=== PATIENT | male | born 1980 | race Caucasian/White ===

== ENCOUNTER 2022-11-27 16:45 | Emergency (ER) | payer MEDICAID, SELFPAY ==
[2022-11-27 16:46] VITALS: BP 140/89; PULSE 89; RESP 18; TEMP 36; O2SAT 97; BMI 36.9
--- NOTE | 2022-11-27 17:08 | CT_ITS ---
STUDY: CT Abdomen And Pelvis W/O Contrast Injection 11/27/2022 6:02 PM REASON FOR EXAM: Male, 42 years old. ABDOMINAL PAIN flank pain TECHNIQUE: Transaxial images were obtained without oral contrast, and without intravenous contrast. Individualized dose optimization techniques were used for this CT. COMPARISON: None. FINDINGS: The visualized lung bases are unremarkable. The visualized portions of the heart are within normal limits. Unremarkable liver. Unremarkable gallbladder and extrahepatic biliary system. Unremarkable spleen. Unremarkable pancreas. Unremarkable bilateral adrenal glands. No acute findings of the right kidney. No acute findings of the left kidney. Unremarkable visualized stomach. Unremarkable small intestine. Unremarkable colon. The appendix is visualized and appears unremarkable. There are no acute findings of the abdominal aorta. Unremarkable inferior vena cava. Subcentimeter mesenteric lymph nodes. Unremarkable urinary bladder. Unremarkable abdominal wall. Large posterior disc bulge osteophyte complex at L4-5 causing [address] spinal stenosis. CT/Abdomen/Pelvis without Cont IMPRESSION: (NOT LISTED IN ORDER OF SIGNIFICANCE) There are no renal stones. There is no hydronephrosis. Large posterior disc bulge osteophyte complex at L4-5 causing severe spinal stenosis. Other findings as above. Electronically Signed: Ivan Escobedo MD at 18:05 EDT ,
--- NOTE | 2022-11-27 17:09 | EDS_ITS ---
HPI History of Present Illness Chief Complaint: Flank Pain Informant: patient Onset/Context/Timing Onset: Days Context: Gradual Onset Timing: Waxes and wanes Current Severity: Mild Maximum Severity: Moderate Narrative Narrative: Patient presents with bilateral flank pain. He reports pain across his back on the lower ribs that will occasionally wrap around his abdomen. It is left and right equally. He denies hematuria or dysuria. No history of kidney stones. He states that the pain and cramping will get better after he drinks Gatorade but then will return. [facility] Medical History Depression GERD (gastroesophageal reflux disease) Seasonal allergies Home Medications prednisone 20 mg tablet 40 mg (2 x 20 mg) PO DAILY #8 tabs 11/27/22 [Rx Last Taken Unknown] Allergy/AdvReac Type Severity Reaction Status Date / Time codeine Allergy Intermediate Rash Verified 11/27/22 17:24 Social History Smoking Status: Never smoker ROS ROS ED Constitutional Constitutional ED: Denies chills or fever(s) Eyes Eyes: Denies change in vision or discharge from eye(s) ENT ENT ED: Denies discharge from eye(s), rhinorrhea or sore throat Cardiovascular Cardiovascular: Denies chest pain Respiratory/Chest Respiratory/Chest: Denies cough or dyspnea Gastrointestinal Gastrointestinal: Reports abdominal pain; Denies diarrhea, nausea or vomiting Genitourinary Genitourinary ED: Denies difficulty urinating, dysuria or hematuria Musculoskeletal Musculoskeletal: Reports back pain; Denies extremity pain Integumentary Denies Abrasions or rash Neurologic Neurologic: Reports headache(s); Denies weakness Psychiatric Psychiatric: Denies anxiety or depression Allergic/Immunologic Allergic/Immunologic ED: Denies lip swelling or urticaria EXAM Physical Exam Const Vital Signs: 11/27/22 16:46 Temperature 96.8 F L Temperature Source Temporal Pulse Rate 89 Respiratory Rate 18 Blood Pressure 140/89 H Blood Pressure Mean 106 Pulse Ox 97 Oxygen Delivery Method Room Air Positive well nourished and well developed General Appearance ED: well developed HEENT Reports normocephalic and head/scalp atraumatic Eyes PERRL and EOMs intact bilaterally Neck supple Chest Wall inspection of chest normal and palpation of chest normal Resp normal respiratory effort and clear to auscultation bilaterally Cardio regular rate and regular rhythm GI non-tender Palpation: soft Back/Spine no CVA tenderness Extremity normal to inspection Neuro oriented x3 and no sensory deficits noted Sensorium / Orientation: alert Motor Exam: strength 5/5 throughout Psych mental status grossly normal Skin no rashes or lesions noted MDM MDM MDM Narrative Medical decision making narrative: Labwork obtained to evaluate for leukocytosis, anemia, and electrolyte derangement. Urinalysis obtained to evaluate for infection/hematuria. CT flank obtained to evaluate for renal stone or hydronephrosis. 1 L of IV fluids ordered. Lab Data Attestation: I reviewed the patient's lab results. Labs: Laboratory Results - last 24 hr 11/27/22 11/27/22 16:55 17:23 WBC 9.3 RBC 5.11 Hgb 15.2 Hct 45.4 MCV 88.8 MCH 29.7 MCHC 33.5 RDW Std Deviation 43.0 RDW Coeff of Mela 13.2 Plt Count 263 MPV 11.4 Immature Gran % (Auto) 0.300 Neut % (Auto) 59.9 Lymph % (Auto) 29.6 [place] % (Auto) 7.8 Eos % (Auto) 1.9 Baso % (Auto) 0.5 Absolute Neuts (auto) 5.6 Absolute Lymphs (auto) 2.75 Nucleated RBC % 0 Sodium 140 Potassium 3.9 Chloride 108 H Carbon Dioxide 25.0 Anion Gap 7 BUN 15 Creatinine 1.17 Estim Creat Clear Calc 82.25 Est GFR (MDRD) Af Amer 88 Est GFR (MDRD) Non-Af 73 BUN/Creatinine Ratio 12.8 Glucose 104 Calcium 9.1 Urine Color Yellow Urine Clarity Clear Urine pH 5.0 Ur Specific [place] 1.025 Urine Protein 15 H Urine Glucose (UA) Normal Urine Ketones Negative Urine Occult Blood Negative Urine Nitrite Negative Urine Bilirubin Negative Urine Urobilinogen Normal Ur Leukocyte Esterase Negative Urine RBC 0 SEEN Urine WBC 0 SEEN Ur Squamous Epith Cells 0-5 SEEN Urine Bacteria 0 SEEN Urine Mucus 0 SEEN Radiography Diagnostic Testing: Clinical Impression(s) from Imaging Studies Abdomen/Pelvis CT 11/27/22 17:08 IMPRESSION: (NOT LISTED IN ORDER OF SIGNIFICANCE) There are no renal stones. There is no hydronephrosis. Large posterior disc bulge osteophyte complex at L4-5 causing severe spinal stenosis. Other findings as above. Electronically Signed: Ivan Escobedo MD at 18:05 EDT , Treatment and Re-Evaluation :: CBC was normal white count 9.3. Hemoglobin is normal at 15.2. Chemistry studies reveal normal renal function with a BUN of 15 and a creatinine 1.17. His chloride is 108. Urinalysis reveals 15 protein but no other acute abnormalities noted. On repeat evaluation patient states he does feel about 95% better after getting IV fluids. CT scan of the flank is reviewed with him. There is no evidence of renal or ureteral stone. A disc bulge at L4-5 is noted with severe spinal stenosis. Patient does report has been having intermittent sciatic symptoms on the right side. He is scheduled to see his doctor on Wednesday about this. We will treat him with a 5-day burst of steroids to help with nerve inflammation. He will follow-up with his doctor as scheduled. Return instructions given. Discharge Plan Triage Chief Complaint: Flank Pain ED Provider: Jackelin Amaya Dx/Rx/DC Orders Clinical Impression: Sciatica, Flank pain Instructions: ED Flank Pain, Uncertain Cause, ED Sciatica Prescriptions: New prednisone 20 mg tablet 40 mg PO DAILY Qty: 8 0RF Primary Care Provider: Conor Seaman Referrals: Conor Seaman MD [Primary Care Provider] - Keep Ingris appointment Care Physician,No Primary [Non-Staff] - Disposition Disposition: Home, Self Care
[2022-11-27 17:17] LABS: Bacteria 0 SEEN /hpf (None Seen); Mucous, Urine 0 SEEN /hpf (<or=2+); Red Blood Cells-Urine 0 SEEN /hpf (0-5); White Blood Cells 0 SEEN /hpf (0-5)
[2022-11-27] MEDS: 0.9% Normal Saline 1,000 ML 1000 ML IV (17:22)
[2022-11-27 17:28] LABS: Color, Urine Yellow (Yellow); Glucose, Dipstick Normal (Normal); Ketone-Dipstick Negative (Negative); Leukocyte Esterase-Dipstick Negative /ul (Negative); Nitrite-Dipstick Negative (Negative); Occult Blood-Urine Negative /ul (Negative); Protein-Dipstick 15 mg/dl (Negative); Specific Gravity, Urine 1.025 (1.002-1.030); Urine Bilirubin Dipstick Negative (Negative); Urine Clarity Clear (Clear); Urine Urobilinogen Normal (Normal)
[2022-11-27 17:32] LABS: Absolute Lymphocyte Count 2.75 X10^3/uL (0.83-4.51); Absolute Neutrophil Count 5.6 X10^3/uL (2.0-7.7); Basophil# 0.05 X10^3/uL; Basophil% 0.5 % (0-1); Eosinophil# 0.18 X10^3/uL; Eosinophils% 1.9 % (0-5); Hematocrit 45.4 % (40-54); Hemoglobin 15.2 g/dL (13.0-16.5); Lymphocyte # 2.75 X10^3/ul (0.83-4.51); Lymphocyte % 29.6 % (19-41); Mean Corp Hgb Conc 33.5 g/dL (32-36); Mean Corpuscular Hgb 29.7 pg (27.0-32.0); Mean Corpuscular Volume 88.8 fL (80-94); Mean Platelet Vol. 11.4 fl (6.2-12.0); Monocyte# 0.72 X10^3/uL; Monocyte% 7.8 % (0-10); NRBC Flagged by Analyzer 0 % (0-5); Neutrophil # 5.55 X10^3/uL (2.7-7.7); Neutrophil % 59.9 % (47-70); Platelet Count 263 K/mm3 (150-450); RBC Distribution Width CV 13.2 % (11.6-14.6); Red Blood Count 5.11 M/mm3 (4.6-6.2); White Blood Count 9.3 K/mm3 (4.4-11.0)
[2022-11-27 17:48] LABS: Anion Gap 7 (5-15); BUN 15 mg/dL (7-18); BUN/Creat Ratio 12.8 RATIO (10-20); Calcium,Total 9.1 mg/dL (8.5-10.1); Chloride 108 mmol/L (98-107); Creatinine, Serum 1.17 mg/dL (0.70-1.30); EST Glomerular Filtration Rate 73 mL/min (>60); Est Glom Filt Rate - Afr Amer 88 mL/min (>60); Estimated Creatinine Clearance 82.25 ml/min; Glucose 104 mg/dL (74-106); Potassium 3.9 mmol/L (3.5-5.1); Sodium Level 140 mmol/L (136-145)
[2022-11-27 18:02] LABS: Squamous Epithelial Cells - UA 0-5 SEEN /hpf (0-5)
[2022-11-27] MEDS: predniSONE 20 MG Tablet 40 MG PO (18:33)
== END 2022-11-27 18:37 | disposition home or self-care (01) ==
PROVIDERS: Emergency Provider Emergency Medicine; PCP Family Medicine; Visit Provider Emergency Medicine
DX: R10.9 Unspecified abdominal pain (principal); M54.30 Sciatica, unspecified side
CPT/HCPCS: 74176; 80048; 81001; 85025; 99283; J7030; A4216

== ENCOUNTER 2025-05-19 15:05 | Emergency (ER) | payer MEDICAID, SELFPAY ==
[2025-05-19 15:06] VITALS: BP 158/112; PULSE 69; RESP 18; TEMP 36.8; O2SAT 100
--- NOTE | 2025-05-19 15:09 | ED.VIS.CHEST ---
HPI History of Present Illness Chief Complaint: Chest Pain [facility] Medical History (Updated 05/19/25 @ 15:24 by Nicole Coleman) Cardiomegaly Asthma Depression Seasonal allergies GERD (gastroesophageal reflux disease) Home Medications ?Medication ?Instructions ?Recorded ?Last Taken ?Type prednisone 20 mg tablet 40 mg (2 x 20 mg) PO DAILY #8 tabs 11/27/22 Unknown Rx ondansetron 4 mg disintegrating 4 mg PO Q8H PRN PRN Nausea #10 tabs 05/19/25 Unknown Rx tablet prednisone 50 mg tablet 50 mg PO DAILY 5 days #5 tabs 05/19/25 Unknown Rx Allergy/AdvReac Type Severity Reaction Status Date / Time codeine Allergy Intermediate Rash Verified 05/19/25 15:07 Social History Smoking Status: Never smoker EXAM Physical Exam Const Vital Signs: 05/19/25 15:06 05/19/25 16:06 05/19/25 17:54 Temperature 98.2 F Temperature Source Oral Pulse Rate 69 82 55 L Respiratory Rate 18 18 18 Blood Pressure 158/112 H 158/94 H 139/110 H Blood Pressure Mean 127 115 119 Pulse Ox 100 99 Oxygen Delivery Method Room Air Room Air 05/19/25 18:00 05/19/25 18:48 Temperature 97.9 F Temperature Source Pulse Rate 69 74 Respiratory Rate 18 16 Blood Pressure 140/84 H 119/95 H Blood Pressure Mean 102 103 Pulse Ox 99 99 Oxygen Delivery Method Heart Score History: Slightly/Non-Suspicious ECG: Normal Age: </= 45 years Risk Factors: 1 or 2 Risk Factors Troponin: </= Normal Limit Score: 1 MDM MDM MDM Narrative Medical decision making narrative: HISTORY OF PRESENT ILLNESS: Chief complaint: Chest pain, shortness of breath 44-year-old male history of depression, asthma GERD and seasonal allergies. Patient states has had 1/2 weeks of squeezing chest pains located left side of his chest. Does not radiate. Is not exertional. Is not associated with food. He does note occasional shortness of breath that he attributes to his asthma. He denies bleeding diathesis. Denies recent illnesses. Denies sick contacts. Denies vomiting or diarrhea. The patient denies recent surgery in the last 4 weeks or immobilization in the last 3 days, denies previous diagnosis of DVT or PE, hemoptysis, unilateral leg swelling or malignancy with treatment the last 6 months or palliative. No estrogen use noted. Patient denies sudden onset of pain, no tearing sensation, no migratory symptoms, no new numbness, weakness or loss of sensation. Patient denies family history or personal history of Connective tissue disorders (Marfan's Syndrome, Jc Danlos etc) REVIEW OF SYSTEMS: Pertinent positives: Chest pain, shortness of breath, cough Pertinent negatives: Fevers, leg swelling, focal weakness, syncope PHYSICAL EXAM: Nursing triage notes reviewed, Vital signs reviewed Constitutional: please see [facility] HENT: MMM Eyes: Pupils equal round and reactive to light, Extraocular muscles intact Neck: No stridor, no JVD, full neck ROM Lungs: Clear to auscultation, No wheezing or rales. No increased work of breathing, no conversational dyspnea, no accessory muscle use, no nasal flaring. No respiratory distress noted Heart: Regular rate and rhythm, No murmurs, No rubs and No gallops, 2+ distal pulses (radial, femoral, posterior tibial) in all extremities Abdomen: Soft, there is no tenderness, rigidity, rebound or guarding, no obvious peritoneal signs, no palpable pulsatile abdominal masses, no auscultated abdominal bruit : No CVAT Extremities: No edema Neuro: No new focal neurological deficits, cranial nerves II through XII intact, 5/5 strength in all present extremities. Intact sensation to light touch in all present extremities, 2+ reflexes bilateral patella tendons. Skin: No rash or lesions noted MEDICAL DECISION MAKING: Chief Complaint: please see HPI External records reviewed: Reviewed prior cardiovascular testing: No recent cardiovascular testing noted in [facility]. Reviewed [facility] which reported history of COVID induced cardiomyopathy, hyperlipidemia, hypertension, KAI, obesity Factors affecting care: As per HPI Social determinants of health: Denies illicit drug use, cocaine, methamphetamine History obtained from others: Significant other Consults: none [facility] Narrative: The patient was initially hypertensive with a blood pressure 158/112 otherwise afebrile saturating 100% room air. Exam without focal cardiopulmonary abnormalities. No stigmata of VTE, CHF or aortic dissection on initial exam I considered the following differential diagnosis: ACS, arrhythmia, anemia, electrolyte disturbance, pneumonia, aortic dissection, PE I obtained a broad lab and imaging work to further determine if the patient was suffering from a life-threatening etiology. While I considered pulmonary embolism as a potential etiology the patient low risk Wells score and was not tachycardic or hypoxic his EKG had no signs of heart strain. I have a low suspicion for PE at this time. No indication for additional testing such as D-dimer or CT at this time While I considered aortic dissection as a potential etiology the patient had no pulse deficits, had no history personal or family or otherwise of connective tissue disorders, I have a low suspicion for aortic dissection. ALL IMAGES (IF OBTAINED) HAVE BEEN PERSONALLY REVIEWED AND INTERPRETED BY MYSELF. EKG with normal sinus rhythm rate of 60, left ax deviation, normal intervals, no STEMI, no sign of right heart strain. No specific changes associated with pericarditis High-sensitivity troponin is negative, no evidence of myocardial ischemia CBC without leukocytosis, severe anemia, no thrombocytopenia. BMP without evidence of significant electrolyte abnormalities, no anion gap, no acute kidney injury. I have personally reviewed the patient's chest x-ray. Chest x-ray is unremarkable for pulmonary edema, pneumothorax, pneumonia or focal cardiopulmonary abnormality. COVID/RSV/flu negative Delta troponin also negative essentially ruling out ACS based on [facility]'s high-sensitivity troponin protocol Low risk heart score. The synthesis of the patient's history, physical exam, labs images suggest no acute life-limiting etiology to explain the patient's symptoms. It could be GI in origin. Recommend him follow-up with the GI doctor locally as well as final inspector and tester. Strict return precaution were discussed. The patient and/or family, caregivers express understanding. The patient and/or family, caregivers agrees with the plan. Shared decision making: I will have a discussion with the patient and or visitors regarding risk/benefits of further testing or admission. They will be made aware of of the risk/benefits inherent in this decision they will be given the opportunity to voice understanding. Total critical care time today provided was at least 0 minutes. This excludes separately billable procedures. Critical care time (if documented) is secondary to the patient having high probability of clinically significant/life threatening deterioration in the patient's condition which required my urgent intervention. Impression: 1. Chest Pain 2. History of Cardiomyopathy Dispo: Discharge home This note was generated with [employer] dictation software. It may contain incorrect words, spelling, and punctuation that were not noted in review of the chart prior to signing. Lab Data Labs: Laboratory Results - last 24 hr 05/19/25 05/19/25 15:30 17:40 WBC 10.9 RBC 5.15 Hgb 15.6 Hct 44.3 MCV 86.0 MCH 30.3 MCHC 35.2 RDW Std Deviation 41.4 RDW Coeff of Mela 13.2 Plt Count 281 MPV 11.0 Immature Gran % (Auto) 0.500 Neut % (Auto) 63.8 Lymph % (Auto) 25.7 [place] % (Auto) 7.8 Eos % (Auto) 1.7 Baso % (Auto) 0.5 Absolute Neuts (auto) 7.0 Absolute Lymphs (auto) 2.80 Nucleated RBC % 0 Sodium 141 Potassium 4.3 Chloride 106 Carbon Dioxide 23.1 Anion Gap 12 BUN 20 H Creatinine 1.20 Est GFR (MDRD) Non-Af 76 BUN/Creatinine Ratio 16.8 Glucose 92 Calcium 9.7 Troponin T High Sens 10 Troponin T Hi Sens 2 Hr 8 Radiography Diagnostic Testing: Clinical Impression(s) from Imaging Studies Chest X-Ray 05/19/25 15:40 IMPRESSION: No acute cardiopulmonary process. Reading Location: [facility] Discharge Plan Triage Chief Complaint: Chest Pain ED Provider: Celestino Ortiz Dx/Rx/DC Orders Instructions: ED Chest Pain, Uncertain Cause Prescriptions: New ondansetron 4 mg tablet,disintegrating 4 mg PO Q8H PRN PRN (Reason: Nausea) Qty: 10 0RF prednisone 50 mg tablet 50 mg PO DAILY 5 Days Qty: 5 0RF No Action prednisone 20 mg tablet 40 mg PO DAILY Qty: 8 0RF Primary Care Provider: Conor Seaman Referrals: Your Trumpet Player [Other] Friend,DO Claude [Med Staff - Active Staff, Gastroenterology] Conor Seaman MD [Primary Care Provider, Medical] Activity Restrictions/Additional Instructions: Thank you for trusting us with your care today! Your labs images are reassuring. Specifically they do not show signs of heart attack, pneumonia, significant blood count or electrolyte abnormalities. Please take Tylenol (2 pills, 650 mg), ibuprofen (2 pills, 400 mg) every 6 hours as needed for pain and fever control. Please take Zofran as needed for nausea vomiting control. Please begin taking a proton pump inhibitor (i.e. Nexium). This can be obtained [id number]. Please return to the emergency department if your symptoms change or worsen. Please follow with Gastroenterology (Dr. Rodriguez) and your cardiology for further outpatient evaluation and management. Print Language: Slovenian Disposition Disposition: Home, Self Care Discharge Date/Time: 05/19/25 18:58
--- NOTE | 2025-05-19 15:13 | EKG12_ITS ---
Test Reason : CP Blood Pressure : */* mmHG Vent. Rate : 60 BPM Atrial Rate : 60 BPM P-R Int : 156 ms QRS Dur : 94 ms QT Int : 380 ms P-R-T Axes : -22 -8 -1 degrees QTcB Int : 380 ms Normal sinus rhythm Minimal voltage criteria for LVH, may be normal variant ( R in aVL ) Borderline ECG Confirmed by Judah Rahman ([id number]), writer editor JOLYNN ROMAN ([id number]) on 05/25/2025 7:28:40 AM Referred By: Confirmed By: Judah Rahman
--- OUTSIDE RECORDS SUMMARY | 2025-05-19 15:32 | XMS RPT_ITS | CCD ---
Author Organization [facility] Care Team Providers Care Pr Manager Name Role Phone PATRICIALAWRENCEKYLIE MURRAY A Unavailable Unavailable PATRICIASHARONA KYLIE A Unavailable Unavailable Conor Pantoja MD Primary Care Provider Conor Pantoja MD Primary Care Provider Conor Pantoja MD Primary Care Provider Conor Pantoja MD Primary Care Provider Conor Pantoja Care Unavailable Jackelin Amaya Attending Unavailable DENG WOLF Attending Unavailable DENG WOLF Admitting Unavailable CONOR PANTOJA Primary Care Unavailable CONOR PANTOJA Primary Care Unavailable DENG WOLF Attending Unavailable DENG WOLF Admitting Unavailable Conor Pantoja MD Primary Care Provider Haagen OIL PIPE INSPECTOR HELPER.Asha ALLEN Unavailable Suppan OIL PIPE INSPECTOR HELPER.TIFFANY, Denice A Unavailable SILAS BROWN Admitting Unavailable SILAS BROWN Attending Unavailable CONOR PANTOJA Primary Care Unavailable Suppan OIL PIPE INSPECTOR HELPER.TIFFANY, Denice A Unavailable Suppan OIL PIPE INSPECTOR HELPER.TIFFANY, Denice A Unavailable SILAS BROWN Attending Unavailable CONOR PANTOJA Primary Care Unavailable MEGHAN QUEZADA Attending Unavailable CONOR PANTOJA Primary Care Unavailable SILAS BROWN Attending Unavailable RISA STEINER Referring Unavailable CONOR PANTOJA Primary Care Unavailable SILAS BROWN Attending Unavailable CONOR PANTOJA Primary Care Unavailable CONOR PANTOJA Primary Care Unavailable IGOR QUIJANO Referring Unavailable CONOR PANTOJA Primary Care Unavailable DEBORA BALDWIN Referring Unavailable CONOR PANTOJA Attending Unavailable CONOR PANTOJA Primary Care Unavailable CONOR PANTOJA Referring Unavailable CONOR PANTOJA Primary Care Unavailable CONOR PANTOJA Primary Care Unavailable CONOR PANTOJA Referring Unavailable KIT, CONOR Ramos Primary Care Unavailable KIT, CONOR Ramos Referring Unavailable MAK MORALES Attending Unavailable MEGHAN NAIK Referring Unavailable KIT, CONOR Ramos Primary Care Unavailable MEGHAN NAIK Referring Unavailable CONOR PANTOJA Primary Care Unavailable KIT, CONOR Ramos Primary Care Unavailable ALYSE MAGANA Attending Unavailable KIT, CONOR Ramos Referring Unavailable KIT, CONOR Ramos Primary Care Unavailable KIT, CONOR Ramos Referring Unavailable SILAS BROWN Referring Unavailable KIT, CONOR Ramos Primary Care Unavailable KIT, CONOR Ramos Primary Care Unavailable RISA CAMPA Attending Unavailable KIT, CONOR Ramos Primary Care Unavailable RISA CAMPA Referring Unavailable KIT, CONOR Ramos Attending Unavailable KITCONOR Primary Care Unavailable KIT, CONOR Ramos Referring Unavailable KIT, CONOR Ramos Primary Care Unavailable DEBORA BALDWIN Referring Unavailable KIT, CONOR Ramos Primary Care Unavailable Allergies Allergy Classification Reported Allergen(s) Allergy Type Date of Onset Reaction(s) Facility (20 sources) Acetaminophen / Codeine; Translations: [ACETAMINOPHEN-CO DEINE] Drug Allergy 6 Rash [facility] Repository (20 sources) Seasonal allergy; Translations: [SEASONAL ALLERGIES] Propensity to adverse reactions (disorder) 7 [facility] Repository (20 sources) montelukast; Translations: [MONTELUKAST SODIUM] Drug Allergy 9 Other: See Comments [facility] Work Phone: (1 source) Codeine Drug Allergy 3 [facility] (1 source) Codeine Drug Allergy 3 [facility] Repository Medications Current Medications Medication Drug Class(es) Dates Sig (Normalized) Sig (Original) acetaminophen 325 mg / HYDROcodone bitartrate 5 mg oral tablet (1 source) Opioid Agonist Start: 06-06-2024 End: 06-20-2024 take 1 tablet by mouth every eight hours as needed for pain HYDROcodone-aceta minophen (NORCO) 5-325 mg per tablet Indications: Radiculopathy, lumbar region Take 1 tablet by mouth every 8 hours as needed for pain for up to 14 days. 24 tablet 06/06/2024 06/20/2024 Active albuterol 0.83 mg/ml inhalation solution (20 sources) beta2-Adrenergic Agonist Start: 06-13-2021 take 2.5 mg by inhalation every four hours as needed albuterol (PROVENTIL) 2.5 mg /3 mL (0.083 %) nebulizer solution Use 3 mL via nebulizer every 4 hours as needed for wheezing/shortnes s of breath. Use over 5-15minutes. 30 Vial 1 06/13/2021 Active Start: 05-29-2020 End: 03-06-2021 take 2 puff(s) by mouth every four hours as needed for wheezing albuterol HFA (VENTOLIN HFA) 90 mcg/actuation inhaler INHALE 2 PUFFS BY MOUTH DIRECTED EVERY 4 HOURS NEEDED FOR WHEEZING OR SHORTNESS OF BREATH 18 g 3 03/07/2021 Active Comment on above: INHALE 2 PUFFS BY MO UTH DIRECTED EVERY 4 HOURS NEEDED FOR WHEEZING OR SHORTNESS OF BREATH Use 3 mL via nebuliz er every 4 hours as needed for wheezing/shortness of breath. Use over 5-15minutes. albuterol 0.833 mg/ml / ipratropium bromide 0.167 mg/ml inhalation solution (20 sources) Anticholinergic, beta2-Adrenergic Agonist Start: End: take 3 mL by inhalation every six hours as needed for wheezing ipratropium-albuter ol (DUONEB) 0.5 mg-3 mg(2.5 mg base)/3 mL nebu Indications: Mild persistent asthma without complication (HCC) Inhale 3 mL as instructed every 6 hours as needed (wheezing). 30 mL 11 03/07/2021 Active Comment on above: Inhale 3 mL as instr ucted every 6 hours as needed (wheezing). amLODIPine 5 mg oral tablet (20 sources) Dihydropyridine Calcium Channel Gloria Start: take 1 tablet by mouth once daily amLODIPine (NORVASC) 5 mg tablet Indications: Primary hypertension Take 1 tablet by mouth once daily. 90 tablet 3 10/10/2024 Active Start: 12-06-2023 take 1 tablet by miranda once daily amLODIPine (NORVASC) 5 mg tablet Indications: Primary hypertension Take 1 tablet by mouth once daily. 90 tablet 3 12/06/2023 Active amoxicillin 500 mg oral capsule (4 sources) Penicillin-class Antibacterial Start: 09-17-2023 End: 09-24-2023 take 1 capsule by mouth three times daily amoxicillin (AMOXIL) 500 mg capsule Indications: Other infective acute otitis externa of left ear Take 1 capsule by mouth three times a day for 7 days. 21 capsule 0 09/17/2023 09/24/2023 Active benzonatate 100 mg oral capsule (15 sources) Non-narcotic Antitussive Start: 07-17-2024 take 1 capsule by mouth three times daily as needed benzonatate (TESSALON PERLE) 100 mg capsule Indications: URI, acute Take 1 capsule by mouth three times a day as needed. 20 capsule 07/17/2024 Active betamethasone 0.5 mg/ml / clotrimazole 10 mg/ml topical cream (20 sources) Azole Antifungal, Corticosteroid Start: 12-22-2022 clotrimazole-beta methasone (LOTRISONE) cream Apply to affected area twice daily. APPLY TO AFFECTED AREA 45 g 4 12/22/2022 Active Comment on above: Apply to affected ar ea twice daily. APPLY TO AFFECTED AREA cephalexin 500 mg oral capsule (2 sources) Cephalosporin Antibacterial Start: 12-29-2023 End: 01-03-2024 take 1 capsule by mouth four times daily cephALEXin (KEFLEX) 500 mg capsule Indications: Cellulitis of skin Take 1 capsule by mouth four times daily for 5 days. 20 capsule 0 12/29/2023 01/03/2024 Active Start: 10-17-2020 End: 10-24-2020 take 1 capsule by mouth four times daily cephALEXin (KEFLEX) 500 mg capsule Take 1 capsule by mouth four times daily for 7 days. 28 capsule 10/17/2020 10/24/2020 cetirizine hydrochloride 10 mg oral tablet (20 sources) Histamine-1 Receptor Antagonist Start: 02-07-2019 take 1 tablet by mouth once daily as needed cetirizine (ZYRTEC) 10 mg tablet Indications: Allergic rhinitis, unspecified seasonality, unspecified trigger Take 1 tablet by mouth once daily as needed. 30 tablet 11 02/07/2019 Active Comment on above: Take 1 tablet by [facility] once daily as needed. CPAP (20 sources) Start: 06-12-2020 CPAP Initiate Auto PAP @ 5-20 cm of water with humidification. Mask (per patient preference) optional chin strap (if indicated) , filters, tubing, humidifier and lifetime supplies. 1 Device 06/12/2020 Active Start: 06-12-2020 CPAP Initiate Auto PAP @ 5-20 cm of water with humidification. Mask (per patient preference) optional chin strap (if indicated) , filters, tubing, humidifier and lifetime supplies. 1 Device 0 06/12/2020 Active Comment on above: Initiate Auto PAP @ 5-20 cm of water with humidification. Mask (per patient preference) optional chin strap (if indicated) , filters, tubing, humidifier and lifetime supplies. fluticasone propionate 0.05 mg/actuat metered dose nasal spray (20 sources) Corticosteroid Start: 02-08-20 19 take 2 spray(s) nasal route once daily fluticasone (FLONASE) 50 mcg/actuation nasal spray Use 2 Sprays in each nostril once daily. 1 Bottle 11 02/07/2019 Active Comment on above: Use 2 Sprays in each nostril once daily. 120 actuat fluticasone propionate 0.115 mg/actuat / salmeterol 0.021 mg/actuat metered dose inhaler (20 sources) Corticosteroid, beta2-Adrenergic Agonist Start: 10-25-19 take 2 puff(s) by mouth twice daily fluticasone-salmeter ol HFA (ADVAIR HFA) 115-21 mcg/actuation inhaler Indications: Mild persistent asthma without complication (HCC) Inhale 2 Puffs as instructed twice daily. Rinse mouth after use. 12 g 11 10/24/2021 Active Start: 10-24-2021 End: 10-24-2022 take 2 puff(s) by mouth twice daily fluticasone-salmeterol HFA (ADVAIR HFA) 115-21 mcg/actuation inhaler Indications: Mild persistent asthma without complication Inhale 2 Puffs as instructed twice daily. Rinse mouth after use. 12 g 11 10/24/2021 10/24/2022 Active Start: 09-05-2019 End: 04-30-2022 fluticasone-salmeterol (ADVA IR DISKUS) 250-50 mcg/dose One inhalation twice a day. Rinse mouth out after use. 1 Inhaler 5 09/05/2019 04/30/2022 Discontinued Start: 09-05-2019 fluticasone-sa lmeterol (ADVAIR DISKUS) 250-50 mcg/dose One inhalation twice a day. Rinse mouth out after use. 1 Inhaler 5 09/05/2019 Active Start: 09-05-2019 fluticasone-sa lmeterol (ADVAIR DISKUS) 250-50 mcg/dose One inhalation twice a day. Rinse mouth out after use. 1 Inhaler 5 09/05/2019 Active Comment on above: One inhalation twice a day. Rinse mouth out after use. Inhale 2 Puffs as in structed twice daily. Rinse mouth after use. gabapentin 300 mg oral capsule (20 sources) Anti-epileptic Agent Start: End: take 2 capsules by mouth three times daily gabapentin (NEURONTIN) 300 mg capsule Indications: neuropathic pain Take 2 capsules by mouth three times a day for 90 days. 180 capsule 2 09/15/2023 Active Start: 01-07-2023 End: 04-14-2023 take 1 capsule by mouth three times daily gabapentin (NEURONTIN) 300 mg capsule Indications: neuropathic pain Take 1 capsule by mouth three times daily for 90 days. 90 capsule 2 01/07/2023 04/14/2023 Discontinued Comment on above: Take 1 capsule by mo [facility] three times daily for 90 days. Take 2 capsules by m out three times a day for 90 days. guanFACINE 2 mg oral tablet (20 sources) Central alpha-2 Adrenergic Agonist Start: 04-11-2024 guanFACINE (TENEX) 2 mg tablet 04/11/2024 Active Start: 11-20-2022 End: 05-15-2024 take 2 tablets by mouth once daily at bedtime guanFACINE (TENEX) 1 mg tablet Take 2 mg by mouth daily at bedtime. 11/20/2022 05/15/2024 Discontinued Start: 11-20-2022 [facility] guanFACINE (TENEX) 1 mg tablet Take 1 mg by mouth daily at bedtime. 11/20/2022 Active Comment on above: Take 1 mg by mouth d aily at bedtime. iv contrast (will be provided with radiology test) (1 source) Start: End: inject 1 dose intravenously once iv contrast (will be provided with radiology test) Indications: Headache, unspecified headache type , Mental confusion MRI Brain Inject, intravenously, once for 1 dose.No IV access, insert saline lock prior to beginning of sedation, infusion, injection of imaging exam.Discontinue saline lock post exam. If Pt. has a central line or IVAD, may access for administration according to line specific nursing protocol.Once exam is complete flush line and de-access according to line specific nursing protocol in the MR contrast administration guidelines link 1 Each 0 11/22/2023 11/23/2023 Active melatonin 3 mg oral tablet (20 sources) Start: End: melatonin 3 mg tablet TAKE 1 TABLET APPROXIMATELY 7PM NIGHTLY. 30 tablet 2 07/14/2023 Active Comment on above: Take 1 tablet approx imately 7PM nightly. mometasone furoate 1 mg/ml topical cream (20 sources) Corticosteroid Start: mometasone (ELOCON) 0.1 % cream Indications: Eczema, unspecified type Apply 1 application to affected area once daily. 45 g 12/29/2023 Active mupirocin 0.02 mg/mg topical ointment (20 sources) RNA Synthetase Inhibitor Antibacterial Start: 025 End: mupirocin (BACTROBAN) 2 % ointment Apply 1/2 ointment with a cotton swab in each nostril 2x daily for five days preop Patient should start on June 01, 2024. 22 g 06/01/2024 06/05/2024 Active End: 01-01-2025 mupirocin (BACTROBAN) 2% oin t Use 0.5 g in the nose two times a day. 01/01/2025 Discontinued (Other) mupirocin (BACTR OBAN) 2% oint Use 0.5 g in the nose two times a day. Active omeprazole 40 mg delayed release oral capsule (20 sources) Proton Pump Inhibitor Start: 09-03-2020 End: 08-24-2024 take 1 capsule by mouth once daily omeprazole (PRILOSEC) 40 mg capsule Indications: GERD with esophagitis Take 1 capsule by mouth once daily. 30 capsule 5 08/25/2024 Active Comment on above: Take 1 capsule by mo uth once daily. polyethylene glycol 3350 536878 mg / potassium chloride 2970 mg / sodium bicarbonate 6740 mg / sodium chloride 5860 mg / sodium sulfate 49350 mg powder for oral solution (1 source) Osmotic Laxative Start: 01-19-2024 End: 01-19-2024 peg 3350-Electrolytes (GOLYTELY) 236-22.74-6.74 -5.86 gram suspension Indications: History of colonic polyps , Screen for colon cancer Take 4,000 mL by mouth one time only for 1 dose. Refer to printed prep instructions from your provider. 4000 mL 01/19/2024 01/19/2024 Active QELBREE 100 mg capsule, extended release (20 sources) Start: 09-02-2023 QELBREE 100 mg capsule, extended release Take 200 mg by mouth every morning. Take a total of 500 mg; two 200 mg and one 100 mg 09/02/2023 Active Start: 09-02-2023 take 2 capsules by m outh once daily in the morning QELBREE 100 mg capsule, extended release Take 200 mg by mouth every morning. 09/02/2023 Active Start: 09-02-2023 take 2 capsules by m outh once daily in the morning QELBREE 100 mg capsule, extended release Take 200 mg by mouth every morning. 0 09/02/2023 Active Start: 09-02-2023 QELBREE 100 mg capsule, extended release Take by mouth every morning. 0 09/02/2023 Active Completed/Discontinued Medications Medication Drug Class(es) Dates Sig (Normalized) Sig (Original) acetaminophen 500 mg oral tablet (20 sources) End: 01-01-2025 acetaminophen (TYLENOL) 500 mg tablet Take 1,000 mg by mouth as needed for pain. 01/01/2025 Discontinued atomoxetine 25 mg oral capsule (17 sources) Norepinephrine Reuptake Inhibitor Start: 11-17-2022 End: 06-17-2023 take 1 capsule by mouth every twelve hours atomoxetine (STRATTERA) 25 mg capsule Take 1 capsule by mouth every 12 hours 6am/6pm. 11/17/2022 06/17/2023 Discontinued End: 09-03-2023 take 1 capsule by mouth once daily atomoxetine (STRATTERA) 40 mg capsule Take 40 mg by mouth once daily. 09/03/2023 Discontinued Comment on above: Take 1 capsule by mo [facility] every 12 hours 6am/6pm. Take 40 mg by mouth once daily. 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 30 tablet 5 04/30/2022 06/12/2022 Discontinued (Other) Comment on above: Take 1 tablet by [facility] once daily. ciprofloxacin 3 mg/ml / dexamethasone 1 mg/ml otic suspension (20 sources) Corticosteroid, Quinolone Antimicrobial Start: 09-20-19 End: 01-02-20 ciprofloxacin-dexAME THasone (CIPRODEX) 0.3-0.1 % otic suspension Use 4 Drops in both ears two times a day. 7.5 mL 09/20/2023 01/01/2025 Discontinued citalopram 40 mg oral tablet (20 sources) Serotonin Reuptake Inhibitor Start: 10-25-19 End: 12-03-19 23 take 1 tablet by mouth once daily citalopram (CELEXA) 40 mg tablet Indications: Anxiety and depression Take 1 tablet by mouth once daily. 30 tablet 5 10/24/2021 12/02/2022 Discontinued Start: 04-08-2020 End: 10-24-2021 take 1 tablet by mouth once daily citalopram (CELEXA) 20 mg tablet Indications: Anxiety and depression Take 1 tablet by mouth once daily. 14 tablet 0 09/26/2021 10/24/2021 Discontinued (Adjust Sig - Block E-Cancel) Comment on above: Take 1 tablet by miranda once daily. cloNIDine hydrochloride 0.1 mg oral tablet (20 sources) Central alpha-2 Adrenergic Agonist Start: 2018 End: 2022 take 1 tablet by mouth twice daily cloNIDine HCl (CATAPRES) 0.1 mg tablet Indications: Anxiety and depression Take 1 tablet by mouth twice daily for 14 days. 28 tablet 10/24/2021 04/30/2022 Discontinued Comment on above: Take 1 tablet by miranda twice daily. Take 1 tablet by [facility] twice daily for 14 days. colistin 3 mg/ml / hydrocortisone 10 mg/ml / neomycin 3.3 mg/ml / thonzonium bromide 0.5 mg/ml otic suspension (20 sources) Aminoglycoside Antibacterial, Corticosteroid Start: 2023 End: 2024 [id number] onzonium (CORTISPORIN-TC) otic suspension Indications: Other infective acute otitis externa of left ear Use 3 Drops in the ears four times daily. 10 mL 09/17/2023 01/01/2025 Discontinued cyclobenzaprine hydrochloride 10 mg oral tablet (20 sources) Muscle Relaxant Start: 2021 End: 2022 take 1 tablet by mouth three times daily as needed for muscle spasms cyclobenzaprine (FLEXERIL) 10 mg tablet Indications: Muscle strain Take 1 tablet by mouth three times daily as needed for muscle spasm. 12 tablet 08/13/2021 12/02/2022 Discontinued Comment on above: Take 1 tablet by [facility] three times daily as needed for muscle spasm. dexamethasone 6 mg oral tablet (1 source) Corticosteroid Start: 2020 End: 2020 take 1 tablet by mouth once daily at breakfast dexAMETHasone (DECADRON) 6 mg tablet Take 1 tablet by mouth daily with breakfast. 5 tablet 09/04/2020 11/22/2020 Discontinued (Course of therapy completed) docusate sodium 100 mg oral capsule (14 sources) Start: 2024 End: 2024 take 1 capsule by mouth twice daily docusate sodium (COLACE) 100 mg capsule Take 1 capsule by mouth two times a day. 50 capsule 06/06/2024 12:48 PM EST 06/06/2024 01/01/2025 Discontinued doxycycline monohydrate 100 mg oral tablet (1 source) Tetracycline-class Drug Start: 2020 End: 2020 take 1 tablet by mouth twice daily doxycycline monohydrate 100 mg tablet Indications: Cellulitis of right lower extremity Take 1 tablet by mouth twice daily for 10 days. 20 tablet 11/22/2020 12/02/2020 30 actuat fluticasone furoate 0.2 mg/actuat / vilanterol 0.025 mg/actuat dry powder inhaler (19 sources) Corticosteroid, beta2-Adrenergic Agonist Start: 2019 End: 2021 take 1 dose by mouth once daily BREO ELLIPTA 200-25 mcg/dose inhaler INHALE 1 INHALATION INSTRUCTED ONCE DAILY. RINSE MOUTH OUT AFTER USE. 1 Each 5 06/13/2019 04/30/2022 Discontinued Comment on above: INHALE 1 INHALATION INSTRUCTED ONCE DAILY. RINSE MOUTH OUT AFTER USE. Gatorade Sports Drink (20 sources) Start: 2021 End: 2022 Gatorade Sports Drink Use as directed for Miralax / Gatorade Bowel Prep Kit 08/06/2021 12/22/2022 Discontinued Start: 08-06-2021 End: 12-22-2022 Gatorade Sports Drink Use as directed for Miralax / Gatorade Bowel Prep Kit 0 08/06/2021 12/22/2022 Discontinued Start: 08-06-2021 Gatorade Sport s Drink Use as directed for Miralax / Gatorade Bowel Prep Kit 0 08/06/2021 Active Comment on above: Use as directed for Miralax / Gatorade Bowel Prep Kit ibuprofen 600 mg oral tablet (20 sources) Nonsteroidal Anti-inflammatory Drug End: 01-02-20 take 1 tablet by mouth once daily as needed for pain ibuprofen (MOTRIN) 600 mg tablet Take 600 mg by mouth once daily as needed for pain (pain). Takes 600-800mg dose 01/01/2025 Discontinued meloxicam 15 mg oral tablet (20 sources) Nonsteroidal Anti-inflammatory Drug Start: 01-08-20 End: 01-19-20 24 take 1 tablet by mouth once daily meloxicam (MOBIC) 15 mg tablet Indications: Bulging lumbar disc , Spinal stenosis of lumbar region without neurogenic claudication Take 1 tablet by mouth once daily. Take this directly following a meal 60 tablet 1 01/07/2023 01/19/2024 Discontinued (Discontinued by Patient) Comment on above: Take 1 tablet by miranda th once daily. Take this directly following a meal methocarbamol 750 mg oral tablet (14 sources) Muscle Relaxant Start: 06-06-19 End: 01-02-20 take 1 tablet by mouth every eight hours as needed methocarbamol (ROBAXIN) 750 mg tablet Take 1 tablet by mouth three times a day as needed. 60 tablet 06/06/2024 12:48 PM EST 06/06/2024 01/01/2025 Discontinued nicotine 2 mg chewing gum (10 sources) Cholinergic Nicotinic Agonist Start: 06-12-19 End: 01-08-20 take 2 mg by mouth every two hours as needed nicotine polacrilex (NICORETTE) 2 mg gum Take 1 Each by mouth every 2 hours as needed. 190 Each 0 06/12/2022 06/15/2022 Discontinued Comment on above: Take 1 Each by mouth every 2 hours as needed. olopatadine 1 mg/ml ophthalmic solution (20 sources) Histamine-1 Receptor Inhibitor Start: 09-27-19 End: 01-08-20 take 1 drop(s) into the eye(s) twice daily olopatadine (PATANOL) 0.1 % ophthalmic solution Indications: Chemosis of right conjunctiva Use 1 Drop in the right eye twice daily. 5 mL 09/26/2021 01/07/2023 Discontinued (Course of therapy completed) Start: 09-26-2021 take 1 drop(s) into the eye(s) twice daily olopatadine (PATANOL) 0.1 % ophthalmic solution Indications: Chemosis of right conjunctiva Use 1 Drop in the right eye twice daily. 5 mL 0 09/26/2021 Active Comment on above: Use 1 Drop in the ri ght eye twice daily. perflutren lipid microspheres 1.3 mL in NaCl (PF) 0.9% 10 mL injection (DEFINITY) (20 sources) Start: 2 End: 3 perflutren lipid microspheres 1.3 mL in NaCl (PF) 0.9% 10 mL injection (DEFINITY) polyethylene glycol 3350 86672 mg powder for oral solution (20 sources) Osmotic Laxative Start: 2 End: 3 polyethylene glycol 3350 (MIRALAX, GLYCOLAX) 17 gram/dose powder Use as directed for Miralax / Gatorade Bowel Prep Kit 238 g 09/17/2021 12/22/2022 Discontinued Comment on above: Use as directed for Miralax / Gatorade Bowel Prep Kit predniSONE 10 mg oral tablet (4 sources) Start: 3 End: 3 take 2 tablets by mouth once daily, then take 1 tablet by mouth once daily predniSONE (DELTASONE) 10 mg tablet Indications: Bulging lumbar disc , Spinal stenosis of lumbar region without neurogenic claudication 2 po q day for 5 days, then 10 mg po q day for 5 days. 15 tablet 0 12/02/2022 01/07/2023 Discontinued (Course of therapy completed) Start: 11-27-2022 take 40 mg by mouth once daily Prednisone Active 40 MG PO DAILY November 27, 2022 12:00am Comment on above: 2 po q day for 5 day s, then 10 mg po q day for 5 days. sertraline 50 mg oral tablet (1 source) Serotonin Reuptake Inhibitor Start: 10-24-2021 End: 10-24-2021 take 0.5 tablet by mouth once daily, then take 1 tablet by mouth once daily sertraline (ZOLOFT) 50 mg tablet Indications: Anxiety and depression Take 1/2 tab once a day orally for one week then 1 tab once a day 30 tablet 5 10/24/2021 10/24/2021 Discontinued Comment on above: Take 1/2 tab once a day orally for one week then 1 tab once a day 125 ml sodium chloride 9 mg/ml prefilled syringe (20 sources) Start: 09-01-2021 End: 12-01-2022 sodium chloride 0.9 % (flush) 10 mL (BD POSIFLUSH) Problems Active Problems Problem Classification Problem Date Documented Da te Episodic/Chronic Abdominal pain (20 sources) Flank pain; Translations: [Unspecified abdominal pain] Onset: 08-08-2015 Resolved: 09-21-2018 11-27-2022 Episodic Acquired foot deformities (1 source) Acquired bilateral pes planus; Translations: [Flat foot [pes planus] (acquired), right foot] 12-14-2022 Episodic Allergic reactions (1 source) Eczema; Translations: [Dermatitis, unspecified] 12-29-2023 Episodic Anxiety disorders (20 sources) Mixed anxiety and depressive disorder; Translations: [Anxiety disorder, unspecified] Onset: 08-08-2015 08-08-2015 Chronic Asthma (20 sources) Uncomplicated mild persistent asthma; Translations: [Mild persistent asthma, uncomplicated] Onset: 08-08-2015 08-08-2015 Chronic Conditions associated with dizziness or vertigo (1 source) Lightheadedness; Translations: [Dizziness and giddiness] 01-20-2024 Episodic Disorders of lipid metabolism (20 sources) Mixed hyperlipidemia; Translations: [Mixed hyperlipidemia] Onset: 09-01-2021 Chronic Esophageal disorders (12 sources) Gastro-esophageal reflux disease with esophagitis; Translations: [Gastroesophageal reflux disease with esophagitis without hemorrhage] Onset: 12-18-2024 Chronic Essential hypertension (20 sources) Essential hypertension; Translations: [Essential (primary) hypertension] Onset: 12-06-2023 12-06-2023 Chronic Headache; including migraine (3 sources) Headache; Translations: [Headache, unspecified headache type] 11-22-2023 Episodic Immunizations and screening for infectious disease (1 source) Viral screening status; Translations: [Encounter for screening for other viral diseases] 11-22-2023 Episodic Mood disorders (1 source) Mood disorders; Translations: [Anxiety and depression] Onset: 08-08-2015 Other and unspecified benign neoplasm (5 sources) History of polyp of colon; Translations: [Personal history of colonic polyps] Episodic Other and unspecified benign neoplasm (1 source) Tubular adenoma ; Translations: [Benign neoplasm, unspecified site] Episodic Other circulatory disease (20 sources) Disorder of thoracic aorta; Translations: [Other specified disorders of arteries and arterioles] Onset: 12-29-2023 12-29-2023 Chronic Other circulatory disease (2 sources) Other specified disorders of arteries and arterioles; Translations: [Enlarged thoracic aorta] Onset: 12-29-2023 Chronic Other connective tissue disease (1 source) Pain in left lower limb; Translations: [Pain in left leg] 10-17-2020 Episodic Other ear and sense organ disorders (1 source) Sensorineural hearing loss, bilateral; Translations: [Sensorineural hearing loss, bilateral] Chronic Other ear and sense organ disorders (1 source) Ear pressure sensation; Translations: [Other specified disorders of left ear] Episodic Other ear and sense organ disorders (1 source) Bilateral tinnitus; Translations: [Tinnitus, bilateral] Episodic Other ear and sense organ disorders (1 source) Acute infective otitis externa; Translations: [Other infective otitis externa, left ear] 09-17-2023 Episodic Other gastrointestinal disorders (4 sources) Altered bowel function; Translations: [Other specified symptoms and signs involving the digestive system and abdomen] 12-18-2024 Episodic Other gastrointestinal disorders (1 source) Change in bowel habit; Translations: [Change in bowel habits] Onset: 01-01-2025 Episodic Other gastrointestinal disorders (1 source) Other specified symptoms and signs involving the digestive system and abdomen; Translations: [Change in bowel function] Onset: 12-18-2024 Episodic Other liver diseases (5 sources) Alkaline phosphatase raised; Translations: [Abnormal levels of other serum enzymes] 12-19-2024 Episodic Other liver diseases (1 source) Abnormal levels of other serum enzymes; Translations: [Elevated alkaline phosphatase level] Onset: 12-22-2024 Episodic Other lower respiratory disease (20 sources) Dyspnea; Translations: [Shortness of breath] Onset: 09-01-2021 Resolved: 04-30-2022 Episodic Other nervous system disorders (1 source) Organic sleep-wake cycle disorder; Translations: [Circadian rhythm sleep disorder, unspecified type] Chronic Other non-traumatic joint disorders (2 sources) Pain in left knee; Translations: [Pain in joint, lower leg] Episodic Other nutritional; endocrine; and metabolic disorders (20 sources) Obese class II; Translations: [Obesity, unspecified] Onset: 09-01-2021 Chronic Other screening for suspected conditions (not mental disorders or infectious disease) (7 sources) Patient encounter status; Translations: [Encounter for screening for cardiovascular disorders] Onset: 02-12-2025 Episodic Other skin disorders (1 source) Callosity; Translations: [Corns and callosities] 08-30-2015 Episodic Other skin disorders (3 sources) Mass of neck; Translations: [Localized swelling, mass and lump, neck] 12-18-2024 Episodic Other skin disorders (1 source) Localized swelling, mass and lump, neck; Translations: [Neck mass] Onset: 12-18-2024 Episodic Other upper respiratory disease (20 sources) Allergic rhinitis due to animal hair and dander; Translations: [Allergic rhinitis due to animal (cat) (dog) hair and dander] Onset: 07-22-2017 07-22-2017 Chronic Other upper respiratory disease (20 sources) Allergic rhinitis due to house dust mite; Translations: [Other allergic rhinitis] Onset: 07-22-2017 07-22-2017 Chronic Other upper respiratory disease (20 sources) Allergic rhinitis due to pollen; Translations: [Allergic rhinitis due to pollen] Onset: 07-22-2017 07-22-2017 Chronic Other upper respiratory disease (20 sources) Seasonal allergic rhinitis; Translations: [Other allergic rhinitis] Onset: 07-22-2017 07-22-2017 Chronic Macie-; endo-; and myocarditis; cardiomyopathy (except that caused by tuberculosis or sexually transmitted disease) (1 source) Cardiomyopathy in diseases classified elsewhere; Translations: [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)] Onset: 09-01-2021 Chronic Residual codes; unclassified (20 sources) Obstructive sleep apnea syndrome; Translations: [Obstructive sleep apnea (adult) (pediatric)] Onset: 06-19-2020 06-19-2020 Chronic Residual codes; unclassified (1 source) Obstructive sleep apnea (adult) (pediatric); Translations: [KAI (obstructive sleep apnea)] Onset: 07-24-2022 Chronic Residual codes; unclassified (1 source) Insomnia; Translations: [Insomnia, unspecified] Episodic Residual codes; unclassified (2 sources) Confusional state; Translations: [Disorientation, unspecified] 11-22-2023 Episodic Skin and subcutaneous tissue infections (1 source) Cellulitis of skin; Translations: [Cellulitis, unspecified] 12-29-2023 Episodic Spondylosis; intervertebral disc disorders; other back problems (20 sources) Disorder of lumbar disc; Translations: [Other intervertebral disc degeneration, lumbar region] Onset: 02-08-2023 12-02-2022 Chronic Substance-related disorders (20 sources) Nicotine dependence; Translations: [Nicotine dependence, chewing tobacco, with unspecified nicotine-induced disorders] Onset: 09-01-2021 Chronic Unclassified (1 source) Unknown / UNK(Unknown) Onset: 07-22-2017 Unclassified (1 source) Bulging lumbar disc; Translations: [Bulging lumbar disc] Onset: 02-08-2023 Unclassified (1 source) Obesity, Class II, BMI 35-39.9; Translations: [Obesity, Class II, BMI 35-39.9] Onset: 09-01-2021 Viral infection (20 sources) COVID-19; Translations: [Secondary cardiomyopathy, unspecified] Onset: 09-01-2021 Chronic Viral infection (1 source) COVID-19; Translations: [Pneumonia due to other virus not elsewhere classified] 11-22-2020 Episodic Viral infection (1 source) COVID-19; Translations: [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)] Onset: 09-01-2021 Past or Other Problems Problem Classification Problem Date Documented Da te Episodic/Chronic Nausea and vomiting (20 sources) Nausea; Translations: [Nausea] Onset: 08-08-2015 Resolved: 09-21-2018 09-21-2018 Episodic Other gastrointestinal disorders (20 sources) Abdominal bloating; Translations: [Abdominal distension (gaseous)] Onset: 08-08-2015 Resolved: 09-21-2018 09-21-2018 Episodic Other lower respiratory disease (20 sources) Multiple nodules of lung; Translations: [Other nonspecific abnormal finding of lung field] Onset: 07-05-2018 05-29-2020 Episodic Other lower respiratory disease (20 sources) Dyspnea on exertion; Translations: [Other forms of dyspnea] Onset: 09-01-2021 Episodic Other lower respiratory disease (1 source) Shortness of breath; Translations: [SOB (shortness of breath)] Onset: 07-17-2024 Episodic Other upper respiratory infections (4 sources) Acute upper respiratory infection; Translations: [Acute upper respiratory infection, unspecified] Onset: 07-17-2024 Episodic Residual codes; unclassified (20 sources) Family history of cancer of colon; Translations: [Family history of malignant neoplasm of digestive organs] Onset: 09-21-2018 09-21-2018 Episodic Screening and history of mental health and substance abuse codes (20 sources) Ex-smoker; Translations: [Personal history of nicotine dependence] Onset: 09-01-2021 05-19-2024 Episodic Spondylosis; intervertebral disc disorders; other back problems (20 sources) Chronic low back pain; Translations: [Chronic midline low back pain without sciatica] Onset: 03-14-2019 03-14-2019 Episodic Unclassified (1 source) Finding of sensation of abdomen 01-01-2025 Results Test Name Value Interpretation Reference Range Facility CNOV 02-12-2025 CNOV Office Visit ([facility]ARD[facility] ) -- VEGAHOLLIEN Monie ([id number]) 1980 M Date Time Provider Department 02/12/25 9:20 AM RISA CAMPA During your visit today, we recorded the following information about you: Pulse Blood pressure Weight 68/minute 134/87 109.3 kg Risa Campa MD 02/12/2025 9:42 AM [facility] SECTION OF REGIONAL CARDIOLOGY Cardiology ([facility]) [address] [facility] [id number] OUTPATIENT VISIT DATE 02/12/2025 PRIMARY CARE PHYSICIAN: Conor Pantoja [facility] [place] [address] CHIEF COMPLAINT: HISTORY OF PRESENT ILLNESS: Mr. Vega is a 44 year old gentleman with borderline hypertension, dyslipidemia, and ongoing nicotine use (chewing tobacco) who presents for routine follow-up. The patient reports a recent whole-body scan to rule out bone cancer and an ultrasound of the neck due to persistent pain and tightness. He is scheduled to follow up with his clinician regarding these issues. He mentions a sensation of hearing his heartbeat in his ear during physical activity, which he describes as not happening in a while. 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 He does not regularly monitor his blood pressure at home but believes it is generally within normal limits. He denies any known cardiac issues. He has a family history of hypertension in his father and CHF in his grandfather. He is unaware of any family history on his mother's side due to adoption. He has a history of chewing tobacco but has since quit. PAST MEDICAL HISTORY Diagnosis Date Abdominal pain Anxiety Asthma (HCC) Depression VILLEGAS (dyspnea on exertion) HTN (hypertension) Mixed hyperlipidemia Obesity Primary cardiomyopathy (HCC) Sleep apnea Spinal stenosis PAST SURGICAL HISTORY Procedure Laterality Date COLONOSCOPY 06/15/2022 repeat in 1 year with MAC COLONOSCOPY FLX DX W/COLLJ SPEC WHEN PFRMD 08/21/2015 Colonoscopy with mac ESOPHAGOGASTRODUODENOSCOPY TRANSORAL DIAGNOSTIC 08/21/2015 EGD with mac LAMINECTOMY,LUMBAR 06/06/2024 Lumbar level 1 PAST SURGICAL HISTORY OF fatty cyst removed from stomach PAST SURGICAL HISTORY OF wisdom teeth SOCIAL HISTORY Social History Tobacco Use Smoking status: Never Smokeless tobacco: Former Types: Chew Quit date: 12/15/2023 Vaping Use Vaping status: Never Used Substance Use Topics Alcohol use: No Drug use: No FAMILY HISTORY Problem Relation Age of Onset Heart Father Colon Cancer Father other (colitis) Father other (autism) Son GI issues/ear problems/adhd ALLERGIES: ALLERGIES Allergen Reactions Acetaminophen-Codei* Rash Seasonal Allergies Unknown CATS, DOGS, COCKROACHES, MOLDS, TREES, GRASSES, WEEDS AND RAGWEED VERIFIED BY SKIN TESTING Darren [Remyluk* Other: See Comments irritable MEDICATIONS: amLODIPine (NORVASC) 5 mg tablet Take 1 tablet by mouth once daily. omeprazole (PRILOSEC) 40 mg capsule Take 1 capsule by mouth once daily. benzonatate (TESSALON PERLE) 100 mg capsule Take 1 capsule by mouth three times a day as needed. guanFACINE (TENEX) 2 mg tablet mometasone (ELOCON) 0.1 % cream Apply 1 application to affected area once daily. QELBREE 100 mg capsule, extended release Take 400 mg by mouth every morning. Take a total of 500 mg; two 200 mg and one 100 mg melatonin 3 mg tablet TAKE 1 TABLET APPROXIMATELY 7PM NIGHTLY. clotrimazole-betamethasone (LOTRISONE) cream Apply to affected area twice daily. APPLY TO AFFECTED AREA fluticasone-salmeterol HFA (ADVAIR HFA) 115-21 mcg/actuation inhaler Inhale 2 Puffs as instructed twice daily. Rinse mouth after use. albuterol (PROVENTIL) 2.5 mg /3 mL (0.083 %) nebulizer solution Use 3 mL via nebulizer every 4 hours as needed for wheezing/shortness of breath. Use over 5-15minutes. ipratropium-albuterol (DUONEB) 0.5 mg-3 mg(2.5 mg base)/3 mL nebu Inhale 3 mL as instructed every 6 hours as needed (wheezing). albuterol HFA (VENTOLIN HFA) 90 mcg/actuation inhaler INHALE 2 PUFFS BY MOUTH DIRECTED EVERY 4 HOURS NEEDED FOR WHEEZING OR SHORTNESS OF BREATH CPAP Initiate Auto PAP @ 5-20 cm of water with humidification. Mask (per patient preference) optional chin strap (if indicated) , filters, tubing, humidifier and lifetime supplies. fluticasone (FLONASE) 50 mcg/actuation nasal spray Use 2 Sprays in each nostril once daily. cetirizine (ZYRTEC) 10 mg tablet Take 1 tablet by mouth once daily as needed. REVIEW OF SYSTEMS: Review of Systems Constitutional: Negative for chills, fever, malaise/fatigue and weight loss. HENT: Negative for hearing loss and sore throat. Eyes: Negative for blurred vision and double vision. (more content not included)... Normal [facility] BONE WHOLE BODYon 025 [place] BONE WHOLE BODY * * *Final Report* * * DATE OF EXAM: Jan 05 2025 11:20AM [facility] 0014 - [place] BONE WHOLE BODY / PROCEDURE REASON: Elevated alkaline phosphatase level * * * * Physician Interpretation * * * * EXAM: WHOLE BODY BONE SCAN HISTORY: Elevated alkaline phosphatase level TECHNIQUE: 22.4 millicuries of Tc-99m MDP administered IV. Whole body anterior and posterior planar images obtained 3-4 hours. Regional static planar images also obtained. COMPARISON: No prior bone scan available CORRELATION: MRI lumbar spine 05/15/2024 RESULTS: Bones: * No abnormal foci of tracer uptake. * Joint centered, likely degenerative uptake is noted at the lower lumbar spine. Kidneys/Bladder: Physiologic activity present. Other findings: None. IMPRESSION: No evidence of osteoblastic metastases. Degenerative uptake at the lower lumbar spine. Optical Advisor: CARLOS Transcribe Date/Time: Jan 05 2025 11:29A Dictated by : ANNY RUGGIERO MD This examination was interpreted and the report reviewed and electronically signed by: ANNY RUGGIERO MD on Jan 05 2025 11:35AM EST [id number] Normal [facility] Whole body Bone Viewson 0 01-05-2025 IMPRESSION: No evidence of osteoblastic metastases. Degenerative uptake at the lower lumbar spine. Optical Advisor: [facility] Transcribe Date/Time: Jan 05 2025 11:29A Dictated by : ANNY RUGGIERO MD This examination was interpreted and the report reviewed and electronically signed by: ANNY RUGGIERO MD on Jan 05 2025 11:35AM EST DIVISION OF RADIOLOGY * * *Final Report* * * DATE OF EXAM: Jan 05 2025 11:20AM [facility] 0014 - [place] BONE WHOLE BODY / PROCEDURE REASON: Elevated alkaline phosphatase level * * * * Physician Interpretation * * * * EXAM: WHOLE BODY BONE SCAN HISTORY: Elevated alkaline phosphatase level TECHNIQUE: 22.4 millicuries of Tc-99m MDP administered IV. Whole body anterior and posterior planar images obtained 3-4 hours. Regional static planar images also obtained. COMPARISON: No prior bone scan available CORRELATION: MRI lumbar spine 05/15/2024 RESULTS: Bones: * No abnormal foci of tracer uptake. * Joint centered, likely degenerative uptake is noted at the lower lumbar spine. Kidneys/Bladder: Physiologic activity present. Other findings: None. DIVISION OF RADIOLOGY Provider, [facility] - 01/05/2025 * * *Final Report* * * DATE OF EXAM: Jan 05 2025 11:20AM [facility] 0014 - [place] BONE WHOLE BODY / PROCEDURE REASON: Elevated alkaline phosphatase level * * * * Physician Interpretation * * * * EXAM: WHOLE BODY BONE SCAN HISTORY: Elevated alkaline phosphatase level TECHNIQUE: 22.4 millicuries of Tc-99m MDP administered IV. Whole body anterior and posterior planar images obtained 3-4 hours. Regional static planar images also obtained. COMPARISON: No prior bone scan available CORRELATION: MRI lumbar spine 05/15/2024 RESULTS: Bones: * No abnormal foci of tracer uptake. * Joint centered, likely degenerative uptake is noted at the lower lumbar spine. Kidneys/Bladder: Physiologic activity present. Other findings: None. IMPRESSION IMPRESSION: No evidence of osteoblastic metastases. Degenerative uptake at the lower lumbar spine. Optical Advisor: PSC[facility] Transcribe Date/Time: Jan 05 2025 11:29A Dictated by : ANNY RUGGIERO MD This examination was interpreted and the report reviewed and electronically signed by: ANNY RUGGIERO MD on Jan 05 2025 11:35AM EST [facility] Radiology Study observation (narrative) [facility] Whole body Bone ViewsOrde red By: [facility] Provider on 01-05-2025 [facility] CNOVon 01-01-2025 CNOV Office Visit (GENSWS ) -- JAIME VEGA ([id number]) 1980 Date Time Provider Department 01/01/25 3:00 PM ALYSE MAGANA GENADOLFO During your visit today, we recorded the following information about you: Temperature Pulse Respiration Blood pressure 98.1 degrees 73/minute 18/minute 125/78 Weight 109 kg Alyse Magana APRN.CNP 01/01/2025 3:33 PM Signed HISTORY AND PHYSICAL Jaime Vega : 1980 REFERRING PHYSICIAN: Conor Pantoja [address] [facility] [address] CHIEF COMPLAINT: Patient presents with: New Patient: Referral from Dr. Pantoja: GERD, Abdominal pain, change in bowel function HPI: Jaime is a 44 year old male referred for endoscopy. Jaime notes due for screening colonoscopy- hx of polyps (2022), family hx of colon cancer in father. Jaime notes some abdominal burning -watching diet has helped Jaime denies diarrhea. -but notes occasional stool incontinence -feels like he isn't completely evacuating stool since May Jaime notes recent constipation. Jaime denies melena. Jaime notes bright red blood per rectum. Jaime notes possibly external hemorrhoid Jaime notes heartburn. -Takes omeprazole daily with good symptom management -had stopped for awhile and had burning in his chest Jaime denies dysphagia. Jaime denies a history of ulcers/ peptic ulcer disease. Jaime's follows with [facility] cardiology for HTN, HLD, cardiomyopathy s/p COVID. Next appt 02/12/25. He denies CP, SOB, dizziness, palpitations, syncope, edema, recent hospitalizations Other medical history is significant for asthma, KAI c/w CPAP, obesity and back pain. Jaime has undergone prior endoscopy. Last colonoscopy over [address] Dunn at [facility]. Impression: - Preparation of the colon was poor. - One medium polyp in the descending colon, removed with a hot snare. Resected and retrieved. - The examination was otherwise normal on direct and retroflexion views. Pathology: FINAL DIAGNOSIS A. Colon, descending, polypectomy - Tubular adenoma *Recommendation for MAC and 2-day bowel prep and adult scope Current Outpatient Medications Medication Sig amLODIPine (NORVASC) 5 mg tablet Take 1 tablet by mouth once daily. omeprazole (PRILOSEC) 40 mg capsule Take 1 capsule by mouth once daily. benzonatate (TESSALON PERLE) 100 mg capsule Take 1 capsule by mouth three times a day as needed. guanFACINE (TENEX) 2 mg tablet mometasone (ELOCON) 0.1 % cream Apply 1 application to affected area once daily. QELBREE 100 mg capsule, extended release Take 200 mg by mouth every morning. Take a total of 500 mg; two 200 mg and one 100 mg melatonin 3 mg tablet TAKE 1 TABLET APPROXIMATELY 7PM NIGHTLY. clotrimazole-betamethasone (LOTRISONE) cream Apply to affected area twice daily. APPLY TO AFFECTED AREA fluticasone-salmeterol HFA (ADVAIR HFA) 115-21 mcg/actuation inhaler Inhale 2 Puffs as instructed twice daily. Rinse mouth after use. albuterol (PROVENTIL) 2.5 mg /3 mL (0.083 %) nebulizer solution Use 3 mL via nebulizer every 4 hours as needed for wheezing/shortness of breath. Use over 5-15minutes. ipratropium-albuterol (DUONEB) 0.5 mg-3 mg(2.5 mg base)/3 mL nebu Inhale 3 mL as instructed every 6 hours as needed (wheezing). albuterol HFA (VENTOLIN HFA) 90 mcg/actuation inhaler INHALE 2 PUFFS BY MOUTH DIRECTED EVERY 4 HOURS NEEDED FOR WHEEZING OR SHORTNESS OF BREATH CPAP Initiate Auto PAP @ 5-20 cm of water with humidification. Mask (per patient preference) optional chin strap (if indicated) , filters, tubing, humidifier and lifetime supplies. fluticasone (FLONASE) 50 mcg/actuation nasal spray Use 2 Sprays in each nostril once daily. cetirizine (ZYRTEC) 10 mg tablet Take 1 tablet by mouth once daily as needed. No current facility-administered medications for this visit. ALLERGIES: Acetaminophen-Codeine, Seasonal Allergies, and Singulair [Montelukast Sodium] Past Medical History: No date: Abdominal pain No date: Anxiety No date: Asthma (HCC) No date: Depression No date: VILLEGAS (dyspnea on exertion) No date: HTN (hypertension) No date: Mixed hyperlipidemia No date: Obesity No date: Primary cardiomyopathy (HCC) No date: Sleep apnea No date: Spinal stenosis PAST SURGICAL HISTORY Procedure Laterality Date COLONOSCOPY 06/15/2022 repeat in 1 year with MAC COLONOSCOPY FLX DX W/COLLJ SPEC WHEN PFRMD 08/21/2015 Colonoscopy with mac ESOPHAGOGASTRODUODENOSCOPY TRANSORAL DIAGNOSTIC 08/21/2015 EGD with mac LAMINECTOMY,LUMBAR 06/06/2024 Lumbar level 1 PAST SURGICAL HISTORY OF fatty cyst removed from stomach PAST SURGICAL HISTORY OF wisdom teeth Review of patient's family history indicates: Problem: Heart Relation: Father Age of Onset: (Not Specified) Problem: Colon Cancer Relation: Father Age of Onset: (Not Specified) Problem: other (colitis) Relation: Father Age (more content not included)... Normal [facility] Eduardo 12-27-2024 TIFFANYN Telephone (FAMPWS) -- JAIME VEGA ([id number]) 1980 M Date Time Provider Department 12/27/24 CONOR PANTOJA During your visit today, we recorded the following information about you: Conor Pantoja MD 12/27/2024 10:55 AM Signed Bone alk phos is up. Likely can be ok from things like arthritis etc, however, check bone scan to make sure is ok. Carmen Meraz RN 12/27/2024 1:36 PM Signed Called and left a voicemail for the Patient to call back and ask for a nurse to receive the providers message. GABE Yusuf Amanda, RN 01/01/2025 3:43 PM Signed Patient was in General Surgery appointment today asking about message. Informed patient of message below. Patient verbalized understanding. Scheduled 01/05 for bone scan. Allergies As of Date: 12/27/2024 Noted Allergy Reaction ACETAMINOPHEN-CODEINE 11/26/2015 2 - Rash SEASONAL ALLERGIES 01/05/2017 16 - Unknown Comments: CATS, DOGS, COCKROACHES, MOLDS, TREES, GRASSES, WEEDS AND RAGWEED VERIFIED BY SKIN TESTING SINGULAIR (MONTELUKAST SODIUM) 09/21/2018 14 - Other: See Comments Comments: irritable Date Reviewed: 12/18/2024 Reviewed by: Yoselin Rivas - Fully Assessed Reason for Visit: Results [95] Cmt: Alk phos Primary Visit Diagnosis:Elevated alkaline phosphatase level [R74.8] Order(s):NM BONE WHOLE BODY [[id number]] Order #: [id number] FUTURE Prescriptions as of 01/02/2025 - amLODIPine (NORVASC) 5 mg tablet Take 1 tablet by mouth once daily. - omeprazole (PRILOSEC) 40 mg capsule Take 1 capsule by mouth once daily. - benzonatate (TESSALON PERLE) 100 mg capsule Take 1 capsule by mouth three times a day as needed. - guanFACINE (TENEX) 2 mg tablet - mometasone (ELOCON) 0.1 % cream Apply 1 application to affected area once daily. - QELBREE 100 mg capsule, extended release Take 200 mg by mouth every morning. Take a total of 500 mg; two 200 mg and one 100 mg - melatonin 3 mg tablet TAKE 1 TABLET APPROXIMATELY 7PM NIGHTLY. - clotrimazole-betamethasone (LOTRISONE) cream Apply to affected area twice daily. APPLY TO AFFECTED AREA - fluticasone-salmeterol HFA (ADVAIR HFA) 115-21 mcg/actuation inhaler Inhale 2 Puffs as instructed twice daily. Rinse mouth after use. - albuterol (PROVENTIL) 2.5 mg /3 mL (0.083 %) nebulizer solution Use 3 mL via nebulizer every 4 hours as needed for wheezing/shortness of breath. Use over 5-15minutes. - ipratropium-albuterol (DUONEB) 0.5 mg-3 mg(2.5 mg base)/3 mL nebu Inhale 3 mL as instructed every 6 hours as needed (wheezing). - albuterol HFA (VENTOLIN HFA) 90 mcg/actuation inhaler INHALE 2 PUFFS BY MOUTH DIRECTED EVERY 4 HOURS NEEDED FOR WHEEZING OR SHORTNESS OF BREATH - CPAP Initiate Auto PAP @ 5-20 cm of water with humidification. Mask (per patient preference) optional chin strap (if indicated) , filters, tubing, humidifier and lifetime supplies. - fluticasone (FLONASE) 50 mcg/actuation nasal spray Use 2 Sprays in each nostril once daily. - cetirizine (ZYRTEC) 10 mg tablet Take 1 tablet by mouth once daily as needed. Problem List As Of Date 12/27/2024 Noted Resolved Right upper quadrant abdominal pain [R10.11] 08/08/2015 09/21/2018 Nausea [R11.0] 08/08/2015 09/21/2018 Bloating symptom [R14.0] 08/08/2015 09/21/2018 Mild persistent asthma without complication [J4*08/08/2015 Anxiety and depression [F41.9, F32.A] 08/08/2015 Allergic rhinitis due to animal hair and dander*07/22/2017 Allergic rhinitis due to dust mite [J30.89] 07/22/2017 Seasonal allergic rhinitis due to pollen [J30.1]07/22/2017 Seasonal allergic rhinitis due to fungal spores*07/22/2017 Pulmonary nodules [R91.8] 07/05/2018 Family history of colon cancer [Z80.0] 09/21/2018 Chronic midline low back pain without sciatica *03/14/2019 KAI (obstructive sleep apnea) [G47.33] 06/19/2020 Obesity, Class II, BMI 35-39.9 [E66.812] 09/01/2021 VILLEGAS (dyspnea on exertion) [R06.09] 09/01/2021 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) [U07*09/01/2021 Mixed hyperlipidemia [E78.2] 09/01/2021 Former smoker [Z87.891] 09/01/2021 Bulging lumbar disc [M51.369] 02/08/2023 Spinal stenosis of lumbar region without neurog*02/08/2023 Primary hypertension [I10] 12/06/2023 Enlarged thoracic aorta (HCC) [I77.89] 12/29/2023 Lumbar radiculopathy [M54.16] 06/29/2024 Encounter Status:Closed by CONCHITA PAK on 01/02/25 Normal [facility] ALKALINE PHOSPHATASE ISOENZY MES (P)on 12-22-2024 ALK PHOS BONE % 44.9 % Normal 10.7-68.3 [facility] Comment on above: Order Comment: Speci men Type: BLOOD SPECIMENOrdering Facility: [facility] Address: [address] [place] [address] Performed By: #### A LKISOP ####[facility]IA [id number] [place] [address] [place] ALK PHOS LIVER % 43.5 % Normal 26.0-86.2 [facility] Comment on above: Order Comment: Speci men Type: BLOOD SPECIMENOrdering Facility: [facility] Address: [address] [place] [address] Performed By: #### A LKISOP ####[facility]IA [id number] [place] [address] [place] BONE FRACTION 59.3 U/L High 12.9-52.6 [facility] Comment on above: Order Comment: Speci men Type: BLOOD SPECIMENOrdering Facility: [facility] Address: [address] [place] [address] Performed By: #### A LKISOP ####[facility] LABCLIA [id number] [place] [address] [place] INTESTINE FRACTION 15.2 U/L Normal 0.0-16.3 [facility] Comment on above: Order Comment: Speci men Type: BLOOD SPECIMENOrdering Facility: [facility] Address: [address] [place] [address] Performed By: #### A LKISOP ####[facility] LABCLIA [id number] [address] [place] LIVER FRACTION 57.4 U/L Normal 16.0-69.3 [facility] Comment on above: Order Comment: Speci men Type: BLOOD SPECIMENOrdering Facility: [facility] Address: [address] [place] [address] Performed By: #### A LKISOP ####[facility] [id number] [address] STATES OF [facility] Neutrophils/100 WBC (Bld) 11.5 % Normal 0.0-24.2 [facility] Comment on above: Order Comment: Speci men Type: BLOOD SPECIMENOrdering Facility: [facility] Address: [address] [place] [address] Performed By: #### A LKISOP ####[facility] [id number] [place] [id number] [place] ALP SerPl-cCncon 12-22-2024 ALP [Catalytic activity/Vol] 132 U/L High 38-113 [facility] Comment on above: Order Comment: Speci men Type: BLOOD SPECIMENOrdering Facility: [facility] Address: [address] [place] [address] Performed By: #### 6 768-6 ####[facility] [id number] [address] [facility] HEAD/NECK SOFT TISSUE BENITEZ Stormy 12-22-2024 HEAD/NECK SOFT TISSUE OTHER * * *Final Report* * * DATE OF EXAM: Dec 22 2024 2:35PM [facility] 1052 - US HEAD/NECK SOFT TISSUE OTHER / PROCEDURE REASON: Neck mass * * * * Physician Interpretation * * * * SOFT TISSUE ULTRASOUND CLINICAL HISTORY: Palpable abnormality in the LEFT post auricular region Neck mass . TECHNIQUE: Grayscale and color Doppler images. Images were obtained and stored in a permanent archive. Soft tissue ultrasound of the LEFT post auricular region area of concern COMPARISON: None. RESULT: Ultrasound examination of the LEFT postauricular region at the site of palpable abnormality shows a lymph node measuring 1.8 x 0.6 x 1.1 cm. The lymph node has a fatty hilum visible and has a thin cortex. - IMPRESSION: Borderline prominent, morphologically normal lymph node at the area of clinical concern could be a reactive lymph node. If the palpable abnormality clinically increases in size then repeat ultrasound could be obtained for reassessment. Optical Advisor: CARLOS Transcribe Date/Time: Dec 25 2024 8:27P Dictated by : PATRICIA BEE MD This examination was interpreted and the report reviewed and electronically signed by: PATRICIA BEE MD on Dec 25 2024 8:27PM EST [id number] Normal [facility] CBC W Auto Differential pane l (Bld)on 12-18-2024 Basophils (Bld) [#/Vol] 0.06 10*3/uL [facility] Basophils/100 WBC (Bld) 0.6 % [facility] Differential cell count method Nom (Bld) Auto [facility] Eosinophils (Bld) [#/Vol] 0.2 10*3/uL [facility] Eosinophils/100 WBC (Bld) 2.2 % [facility] Erythrocyte distribution width (RBC) [Ratio] 13.6 % 11.5 - 15.0 % [facility] Hematocrit (Bld) [Volume fraction] 45.5 % 39.0 - 51.0 % [facility] Hemoglobin (Bld) [Mass/Vol] 15.3 g/dL 13.0 - 17.0 g/dL [facility] Immature granulocytes (Bld) [#/Vol] 0.03 10*3/uL [facility] Immature granulocytes/100 WBC (Bld) 0.3 % [facility] Interpretation and review of laboratory results Abnormal [facility] Lymphocytes (Bld) [#/Vol] 3 10*3/uL [facility] Lymphocytes/100 WBC (Bld) 32.3 % [facility] MCH (RBC) [Entitic mass] 30.1 pg 26.0 - 34.0 pg [facility] MCHC (RBC) [Mass/Vol] 33.6 g/dL 30.5 - 36.0 g/dL [facility] MCV (RBC) [Entitic vol] 89.4 fL 80.0 - 100.0 fL [facility] Monocytes (Bld) [#/Vol] 0.89 10*3/uL High [facility] Monocytes/100 WBC (Bld) 9.6 % [facility] Neutrophils (Bld) [#/Vol] 5.11 10*3/uL [facility] Neutrophils/100 WBC (Bld) 55 % [facility] Nucleated RBC (Bld) [#/Vol] [facility] Nucleated RBC/100 WBC (Bld) [Ratio] 0 % /100 WBC [facility] Platelet mean volume (Bld) [Entitic vol] 11.4 fL 9.0 - 12.7 fL [facility] Platelets (Bld) [#/Vol] 289 10*3/uL [facility] RBC (Bld) [#/Vol] 5.09 10*6/uL 4.20 - 6.0 0 m/uL [facility] WBC (Bld) [#/Vol] 9.29 10*3/uL [facility] Basophils (Bld) [#/Vol] 0.06 10*3/uL Normal <0.11 [facility] Comment on above: Order Comment: Speci men Type: BLOOD SPECIMENOrdering Facility: [facility] Address: [address] [place] [address] Performed By: #### 5 7021-8 ####[facility] LABCL[facility] [id number] [address] [place] Basophils/100 WBC (Bld) 0.6 % Normal [facility] Comment on above: Order Comment: Speci men Type: BLOOD SPECIMENOrdering Facility: [facility] Address: [address] [place] [address] Performed By: #### 5 7021-8 ####[facility] LABCLIA [id number] [place] [address] [place] Differential cell count method Nom (Bld) Auto Normal [facility] Comment on above: Order Comment: Speci men Type: BLOOD SPECIMENOrdering Facility: [facility] Address: [address] [place] [address] Performed By: #### 5 7021-8 ####[facility] LABCLIA [id number] [place] [address] [place] Eosinophils (Bld) [#/Vol] 0.20 10*3/uL Normal <0.46 [facility] Comment on above: Order Comment: Speci men Type: BLOOD SPECIMENOrdering Facility: [facility] Address: [address] [place] [address] Performed By: #### 5 7021-8 ####[facility] LABCL[facility] [id number] [place] [address] [place] Eosinophils/100 WBC (Bld) 2.2 % Normal [facility] Comment on above: Order Comment: Speci men Type: BLOOD SPECIMENOrdering Facility: [facility] Address: [address] [place] [address] Performed By: #### 5 7021-8 ####[facility] LABCLIA [id number] [place] [address] [place] Erythrocyte distribution width (RBC) [Ratio] 13.6 % Normal 11.5-15.0 [facility] Comment on above: Order Comment: Speci men Type: BLOOD SPECIMENOrdering Facility: [facility] Address: [address] [place] [address] Performed By: #### 5 7021-8 ####[facility] LABCL[facility] [id number] [place] [address] [place] Hematocrit (Bld) [Volume fraction] 45.5 % Normal 39.0-51.0 [facility] Comment on above: Order Comment: Speci men Type: BLOOD SPECIMENOrdering Facility: [facility] Address: [address] [place] [address] Performed By: #### 5 7021-8 ####[facility] LABCLIA [id number] [place] [address] [place] Hemoglobin (Bld) [Mass/Vol] 15.3 g/dL Normal 13.0-17.0 [facility] Comment on above: Order Comment: Speci men Type: BLOOD SPECIMENOrdering Facility: [facility] Address: [address] [place] [address] Performed By: #### 5 7021-8 ####[facility] [id number] [place] [address] [place] Immature granulocytes (Bld) [#/Vol] 0.03 10*3/uL Normal <0.10 [facility] Comment on above: Order Comment: Speci men Type: BLOOD SPECIMENOrdering Facility: [facility] Address: [address] [place] [address] Performed By: #### 5 7021-8 ####[facility] [id number] [place] [address] [place] Immature granulocytes/100 WBC (Bld) 0.3 % Normal [facility] Comment on above: Order Comment: Speci men Type: BLOOD SPECIMENOrdering Facility: [facility] Address: [address] [place] [address] Performed By: #### 5 7021-8 ####[facility] LABCLIA [id number] [place] [address] [place] Lymphocytes (Bld) [#/Vol] 3.00 10*3/uL Normal 1.00-4.00 [facility] Comment on above: Order Comment: Speci men Type: BLOOD SPECIMENOrdering Facility: [facility] Address: [address] [place] [address] Performed By: #### 5 7021-8 ####[facility] [id number] [place] [address] [place] Lymphocytes/100 WBC (Bld) 32.3 % Normal [facility] Comment on above: Order Comment: Speci men Type: BLOOD SPECIMENOrdering Facility: [facility] Address: [address] [place] [address] Performed By: #### 5 7021-8 ####[facility] [id number] [place] [address] [place] MCH (RBC) [Entitic mass] 30.1 pg Normal 26.0-34.0 [facility] Comment on above: Order Comment: Speci men Type: BLOOD SPECIMENOrdering Facility: [facility] Address: [address] [place] [address] Performed By: #### 5 7021-8 ####[facility] [id number] [place] [address] [place] MCHC (RBC) [Mass/Vol] 33.6 g/dL Normal 30.5-36.0 [facility] Comment on above: Order Comment: Speci men Type: BLOOD SPECIMENOrdering Facility: [facility] Address: [address] [place] [address] Performed By: #### 5 7021-8 ####[facility] [id number] [place] [address] [place] MCV (RBC) [Entitic vol] 89.4 fL Normal 80.0-100.0 [facility] Comment on above: Order Comment: Speci men Type: BLOOD SPECIMENOrdering Facility: [facility] Address: [address] [place] [address] Performed By: #### 5 7021-8 ####[facility] LABCLIA [id number] [facility] [id number] [address] [place] Monocytes (Bld) [#/Vol] 0.89 10*3/uL High <0.87 [facility] Comment on above: Order Comment: Speci men Type: BLOOD SPECIMENOrdering Facility: [facility] Address: [address] [place] [address] Performed By: #### 5 7021-8 ####[facility] LABCLIA [id number] [facility] [address], [place] [address] [place] Monocytes/100 WBC (Bld) 9.6 % Normal [facility] Comment on above: Order Comment: Speci men Type: BLOOD SPECIMENOrdering Facility: [facility] Address: [address] [place] [address] Performed By: #### 5 7021-8 ####[facility] LABCLIA [id number] [facility] [address], [place] [address] [place] Neutrophils (Bld) [#/Vol] 5.11 10*3/uL Normal 1.45-7.50 [facility] Comment on above: Order Comment: Speci men Type: BLOOD SPECIMENOrdering Facility: [facility] Address: [address] [place] [address] Performed By: #### 5 7021-8 ####[facility] LABCLIA [id number] [facility] [address], [place] [address] [place] Neutrophils/100 WBC (Bld) 55.0 % Normal [facility] Comment on above: Order Comment: Speci men Type: BLOOD SPECIMENOrdering Facility: [facility] Address: [address] [place] [address] Performed By: #### 5 7021-8 ####[facility] LABCLIA [id number] [facility] [address], [facility] [place] Nucleated RBC (Bld) [#/Vol] 10*3/uL Normal <0.01 [facility] Comment on above: Order Comment: Speci men Type: BLOOD SPECIMENOrdering Facility: [facility] Address: [address] [place] [address] Performed By: #### 5 7021-8 ####[facility] LABCLIA [id number] [address] [address] [place] Nucleated RBC/100 WBC (Bld) [Ratio] 0.0 /100 WBC Normal [facility] Comment on above: Order Comment: Speci men Type: BLOOD SPECIMENOrdering Facility: [facility] Address: [address] [place] [address] Performed By: #### 5 7021-8 ####[facility]CL[facility] [id number] [address] [address] [place] Platelet mean volume (Bld) [Entitic vol] 11.4 fL Normal 9.0-12.7 [facility] Comment on above: Order Comment: Speci men Type: BLOOD SPECIMENOrdering Facility: [facility] Address: [address] [place] [address] Performed By: #### 5 7021-8 ####[facility] [id number] [place] [address] [place] Platelets (Bld) [#/Vol] 289 10*3/uL Normal 150-400 [facility] Comment on above: Order Comment: Speci men Type: BLOOD SPECIMENOrdering Facility: [facility] Address: [address] [place] [address] Performed By: #### 5 7021-8 ####[facility] LABCLIA [id number] [place] [id number] [place] RBC (Bld) [#/Vol] 5.09 10*6/uL Normal 4.20-6.00 [facility] Comment on above: Order Comment: Speci men Type: BLOOD SPECIMENOrdering Facility: [facility] Address: [address] [place] [address] Performed By: #### 5 7021-8 ####[facility] LABCLIA [id number] [place] [id number] [place] WBC (Bld) [#/Vol] 9.29 10*3/uL Normal 3.70-11.00 [facility] Comment on above: Order Comment: Speci men Type: BLOOD SPECIMENOrdering Facility: [facility] Address: [address] [place] [id number] Performed By: #### 5 7021-8 ####[facility] LABCLIA [id number] [place] [id number] [place] CNOVon 12-18-2024 CNOV Office Visit (FAMPWS ) -- JAIME VEGA ([id number]) 1980 M Date Time Provider Department 12/18/24 3:20 PM [facility] During [facility] today, we recorded the following information about you: Temperature Pulse Blood pressure Weight 97.9 degrees 81/minute 118/80 110.8 kg Conor Pantoja MD 12/18/2024 3:54 PM Signed Jaime Monie Vega is a 44-year-old male presenting for evaluation of abdominal discomfort, bowel irregularities, and a palpable neck mass. HPI Abdominal Discomfort and Bowel Irregularities: - Abdominal discomfort described as inflamed and hot from epigastric to pelvic region. - Bowel irregularities with incomplete evacuation and urgency to defecate shortly after initial bowel movement. - Occasional stool leakage without active defecation effort. - Hematochezia noted; denies melena. - Occasional nausea and sour belching; denies emesis. - Inconsistent use of omeprazole. - Denies fever, chills, or weight loss. - Jaime is overdue for colonoscopy; has not completed recommended blood work. Neck Mass: - Palpable fullness under the left jaw, approximately 2 cm in diameter. - Mass has been present for a few months, with intermittent visibility and sensation. - No associated pain or changes in size or shape. - Denies other lumps or bumps in the axillary region. Post-Operative Status: - Jaime underwent back surgery in May. - Discontinued prescribed medication in mid-June due to improvement in pain. - Has not taken pain medication since surgery. MEDICATIONS: Current Outpatient Medications Medication Sig amLODIPine (NORVASC) 5 mg tablet Take 1 tablet by mouth once daily. omeprazole (PRILOSEC) 40 mg capsule Take 1 capsule by mouth once daily. (Patient taking differently: Take 40 mg by mouth once daily. States needs it but does not take every day) benzonatate (TESSALON PERLE) 100 mg capsule Take 1 capsule by mouth three times a day as needed. mupirocin (BACTROBAN) 2% oint Use 0.5 g in the nose two times a day. guanFACINE (TENEX) 2 mg tablet mometasone (ELOCON) 0.1 % cream Apply 1 application to affected area once daily. QELBREE 100 mg capsule, extended release Take 200 mg by mouth every morning. Take a total of 500 mg; two 200 mg and one 100 mg clotrimazole-betamethasone (LOTRISONE) cream Apply to affected area twice daily. APPLY TO AFFECTED AREA albuterol (PROVENTIL) 2.5 mg /3 mL (0.083 %) nebulizer solution Use 3 mL via nebulizer every 4 hours as needed for wheezing/shortness of breath. Use over 5-15minutes. albuterol HFA (VENTOLIN HFA) 90 mcg/actuation inhaler INHALE 2 PUFFS BY MOUTH DIRECTED EVERY 4 HOURS NEEDED FOR WHEEZING OR SHORTNESS OF BREATH CPAP Initiate Auto PAP @ 5-20 cm of water with humidification. Mask (per patient preference) optional chin strap (if indicated) , filters, tubing, humidifier and lifetime supplies. cetirizine (ZYRTEC) 10 mg tablet Take 1 tablet by mouth once daily as needed. methocarbamol (ROBAXIN) 750 mg tablet Take 1 tablet by mouth three times a day as needed. (Patient not taking: Reported on 12/18/2024) docusate sodium (COLACE) 100 mg capsule Take 1 capsule by mouth two times a day. (Patient not taking: Reported on 12/18/2024) ciprofloxacin-dexAMETHason e (CIPRODEX) 0.3-0.1 % otic suspension Use 4 Drops in both ears two times a day. (Patient not taking: Reported on 12/18/2024) Koacpzao-Ghbtkp-CN-Thonzon ium (CORTISPORIN-TC) otic suspension Use 3 Drops in the ears four times daily. (Patient not taking: Reported on 12/18/2024) ibuprofen (MOTRIN) 600 mg tablet Take 600 mg by mouth once daily as needed for pain (pain). Takes 600-800mg dose (Patient not taking: Reported on 12/18/2024) acetaminophen (TYLENOL) 500 mg tablet Take 1,000 mg by mouth as needed for pain. (Patient not taking: Reported on 12/18/2024) melatonin 3 mg tablet TAKE 1 TABLET APPROXIMATELY 7PM NIGHTLY. fluticasone-salmeterol HFA (ADVAIR HFA) 115-21 mcg/actuation inhaler Inhale 2 Puffs as instructed twice daily. Rinse mouth after use. ipratropium-albuterol (DUONEB) 0.5 mg-3 mg(2.5 mg base)/3 mL nebu Inhale 3 mL as instructed every 6 hours as needed (wheezing). fluticasone (FLONASE) 50 mcg/actuation nasal spray Use 2 Sprays in each nostril once daily. No current facility-administered medications for this visit. ALLERGIES: ALLERGIES Allergen Reactions Acetaminophen-Codei* Rash Seasonal Allergies Unknown CATS, DOGS, COCKROACHES, MOLDS, TREES, GRASSES, WEEDS AND RAGWEED VERIFIED BY SKIN TESTING Singulair [[place]* Other: See Comments irritable PAST MEDICAL HISTORY Diagnosis Date Abdominal pain Anxiety Asthma Depression VILLEGAS (dyspnea on exertion) HTN (hypertension) Mixed hyperlipidemia Obesity Primary cardiomyopathy (HCC) Sleep apnea Spinal stenosis PAST SURGICAL HISTORY Procedure Laterality Date COLONOSCOPY 06/15/2022 repeat in (more content not included)... Normal [facility] Comprehensive metabolic 2000 panelon 12-18-2024 Albumin [Mass/Vol] 4.7 g/dL Normal 3.9-4.9 [facility] Comment on above: Order Comment: Speci men Type: BLOOD SPECIMENOrdering Facility: [facility] Address: [address] [place] [address] Performed By: #### L IPNF, 90793-2, 3039-3 ####[facility] LABCL[facility] [id number] [place] [id number] [place] ALP [Catalytic activity/Vol] 136 U/L High 38-113 [facility] Comment on above: Order Comment: Speci men Type: BLOOD SPECIMENOrdering Facility: [facility] Address: [address] [place] [address] Performed By: #### L IPNF, 35626-6, 0-3 ####[facility]CL[facility] [id number] [place] [address] [place] ALT [Catalytic activity/Vol] 30 U/L Normal 10-54 [facility] Comment on above: Order Comment: Speci men Type: BLOOD SPECIMENOrdering Facility: [facility] Address: [address] [place] [address] Performed By: #### L IPNF, , 3039-3 ####[facility] LABCLIA [id number] [place] [address] [place] Anion gap [Moles/Vol] 14 mmol/L Normal 8-15 [facility] Comment on above: Order Comment: Speci men Type: BLOOD SPECIMENOrdering Facility: [facility] Address: [address] [place] [address] Performed By: #### L IPNF, 39395-6, 0-3 ####[facility]CL[facility] [id number] [place] [id number] [place] AST [Catalytic activity/Vol] 20 U/L Normal 14-40 [facility] Comment on above: Order Comment: Speci men Type: BLOOD SPECIMENOrdering Facility: [facility] Address: [address] [place] [address] Performed By: #### L IPNF, , 3039-3 ####[facility] LABCL[facility] [id number] [place] [address] [place] Bilirubin [Mass/Vol] 0.2 mg/dL Normal 0.2-1.[address] [facility] Comment on above: Order Comment: Speci men Type: BLOOD SPECIMENOrdering Facility: [facility] Address: [address] [place] [address] Performed By: #### L IPNF, , 3039-3 ####[facility]CL[facility] [id number] [place] [address] [place] Calcium [Mass/Vol] 9.9 mg/dL Normal 8.5-10.2 [facility] Comment on above: Order Comment: Speci men Type: BLOOD SPECIMENOrdering Facility: [facility] Address: [address] [place] [address] Performed By: #### L IPNF, , 3039-3 ####[facility] LABCLIA [id number] [place] [address] [place] Chloride [Moles/Vol] 104 mmol/L Normal 98-[address] [facility] Comment on above: Order Comment: Speci men Type: BLOOD SPECIMENOrdering Facility: [facility] Address: [address] [place] [address] Performed By: #### L IPNF, , 3 ####[facility] LABCLIA [id number] [address] [address] [place] CO2 [Moles/Vol] 22 mmol/L Normal 22-30 [facility] Comment on above: Order Comment: Speci men Type: BLOOD SPECIMENOrdering Facility: [facility] Address: [address] [place] [address] Performed By: #### L IPNF, , 3039-3 ####[facility] LABCLIA [id number] [address] [address] [place] Creatinine [Mass/Vol] 1.02 mg/dL Normal 0.73-1.22 [facility] Comment on above: Order Comment: Kaylene katz Type: BLOOD SPECIMENOrdering Facility: [facility] Address: [address] [place] [address] Performed By: #### L IPNF, 39826-4, 0-3 ####[facility] LABIA [id number] [address] [address] [place] eGFRcr SerPlBld CKD-EPI 2020 93 mL/min/1.73m??? Normal >=60 [facility] Comment on above: Order Comment: Kaylene katz Type: BLOOD SPECIMENOrdering Facility: [facility] Address: [address] [place] [address] Result Comment: Silvia mated Glomerular Filtration Rate (eGFR) is calculated using the 2020 CKD-EPI creatinine equation. This equation utilizes serum creatinine, sex, and age as parameters. The creatinine assay has traceable calibration to isotope dilution-mass spectrometry. Refer to KDIGO guidelines for clinical interpretation. In patients with unstable renal function, e.g. those with acute kidney injury, the eGFR may not accurately reflect actual GFR. Performed By: #### L IPMARLENE, 14741-6, 3039-3 ####[facility] LABIA [id number] [address] [address] [place] Glucose [Mass/Vol] 111 mg/dL High 74-99 [facility] Comment on above: Order Comment: Kaylene katz Type: BLOOD SPECIMENOrdering Facility: [facility] Address: [address] [place] [address] Result Comment: The [place] Diabetes Association (ADA) provides guidance for cutoff values for fasting glucose and random glucose. The ADA defines fasting as no caloric intake for at least 8 hours. Fasting plasma glucose results between 100 to 125 mg/dL indicate increased risk for diabetes (prediabetes). Fasting plasma glucose results greater than or equal to 126 mg/dL meet the criteria for diagnosis of diabetes. In the absence of unequivocal hyperglycemia, results should be confirmed by repeat testing. In a patient with classic symptoms of hyperglycemia or hyperglycemic crisis, random plasma glucose results greater than or equal to 200 mg/dL meet the criteria for diagnosis of diabetes. Reference: Standards of Medical Care in Diabetes 2016, [place] [employer]. Diabetes Care. 2016.39(Suppl 1). Performed By: #### L IPNF, 64356-7, 0-3 ####[facility] LABCLIA [id number] [address] [address] [place] Potassium [Moles/Vol] 4.1 mmol/L Normal 3.7-5.1 [facility] Comment on above: Order Comment: Speci men Type: BLOOD SPECIMENOrdering Facility: [facility] Address: [address] [place] [address] Performed By: #### L IPNF, , 3039-3 ####[facility] LABCLIA [id number] [place] [id number] [place] Protein [Mass/Vol] 7.4 g/dL Normal 6.3-8.0 [facility] Comment on above: Order Comment: Speci men Type: BLOOD SPECIMENOrdering Facility: [facility] Address: [address] [place] [address] Performed By: #### L IPNF, , 3039-3 ####[facility] LABCLIA [id number] [place] [id number] [place] Sodium [Moles/Vol] 140 mmol/L Normal 136-144 [facility] Comment on above: Order Comment: Speci men Type: BLOOD SPECIMENOrdering Facility: [facility] Address: [address] [place] [address] Performed By: #### L IPNF, , 0-3 ####[facility] LABCLIA [id number] [address] [address] [place] Urea nitrogen [Mass/Vol] 18 mg/dL Normal 9-24 [facility] Comment on above: Order Comment: Speci men Type: BLOOD SPECIMENOrdering Facility: [facility] Address: [address] [place] [address] Performed By: #### L IPNF, 10975-9, 0-3 ####[facility] LABCLIA [id number] [address] [address] [place] LIPID PANEL, NONFASTINGon Cholesterol [Mass/Vol] 210 mg/dL High <200 [facility] Comment on above: Order Comment: Speci men Type: BLOOD SPECIMENOrdering Facility: [facility] Address: [address] [place] [address] Result Comment: <200 mg/dL, Desirable 200-239 mg/dL, Borderline high >239 mg/dL, High Performed By: #### L IPNF, , 3039-3 ####[facility] LABCLIA [id number] [place] [address] [place] HDL CHOLESTEROL, NF 34 mg/dL Low >39 [facility] Comment on above: Order Comment: Speci men Type: BLOOD SPECIMENOrdering Facility: [facility] Address: [address] [place] [address] Result Comment: 40-5 9 mg/dL, Acceptable >59 mg/dL, High: Negative risk factor for coronary heart disease <40 mg/dL, Low: Positive risk factor for coronary heart disease Performed By: #### L IPNF, 11656-6, 0-3 ####[facility] LABCLIA [id number] [place] [id number] [place] LDL CHOLESTEROL CALCULATED, NF 138 mg/dL High <100 [facility] Comment on above: Order Comment: Speci men Type: BLOOD SPECIMENOrdering Facility: [facility] Address: [address] [place] [address] Result Comment: <100 mg/dL, Optimal 100-129 mg/dL, Near optimal/above optimal 130-159 mg/dL, Borderline high 160-189 mg/dL, High >189 mg/dL, Very high Secondary prevention optimal LDL Cholesterol levels are recommended to be <70 mg/dL LDL cholesterol is calculated using the Thomason-NIH equation. Performed By: #### L JOSE M, 88002-8, 3039-3 ####[facility] LABCLIA [id number] [address] [place] LDL/HDL RATIO, NF 4.06 mg/dL High <2.54 [facility] Comment on above: Order Comment: Speci men Type: BLOOD SPECIMENOrdering Facility: [facility] Address: [address] [place] [address] Result Comment: Yuniel whalen: 1. National Cholesterol Education Program ATP III Guideline At-A-Glance Quick Desk Reference: National Heart, Lung, and Blood Dunbar. National Institutes of Health. 2001: NIH Publication No. 01-3305. 2. An International Atherosclerosis Society position paper: global recommendations for the management of dyslipidemia: executive summary, Atherosclerosis. 2014: 232(2):410-413. Performed By: #### L JOSE M, , 3 ####[facility] LABCLIA [id number] [address] [place] NON HDL CHOL, NF 176 mg/dL High <130 [facility] Comment on above: Order Comment: Kaylene men Type: BLOOD SPECIMENOrdering Facility: [facility] Address: [address] [place] [address] Result Comment: <130 mg/dL, Optimal 130-159 mg/dL, Near optimal/above optimal 160-189 mg/dL, Borderline high 190-219 mg/dL, High >219 mg/dL, Very high Secondary prevention optimal non HDL Cholesterol levels are recommended to be <100 mg/dL Performed By: #### L JOSE M, 40639-5, 3 ####[facility] LABCLIA [id number] [address] [place] T CHOL/HDL RATIO NF 6.18 mg/dL High <5.10 [facility] Comment on above: Order Comment: Speci men Type: BLOOD SPECIMENOrdering Facility: [facility] Address: [address] [place] [address] Performed By: #### L IPNF, 19093-8, 0-3 ####[facility] LABCLIA [id number] [place] [id number] [place] TRIGLYCERIDES, NF 208 mg/dL High <150 [facility] Comment on above: Order Comment: Speci men Type: BLOOD SPECIMENOrdering Facility: [facility] Address: [address] [place] [address] Result Comment: <150 mg/dL, Normal 150-199 mg/dL, Borderline high 200-499 mg/dL, High >499 mg/dL, Very high Performed By: #### L JOSE M, , 3039-3 ####[facility] LABCLIA [id number] [place] [address] [place] VLDL CHOLESTEROL, NF 38 mg/dL High <[address] [facility] Comment on above: Order Comment: Speci men Type: BLOOD SPECIMENOrdering Facility: [facility] Address: [address] [place] [address] Performed By: #### L IPMARLENE, , 3039-3 ####[facility] LABCLIA [id number] [place] [id number] [place] Lipase SerPl-cCncon 12-19-19 25 Lipase [Catalytic activity/Vol] 32 U/L Normal 16-61 [facility] Comment on above: Order Comment: Speci men Type: BLOOD SPECIMENOrdering Facility: [facility] Address: [address] [place] [address] Performed By: #### L IPNF, , 0-3 ####[facility] LABCLIA [id number] [address] [address] [place] CNPTamara 07-18-2024 CNPN Telephone (NSFRVW) -- GARYHOLLIEN Monie ([id number]) 1980 M Date Time Provider Department 07/18/24 [facility] During your visit today, we recorded the following information about you: Allergies As of Date: 07/18/2024 Noted Allergy Reaction ACETAMINOPHEN-CODEINE 11/26/2015 2 - Rash SEASONAL ALLERGIES 01/05/2017 16 - Unknown Comments: CATS, DOGS, COCKROACHES, MOLDS, TREES, GRASSES, WEEDS AND RAGWEED VERIFIED BY SKIN TESTING SINGULAIR (MONTELUKAST SODIUM) 09/21/2018 14 - Other: See Comments Comments: irritable Date Reviewed: 07/17/2024 Reviewed by: Smiley Parks MA - Fully Assessed Prescriptions as of 07/18/2024 - benzonatate (TESSALON PERLE) 100 mg capsule Take 1 capsule by mouth three times a day as needed. - mupirocin (BACTROBAN) 2% oint Use 0.5 g in the nose two times a day. - methocarbamol (ROBAXIN) 750 mg tablet Take 1 tablet by mouth three times a day as needed. - docusate sodium (COLACE) 100 mg capsule Take 1 capsule by mouth two times a day. - guanFACINE (TENEX) 2 mg tablet - omeprazole (PRILOSEC) 40 mg capsule Take 1 capsule by mouth once daily. - mometasone (ELOCON) 0.1 % cream Apply 1 application to affected area once daily. - amLODIPine (NORVASC) 5 mg tablet Take 1 tablet by mouth once daily. - ciprofloxacin-dexAMETHason e (CIPRODEX) 0.3-0.1 % otic suspension Use 4 Drops in both ears two times a day. - Aviaxxvo-Slxotz-CW-Thonzon ium (CORTISPORIN-TC) otic suspension Use 3 Drops in the ears four times daily. - ibuprofen (MOTRIN) 600 mg tablet Take 600 mg by mouth once daily as needed for pain (pain). Takes 600-800mg dose - acetaminophen (TYLENOL) 500 mg tablet Take 1,000 mg by mouth as needed for pain. - QELBREE 100 mg capsule, extended release Take 200 mg by mouth every morning. Take a total of 500 mg; two 200 mg and one 100 mg - melatonin 3 mg tablet TAKE 1 TABLET APPROXIMATELY 7PM NIGHTLY. - clotrimazole-betamethasone (LOTRISONE) cream Apply to affected area twice daily. APPLY TO AFFECTED AREA - fluticasone-salmeterol HFA (ADVAIR HFA) 115-21 mcg/actuation inhaler Inhale 2 Puffs as instructed twice daily. Rinse mouth after use. - albuterol (PROVENTIL) 2.5 mg /3 mL (0.083 %) nebulizer solution Use 3 mL via nebulizer every 4 hours as needed for wheezing/shortness of breath. Use over 5-15minutes. - ipratropium-albuterol (DUONEB) 0.5 mg-3 mg(2.5 mg base)/3 mL nebu Inhale 3 mL as instructed every 6 hours as needed (wheezing). - albuterol HFA (VENTOLIN HFA) 90 mcg/actuation inhaler INHALE 2 PUFFS BY MOUTH DIRECTED EVERY 4 HOURS NEEDED FOR WHEEZING OR SHORTNESS OF BREATH - CPAP Initiate Auto PAP @ 5-20 cm of water with humidification. Mask (per patient preference) optional chin strap (if indicated) , filters, tubing, humidifier and lifetime supplies. - fluticasone (FLONASE) 50 mcg/actuation nasal spray Use 2 Sprays in each nostril once daily. - cetirizine (ZYRTEC) 10 mg tablet Take 1 tablet by mouth once daily as needed. Problem List As Of Date 07/18/2024 Noted Resolved Right upper quadrant abdominal pain [R10.11] 08/08/2015 09/21/2018 Nausea [R11.0] 08/08/2015 09/21/2018 Bloating symptom [R14.0] 08/08/2015 09/21/2018 Mild persistent asthma without complication [J4*08/08/2015 Anxiety and depression [F41.9, F32.A] 08/08/2015 Allergic rhinitis due to animal hair and dander*07/22/2017 Allergic rhinitis due to dust mite [J30.89] 07/22/2017 Seasonal allergic rhinitis due to pollen [J30.1]07/22/2017 Seasonal allergic rhinitis due to fungal spores*07/22/2017 Pulmonary nodules [R91.8] 07/05/2018 Family history of colon cancer [Z80.0] 09/21/2018 Chronic midline low back pain without sciatica *03/14/2019 KAI (obstructive sleep apnea) [G47.33] 06/19/2020 Obesity, Class II, BMI 35-39.9 [E66.812] 09/01/2021 VILLEGAS (dyspnea on exertion) [R06.09] 09/01/2021 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) [U07*09/01/2021 Mixed hyperlipidemia [E78.2] 09/01/2021 Former smoker [Z87.891] 09/01/2021 Bulging lumbar disc [M51.369] 02/08/2023 Spinal stenosis of lumbar region without neurog*02/08/2023 Primary hypertension [I10] 12/06/2023 Enlarged thoracic aorta (HCC) [I77.89] 12/29/2023 Lumbar radiculopathy [M54.16] 06/29/2024 Letter Text Encounter Status:Closed by GENNA JALLOH on 07/18/24 [facility] CNPN Telephone (FAMPWS) -- JAIME VEGA ([id number]) 1980 M Date Time Provider Department [facility] your visit today, we recorded the following information about you: Conor Pantoja MD 07/18/2024 10:52 AM Signed He has covid. He is still in the five day window where we can use an antiviral. He would have to hold his guanfacine however for a week while on med. Let me know if wants to try. Call if worsens at all or becomes more short of breath. Carmen Meraz RN 07/18/2024 10:59 AM Signed Called and left a voicemail for the Patient to call back and ask for a nurse to receive the providers message. Carmen Meraz RN Annetta ClaireHEATHER 07/21/2024 11:53 AM Signed Left additional message for patient advised him to call if he isn't getting better. Allergies As of Date: 07/18/2024 Noted Allergy Reaction ACETAMINOPHEN-CODEINE 11/26/2015 2 - Rash SEASONAL ALLERGIES 01/05/2017 16 - Unknown Comments: CATS, DOGS, COCKROACHES, MOLDS, TREES, GRASSES, WEEDS AND RAGWEED VERIFIED BY SKIN TESTING SINGULAIR (MONTELUKAST SODIUM) 09/21/2018 14 - Other: See Comments Comments: irritable Date Reviewed: 07/17/2024 Reviewed by: Smiley Parks MA - Fully Assessed Reason for Visit: Results [95] Cmt: COVID Prescriptions as of 07/21/2024 - benzonatate (TESSALON PERLE) 100 mg capsule Take 1 capsule by mouth three times a day as needed. - mupirocin (BACTROBAN) 2% oint Use 0.5 g in the nose two times a day. - methocarbamol (ROBAXIN) 750 mg tablet Take 1 tablet by mouth three times a day as needed. - docusate sodium (COLACE) 100 mg capsule Take 1 capsule by mouth two times a day. - guanFACINE (TENEX) 2 mg tablet - omeprazole (PRILOSEC) 40 mg capsule Take 1 capsule by mouth once daily. - mometasone (ELOCON) 0.1 % cream Apply 1 application to affected area once daily. - amLODIPine (NORVASC) 5 mg tablet Take 1 tablet by mouth once daily. - ciprofloxacin-dexAMETHason e (CIPRODEX) 0.3-0.1 % otic suspension Use 4 Drops in both ears two times a day. - Ducmosfv-Uvtvfj-LB-Thonzon ium (CORTISPORIN-TC) otic suspension Use 3 Drops in the ears four times daily. - ibuprofen (MOTRIN) 600 mg tablet Take 600 mg by mouth once daily as needed for pain (pain). Takes 600-800mg dose - acetaminophen (TYLENOL) 500 mg tablet Take 1,000 mg by mouth as needed for pain. - QELBREE 100 mg capsule, extended release Take 200 mg by mouth every morning. Take a total of 500 mg; two 200 mg and one 100 mg - melatonin 3 mg tablet TAKE 1 TABLET APPROXIMATELY 7PM NIGHTLY. - clotrimazole-betamethasone (LOTRISONE) cream Apply to affected area twice daily. APPLY TO AFFECTED AREA - fluticasone-salmeterol HFA (ADVAIR HFA) 115-21 mcg/actuation inhaler Inhale 2 Puffs as instructed twice daily. Rinse mouth after use. - albuterol (PROVENTIL) 2.5 mg /3 mL (0.083 %) nebulizer solution Use 3 mL via nebulizer every 4 hours as needed for wheezing/shortness of breath. Use over 5-15minutes. - ipratropium-albuterol (DUONEB) 0.5 mg-3 mg(2.5 mg base)/3 mL nebu Inhale 3 mL as instructed every 6 hours as needed (wheezing). - albuterol HFA (VENTOLIN HFA) 90 mcg/actuation inhaler INHALE 2 PUFFS BY MOUTH DIRECTED EVERY 4 HOURS NEEDED FOR WHEEZING OR SHORTNESS OF BREATH - CPAP Initiate Auto PAP @ 5-20 cm of water with humidification. Mask (per patient preference) optional chin strap (if indicated) , filters, tubing, humidifier and lifetime supplies. - fluticasone (FLONASE) 50 mcg/actuation nasal spray Use 2 Sprays in each nostril once daily. - cetirizine (ZYRTEC) 10 mg tablet Take 1 tablet by mouth once daily as needed. Problem List As Of Date 07/18/2024 Noted Resolved Right upper quadrant abdominal pain [R10.11] 08/08/2015 09/21/2018 Nausea [R11.0] 08/08/2015 09/21/2018 Bloating symptom [R14.0] 08/08/2015 09/21/2018 Mild persistent asthma without complication [J4*08/08/2015 Anxiety and depression [F41.9, F32.A] 08/08/2015 Allergic rhinitis due to animal hair and dander*07/22/2017 Allergic rhinitis due to dust mite [J30.89] 07/22/2017 Seasonal allergic rhinitis due to pollen [J30.1]07/22/2017 Seasonal allergic rhinitis due to fungal spores*07/22/2017 Pulmonary nodules [R91.8] 07/05/2018 Family history of colon cancer [Z80.0] 09/21/2018 Chronic midline low back pain without sciatica *03/14/2019 KAI (obstructive sleep apnea) [G47.33] 06/19/2020 Obesity, Class II, BMI 35-39.9 [E66.812] 09/01/2021 VILLEGAS (dyspnea on exertion) [R06.09] 09/01/2021 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 Normal [facility] CNOVon 07-17-2024 CNOV Office Visit (FAMPWS ) -- JAIME VEGA ([id number]) 1980 M Date Time Provider Department 07/17/24 3:00 PM CONOR PANTOJA FAMPWS During your visit today, we recorded the following information about you: Temperature Pulse Blood pressure Weight 98 degrees 91/minute 114/62 109.3 kg Height 1.753 m Conor Pantoja MD 07/17/2024 3:28 PM Signed Patient presents with: 6 Month Exam HPI: Patient presents today for office visit for routine follow up. Has been ill since Wednesday evening. Started with the sensation of being very hot. Highest temp was 100.3. Progressed into Wednesday. Complains today of nasal congestion and dry cough. No wheezing. Ears are muffled. Refers to lymph node on left side of neck being enlarged. Causing his left side of his far and ear feeling hot. No nausea or vomiting or diarrhea. Has not tried anything for illness other than tylenol. Had to use his albuterol prn. HTN: Does not monitor BP Denies chest pain Some shortness of breath with exertion Denies headaches and dizziness Denies palpitations and syncope Denies edema GERD: Symptoms controlled No heartburn No GI complaints Denies any bloody or black stool Follows with Cardiology. Had Laminectomy discectomy on 06/06/[address] [facility]. Now doing PT. Nerve pain is gone. Will occasionally get some shooting pains just above and below his right knee. Better than it was pre-operatively. Denies any numbness or tingling. Follow up scheduled for today. Not back to work yet. Had lumbar laminectomy. MEDICATIONS: Current Outpatient Medications Medication Sig mupirocin (BACTROBAN) 2% oint Use 0.5 g in the nose two times a day. methocarbamol (ROBAXIN) 750 mg tablet Take 1 tablet by mouth three times a day as needed. docusate sodium (COLACE) 100 mg capsule Take 1 capsule by mouth two times a day. guanFACINE (TENEX) 2 mg tablet omeprazole (PRILOSEC) 40 mg capsule Take 1 capsule by mouth once daily. mometasone (ELOCON) 0.1 % cream Apply 1 application to affected area once daily. amLODIPine (NORVASC) 5 mg tablet Take 1 tablet by mouth once daily. ciprofloxacin-dexAMETHason e (CIPRODEX) 0.3-0.1 % otic suspension Use 4 Drops in both ears two times a day. Savksuuz-Vidqnz-WL-Thonzon ium (CORTISPORIN-TC) otic suspension Use 3 Drops in the ears four times daily. ibuprofen (MOTRIN) 600 mg tablet Take 600 mg by mouth once daily as needed for pain (pain). Takes 600-800mg dose acetaminophen (TYLENOL) 500 mg tablet Take 1,000 mg by mouth as needed for pain. QELBREE 100 mg capsule, extended release Take 200 mg by mouth every morning. Take a total of 500 mg; two 200 mg and one 100 mg melatonin 3 mg tablet TAKE 1 TABLET APPROXIMATELY 7PM NIGHTLY. clotrimazole-betamethasone (LOTRISONE) cream Apply to affected area twice daily. APPLY TO AFFECTED AREA fluticasone-salmeterol HFA (ADVAIR HFA) 115-21 mcg/actuation inhaler Inhale 2 Puffs as instructed twice daily. Rinse mouth after use. albuterol (PROVENTIL) 2.5 mg /3 mL (0.083 %) nebulizer solution Use 3 mL via nebulizer every 4 hours as needed for wheezing/shortness of breath. Use over 5-15minutes. ipratropium-albuterol (DUONEB) 0.5 mg-3 mg(2.5 mg base)/3 mL nebu Inhale 3 mL as instructed every 6 hours as needed (wheezing). albuterol HFA (VENTOLIN HFA) 90 mcg/actuation inhaler INHALE 2 PUFFS BY MOUTH DIRECTED EVERY 4 HOURS NEEDED FOR WHEEZING OR SHORTNESS OF BREATH CPAP Initiate Auto PAP @ 5-20 cm of water with humidification. Mask (per patient preference) optional chin strap (if indicated) , filters, tubing, humidifier and lifetime supplies. fluticasone (FLONASE) 50 mcg/actuation nasal spray Use 2 Sprays in each nostril once daily. cetirizine (ZYRTEC) 10 mg tablet Take 1 tablet by mouth once daily as needed. No current facility-administered medications for this visit. ALLERGIES: ALLERGIES Allergen Reactions Acetaminophen-Codei* Rash Seasonal Allergies Unknown CATS, DOGS, COCKROACHES, MOLDS, TREES, GRASSES, WEEDS AND RAGWEED VERIFIED BY SKIN TESTING Darren [[place]* Other: See Comments irritable PAST MEDICAL HISTORY Diagnosis Date Abdominal pain Anxiety Asthma Depression VILLEGAS (dyspnea on exertion) HTN (hypertension) Mixed hyperlipidemia Obesity Primary cardiomyopathy (HCC) Sleep apnea Spinal stenosis PAST SURGICAL HISTORY Procedure Laterality Date COLONOSCOPY 06/15/2022 repeat in 1 year with MAC COLONOSCOPY FLX DX W/COLLJ SPEC WHEN PFRMD 08/21/2015 Colonoscopy with mac ESOPHAGOGASTRODUODENOSCOPY TRANSORAL DIAGNOSTIC 08/21/2015 EGD with mac PAST SURGICAL HISTORY OF fatty cyst removed from stomach PAST SURGICAL HISTORY OF wisdom teeth FAMILY HISTORY Problem Relation Age of Onset Heart Father Colon Cancer Father other (colitis) Father other (autism) Son GI issues/ear problems/adhd Social (more content not included)... Normal [facility] CNTHERAPYon 07-17-2024 CNTHERAPY OT/PT/Speech Visit ( PTWS) -- JAIME VEGA ([id number]) 1980 M Date Time Provider Department 07/17/24 4:30 PM MALLORY PARKS PTWS Date Time Provider Department Center 07/17/2024 4:30 PM [id number], MARIAH PTWS Kian Treviño Reason for Visit: Physical Therapy [503] PT Discharge [752] Primary Visit Diagnosis:Lumbar radiculopathy [M54.16] Allergies As of Date: 07/17/2024 Noted Allergy Reaction ACETAMINOPHEN-CODEINE 11/26/2015 2 - Rash SEASONAL ALLERGIES 01/05/2017 16 - Unknown Comments: CATS, DOGS, COCKROACHES, MOLDS, TREES, GRASSES, WEEDS AND RAGWEED VERIFIED BY SKIN TESTING SINGULAIR (MONTELUKAST SODIUM) 09/21/2018 14 - Other: See Comments Comments: irritable Date Reviewed: 07/17/2024 Reviewed by: Smiley Parks MA - Fully Assessed Prescriptions as of 03/01/2025 - amLODIPine (NORVASC) 5 mg tablet Take 1 tablet by mouth once daily. - omeprazole (PRILOSEC) 40 mg capsule Take 1 capsule by mouth once daily. - benzonatate (TESSALON PERLE) 100 mg capsule Take 1 capsule by mouth three times a day as needed. - guanFACINE (TENEX) 2 mg tablet - mometasone (ELOCON) 0.1 % cream Apply 1 application to affected area once daily. - QELBREE 100 mg capsule, extended release Take 400 mg by mouth every morning. Take a total of 500 mg; two 200 mg and one 100 mg - melatonin 3 mg tablet TAKE 1 TABLET APPROXIMATELY 7PM NIGHTLY. - clotrimazole-betamethasone (LOTRISONE) cream Apply to affected area twice daily. APPLY TO AFFECTED AREA - fluticasone-salmeterol HFA (ADVAIR HFA) 115-21 mcg/actuation inhaler Inhale 2 Puffs as instructed twice daily. Rinse mouth after use. - albuterol (PROVENTIL) 2.5 mg /3 mL (0.083 %) nebulizer solution Use 3 mL via nebulizer every 4 hours as needed for wheezing/shortness of breath. Use over 5-15minutes. - ipratropium-albuterol (DUONEB) 0.5 mg-3 mg(2.5 mg base)/3 mL nebu Inhale 3 mL as instructed every 6 hours as needed (wheezing). - albuterol HFA (VENTOLIN HFA) 90 mcg/actuation inhaler INHALE 2 PUFFS BY MOUTH DIRECTED EVERY 4 HOURS NEEDED FOR WHEEZING OR SHORTNESS OF BREATH - CPAP Initiate Auto PAP @ 5-20 cm of water with humidification. Mask (per patient preference) optional chin strap (if indicated) , filters, tubing, humidifier and lifetime supplies. - fluticasone (FLONASE) 50 mcg/actuation nasal spray Use 2 Sprays in each nostril once daily. - cetirizine (ZYRTEC) 10 mg tablet Take 1 tablet by mouth once daily as needed. Program Rep: Addendum Therapy (PT/OT/Speech/Resp) ID: [id number] 07/17/2024 5:01 PM Author: MALLORY PARKS Signed by MALLORY PARKS GENERAL I FARMWORKER on 07/17/2024 at 5:01 PM * * * This document replaces document [id number] * * * Document text: Program_ID:[id number] Access Code: [email or web address] URL: [email or web address] Date: 07-17-2024 Prepared By: Janice Anne Program Notes Exercises - Supine Sciatic Nerve Ros[place] - 1 x daily - 7 x weekly - 4 sets - 10 reps - Supine Transversus Abdominis Bracing - Hands on Stomach - 1 x daily - 7 x weekly - 4 sets - 10 reps - Seated Piriformis Stretch - 1 x daily - 7 x weekly - 1 sets - 3 reps - Seated Sciatic Tensioner - 1 x daily - 7 x weekly - 2 sets - 10 reps - Seated Hamstring Stretch - 1 x daily - 7 x weekly - 1 sets - 3 reps Normal [facility] THERAPY NTon 07-17-2024 THERAPY NT HNO ID: [id number] Author: MALLORY PARKS PTA Service: ? Author Type: Supply Planner Type: Therapy (PT/OT/Speech/Resp) Filed: 07/17/2024 17:01 Note Text: Program_ID:[id number] Access Code: [email or web address] URL: [email or web address] Date: 07-17-2024 Prepared By: Janice Anne Program Notes Exercises - Supine Sciatic Nerve [place] - 1 x daily - 7 x weekly - 4 sets - 10 reps - Supine Transversus Abdominis Bracing - Hands on Stomach - 1 x daily - 7 x weekly - 4 sets - 10 reps - Seated Piriformis Stretch - 1 x daily - 7 x weekly - 1 sets - 3 reps - Seated Sciatic Tensioner - 1 x daily - 7 x weekly - 2 sets - 10 reps - Seated Hamstring Stretch - 1 x daily - 7 x weekly - 1 sets - 3 reps Normal [facility] XR CHEST 2V FRONTAL/LATon XR CHEST 2V FRONTAL/LAT * * *Final Report* * * DATE OF EXAM: Jul 17 2024 3:42PM WOX 5291 - XR CHEST 2V FRONTAL/LAT / PROCEDURE REASON: multiple diagnoses * * * * Physician Interpretation * * * * EXAMINATION: CHEST RADIOGRAPH (2 VIEW FRONTAL and LATERAL) CLINICAL HISTORY: URI, acute SOB (shortness of breath) MQ: XC2_6 EXAM DATE/TIME: 07/17/2024 3:42 PM COMPARISON: Chest x-ray dated 06/13/2021 RESULT: Lines, tubes, and devices: None. Lungs and pleura: No consolidation. No lung mass. No pleural effusion. No pneumothorax. Cardiomediastinal silhouette: Normal cardiomediastinal silhouette. Bones and soft tissues: No acute abnormality. IMPRESSION: No acute radiographic abnormality. Optical Advisor: [facility] Transcribe Date/Time: Jul 17 2024 3:59P Dictated by : GREGORY HEAD MD This examination was interpreted and the report reviewed and electronically signed by: GREGORY HEAD MD on Jul 17 2024 4:00PM EST [id number] Normal [facility] XR Chest PA and Lateralon IMPRESSION: No acute radiographic abnormality. Optical Advisor: [facility] Transcribe Date/Time: Jul 17 2024 3:59P Dictated by : GREGORY HEAD MD This examination was interpreted and the report reviewed and electronically signed by: GREGORY HEAD MD on Jul 17 2024 4:00PM EST DIVISION OF RADIOLOGY * * *Final Report* * * DATE OF EXAM: Jul 17 2024 3:42PM WOX 5291 - XR CHEST 2V FRONTAL/LAT / PROCEDURE REASON: multiple diagnoses * * * * Physician Interpretation * * * * EXAMINATION: CHEST RADIOGRAPH (2 VIEW FRONTAL & LATERAL) CLINICAL HISTORY: URI, acute SOB (shortness of breath) MQ: XC2_6 EXAM DATE/TIME: 07/17/2024 3:42 PM COMPARISON: Chest x-ray dated 06/13/2021 RESULT: Lines, tubes, and devices: None. Lungs and pleura: No consolidation. No lung mass. No pleural effusion. No pneumothorax. Cardiomediastinal silhouette: Normal cardiomediastinal silhouette. Bones and soft tissues: No acute abnormality. DIVISION OF RADIOLOGY Provider, [facility] - 07/17/2024 * * *Final Report* * * DATE OF EXAM: Jul 17 2024 3:42PM WOX 5291 - XR CHEST 2V FRONTAL/LAT / PROCEDURE REASON: multiple diagnoses * * * * Physician Interpretation * * * * EXAMINATION: CHEST RADIOGRAPH (2 VIEW FRONTAL & LATERAL) CLINICAL HISTORY: URI, acute SOB (shortness of breath) MQ: XC2_6 EXAM DATE/TIME: 07/17/2024 3:42 PM COMPARISON: Chest x-ray dated 06/13/2021 RESULT: Lines, tubes, and devices: None. Lungs and pleura: No consolidation. No lung mass. No pleural effusion. No pneumothorax. Cardiomediastinal silhouette: Normal cardiomediastinal silhouette. Bones and soft tissues: No acute abnormality. IMPRESSION IMPRESSION: No acute radiographic abnormality. Optical Advisor: [facility] Transcribe Date/Time: Jul 17 2024 3:59P Dictated by : GREGORY HEAD MD This examination was interpreted and the report reviewed and electronically signed by: GREGORY HEAD MD on Jul 17 2024 4:00PM EST [facility] Radiology Study observation (narrative) [facility] XR Chest PA and LateralOrder ed By: [facility] Provider on 07-17-2024 [facility] [id number] 06-29-2024 [id number] HNO ID: [id number] Author: MAK MORALES PT Service: ? Author Type: Physical Therapist Type: [id number] Filed: 06/29/2024 13:20 Note Text: [facility] Physical Therapy Plan of Care Certification Patient Name: Jaime Vega : 1980 [facility] #: [id number] Date: 06/29/2024 To: Meghan Naik PA-C From Therapist: Mak Morales PT RE: Patient Certification/ Recertification Your review, approval and electronic signature are required in order to comply with Payor: [facility] MEDICAID / Plan: [facility] MEDICAID / Product Type: Medicaid / regulations. The identified Physical Therapy PLAN OF CARE for the patient is as follows: M54.16 Lumbar radiculopathy PLAN OF CARE: Assessment: Jaime Vega presents with diagnosis of S/P microdiscectomy on 06/06/24 that interferes with lifting, bending, twisting, working . The patient presents with impairments in independence in exercise, overall function, range of motion, strength, and tissue tenderness. PROMIS? (Patient-Reported Outcomes Measurement Information System) scores were reviewed and identified as a rehabilitation concern. Prognosis for therapy is Good due to: current objective clinical presentation The patient will benefit from skilled therapy services to meet the goals established for this plan of care as noted below. Classification Pain Mechanism Classification: Neuropathic Low Back Pain Classification: Movement Control Goals for Episode of Care: established 06/29/24 Independent in home exercises. Patient will decrease pain rating by 2 points to meet minimal clinical important difference for numeric pain rating scale. Restore pain-free lumbar ROM to WNL to allow for ease of bending, twisting, and lifting. Pt will be able to get OOB without pain in 8 weeks or less Pt will be able to perform work duties without pain in 10 weeks or less Patient Goals: Return to work Time Frame for Goals and Treatment : 08/24/24 Planned Interventions, Frequency, and Duration: Current Frequency: 1x/week Duration: 8 weeks Total Number of Visits Planned: 8 Planned Treatment Interventions: Therapeutic exercise (80435), Neuromuscular re-education (34623), Manual therapy (68648), Self-chcf management (46879), Therapeutic activities (30083), Patient/Family/Caregiver Education PLAN FOR NEXT VISIT: Very gentle sciatic nerve glides. TA strengthening. Lumbar extensor strengthening. Patient demonstrates good understanding of plan of care and treatment. The above goals and plan of care were discussed and agreed upon by patient/family. For further details regarding this patient refer to the Physical Therapy electronically documented visit dated 06/29/2024. Provider Attestation I have reviewed the treatment plan for Jaime Vega, [facility]# [id number] for the period of 06/29/24 -- 08/10/24, established on 06/29/2024. Signature certifies the need for therapy services. Normal [facility] CNTHERAPYon 06-29-2024 CNTHERAPY OT/PT/Speech Visit ( PTWS) -- JAIME VEGA ([id number]) 1980 M Date Time Provider Department 06/29/24 12:15 PM MAK MORALES PTWS Date Time Provider Department Center 06/29/2024 12:15 PM [id number], COREY PTWS Kian Treviño Reason for Visit: PT Eval [747] Visit Diagnosis:Lumbar radiculopathy [M54.16] Allergies As of Date: 06/29/2024 Noted Allergy Reaction ACETAMINOPHEN-CODEINE 11/26/2015 2 - Rash SEASONAL ALLERGIES 01/05/2017 16 - Unknown Comments: CATS, DOGS, COCKROACHES, MOLDS, TREES, GRASSES, WEEDS AND RAGWEED VERIFIED BY SKIN TESTING SINGULAIR (MONTELUKAST SODIUM) 09/21/2018 14 - Other: See Comments Comments: irritable Date Reviewed: 06/06/2024 Reviewed by: Charissa Kemp RN - Fully Assessed Prescriptions as of 06/29/2024 - mupirocin (BACTROBAN) 2% oint Use 0.5 g in the nose two times a day. - methocarbamol (ROBAXIN) 750 mg tablet Take 1 tablet by mouth three times a day as needed. - docusate sodium (COLACE) 100 mg capsule Take 1 capsule by mouth two times a day. - guanFACINE (TENEX) 2 mg tablet - omeprazole (PRILOSEC) 40 mg capsule Take 1 capsule by mouth once daily. - mometasone (ELOCON) 0.1 % cream Apply 1 application to affected area once daily. - amLODIPine (NORVASC) 5 mg tablet Take 1 tablet by mouth once daily. - ciprofloxacin-dexAMETHason e (CIPRODEX) 0.3-0.1 % otic suspension Use 4 Drops in both ears two times a day. - Jtquarwt-Fsmutu-WQ-Thonzon ium (CORTISPORIN-TC) otic suspension Use 3 Drops in the ears four times daily. - ibuprofen (MOTRIN) 600 mg tablet Take 600 mg by mouth once daily as needed for pain (pain). Takes 600-800mg dose - acetaminophen (TYLENOL) 500 mg tablet Take 1,000 mg by mouth as needed for pain. - QELBREE 100 mg capsule, extended release Take 200 mg by mouth every morning. Take a total of 500 mg; two 200 mg and one 100 mg - melatonin 3 mg tablet TAKE 1 TABLET APPROXIMATELY 7PM NIGHTLY. - clotrimazole-betamethasone (LOTRISONE) cream Apply to affected area twice daily. APPLY TO AFFECTED AREA - fluticasone-salmeterol HFA (ADVAIR HFA) 115-21 mcg/actuation inhaler Inhale 2 Puffs as instructed twice daily. Rinse mouth after use. - albuterol (PROVENTIL) 2.5 mg /3 mL (0.083 %) nebulizer solution Use 3 mL via nebulizer every 4 hours as needed for wheezing/shortness of breath. Use over 5-15minutes. - ipratropium-albuterol (DUONEB) 0.5 mg-3 mg(2.5 mg base)/3 mL nebu Inhale 3 mL as instructed every 6 hours as needed (wheezing). - albuterol HFA (VENTOLIN HFA) 90 mcg/actuation inhaler INHALE 2 PUFFS BY MOUTH DIRECTED EVERY 4 HOURS NEEDED FOR WHEEZING OR SHORTNESS OF BREATH - CPAP Initiate Auto PAP @ 5-20 cm of water with humidification. Mask (per patient preference) optional chin strap (if indicated) , filters, tubing, humidifier and lifetime supplies. - fluticasone (FLONASE) 50 mcg/actuation nasal spray Use 2 Sprays in each nostril once daily. - cetirizine (ZYRTEC) 10 mg tablet Take 1 tablet by mouth once daily as needed. Program Rep: Therapy (PT/OT/Speech/Resp) ID: [id number] 06/29/2024 12:55 PM Author: MAK MORALES Signed by MAK MORALES PT on 06/29/2024 at 12:55 PM Document text: Program_ID:[id number] Access Code: [email or web address] URL: [email or web address] Date: 06-29-2024 Prepared By: Janice Anne Program Notes Exercises - Supine Sciatic Nerve Ros[place] - 1 x daily - 7 x weekly - 4 sets - 10 reps - Supine Lower Trunk Rotation - 1 x daily - 7 x weekly - 4 sets - 10 reps - Supine Lower Trunk Rotation - 1 x daily - 7 x weekly - 4 sets - 10 reps - Supine Transversus Abdominis Bracing - Hands on Stomach - 1 x daily - 7 x weekly - 4 sets - 10 reps Therapy (PT/OT/Speech/Resp) ID: [id number] 06/29/2024 12:55 PM Author: MAK MORALES Signed by MAK MORALES PT on 06/29/2024 at 12:55 PM Document text: Program_ID:[id number] Access Code: [email or web address] URL: [email or web address] Date: 06-29-2024 Prepared By: Janice Anne Program Notes Exercises - Supine Sciatic Nerve Ros[place] - 1 x daily - 7 x weekly - 4 sets - 10 reps - Supine Lower Trunk Rotation - 1 x daily - 7 x weekly - 4 sets - 10 reps - Supine Lower Trunk Rotation - 1 x daily - 7 x weekly - 4 sets - 10 reps - Supine Transversus Abdominis Bracing - Hands on Stomach - 1 x daily - 7 x weekly - 4 sets - 10 reps Normal [facility] THERAPY NTon 06-29-2024 THERAPY NT HNO ID: [id number] Author: MAK MORALES PT Service: ? Author Type: Physical Therapist Type: Therapy (PT/OT/Speech/Resp) Filed: 06/29/2024 12:55 Note Text: Program_ID:[id number] Access Code: [email or web address] URL: [email or web address] Date: 06-29-2024 Prepared By: Janice Anne Program Notes Exercises - Supine Sciatic Nerve Ros[place] - 1 x daily - 7 x weekly - 4 sets - 10 reps - Supine Lower Trunk Rotation - 1 x daily - 7 x weekly - 4 sets - 10 reps - Supine Lower Trunk Rotation - 1 x daily - 7 x weekly - 4 sets - 10 reps - Supine Transversus Abdominis Bracing - Hands on Stomach - 1 x daily - 7 x weekly - 4 sets - 10 reps Normal [facility] THERAPY NT HNO ID: [id number] Author: MAK MORALES PT Service: ? Author Type: Physical Therapist Type: Therapy (PT/OT/Speech/Resp) Filed: 06/29/2024 12:55 Note Text: Program_ID:[id number] Access Code: [email or web address] URL: [email or web address] Date: 06-29-2024 Prepared By: Janice Anne Program Notes Exercises - Supine Sciatic Nerve [place] - 1 x daily - 7 x weekly - 4 sets - 10 reps - Supine Lower Trunk Rotation - 1 x daily - 7 x weekly - 4 sets - 10 reps - Supine Lower Trunk Rotation - 1 x daily - 7 x weekly - 4 sets - 10 reps - Supine Transversus Abdominis Bracing - Hands on Stomach - 1 x daily - 7 x weekly - 4 sets - 10 reps Normal [facility] ANES POSTPROC EVALon 025 ANES POSTPROC EVAL HNO ID: [id number] Author: SIENA SALTER MD Service: Anesthesiology Author Type: Anesthesiologist Type: Anesthesia Postprocedure Evaluation Filed: 06/06/2024 12:48 Note Text: POST ANESTHESIA EVALUATION NOTE : 1980 Procedure Summary Date: 06/06/24 Room / Location: OR / OR Anesthesia Start: 833 Anesthesia Stop: 1015 Procedure: LAMINECTOMY DISCECTOMY LUMBAR LEVEL 1 (Right: Spine Lumbar) Diagnosis: Lumbar radiculopathy Bulging lumbar disc Spinal stenosis of lumbar region without neurogenic claudication (Lumbar radiculopathy [M54.16]) (Bulging lumbar disc [M51.369]) (Spinal stenosis of lumbar region without neurogenic claudication [M48.061]) Surgeons: Silas Brown MD Responsible Provider: Siena Salter MD Anesthesia Type: general ASA Status: 3 Anesthesia Type: general Airway Type: ETT Last Vitals Vitals Value Taken Time BP 117/78 06/06/24 1207 Temp 36.8 ?C (98.2 ?F) 06/06/24 1207 HR SpO2 71 06/06/24 1146 Resp 16 06/06/24 1207 SpO2 94 % 06/06/24 1207 Vitals shown include unfiled device data. Post Anesthesia Patient Status Patient Evaluation: PACU. PACU/ICU Patient Condition: stable. Anticipated Disposition: phase 2 then home. Neurological Status: aware and responsive. Pulmonary Status: breathing comfortably on room air Airway Control: returned to baseline unsupported. Cardiovascular Status: stable. Pain Management: clinically adequate - multimodal analgesia pain management approach Postoperative Hydration: acceptable. Intraoperative Events: no significant anesthesia events Post Operative Nausea/Vomiting Status: no significant post operative nausea or vomiting Recommendation: continue current plan of care and further care per PACU/ICU/floor team. Anesthesia Observations No Documentation SIGNATURE: Siena Salter MD PATIENT NAME: Jaime Vega DATE: June 06, 2024 TIME: 12:48 PM CSN: [id number] [facility] ANES PRE-OPon 06-06-2024 ANES PRE-OP HNO ID: [id number] Author: SIENA SALTER MD Service: Anesthesiology Author Type: Anesthesiologist Type: Anesthesia Preprocedure Evaluation Filed: 06/06/2024 08:19 Note Text: ANESTHESIOLOGY DAY OF SURGERY NOTE : 1980 Procedure Information Date/Time: 06/06/24829 Procedure: LAMINECTOMY DISCECTOMY LUMBAR LEVEL 1 (Right: Spine Lumbar) - Right L4-5 microdiscectomy Location: OR08 / PATI OR Surgeons: Silas Brown MD Estimated body mass index is 36.03 kg/m? as calculated from the following: Height as of 05/15/24: 175.3 cm (5' 9). Weight as of 05/15/24: 110.7 kg (244 lb). Most recent hematocrit and potassium results: Hematocrit 44.8 05/15/2024 Potassium 4.3 05/15/2024 Relevant Problems ANESTHESIA (+) KAI (obstructive sleep apnea) CARDIO (+) VILLEGAS (dyspnea on exertion) (+) Enlarged thoracic aorta (HCC) (+) Primary hypertension PULMONARY (+) VILLEGAS (dyspnea on exertion) (+) Mild persistent asthma without complication (+) KAI (obstructive sleep apnea) The patient is compliant with C-PAP for KAI. ECHO, 12/26/2023: CONCLUSIONS: - Technically difficult exam due to body habitus. - Exam indication: Shortness of Breath - The left ventricle is normal in size. Left ventricular systolic function is normal. EF = 58 ? 5% (2D biplane). Normal left ventricular diastolic function. - The right ventricle is normal in size. Right ventricular systolic function is normal. - There are no significant valvular abnormalities. - The visualized aorta is borderline dilated with a maximal dimension of 3.8 cm. - Exam was compared with the prior echocardiographic exam performed on 09/18/2021, no significant change. I - PHYSICAL EVALUATION AIRWAY Patient intubated: No. Tracheostomy tube not present Mallampati: II. TM distance: >3 FB. Neck ROM: full ROM without neurological symptoms. Mouth opening: adequate. Short neck: no. Thick neck: no Camacho present: yes DENTAL Dental findings: teeth intact. II - ANESTHESIA PLAN ASA Score: 3 Anesthetic Plan: general Airway type: ETT The patient is not a current smoker. NPO Status: adequate Beta Gloria Monitoring Plan Monitoring plan: standard ASA. Post Procedure Analgesic Plan Postoperative analgesic plan: parenteral or oral opioids and multimodal analgesia. Informed Consent Anesthetic risks, benefits, alternatives, personnel and consent discussed: yes. Patient / Responsible Democrat agrees to proceed: yes Patient / Surrogate agrees to blood products: Yes Significant changes in the patient condition since the History and Physical, not otherwise documented in primary service progress note: no. Potential Anesthesia issues that may suggest increased risk of complications or contraindication to planned procedure: none. Vitals Value Taken Time BP 142/92 06/06/24 0748 Pulse 72 06/06/24 0748 Resp 18 06/06/24 0748 Temp 36.8 ?C (98.2 ?F) 06/06/24 0748 SpO2 98 % 06/06/24 0748 Facility-Administered Medications as of 06/06/2024 Medication Dose Route Frequency [COMPLETED] acetaminophen 1,000 mg tab(s) (TYLENOL) 1,000 mg ORAL Pre-Op Once [COMPLETED] promethazine 12.5 mg tab(s) (PHENERGAN) 12.5 mg ORAL Pre-Op Once lactated ringers iv infusion 75 mL/hr INTRAVENOUS CONTINUOUS ceFAZolin iv piggyback 2 g in D5W (iso-osmotic) 100 mL (ANCEF) 2 g INTRAVENOUS ONCE NaCl 0.9% iv flush bag 20 mL INTRAVENOUS PRN Outpatient Medications as of 06/06/2024 Medication Sig guanFACINE (TENEX) 2 mg tablet omeprazole (PRILOSEC) 40 mg capsule Take 1 capsule by mouth once daily. amLODIPine (NORVASC) 5 mg tablet Take 1 tablet by mouth once daily. acetaminophen (TYLENOL) 500 mg tablet Take 1,000 mg by mouth as needed for pain. QELBREE 100 mg capsule, extended release Take 200 mg by mouth every morning. Take a total of 500 mg; two 200 mg and one 100 mg fluticasone-salmeterol HFA (ADVAIR HFA) 115-21 mcg/actuation inhaler Inhale 2 Puffs as instructed twice daily. Rinse mouth after use. albuterol (PROVENTIL) 2.5 mg /3 mL (0.083 %) nebulizer solution Use 3 mL via nebulizer every 4 hours as needed for wheezing/shortness of breath. Use over 5-15minutes. albuterol HFA (VENTOLIN HFA) 90 mcg/actuation inhaler INHALE 2 PUFFS BY MOUTH DIRECTED EVERY 4 HOURS NEEDED FOR WHEEZING OR SHORTNESS OF BREATH CPAP Initiate Auto PAP @ 5-20 cm of water with humidification. Mask (per patient preference) optional chin strap (if indicated) , filters, tubing, humidifier and lifetime supplies. cetirizine (ZYRTEC) 10 mg tablet Take 1 tablet by mouth once daily as needed. mupirocin (BACTROBAN) 2% oint Use 0.5 g in the nose two times a day. mometasone (ELOCON) 0.1 % cream Apply 1 application to affected area once daily. ciprofloxacin-dexAMETHason e (CIPRODEX) 0.3-0.1 % otic suspension Use 4 Drops in both ears two times a day. Eeomrtkh-Jiluzb-KC-Thonzon ium (CORTISPORIN-TC) otic suspension Use 3 Drops in the ears four times daily. ibup (more content not included)... [facility] BRIEF OP NOTon 06-06-2024 BRIEF OP NOT HNO ID: [id number] Author: SILAS BROWN MD Service: Neurosurgery Author Type: Physician Type: Brief Op Note Filed: 06/06/2024 10:02 Note Text: BRIEF OPERATIVE / PROCEDURE NOTE LOG ID: [id number] SURGERY/PROCEDURE DATE: 06/06/2024 INCISION/PROCEDURE START TIME: 9:02 AM INCISION CLOSE/PROCEDURE END TIME: 10:01 AM SURGEON(S)/PROCEDURALIST(S ) AND DIRECTOR OF EPIDEMIOLOGY(S): Surgeons and Role: * Silas Brown MD - Primary Nurse Practitioner: Kilo Tinajero APRN.CNP SURGERY/PROCEDURE(S): Right L4/5 microdiscectomy ANESTHESIA: General FINDINGS: Appropriate decompression ESTIMATED BLOOD LOSS: 10 mls SPECIMENS: None COMPLICATIONS: None CLOSURE TECHNIQUE: Primary PRE-OP/PRE-PROCEDURE DIAGNOSIS: Right L4/5 herniated disc POST-OP/POST-PROCEDURE DIAGNOSIS: Right L4/5 herniated disc Patient was accompanied to the next level of care by a licensed practitioner from the surgical team pending completion of this brief op note (or operative note) SIGNATURE: Silas Brown MD PATIENT NAME: Jaime Vega DATE: June 06, 2024 TIME: 9:44 AM [facility] OPERATIVE NOon 06-06-2024 OPERATIVE NO HNO ID: [id number] Author: SILAS BROWN MD Service: Neurosurgery Author Type: Physician Type: Operative Report Filed: 06/06/2024 10:02 Note Text: OPERATIVE/PROCEDURE REPORT LOG ID: [id number] SURGERY/PROCEDURE DATE: 06/06/2024 INCISION/PROCEDURE START TIME: 9:02 AM INCISION CLOSE/PROCEDURE END TIME: 10:01 AM SURGEON(S)/PROCEDURALIST(S ) AND DIRECTOR OF EPIDEMIOLOGY(S): Surgeons and Role: * Silas Brown MD - Primary Nurse Practitioner: Kilo Tinajero APRN.CNP SURGERY/PROCEDURE(S): Right L4/5 microdiscectomy ANESTHESIA: General INDICATION: 43 yo M who presents to the clinic with symptoms of low back and right leg pain in L5 distribution. MRI lumbar spine showed central and right paracentral disc herniation. Patient failed conservative management. Decision was made for R L4/5 microdiscectomy. SURGERY/PROCEDURE DETAILS: Patient was brought to the operating room. A huddle was performed with anesthesia team and nursing staff and surgical team all agreed to proceed. Patient was positioned prone on the Kumar table. IV antibiotics were given. The area was prepped and draped in usual fashion. A #15 blade scalpel was used to make an incision approximately 3 cm in length in the midline lumbar region. Monopolar cautery and blunt dissection were used to dissect down to the fascial plain and achieved hemostasis. Fascia was cleared and then incised down to the spinous process of L4. Using bony landmarks, the soft tissues and muscles were reflected laterally to the right side. Once adequate visualization of the L4 was achieved, a self-retaining retractor was inserted. An instrument was inserted into the wound to identify the L4 level utilizing cross-table intra-operative x-ray. After verification of the level, the high speed side-cutting air drill was used to perform a hemilaminectomy of L4 on the right side. Once the lamina had been removed, a curette was used to remove the ligamentum flavum and expose the dura. Once the dura was visualized, a Kerrison rongeur was then used to remove the remainder of the ligamentum flavum and soft tissue. Adequate hemostasis was achieved with bipolar cautery. The nerve root was retracted medially with a nerve root retractor. The pituitary grabber was used along with the blunt tip nerve hook to free a disk fragment impinging on the nerve root. The pituitary grabber removed the disk fragment successfully. Additional disk fragments were identified and removed with the pituitary grabber. The nerve was well decompressed. Incision was closed in 3 layers. 1 Vicryl for fascia, 2-0 Vicryl for subcutaneous layer, rd for skin. Dressing was applied. Patient was gently emerged from anesthesia and was transferred to PACU in stable condition. PRE-OP/PRE-PROCEDURE DIAGNOSIS: Right L4/5 herniated disc POST-OP/POST-PROCEDURE DIAGNOSIS: Right L4/5 herniated disc ESTIMATED BLOOD LOSS: 10 mls SPECIMENS: None IMPLANTABLE DEVICES: NONE DRAINS: None COMPLICATIONS: None CLOSURE TECHNIQUE: Primary PARTICIPATION IN SURGERY/PROCEDURE: Silas Brown and Kilo Tinajero performed the opening, decompression and closure together. SIGNATURE: Silas Brown MD PATIENT NAME: Jaime Vega DATE: June 06, 2024 TIME: 9:49 AM [facility] XR LUMBAR SPECIFY 1Von 06-06 XR LUMBAR SPECIFY 1V * * *Final Report* * * DATE OF EXAM: Jun 06 2024 11:44AM MIGUEL [id number] - XR LUMBAR SPECIFY 1V / PROCEDURE REASON: Lumbar radiculopathy * * * * Physician Interpretation * * * * EXAMINATION: XR LUMBAR SPECIFY 1V CLINICAL INFORMATION: 43 years old Male with Lumbar radiculopathy TECHNIQUE: Single lateral intraoperative image of the lumbar spine timed 8:56 AM labeled #1. COMPARISON: MRI lumbar spine 05/15/2024 RESULT: Counting reference: Lumbosacral junction. Transitional L5 vertebral body correlating with MRI 05/15/2024. L3-L4 is considered the level of the iliac crest. A single lateral image is obtained intraoperatively for surgical planning. Through a posterior approach, a localizing surgical instrument tip is in the dorsal soft tissues directed towards the L4 level. IMPRESSION: Intraoperative examination for surgical planning and documentation. Optical Advisor: PSCB Transcribe Date/Time: Jun 06 2024 11:58A Dictated by : IBETH GAMBOA DO This examination was interpreted and the report reviewed and electronically signed by: IBETH GAMBOA DO on Jun 06 2024 11:59AM EST [id number] [facility] XR VERIFY LEVEL [id number] 06-06-2024 XR VERIFY LEVEL L-SPINE-NB * * *Final Report* * * DATE OF EXAM: Jun 06 2024 9:10AM MIGUEL [id number] - XR VERIFY LEVEL L-SPINE-NB / PROCEDURE REASON: Lumbar radiculopathy * * * * Physician Interpretation * * * * TECHNIQUE: Single lateral image of the lumbar spine COUNTING REFERENCE: Lumbosacral junction. RESULT: A single lateral image is obtained intraoperatively for surgical planning. A localizing surgical instrument is noted, L4 pars. Image annotated with vertebral body levels and confirmed with the responsible surgeon at the time of interpretation. IMPRESSION: OPERATIVE ASSESSMENT COMMUNICATION: Localization level(s) confirmed with: Dr. Brown on 06/06/2024 at 0913 hours, via phone and Skype during the surgical procedure. Optical Advisor: CARLOS Transcribe Date/Time: Jun 06 2024 9:11A Dictated by : ERICK LIND MD This examination was interpreted and the report reviewed and electronically signed by: ERICK LIND MD on Jun 06 2024 9:13AM EST [id number] [facility] JAIME VEGA ([id number]) 1980 M Date Time Provider Department 05/26/24 SILAS BROWN During your visit today, we recorded the following information about you: Coby Steiner 05/26/2024 3:44 PM Signed FMLA form scanned to [facility] Genna Jalloh RN 05/26/2024 3:48 PM Signed Printed for review and signature. Genna Jalloh RN 05/30/2024 9:28 AM Signed Completed and addressed in other encounter from patient. Allergies As of Date: 05/26/2024 Noted Allergy Reaction ACETAMINOPHEN-CODEINE 11/26/2015 2 - Rash SEASONAL ALLERGIES 01/05/2017 16 - Unknown Comments: CATS, DOGS, COCKROACHES, MOLDS, TREES, GRASSES, WEEDS AND RAGWEED VERIFIED BY SKIN TESTING SINGULAIR (MONTELUKAST SODIUM) 09/21/2018 14 - Other: See Comments Comments: irritable Date Reviewed: 05/19/2024 Reviewed by: Igor Quijano APRN.[facility] - Fully Assessed Reason for Visit: FMLA form [Other] Prescriptions as of 05/30/2024 - mupirocin (BACTROBAN) 2 % ointment Apply 1/2 ointment with a cotton swab in each nostril 2x daily for five days preop Patient should start on June 01, 2024. - guanFACINE (TENEX) 2 mg tablet - omeprazole (PRILOSEC) 40 mg capsule Take 1 capsule by mouth once daily. - mometasone (ELOCON) 0.1 % cream Apply 1 application to affected area once daily. - amLODIPine (NORVASC) 5 mg tablet Take 1 tablet by mouth once daily. - ciprofloxacin-dexAMETHason e (CIPRODEX) 0.3-0.1 % otic suspension Use 4 Drops in both ears two times a day. - Ggcxvkxj-Bvmgyp-MQ-Thonzon ium (CORTISPORIN-TC) otic suspension Use 3 Drops in the ears four times daily. - ibuprofen (MOTRIN) 600 mg tablet Take 600 mg by mouth once daily as needed for pain (pain). Takes 600-800mg dose - acetaminophen (TYLENOL) 500 mg tablet Take 1,000 mg by mouth as needed for pain. - QELBREE 100 mg capsule, extended release Take 200 mg by mouth every morning. Take a total of 500 mg; two 200 mg and one 100 mg - melatonin 3 mg tablet TAKE 1 TABLET APPROXIMATELY 7PM NIGHTLY. - clotrimazole-betamethasone (LOTRISONE) cream Apply to affected area twice daily. APPLY TO AFFECTED AREA - fluticasone-salmeterol HFA (ADVAIR HFA) 115-21 mcg/actuation inhaler Inhale 2 Puffs as instructed twice daily. Rinse mouth after use. - albuterol (PROVENTIL) 2.5 mg /3 mL (0.083 %) nebulizer solution Use 3 mL via nebulizer every 4 hours as needed for wheezing/shortness of breath. Use over 5-15minutes. - ipratropium-albuterol (DUONEB) 0.5 mg-3 mg(2.5 mg base)/3 mL nebu Inhale 3 mL as instructed every 6 hours as needed (wheezing). - albuterol HFA (VENTOLIN HFA) 90 mcg/actuation inhaler INHALE 2 PUFFS BY MOUTH DIRECTED EVERY 4 HOURS NEEDED FOR WHEEZING OR SHORTNESS OF BREATH - CPAP Initiate Auto PAP @ 5-20 cm of water with humidification. Mask (per patient preference) optional chin strap (if indicated) , filters, tubing, humidifier and lifetime supplies. - fluticasone (FLONASE) 50 mcg/actuation nasal spray Use 2 Sprays in each nostril once daily. - cetirizine (ZYRTEC) 10 mg tablet Take 1 tablet by mouth once daily as needed. Problem List As Of Date 05/26/2024 Noted Resolved Right upper quadrant abdominal pain [R10.11] 08/08/2015 09/21/2018 Nausea [R11.0] 08/08/2015 09/21/2018 Bloating symptom [R14.0] 08/08/2015 09/21/2018 Mild persistent asthma without complication [J4*08/08/2015 Anxiety and depression [F41.9, F32.A] 08/08/2015 Allergic rhinitis due to animal hair and dander*07/22/2017 Allergic rhinitis due to dust mite [J30.89] 07/22/2017 Seasonal allergic rhinitis due to pollen [J30.1]07/22/2017 Seasonal allergic rhinitis due to fungal spores*07/22/2017 Pulmonary nodules [R91.8] 07/05/2018 Family history of colon cancer [Z80.0] 09/21/2018 Chronic midline low back pain without sciatica *03/14/2019 KAI (obstructive sleep apnea) [G47.33] 06/19/2020 Obesity, Class II, BMI 35-39.9 [E66.812] 09/01/2021 VILLEGAS (dyspnea on exertion) [R06.09] 09/01/2021 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 aureus and MRSA panel LOI+probe (Nose) Not detected Normal Not Detected [facility] Comment on above: Order Comment: Speci men Type: SWABOrdering Facility: [facility] Address: [address] [place] [address] Performed By: #### S APCR ####[facility] LABCLIA [id number] [place] [address] [place] CBC W Auto Differential pane l (Bld)on 05-15-2024 Basophils (Bld) [#/Vol] 0.07 10*3/uL [facility] Basophils/100 WBC (Bld) 0.8 % [facility] Differential cell count method Nom (Bld) Auto [facility] Eosinophils (Bld) [#/Vol] 0.12 10*3/uL [facility] Eosinophils/100 WBC (Bld) 1.4 % [facility] Erythrocyte distribution width (RBC) [Ratio] 13.2 % 11.5 - 15.0 % [facility] Hematocrit (Bld) [Volume fraction] 44.8 % 39.0 - 51.0 % [facility] Hemoglobin (Bld) [Mass/Vol] 15.3 g/dL 13.0 - 17.0 g/dL [facility] Immature granulocytes (Bld) [#/Vol] [facility] Immature granulocytes/100 WBC (Bld) 0.2 % [facility] Lymphocytes (Bld) [#/Vol] 3.17 10*3/uL [facility] Lymphocytes/100 WBC (Bld) 36.8 % [facility] MCH (RBC) [Entitic mass] 31.1 pg 26.0 - 34.0 pg [facility] MCHC (RBC) [Mass/Vol] 34.2 g/dL 30.5 - 36.0 g/dL [facility] MCV (RBC) [Entitic vol] 91.1 fL 80.0 - 100.0 fL [facility] Monocytes (Bld) [#/Vol] 0.68 10*3/uL [facility] Monocytes/100 WBC (Bld) 7.9 % [facility] Neutrophils (Bld) [#/Vol] 4.55 10*3/uL [facility] Neutrophils/100 WBC (Bld) 52.9 % [facility] Nucleated RBC (Bld) [#/Vol] [facility] Nucleated RBC/100 WBC (Bld) [Ratio] 0.0 % /100 WBC [facility] Platelet mean volume (Bld) [Entitic vol] 11.1 fL 9.0 - 12.7 fL [facility] Platelets (Bld) [#/Vol] 292 10*3/uL [facility] RBC (Bld) [#/Vol] 4.92 10*6/uL 4.20 - 6.0 0 m/uL [facility] WBC (Bld) [#/Vol] 8.61 10*3/uL [facility] Basophils (Bld) [#/Vol] 0.07 10*3/uL Normal <0.11 [facility] Comment on above: Order Comment: Speci men Type: BLOOD SPECIMENOrdering Facility: [facility] Address: [address] [place] [address] Performed By: #### 5 7021-8 ####[facility] LABCLIA [id number] [place] [address] [place] Basophils/100 WBC (Bld) 0.8 % Normal [facility] Comment on above: Order Comment: Speci men Type: BLOOD SPECIMENOrdering Facility: [facility] Address: [address] [place] [address] Performed By: #### 5 7021-8 ####[facility] LABCLIA [id number] [place] [address] [place] Differential cell count method Nom (Bld) Auto Normal [facility] Comment on above: Order Comment: Speci men Type: BLOOD SPECIMENOrdering Facility: [facility] Address: [address] [place] [address] Performed By: #### 5 7021-8 ####[facility] LABCLIA [id number] [place] [address] [place] Eosinophils (Bld) [#/Vol] 0.12 10*3/uL Normal <0.46 [facility] Comment on above: Order Comment: Speci men Type: BLOOD SPECIMENOrdering Facility: [facility] Address: [address] [place] [address] Performed By: #### 5 7021-8 ####[facility] LABCLIA [id number] [place] [address] [place] Eosinophils/100 WBC (Bld) 1.4 % Normal [facility] Comment on above: Order Comment: Speci men Type: BLOOD SPECIMENOrdering Facility: [facility] Address: [address] [place] [address] Performed By: #### 5 7021-8 ####[facility] LABIA [id number] [place] [address] [place] Erythrocyte distribution width (RBC) [Ratio] 13.2 % Normal 11.5-15.0 [facility] Comment on above: Order Comment: Speci men Type: BLOOD SPECIMENOrdering Facility: [facility] Address: [address] [place] [address] Performed By: #### 5 7021-8 ####[facility] LABIA [id number] [place] [address] [place] Hematocrit (Bld) [Volume fraction] 44.8 % Normal 39.0-51.0 [facility] Comment on above: Order Comment: Speci men Type: BLOOD SPECIMENOrdering Facility: [facility] Address: [address] [place] [address] Performed By: #### 5 7021-8 ####[facility] LABCLIA [id number] [place] [address] [place] Hemoglobin (Bld) [Mass/Vol] 15.3 g/dL Normal 13.0-17.0 [facility] Comment on above: Order Comment: Speci men Type: BLOOD SPECIMENOrdering Facility: [facility] Address: [address] [place] [address] Performed By: #### 5 7021-8 ####[facility] LABIA [id number] [place] [id number] [place] Immature granulocytes (Bld) [#/Vol] 10*3/uL Normal <0.10 [facility] Comment on above: Order Comment: Speci men Type: BLOOD SPECIMENOrdering Facility: [facility] Address: [address] [place] [address] Performed By: #### 5 7021-8 ####[facility] LABCLIA [id number] [place] [address] [place] Immature granulocytes/100 WBC (Bld) 0.2 % Normal [facility] Comment on above: Order Comment: Speci men Type: BLOOD SPECIMENOrdering Facility: [facility] Address: [address] [place] [address] Performed By: #### 5 7021-8 ####[facility] LABCLIA [id number] [place] [address] [place] Lymphocytes (Bld) [#/Vol] 3.17 10*3/uL Normal 1.00-4.00 [facility] Comment on above: Order Comment: Speci men Type: BLOOD SPECIMENOrdering Facility: [facility] Address: [address] [place] [address] Performed By: #### 5 7021-8 ####[facility] LABCLIA [id number] [place] [address] [place] Lymphocytes/100 WBC (Bld) 36.8 % Normal [facility] Comment on above: Order Comment: Speci men Type: BLOOD SPECIMENOrdering Facility: [facility] Address: [address] [place] [address] Performed By: #### 5 7021-8 ####[facility] LABCLIA [id number] [place] [address] [place] MCH (RBC) [Entitic mass] 31.1 pg Normal 26.0-34.0 [facility] Comment on above: Order Comment: Speci men Type: BLOOD SPECIMENOrdering Facility: [facility] Address: [address] [place] [address] Performed By: #### 5 7021-8 ####[facility] LABCLIA [id number] [place] [address] [place] MCHC (RBC) [Mass/Vol] 34.2 g/dL Normal 30.5-36.0 [facility] Comment on above: Order Comment: Speci men Type: BLOOD SPECIMENOrdering Facility: [facility] Address: [address] [place] [address] Performed By: #### 5 7021-8 ####[facility] LABCLIA [id number] [place] [address] [place] MCV (RBC) [Entitic vol] 91.1 fL Normal 80.0-100.0 [facility] Comment on above: Order Comment: Speci men Type: BLOOD SPECIMENOrdering Facility: [facility] Address: [address] [place] [address] Performed By: #### 5 7021-8 ####[facility] LABIA [id number] [place] [address] [place] Monocytes (Bld) [#/Vol] 0.68 10*3/uL Normal <0.87 [facility] Comment on above: Order Comment: Speci men Type: BLOOD SPECIMENOrdering Facility: [facility] Address: [address] [place] [address] Performed By: #### 5 7021-8 ####[facility] LABCLIA [id number] [place] [address] [place] Monocytes/100 WBC (Bld) 7.9 % Normal [facility] Comment on above: Order Comment: Speci men Type: BLOOD SPECIMENOrdering Facility: [facility] Address: [address] [place] [address] Performed By: #### 5 7021-8 ####[facility] LABCLIA [id number] [place] [address] [place] Neutrophils (Bld) [#/Vol] 4.55 10*3/uL Normal 1.45-7.50 [facility] Comment on above: Order Comment: Speci men Type: BLOOD SPECIMENOrdering Facility: [facility] Address: [address] [place] [address] Performed By: #### 5 7021-8 ####[facility] LABCLIA [id number] [place] [address] [place] Neutrophils/100 WBC (Bld) 52.9 % Normal [facility] Comment on above: Order Comment: Speci men Type: BLOOD SPECIMENOrdering Facility: [facility] Address: [address] [place] [address] Performed By: #### 5 7021-8 ####[facility] LABCLIA [id number] [place] [address] [place] Nucleated RBC (Bld) [#/Vol] 10*3/uL Normal <0.01 [facility] Comment on above: Order Comment: Speci men Type: BLOOD SPECIMENOrdering Facility: [facility] Address: [address] [place] [address] Performed By: #### 5 7021-8 ####[facility] LABCLIA [id number] [place] [address] [place] Nucleated RBC/100 WBC (Bld) [Ratio] 0.0 /100 WBC Normal [facility] Comment on above: Order Comment: Speci men Type: BLOOD SPECIMENOrdering Facility: [facility] Address: [address] [place] [address] Performed By: #### 5 7021-8 ####[facility] LABCLIA [id number] [place] [address] [place] Platelet mean volume (Bld) [Entitic vol] 11.1 fL Normal 9.0-12.7 [facility] Comment on above: Order Comment: Speci men Type: BLOOD SPECIMENOrdering Facility: [facility] Address: [address] [place] [address] Performed By: #### 5 7021-8 ####[facility] LABCLIA [id number] [place] [address] [place] Platelets (Bld) [#/Vol] 292 10*3/uL Normal 150-400 [facility] Comment on above: Order Comment: Speci men Type: BLOOD SPECIMENOrdering Facility: [facility] Address: [address] [place] [address] Performed By: #### 5 7021-8 ####[facility] LABIA [id number] [place] [address] [place] RBC (Bld) [#/Vol] 4.92 10*6/uL Normal 4.20-6.00 [facility] Comment on above: Order Comment: Speci men Type: BLOOD SPECIMENOrdering Facility: [facility] Address: [address] [place] [address] Performed By: #### 5 7021-8 ####[facility] LABIA [id number] [place] [address] [place] WBC (Bld) [#/Vol] 8.61 10*3/uL Normal 3.70-11.00 [facility] Comment on above: Order Comment: Speci men Type: BLOOD SPECIMENOrdering Facility: [facility] Address: [address] [place] [address] Performed By: #### 5 7021-8 ####[facility] LABIA [id number] [place] [address] [place] Comprehensive metabolic 2000 panelon 05-15-2024 Albumin [Mass/Vol] 4.7 g/dL 3.9 - 4.9 g/dL [facility] ALP [Catalytic activity/Vol] 131 U/L High 38 - 113 U/L [facility] ALT [Catalytic activity/Vol] 36 U/L 10 - 54 U/L [facility] Anion gap [Moles/Vol] 14 mmol/L 8 - 15 mmol/L [facility] AST [Catalytic activity/Vol] 20 U/L 14 - 40 U/L [facility] Bilirubin [Mass/Vol] 0.3 mg/dL 0.2 - 1 .3 mg/dL [facility] Calcium [Mass/Vol] 9.8 mg/dL 8.5 - 10. 2 mg/dL [facility] Chloride [Moles/Vol] 106 mmol/L 98 - 10 7 mmol/L [facility] CO2 [Moles/Vol] 23 mmol/L 22 - 30 mmol/L [facility] Creatinine [Mass/Vol] 1.19 mg/dL 0.73 - 1.22 mg/dL [facility] GFR/1.73 sq M.predicted among non-blacks MDRD (S/P/Bld) [Vol rate/Area] 78 mL/min/{1.73_m2} - PINF [facility] Comment on above: Estimated Glomerular Filtration Rate (eGFR) is calculated using the 2020 CKD-EPI creatinine equation. This equation utilizes serum creatinine, sex, and age as parameters. The creatinine assay has traceable calibration to isotope dilution-mass spectrometry. Refer to KDIGO guidelines for clinical interpretation. In patients with unstable renal function, e.g. those with acute kidney injury, the eGFR may not accurately reflect actual GFR. Glucose [Mass/Vol] 99 mg/dL 74 - 99 mg/dL [facility] Comment on above: The [place] Di[employer] Association (ADA) provides guidance for cutoff values for fasting glucose and random glucose. The ADA defines fasting as no caloric intake for at least 8 hours. Fasting plasma glucose results between 100 to 125 mg/dL indicate increased risk for diabetes (prediabetes). Fasting plasma glucose results greater than or equal to 126 mg/dL meet the criteria for diagnosis of diabetes. In the absence of unequivocal hyperglycemia, results should be confirmed by repeat testing. In a patient with classic symptoms of hyperglycemia or hyperglycemic crisis, random plasma glucose results greater than or equal to 200 mg/dL meet the criteria for diagnosis of diabetes. Reference: Standards of Medical Care in Diabetes 2016, [place] [employer]. Diabetes Care. 2016.39(Suppl 1). Interpretation and review of laboratory results Abnormal [facility] Potassium [Moles/Vol] 4.3 mmol/L 3.7 - 5.1 mmol/L [facility] Protein [Mass/Vol] 7.6 g/dL 6.3 - 8.0 g/dL [facility] Sodium [Moles/Vol] 143 mmol/L 136 - 144 mmol/L [facility] Urea nitrogen [Mass/Vol] 20 mg/dL 9 - 24 mg/dL [facility] Albumin [Mass/Vol] 4.7 g/dL Normal 3.9-4.9 [facility] Comment on above: Order Comment: Speci men Type: BLOOD SPECIMENOrdering Facility: [facility] Address: [address] [place] [address] Performed By: #### 2 4323-8 ####[facility] LABCLIA [id number] [place] [address] [place] ALP [Catalytic activity/Vol] 131 U/L High 38-113 [facility] Comment on above: Order Comment: Speci men Type: BLOOD SPECIMENOrdering Facility: [facility] Address: [address] [place] [address] Performed By: #### 2 4323-8 ####[facility] LABCLIA [id number] [place] [address] [place] ALT [Catalytic activity/Vol] 36 U/L Normal 10-54 [facility] Comment on above: Order Comment: Speci men Type: BLOOD SPECIMENOrdering Facility: [facility] Address: [address] [place] [address] Performed By: #### 2 4323-8 ####[facility] LABCLIA [id number] [place] [address] [place] Anion gap [Moles/Vol] 14 mmol/L Normal 8-15 [facility] Comment on above: Order Comment: Speci men Type: BLOOD SPECIMENOrdering Facility: [facility] Address: [address] [place] [address] Performed By: #### 2 4323-8 ####[facility] LABCLIA [id number] [place] [address] [place] AST [Catalytic activity/Vol] 20 U/L Normal 14-40 [facility] Comment on above: Order Comment: Speci men Type: BLOOD SPECIMENOrdering Facility: [facility] Address: [address] [place] [address] Performed By: #### 2 4323-8 ####[facility] LABCLIA [id number] [place] [address] [place] Bilirubin [Mass/Vol] 0.3 mg/dL Normal 0.2-1.[address] [facility] Comment on above: Order Comment: Speci men Type: BLOOD SPECIMENOrdering Facility: [facility] Address: [address] [place] [address] Performed By: #### 2 4323-8 ####[facility] LABCLIA [id number] [place] [address] [place] Calcium [Mass/Vol] 9.8 mg/dL Normal 8.5-10.2 [facility] Comment on above: Order Comment: Speci men Type: BLOOD SPECIMENOrdering Facility: [facility] Address: [address] [place] [address] Performed By: #### 2 4323-8 ####[facility] LABCLIA [id number] [place] [address] [place] Chloride [Moles/Vol] 106 mmol/L Normal 98-107 [facility] Comment on above: Order Comment: Speci men Type: BLOOD SPECIMENOrdering Facility: [facility] Address: [address] [place] [address] Performed By: #### 2 4323-8 ####[facility] LABCLIA [id number] [place] [address] [place] CO2 [Moles/Vol] 23 mmol/L Normal 22-30 [facility] Comment on above: Order Comment: Speci men Type: BLOOD SPECIMENOrdering Facility: [facility] Address: [address] [id number] Performed By: #### 2 4323-8 ####[facility] LABIA [id number] [place] [address] [place] Creatinine [Mass/Vol] 1.19 mg/dL Normal 0.73-1.22 [facility] Comment on above: Order Comment: Specsteven men Type: BLOOD SPECIMENOrdering Facility: [facility] Address: [address] [place] [address] Performed By: #### 2 4323-8 ####[facility] LABIA [id number] [place] [address] [place] [facility] Creatinine and Glomerular filtration rate.predicted panel (S/P/Bld) 78 mL/min/1.73m??? Normal >=60 [facility] Comment on above: Order Comment: Kaylene katz Type: BLOOD SPECIMENOrdering Facility: [facility] Address: [address] [place] [address] Result Comment: Silvia mated Glomerular Filtration Rate (eGFR) is calculated using the 2020 CKD-EPI creatinine equation. This equation utilizes serum creatinine, sex, and age as parameters. The creatinine assay has traceable calibration to isotope dilution-mass spectrometry. Refer to KDIGO guidelines for clinical interpretation. In patients with unstable renal function, e.g. those with acute kidney injury, the eGFR may not accurately reflect actual GFR. Performed By: #### 2 4323-8 ####[facility] LABIA [id number] [place] [address] [place] Glucose [Mass/Vol] 99 mg/dL Normal 74-99 [facility] Comment on above: Order Comment: Nikoi men Type: BLOOD SPECIMENOrdering Facility: [facility] Address: [address] [place] [address] Result Comment: The [place] Diabetes Association (ADA) provides guidance for cutoff values for fasting glucose and random glucose. The ADA defines fasting as no caloric intake for at least 8 hours. Fasting plasma glucose results between 100 to 125 mg/dL indicate increased risk for diabetes (prediabetes). Fasting plasma glucose results greater than or equal to 126 mg/dL meet the criteria for diagnosis of diabetes. In the absence of unequivocal hyperglycemia, results should be confirmed by repeat testing. In a patient with classic symptoms of hyperglycemia or hyperglycemic crisis, random plasma glucose results greater than or equal to 200 mg/dL meet the criteria for diagnosis of diabetes. Reference: Standards of Medical Care in Diabetes 2016, [place] [employer]. Diabetes Care. 2016.39(Suppl 1). Performed By: #### 2 4323-8 ####[facility] LABCLIA [id number] [place] [address] [place] Potassium [Moles/Vol] 4.3 mmol/L Normal 3.7-5.1 [facility] Comment on above: Order Comment: Speci men Type: BLOOD SPECIMENOrdering Facility: [facility] Address: [address] [place] [address] Performed By: #### 2 4323-8 ####[facility] LABCLIA [id number] [place] [address] [place] Protein [Mass/Vol] 7.6 g/dL Normal 6.3-8.0 [facility] Comment on above: Order Comment: Speci men Type: BLOOD SPECIMENOrdering Facility: [facility] Address: [address] [place] [address] Performed By: #### 2 4323-8 ####[facility] LABCLIA [id number] [place] [address] [place] Sodium [Moles/Vol] 143 mmol/L Normal 136-144 [facility] Comment on above: Order Comment: Speci men Type: BLOOD SPECIMENOrdering Facility: [facility] Address: [address] [place] [address] Performed By: #### 2 4323-8 ####[facility] LABCLIA [id number] [place] [address] [place] Urea nitrogen [Mass/Vol] 20 mg/dL Normal 9-24 [facility] Comment on above: Order Comment: Speci men Type: BLOOD SPECIMENOrdering Facility: [facility] Address: [address] [place] [address] Performed By: #### 2 4323-8 ####[facility] LABCLIA [id number] [id number] [id number] [place] HISTORY PHYSICALon HISTORY PHYSICAL HNO ID: [id number] Author: IGOR QUIJANO APRN.GRAIN DRIER Service: ? Author Type: Nurse Practitioner Type: H&P Filed: 05/19/2024 12:17 Note Text: [facility] HISTORY AND PHYSICAL EXAMINATION SERVICE DATE: 05/15/2024 SERVICE TIME: 12:16 PM PRIMARY CARE PHYSICIAN: Conor Pantoja MD Assessment Patient has the following medical conditions which may affect macie-operative course: Primary hypertension Assessment: controlled on rx Last 14 BP Last 14 Encounter BP Readings: Date: BP: 05/15/2024 118/80 04/17/2024 147/92 02/17/2024 121/80 01/19/2024 130/80 12/29/2023 132/78 12/06/2023 141/93 11/22/2023 132/90 09/17/2023 113/72 08/20/2023 126/80 07/16/2023 122/77 05/27/2023 141/87 05/26/2023 126/71 04/14/2023 123/85 02/08/2023 [not assessed today[ Mixed hyperlipidemia Assessment: diet controlled Enlarged thoracic aorta (HCC) Assessment: borderline dilated 3.8cm 12/27/2023 echo 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 Shape of flow volume loop shows obstruction. Lung volumes are normal. Electronically Signed On 01-21-2024 15:12:02 EDT by Anny Manuel MD Pulmonary nodules Assessment: under surveillance, unchanged Anxiety and depression Assessment: stable on rx per pt Former smoker Assessment: vague hx given Obesity, Class II, BMI 35-39.9 Assessment: Body mass index is 36.03 kg/m?. Gonzalez Activity Status Index: METS: Climb a flight of stairs or walk up a hill (5.50 METs) DASI Score: 5.5 Patient denies any chest pain or undue shortness of breath with the above physical activity. Clinical Frailty Scale: 3. Well, with treated comorbid disease STOP-Bang Score: Snores loudly Has or is being treated for high blood pressure BMI greater than 35 kg/m2 Has a large neck Male patient Denies feeling tired, fatigued, or sleepy during the daytime Has not been observed to stop breathing or choking/gasping during sleep Patient 50 years old or younger STOP-Bang Score: 5 [id number] Score: Age: <65 Sex: male CHF history: No Hypertension history: Yes Stroke/TIA/thromboembolism history: No Vascular disease history: No Diabetes history: No [id number] Score: 1 ARISCAT Score: Age: <=50 Preoperative SpO2: >=96% Respiratory infection in the last month: No Preoperative anemia: No Surgical incision: peripheral Duration of surgery: 2-3 hrs Emergency procedure: No ARISCAT Score: 16 ANESTHESIA FINDINGS: Intubation History: No history of difficult intubation Significant Anesthesia Considerations: none Airway History: No history of difficult airway I - PHYSICAL EVALUATION AIRWAY Patient intubated: No. Tracheostomy tube not present Mallampati: II. TM distance: >3 FB. Neck ROM: full ROM without neurological symptoms. Mouth opening: adequate. Short neck: no. Thick neck: yes Camacho present: yes Lip Bite Test: I Microretrognathia/Micronag thia/Recessed Chin: No DENTAL Dental findings: teeth intact. II - ANESTHESIA PLAN Anesthetic Plan: other Beta Gloria Monitoring Plan Post Procedure Analgesic Plan Prepared for Surgery: optimally prepared for surgery. Labs-reviewed, okay to proceed-JL CONSULTS: Patient does not require consults for optimization at this time Planned Anesthetic: other anesthesia choice The Following Tests/Procedures Have Been Initiated: Orders Placed This Encounter >CBC + AUTO DIFF Standing Status: Future Number of Occurrences: 1 Standing Expiration Date: 08/14/2024 >CMP Standing Status: Future Number of Occurrences: 1 Standing Expiration Date: 08/14/2024 REASON FOR VISIT: Jaime Vega is a 43 year old male who is scheduled for Procedure(s) with comments: LAMINECTOMY DISCECTOMY LUMBAR LEVEL 1 (Right) - Right L4-5 microdiscectomy at the request of Dr. Debora Baldwin for consultation. My final recommendation will be communicated back to the requesting physician by way of shared medical record or letter. Subjective The patient has the following: COVID-19 Immunization Status Overdue - Covid-19 Vaccine () Never done 11/22/2023 Postponed until 11/21/2024 by Conor Pantoja MD (Declined at this time) CHIEF COMPLAINT: Pre-op exam HPI: Jaime Vega is a 43 year old seen for PAC due to scheduled above surgery because of lumbar spinal stenosis. 04/17/2024, Dr. Mishel Brown HISTORY OF PRESENT ILLNESS: Jaime Vega is a 43 year old male presenting alone. CHIEF COMPLAINT: lower back pain with radiation into right leg into top of foot PRECIPITATING EVENT: Injury at home. DURATION OF SYMPTOMS: Greater Than 1 Year Complaints of lower back pain with (more content not included)... Normal [facility] MR Lumbar spine WO contrasto n 05-15-2024 * * *Final Report* * * DATE OF EXAM: May 15 2024 2:45PM [facility] 0303 - MRI LUMBAR SPINE WO IVCON / PROCEDURE REASON: Spinal stenosis of lumbar region with neurogenic claudication * * * * Physician Interpretation * * * * EXAMINATION: MRI LUMBAR SPINE WO IVCON CLINICAL HISTORY: Spinal stenosis of lumbar region with neurogenic claudication TECHNIQUE: Routine lumbosacral spine MR protocol without gadolinium. MQ: [id number]_3 COMPARISON: MRI lumbar spine 05/20/2023 RESULT: Counting reference: Lumbosacral junction. For the purposes of this report, L4-5 is considered the level of the iliac crest and there are 5 lumbar-type vertebrae. Anatomic variant: Transitional L5 vertebra. Localizer images: No additional findings. Alignment: Alignment is anatomic. Bone marrow signal/fracture: Chronic degenerative marrow signal changes are present within the L4 and L5 vertebral bodies surrounding the L4-L5 disc space. No evidence of prior fracture. Conus: The conus is within normal limits of signal intensity and morphology. Paraspinal soft tissues: Paraspinal soft tissues are within normal limits. Lower thoracic spine: Visualized lower thoracic canal and foramina are patent. L1-L2: Minimal degenerative disc and facet disease without canal or foraminal stenosis. L2-L3: Minimal degenerative disc and facet disease without canal or foraminal stenosis. L3-L4: Mild degenerative disc and facet disease resulting in minimal left foraminal narrowing and no substantial canal stenosis. L4-L5: Moderate degenerative disc disease with posterior broad-based disc bulge and endplate osteophytic ridging as well as superimposed complex multifocal right and left lateral recess disc extrusion as well as mild bilateral degenerative facet hypertrophy and ligamentum flavum thickening resulting in advanced narrowing of the lateral recesses with crowding/compression of the bilateral descending L5 nerve roots, moderate to advanced central stenosis, as well as moderate left and mild right foraminal stenosis. L5-S1: Mild degenerative disc and facet disease without substantial canal or foraminal stenosis. Sacrum and iliac wings: The visualized sacrum and iliac wings are within normal limits. DIVISION OF RADIOLOGY Provider, [facility] - 05/15/2024 * * *Final Report* * * DATE OF EXAM: May 15 2024 2:45PM [facility] 0303 - MRI LUMBAR SPINE WO IVCON / PROCEDURE REASON: Spinal stenosis of lumbar region with neurogenic claudication * * * * Physician Interpretation * * * * EXAMINATION: MRI LUMBAR SPINE WO IVCON CLINICAL HISTORY: Spinal stenosis of lumbar region with neurogenic claudication TECHNIQUE: Routine lumbosacral spine MR protocol without gadolinium. MQ: [id number]_3 COMPARISON: MRI lumbar spine 05/20/2023 RESULT: Counting reference: Lumbosacral junction. For the purposes of this report, L4-5 is considered the level of the iliac crest and there are 5 lumbar-type vertebrae. Anatomic variant: Transitional L5 vertebra. Localizer images: No additional findings. Alignment: Alignment is anatomic. Bone marrow signal/fracture: Chronic degenerative marrow signal changes are present within the L4 and L5 vertebral bodies surrounding the L4-L5 disc space. No evidence of prior fracture. Conus: The conus is within normal limits of signal intensity and morphology. Paraspinal soft tissues: Paraspinal soft tissues are within normal limits. Lower thoracic spine: Visualized lower thoracic canal and foramina are patent. L1-L2: Minimal degenerative disc and facet disease without canal or foraminal stenosis. L2-L3: Minimal degenerative disc and facet disease without canal or foraminal stenosis. L3-L4: Mild degenerative disc and facet disease resulting in minimal left foraminal narrowing and no substantial canal stenosis. L4-L5: Moderate degenerative disc disease with posterior broad-based disc bulge and endplate osteophytic ridging as well as superimposed complex multifocal right and left lateral recess disc extrusion as well as mild bilateral degenerative facet hypertrophy and ligamentum flavum thickening resulting in advanced narrowing of the lateral recesses with crowding/compression of the bilateral descending L5 nerve roots, moderate to advanced central stenosis, as well as moderate left and mild right foraminal stenosis. L5-S1: Mild degenerative disc and facet disease without substantial canal or foraminal stenosis. Sacrum and iliac wings: The visualized sacrum and iliac wings are within normal limits. IMPRESSION IMPRESSION: Progressive degenerative changes most pronounced at L4-L5 with irregular multifocal posterior disc herniation contributing to advanced lateral recess stenosis with crowding/compression of the bilateral descending L5 nerve roots, moderate to advanced central stenosis, as well as moderate left foraminal stenosis at this level. Recommend neurosurgical evaluation. Anatomic Lumbar Variant: Transitional L5 vertebra. L4-5 is considered the level of the iliac crest and there are 5 lumbar-type vertebrae. Optical Advisor: PSCB Transcribe Date/Time: May 15 2024 2:50P Dictated by : MOJGAN MENDOZA MD This examination was interpreted and the report reviewed and electronically signed by: MOJGAN MENDOZA MD on May 15 2024 2:56PM EST [facility] Radiology Study observation (narrative) [facility] MR Lumbar spine WO contrastO rdered By: [facility] Provider on 05-15-2024 [facility] MRI LUMBAR SPINE WO IVCONon 05-15-2024 MRI LUMBAR SPINE WO IVCON * * *Final Report* * * DATE OF EXAM: May 15 2024 2:45PM [facility] 0303 - MRI LUMBAR SPINE WO IVCON / PROCEDURE REASON: Spinal stenosis of lumbar region with neurogenic claudication * * * * Physician Interpretation * * * * EXAMINATION: MRI LUMBAR SPINE WO IVCON CLINICAL HISTORY: Spinal stenosis of lumbar region with neurogenic claudication TECHNIQUE: Routine lumbosacral spine MR protocol without gadolinium. MQ: [id number]_3 COMPARISON: MRI lumbar spine 05/20/2023 RESULT: Counting reference: Lumbosacral junction. For the purposes of this report, L4-5 is considered the level of the iliac crest and there are 5 lumbar-type vertebrae. Anatomic variant: Transitional L5 vertebra. Localizer images: No additional findings. Alignment: Alignment is anatomic. Bone marrow signal/fracture: Chronic degenerative marrow signal changes are present within the L4 and L5 vertebral bodies surrounding the L4-L5 disc space. No evidence of prior fracture. Conus: The conus is within normal limits of signal intensity and morphology. Paraspinal soft tissues: Paraspinal soft tissues are within normal limits. Lower thoracic spine: Visualized lower thoracic canal and foramina are patent. L1-L2: Minimal degenerative disc and facet disease without canal or foraminal stenosis. L2-L3: Minimal degenerative disc and facet disease without canal or foraminal stenosis. L3-L4: Mild degenerative disc and facet disease resulting in minimal left foraminal narrowing and no substantial canal stenosis. L4-L5: Moderate degenerative disc disease with posterior broad-based disc bulge and endplate osteophytic ridging as well as superimposed complex multifocal right and left lateral recess disc extrusion as well as mild bilateral degenerative facet hypertrophy and ligamentum flavum thickening resulting in advanced narrowing of the lateral recesses with crowding/compression of the bilateral descending L5 nerve roots, moderate to advanced central stenosis, as well as moderate left and mild right foraminal stenosis. L5-S1: Mild degenerative disc and facet disease without substantial canal or foraminal stenosis. Sacrum and iliac wings: The visualized sacrum and iliac wings are within normal limits. IMPRESSION: Progressive degenerative changes most pronounced at L4-L5 with irregular multifocal posterior disc herniation contributing to advanced lateral recess stenosis with crowding/compression of the bilateral descending L5 nerve roots, moderate to advanced central stenosis, as well as moderate left foraminal stenosis at this level. Recommend neurosurgical evaluation. Anatomic Lumbar Variant: Transitional L5 vertebra. L4-5 is considered the level of the iliac crest and there are 5 lumbar-type vertebrae. Optical Advisor: PSCB Transcribe Date/Time: May 15 2024 2:50P Dictated by : MOJGAN MENDOZA MD This examination was interpreted and the report reviewed and electronically signed by: MOJGAN MENDOZA MD on May 15 2024 2:56PM EST [id number] Normal [facility] 04-24-2024 [facility] Telephone (NSFRVW) -- JAIME VEGA ([id number]) 1980 M Date Time Provider Department 04/24/24 SILAS BROWN NSFRVMonie During your visit today, we recorded the following information about you: Juana Zelaya 04/24/2024 8:19 AM Signed Received call from [facility] pre-access department that office notes from 04/17/[address] Brown in order to move forward with prior authorization for Lumbar MRI. MRI is scheduled for 05/02/2024. Routing to Provider for review. Juana Zelaya Allergies As of Date: 04/24/2024 Noted Allergy Reaction ACETAMINOPHEN-CODEINE 11/26/2015 2 - Rash SEASONAL ALLERGIES 01/05/2017 16 - Unknown Comments: CATS, DOGS, COCKROACHES, MOLDS, TREES, GRASSES, WEEDS AND RAGWEED VERIFIED BY SKIN TESTING SINGULAIR (MONTELUKAST SODIUM) 09/21/2018 14 - Other: See Comments Comments: irritable Date Reviewed: 04/17/2024 Reviewed by: Dustin Brambila PCNA - Fully Assessed Reason for Visit: Insurance Authorization [[id number]] Cmt: MRI Lumbar Spine WO IVCON Prescriptions as of 06/02/2024 - mupirocin (BACTROBAN) 2 % ointment Apply 1/2 ointment with a cotton swab in each nostril 2x daily for five days preop Patient should start on June 01, 2024. - guanFACINE (TENEX) 2 mg tablet - omeprazole (PRILOSEC) 40 mg capsule Take 1 capsule by mouth once daily. - mometasone (ELOCON) 0.1 % cream Apply 1 application to affected area once daily. - amLODIPine (NORVASC) 5 mg tablet Take 1 tablet by mouth once daily. - ciprofloxacin-dexAMETHason e (CIPRODEX) 0.3-0.1 % otic suspension Use 4 Drops in both ears two times a day. - Xuxpqggs-Oxebtl-GR-Thonzon ium (CORTISPORIN-TC) otic suspension Use 3 Drops in the ears four times daily. - ibuprofen (MOTRIN) 600 mg tablet Take 600 mg by mouth once daily as needed for pain (pain). Takes 600-800mg dose - acetaminophen (TYLENOL) 500 mg tablet Take 1,000 mg by mouth as needed for pain. - QELBREE 100 mg capsule, extended release Take 200 mg by mouth every morning. Take a total of 500 mg; two 200 mg and one 100 mg - melatonin 3 mg tablet TAKE 1 TABLET APPROXIMATELY 7PM NIGHTLY. - clotrimazole-betamethasone (LOTRISONE) cream Apply to affected area twice daily. APPLY TO AFFECTED AREA - fluticasone-salmeterol HFA (ADVAIR HFA) 115-21 mcg/actuation inhaler Inhale 2 Puffs as instructed twice daily. Rinse mouth after use. - albuterol (PROVENTIL) 2.5 mg /3 mL (0.083 %) nebulizer solution Use 3 mL via nebulizer every 4 hours as needed for wheezing/shortness of breath. Use over 5-15minutes. - ipratropium-albuterol (DUONEB) 0.5 mg-3 mg(2.5 mg base)/3 mL nebu Inhale 3 mL as instructed every 6 hours as needed (wheezing). - albuterol HFA (VENTOLIN HFA) 90 mcg/actuation inhaler INHALE 2 PUFFS BY MOUTH DIRECTED EVERY 4 HOURS NEEDED FOR WHEEZING OR SHORTNESS OF BREATH - CPAP Initiate Auto PAP @ 5-20 cm of water with humidification. Mask (per patient preference) optional chin strap (if indicated) , filters, tubing, humidifier and lifetime supplies. - fluticasone (FLONASE) 50 mcg/actuation nasal spray Use 2 Sprays in each nostril once daily. - cetirizine (ZYRTEC) 10 mg tablet Take 1 tablet by mouth once daily as needed. Problem List As Of Date 04/24/2024 Noted Resolved Right upper quadrant abdominal pain [R10.11] 08/08/2015 09/21/2018 Nausea [R11.0] 08/08/2015 09/21/2018 Bloating symptom [R14.0] 08/08/2015 09/21/2018 Mild persistent asthma without complication [J4*08/08/2015 Anxiety and depression [F41.9, F32.A] 08/08/2015 Allergic rhinitis due to animal hair and dander*07/22/2017 Allergic rhinitis due to dust mite [J30.89] 07/22/2017 Seasonal allergic rhinitis due to pollen [J30.1]07/22/2017 Seasonal allergic rhinitis due to fungal spores*07/22/2017 Pulmonary nodules [R91.8] 07/05/2018 Family history of colon cancer [Z80.0] 09/21/2018 Chronic midline low back pain without sciatica *03/14/2019 KAI (obstructive sleep apnea) [G47.33] 06/19/2020 Obesity, Class II, BMI 35-39.9 [E66.812] 09/01/2021 VILLEGAS (dyspnea on exertion) [R06.09] 09/01/2021 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) [U07*09/01/2021 Mixed hyperlipidemia [E78.2] 09/01/2021 Nicotine dependence [F17.200] 09/01/2021 Bulging lumbar disc [M51.369] 02/08/2023 Spinal stenosis of lumbar region without neurog*02/08/2023 Primary hypertension [I10] 12/06/2023 Enlarged thoracic aorta (HCC) [I77.89] 12/29/2023 Encounter Status:Closed by JUANA MCRAE on 06/02/24 [facility] CNOVon 04-17-2024 CNOV Office Visit (NSFRVW ) -- JAIME VEGA ([id number]) 1980 M Date Time Provider Department 04/17/24 9:00 AM SILAS BROWN NSFRVW During your visit today, we recorded the following information about you: Pulse Blood pressure Weight Height 95/minute 147/92 111.1 kg 1.753 m Silas Brown MD 05/09/2024 3:58 PM Signed SPINE SURGERY NEW PATIENT This is an in-person visit. PCP: Conor Pantoja MD REFERRING PROVIDER: Risa Steiner PA-C SUBJECTIVE HISTORY OF PRESENT ILLNESS: Jamie Vega is a 43 year old male presenting alone. CHIEF COMPLAINT: lower back pain with radiation into right leg into top of foot PRECIPITATING EVENT: Injury at home. DURATION OF SYMPTOMS: Greater Than 1 Year Complaints of lower back pain with radiation into right leg into top of foot which started 2 years ago when he fell off a ladder. The pain averages around 8 of 10. It is stabbing quality. Sports activity partially with rest. No left sided symptoms. He has had two Injections in the past which did not provide any relief and only lasted for few hours. Denies tobacco use. PAIN EVALUATION 04/15/2024 1249 04/17/2024 0839 Pain Level: -- 8 Pain Location: Back-Lower Back-Lower Description: Aching;Burning;Cramping;Cu tting;Numbness;Pressure;Pu lsating;Radiating;Sharp; Sore;Spasm;Stabbing;Stiffn ess;Tenderness;Throbbing;T ingling Stabbing;Shooting;Burning Duration Amount of Time: 24 -- Duration Units: Weeks -- Frequency: Continuous Continuous Intervention/Comfort measure: Medication;Pillow support;Positioning -- Pain Radiation: to the right leg into right foot. Aggravating Factors: Standing, Walking Alleviating Factors: None Pain Ratio: Pain in the back is greater than in the leg DERMATOMAL DISTRIBUTION: Right: L5 AMBULATORY STATUS: Independent Community Distances ANTIPLATELET OR ANTICOAGULATION STATUS: No PREVIOUS CONSERVATIVE TREATMENTS: PT- 2022 Tylenol Ibuprofen RIGHT L4-5 TFESI - 09/03/2023- no improvement lasted few hours. 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) Mixed Hyperlipidemia Nicotine Dependence Bulging Lumbar Disc Spinal Stenosis of Lumbar Region Without Neurogenic Claudication Primary Hypertension Enlarged Thoracic Aorta (Hcc) PAST MEDICAL HISTORY Diagnosis Date Abdominal pain Anxiety Asthma Depression VILLEGAS (dyspnea on exertion) HTN (hypertension) Mixed hyperlipidemia Obesity Primary cardiomyopathy (HCC) Sleep apnea Spinal stenosis PAST SURGICAL HISTORY Procedure Laterality Date COLONOSCOPY 06/15/2022 repeat in 1 year with MAC COLONOSCOPY FLX DX W/COLLJ SPEC WHEN PFRMD 08/21/2015 Colonoscopy with mac ESOPHAGOGASTRODUODENOSCOPY TRANSORAL DIAGNOSTIC 08/21/2015 EGD with mac PAST SURGICAL HISTORY OF fatty cyst removed from stomach PAST SURGICAL HISTORY OF wisdom teeth FAMILY HISTORY Problem Relation Age of Onset Heart Father Colon Cancer Father other (colitis) Father other (autism) Son GI issues/ear problems/adhd Social History Tobacco Use Smoking status: Never Smokeless tobacco: Former Types: Chew Quit date: 12/15/2023 Vaping Use Vaping status: Never Used Substance Use Topics Alcohol use: No Drug use: No ALLERGIES Allergen Reactions Acetaminophen-Codei* Rash Seasonal Allergies Unknown CATS, DOGS, COCKROACHES, MOLDS, TREES, GRASSES, WEEDS AND RAGWEED VERIFIED BY SKIN TESTING Darren [[place]* Other: See Comments irritable MEDICATIONS: guanFACINE (TENEX) 2 mg tablet omeprazole (PRILOSEC) 40 mg capsule Take 1 capsule by mouth once daily. mometasone (ELOCON) 0.1 % cream Apply 1 application to affected area once daily. amLODIPine (NORVASC) 5 mg tablet Take 1 tablet by mouth once daily. ciprofloxacin-dexAMETHason e (CIPRODEX) 0.3-0.1 % otic suspension Use 4 Drops in both ears two times a day. Pczrwntv-Phmfre-TY-Thonzon ium (CORTISPORIN-TC) otic suspension Use 3 Drops in the ears four times daily. ibuprofen (MOTRIN) 600 mg tablet Take 600 mg by mouth once daily as needed for pain (pain). Takes 600-800mg dose acetaminophen (TYLENOL) 500 mg tablet Take 1,000 mg by mouth as needed for pain. QELBREE 100 mg capsule, extended release Take 200 mg by mouth every morning. Take a total of 500 mg; two 200 mg and one 100 mg melatonin 3 mg tablet TAKE 1 TABLET APPROXIMATELY 7PM NIGHTLY. (more content not included)... Normal [facility] Eduardo 01-20-2024 TIFFANYN Telephone (AGCARDPOB ) -- GARYJAIME ([id number]) 1980 Date Time Provider Department 01/20/24 MAVERICK PENN AGCARDPOB During your visit today, we recorded the following information about you: Mehul Gonzalez LPN 01/20/2024 3:59 PM Signed ----- Message from Maverick Penn APRN.GRAIN DRIER sent at 01/20/2024 3:53 PM EDT ----- Please call the patient and report carotid ultrasound did not reveal any significant stenosis. Maverick Penn APRN.Mehul Neumann LPN 01/20/2024 4:06 PM Signed Left message for Mr Vega requesting return call to [facility] for test results. [facility] phone number provided on message.HEATHER Harris Tera, LPN 01/26/2024 10:58 AM Signed Left message for Mr Vega requesting return call to [facility] for test results. [facility] phone number provided on message.HEATHER Harris Jennifer, LPN 01/26/2024 11:17 AM Signed Patient returned call to [facility] to review test results. Patient verbalizes understanding. Jackelin Morales LPN Allergies As of Date: 01/20/2024 Noted Allergy Reaction ACETAMINOPHEN-CODEINE 11/26/2015 2 - Rash SEASONAL ALLERGIES 01/05/2017 16 - Unknown Comments: CATS, DOGS, COCKROACHES, MOLDS, TREES, GRASSES, WEEDS AND RAGWEED VERIFIED BY SKIN TESTING SINGULAIR (MONTELUKAST SODIUM) 09/21/2018 14 - Other: See Comments Comments: irritable Date Reviewed: 01/20/2024 Reviewed by: Petush, Elsie, RPFT - Fully Assessed Reason for Visit: Results [95] Prescriptions as of 01/26/2024 - mometasone (ELOCON) 0.1 % cream Apply 1 application to affected area once daily. - amLODIPine (NORVASC) 5 mg tablet Take 1 tablet by mouth once daily. - ciprofloxacin-dexAMETHason e (CIPRODEX) 0.3-0.1 % otic suspension Use 4 Drops in both ears two times a day. - Vodcqwei-Vcwfku-NU-Thonzon ium (CORTISPORIN-TC) otic suspension Use 3 Drops in the ears four times daily. - gabapentin (NEURONTIN) 300 mg capsule Take 2 capsules by mouth three times a day for 90 days. - ibuprofen (MOTRIN) 600 mg tablet Take 600 mg by mouth once daily as needed for pain (pain). Takes 600-800mg dose - acetaminophen (TYLENOL) 500 mg tablet Take 1,000 mg by mouth as needed for pain. - QELBREE 100 mg capsule, extended release Take 200 mg by mouth every morning. - omeprazole (PRILOSEC) 40 mg capsule Take 1 capsule by mouth once daily. - melatonin 3 mg tablet TAKE 1 TABLET APPROXIMATELY 7PM NIGHTLY. - clotrimazole-betamethasone (LOTRISONE) cream Apply to affected area twice daily. APPLY TO AFFECTED AREA - guanFACINE (TENEX) 1 mg tablet Take 1 mg by mouth daily at bedtime. - fluticasone-salmeterol HFA (ADVAIR HFA) 115-21 mcg/actuation inhaler Inhale 2 Puffs as instructed twice daily. Rinse mouth after use. - albuterol (PROVENTIL) 2.5 mg /3 mL (0.083 %) nebulizer solution Use 3 mL via nebulizer every 4 hours as needed for wheezing/shortness of breath. Use over 5-15minutes. - ipratropium-albuterol (DUONEB) 0.5 mg-3 mg(2.5 mg base)/3 mL nebu Inhale 3 mL as instructed every 6 hours as needed (wheezing). - albuterol HFA (VENTOLIN HFA) 90 mcg/actuation inhaler INHALE 2 PUFFS BY MOUTH DIRECTED EVERY 4 HOURS NEEDED FOR WHEEZING OR SHORTNESS OF BREATH - CPAP Initiate Auto PAP @ 5-20 cm of water with humidification. Mask (per patient preference) optional chin strap (if indicated) , filters, tubing, humidifier and lifetime supplies. - fluticasone (FLONASE) 50 mcg/actuation nasal spray Use 2 Sprays in each nostril once daily. - cetirizine (ZYRTEC) 10 mg tablet Take 1 tablet by mouth once daily as needed. Problem List As Of Date 01/20/2024 Noted Resolved Right upper quadrant abdominal pain [R10.11] 08/08/2015 09/21/2018 Nausea [R11.0] 08/08/2015 09/21/2018 Bloating symptom [R14.0] 08/08/2015 09/21/2018 Mild persistent asthma without complication [J4*08/08/2015 Anxiety and depression [F41.9, F32.A] 08/08/2015 Allergic rhinitis due to animal hair and dander*07/22/2017 Allergic rhinitis due to dust mite [J30.89] 07/22/2017 Seasonal allergic rhinitis due to pollen [J30.1]07/22/2017 Seasonal allergic rhinitis due to fungal spores*07/22/2017 Pulmonary nodules [R91.8] 07/05/2018 Family history of colon cancer [Z80.0] 09/21/2018 Chronic midline low back pain without sciatica *03/14/2019 KAI (obstructive sleep apnea) [G47.33] 06/19/2020 Obesity, Class II, BMI 35-39.9 [E66.9] 09/01/2021 VILLEGAS (dyspnea on exertion) [R06.09] 09/01/2021 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) [U07*09/01/2021 Mixed hyperlipidemia [E78.2] 09/01/2021 Nicotine dependence [F17.200] 09/01/2021 Bulging lumbar disc [M51.36] 02/08/2023 Spinal stenosis of lumbar region without neurog*02/08/2023 Primary hypertension [I10] 12/06/2023 Enlarged thoracic aorta (HCC) [I77.89] 12/29/2023 Encounter Status:Closed by JACKELIN MORALES on 01/26/24 [facility] Carotid arteries - yisel alba 01-20-2024 Non-Invasive Vascular Laboratory [facility] Carotid Duplex Bilateral/Complete Date of service/time: 01/20/2024 3:12:37 PM Name: JAIME VEGA Date of : 1980 Age: 43 years Gender: M Clinical Indication Dizziness and headaches. TECHNIQUE -------- A carotid duplex ultrasound examination was performed, including grayscale imaging and color Doppler and spectral Doppler examination of the below mentioned arteries. FINDINGS -------- RIGHT SIDE Common carotid artery: Origin: PSV: 109 cm/s. EDV: 13 cm/s. Proximal: PSV: 93 cm/s. EDV: 20 cm/s. Mid: PSV: 90 cm/s. EDV: 20 cm/s. Distal: PSV: 98 cm/s. EDV: 21 cm/s. Internal carotid artery: Origin: PSV: 71 cm/s. EDV: 17 cm/s. Proximal: PSV: 66 cm/s. EDV: 16 cm/s. Mid: PSV: 68 cm/s. EDV: 26 cm/s. Distal: PSV: 54 cm/s. EDV: 24 cm/s. ICA/CCA Ratio: 0.7 External carotid artery: Origin: PSV: 116 cm/s. EDV: 17 cm/s. Subclavian artery: Origin: PSV: 172 cm/s. EDV: 13 cm/s. Innominate artery: PSV: 190 cm/s. EDV: 16 cm/s. Vertebral artery: PSV: 31 cm/s. EDV: 8 cm/s. LEFT SIDE Common carotid artery: Proximal: PSV: 122 cm/s. EDV: 26 cm/s. Mid: PSV: 102 cm/s. EDV: 30 cm/s. Distal: PSV: 93 cm/s. EDV: 23 cm/s. Internal carotid artery: Origin: PSV: 79 cm/s. EDV: 16 cm/s. Proximal: PSV: 68 cm/s. EDV: 20 cm/s. Mid: PSV: 85 cm/s. EDV: 33 cm/s. Distal: PSV: 58 cm/s. EDV: 26 cm/s. Mild heterogeneous plaque at origin. ICA/CCA Ratio: 0.9 External carotid artery: Origin: PSV: 97 cm/s. EDV: 17 cm/s. Subclavian artery: Proximal: PSV: 122 cm/s. EDV: 13 cm/s. Vertebral artery: PSV: 38 cm/s. EDV: 14 cm/s. IMPRESSION RIGHT SIDE Internal carotid artery: 0-19% stenosis. External carotid artery: Patent. Vertebral artery: Patent and antegrade flow noted. Subclavian artery: Patent. LEFT SIDE Internal carotid artery: 20-39% stenosis. Minimal plaque at origin. External carotid artery: Patent. Vertebral artery: Patent and antegrade flow noted. Subclavian artery: Patent. Technologist: Toyin Chapman RVT, [facility] Ordering physician: JU FRENCH Interpreting physician: ELICIA Cunningham DO Final See Link below for Image [facility] ECHOon 12-27-2023 CONCLUSIONS: - Technically difficult exam due to body habitus. - Exam indication: Shortness of Breath - The left ventricle is normal in size. Left ventricular systolic function is normal. EF = 58 5% (2D biplane). Normal left ventricular diastolic function. - The right ventricle is normal in size. Right ventricular systolic function is normal. - There are no significant valvular abnormalities. - The visualized aorta is borderline dilated with a maximal dimension of 3.8 cm. - Exam was compared with the prior echocardiographic exam performed on 09/18/2021, no significant change. * * * Final * * * [facility] Echocardiography Report: Transthoracic Echo [facility] Date of service: 12/27/2023 3:13:42 PM PINNER Ordering physician: RISA CAMPA Indication: Shortness of Breath Technologist: Antoinette Coker [facility] Interpreting physician: Humberto Cárdenas MD PATIENT: Name: JAIME VEGA : 1980 Age: 43 years Gender: M History of hypertension and dyslipidemia. Primary rhythm: sinus. Height: 175.30 cm BSA: 2.34 m Weight: 112.04 kg BMI: 36.5 kg/m Heart rate 74 bpm Technically difficult exam due to body habitus. Color Doppler was utilized to interrogate the cardiac valves assessed and spectral Doppler was utilized to determine the flow velocities and pressure gradients reported in this exam. MEASUREMENTS: Value Indexed Normal Max aortic dimension 3.8 cm Ao < 3.8 Left atrial volume 43 ml (biplane A-L) 19 ml/m Rafy <= 34 LV ID (diastole) 4.7 cm (2D) 2.02 cm/m LV ID (systole) 3.1 cm (2D) 1.32 cm/m IVS, leaflet tips 1.1 cm (2D) Posterior wall thickness 1.1 cm (2D) Left ventricular mass 189 g (2D) 81 g/m LV stroke volume 75 ml (2D biplane) LV end diastolic volume 131 ml (2D biplane) 56.0 ml/m 34<=EDVi<75 LV end systolic volume 56 ml (2D biplane) 23.8 ml/m Ejection Fraction 58 % (2D biplane) EF > 52 FINDINGS: LEFT VENTRICLE The left ventricle is normal in size. Left ventricular systolic function is normal. Normal left ventricular diastolic function. Mitral annular lateral E/e': 6.8. Mitral annular septal E/e': 10.7. Wall Motion: All scored segments are normal. RIGHT VENTRICLE The right ventricle is normal in size. Right ventricular systolic function is normal. RV systolic tissue Doppler velocity is 12.0 cm/s. Tricuspid annular displacement is 1.8 cm. Estimated right ventricular systolic pressure is 25 mmHg consistent with normal pulmonary artery pressures. Estimated right atrial pressure is 3 mmHg based on IVC assessment. LEFT ATRIUM The left atrial cavity is normal in size. Pulmonary Veins: The pulmonary venous pattern showed blunted systolic flow. RIGHT ATRIUM The right atrial cavity is normal in size. Inferior Vena Cava: The inferior vena cava appears normal measuring 1.4 cm. The vessel decreases greater than 50 percent with inspiration. MITRAL VALVE The mitral valve leaflets are structurally normal. There is no mitral stenosis. There is no mitral valve regurgitation. The pressure half time is 48 msec. The peak mitral E/A ratio is 1.00. The average mitral E/e' ratio is 8.8. The mitral flow deceleration time is 164 msec. TRICUSPID VALVE The tricuspid valve leaflets are structurally normal. There is trace (trace - 1+) tricuspid valve regurgitation. AORTIC VALVE The aortic valve cusps are structurally normal. There is no aortic valve stenosis. There is no aortic valve regurgitation. Tricuspid aortic valve. The peak gradient is 8 mmHg (peak velocity = 143.1 cm/s). PULMONIC VALVE The pulmonic valve cusps are structurally normal. There is trace pulmonic valve regurgitation. AORTA The visualized aorta is borderline dilated. Measurements - Mid ascending aorta 3.8 cm. PERICARDIUM There is no pericardial effusion. There is an epicardial fat pad. [facility] MR Brain WO and W contrast I Von 12-27-2023 IMPRESSION: Normal MRI of the brain. Optical Advisor: CARLOS Transcribe Date/Time: Dec 27 2023 4:02P Dictated by : MOJGAN MENDOZA MD This examination was interpreted and the report reviewed and electronically signed by: MOJGAN MENDOZA MD on Dec 27 2023 4:07PM [facility] DIVISION OF RADIOLOGY * * *Final Report* * * DATE OF EXAM: Dec 27 2023 3:05PM [facility] 0295 - MRI BRAIN WO/W IVCON / PROCEDURE REASON: multiple diagnoses * * * * Physician Interpretation * * * * EXAMINATION: MRI BRAIN WO/W IVCON CLINICAL HISTORY: Headache TECHNIQUE: Routine brain MRI protocol without and with contrast including diffusion images. MQ: [id number] Contrast: 20 mL Dotarem IV COMPARISON: None. RESULT: Acute Change: There is no evidence of restricted diffusion to suggest an acute infarct. Hemorrhage: No evidence of intraparenchymal hemorrhage. Mass Lesion/ Mass Effect: No evidence of an intracranial mass or extra-axial fluid collection. No abnormal parenchymal or leptomeningeal enhancement is noted following contrast administration. No mass effect. Chronic Change: The white matter is within normal limits of signal intensity for age. Parenchyma: No significant volume loss for age. The brain parenchyma is otherwise within normal limits of signal intensity and morphology. Ventricles: Normal caliber and morphology. Skull Base: Hypothalamic and pituitary region are grossly normal. Craniocervical junction is normal. No significant marrow replacement process. Vasculature: The major intracranial arteries and dural venous sinuses are patent. Other: The visualized paranasal sinuses and mastoid air cells are clear. The orbits and extracranial soft tissues are unremarkable. DIVISION OF RADIOLOGY Provider, Ellie Almazan - 12/27/2023 * * *Final Report* * * DATE OF EXAM: Dec 27 2023 3:05PM [facility] 0295 - MRI BRAIN WO/W IVCON / PROCEDURE REASON: multiple diagnoses * * * * Physician Interpretation * * * * EXAMINATION: MRI BRAIN WO/W IVCON CLINICAL HISTORY: Headache TECHNIQUE: Routine brain MRI protocol without and with contrast including diffusion images. MQ: [id number] Contrast: 20 mL Dotarem IV COMPARISON: None. RESULT: Acute Change: There is no evidence of restricted diffusion to suggest an acute infarct. Hemorrhage: No evidence of intraparenchymal hemorrhage. Mass Lesion/ Mass Effect: No evidence of an intracranial mass or extra-axial fluid collection. No abnormal parenchymal or leptomeningeal enhancement is noted following contrast administration. No mass effect. Chronic Change: The white matter is within normal limits of signal intensity for age. Parenchyma: No significant volume loss for age. The brain parenchyma is otherwise within normal limits of signal intensity and morphology. Ventricles: Normal caliber and morphology. Skull Base: Hypothalamic and pituitary region are grossly normal. Craniocervical junction is normal. No significant marrow replacement process. Vasculature: The major intracranial arteries and dural venous sinuses are patent. Other: The visualized paranasal sinuses and mastoid air cells are clear. The orbits and extracranial soft tissues are unremarkable. IMPRESSION IMPRESSION: Normal MRI of the brain. Optical Advisor: PSCB Transcribe Date/Time: Dec 27 2023 4:02P Dictated by : MOJGAN MENDOZA MD This examination was interpreted and the report reviewed and electronically signed by: MOJGAN MENDOZA MD on Dec 27 2023 4:07PM EST [facility] Radiology Study observation (narrative) [facility] MR Brain WO and W contrast I VOrdered By: [facility] Provider on 12-27-2023 [facility] CBC W Auto Differential pane l (Bld)on 11-22-2023 Basophils (Bld) [#/Vol] 0.07 10*3/uL NINF [facility] Basophils/100 WBC (Bld) 0.8 % [facility] Differential cell count method Nom (Bld) Auto [facility] Eosinophils (Bld) [#/Vol] 0.11 10*3/uL [facility] Eosinophils/100 WBC (Bld) 1.3 % [facility] Erythrocyte distribution width (RBC) [Ratio] 13.5 % 11.5 - 15.0 % [facility] Hematocrit (Bld) [Volume fraction] 45.1 % 39.0 - 51.0 % [facility] Hemoglobin (Bld) [Mass/Vol] 15.1 g/dL 13.0 - 17.0 g/dL [facility] Immature granulocytes (Bld) [#/Vol] [facility] Immature granulocytes/100 WBC (Bld) 0.2 % [facility] Lymphocytes (Bld) [#/Vol] 2.60 10*3/uL [facility] Lymphocytes/100 WBC (Bld) 30.7 % [facility] MCH (RBC) [Entitic mass] 30.1 pg 26.0 - 34.0 pg [facility] MCHC (RBC) [Mass/Vol] 33.5 g/dL 30.5 - 36.0 g/dL [facility] MCV (RBC) [Entitic vol] 89.8 fL 80.0 - 100.0 fL [facility] Monocytes (Bld) [#/Vol] 0.61 10*3/uL [facility] Monocytes/100 WBC (Bld) 7.2 % [facility] Neutrophils (Bld) [#/Vol] 5.05 10*3/uL [facility] Neutrophils/100 WBC (Bld) 59.8 % [facility] Nucleated RBC (Bld) [#/Vol] [facility] Nucleated RBC/100 WBC (Bld) [Ratio] 0.0 % /100 WBC [facility] Platelet mean volume (Bld) [Entitic vol] 11.7 fL 9.0 - 12.7 fL [facility] Platelets (Bld) [#/Vol] 268 10*3/uL [facility] RBC (Bld) [#/Vol] 5.02 10*6/uL 4.20 - 6.0 0 m/uL [facility] WBC (Bld) [#/Vol] 8.46 10*3/uL [facility] HISTORY PHYSICALon 4 HISTORY PHYSICAL HNO ID: [id number] Author: DENG WOLF MD Service: Pain Management Author Type: Physician Type: H&P Filed: 09/03/2023 09:27 Note Text: HISTORY AND PHYSICAL EXAMINATION PATIENT NAME: Jaime Vega DATE of SERVICE: 09/03/2023 Jaime Vega is here for the pain mangement procedure. The patients presents with persistent pain complaints. Jaime Vega denies any interval changes or new pain complaints or focal neurologic deficits. PAST MEDICAL HISTORY Diagnosis Date Abdominal pain Anxiety Asthma Depression Sleep apnea PAST SURGICAL HISTORY Procedure Laterality Date COLONOSCOPY 06/15/2022 repeat in 1 year with MAC COLONOSCOPY FLX DX W/COLLJ SPEC WHEN PFRMD 08/21/2015 Colonoscopy with mac ESOPHAGOGASTRODUODENOSCOPY TRANSORAL DIAGNOSTIC 08/21/2015 EGD with mac PAST SURGICAL HISTORY OF fatty cyst removed from stomach PAST SURGICAL HISTORY OF wisdom teeth Social History Tobacco Use Smoking status: Never Smokeless tobacco: Current Types: Chew Vaping Use Vaping Use: Never used Substance Use Topics Alcohol use: No Drug use: No FAMILY HISTORY Problem Relation Age of Onset Heart Father Colon Cancer Father other (colitis) Father other (autism) Son GI issues/ear problems/adhd ALLERGIES Allergen Reactions Acetaminophen-Codei* Rash Seasonal Allergies Unknown CATS, DOGS, COCKROACHES, MOLDS, TREES, GRASSES, WEEDS AND RAGWEED VERIFIED BY SKIN TESTING Darren [[place]* Other: See Comments irritable No current facility-administered medications for this encounter. Physical Exam: Performed in conjunction with observation. The patient is alert and oriented x3. The patient is in no acute distress. Neck: Supple. The range of motion is intact. Lungs: clear CVR: RRR. Extremities: no reported edema or erythema. Examination indicates no changes Impression: Lumbar foraminal stenosis Plan: The informed consent has been obtained. The plan is to proceed with the procedure as planned. SIGNATURE: Deng Wolf MD DATE: September 03, 2023 TIME: 9:27 AM [facility] OPERATIVE NOon 09-03-2023 OPERATIVE NO HNO ID: [id number] Author: DENG WOLF MD Service: Pain Management Author Type: Physician Type: Operative Report Filed: 09/03/2023 10:12 Note Text: PATIENT NAME: Jaime Vega SERVICE DATE: 09/03/2023 PROCEDURE NOTE PREOPERATIVE DIAGNOSIS(ES) Lumbar radiculopathy Lumbar disc displacement Lumbar canal stenosis without neurogenic claudication Lumbar DDD POSTOPERATIVE DIAGNOSIS(ES): Same PROCEDURE: Right L4-5 lumbar transforaminal epidural steroid injection under fluoroscopy. ANESTHESIA: Conscious sedation with Versed 3mg, Fentanyl 50 mcg. IV INDICATIONS: The patient presents for lumbar transforaminal epidural steroid injection. Since the last assessment, the patient denies any new pain complaints and denies any focal neurological deficits. The risks and benefits of the procedure were discussed. Specifically, the risks of bleeding, infection, inadvertent dural puncture, spinal heaches, vasovagal reaction, epidural hematoma, partial or permanent nerve injury were covered. The potential side effects of medications used in procedures including increase in lumbar pain, headaches, facial redness or warmth (flushing), anxiety or mood swings, sleeplessness, fever, high blood sugar, brief reduction in immunity were discussed. The patient expressed understanding of potential risks and wishes to proceed with the procedure. PROCEDURE NOTE: The patient was brought to the operating room. The patient was placed in the prone position with pressure points protected. Continuous hemodynamic monitoring was initiated including blood pressure, EKG, and pulse oximetry. Supplemental oxygen per nasal canula was started. The intravenous medication was administered incrementally to provide conscious sedation and to allow the patient to remain comfortable and conversant throughout the procedure. The lower back was prepped in sterile fashion. Upon AP projection under a fluoroscopy, the lumbar L4-5 level was identified. The fluoroscopy was rotated in oblique projection to identify the neuroforamen. Entry point was marked and anesthetized with 2ml of 0.25% Marcaine. This was followed by insertion of a 5 inch spinal needle, which was inserted and advanced towards the 12 o' clock of the L4-5 neuroforamen. Once the Needle tip contacted the inferior lateral aspect of the pedicle, aspiration was performed which was negative for blood or CSF. This was followed by injection of 0.2 ml of Omnipaque 300, which revealed a spread through the neuroforamen into the anterior epidural space. There was no evidence of intravascular or intrathecal flow. This was then followed by a total injection of 2 mL of 0.25% Marcaine with 40 mg of Depomedrol. The patient tolerated the procedure well. The needle was removed intact. Dry dressing was placed over the injection site. The patient was taken to the recovery room in stable condition. EBL: nil Start time: 10:03 AM End time: 10:11 AM I was present the entire time and personally performed the procedure. SIGNATURE: Deng Wolf MD DATE: September 03, 2023 TIME: 10:[address] [facility] HISTORY PHYSICALon HISTORY PHYSICAL HNO ID: [id number] Author: DENG WOLF MD Service: Pain Management Author Type: Physician Type: H&P Filed: 06/17/2023 10:21 Note Text: HISTORY AND PHYSICAL EXAMINATION PATIENT NAME: Jaime Vega DATE of SERVICE: 06/17/2023 Jaime Vega is here for the pain mangement procedure. The patients presents with persistent pain complaints. Jaime Vega denies any interval changes or new pain complaints or focal neurologic deficits. PAST MEDICAL HISTORY Diagnosis Date Abdominal pain Anxiety Asthma Depression Sleep apnea PAST SURGICAL HISTORY Procedure Laterality Date COLONOSCOPY 06/15/2022 repeat in 1 year with MAC COLONOSCOPY FLX DX W/COLLJ SPEC WHEN PFRMD 08/21/2015 Colonoscopy with mac ESOPHAGOGASTRODUODENOSCOPY TRANSORAL DIAGNOSTIC 08/21/2015 EGD with mac PAST SURGICAL HISTORY OF fatty cyst removed from stomach PAST SURGICAL HISTORY OF wisdom teeth Social History Tobacco Use Smoking status: Never Smokeless tobacco: Current Types: Chew Vaping Use Vaping Use: Never used Substance Use Topics Alcohol use: No Drug use: No FAMILY HISTORY Problem Relation Age of Onset Heart Father Colon Cancer Father other (colitis) Father other (autism) Son GI issues/ear problems/adhd ALLERGIES Allergen Reactions Acetaminophen-Codei* Rash Seasonal Allergies Unknown CATS, DOGS, COCKROACHES, MOLDS, TREES, GRASSES, WEEDS AND RAGWEED VERIFIED BY SKIN TESTING Darren [[place]* Other: See Comments irritable Current Facility-Administered Medications Medication Dose Route Frequency NaCl 0.9% iv infusion 30 mL/hr INTRAVENOUS CONTINUOUS Physical Exam: Performed in conjunction with observation. The patient is alert and oriented x3. The patient is in no acute distress. Neck: Supple. The range of motion is intact. Lungs: clear CVR: RRR. Extremities: no reported edema or erythema. Examination indicates no changes Impression: Lumbar foraminal stenosis Plan: The informed consent has been obtained. The plan is to proceed with the procedure as planned. SIGNATURE: Deng Wolf MD DATE: June 17, 2023 TIME: 10:20 AM [facility] OPERATIVE NOon 06-17-2023 OPERATIVE NO HNO ID: [id number] Author: DENG WOLF MD Service: Pain Management Author Type: Physician Type: Operative Report Filed: 06/17/2023 10:56 Note Text: PATIENT NAME: Jaime Vega SERVICE DATE: 06/17/2023 PROCEDURE NOTE PREOPERATIVE DIAGNOSIS(ES) Lumbar radiculopathy Lumbar disc displacement Lumbar canal stenosis without neurogenic claudication Lumbar DDD POSTOPERATIVE DIAGNOSIS(ES): Same PROCEDURE: Right L4-5 lumbar transforaminal epidural steroid injection under fluoroscopy. ANESTHESIA: Conscious sedation with Versed 3mg, Fentanyl 50 mcg. IV INDICATIONS: The patient presents for lumbar transforaminal epidural steroid injection. Since the last assessment, the patient denies any new pain complaints and denies any focal neurological deficits. The risks and benefits of the procedure were discussed. Specifically, the risks of bleeding, infection, inadvertent dural puncture, spinal heaches, vasovagal reaction, epidural hematoma, partial or permanent nerve injury were covered. The potential side effects of medications used in procedures including increase in lumbar pain, headaches, facial redness or warmth (flushing), anxiety or mood swings, sleeplessness, fever, high blood sugar, brief reduction in immunity were discussed. The patient expressed understanding of potential risks and wishes to proceed with the procedure. PROCEDURE NOTE: The patient was brought to the operating room. The patient was placed in the prone position with pressure points protected. Continuous hemodynamic monitoring was initiated including blood pressure, EKG, and pulse oximetry. Supplemental oxygen per nasal canula was started. The intravenous medication was administered incrementally to provide conscious sedation and to allow the patient to remain comfortable and conversant throughout the procedure. The lower back was prepped in sterile fashion. Upon AP projection under a fluoroscopy, the lumbar L4-5 level was identified. The fluoroscopy was rotated in oblique projection to identify the neuroforamen. Entry point was marked and anesthetized with 2ml of 0.25% Marcaine. This was followed by insertion of a 5 inch spinal needle, which was inserted and advanced towards the 12 o' clock of the L4-5 neuroforamen. Once the Needle tip contacted the inferior lateral aspect of the pedicle, aspiration was performed which was negative for blood or CSF. This was followed by injection of 0.2 ml of Omnipaque 300, which revealed a spread through the neuroforamen into the anterior epidural space. There was no evidence of intravascular or intrathecal flow. This was then followed by a total injection of 2 mL of 0.25% Marcaine with 40 mg of Depomedrol. The patient tolerated the procedure well. The needle was removed intact. Dry dressing was placed over the injection site. The patient was taken to the recovery room in stable condition. EBL: nil Start time: 10:48 AM End time: 10:53 AM I was present the entire time and personally performed the procedure. SIGNATURE: Deng Wolf MD DATE: June 17, 2023 TIME: 10:56 AM [facility] XR Lumbar spine Views W flex ion and W extensionon 04-20-2023 IMPRESSION: L4-5 dis c space narrowing. Optical Advisor: CARLOS Transcribe Date/Time: Apr 20 2023 9:29A Dictated by : KAMI TAMAYO MD This examination was interpreted and the report reviewed and electronically signed by: KAMI TAMAYO MD on Apr 20 2023 9:32AM [facility] DIVISION OF RADIOLOGY * * *Final Report* * * DATE OF EXAM: Apr 19 2023 5:19PM WOX [id number] - XR LUMBAR 4V AP/LAT/ FLEX/EXT / PROCEDURE REASON: multiple diagnoses * * * * Physician Interpretation * * * * EXAM TITLE: XR LUMBAR 4V AP/LAT/ FLEX/EXT EXAM DATE/TIME: 04/19/2023 5:19 PM COMPARISON: None. CLINICAL INDICATION/HISTORY: Spinal stenosis. TECHNIQUE: AP, lateral, lateral extension, lateral flexion and cone down lateral views of the lumbar spine are presented. FINDINGS: There is a questionable transitional vertebra at the lumbosacral junction. No fracture or subluxations are noted. No change in alignment of the lumbar spine with lateral extension and lateral flexion. L4-5 disc space narrowing is demonstrated. There is no significant osteophyte formation. DIVISION OF RADIOLOGY Provider, [facility] Felicity [facility] - 04/20/2023 * * *Final Report* * * DATE OF EXAM: Apr 19 2023 5:19PM WOX [id number] - XR LUMBAR 4V AP/LAT/ FLEX/EXT / PROCEDURE REASON: multiple diagnoses * * * * Physician Interpretation * * * * EXAM TITLE: XR LUMBAR 4V AP/LAT/ FLEX/EXT EXAM DATE/TIME: 04/19/2023 5:19 PM COMPARISON: None. CLINICAL INDICATION/HISTORY: Spinal stenosis. TECHNIQUE: AP, lateral, lateral extension, lateral flexion and cone down lateral views of the lumbar spine are presented. FINDINGS: There is a questionable transitional vertebra at the lumbosacral junction. No fracture or subluxations are noted. No change in alignment of the lumbar spine with lateral extension and lateral flexion. L4-5 disc space narrowing is demonstrated. There is no significant osteophyte formation. IMPRESSION IMPRESSION: L4-5 disc space narrowing. Optical Advisor: PSCB Transcribe Date/Time: Apr 20 2023 9:29A Dictated by : KAMI TAMAYO MD This examination was interpreted and the report reviewed and electronically signed by: KAMI TAMAYO MD on Apr 20 2023 9:32AM EST [facility] XR Lumbar spine Views W flex ion and W extensionOrdered By: [facility] Provider on 04-20-2023 [facility] -- JAIME VEGA ([id number]) 1980 M Date Time Provider Department 04/19/23 [facility] ARTEAG[facility] AGSPINE3 During your visit today, we recorded the following information about you: Anita Gage 04/19/2023 4:20 PM Signed Received a referral from Risa Steiner PA-C for patient to have Transforaminal Lumbar epidural steroid injection: Right; Level: L4-5 CPT 32165 Imaging- NONE Anticoag- NONE Please review and advise Anita Gage [facility] [address] [place] [address] P: [phone] F: [phone] Princess Arteaga MD 04/20/2023 12:00 PM Signed Fast Track Injection Request: Referring Surgeon: Risa Steiner PA-C Injection Requested: Right L4-5 TFESI Imaging reviewed: CT abd/pelvis, MRI L-spine pending Anti-Coagulants: none Pt will need MRI L-spine completed prior to his R L4-5 TFESI (scheduled for end april). Patient appropriate for the requested procedure. Order placed. Staff informed to assist patient with scheduling. MD PhD Too Gomez Stacey 04/22/2023 10:49 AM Signed Please call patient and let him know we are unable to schedule his injection until he has had his MRI, right now that is not scheduled until 05/20.. Patient may want to see if he can get in somewhere else sooner? Anita Gage [facility] [address] [place] [address] P: [phone] F: [phone] Aníbal Yung PSS 04/22/2023 1:09 PM Signed LVM to call back to advise of message below. Aníbal Yung Ben Bolt to Dr. Arteaga, Dr. Carroll, Taylor Sue PA-C, Workers Compensation [facility] P: [phone] / F: [phone] / Aníbal Yung PSS 04/29/2023 8:27 AM Signed LVM to call back to advise of message below. Aníbal Yung Ben Bolt to Dr. Arteaga, Dr. Carroll, Taylor Sue PA-C, Workers Compensation [facility] P: [phone] / F: [phone] / Allergies As of Date: 04/19/2023 Noted Allergy Reaction ACETAMINOPHEN-CODEINE 11/26/2015 2 - Rash SEASONAL ALLERGIES 01/05/2017 16 - Unknown Comments: CATS, DOGS, COCKROACHES, MOLDS, TREES, GRASSES, WEEDS AND RAGWEED VERIFIED BY SKIN TESTING SINGULAIR (MONTELUKAST SODIUM) 09/21/2018 14 - Other: See Comments Comments: irritable Date Reviewed: 04/14/2023 Reviewed by: Radha Hill MA - Fully Assessed Reason for Visit: Fast Track [Other] Primary Visit Diagnosis:Lumbar radiculopathy [M54.16] Other Visit Diagnosis:Spinal stenosis, lumbar region with neurogenic claudication [M48.062] Order(s):PRE-CERT ORDER (AG) [[id number]] Order #: [id number]: 1 Prescriptions as of 04/29/2023 - atomoxetine (STRATTERA) 40 mg capsule Take 40 mg by mouth once daily. - gabapentin (NEURONTIN) 300 mg capsule Take 2 capsules by mouth three times a day for 90 days. - meloxicam (MOBIC) 15 mg tablet Take 1 tablet by mouth once daily. Take this directly following a meal - clotrimazole-betamethasone (LOTRISONE) cream Apply to affected area twice daily. APPLY TO AFFECTED AREA - atomoxetine (STRATTERA) 25 mg capsule Take 1 capsule by mouth every 12 hours 6am/6pm. - guanFACINE (TENEX) 1 mg tablet Take 1 mg by mouth daily at bedtime. - omeprazole (PRILOSEC) 40 mg capsule Take 1 capsule by mouth once daily. - melatonin 3 mg tablet Take 1 tablet approximately 7PM nightly. - fluticasone-salmeterol HFA (ADVAIR HFA) 115-21 mcg/actuation inhaler Inhale 2 Puffs as instructed twice daily. Rinse mouth after use. - albuterol (PROVENTIL) 2.5 mg /3 mL (0.083 %) nebulizer solution Use 3 mL via nebulizer every 4 hours as needed for wheezing/shortness of breath. Use over 5-15minutes. - ipratropium-albuterol (DUONEB) 0.5 mg-3 mg(2.5 mg base)/3 mL nebu Inhale 3 mL as instructed every 6 hours as needed (wheezing). - albuterol HFA (VENTOLIN HFA) 90 mcg/actuation inhaler INHALE 2 PUFFS BY MOUTH DIRECTED EVERY 4 HOURS NEEDED FOR WHEEZING OR SHORTNESS OF BREATH - CPAP Initiate Auto PAP @ 5-20 cm of water with humidification. Mask (per patient preference) optional chin strap (if indicated) , filters, tubing, humidifier and lifetime supplies. - fluticasone (FLONASE) 50 mcg/actuation nasal spray Use 2 Sprays in each nostril once daily. - cetirizine (ZYRTEC) 10 mg tablet Take 1 tablet by mouth once daily as needed. Problem List As Of Date 04/19/2023 Noted Resolved Right upper quadrant abdominal pain [R10.11] 08/08/2015 09/21/2018 Nausea [R11.0] 08/08/2015 09/21/2018 Bloating symptom [R14.0] 08/08/2015 09/21/2018 Mild persistent asthma without complication [J4*08/08/2015 Anxiety and depression [F41.9, F32.A] 08/08/2015 Allergic rhinitis due to (more content not included)... Normal [facility] XR Lumbar spine Views W flex ion and W extensionon 04-19-2023 Radiology Study observation (narrative) [facility] Abdomen/Pelvis without Conto n 11-27-2022 Abdomen/Pelvis without Cont [facility] Imaging Services [address] [place] [address] Abdomen/Pelvis without Cont MR#: [id number] Acct: [id number] Name: VEGAJAIME Rep #: [id number] : 1980 M 42 From: Ivan Davison PCP: Dr. Conor Pantoja MD Status: REG ER Study: Abdomen/Pelvis without Cont Date of Exam: 12/13 Exam# [id number] Ordering Dr: Jackelin Amaya MD STUDY: CT Abdomen And Pelvis W/O Contrast Injection 11/27/2022 6:02 PM REASON FOR EXAM: Male, 42 years old. ABDOMINAL PAIN flank pain TECHNIQUE: Transaxial images were obtained without oral contrast, and without intravenous contrast. Individualized dose optimization techniques were used for this CT. COMPARISON: None. FINDINGS: The visualized lung bases are unremarkable. The visualized portions of the heart are within normal limits. Unremarkable liver. Unremarkable gallbladder and extrahepatic biliary system. Unremarkable spleen. Unremarkable pancreas. Unremarkable bilateral adrenal glands. No acute findings of the right kidney. No acute findings of the left kidney. Unremarkable visualized stomach. Unremarkable small intestine. Unremarkable colon. The appendix is visualized and appears unremarkable. There are no acute findings of the abdominal aorta. Unremarkable inferior vena cava. Subcentimeter mesenteric lymph nodes. Unremarkable urinary bladder. Unremarkable abdominal wall. Large posterior disc bulge osteophyte complex at L4-5 causing [address] stenosis. CT/Abdomen/Pelvis without Cont IMPRESSION: (NOT LISTED IN ORDER OF SIGNIFICANCE) There are no renal stones. There is no hydronephrosis. Large posterior disc bulge osteophyte complex at L4-5 causing severe spinal stenosis. Other findings as above. Electronically Signed: Ivan Escobedo MD at 18:05 EDT , CC: Dr. Jackelin Amaya MD; Dr. Conor Pantoja MD Optical Advisor: Signed Normal [facility] Absolute lymphocyte countOrd ered By: Jackelin Amaya on 11-27-2022 Lymphocytes Auto (Unsp spec) [#/Vol] 2.75 10*3/uL 0.83-4.51 [facility] Basic Metabolic Profile (BMP )on 11-27-2022 BUN/CRE 12.8 RATIO Normal 10-20 [facility] Comment on above: Performed By: #### L 100.0100, L500.2500 #### [facility] Laboratory [address] [place], [address] CA,Total 9.1 mg/dL Normal 8.5-10.1 [facility] Comment on above: Performed By: #### L 100.0100, L500.2500 #### [facility] [address] [place], [address] Chloride [Moles/Vol] 108 mmol/L High 98-107 [facility] Comment on above: Performed By: #### L 100.0100, L500.2500 #### [facility] [address] [place], [address] CO2 [Moles/Vol] 25.0 mmol/L Normal 21.0-32.0 [facility] Comment on above: Performed By: #### L 100.0100, L500.2500 #### [facility] [address] [place], [address] Creatinine [Mass/Vol] 1.17 mg/dL Normal 0.70-1.30 [facility] Comment on above: Result Comment: The validity of the calculated GFR GFRAA in patients over 70 years has not been determined. Clinical correlation is essential. Performed By: #### L 100.0100, L500.2500 #### [facility] [address] [place], [address] ECRCL 82.25 ml/min Normal [facility] Comment on above: Performed By: #### L 100.0100, L500.2500 #### [facility] [address] [place], [address] EST GFR - AA 88 mL/min Normal >60 [facility] Comment on above: Result Comment: Afri can Jamaican GFR Calc Performed By: #### L 100.0100, L500.2500 #### [facility] [address] [place], [address] GAP 7 Normal 5-15 [facility] Comment on above: Performed By: #### L 100.0100, L500.2500 #### [facility] [address] [place], [address] GFR/1.73 sq M.predicted among non-blacks MDRD (S/P/Bld) [Vol rate/Area] 73 mL/min/{1.73_m2} Normal >60 [facility] Comment on above: Result Comment: Non- GFR Calc Performed By: #### L 100.0100, L500.2500 #### [facility] [address] [place], [address] Glucose [Mass/Vol] 104 mg/dL Normal 74-106 [facility] Comment on above: Result Comment: Fast ing Glucose result from 100 to 125 mg/dL suggests IMPAIRED HOMEOSTASIS per A.D.A. criteria. Performed By: #### L 100.0100, L500.2500 #### [facility] [address] [place], [address] Potassium [Moles/Vol] 3.9 mmol/L Normal 3.5-5.1 [facility] Comment on above: Performed By: #### L 100.0100, L500.2500 #### [facility] [address] [place], [address] Sodium [Moles/Vol] 140 mmol/L Normal 136-145 [facility] Comment on above: Performed By: #### L 100.0100, L500.2500 #### [facility] [address] [place], [address] Urea nitrogen [Mass/Vol] 15 mg/dL Normal 7-18 [facility] Comment on above: Performed By: #### L 100.0100, L500.2500 #### [facility] [address] [place], [address] Basophil percentageOrdered B y: Jackelin Amaya on 11-27-2022 Basophils/100 WBC (Bld) 0.5 % 0-1 [facility] Chloride [Moles/Vol] 108 mmol/L 98-107 [facility] Eosinophils/100 WBC (Bld) 1.9 % 0-5 [facility] Glucose [Mass/Vol] 104 mg/dL 74-106 [facility] Comment on above: Fasting Glucose resu lt from 100 to 125 mg/dL suggests IMPAIRED HOMEOSTASIS per A.D.A. criteria. Neutrophils (Bld) [#/Vol] 5.6 10*3/uL 2.0-7.7 [facility] Neutrophils/100 WBC (Bld) 59.9 % 47-70 [facility] Potassium [Moles/Vol] 3.9 mmol/L 3.5-5.1 [facility] Sodium [Moles/Vol] 140 mmol/L 136-145 [facility] WBC (Bld) [#/Vol] 9.3 10*3/uL 4.4-11.0 [facility] Basophil percentage 0 SEEN /hpf 0-5 [facility] Bilirubin Test strip Ql (U)O rdered By: Jackelin Amaya on 11-27-2022 Bilirubin Ql (U) Negative Negative [facility] Blood erythrocytes count (nu mber/volume)Ordered By: Jackelin Amaya on 11-27-2022 RBC (Bld) [#/Vol] 5.11 10*6/uL 4.6-6.2 [facility] Blood hemoglobin measurement (mass/volume)Ordered By: Jackelin Amaya on 11-27-2022 Hemoglobin (Bld) [Mass/Vol] 15.2 g/dL 13.0-16.5 [facility] Blood lymphocytes/100 leukoc ytesOrdered By: Jackelin Amaya on 11-27-2022 Lymphocytes/100 WBC (Bld) 29.6 % 19-41 [facility] Blood monocytes/100 leukocyt esOrdered By: Jackelin Amaya on 11-27-2022 Monocytes/100 WBC (Bld) 7.8 % 0-10 [facility] Blood platelet mean volumeOr dered By: Jackelin Amaya on 11-27-2022 Platelet mean volume (Bld) [Entitic vol] 11.4 fL 6.2-12.0 [facility] CBC W/Diff, Automatedon Absolute Lymph 2.75 X10 3/uL Normal 0.83-4.51 [facility] Comment on above: Performed By: #### L 100.0100, L500.2500 #### [facility] [address] [place], [place], [id number] Absolute Neut 5.6 X10 3/uL Normal 2.0-7.7 [facility] Comment on above: Performed By: #### L 100.0100, L500.2500 #### [facility] [address] [place], [address] Basophils/100 WBC (Bld) 0.5 % Normal 0-1 [facility] Comment on above: Performed By: #### L 100.0100, L500.2500 #### [facility] [address] [place], [address] Eosinophils/100 WBC (Bld) 1.9 % Normal 0-5 [facility] Comment on above: Performed By: #### L 100.0100, L500.2500 #### [facility] [address] [place], [address] Erythrocyte distribution width (RBC) [Ratio] 13.2 % Normal 11.6-14.6 [facility] Comment on above: Performed By: #### L 100.0100, L500.2500 #### [facility] [address] [place], [address] Hematocrit (Bld) [Volume fraction] 45.4 % Normal 40-54 [facility] Comment on above: Performed By: #### L 100.0100, L500.2500 #### [facility] [address] [place], [address] Hemoglobin (Bld) [Mass/Vol] 15.2 g/dL Normal 13.0-16.5 [facility] Comment on above: Performed By: #### L 100.0100, L500.2500 #### [facility] [address] [place], [address] IG% 0.300 Normal 0.0-0.9 [facility] Comment on above: Result Comment: IG% - Immature Granulocytes (promyelocytes, myelocytes and metamyelocytes) > 1% indicates that a LEFT SHIFT is Present. Performed By: #### L 100.0100, L500.2500 #### [facility] [address] [place], [address] Lymphocytes/100 WBC (Bld) 29.6 % Normal 19-41 [facility] Comment on above: Performed By: #### L 100.0100, L500.2500 #### [facility] [address] [place], [address] MCH (RBC) [Entitic mass] 29.7 pg Normal 27.0-32.0 [facility] Comment on above: Performed By: #### L 100.0100, L500.2500 #### [facility] [address] [place], [address] MCHC (RBC) [Mass/Vol] 33.5 g/dL Normal 32-36 [facility] Comment on above: Performed By: #### L 100.0100, L500.2500 #### [facility] [address] [place], [address] MCV (RBC) [Entitic vol] 88.8 fL Normal 80-94 [facility] Comment on above: Performed By: #### L 100.0100, L500.2500 #### [facility] [address] [place], [address] Monocytes/100 WBC (Bld) 7.8 % Normal 0-10 [facility] Comment on above: Performed By: #### L 100.0100, L500.2500 #### [facility] [address] [place], [address] Neutrophils/100 WBC (Bld) 59.9 % Normal 47-70 [facility] Comment on above: Performed By: #### L 100.0100, L500.2500 #### [facility] [address] [place], [address] Nucleated RBC (Bld) [#/Vol] 0 10*3/uL Normal 0-5 [facility] Comment on above: Performed By: #### L 100.0100, L500.2500 #### [facility] [address] [place], [address] Platelet mean volume (Bld) [Entitic vol] 11.4 fL Normal 6.2-12.0 [facility] Comment on above: Performed By: #### L 100.0100, L500.2500 #### [facility] [address] [place], [address] Platelets (Bld) [#/Vol] 263 10*3/uL Normal 150-450 [facility] Comment on above: Performed By: #### L 100.0100, L500.2500 #### [facility] [facility] [address] [place], [address] RBC (Bld) [#/Vol] 5.11 10*6/uL Normal 4.6-6.2 [facility] Comment on above: Performed By: #### L 100.0100, L500.2500 #### [facility] [address] [place], [address] RDW SD 43.0 fl Normal 35.1-43.9 [facility] Comment on above: Performed By: #### L 100.0100, L500.2500 #### [facility] [address] [place], [address] WBC (Bld) [#/Vol] 9.3 10*3/uL Normal 4.4-11.0 [facility] Comment on above: Performed By: #### L 100.0100, L500.2500 #### [facility] [address] [place], [address] Determination of erythrocyte mean corpuscular volume (MCV)Ordered By: Jackelin Amaya on 11-27-2022 MCV (RBC) [Entitic vol] 88.8 fL 80-94 [facility] Emergency Department Summary on 11-27-2022 Emergency Department Summary [facility] Medical Records Department [address] [place] [address] Emergency Department Summary 11/27/22 MR#: [id number] Acct: [id number] Name: JAIME VEGA Rep #: [id number] : 1980 42 From: Jackelin Amaya MD PCP: Dr. Conor Pantoja MD Status:DEP ER Location: ED HPI History of Present Illness Chief Complaint: Flank Pain Informant: patient Onset/Context/Timing Onset: Days Context: Gradual Onset Timing: Waxes and wanes Current Severity: Mild Maximum Severity: Moderate Narrative Narrative: Patient presents with bilateral flank pain. He reports pain across his back on the lower ribs that will occasionally wrap around his abdomen. It is left and right equally. He denies hematuria or dysuria. No history of kidney stones. He states that the pain and cramping will get better after he drinks Gatorade but then will return. [facility] Medical History Depression GERD (gastroesophageal reflux disease) Seasonal allergies Home Medications prednisone 20 mg tablet 40 mg (2 x 20 mg) PO DAILY #8 tabs 11/27/22 [Rx Last Taken Unknown] Allergy/AdvReac Type Severity Reaction Status Date / Time codeine Allergy Intermediate Rash Verified 11/27/22 17:24 Social History Smoking Status: Never smoker ROS ROS ED Constitutional Constitutional ED: Denies chills or fever(s) Eyes Eyes: Denies change in vision or discharge from eye(s) ENT ENT ED: Denies discharge from eye(s), rhinorrhea or sore throat Cardiovascular Cardiovascular: Denies chest pain Respiratory/Chest Respiratory/Chest: Denies cough or dyspnea Gastrointestinal Gastrointestinal: Reports abdominal pain; Denies diarrhea, nausea or vomiting Genitourinary Genitourinary ED: Denies difficulty urinating, dysuria or hematuria Musculoskeletal Musculoskeletal: Reports back pain; Denies extremity pain Integumentary Denies Abrasions or rash Neurologic Neurologic: Reports headache(s); Denies weakness Psychiatric Psychiatric: Denies anxiety or depression Allergic/Immunologic Allergic/Immunologic ED: Denies lip swelling or urticaria EXAM Physical Exam Const Vital Signs: 11/27/22 16:46 Temperature 96.8 F L Temperature Source Temporal Pulse Rate 89 Respiratory Rate 18 Blood Pressure 140/89 H Blood Pressure Mean 106 Pulse Ox 97 Oxygen Delivery Method Room Air Positive well nourished and well developed General Appearance ED: well developed HEENT Reports normocephalic and head/scalp atraumatic Eyes PERRL and EOMs intact bilaterally Neck supple Chest Wall inspection of chest normal and palpation of chest normal Resp normal respiratory effort and clear to auscultation bilaterally Cardio regular rate and regular rhythm GI non-tender Palpation: soft Back/Spine no CVA tenderness Extremity normal to inspection Neuro oriented x3 and no sensory deficits noted Sensorium / Orientation: alert Motor Exam: strength 5/5 throughout Psych mental status grossly normal Skin no rashes or lesions noted MDM MDM MDM Narrative Medical decision making narrative: Labwork obtained to evaluate for leukocytosis, anemia, and electrolyte derangement. Urinalysis obtained to evaluate for infection/hematuria. CT flank obtained to evaluate for renal stone or hydronephrosis. 1 L of IV fluids ordered. Lab Data Attestation: I reviewed the patient's lab results. Labs: Laboratory Results - last 24 hr 11/27/22 11/27/22 16:55 17:23 WBC 9.3 RBC 5.11 Hgb 15.2 Hct 45.4 MCV 88.8 MCH 29.7 MCHC 33.5 RDW Std Deviation 43.0 RDW Coeff of Mela 13.2 Plt Count 263 MPV 11.4 Immature Gran % (Auto) 0.300 Neut % (Auto) 59.9 Lymph % (Auto) 29.6 [place]on % (Auto) 7.8 Eos % (Auto) 1.9 Baso % (Auto) 0.5 Absolute Neuts (auto) 5.6 Absolute Lymphs (auto) 2.75 Nucleated RBC % 0 Sodium 140 Potassium 3.9 Chloride 108 H Carbon Dioxide 25.0 Anion Gap 7 BUN 15 Creatinine 1.17 Estim Creat Clear Calc 82.25 Est GFR (MDRD) Af Amer 88 Est GFR (MDRD) Non-Af 73 BUN/Creatinine Ratio 12.8 Glucose 104 Calcium 9.1 Urine Color Yellow Urine Clarity Clear Urine pH 5.0 Ur Specific Jefferson 1.025 Urine Protein 15 H Urine Glucose (UA) Normal Urine Ketones Negative Urine Occult Blood Negative Urine Nitrite Negative Urine Bilirubin Negative Urine Urobilinogen Normal Ur Leukocyte Esterase Negative Urine RBC 0 SEEN Urine WBC 0 SEEN Ur Squamous Epith Cells 0-5 SEEN Urine Bacteria 0 SEEN Urine Mucus 0 SEEN Radiography Diagnostic Testing: Clinical Impression(s) from Imaging Studies Abdomen/Pelvis CT (more content not included)... Normal [facility] Hematocrit Auto (Bld) [Volum e fraction]Ordered By: Jackelin Amaya on 11-27-2022 Hematocrit (Bld) [Volume fraction] 45.4 % 40-54 [facility] Ketones Test strip Ql (U)Ord ered By: Jackelin Amaya on 11-27-2022 Ketones Ql (U) Negative Negative [facility] - Chemistry and C hemistry - challengeOrdered By: Jackelin Amaya on 11-27-2022 CO2 [Moles/Vol] 25.0 mmol/L 21.0-32.0 [facility] Urea nitrogen/Creatinine [Mass ratio] 12.8 mg/mg 10-20 [facility] - Hematology and Cell countsOrdered By: Jackelin Amaya on 11-27-2022 Erythrocyte distribution width (RBC) [Entitic vol] 43.0 fL 35.1-43.9 [facility] Erythrocyte distribution width (RBC) [Ratio] 13.2 % 11.6-14.6 [facility] Immature granulocytes/100 WBC (Bld) 0.300 % 0.0-0.9 [facility] Comment on above: IG% - Immature Granu locytes (promyelocytes, myelocytes and metamyelocytes) > 1% indicates that a LEFT SHIFT is Present. MCH (RBC) [Entitic mass] 29.7 pg 27.0-32.0 [facility] Nucleated RBC/100 WBC (Bld) [Ratio] 0 % 0-5 [facility] MCHC Auto (RBC) [Mass/Vol]Or dered By: Jackelin Amaya on 11-27-2022 MCHC (RBC) [Mass/Vol] 33.5 g/dL 32-36 [facility] Mucus LM Ql (Urine sed)Order ed By: Jackelin Amaya on 11-27-2022 Mucus Ql (Urine sed) 0 SEEN /hpf [facility] Nitrite Test strip Ql (U)Ord ered By: Jackelin Amaya on 11-27-2022 Nitrite Ql (U) Negative Negative [facility] No Panel InformationOrdered By: Jackelin Amaya on 11-27-2022 Estimated Creatinine Clearance Calc 82.25 ml/min [facility] Estimated GFR (MDRD) Amer 88 mL/min >60 [facility] Comment on above: GFR Calc Estimated GFR (MDRD) Non-Af Amer 73 mL/min >60 [facility] Comment on above: Non- GFR Calc Platelets bldOrdered By: Sarah Amaya on 11-27-2022 Platelets (Bld) [#/Vol] 263 10*3/uL 150-450 [facility] Protein Test strip Ql (U)Ord ered By: Jackelin Amaya on 11-27-2022 Protein Ql (U) 15 mg/dl Negative [facility] Serum or plasma calcium joselin urement (mass/volume)Ordered By: Jackelin Amaya on 11-27-2022 Calcium [Mass/Vol] 9.1 mg/dL 8.5-10.1 [facility] Serum or plasma creatinine m easurement (mass/volume)Ordered By: Jackelin Amaya on 11-27-2022 Creatinine [Mass/Vol] 1.17 mg/dL 0.70-1.30 [facility] Comment on above: The validity of the calculated GFR & GFRAA in patients over 70 years has not been determined. Clinical correlation is essential. Serum or plasma urea nitroge n measurement (mass/volume)Ordered By: Jackelin Amaya on 11-27-2022 Urea nitrogen [Mass/Vol] 15 mg/dL 7-18 [facility] Squamous epithelial cells de tection in urine sediment by light microscopyOrdered By: Jackelin Amaya on 11-27-2022 Epithelial cells.squamous LM Ql (Urine sed) 0-5 SEEN /hpf 0-5 [facility] Thin prep Papanicolaou smear with manual screeningOrdered By: Jackelin Amaya on 11-27-2022 Thin prep Papanicolaou smear with manual screening 7 5-15 [facility] Urinalysis, Completeon 11-27 EPI,SQUAMOUS 0-5 SEEN Normal 0-5 [facility] Comment on above: Order Comment: CLEAN CATCH Performed By: #### L 400.0001 #### [facility] [address] [place], [place], [id number] BACTERIA 0 SEEN Normal None Seen [facility] Comment on above: Order Comment: CLEAN CATCH Performed By: #### L 400.0001 #### [facility] [address] [place], [address] Mucus Ql (Urine sed) 0 SEEN Normal [facility] Comment on above: Order Comment: CLEAN CATCH Performed By: #### L 400.0001 #### [facility] [address] [place], [address] RBC 0 SEEN Normal 0-5 [facility] Comment on above: Order Comment: CLEAN CATCH Performed By: #### L 400.0001 #### [facility] [address] [place], [address] WBC 0 SEEN Normal 0-5 [facility] Comment on above: Order Comment: CLEAN CATCH Performed By: #### L 400.0001 #### [facility] [address] [place], [place], [id number] Urine blood detectionOrdered By: Jackelin Amaya on 11-27-2022 RBC Ql (U) Negative Negative [facility] RBC Ql (U) 0 SEEN /hpf 0-5 [facility] Urine clarityOrdered By: Sarah Amaya on 11-27-2022 Clarity (U) Clear Clear [facility] Urine color determinationOrd ered By: Jackelin Amaya on 11-27-2022 Color (U) Yellow Yellow [facility] Urine glucose detectionOrder ed By: Jackelin Amaya on 11-27-2022 Glucose Ql (U) Normal mg/dl Normal [facility] Urine leukocyte esterase det ection by dipstickOrdered By: Jackelin Amaya on 11-27-2022 Leukocyte esterase Test strip Ql (U) Negative Negative [facility] Urine pHOrdered By: Jackelin Amaya on 11-27-2022 pH (U) 5.0 [pH] 5.0 - 8.0 [facility] Urine sediment bacteria coun t by microscopy (number/high power field)Ordered By: Jackelin Amaya on 11-27-2022 Bacteria LM.HPF (Urine sed) [#/Area] 0 /[HPF] None Seen [facility] Urine specific gravity measu rementOrdered By: Jackelin Amaya on 11-27-2022 Specific gravity (U) [Rel density] 1.025 1.002-1.030 [facility] Urobilinogen Auto test strip Ql (U)Ordered By: Jackelin Amaya on 11-27-2022 Urobilinogen Ql (U) Normal mg/dl Normal [facility] SURGICAL PATHOLOGYon 023 Case Report Surgical Pathology R eport Case: [id number] Authorizing Provider: Sukhjinder Dunn MD Collected: 06/15/2022 09:56 AM Ordering Location: Ambulatory Surgery Received: 06/15/2022 01:22 PM Pathologist: Traci Ling MD Specimen: DESCENDING COLON POLYP [facility] FINAL DIAGNOSIS A. Colon, descending , polypectomy - Tubular adenoma [facility] Gross Description A. DESCENDING COLON POLYP Received in formalin is one molina polypoid segment of tissue measuring 1.0 x 0.6 x 0.4 cm. No stalk is present. The line of resection is noted. The specimen is bisected and totally submitted in one cassette. Gross examination performed at [facility], [address] [place] [address] JT 06/15/2022 11:48 PM [facility] Performing Lab Diagnostic interpret ation performed at [facility], [address] [place] [address] CLIA# [id number] Behavior Support Specialist: Frankie Lindsey M.D. [facility] COLONOSCOPY DIAGNOSTICon [facility] NM CARDIAC PERF STRESS/EXERC ISEon 02-23-2022 [facility] XR KNEE GENERAL 4V AP BOTH/P A BOTH/LAT/MERC LEFTon 10-24-2021 [facility] XR Knee - left 4 Viewson IMPRESSION: Minimal medial compartmental narrowing. Otherwise unremarkable. Optical Advisor: CARLOS Transcribe Date/Time: Oct 24 2021 3:50P Dictated by : AMANDA FINCH MD This examination was interpreted and the report reviewed and electronically signed by: AMANDA FINCH MD on Oct 24 2021 3:52PM EST ZZZ_DO_NOT_ USE_DIVISIO N OF RADIOLOGY * * *Final Report* * * DATE OF EXAM: Oct 24 2021 3:28PM WOX 5202 - XR KNEE 4V AP/PA BOTH+LAT/OSCAR LT / PROCEDURE REASON: multiple diagnoses * * * * Physician Interpretation * * * * EXAMINATION: XR KNEE 4V AP/PA BOTH+LAT/OSCAR LT HISTORY: Chronic diffuse left knee pain that has steadily increased over time. Negative injury. Chronic pain of left knee. TECHNIQUE: XR KNEE 4V AP/PA BOTH+LAT/OSCAR LT Laterality: LEFT Number of different views (projections): 4 M: XB_1 COMPARISON: There are no prior relevant examinations available for comparison within the [facility] Archives. RESULT: Standing frontal radiographs of the bilateral knees with bilateral PA flexion views, sunrise views and bilateral lateral views show no acute osseous or articular process. Minimal narrowing of the medial tibiofemoral joint compartments noted bilaterally. Patellofemoral joint compartments are maintained. No abnormal joint fluid. [facility]_DO_NOT_ USE_DIVISIO N OF RADIOLOGY Provider, [facility] - 10/24/2021 * * *Final Report* * * DATE OF EXAM: Oct 24 2021 3:28PM WOX 5202 - XR KNEE 4V AP/PA BOTH+LAT/OSCAR LT / PROCEDURE REASON: multiple diagnoses * * * * Physician Interpretation * * * * EXAMINATION: XR KNEE 4V AP/PA BOTH+LAT/OSCAR LT HISTORY: Chronic diffuse left knee pain that has steadily increased over time. Negative injury. Chronic pain of left knee. TECHNIQUE: XR KNEE 4V AP/PA BOTH+LAT/OSCAR LT Laterality: LEFT Number of different views (projections): 4 M: XB_1 COMPARISON: There are no prior relevant examinations available for comparison within the [facility] Archives. RESULT: Standing frontal radiographs of the bilateral knees with bilateral PA flexion views, sunrise views and bilateral lateral views show no acute osseous or articular process. Minimal narrowing of the medial tibiofemoral joint compartments noted bilaterally. Patellofemoral joint compartments are maintained. No abnormal joint fluid. IMPRESSION IMPRESSION: Minimal medial compartmental narrowing. Otherwise unremarkable. Optical Advisor: CARLOS Transcribe Date/Time: Oct 24 2021 3:50P Dictated by : AMANDA FINCH MD This examination was interpreted and the report reviewed and electronically signed by: AMANDA FINCH MD on Oct 24 2021 3:52PM EST [facility] Rad[facility] - left 4 ViewsOrdere d By: [facility]cf Provider on 10-24-2021 [facility] XR Chest PA and Lateralon IMPRESSION: No acute radiographic abnormality. Optical Advisor: CARLOS Transcribe Date/Time: Jun 13 2021 9:21A Dictated by : KAMI TAMAYO MD This examination was interpreted and the report reviewed and electronically signed by: KAMI TAMAYO MD on Jun 13 2021 9:21AM [facility] DIVISION OF RADIOLOGY * * *Final Report* * * DATE OF EXAM: Jun 13 2021 9:09AM WOX 5291 - XR CHEST 2V FRONTAL/LAT / PROCEDURE REASON: SOB (shortness of breath) * * * * Physician Interpretation * * * * EXAMINATION: CHEST RADIOGRAPH (2 VIEW FRONTAL & LATERAL) CLINICAL HISTORY: SOB (shortness of breath) MQ: XC2_6 EXAM DATE/TIME: 06/13/2021 9:09 AM COMPARISON: Chest x-ray on 11/22/2020 RESULT: Lines, tubes, and devices: None. Lungs and pleura: No consolidation. No lung mass. No pleural effusion. No pneumothorax. Cardiomediastinal silhouette: Stable cardiomediastinal silhouette. Bones and soft tissues: Unremarkable. DIVISION OF RADIOLOGY Provider, [facility] - 06/13/2021 * * *Final Report* * * DATE OF EXAM: Jun 13 2021 9:09AM WOX 5291 - XR CHEST 2V FRONTAL/LAT / PROCEDURE REASON: SOB (shortness of breath) * * * * Physician Interpretation * * * * EXAMINATION: CHEST RADIOGRAPH (2 VIEW FRONTAL & LATERAL) CLINICAL HISTORY: SOB (shortness of breath) MQ: XC2_6 EXAM DATE/TIME: 06/13/2021 9:09 AM COMPARISON: Chest x-ray on 11/22/2020 RESULT: Lines, tubes, and devices: None. Lungs and pleura: No consolidation. No lung mass. No pleural effusion. No pneumothorax. Cardiomediastinal silhouette: Stable cardiomediastinal silhouette. Bones and soft tissues: Unremarkable. IMPRESSION IMPRESSION: No acute radiographic abnormality. Optical Advisor: CARLOS Transcribe Date/Time: Jun 13 2021 9:21A Dictated by : KAMI TAMAYO MD This examination was interpreted and the report reviewed and electronically signed by: KAMI TAMAYO MD on Jun 13 2021 9:21AM EST [facility] Radiology Study observation (narrative) [facility] XR Chest PA and LateralOrder ed By: Ccf Provider on 06-13-2021 [facility] XR Chest PA and Lateralon IMPRESSION: No acute radiographic abnormality. Optical Advisor: [facility] Transcribe Date/Time: Nov 22 2020 11:13A Dictated by : BANDAR SADLER MD This examination was interpreted and the report reviewed and electronically signed by: BANDAR SADLER MD on Nov 22 2020 11:13AM EST DIVISION OF RADIOLOGY * * *Final Report* * * DATE OF EXAM: Nov 22 2020 10:54AM WOX 5291 - XR CHEST 2V FRONTAL/LAT / PROCEDURE REASON: multiple diagnoses * * * * Physician Interpretation * * * * EXAMINATION: CHEST RADIOGRAPH (2 VIEW FRONTAL & LATERAL) CLINICAL HISTORY: Pneumonia due to COVID-19 virus Pneumonia due to COVID-19 virus MQ: XC2_6 EXAM DATE/TIME: 11/22/2020 10:54 AM COMPARISON: June 17, 2018 RESULT: Lines, tubes, and devices: None. Lungs and pleura: No consolidation. No lung mass. No pleural effusion. No pneumothorax. Cardiomediastinal silhouette: Normal cardiomediastinal silhouette. Bones and soft tissues: Unremarkable. DIVISION OF RADIOLOGY Provider, [facility] Felicity [facility] - 11/22/2020 * * *Final Report* * * DATE OF EXAM: Nov 22 2020 10:54AM WOX 5291 - XR CHEST 2V FRONTAL/LAT / PROCEDURE REASON: multiple diagnoses * * * * Physician Interpretation * * * * EXAMINATION: CHEST RADIOGRAPH (2 VIEW FRONTAL & LATERAL) CLINICAL HISTORY: Pneumonia due to COVID-19 virus Pneumonia due to COVID-19 virus MQ: XC2_6 EXAM DATE/TIME: 11/22/2020 10:54 AM COMPARISON: June 17, 2018 RESULT: Lines, tubes, and devices: None. Lungs and pleura: No consolidation. No lung mass. No pleural effusion. No pneumothorax. Cardiomediastinal silhouette: Normal cardiomediastinal silhouette. Bones and soft tissues: Unremarkable. IMPRESSION IMPRESSION: No acute radiographic abnormality. Optical Advisor: CARLOS Transcribe Date/Time: Nov 22 2020 11:13A Dictated by : BANDAR SADLER MD This examination was interpreted and the report reviewed and electronically signed by: BANDAR SADLER MD on Nov 22 2020 11:13AM EST [facility] Radiology Study observation (narrative) [facility] XR Chest PA and LateralOrder ed By: Ccf Provider on 11-22-2020 [facility] XR Tibia and Fibula - left A P and Lateralon 10-17-2020 IMPRESSION: No acute osseous abnormality in the visualized portions of the left leg. Optical Advisor: [facility] Transcribe Date/Time: Oct 17 2020 7:47P Dictated by : HANNAH DEAL MD This examination was interpreted and the report reviewed and electronically signed by: HANNAH DEAL MD on Oct 17 2020 7:49PM [facility] DIVISION OF RADIOLOGY * * *Final Report* * * DATE OF EXAM: Oct 17 2020 7:46PM WOX 5265 - XR TIBIA FIBULA 2V AP/LAT LT / PROCEDURE REASON: Pain of left lower extremity * * * * Physician Interpretation * * * * LEFT TIBIA/FIBULA RADIOGRAPH: HISTORY: Pain in the anterior lower wolf TECHNIQUE: Left tibia/fibula radiograph; 2 views. COMPARISON: None RESULT: No acute fracture, dislocation or suspicious osseous lesion. The joint spaces and anatomic alignment are maintained. Os trigonum. DIVISION OF RADIOLOGY Provider, Ellie Blevins [facility] - 10/17/2020 * * *Final Report* * * DATE OF EXAM: Oct 17 2020 7:46PM WOX 5265 - XR TIBIA FIBULA 2V AP/LAT LT / PROCEDURE REASON: Pain of left lower extremity * * * * Physician Interpretation * * * * LEFT TIBIA/FIBULA RADIOGRAPH: HISTORY: Pain in the anterior lower wolf TECHNIQUE: Left tibia/fibula radiograph; 2 views. COMPARISON: None RESULT: No acute fracture, dislocation or suspicious osseous lesion. The joint spaces and anatomic alignment are maintained. Os trigonum. IMPRESSION IMPRESSION: No acute osseous abnormality in the visualized portions of the left leg. Optical Advisor: CARLOS Transcribe Date/Time: Oct 17 2020 7:47P Dictated by : HANNAH DEAL MD This examination was interpreted and the report reviewed and electronically signed by: HANNAH DEAL MD on Oct 17 2020 7:49PM EST [facility] Radiology Study observation (narrative) [facility] XR Tibia and Fibula - left A P and LateralOrdered By: Ccf Provider on 10-17-2020 [facility] XR WRIST 4V PA/LAT/OBL/SCAPH LTon 10-10-2019 XR WRIST 4V PA/LAT/OBL/SCAPH LT * * *Final Report* * * DATE OF EXAM: Oct 10 2019 5:46PM LDX 5272 - XR WRIST 4V PA/LAT/OBL/SCAPH LT / PROCEDURE REASON: Fracture, wrist * * * * Physician Interpretation * * * * EXAMINATION: XR WRIST 4V PA/LAT/OBL/SCAPH LT HISTORY: fell from ladder, wrist pain Fracture, wrist. TECHNIQUE: XR WRIST 4V PA/LAT/OBL/SCAPH LT Laterality: LEFT Number of different views (projections): 4 M: XB_1 COMPARISON: None. RESULT: Joint spaces are preserved. No acute fracture. No dislocation. No radiopaque foreign body visualized. IMPRESSION: No acute radiographic findings. Optical Advisor: [facility] Transcribe Date/Time: Oct 10 2019 5:49P Dictated by : JEANA GARIBAY MD This examination was interpreted and the report reviewed and electronically signed by: JEANA GARIBAY MD on Oct 10 2019 5:49PM EST [facility] CNOVon 05-26-2018 CNOV Office Visit ([facility]) JAIME VEGA ([id number]) 1980 MDate Time Provider Department05/26/18 6:30 PM MILDRED DOUGLAS ([place]FFANY) [facility] During your visit today, we recorded the following information about you: Temperature Pulse Respiration Blood pressure 97.1 degrees 66/minute 16/minute 116/72 Weight 105.7 kgMildred Douglas APRN.CNP 05/26/2018 7:22 PM SignedSubjectiveHPI Jaime Vega is a 37 year old male who presents with cough, chest congestionfor the past 2 days. He has a history of asthma. He has been using his inhalersand nebulizer at home without relief. He denies fever. No known sick contacts.Review of SystemsConstitutional: Negative. Negative for fever.HENT: Positive for congestion and hearing loss (ears feel clogged). Negativefor sore throat.Respiratory: Positive for cough, shortness of breath and wheezing. Negative forsputum production.Cardiovascular: Negative.Gastrointestinal: Negative for diarrhea, nausea and vomiting.Musculoskeletal: Negative. Negative for myalgias. BP 116/72 Pulse 66 Temp 36.2 ?C (97.1 ?F) (Left Tympanic) Resp 16 Wt 105.7 kg (233 lb) SpO2 98% BMI 34.41 kg/m?PAST MEDICAL HISTORYDiagnosis Date- Abdominal pain- Anxiety- Asthma- DepressionPAST SURGICAL HISTORYProcedure Laterality Date- COLONOSCOP W/ OR W/O BRSH SPEC 08/21/15 Colonoscopy with mac- EGD W/O OR W/BRUSH/WASH 08/21/15 EGD with mac- PAST SURGICAL HISTORY OF fatty cyst removed from stomach- PAST SURGICAL HISTORY OF wisdom teethALLERGIES Acetaminophen-Codeine; Seasonal AllergiesMEDICATIONSflutic asone-vilanterol (BREO ELLIPTA) 200-25 mcg/dose inhaler Inhale 1Inhalation as instructed once daily. Rinse mouth out after use.Omeprazole 40 mg capsule Take 1 capsule by mouth once daily.fluticasone (FLONASE) 50 mcg/actuation nasal spray Use 2 Sprays in each nostrilonce daily.VENTOLIN HFA 90 mcg/actuation inhaler INHALE 2 PUFFS DIRECTED EVERY 4 HOURSAS NEEDED FOR WHEEZING or SHORTNESS OF BREATHcloNIDine HCl (CATAPRES) 0.1 mg tablet Take 0.1 mg by mouth twice daily.citalopram (CELEXA) 20 mg tablet citalopram 20 mg tabletcetirizine (ZYRTEC) 10 mg tablet Take 1 tablet by mouth once daily as needed.ketotifen fumarate (ZADITOR) 0.025 % (0.035 %) ophthalmic solution One drop toeach eye 2 to 3 times a day as needed.Omeprazole 40 mg capsule Take 1 capsule by mouth once daily.FAMILY HISTORYProblem Relation Age of Onset- Heart Father- other (colitis [Other]) Father- Colon Cancer Father- other (autism [Other]) Son GI issues/ear problems/adhdSocial HistorySubstance Use Topics- Smoking status: Former Smoker- Smokeless tobacco: Current User Types: Chew- Alcohol use NoObjectivePhysical ExamConstitutional: He is well-developed, well-nourished, and in no distress.HENT:Right Ear: Tympanic membrane, external ear and ear canal normal.Nose: Nose normal. No rhinorrhea.Mouth/Throat: Uvula is midline, oropharynx is clear and moist and mucousmembranes are normal. No posterior oropharyngeal edema or posteriororopharyngeal erythema.Left ear: Cerumen impairs exam of clinically significant portions of theexternal auditory canal, tympanic membrane or middle ear condition.Eyes: Conjunctivae are normal.Neck: Neck supple.Cardiovascular: Normal rate and regular rhythm.Pulmonary/Chest: Effort normal. No respiratory distress. He has wheezes (few,scattered). He has no rales.Lymphadenopathy: He has no cervical adenopathy.Neurological: He is alert.Skin: Skin is warm and dry.Nursing note and vitals reviewed. ASSESSMENT/PLAN:1. Impacted cerumen of left ear - ICD9: 380.4, ICD10: H61.22 (primary diagnosis)- PERS HLTH MGMT EAR WAX REMOVALCerumen removed via irrigation, patient tolerated procedure well. Postprocedure ear canal is clear and TM is well visualized with bony landmarksintact and no sign of inflammation/infection.2. Acute asthmatic bronchitis - ICD9: 493.90, ICD10: J45.909Mild intermittent Asthma acute excacerbation without status- Continue current meds- Exacerbation treatment of Prednisone burst with long taper- see orders- Avoidance of triggers recommended- PREDNISONE 10 MG TABLET- tapering dose as directed- BROMPHENIRAMINE-PSEUDOEPHE DRINE-DM 2 MG-30 MG-10 MG/5 ML SYRUP- GUAIFENESIN ER 600 MG TABLET, EXTENDED RELEASE 12 HR- Follow-up with your PCP in 3-5 days if symptoms have not improved or soonerif symptoms worsen- Discussed red flags and need for immediate medical evaluation if any occur.- Discussed supportive care treatment with fluids, rest and analgesia.- Discussed expected course of illnessReggie Foster APRN.CNP 05/26/2018 7:03 PM SignedASSESSMENT/PLAN:1. Impacted cerumen of left ear - ICD9: 380.4, ICD10: H61.22 (primary diagnosis)- PERS HLTH MGMT EAR WAX REMOVALCerumen removed via irrigation, patient tolerated procedure well. Postprocedure ear canal is clear and TM is well visualized with bony landmarksintact and no sign of inflammation/infection.2. Acute asthmatic bronchitis - ICD9: 493.90, ICD10: J45.909Mild intermittent Asthma acute excacerbation without status- Continue current meds- Exacerbation treatment of Prednisone burst with long taper- see orders- Avoidance of triggers recommended- PREDNISONE 10 MG TABLET- tapering dose as directed- BROMPHENIRAMINE-PSEUDOEPHE DRINE-DM 2 MG-30 MG-10 MG/5 ML SYRUP- GUAIFENESIN ER 600 MG TABLET, EXTENDED RELEASE 12 HR- Follow-up with your PCP in 3-5 days if symptoms have not improved or soonerif symptoms worsen- Discussed red flags and need for immediate medical evaluation if any occur.- Discussed supportive care treatment with fluids, rest and analgesia.- Discussed expected course of illnessMildred Douglas APRN.CNPACUTE BRONCHITIS:You have acute bronchitis. This means the airway passages in your lungs areinflamed. Bronchitis may be caused by viruses or bacteria. Inhaling cigarettesmoke will always make it worse. Exposure to irritating chemicals or secondhand smoke as well as allergies can contribute to bronchitis. Repeat episodesof bronchitis may cause lifelong lung problems.Acute bronchitis is usually treated with rest, fluids, cough medicine, andpossibly antibiotics or inhaled medicine to open up the small airways. It isvery important that you avoid smoke and drink increased amounts of fluids. Acool air vaporizer can help thin bronchial secretions. This makes it easier tocough and clear your chest. If you are a cigarette smoker, consider usingnicotine gum or skin patches to help you withdraw.Recovery from bronchitis is often slow, but you should start feeling betterafter 2-3 days of treatment. Please call your doctor or return here if youhave any of the following symptoms: - Increased fever, chills, or chest pain. - Severe shortness of breath or bloody sputum. - Do not improve after 3 days of proper treatment.Referring Provider: SELF [[id number]]Allergies As of Date: 05/26/2018 Noted Allergy ReactionACETAMINOPHEN-CODE INE 11/26/2015 2 - RashSEASONAL ALLERGIES 01/05/2017 16 - Unknown Comments: CATS, DOGS, COCKROACHES, MOLDS, TREES, GRASSES, WEEDS AND RAGWEED VERIFIED BY SKIN TESTINGDate Reviewed: 05/26/2018Reviewed by: Mildred [facility]Cl[facility]) Misael Kendall AssessedReason for Visit: CAIO [115]Primary Visit Diagnosis:Impacted cerumen of left ear [H61.22] Other Visit Diagnosis:Acute asthmatic bronchitis [J45.909]Order(s):predniSO NE (DELTASONE) 10 mg tabletTake 4 tabs daily for 3 days, then 2 tabs daily for 3 days, then 1 tab daily for 3 days with food.Disp: 21 tabletRfl: 0 Brompheniramine-Pseudoeph- DM (BROMFED DM) 2-30-10 mg/5 mL syrupTake 5 mL by mouth four times daily as needed.Disp: 118 mLRfl: 0 guaiFENesin (MUCINEX) 600 mg 12 hr tabletTake 1 tablet by mouth twice daily for 10 days.Disp: 20 tabletRfl: 0 PERS HLTH MGMT EAR WAX REMOVA [[id number]] Order #: [id number] as of 05/26/2018 Sig: FLUTICASONE 200 MCG-VILANTERO* Inhale 1 Inhalation as instru* OMEPRAZOLE 40 MG CAPSULE,BETO* Take 1 capsule by mouth once * FLUTICASONE 50 MCG/ACTUATION * Use 2 Sprays in each nostril * VENTOLIN HFA 90 MCG/ACTUATION* INHALE 2 PUFFS DIRECTED EV* CLONIDINE HCL 0.1 MG TABLET Take 0.1 mg by mouth twice da* CITALOPRAM 20 MG TABLET citalopram 20 mg tablet CETIRIZINE 10 MG TABLET Take 1 tablet by mouth once d* KETOTIFEN 0.025 % (0.035 %) E* One drop to each eye 2 to 3 t* OMEPRAZOLE 40 MG CAPSULE,BETO* Take 1 capsule by mouth once * PREDNISONE 10 MG TABLET Take 4 tabs daily for 3 days,* BROMPHENIRAMINE-PSEUDOEPHE DRI* Take 5 mL by mouth four times* GUAIFENESIN ER 600 MG TABLET,* Take 1 tablet by mouth twice *Problem List As Of Date 05/26/2018 Noted Resolved Right upper quadrant abdominal pain [R10.11] INVALID FOR* Nausea [R11.0] INVALID FOR* Bloating symptom [R14.0] INVALID FOR* Mild persistent asthma without complication [J4*INVALID FOR* Anxiety and depression [F41.9, F32.9] INVALID FOR* Allergic rhinitis due to animal hair and dander*INVALID FOR* Allergic rhinitis due to dust mite [J30.89] INVALID FOR* Seasonal allergic rhinitis due to pollen [J30.1]INVALID FOR* Seasonal allergic rhinitis due to fungal spores*INVALID FOR* Other instructions from your clinician: ASSESSMENT/PLAN: 1. Impacted cerumen of left ear - ICD9: 380.4, ICD10: H61.22 (primary diagnosis) - PERS HLTH MGMT EAR WAX REMOVAL Cerumen removed via irrigation, patient tolerated procedure well. Post procedure ear canal is clear and TM is well visualized with bony landmarks intact and no sign of inflammation/infection. 2. Acute asthmatic bronchitis - ICD9: 493.90, ICD10: J45.909 Mild intermittent Asthma acute excacerbation without status - Continue current meds - Exacerbation treatment of Prednisone burst with long taper- see orders - Avoidance of triggers recommended - PREDNISONE 10 MG TABLET- tapering dose as directed - BROMPHENIRAMINE-PSEUDOEPHE DRINE-DM 2 MG-30 MG-10 MG/5 ML SYRUP - GUAIFENESIN ER 600 MG TABLET, EXTENDED RELEASE 12 HR - Follow-up with your PCP in 3-5 days if symptoms have not improved or sooner if symptoms worsen - Discussed red flags and need for immediate medical evaluation if any occur. - Discussed supportive care treatment with fluids, rest and analgesia. - Discussed expected course of illness Mildred Douglas APRN.TIFFANY ACUTE BRONCHITIS: You have acute bronchitis. This means the airway passages in your lungs are inflamed. Bronchitis may be caused by viruses or bacteria. Inhaling cigarette smoke will always make it worse. Exposure to irritating chemicals or second hand smoke as well as allergies can contribute to bronchitis. Repeat episodes of bronchitis may cause lifelong lung problems. Acute bronchitis is usually treated with rest, fluids, cough medicine, and possibly antibiotics or inhaled medicine to open up the small airways. It is very important that you avoid smoke and drink increased amounts of fluids. A cool air vaporizer can help thin bronchial secretions. This makes it easier to cough and clear your chest. If you are a cigarette smoker, consider using nicotine gum or skin patches to help you withdraw. Recovery from bronchitis is often slow, but you should start feeling better after 2-3 days of treatment. Please call your doctor or return here if you have any of the following symptoms: - Increased fever, chills, or chest pain. - Severe shortness of breath or bloody sputum. - Do not improve after 3 days of proper treatment.Prescriptions ordered this encounter Disp Refills Start End PREDNISONE 10 MG TABLET 21 t* 0 05/26/2018 06/04/2018 Sig: Take 4 tabs daily for 3 days, then 2 tabs daily for 3 days, then 1 tab daily for 3 days with food. BROMPHENIRAMINE-PSEUDOEPHE DRINE-DM 2* 118 * 0 05/26/2018 Route: ORAL Sig: Take 5 mL by mouth four times daily as needed. GUAIFENESIN ER 600 MG TABLET, EXTEND* 20 t* 0 05/26/2018 06/05/2018 Route: ORAL Sig: Take 1 tablet by mouth twice daily for 10 days. Status:Closed by MILDRED DOUGLAS on 05/26/18 Normal [facility] PROGRESSon 05-26-2018 Protein mass conc HNO ID: [id number] thor: Mildred (Ad Clerk) Josephine: (none)Author Type: Nurse PractitionerType: Progress NotesFiled: 05/26/2018 7:22 PMNote Text:SubjectiveHPI Jaime Vega is a 37 year old male who presents with cough, chestcongestion for the past 2 days. He has a history of asthma. He has beenusing his inhalers and nebulizer at home without relief. He denies fever.No known sick contacts.Review of SystemsConstitutional: Negative. Negative for fever.HENT: Positive for congestion and hearing loss (ears feel clogged).Negative for sore throat.Respiratory: Positive for cough, shortness of breath and wheezing.Negative for sputum production.Cardiovascular: Negative.Gastrointestinal: Negative for diarrhea, nausea and vomiting.Musculoskeletal: Negative. Negative for myalgias. BP 116/72 Pulse 66 Temp 36.2 ?C (97.1 ?F) (Left Tympanic) Resp16 Wt 105.7 kg (233 lb) SpO2 98% BMI 34.41 kg/m?PAST MEDICAL HISTORYDiagnosis Date- Abdominal pain- Anxiety- Asthma- DepressionPAST SURGICAL HISTORYProcedure Laterality Date- COLONOSCOP W/ OR W/O BRSH SPEC 08/21/15 Colonoscopy with mac- EGD W/O OR W/BRUSH/WASH 08/21/15 EGD with mac- PAST SURGICAL HISTORY OF fatty cyst removed from stomach- PAST SURGICAL HISTORY OF wisdom teethALLERGIES Acetaminophen-Codeine; Seasonal AllergiesMEDICATIONSflutic asone-vilanterol (BREO ELLIPTA) 200-25 mcg/dose inhaler Inhale 1Inhalation as instructed once daily. Rinse mouth out after use.Omeprazole 40 mg capsule Take 1 capsule by mouth once daily.fluticasone (FLONASE) 50 mcg/actuation nasal spray Use 2 Sprays in eachnostril once daily.VENTOLIN HFA 90 mcg/actuation inhaler INHALE 2 PUFFS DIRECTED EVERY 4HOURS NEEDED FOR WHEEZING or SHORTNESS OF BREATHcloNIDine HCl (CATAPRES) 0.1 mg tablet Take 0.1 mg by mouth twice daily.citalopram (CELEXA) 20 mg tablet citalopram 20 mg tabletcetirizine (ZYRTEC) 10 mg tablet Take 1 tablet by mouth once daily asneeded.ketotifen fumarate (ZADITOR) 0.025 % (0.035 %) ophthalmic solution Onedrop to each eye 2 to 3 times a day as needed.Omeprazole 40 mg capsule Take 1 capsule by mouth once daily.FAMILY HISTORYProblem Relation Age of Onset- Heart Father- other (colitis [Other]) Father- Colon Cancer Father- other (autism [Other]) Son GI issues/ear problems/adhdSocial HistorySubstance Use Topics- Smoking status: Former Smoker- Smokeless tobacco: Current User Types: Chew- Alcohol use NoObjectivePhysical ExamConstitutional: He is well-developed, well-nourished, and in no distress.HENT:Right Ear: Tympanic membrane, external ear and ear canal normal.Nose: Nose normal. No rhinorrhea.Mouth/Throat: Uvula is midline, oropharynx is clear and moist and mucousmembranes are normal. No posterior oropharyngeal edema or posteriororopharyngeal erythema.Left ear: Cerumen impairs exam of clinically significant portions of theexternal auditory canal, tympanic membrane or middle ear condition.Eyes: Conjunctivae are normal.Neck: Neck supple.Cardiovascular: Normal rate and regular rhythm.Pulmonary/Chest: Effort normal. No respiratory distress. He has wheezes(few, scattered). He has no rales.Lymphadenopathy: He has no cervical adenopathy.Neurological: He is alert.Skin: Skin is warm and dry.Nursing note and vitals reviewed. ASSESSMENT/PLAN:1. Impacted cerumen of left ear - ICD9: 380.4, ICD10: H61.22 (primarydiagnosis)- PERS HLTH MGMT EAR WAX REMOVALCerumen removed via irrigation, patient tolerated procedure well. Postprocedure ear canal is clear and TM is well visualized with bony landmarksintact and no sign of inflammation/infection.2. Acute asthmatic bronchitis - ICD9: 493.90, ICD10: J45.909Mild intermittent Asthma acute excacerbation without status- Continue current meds- Exacerbation treatment of Prednisone burst with long taper- see orders- Avoidance of triggers recommended- PREDNISONE 10 MG TABLET- tapering dose as directed- BROMPHENIRAMINE-PSEUDOEPHE DRINE-DM 2 MG-30 MG-10 MG/5 ML SYRUP- GUAIFENESIN ER 600 MG TABLET, EXTENDED RELEASE 12 HR- Follow-up with your PCP in 3-5 days if symptoms have not improved orsooner if symptoms worsen- Discussed red flags and need for immediate medical evaluation if anyoccur.- Discussed supportive care treatment with fluids, rest and analgesia.- Discussed expected course of illnessMildred Douglas APRN.GRAIN DRIER Normal [facility] ED NOTEon 10-24-2017 ED NOTE HNO ID: [id number] Author: Barbara (Rn) Gino RN Service: Emergency Medicine Author Type: Registered Nurse Type: ED Notes Filed: 10/24/2017 1:18 AM Note Text: RT at bedside for treatments. Normal [facility] ED NOTE HNO ID: [id number] thor: Barbara DayRn) CARLO Christianervice: Emergency MedicineAuthor Type: Registered NurseType: ED NotesFiled: 10/24/2017 1:16 AMNote Text: Patient informed: the name of medication, why we are giving it, possibleside effects, what they may expect to feel, and was offered a chance toask questions, prior to the administration of kenalog. Normal [facility] ED PROV NOTEon 10-24-2017 Protein mass conc HNO ID: [id number] thor: ANGELITA Caroervice: Emergency MedicineAuthor Type: PhysicianType: ED Provider NotesFiled: 10/24/2017 1:18 AMNote Text:ED Provider NotePatient Name: Jaime VegaMRN: [id number] DATE: 10/24/17HistoryPatient presents with:CoughShortness of Oxzfgr19 sexual male, history of asthma, anxiety, presents with feeling short ofbreath, coughing, and tightness in his chest over several days despiteusing home asthma medications. Nonproductive cough. No documentedfevers. No chills, nausea, vomiting, diarrhea, constipation. No otherupper respiratory symptoms other than odd fullness sensation in the rightear at times. No sore throat. No sinus congestion or drainage. Sonshave asthma, and have been doing well. No one else around him ill. Nounusual travel. No DVT or PE risk factors. He has had no recentadmissions for asthma, and no prior ICU admissions or intubations for hisasthma. Denies smoking tobacco, but uses chew tobacco.PAST MEDICAL HISTORYDiagnosis Date- Abdominal pain- Anxiety- Asthma- DepressionPAST SURGICAL HISTORYProcedure Laterality Date- COLONOSCOP W/ OR W/O BRSH SPEC 08/21/15 Colonoscopy with mac- EGD W/O OR W/BRUSH/WASH 08/21/15 EGD with mac- PAST SURGICAL HISTORY OF fatty cyst removed from stomach- PAST SURGICAL HISTORY OF wisdom teethFAMILY HISTORYProblem Relation Age of Onset- Heart Father- colitis [Other] [OTHER] Father- Colon Cancer Father- autism [Other] [OTHER] Son GI issues/ear problems/adhdSocial HistorySocial History Main Topics- Smoking status: Former Smoker- Smokeless tobacco: Current User Types: Chew- Alcohol use No- Drug use: No- Sexual activity: Not on fileALLERGIESAllergen Reactions- Acetaminophen-Codei* Rash- Seasonal Allergies Unknown CATS, DOGS, COCKROACHES, MOLDS, TREES, GRASSES, WEEDS AND RAGWEEDVERIFIED BY SKIN TESTINGReview of SystemsConstitutional: Negative. Negative for diaphoresis and fever.HENT: Positive for ear pain. Negative for dental problem, rhinorrhea andsore throat. Full sensation in right ear.Eyes: Negative. Negative for pain and discharge.Respiratory: Positive for cough, chest tightness and shortness of breath.Negative for wheezing.Cardiovascular: Negative. Negative for chest pain, palpitations and legswelling.Gastrointestin al: Negative. Negative for abdominal pain, diarrhea, nauseaand vomiting.Endocrine: Negative for polyphagia and polyuria.Genitourinary: Negative. Negative for difficulty urinating, dysuria,frequency and urgency.Musculoskeletal: Negative. Negative for back pain, gait problem and neckpain.Skin: Negative. Negative for rash and wound.Allergic/Immunologic : Negative for immunocompromised state.Neurological: Negative for dizziness, weakness and headaches.Hematological: Does not bruise/bleed easily.Psychiatric/Behavio ral: Negative. Negative for agitation and confusion.All other systems reviewed and are negative.Physical ExamBP 142/80 Pulse 82 Temp (Src) 97 (Temporal Artery) Resp 20 Ht 5'9 (1.75m) Wt 230 lb (104.3kg) SpO2 99% BMI 33.95 kg/(m2).Physical ExamConstitutional: He is oriented to person, place, and time. He appearswell-developed and well-nourished. No distress.HENT:Head: Normocephalic and atraumatic.Mouth/Throat: No oropharyngeal exudate.Small amount of fluid behind right ear, but no otitis media appreciated oneither side. ENT examination otherwise benign.Eyes: EOM are normal. Pupils are equal, round, and reactive to light.Right eye exhibits no discharge. Left eye exhibits no discharge.Neck: Normal range of motion. Neck supple. No tracheal deviation present.Cardiovascular: Normal rate, regular rhythm, normal heart sounds andintact distal pulses.No murmur heard.Pulmonary/Chest: Effort normal. No stridor. No respiratory distress. Hehas wheezes. He has no rales.Very rare occasional wheeze. Good air movement overall. Noconsolidation. Absolutely no respiratory distress. Speaking fullsentences.Abdominal: Soft. Bowel sounds are normal. He exhibits no distension. Thereis no tenderness.Musculoskeletal : Normal range of motion. He exhibits no edema ordeformity.Neurological: He is alert and oriented to person, place, and time.Coordination normal.CN II-VII intact, swallowing intactSkin: Skin is warm and dry. No rash noted.Psychiatric: He has a normal mood and affect. Judgment normal.Nursing note and vitals reviewed.Diagnostic TestingED Labs Ordered and Reviewed - No data to displayProceduresMedical Decision MakingMDMPatient presents with upper respiratory symptoms, likely mild asthmaexacerbation with tightness in his chest. He states this feels similar toprior asthma exacerbations when he has required steroids. Again, norespiratory distress overall. Does not likely require admission. Will begiven Kenalog IM. Aerosol treatments in the ED. Pen instability, he willbe discharged. Continuation of home therapy including inhaler use as wellas nebulizers as needed. Return for worsening symptoms. Follow-up withphysician for recheck.ED Course / Clinical ImpressionClinical Impressions as of Oct 24 011Mild asthma with exacerbation, unspecified whether persistentPlanThe patient was DISCHARGED: Counseled patient regarding suspecteddiagnosis AND need for follow-up. Discharged home with verbal and writteninstructions. They were instructed to return as needed for persistent orworsening symptoms or any new concerns.Condition at time of disposition: improved and stableSIGNATURE: Aly Garcia MD10/24/17 0117Elia Stevens MD10/24/17 0118 Normal [facility] CNOVon 07-22-2017 CNOV Office Visit (ALL[facility]) JAIME VEGA ([id number]) 1980 MDate Time Provider Department07/22/17 10:00 AM KYLIE TERRY During your visit today, we recorded the following information about you: Pulse Blood pressure Weight 79/minute 115/69 106.1 kgCarinaschuyler Keagan Reyna RN 07/22/2017 10:09 AM SignedPatient states asthma well controlled with Breo inhaler. No complaints. Askingfor refill omeprazole due to trying to find new PCP.Kylie Terry MD 07/22/2017 1:04 PM Cayetano Vega is a 36 year old male with a history of allergic rhinitis (cats,dogs, cockroach, dust mites, molds, trees, grasses, weeds, ragweed), mildpersistent asthma and GERD who presents for a follow-up visit. [facility] Methacholine challenge test completed 01/15/17 showed a 25%drop in FEV1 at a methacholine concentration of 10 mg per mL. Spirometrycompleted on 01/05/17 was normal including a normal appearing flow volume loop.After the methacholine challenge test was completed, Dulera 100 was prescribed. He discontinued use of Dulera due to chest pain. Advair was denied by hisinsurance. In mid February, he started Breo Ellipta 200?25 one inhalation oncedaily. His asthma symptoms have improved significantly with this medication.Denies significant cough, wheezing, chest tightness or shortness of breath.Uses albuterol 1-2 times per week for acute symptoms. Nocturnal awakenings dueto respiratory symptoms 1-2 nights in the past month. Denies treatment withsystemic corticosteroids, ER visits or hospitalizations for asthma since hislast visit. Pneumovax is up-to-date.He complains of continued problems with snoring. Also complains of daytimefatigue. Occasional headaches. Sleep study completed 2 years ago at [facility] [place] was normal per the patient but he remains concerned that hemay have sleep apnea. He denies significant weight gain since having theinitial sleep study completed.He denies significant nasal and ocular symptoms. Symptoms typically worsen inthe spring. Using fluticasone nasal spray as needed only.He takes omeprazole 40 mg approx every other day for GERD. Requests a refillat today's visit so that he may continue this medication until he is able toestablish care with a primary care physician.There is one dog in the home. The dog is allowed in the bedroom. No cats.Dust mite precautions have not been instituted in the home.Patient's son Abe is a patient in this office.(From initial visit January 05, 2017:This is a self-referral for an allergy and immunology evaluation.Jaime Vega is a 36 year old male who presents for further evaluation of asthmaand inhalant allergies. He has a history of asthma since childhood. Symptomsinclude chest tightness shortness of breath, occasional wheezing and occasionalcough. He uses an albuterol HFA inhaler without a spacer or albuterolnebulized 4-6 times per day for acute symptoms. Denies prior use of dailycontroller medications for asthma. Denies treatment with systemic steroids forasthma in the past year. Denies emergency room visits for asthma as an adult.Most recent hospitalization for asthma was in childhood. Denies prior ICU orintubation. Influenza vaccine and Pneumovax are not up-to-date. Asthmatriggers include exercise, upper respiratory infection, strong odors, coldtemperatures and change of seasons.He also has symptoms of itchy eyes, watery eyes, clear rhinorrhea, nasalcongestion, sneezing. Associated symptoms include fatigue. These symptoms areperennial with seasonal exacerbation in the spring. Current triggers includeexposure to cat. The patient has been suffering from these symptoms severalyear(s). The patient has tried Zyrtec +/- relief. Immunotherapy has neverbeen tried.He has a history of GERD for which he takes Prilosec as needed. Symptoms occur2-3 times per week. 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.Patient's son Abe is a patient in this office.)REVIEW OF SYSTEMS:Negative for fevers, chills, night sweats and unintentional weight loss.Negative for skin rash and skin lesionsAll other review of systems negative except for those listed above.PAST MEDICAL HISTORYDiagnosis Date- Abdominal pain- Anxiety- Asthma- DepressionMEDICATIONS:Omep razole 40 mg capsule Take 1 capsule by mouth once daily.fluticasone (FLONASE) 50 mcg/actuation nasal spray Use 2 Sprays in each nostrilonce daily.VENTOLIN HFA 90 mcg/actuation inhaler INHALE 2 PUFFS DIRECTED EVERY 4 HOURSAS NEEDED FOR WHEEZING or SHORTNESS OF BREATHfluticasone-vilanter ol (BREO ELLIPTA) 200-25 mcg/dose inhaler Inhale 1Inhalation as instructed once daily. Rinse mouth out after use.cloNIDine HCl (CATAPRES) 0.1 mg tablet Take 0.1 mg by mouth twice daily.citalopram (CELEXA) 20 mg tablet citalopram 20 mg tabletcetirizine (ZYRTEC) 10 mg tablet Take 1 tablet by mouth once daily as needed.ketotifen fumarate (ZADITOR) 0.025 % (0.035 %) ophthalmic solution One drop toeach eye 2 to 3 times a day as needed.Omeprazole 40 mg capsule Take 1 capsule by mouth once daily.ALLERGIES: Allergies As of Date: 07/22/2017Allergen Noted ReactionSEASONAL ALLERGIES 01/05/2017 UnknownFully Assessed 07/22/2017PAST SURGICAL HISTORYProcedure Laterality Date- COLONOSCOP W/ OR W/O [facility] SPEC 08/21/15 Colonoscopy with mac- EGD W/O OR W/BRUSH/WASH 08/21/15 EGD with mac- PAST SURGICAL HISTORY OF fatty cyst removed from stomach- PAST SURGICAL HISTORY OF wisdom teethFAMILY HISTORY:Allergic rhinitis:yes: P Uncle.Asthma: no.Eczema: no.Cystic fibrosis: no.Immunodeficiency: no.SOCIAL HISTORY:Marital status: MarriedChildren: sons ages 8 yr and 9 yrOccupation: warehouse settingSmoking: Current smoker. Chews dailyENVIRONMENTAL HISTORY: Lives in a houseAge of home: 100 yearsHeating: gas , electricWoodburning fireplace in the home: noAir conditioning: Window air conditioningBasement: Damp basementFlooring: [id number] carpetingDust mite controls: Dust mite controls are not in place.Pets in the home: 1 dogsOutdoor animals: There are no outdoor animalsTobacco smoke: nonePhysical Exam:GENERAL APPEARANCE:Well appearing, alert, in no acute distress, well-hydrated,well nourished.HEENT: NCAT.EYES:Mild conjunctival injection of both eyesEARS: External ears normal. Canals clear. TM's normal.NOSE/SINUS:mild edema of the nasal mucosa with scant clear secretionsbilaterallyTHROA T: no erythemaNECK:neck supple, no adenopathyHEART:RRR with normal S1 and S2 ,no murmurs, no gallops, no rubsLUNGS: clear to auscultation bilaterally, no wheezes, rales or rhonchiABDOMEN:soft, nontender, nondistended, without organomegaly or palpable massesEXTREMITIES:Extremit ies normal, No deformities, No skin discoloration and NoedemaSKIN: Skin color, texture, turgor normal. No rashes or lesions.ALLERGY SKIN TESTS:Positive to cats, dogs, cockroach, dust mites, molds, trees,grasses, weeds, ragweed on prick testing. Spirometry pre-and postbronchodilator on January 05, 2017: Normal. Of note,patient used albuterol shortly prior to the test.Exhaled nitric oxide on January 05, 2017: 19 PPBMethacholine challenge test on January 16, 2017: Positive with a 25% drop inFEV1 at a methacholine concentration of 10 mg per mL.ASSESSMENT/PLAN:1.) Mild persistent asthmaContinue Breo Ellipta 200?25 one inhalation once daily.Continue albuterol hfa inhaler (Proventil, Ventolin, Proair) with spacer 2puffs every four hours as needed for cough, wheezing, chest tightness orshortness of breath. May also use 2 puffs 15-20 minutes pre-exercise.He should receive an annual influenza vaccine.2.) Allergic rhinitisAggressive environmental controls.Exposure to cats and dogs should be minimized. Ideally, the dog should beremoved in the home.Dust mite precautions should be instituted in the home.Environmental controls for the molds and pollens were also discussed.Recommend regular use of fluticasone nasal spray 2 sprays each nostril oncedaily from at least the beginning of July through the first fields in thefall/early winter.Start Zyrtec 10 mg once daily as needed.Start Zaditor one drop to each eye 2-3 times a day as needed.Depending on clinical course, subcutaneous allergy immunotherapy is a treatmentoption that may be strongly considered.3.) GERD:Continue Prilosec 40 mg once daily as needed.Potential side effects of PPI's were discussed with the patient.Patient will discuss further with his PCP when he establishes care and I willthen recommend that he get further refills from his PCP if treatment iscontinued.4.) Snoring, obesity and daytime fatigue:PSG will be obtained to evaluate further for possible obstructive sleep apnea.5.) Discussed medication dosage, usage, side effects, and goals of treatmentin detail.6.) Follow-up in 3-4 months. - patient will return sooner should new symptomsor problems arise. Depending on clinical course, may change to Breo-[id number] at that timeSChloé Hernandez Provider: KYLIE TERRY [[id number]]Allergies As of Date: 07/22/2017 Noted Allergy ReactionSEASONAL ALLERGIES 01/05/2017 16 - Unknown Comments: CATS, DOGS, COCKROACHES, MOLDS, TREES, GRASSES, WEEDS AND RAGWEED VERIFIED BY SKIN TESTINGDate Reviewed: 07/22/2017Reviewed by: Kylie Terry - Fully AssessedReason for Visit: Established Patient [175] Cmt: f/u asthmaPrimary Visit Diagnosis:Allergic rhinitis due to animal hair and dander [J30.81] Other Visit Diagnoses:Allergic rhinitis due to dust mite [J30.89] Seasonal allergic rhinitis due to pollen [J30.1] Seasonal allergic rhinitis due to fungal spores [J30.89] Mild persistent asthma without complication [J45.30] Snoring [R06.83]Order(s):Omeprazol e 40 mg capsuleTake 1 capsule by mouth once daily.Disp: 30 capsuleRfl: 5 fluticasone (FLONASE) 50 mcg/actuation nasal sprayUse 2 Sprays in each nostril once daily.Disp: 1 BottleRfl: 11 POLYSOMNOGRAM (PSG)/HOME SLEEP APNEA TESTING (HSAT) [[id number]] Order #: [id number] FUTUREPrescriptions as of 07/22/2017 Sig: OMEPRAZOLE 40 MG CAPSULE,BETO* Take 1 capsule by mouth once * FLUTICASONE 50 MCG/ACTUATION * Use 2 Sprays in each nostril * VENTOLIN HFA 90 MCG/ACTUATION* INHALE 2 PUFFS DIRECTED EV* FLUTICASONE 200 MCG-VILANTERO* Inhale 1 Inhalation as instru* CLONIDINE HCL 0.1 MG TABLET Take 0.1 mg by mouth twice da* CITALOPRAM 20 MG TABLET citalopram 20 mg tablet CETIRIZINE 10 MG TABLET Take 1 tablet by mouth once d* KETOTIFEN 0.025 % (0.035 %) E* One drop to each eye 2 to 3 t* OMEPRAZOLE 40 MG CAPSULE,BETO* Take 1 capsule by mouth once *Problem List As Of Date 07/22/2017 Noted Resolved Right upper quadrant abdominal pain [R10.11] INVALID FOR* Nausea [R11.0] INVALID FOR* Bloating symptom [R14.0] INVALID FOR* Mild persistent asthma without complication [J4*INVALID FOR* Anxiety and depression [F41.8] INVALID FOR* Allergic rhinitis due to animal hair and dander*INVALID FOR* Allergic rhinitis due to dust mite [J30.89] INVALID FOR* Seasonal allergic rhinitis due to pollen [J30.1]INVALID FOR* Seasonal allergic rhinitis due to fungal spores*INVALID FOR*Visit Notes:>> Alanna Bella RN Yessi Jul 22, 2017 9:48 AM Status: SignedPatient states asthma well controlled with Breo inhaler. No complaints.Asking for refill omeprazole due to trying to find new PCP.Prescriptions ordered this encounter Disp Refills Start End OMEPRAZOLE 40 MG CAPSULE,DELAYED REL* 30 c* 5 07/22/2017 Route: ORAL Sig: Take 1 capsule by mouth once daily. FLUTICASONE 50 MCG/ACTUATION NASAL S* 1 Kodi* 11 07/22/2017 Route: EACH NOSTRIL Sig: Use 2 Sprays in each nostril once daily.Medications Discontinued During This Encounter fluticasone-salmeterol HFA (ADVAIR) * 1 In* 11 03/11/2017 07/22/2017 Route: INHALATION Sig: Inhale 2 Puffs as instructed twice daily. Use with spacer. Rinse mouth out after use. Disc: Changing Therapy/Dosage Form mometasone-formoterol (DULERA) 100-5* 1 In* 11 01/21/2017 07/22/2017 Route: INHALATION Sig: Inhale 2 Puffs as instructed twice daily. Use with spacer. Rinse mouth out after use. Disc: Changing Therapy/Dosage Form ALBUTEROL SULFATE (VENTOLIN INHALATI* 07/22/2017 Class: Historical Med Route: INHALATION Sig: Inhale 1 Puff as instructed as needed. Disc: Duplicate Entry fluticasone (FLONASE) 50 mcg/actuati* 1 Kodi* 11 01/05/2017 07/22/2017 Route: EACH NOSTRIL Sig: Use 2 Sprays in each nostril once daily. Disc: Reason for discontinue is not on file. Cosign accepted by KYLIE TERRY MD[[id number]] on 01/07/2017 8:01 AMDisposition: Return in about 3 months (around 10/22/2017).Follow-up and Disposition History RecordedEncounter Number: [id number] Status:Closed by KYLIE TERRY MD on 07/22/17 Normal [facility] PROGRESSon 07-22-2017 Protein mass conc HNO ID: [id number] thor: Kylie GutierrezidaService: (none)Author Type: PhysicianType: Progress NotesFiled: 07/22/2017 1:04 PMNote Text:Jaime Vega is a 36 year old male with a history of allergic rhinitis (cats,dogs, cockroach, dust mites, molds, trees, grasses, weeds, ragweed), mildpersistent asthma and GERD who presents for a follow-up visit. Last visitwas January 05, 2017. Methacholine challenge test completed 01/15/17 showeda 25% drop in FEV1 at a methacholine concentration of 10 mg per mL.Spirometry completed on 01/05/17 was normal including a normal appearingflow volume loop.After the methacholine challenge test was completed, Dulera 100 wasprescribed. He discontinued use of Dulera due to chest pain. Advair wasdenied by his insurance. In mid February, he started Breo Ellipta 200?25one inhalation once daily. His asthma symptoms have improvedsignificantly with this medication. Denies significant cough, wheezing,chest tightness or shortness of breath. Uses albuterol 1-2 times per weekfor acute symptoms. Nocturnal awakenings due to respiratory symptoms 1-2nights in the past month. Denies treatment with systemic corticosteroids,ER visits or hospitalizations for asthma since his last visit. Pneumovaxis up-to-date.He complains of continued problems with snoring. Also complains ofdaytime fatigue. Occasional headaches. [facility] normal per the patient but he remainsconcerned that he may have sleep apnea. He denies significant weight gainsince having the initial sleep study completed.He denies significant nasal and ocular symptoms. Symptoms typicallyworsen in the spring. Using fluticasone nasal spray as needed only.He takes omeprazole 40 mg approx every other day for GERD. Requests arefill at today's visit so that he may continue this medication until heis able to establish care with a primary care physician.There is one dog in the home. The dog is allowed in the bedroom. Nocats. Dust mite precautions have not been instituted in the home.Patient's son Abe is a patient in this office.(From initial visit January 05, 2017:This is a self-referral for an allergy and immunology evaluation.Jaime Vega is a 36 year old male who presents for further evaluation ofasthma and inhalant allergies. He has a history of asthma sincechildhood. Symptoms include chest tightness shortness of breath,occasional wheezing and occasional cough. He uses an albuterol HFAinhaler without a spacer or albuterol nebulized 4-6 times per day foracute symptoms. Denies prior use of daily controller medications forasthma. Denies treatment with systemic steroids for asthma in the pastyear. Denies emergency room visits for asthma as an adult. Most recenthospitalization for asthma was in childhood. Denies prior ICU orintubation. Influenza vaccine and Pneumovax are not up-to-date. Asthmatriggers include exercise, upper respiratory infection, strong odors, coldtemperatures and change of seasons.He also has symptoms of itchy eyes, watery eyes, clear rhinorrhea, nasalcongestion, sneezing. Associated symptoms include fatigue. These symptomsare perennial with seasonal exacerbation in the spring. Current triggersinclude exposure to cat. The patient has been suffering from thesesymptoms several year(s). The patient has tried Zyrtec +/- relief.Immunotherapy has never been tried.He has a history of GERD for which he takes Prilosec as needed. Symptomsoccur 2-3 times per week. 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.Patient's son Abe is a patient in this office.)REVIEW OF SYSTEMS:Negative for fevers, chills, night sweats and unintentional weight loss.Negative for skin rash and skin lesionsAll other review of systems negative except for those listed above.PAST MEDICAL HISTORYDiagnosis Date- Abdominal pain- Anxiety- Asthma- DepressionMEDICATIONS:Omep razole 40 mg capsule Take 1 capsule by mouth once daily.fluticasone (FLONASE) 50 mcg/actuation nasal spray Use 2 Sprays in eachnostril once daily.VENTOLIN HFA 90 mcg/actuation inhaler INHALE 2 PUFFS DIRECTED EVERY 4HOURS NEEDED FOR WHEEZING or SHORTNESS OF BREATHfluticasone-vilanter ol (BREO ELLIPTA) 200-25 mcg/dose inhaler Inhale 1Inhalation as instructed once daily. Rinse mouth out after use.cloNIDine HCl (CATAPRES) 0.1 mg tablet Take 0.1 mg by mouth twice daily.citalopram (CELEXA) 20 mg tablet citalopram 20 mg tabletcetirizine (ZYRTEC) 10 mg tablet Take 1 tablet by mouth once daily asneeded.ketotifen fumarate (ZADITOR) 0.025 % (0.035 %) ophthalmic solution Onedrop to each eye 2 to 3 times a day as needed.Omeprazole 40 mg capsule Take 1 capsule by mouth once daily.ALLERGIES: Allergies As of Date: 07/22/2017Allergen Noted ReactionSEASONAL ALLERGIES 01/05/2017 UnknownFully Assessed 07/22/2017PAST SURGICAL HISTORYProcedure Laterality Date- COLONOSCOP W/ OR W/O [facility] SPEC 08/21/15 Colonoscopy with mac- EGD W/O OR W/BRUSH/WASH 08/21/15 EGD with mac- PAST SURGICAL HISTORY OF fatty cyst removed from stomach- PAST SURGICAL HISTORY OF wisdom teethFAMILY HISTORY:Allergic rhinitis:yes: P Uncle.Asthma: no.Eczema: no.Cystic fibrosis: no.Immunodeficiency: no.SOCIAL HISTORY:Marital status: MarriedChildren: sons ages 8 yr and 9 yrOccupation: warehouse settingSmoking: Current smoker. Chews dailyENVIRONMENTAL HISTORY: Lives in a houseAge of home: 100 yearsHeating: gas , electricWoodburning fireplace in the home: noAir conditioning: Window air conditioningBasement: Damp basementFlooring: [id number] carpetingDust mite controls: Dust mite controls are not in place.Pets in the home: 1 dogsOutdoor animals: There are no outdoor animalsTobacco smoke: nonePhysical Exam:GENERAL APPEARANCE:Well appearing, alert, in no acute distress,well-hydrated, well nourished.HEENT: NCAT.EYES:Mild conjunctival injection of both eyesEARS: External ears normal. Canals clear. TM's normal.NOSE/SINUS:mild edema of the nasal mucosa with scant clear secretionsbilaterallyTHROA T: no erythemaNECK:neck supple, no adenopathyHEART:RRR with normal S1 and S2 ,no murmurs, no gallops, no rubsLUNGS: clear to auscultation bilaterally, no wheezes, rales or rhonchiABDOMEN:soft, nontender, nondistended, without organomegaly or palpablemassesEXTREMITIES: Extremities normal, No deformities, No skin discoloration andNo edemaSKIN: Skin color, texture, turgor normal. No rashes or lesions.ALLERGY SKIN TESTS:Positive to cats, dogs, cockroach, dust mites, molds,trees, grasses, weeds, ragweed on prick testing. Spirometry pre-and postbronchodilator on January 05, 2017: Normal. Ofnote, patient used albuterol shortly prior to the test.Exhaled nitric oxide on January 05, 2017: 19 PPBMethacholine challenge test on January 16, 2017: Positive with a 25% dropin FEV1 at a methacholine concentration of 10 mg per mL.ASSESSMENT/PLAN:1.) Mild persistent asthmaContinue Breo Ellipta 200?25 one inhalation once daily.Continue albuterol hfa inhaler (Proventil, Ventolin, Proair) with spacer 2puffs every four hours as needed for cough, wheezing, chest tightness orshortness of breath. May also use 2 puffs 15-20 minutes pre-exercise.He should receive an annual influenza vaccine.2.) Allergic rhinitisAggressive environmental controls.Exposure to cats and dogs should be minimized. Ideally, the dog should beremoved in the home.Dust mite precautions should be instituted in the home.Environmental controls for the molds and pollens were also discussed.Recommend regular use of fluticasone nasal spray 2 sprays each nostrilonce daily from at least the beginning of July through the first fields inthe fall/early winter.Start Zyrtec 10 mg once daily as needed.Start Zaditor one drop to each eye 2-3 times a day as needed.Depending on clinical course, subcutaneous allergy immunotherapy is atreatment option that may be strongly considered.3.) GERD:Continue Prilosec 40 mg once daily as needed.Potential side effects of PPI's were discussed with the patient.Patient will discuss further with his PCP when he establishes care and Iwill then recommend that he get further refills from his PCP if treatmentis continued.4.) Snoring, obesity and daytime fatigue:PSG will be obtained to evaluate further for possible obstructive sleepapnea.5.) Discussed medication dosage, usage, side effects, and goals oftreatment in detail.6.) Follow-up in 3-4 months. - patient will return sooner should newsymptoms or problems arise. Depending on clinical course, may change toBreo-Ellipta 100?25 at that timeSmarcelina Terry MD Normal [facility] OBSOLETEon 06-01-2017 OBSOLETE Refill (ALLMED) JAIME VEGA ([id number]) 1980 MDate Time Provider Department06/01/17 KYLIE TERRY During your visit today, we recorded the following information about you:Alanna Bella RN 06/01/2017 3:56 PM SignedPatient has been identified by name and date of : Gus [id number] Prescriptions Disp Refills VENTOLIN HFA 90 MCG/ACTUATION AEROSOL INHALER 1 Inhaler 2 Sig: INHALE 2 PUFFS DIRECTED EVERY 4 HOURS NEEDED FOR WHEEZING orSHORTNESS OF BREATH CLIFTON: YesRX INSTRUCTIONS:Pharmacy initiated this request. No need to notify patient.Alanna Barajas MD 06/01/2017 4:33 PM SignedThe following approved medication requests have been transmitted electronically.Signed Prescriptions Disp Refills VENTOLIN HFA 90 mcg/actuation inhaler 1 Inhaler 2 Sig: INHALE 2 PUFFS DIRECTED EVERY 4 HOURS NEEDED FOR WHEEZING orSHORTNESS OF BREATH CLIFTON: No Authorizing Provider: KYLIE TERRY MDAllergies As of Date: 06/01/2017 Noted Allergy ReactionSEASONAL ALLERGIES 01/05/2017 16 - Unknown Comments: CATS, DOGS, COCKROACHES, MOLDS, TREES, GRASSES, WEEDS AND RAGWEED VERIFIED BY SKIN TESTINGDate Reviewed: 01/05/2017Reviewed by: Ashley Rios RN - Fully AssessedReason for Visit: Refill Request [94]Order(s):VENTOLIN HFA 90 mcg/actuation inhalerINHALE 2 PUFFS DIRECTED EVERY 4 HOURS NEEDED FOR WHEEZING or SHORTNESS OF BREATHDisp: 1 InhalerRfl: 2Prescriptions as of 06/01/2017 Sig: VENTOLIN HFA 90 MCG/ACTUATION* INHALE 2 PUFFS DIRECTED EV* FLUTICASONE 200 MCG-VILANTERO* Inhale 1 Inhalation as instru* FLUTICASONE-SALMETEROL 115 MC* Inhale 2 Puffs as instructed * MOMETASONE-FORMOTEROL HFA 100* Inhale 2 Puffs as instructed * CLONIDINE HCL 0.1 MG TABLET Take 0.1 mg by mouth twice da* CITALOPRAM 20 MG TABLET citalopram 20 mg tablet FLUTICASONE 50 MCG/ACTUATION * Use 2 Sprays in each nostril * CETIRIZINE 10 MG TABLET Take 1 tablet by mouth once d* KETOTIFEN 0.025 % (0.035 %) E* One drop to each eye 2 to 3 t* OMEPRAZOLE 40 MG CAPSULE,BETO* Take 1 capsule by mouth once * VENTOLIN INHALATION Inhale 1 Puff as instructed a*Problem List As Of Date 06/01/2017 Noted Resolved Right upper quadrant abdominal pain [R10.11] INVALID FOR* Nausea [R11.0] INVALID FOR* Bloating symptom [R14.0] INVALID FOR* Mild persistent asthma without complication [J4*INVALID FOR* Anxiety and depression [F41.8] INVALID FOR*Prescriptions ordered this encounter Disp Refills Start End VENTOLIN HFA 90 MCG/ACTUATION AEROSO* 1 In* 2 06/01/2017 Sig: INHALE 2 PUFFS DIRECTED EVERY 4 HOURS NEEDED FOR WHEEZING or SHORTNESS OF BREATHMedications Discontinued During This Encounter albuterol HFA (PROVENTIL HFA, VENTOL* 1 In* 1 01/12/2017 06/01/2017 Route: INHALATION Sig: Inhale 2 Puffs as instructed every 4 hours as needed (for wheezing and shortness of breath). Disc: Reason for discontinue is not on file. Status:Closed by ALANNA BELLA RN on 06/02/17 Normal [facility] Vital Signs Date Time Vital Sign Value Performing Clinician Daisha gomez 01-01-2025 15:11-0400 Body mass index (BMI) [Ratio] 35.5 kg/m2 Alyse Magana APRN.CNP Work Phone: [facility] 01-01-2025 15:11-0400 Body temperature 98.1 [degF] Alyse Magana APRN.TIFFANY Work Phone: [facility] 01-01-2025 15:11-0400 Body weight 109.05 kg Alyse Magana APRN.CNP Work Phone: [facility] 01-01-2025 15:11-0400 Diastolic blood pressure 78 mm[Hg] Alyse Magana APRN.CNP Work Phone: [facility] 01-01-2025 15:11-0400 Heart rate 73 /min Alyse Magana APRN.CNP Work Phone: [facility] 01-01-2025 15:11-0400 Respiratory rate 18 /min Alyse John OIL PIPE INSPECTOR HELPER.GRAIN DRIER Work Phone: [facility] 01-01-2025 15:11-0400 SaO2% (BldA) [Mass fraction] 100 % Alyse John OIL PIPE INSPECTOR HELPER.GRAIN DRIER Work Phone: [facility] 01-01-2025 15:11-0400 Systolic blood pressure 125 mm[Hg] Alyse John OIL PIPE INSPECTOR HELPER.GRAIN DRIER Work Phone: [facility] 12-18-2024 15:32-0400 Body mass index (BMI) [Ratio] 36.06 kg/m2 Conor Pantoja MD Work Phone: [facility] 12-18-2024 15:32-0400 Body temperature 97.9 [degF] Conor Pantoja MD Work Phone: [facility] 12-18-2024 15:32-0400 Body weight 110.77 kg Conor Pantoja MD Work Phone: [facility] 12-18-2024 15:32-0400 Diastolic blood pressure 80 mm[Hg] Conor Pantoja MD Work Phone: [facility] 12-18-2024 15:32-0400 Heart rate 81 /min Conor Pantoja MD Work Phone: [facility] 12-18-2024 15:32-0400 SaO2% (BldA) [Mass fraction] 96 % Conor Pantoja MD Work Phone: [facility] 12-18-2024 15:32-0400 Systolic blood pressure 118 mm[Hg] Conor Pantoja MD Work Phone: [facility] 07-17-2024 15:00-0500 Body height 175.3 cm Conor Pantoja MD Work Phone: [facility] 07-17-2024 15:00-0500 Body mass index (BMI) [Ratio] 35.59 kg/m2 Conor Pantoja MD Work Phone: [facility] 07-17-2024 15:00-0500 Body temperature 98.01 [degF] Conor Pantoja MD Work Phone: [facility] 07-17-2024 15:00-0500 Body weight 109.32 kg Conor Pantoja MD Work Phone: [facility] 07-17-2024 15:00-0500 Diastolic blood pressure 62 mm[Hg] Conor Pantoja MD Work Phone: [facility] 07-17-2024 15:00-0500 Heart rate 91 /min Conor Pantoja MD Work Phone: [facility] 07-17-2024 15:00-0500 SaO2% (BldA) [Mass fraction] 97 % Conor Pantoja MD Work Phone: [facility] 07-17-2024 15:00-0500 Systolic blood pressure 114 mm[Hg] Conor Pantoja MD Work Phone: [facility] 05-15-2024 15:28-0500 Body height 175.3 cm Pacc 1 Work Phone: [facility] 05-15-2024 15:28-0500 Body mass index (BMI) [Ratio] 36.03 kg/m2 Pacc 1 Work Phone: [facility] 05-15-2024 15:28-0500 Body temperature 97.7 [degF] Pacc 1 Work Phone: [facility] 05-15-2024 15:28-0500 Body weight 110.68 kg Pacc 1 Work Phone: [facility] 05-15-2024 15:28-0500 Diastolic blood pressure 80 mm[Hg] Pacc 1 Work Phone: [facility] 05-15-2024 15:28-0500 Heart rate 79 /min Pacc 1 Work Phone: [facility] 05-15-2024 15:28-0500 Respiratory rate 14 /min Pacc 1 Work Phone: [facility] 05-15-2024 15:28-0500 SaO2% (BldA) [Mass fraction] 97 % Pacc 1 Work Phone: [facility] 05-15-2024 15:28-0500 Systolic blood pressure 118 mm[Hg] [facility] 1 Work Phone: [facility] 04-17-2024 08:42-0500 Body height 175.3 cm Silas Brown MD Work Phone: [facility] 04-17-2024 08:42-0500 Body mass index (BMI) [Ratio] 36.17 kg/m2 Silas Brown MD Work Phone: [facility] 04-17-2024 08:42-0500 Body weight 111.1 kg Silas Brown MD Work Phone: [facility] 04-17-2024 08:42-0500 Diastolic blood pressure 92 mm[Hg] Silas Brown MD Work Phone: [facility] 04-17-2024 08:42-0500 Heart rate 95 /min Silas Brown MD Work Phone: [facility] 04-17-2024 08:42-0500 SaO2% (BldA) [Mass fraction] 98 % Silas Brown MD Work Phone: [facility] 04-17-2024 08:42-0500 Systolic blood pressure 147 mm[Hg] Silas Brown MD Work Phone: [facility] 02-17-2024 15:40-0400 Body height 175.3 cm Risa Steiner PA-C Work Phone: [facility] 02-17-2024 15:40-0400 Body mass index (BMI) [Ratio] 35.32 kg/m2 Risa Steiner PA-C Work Phone: [facility] 02-17-2024 15:40-0400 Body weight 108.5 kg Risa Steiner PA-C Work Phone: [facility] 02-17-2024 15:40-0400 Diastolic blood pressure 80 mm[Hg] Risa Steiner PA-C Work Phone: [facility] 02-17-2024 15:40-0400 Heart rate 68 /min Risa Steiner PA-C Work Phone: [facility] 02-17-2024 15:40-0400 SaO2% (BldA) [Mass fraction] 98 % Risa Steiner PA-C Work Phone: [facility] 02-17-2024 15:40-0400 Systolic blood pressure 121 mm[Hg] Risa Steiner PA-C Work Phone: [facility] 01-20-2024 14:30-0400 Body height 174.5 cm Pulm Wstr Work Phone: [facility] 01-20-2024 14:30-0400 Body mass index (BMI) [Ratio] 36.64 kg/m2 Pulm Wstr Work Phone: [facility] 01-20-2024 14:30-0400 Body weight 111.58 kg Pulm Wstr Work Phone: [facility] 01-19-2024 16:04-0400 Body height 175.3 cm Alyse John OIL PIPE INSPECTOR HELPER.GRAIN DRIER Work Phone: [facility] 01-19-2024 16:04-0400 Body mass index (BMI) [Ratio] 36.21 kg/m2 Alyse John OIL PIPE INSPECTOR HELPER.GRAIN DRIER Work Phone: [facility] 01-19-2024 16:04-0400 Body temperature 98.1 [degF] Alyse John OIL PIPE INSPECTOR HELPER.GRAIN DRIER Work Phone: [facility] 01-19-2024 16:04-0400 Body weight 111.22 kg Alyse John OIL PIPE INSPECTOR HELPER.GRAIN DRIER Work Phone: [facility] 01-19-2024 16:04-0400 Diastolic blood pressure 80 mm[Hg] Alyse John OIL PIPE INSPECTOR HELPER.GRAIN DRIER Work Phone: [facility] 01-19-2024 16:04-0400 Heart rate 74 /min Alyse John OIL PIPE INSPECTOR HELPER.GRAIN DRIER Work Phone: [facility] 01-19-2024 16:04-0400 SaO2% (BldA) [Mass fraction] 98 % Alyse Magana OIL PIPE INSPECTOR HELPER.GRAIN DRIER Work Phone: [facility] 01-19-2024 16:04-0400 Systolic blood pressure 130 mm[Hg] Alyse Magana OIL PIPE INSPECTOR HELPER.GRAIN DRIER Work Phone: [facility] 12-29-2023 14:35-0400 Body height 175.3 cm Conor Pantoja MD Work Phone: [facility] 12-29-2023 14:35-0400 Body mass index (BMI) [Ratio] 36.33 kg/m2 Conor Pantoja MD Work Phone: [facility] 12-29-2023 14:35-0400 Body weight 111.58 kg Conor Pantoja MD Work Phone: [facility] 12-29-2023 14:35-0400 Diastolic blood pressure 78 mm[Hg] Conor Pantoja MD Work Phone: [facility] 12-29-2023 14:35-0400 Heart rate 91 /min Conor Pantoja MD Work Phone: [facility] 12-29-2023 14:35-0400 SaO2% (BldA) [Mass fraction] 99 % Conor Pantoja MD Work Phone: [facility] 12-29-2023 14:35-0400 Systolic blood pressure 132 mm[Hg] Conor Pantoja MD Work Phone: [facility] 12-06-2023 14:39-0400 Body mass index (BMI) [Ratio] 36.48 kg/m2 Risa Campa MD Work Phone: [facility] 12-06-2023 14:39-0400 Body weight 112.04 kg Risa Campa MD Work Phone: [facility] 12-06-2023 14:39-0400 Diastolic blood pressure 93 mm[Hg] Risa Campa MD Work Phone: [facility] 12-06-2023 14:39-0400 Heart rate 91 /min Risa Campa MD Work Phone: [facility] 12-06-2023 14:39-0400 SaO2% (BldA) [Mass fraction] 98 % Risa Campa MD Work Phone: [facility] 12-06-2023 14:39-0400 Systolic blood pressure 141 mm[Hg] Risa Campa MD Work Phone: [facility] 11-22-2023 13:10-0400 Body height 175.3 cm Conor Pantoja MD Work Phone: [facility] 11-22-2023 13:10-0400 Body mass index (BMI) [Ratio] 36.03 kg/m2 Conor Pantoja MD Work Phone: [facility] 11-22-2023 13:10-0400 Body weight 110.68 kg Conor Pantoja MD Work Phone: [facility] 11-22-2023 13:10-0400 Diastolic blood pressure 90 mm[Hg] Conor Pantoja MD Work Phone: [facility] 11-22-2023 13:10-0400 Heart rate 71 /min Conor Pantoja MD Work Phone: [facility] 11-22-2023 13:10-0400 SaO2% (BldA) [Mass fraction] 98 % Conor Pantoja MD Work Phone: [facility] 11-22-2023 13:10-0400 Systolic blood pressure 132 mm[Hg] Conor Pantoja MD Work Phone: [facility] 09-17-2023 12:32-0400 Body mass index (BMI) [Ratio] 35.59 kg/m2 Denice Melissa OIL PIPE INSPECTOR HELPER.GUN SYNCHRONIZER Work Phone: [facility] 09-17-2023 12:32-0400 Body weight 109.32 kg Denice Melissa OIL PIPE INSPECTOR HELPER.GUN SYNCHRONIZER Work Phone: [facility] 09-17-2023 12:32-0400 Diastolic blood pressure 72 mm[Hg] Denice Melissa OIL PIPE INSPECTOR HELPER.GUN SYNCHRONIZER Work Phone: [facility] 09-17-2023 12:32-0400 Heart rate 78 /min Denice Suppan OIL PIPE INSPECTOR HELPER.GUN SYNCHRONIZER Work Phone: [facility] 09-17-2023 12:32-0400 SaO2% (BldA) [Mass fraction] 98 % Denice Suppan OIL PIPE INSPECTOR HELPER.GUN SYNCHRONIZER Work Phone: [facility] 09-17-2023 12:32-0400 Systolic blood pressure 113 mm[Hg] Denice Suppan OIL PIPE INSPECTOR HELPER.GUN SYNCHRONIZER Work Phone: [facility] 07-16-2023 13:38-0500 Body height 175.3 cm Risa Steiner PA-C Work Phone: [facility] 07-16-2023 13:38-0500 Body weight 111 kg Risa Steiner PA-C Work Phone: [facility] 07-16-2023 13:38-0500 Diastolic blood pressure 77 mm[Hg] Risa Steiner PA-C Work Phone: [facility] 07-16-2023 13:38-0500 Heart rate 76 /min Risa Steiner PA-C Work Phone: [facility] 07-16-2023 13:38-0500 SaO2% (BldA) [Mass fraction] 99 % Risa Steiner PA-C Work Phone: [facility] 07-16-2023 13:38-0500 Systolic blood pressure 122 mm[Hg] Risa Steiner PA-C Work Phone: [facility] 04-14-2023 15:49-0500 Body height 175.3 cm Risa Steiner PA-C Work Phone: [facility] 04-14-2023 15:49-0500 Body weight 111.58 kg Risa Steiner PA-C Work Phone: [facility] 04-14-2023 15:49-0500 Diastolic blood pressure 85 mm[Hg] Risa Steiner PA-C Work Phone: [facility] 04-14-2023 15:49-0500 Heart rate 81 /min Risa Steiner PA-C Work Phone: [facility] 04-14-2023 15:49-0500 SaO2% (BldA) [Mass fraction] 99 % Risa Steiner PA-C Work Phone: [facility] 04-14-2023 15:49-0500 Systolic blood pressure 123 mm[Hg] Risa Steiner PA-C Work Phone: [facility] 01-07-2023 14:34-0400 Body height 175.3 cm Risa Steiner PA-C Work Phone: [facility] 01-07-2023 14:34-0400 Body weight 111.77 kg Risa Steiner PA-C Work Phone: [facility] 01-07-2023 14:34-0400 Diastolic blood pressure 81 mm[Hg] Risa Steiner PA-C Work Phone: [facility] 01-07-2023 14:34-0400 Heart rate 85 /min Risa Steiner PA-C Work Phone: [facility] 01-07-2023 14:34-0400 SaO2% (BldA) [Mass fraction] 99 % Risa Steiner PA-C Work Phone: [facility] 01-07-2023 14:34-0400 Systolic blood pressure 129 mm[Hg] Risa Steiner PA-C Work Phone: [facility] 12-02-2022 13:25-0400 Body height 174 cm Conor Pantoja MD Work Phone: [facility] 12-02-2022 13:25-0400 Body weight 114.31 kg Conor Pantoja MD Work Phone: [facility] 12-02-2022 13:25-0400 Diastolic blood pressure 82 mm[Hg] Conor Pantoja MD Work Phone: [facility] 12-02-2022 13:25-0400 Heart rate 83 /min Conor Pantoja MD Work Phone: [facility] 12-02-2022 13:25-0400 SaO2% (BldA) [Mass fraction] 98 % Conor Pantoja MD Work Phone: [facility] 12-02-2022 13:25-0400 Systolic blood pressure 120 mm[Hg] Conor Pantoja MD Work Phone: [facility] 11-27-2022 16:46-0400 Body height 175.26 cm [facility] 11-27-2022 16:46-0400 Body mass index (BMI) [Ratio] 36.9 kg/m2 [facility] 11-27-2022 16:46-0400 Body temperature 96.8 [degF] [facility] 11-27-2022 16:46-0400 Body weight 113.44 kg [facility] 11-27-2022 16:46-0400 Diastolic blood pressure 89 mm[Hg] [facility] 11-27-2022 16:46-0400 Heart rate 89 /min [facility] 11-27-2022 16:46-0400 Respiratory rate 18 /min [facility] 11-27-2022 16:46-0400 SaO2% (BldA) [Mass fraction] 97 % [facility] 11-27-2022 16:46-0400 Systolic blood pressure 140 mm[Hg] [facility] 07-27-2022 09:13-0500 Body temperature 97.9 [degF] Conor Eng Jr., MD Work Phone: [facility] 07-27-2022 09:13-0500 Body weight 114.94 kg Conor Eng Jr., MD Work Phone: [facility] 07-27-2022 09:13-0500 Diastolic blood pressure 85 mm[Hg] Conor Eng Jr., MD Work Phone: [facility] 07-27-2022 09:13-0500 Heart rate 81 /min Conor Eng Jr., MD Work Phone: [facility] 07-27-2022 09:13-0500 Respiratory rate 16 /min Conor Eng Jr., MD Work Phone: [facility] 07-27-2022 09:13-0500 SaO2% (BldA) [Mass fraction] 96 % Conor Eng Jr., MD Work Phone: [facility] 07-27-2022 09:13-0500 Systolic blood pressure 136 mm[Hg] Conor Eng Jr., MD Work Phone: [facility] 06-26-2022 12:45-0500 Body temperature 98.01 [degF] Carmen Ducktown PA-C Work Phone: [facility] 06-26-2022 12:45-0500 Diastolic blood pressure 88 mm[Hg] Carmen Ducktown PA-C Work Phone: [facility] 06-26-2022 12:45-0500 Heart rate 87 /min Carmen Ducktown PA-C Work Phone: [facility] 06-26-2022 12:45-0500 SaO2% (BldA) [Mass fraction] 96 % Carmen Mello PA-C Work Phone: [facility] 06-26-2022 12:45-0500 Systolic blood pressure 134 mm[Hg] Carmen Ducktown PA-C Work Phone: [facility] 06-15-2022 10:53-0500 Diastolic blood pressure 74 mm[Hg] Sukhjinder Dunn MD Work Phone: [facility] 06-15-2022 10:53-0500 Heart rate 77 /min Sukhjinder Dunn MD Work Phone: [facility] 06-15-2022 10:53-0500 SaO2% (BldA) [Mass fraction] 94 % Sukhjinder Dunn MD Work Phone: [facility] 06-15-2022 10:53-0500 Systolic blood pressure 122 mm[Hg] Sukhjinder Dunn MD Work Phone: [facility] 06-15-2022 10:03-0500 Respiratory rate 14 /min Sukhjinder Dunn MD Work Phone: [facility] 06-15-2022 09:09-0500 Body weight 117.9 kg Sukhjinder Dunn MD Work Phone: [facility] 06-12-2022 14:30-0500 Diastolic blood pressure 86 mm[Hg] Asha Haagen OIL PIPE INSPECTOR HELPER.GRAIN DRIER Work Phone: [facility] 06-12-2022 14:30-0500 Heart rate 64 /min Asha Haagen OIL PIPE INSPECTOR HELPER.GRAIN DRIER Work Phone: [facility] 06-12-2022 14:30-0500 Respiratory rate 18 /min Asha Haagen OIL PIPE INSPECTOR HELPER.GRAIN DRIER Work Phone: [facility] 06-12-2022 14:30-0500 SaO2% (BldA) [Mass fraction] 97 % Asha Haagen OIL PIPE INSPECTOR HELPER.GRAIN DRIER Work Phone: [facility] 06-12-2022 14:30-0500 Systolic blood pressure 124 mm[Hg] Asha Haagen OIL PIPE INSPECTOR HELPER.GRAIN DRIER Work Phone: [facility] 05-12-2022 19:19-0500 Body temperature 97.3 [degF] Ju Melo OIL PIPE INSPECTOR HELPER.GRAIN DRIER Work Phone: [facility] 05-12-2022 19:19-0500 Body weight 117.94 kg Ju Melo OIL PIPE INSPECTOR HELPER.GRAIN DRIER Work Phone: [facility] 05-12-2022 19:19-0500 Diastolic blood pressure 82 mm[Hg] Ju Melo OIL PIPE INSPECTOR HELPER.GRAIN DRIER Work Phone: [facility] 05-12-2022 19:19-0500 Heart rate 80 /min Ju Melo OIL PIPE INSPECTOR HELPER.GRAIN DRIER Work Phone: [facility] 05-12-2022 19:19-0500 Respiratory rate 16 /min Ju Melo OIL PIPE INSPECTOR HELPER.GRAIN DRIER Work Phone: [facility] 05-12-2022 19:19-0500 SaO2% (BldA) [Mass fraction] 97 % Ju Melo OIL PIPE INSPECTOR HELPER.GRAIN DRIER Work Phone: [facility] 05-12-2022 19:19-0500 Systolic blood pressure 136 mm[Hg] Ju Melo OIL PIPE INSPECTOR HELPER.GRAIN DRIER Work Phone: [facility] 04-30-2022 14:34-0500 Body weight 116.57 kg Conor Pantoja MD Work Phone: [facility] 04-30-2022 14:34-0500 Diastolic blood pressure 80 mm[Hg] Conor Pantoja MD Work Phone: [facility] 04-30-2022 14:34-0500 Heart rate 78 /min Conor Pantoja MD Work Phone: [facility] 04-30-2022 14:34-0500 Respiratory rate 16 /min Conor Pantoja MD Work Phone: [facility] 04-30-2022 14:34-0500 SaO2% (BldA) [Mass fraction] 98 % Conor Pantoja MD Work Phone: [facility] 04-30-2022 14:34-0500 Systolic blood pressure 132 mm[Hg] Conor Pantoja MD Work Phone: [facility] 02-06-2022 08:17-0400 Body height 174 cm Respiratory Wstr Work Phone: [facility] 02-06-2022 08:17-0400 Body weight 112.95 kg Respiratory Wstr Work Phone: [facility] 02-06-2022 08:17-0400 Heart rate 59 /min Respiratory Wstr Work Phone: [facility] 02-06-2022 08:17-0400 Respiratory rate 14 /min Respiratory Wstr Work Phone: [facility] 02-06-2022 08:17-0400 SaO2% (BldA) [Mass fraction] 98 % Respiratory Wstr Work Phone: [facility] 12-15-2021 15:59-0400 Body height 175.3 cm Ju French OIL PIPE INSPECTOR HELPER.GRAIN DRIER Work Phone: [facility] 12-15-2021 15:59-0400 Body weight 113.85 kg Ju French APRN.GRAIN DRIER Work Phone: [facility] 12-15-2021 15:59-0400 Diastolic blood pressure 94 mm[Hg] Ju French OIL PIPE INSPECTOR HELPER.GRAIN DRIER Work Phone: [facility] 12-15-2021 15:59-0400 Heart rate 100 /min Ju French OIL PIPE INSPECTOR HELPER.GRAIN DRIER Work Phone: [facility] 12-15-2021 15:59-0400 Respiratory rate 14 /min Ju French OIL PIPE INSPECTOR HELPER.GRAIN DRIER Work Phone: [facility] 12-15-2021 15:59-0400 SaO2% (BldA) [Mass fraction] 97 % Ju French APRN.GRAIN DRIER Work Phone: [facility] 12-15-2021 15:59-0400 Systolic blood pressure 130 mm[Hg] Ju French APRN.GRAIN DRIER Work Phone: [facility] 10-24-2021 14:08-0400 Body weight 114.31 kg Conor Pantoja MD Work Phone: [facility] 10-24-2021 14:08-0400 Diastolic blood pressure 72 mm[Hg] Conor Pantoja MD Work Phone: [facility] 10-24-2021 14:08-0400 Heart rate 76 /min Conor Pantoja MD Work Phone: [facility] 10-24-2021 14:08-0400 Systolic blood pressure 118 mm[Hg] Conor Pantoja MD Work Phone: [facility] 09-01-2021 14:58-0400 Body height 175.3 cm Risa Campa MD Work Phone: [facility] 09-01-2021 14:58-0400 Body weight 117.48 kg Risa Campa MD Work Phone: [facility] 09-01-2021 14:58-0400 Diastolic blood pressure 80 mm[Hg] Risa Campa MD Work Phone: [facility] 09-01-2021 14:58-0400 Heart rate 73 /min Risa Campa MD Work Phone: [facility] 09-01-2021 14:58-0400 Respiratory rate 20 /min Risa Campa MD Work Phone: [facility] 09-01-2021 14:58-0400 Systolic blood pressure 120 mm[Hg] Risa Campa MD Work Phone: [facility] Encounters Encounter Date Encounter Type Care Provider Facility Start: 02-12-2025 End: 02-12-2025 ambulatory CONOR PANTOJA Facility:[facility] Start: 01-05-2025 ambulatory CONOR PANTOJA Facility :[facility] Start: 01-05-2025 End: 01-05-2025 Subsequent hospital visit by physician [facility] Work Phone: Nuclear Medicine Comment on above: Elevated alkaline ph osphatase level [R74.8] Start: 01-01-2025 End: 01-01-2025 Admission to same day surgery center Silas Brown MD Work Phone: Neurosurgery Comment on above: Lumbar radiculopathy (Primary Dx) Start: 01-01-2025 End: 01-01-2025 Telemedicine consultation with patient Silas Brown MD Work Phone: Neurosurgery Start: 01-01-2025 End: 01-01-2025 Patient encounter procedure Alyse Magana APRN.GRAIN DRIER Work Phone: General Surgery Comment on above: Gastroesophageal ref lux disease, unspecified whether esophagitis present (Primary Dx); Abdominal cramping; Change in bowel habits Start: 01-01-2025 End: 01-01-2025 ambulatory SILAS BROWN Facility:[facility] Start: 12-27-2024 End: 01-02-2025 Telephone encounter Conor Pantoja MD Work Phone: [facility] Comment on above: Results (Alk phos) Start: 12-22-2024 End: 12-22-2024 ambulatory CONOR PANTOJA Facility:[facility] Start: 12-22-2024 End: 12-22-2024 Subsequent hospital visit by physician [facility] 2 Work Phone: Radiology Comment on above: Neck mass [R22.1] Start: 12-19-2024 End: 12-19-2024 Follow-up encounter Conor Pantoja MD Work Phone: [facility] Start: 12-18-2024 End: 12-18-2024 Patient encounter procedure Conor Pantoja MD Work Phone: [facility] Comment on above: Mixed hyperlipidemia (Primary Dx); Primary hypertension; 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); Gastroesophageal reflux disease without esophagitis; Change in bowel function; Neck mass; Abdominal discomfort Start: 12-18-2024 End: 12-18-2024 ambulatory CONOR PANTOJA Facility:[facility] Start: 08-24-2024 End: 08-25-2024 Refill Conor Pantoja MD Work Phone: [facility] Comment on above: Refill Request Start: 07-18-2024 End: 07-21-2024 Telephone encounter Silas Brown MD Work Phone: Neurosurgery Comment on above: Results (COVID) Start: 07-17-2024 End: 07-17-2024 Admission to same day surgery center Silas Brown MD Work Phone: Neurosurgery Comment on above: Lumbar radiculopathy (Primary Dx) Start: 07-17-2024 End: 07-17-2024 Telemedicine consultation with patient Silas Brown MD Work Phone: Neurosurgery Start: 07-17-2024 End: 07-17-2024 ambulatory Mallory Parks GENERAL I FARMWORKER Work Phone: [facility] Physical Therapy Comment on above: Lumbar radiculopathy (Primary Dx) Start: 07-17-2024 End: 07-17-2024 Subsequent hospital visit by physician Luis [facility] Work Phone: Radiology Comment on above: URI, acute [J06.9] Start: 07-17-2024 End: 07-17-2024 Patient encounter procedure Conor Pantoja MD Work Phone: [facility] Comment on above: Primary hypertension (Primary Dx); Mixed hyperlipidemia; Enlarged thoracic aorta (HCC); Anxiety and depression; Obesity, Class II, BMI 35-39.9; KAI (obstructive sleep apnea); URI, acute; SOB (shortness of breath) Start: 07-17-2024 End: 07-17-2024 ambulatory RISA CAMPA Facility:[facility] Start: 06-29-2024 End: 06-29-2024 ambulatory Mak Fermín PT [facility] Comment on above: Lumbar radiculopathy Start: 06-21-2024 End: 06-21-2024 Admission to same day surgery center Meghan Naik PA-C Work Phone: Neurosurgery Comment on above: Lumbar radiculopathy (Primary Dx) Start: 06-21-2024 End: 06-21-2024 Telemedicine consultation with patient Meghan Naik PA-C Work Phone: Neurosurgery Start: 06-21-2024 End: 06-21-2024 ambulatory MEGHAN QUEZADA Facility:[facility] Start: 06-14-2024 End: 06-14-2024 Admission to same day surgery center Silas Brown MD Work Phone: Neurosurgery Comment on above: Post op Start: 06-14-2024 End: 06-14-2024 ambulatory Silas Brown MD Work Phone: Neurosurgery Start: 06-06-2024 End: 06-06-2024 ambulatory SILAS BROWN Facility:[facility] Start: 05-30-2024 End: 05-30-2024 ambulatory CONOR PANTOJA Facility:[facility] Start: 05-26-2024 End: 05-30-2024 Telephone encounter Silas Brown MD Work Phone: Neurology Comment on above: FMLA form Start: 05-25-2024 End: 05-25-2024 ambulatory CONOR PANTOJA Facility:[facility] Start: 05-23-2024 End: 05-25-2024 Admission to same day surgery center Silas Brown MD Work Phone: Neurosurgery Comment on above: Sick time Start: 05-23-2024 End: 05-25-2024 ambulatory Silas Brown MD Work Phone: Neurosurgery Start: 05-15-2024 End: 05-15-2024 ambulatory CONOR PANTOJA Facility:[facility] Start: 05-15-2024 Encounter for other preprocedural examination CONOR PANTOJA [facility] Start: 05-15-2024 End: 05-15-2024 Admission to establishment Pacc [facility] 1 Work Phone: Pre Anesthesia Start: 05-15-2024 End: 05-15-2024 Anesthesia consultation Pac [facility] 1 Work Phone: Pre Anesthesia Comment on above: Pre-op testing (Prim yuniel Dx); Primary hypertension; Mixed hyperlipidemia; Enlarged thoracic aorta (HCC); 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); KAI (obstructive sleep apnea); Mild persistent asthma without complication; Pulmonary nodules; Anxiety and depression; Former smoker; Obesity, Class II, BMI 35-39.9 Start: 05-15-2024 End: 05-15-2024 Patient encounter status Pac [facility] 1 Work Phone: [facility] Work Phone: Start: 05-15-2024 End: 05-15-2024 ambulatory DEBORA BALDWIN Facility:[facility] Start: 05-15-2024 End: 05-15-2024 Subsequent hospital visit by physician Mri [employer] [facility] (I-Stat/1.5t) Work Phone: Radiology Comment on above: Spinal stenosis of l umbar region with neurogenic claudication [M48.062] Start: 04-24-2024 End: 04-24-2024 Admission to same day surgery center Silas Brown MD Work Phone: Neurosurgery Start: 04-24-2024 End: 04-24-2024 ambulatory Silas Brown MD Work Phone: Neurosurgery Start: 04-24-2024 End: 04-24-2024 Patient encounter status Silas Brown MD Work Phone: [facility] Start: 04-24-2024 End: 06-02-2024 Telephone encounter Silas Brown MD Work Phone: Neurosurgery Comment on above: Insurance Authorizat ion (MRI Lumbar Spine WO IVCON) Start: 04-17-2024 End: 04-17-2024 Patient encounter procedure Silas Brown MD Work Phone: Neurosurgery Comment on above: Lumbar radiculopathy ; Spinal stenosis of lumbar region without neurogenic claudication; Spinal stenosis of lumbar region with neurogenic claudication; Bulging lumbar disc Start: 04-17-2024 End: 04-17-2024 ambulatory SILAS BROWN Facility:[facility] Start: 02-27-2024 End: 02-28-2024 ambulatory Risa Steiner PA-C Work Phone: [facility] Comment on above: Sugery Start: 02-17-2024 End: 02-17-2024 Patient encounter procedure Risa Steiner PA-C Work Phone: [facility] Comment on above: Lumbar radiculopathy (Primary Dx); Spinal stenosis of lumbar region without neurogenic claudication; Spinal stenosis of lumbar region with neurogenic claudication; Bulging lumbar disc Start: 02-03-2024 End: 02-16-2024 Refill Risa Steiner PA-C Work Phone: [facility] Comment on above: Refill Request Start: 02-01-2024 End: 02-01-2024 Refill Conor Pantoja MD Work Phone: [facility] Comment on above: Refill Request Start: 01-21-2024 End: 01-21-2024 ambulatory Lyssa (Rn) Medina RN NURSE [employer] Comment on above: Information Start: 01-21-2024 End: 01-26-2024 Telephone encounter Conor Pantoja MD Work Phone: [facility] Comment on above: Results Start: 01-20-2024 End: 01-20-2024 ambulatory Pulm Lab [facility] Work Phone: [facility] Comment on above: Spirometry Start: 01-20-2024 End: 01-20-2024 Patient encounter procedure Pulm Lab [facility] Work Phone: [facility] Comment on above: Lightheadedness Start: 01-20-2024 End: 01-26-2024 Telephone encounter Maverick Penn APRN.GRAIN DRIER Work Phone: [facility] Cardiology [place] Comment on above: Results Start: 01-19-2024 End: 01-19-2024 Patient encounter procedure Alyse Magana OIL PIPE INSPECTOR HELPER.GRAIN DRIER Work Phone: General Surgery Comment on above: Screen for colon can cer (Primary Dx); History of colonic polyps; Family history of colon cancer Start: 12-29-2023 End: 12-29-2023 Patient encounter procedure Conor Pantoja MD Work Phone: [facility] Comment on above: Headache, unspecifie d headache type (Primary Dx); Enlarged thoracic aorta (HCC); History of colonic polyps; 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); Primary hypertension; Mixed hyperlipidemia; Mild persistent asthma without complication; Cellulitis of skin; Eczema, unspecified type Start: 12-28-2023 Telephone encounter Ju French APRN.GRAIN DRIER Work Phone: Cardiology Start: 12-27-2023 End: 12-27-2023 Patient encounter procedure Echocardiogram Wstr Work Phone: Cardiology Comment on above: VILLEGAS (dyspnea on exer tion); Screening for ischemic heart disease Start: 12-27-2023 End: 12-27-2023 Subsequent hospital visit by physician [employer] Radio [facility] (I-Stat/1.5t) Work Phone: Radiology Comment on above: Headache, unspecifie d headache type [R51.9] Start: 12-17-2023 ambulatory Risa forde MD Work Phone: Cardiology Comment on above: Upcoming ultrasound Start: 12-06-2023 End: 12-06-2023 Patient encounter procedure Risa Campa MD Work Phone: Cardiology Comment on above: Primary hypertension (Primary Dx); Mixed hyperlipidemia; VILLEGAS (dyspnea on exertion); Screening for ischemic heart disease; 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 Start: 11-22-2023 End: 11-22-2023 Patient encounter procedure Conor Pantoja MD Work Phone: [facility] [place] Comment on above: Headache, unspecifie d headache type (Primary Dx); Mental confusion; Need for hepatitis C screening test; Screening for HIV (human immunodeficiency virus) Start: 09-20-2023 Telephone encounter Conor Pantoja MD Work Phone: Internal Medicine [place] Comment on above: Medication Problem Start: 09-17-2023 Telephone encounter Denice Melissa OIL PIPE INSPECTOR HELPER.GUN SYNCHRONIZER Work Phone: [facility] [place] Comment on above: Medication Problem Start: 09-17-2023 End: 09-17-2023 Office outpatient visit 15 minutes Denice Melissa OIL PIPE INSPECTOR HELPER.GUN SYNCHRONIZER Work Phone: [facility] [place] Comment on above: Other infective acut e otitis externa of left ear (Primary Dx) Start: 09-14-2023 Refill Risa NAVARROC Work Phone: [facility] Comment on above: Refill Request Start: 09-03-2023 End: 09-03-2023 ambulatory CONOR PANTOJA Facility:[facility] Start: 08-08-2023 ambulatory Risa An ms, PA-C Work Phone: [facility] Comment on above: Diclofenc Start: 07-16-2023 End: 07-16-2023 Patient encounter procedure Risa Steiner PA-C Work Phone: [facility] Comment on above: Lumbar radiculopathy (Primary Dx); Bulging lumbar disc; Spinal stenosis of lumbar region with neurogenic claudication Start: 07-13-2023 Refill Conor Pantoja MD Work Phone: [facility] [place] Comment on above: Refill Request Start: 06-17-2023 End: 06-17-2023 ambulatory DENG Ritu WOLF Facility:[facility] Start: 04-19-2023 End: 04-19-2023 Subsequent hospital visit by physician [facility] [place] Work Phone: Radiology Comment on above: Bulging lumbar disc [M51.36] Start: 04-19-2023 Telephone encounter Princess davison MD Work Phone: [facility] Comment on above: Fast Track Start: 04-14-2023 End: 04-14-2023 Patient encounter procedure Risa Steiner PA-C Work Phone: [facility] Comment on above: Spinal stenosis of l umbar region with neurogenic claudication (Primary Dx); Bulging lumbar disc; Spinal stenosis of lumbar region without neurogenic claudication Start: 03-31-2023 End: 03-31-2023 ambulatory Janice Lemon PT [facility] Comment on above: Bulging lumbar disc (Primary Dx); Spinal stenosis of lumbar region without neurogenic claudication Start: 03-22-2023 End: 03-22-2023 ambulatory Janice Lemon PT [facility] Comment on above: Bulging lumbar disc (Primary Dx); Spinal stenosis of lumbar region without neurogenic claudication Start: 03-10-2023 End: 03-10-2023 ambulatory Mallory Kashuba GENERAL I FARMWORKER Work Phone: [facility] Comment on above: Bulging lumbar disc (Primary Dx); Spinal stenosis of lumbar region without neurogenic claudication Start: 02-16-2023 End: 02-16-2023 ambulatory Mallory Kashuba GENERAL I FARMWORKER Work Phone: [facility] Comment on above: Bulging lumbar disc (Primary Dx); Spinal stenosis of lumbar region without neurogenic claudication Start: 02-08-2023 End: 02-08-2023 ambulatory Janice Lemon PT [facility] Comment on above: Bulging lumbar disc (Primary Dx); Spinal stenosis of lumbar region without neurogenic claudication Start: 01-07-2023 End: 01-07-2023 Patient encounter procedure Risa Steiner PA-C Work Phone: [facility] Comment on above: Bulging lumbar disc; Spinal stenosis of lumbar region without neurogenic claudication Start: 12-14-2022 Orders Only Carrillo ibarra Work Phone: Podiatry Comment on above: Flat feet, bilateral (Primary Dx) Start: 12-02-2022 End: 12-02-2022 Patient encounter procedure Conor Pantoja MD Work Phone: [facility] Comment on above: Bulging lumbar disc (Primary Dx); Spinal stenosis of lumbar region without neurogenic claudication; GERD with esophagitis; Gastroesophageal reflux disease with esophagitis without hemorrhage Start: 11-27-2022 End: 11-27-2022 Emergency department patient visit [facility] Facility:[facility] Start: 11-27-2022 End: 11-27-2022 Emergency department patient visit [facility] Work Phone: Start: 11-06-2022 End: 11-06-2022 [facility] Conor Eng MD Work Phone: Neurology Comment on above: KAI on CPAP (Primary Dx); Circadian rhythm disorder Start: 07-27-2022 End: 07-27-2022 Patient encounter procedure Conor Eng MD Work Phone: Neurology Comment on above: KAI on CPAP (Primary Dx); Insomnia, unspecified type Start: 06-26-2022 End: 06-26-2022 Patient encounter procedure Carmen Sarkar PA-C Work Phone: General Surgery Comment on above: Tubular adenoma (Juliet art Dx); History of colonic polyps Start: 06-15-2022 Refill Asha Rocha APRN.GRAIN DRIER Work Phone: [facility] Comment on above: Med Change Request Start: 06-15-2022 End: 06-15-2022 Subsequent hospital visit by physician Sukhjinder Dunn MD Work Phone: Ambulatory Surgery Comment on above: History of colonic p olyps [Z86.010] Start: 06-12-2022 End: 06-12-2022 Office outpatient visit 15 minutes Asha Rocha APRN.GRAIN DRIER Work Phone: [facility] Comment on above: Anxiety and depressi on (Primary Dx); 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; GERD with esophagitis Start: 05-12-2022 End: 05-12-2022 Patient encounter procedure Ju Melo APRN.GRAIN DRIER Work Phone: [place] [facility] Comment on above: URI, acute (Primary Dx) Start: 04-30-2022 End: 04-30-2022 Patient encounter procedure Conor Pantoja MD Work Phone: [facility] [place] Comment on above: Anxiety and depressi on (Primary Dx); GERD with esophagitis; 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; Mixed hyperlipidemia; Mild persistent asthma without complication; Gastroesophageal reflux disease with esophagitis without hemorrhage Start: 02-24-2022 Telephone encounter Ju French APRN.GRAIN DRIER Work Phone: [facility] Cardiology Comment on above: Results Start: 02-23-2022 End: 02-23-2022 Subsequent hospital visit by physician Injection Nm [facility] Work Phone: Nuclear Medicine Comment on above: VILLEGAS (dyspnea on exer tion) [R06.09] Start: 02-06-2022 End: 02-06-2022 ambulatory Respiratory Therapist [facility] Work Phone: Pulmonary Medicine Comment on above: Spirometry Start: 02-06-2022 End: 02-06-2022 Patient encounter procedure Respiratory Therapist [facility] Work Phone: [place] [facility] Start: 02-04-2022 Telephone encounter Conor Pantoja MD Work Phone: [facility] [place] Comment on above: clarify order Start: 12-15-2021 End: 12-15-2021 Patient encounter procedure Ju French APRN.GRAIN DRIER Work Phone: Cardiology Comment on above: VILLEGAS (dyspnea on exer tion) (Primary Dx); Obesity, Class II, BMI 35-39.9; Mixed hyperlipidemia; 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; KAI (obstructive sleep apnea) Start: 11-13-2021 Telephone encounter Sukhjinder ruiz MD Work Phone: General Surgery Comment on above: Procedure Start: 10-25-2021 Telephone encounter Sukhjinder ruiz MD Work Phone: General Surgery Comment on above: Cardiac Clearance; P rocedure Start: 10-24-2021 End: 10-24-2021 Subsequent hospital visit by physician Xr [facility] [place] Work Phone: Radiology Comment on above: Chronic pain of left knee [M25.562, G89.29] Start: 10-24-2021 End: 10-24-2021 Patient encounter procedure Conor Pantoja MD Work Phone: [facility] Comment on above: Mild persistent asth ma without complication (Primary Dx); Anxiety and depression; SOB (shortness of breath); Abnormal EKG; Chronic pain of left knee Start: 10-24-2021 Telephone encounter Conor Pantoja MD Work Phone: [facility] Comment on above: Patient Update Start: 09-02-2021 End: 09-02-2021 Patient encounter procedure Conchita Francisco RETANA Work Phone: Audiology Comment on above: Sensorineural hearin g loss, bilateral (Primary Dx); Ear pressure, left; Tinnitus, bilateral Start: 09-01-2021 End: 09-01-2021 Patient encounter procedure Risa Campa MD Work Phone: Cardiology Comment on above: Shortness of breath; 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); Obesity, Class II, BMI 35-39.9; Mixed hyperlipidemia; 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 Start: 08-26-2021 Orders Only Risa forde MD Work Phone: Cardiology Comment on above: Screening for ischem ic heart disease (Primary Dx) Start: 08-05-2021 Telephone encounter Sukhjinder ruiz MD Work Phone: General Surgery Comment on above: 09-15-2021 Colon ASC Start: 06-13-2021 End: 06-13-2021 Subsequent hospital visit by physician Xr [facility] [place] Work Phone: Radiology Comment on above: SOB (shortness of br eath) [R06.02] Start: 11-22-2020 End: 11-22-2020 Subsequent hospital visit by physician Xr [facility] [place] Work Phone: Radiology Comment on above: Pneumonia due to COV ID-19 virus [U07.1, J12.82] Start: 10-17-2020 End: 10-17-2020 Subsequent hospital visit by physician Xr [facility] [place] Work Phone: Radiology Comment on above: Pain of left lower e xtremity [M79.605] Start: 05-26-2018 End: 05-27-2018 Patient encounter procedure KYLIE TERRY [facility] Start: 07-22-2017 End: 07-23-2017 Patient encounter procedure KYLIE TERRY [facility] Procedures Date Procedure Procedure Detail Performing Clinician Start: 01-05-2025 Bone &/joint imaging whole body Conor Pantoja MD Work Phone: Start: 12-18-2024 Lipid 1996 panel - S mona or Plasma Conor Pantoja MD Work Phone: Start: 07-17-2024 Radiologic exam ches t 2 views Conor Pantoja MD Work Phone: Start: 05-15-2024 Mri spinal canal lum bar w/o contrast material Silas Brown MD Work Phone: Start: 01-20-2024 Duplex scan extracra nial art compl bi study Ju French APRN.GRAIN DRIER Work Phone: Start: 01-20-2024 Plethysmography lung volumes w/wo airway resist Conor Pantoja MD Work Phone: Start: 12-27-2023 Mri brain brain stem w/o w/contrast material Conor Pantoja MD Work Phone: Start: 12-27-2023 Echo tthrc r-t 2d w/ wom-mode compl spec&colr d Risa Campa MD Work Phone: Start: 12-06-2023 Ecg routine ecg w/le ast 12 lds i&r only [facility] Provider Start: 04-19-2023 Radex spine lumbosac ral minimum 4 views Risa Steiner PA-C Work Phone: Start: 11-27-2022 CT of abdomen and pe lvis without contrast Start: 06-15-2022 Level iv surg pathol ogy gross&microscopic exam Sukhjinder Dunn MD Work Phone: Start: 06-15-2022 Colonoscopy flx dx w /collj spec when pfrmd Sukhjinder Dunn MD Work Phone: Start: 06-15-2022 Colonoscopy Asha todd OIL PIPE INSPECTOR HELPER.GRAIN DRIER Work Phone: Start: 02-23-2022 Myocardial spect mul tiple studies Ju French OIL PIPE INSPECTOR HELPER.GRAIN DRIER Work Phone: Start: 02-06-2022 Brncdilat rspse spmt ry pre&post-brncdilat admn Conor Pantoja MD Work Phone: Start: 02-06-2022 Lipid 1996 panel - S mona or Plasma Janice Lemon PT Start: 10-24-2021 Radiologic exam knee complete 4/more views Conor Pantoja MD Work Phone: Start: 06-13-2021 Radiologic exam ches t 2 views Kitty Trujillo PA-C Work Phone: Start: 11-22-2020 Radiologic exam ches t 2 views Conor Pantoja MD Work Phone: Start: 10-17-2020 Radiologic examinati on tibia & fibula 2 views Chintan Lombardi OIL PIPE INSPECTOR HELPER.GRAIN DRIER Work Phone: Start: 08-21-2015 Colonoscopy Risa espinoza MD Work Phone: Plan of Treatment Date Care Activity Detail Author Start: 10-17-2030 Urine microalbumin profile [facility] Start: 12-18-2029 Lipid panel Lipid Screening [facility] Start: 06-15-2027 Colonoscopy COLONOSCOPY [facility] Start: 06-15-2027 COLORECTAL CANCER SCREENING COLORECTAL CANCER SCREENING [facility] Start: 02-06-2027 Lipid 1996 panel - Serum or Plasma Lipid Screening [facility] Start: 02-06-2027 Lipid panel Lipid Screening [facility] Start: 02-06-2027 LIPID SCREEN LIPID SCREEN [facility] Start: 12-18-2025 Annual PCP Team Chronic Disease Visit Annual PCP Team Chronic Disease Visit [facility] Start: 07-17-2025 Annual PCP Team Chronic Disease Visit Annual PCP Team Chronic Disease Visit [facility] Start: 07-17-2025 BP Controlled (<130/80) BP Controlled (<130/80) [facility] in Start: 02-12-2025 End: 02-12-2025 Patient encounter procedure 02/12/2025 9:20 AM EDT Office Visit Cardiology [address] [place] [address] Risa Campa MD [address] [id number] 6 month f/u BP Cardiology Comment on above: 6 month f/u BP Start: 01-22-2025 Influenza vaccination Influenza Vaccine (#1) [facility] Start: 01-05-2025 End: 01-05-2025 Patient encounter procedure 01/05/2025 10:30 AM EDT Appointment Nuclear Medicine [address] [place] [address] Elevated alkaline phosphatase level [R74.8] Nuclear Medicine Comment on above: Elevated alkaline phosphatase level [R74 .8] Start: 01-05-2025 End: 01-05-2025 Patient encounter procedure 01/05/2025 7:30 AM EDT Appointment Nuclear Medicine [address] [place] [address] Elevated alkaline phosphatase level [R74.8] Nuclear Medicine Comment on above: Elevated alkaline phosphatase level [R74 .8] Start: 01-01-2025 End: 01-01-2025 Admission to same day surgery center 01/01/2025 3:40 PM EDT [facility] Neurosurgery [address] [place] [address] Silas Brown MD [address] [place], [place] [id number] Discuss how my back is doing Neurosurgery Comment on above: Discuss how my back is doing Start: 01-01-2025 End: 01-01-2025 Patient encounter procedure 01/01/2025 3:00 PM EDT Office Visit General Surgery [address] [place] [address] Alyse Magana APRN.GRAIN DRIER [address] [place] [address] Gastroesophageal reflux disease without esophagitis [K21.9]; Change in bowel function [R19.8]; Abdominal discomfort [R10.9] General Surgery Comment on above: Gastroesophageal reflux disease without esophagitis [K21.9]; Change in bowel function [R19.8]; Abdominal discomfort [R10.9] Start: 12-28-2024 Annual PCP Team Chronic Disease Visit Annual PCP Team Chronic Disease Visit [facility] Start: 12-22-2024 End: 12-22-2024 ambulatory 12/22/2024 4:30 PM EDT Results [facility] [place] [facility] [address] [place] [address] [place] [facility] Start: 12-22-2024 End: 12-22-2024 Patient encounter procedure 12/22/2024 2:30 PM EDT Appointment Radiology [address] [place] [address] Neck mass [R22.1] Radiology Comment on above: Neck mass [R22.1] Start: 12-19-2024 End: 03-20-2025 ALK PHOS ISOENZYM BL ALK PHOS ISOENZYM BL Lab Routine Elevated alkaline phosphatase level Expected: 12/19/2024, Expires: 03/20/2025 [facility] Work Phone: Comment on above: Expected: 12/19/2024, Expires: Start: 12-18-2024 End: 03-19-2025 Comprehensive metabolic 2000 panel - Serum or Plasma [facility] Work Phone: Comment on above: Expected: 12/18/2024, Expires: Start: 12-18-2024 End: 03-19-2025 Lipase [Enzymatic activity/volume] in Serum or Plasma [facility] Comment on above: Expected: 12/18/2024, Expires: Start: 12-18-2024 End: 03-19-2025 LIPID PANEL, NONFASTING [facility] Comment on above: Expected: 12/18/2024, Expires: Start: 11-21-2024 Annual PCP Team Chronic Disease Visit Annual PCP Team Chronic Disease Visit [facility] Start: 11-21-2024 Covid-19 Vaccine () Covid-19 Vaccine () [facility] Comment on above: Postponed from 01/22/2023 (Declined at t his time) Start: 11-21-2024 Hepatitis B Vaccine (1 of 3 - 19+ 3-dose series) Hepatitis B Vaccine (1 of 3 - 19+ 3-dose series) [facility] Comment on above: Postponed from 11/25/1999 (Declined at t his time) Start: 08-01-2024 End: 08-01-2024 ambulatory 08/01/2024 5:30 PM EDT OT/PT/Speech Visit [facility] [address] [place] [address] Mak Morales, PT [address] [place] [address] Lumbar radiculopathy [M54.16] [facility] Comment on above: Lumbar radiculopathy [M54.16] Start: 07-24-2024 End: 07-24-2024 ambulatory 07/24/2024 5:15 PM EST OT/PT/Speech Visit [facility] [address] [place] [address] Mallory Parks, GENERAL I FARMWORKER [address] [place] [address] Lumbar radiculopathy [M54.16] [facility] Comment on above: Lumbar radiculopathy [M54.16] Start: 07-17-2024 End: 07-17-2024 ambulatory 07/17/2024 4:30 PM EST OT/PT/Speech Visit [facility] [address] [place] [address] Cindi [place], GENERAL I FARMWORKER [address] [place] [address] Lumbar radiculopathy [M54.16] [facility] Comment on above: Lumbar radiculopathy [M54.16] Start: 07-17-2024 End: 07-17-2024 Admission to same day surgery center 07/17/2024 4:00 PM EST [facility] Neurosurgery [address] [place] [address] Silas Brown MD [address] [place], [place] [id number] 6 week post op surgery 06/06 Procedure: LAMINECTOMY DISCECTOMY LUMBAR LEVEL 1-ok per Neurosurgery Comment on above: 6 week post op surgery 06/06 Procedure: L AMINECTOMY DISCECTOMY LUMBAR LEVEL 1-ok per Start: 07-17-2024 End: 07-17-2024 Patient encounter procedure Cardiology Comment on above: 6 month follow up Start: 07-17-2024 End: 10-16-2024 Lipid 1996 panel - Serum or Plasma LIPID PANEL BASIC Lab Routine Primary hypertension Mixed hyperlipidemia Expected: 07/17/2024, Expires: 10/16/2024 [facility] Work Phone: Comment on above: Expected: 07/17/2024, Expires: Start: 07-05-2024 End: 07-05-2024 ambulatory 07/05/2024 11:45 AM EST OT/PT/Speech Visit [facility] [address] [place] [address] Mak Morales, PT [address] [facility] [place] [id number] Lumbar radiculopathy [M54.16] [facility] Comment on above: Lumbar radiculopathy [M54.16] Start: 06-21-2024 End: 06-21-2024 Admission to same day surgery center 06/21/2024 10:00 AM EST [facility] Neurosurgery [address] [place] [address] Meghan Naik PA-C [address] [place] [address] post op 06/06 Dr. Brown-Procedure: LAMINECTOMY DISCECTOMY LUMBAR LEVEL 1 Neurosurgery Comment on above: post op 06/06 Dr. Brown-Procedure: LAMI NECTOMY DISCECTOMY LUMBAR LEVEL 1 Start: 06-21-2024 End: 06-21-2024 Patient encounter procedure 06/21/2024 10:00 AM EST Office Visit Neurosurgery [address] [place] [address] Meghan Naik PA-C [address] [place] [address] post op 06/06 Dr. Brown-Procedure: LAMINECTOMY DISCECTOMY LUMBAR LEVEL 1 Neurosurgery Comment on above: post op 06/06 Dr. Brown-Procedure: LAMI NECTOMY DISCECTOMY LUMBAR LEVEL 1 Start: 06-06-2024 End: 06-06-2024 Admission to same day surgery center 06/06/2024 8:31 AM EST - 06/06/2024 10:[address] [facility] Operating Room [address] [address] Silas Brown MD [address] [place] [address] LAMINECTOMY DISCECTOMY LUMBAR LEVEL 1 [facility] Operating Room Comment on above: LAMINECTOMY DISCECTOMY LUMBAR LEVEL 1 Start: 06-06-2024 End: 06-06-2024 Lamnotmy incl w/dcmprsn nrv root 1 intrspc lumbr LAMINECTOMY DISCECTOMY LUMBAR LEVEL 1 Lumbar radiculopathy Bulging lumbar disc Spinal stenosis of lumbar region without neurogenic claudication 06/06/2024 8:31 AM EST PATI OR Start: 06-06-2024 Subsequent hospital visit by physician 06/06/2024 8:31 AM EST Hospital Encounter [facility] Operating Room [address] [address] Silas Brown MD [address] [place] [address] Lumbar radiculopathy [M54.16], Bulging lumbar disc [M51.369], Spinal stenosis of lumbar region without neurogenic claudication [M48.061] [facility] Comment on above: Lumbar radiculopathy [M54.16], Bulging l umbar disc [M51.369], Spinal stenosis of lumbar region without neurogenic claudication [M48.061] Start: 06-06-2024 End: 06-06-2024 Admission to same day surgery center [facility] Operating [facility] Comment on above: LAMINECTOMY DISCECTOMY LUMBAR LEVEL 1 Start: 06-06-2024 End: 06-06-2024 Lamnotmy incl w/dcmprsn nrv root 1 intrspc lumbr PATI OR Start: 06-06-2024 Subsequent hospital visit by physician [facility] Operating Room Comment on above: Lumbar radiculopathy [M54.16], Bulging l umbar disc [M51.369], Spinal stenosis of lumbar region without neurogenic claudication [M48.061] Start: 05-30-2024 End: 05-30-2024 Patient encounter procedure 05/30/2024 12:00 PM EST Office [place] [address] SURGICAL REGISTRATION APPT [phone] [facility] Comment on above: SURGICAL REGISTRATION APPT [phone] Start: 05-25-2024 End: 05-25-2024 ambulatory 05/25/2024 4:30 PM EST Results Only [place] [facility] [address] [place] [address] [place] [facility] Start: 05-15-2024 End: 05-15-2024 Admission to same day surgery center 05/15/2024 3:40 PM EST PAT Pre Anesthesia [address] [place] [address] 1, P[facility] [place] [address] [place] [address] PAT Surgery 06/[address] Brown and STAPHYLOCOCCUS AUREUS & MRSA SCREEN, PCR, NASAL Pre Anesthesia Comment on above: PAT Surgery 06/[address] and ST APHYLOCOCCUS AUREUS & MRSA SCREEN, PCR, NASAL Start: 05-15-2024 End: 05-15-2024 Patient encounter procedure 05/15/2024 2:30 PM EST Appointment Radiology [address] [facility] [place] [address] CCN DENIED Radiology Comment on above: CCN DENIED Start: 05-02-2024 End: 05-02-2024 Patient encounter procedure 05/02/2024 4:00 PM EST Appointment Radiology [address] [place] [address] MRI LUMBAR SPINE WO IVCON Radiology Comment on above: MRI LUMBAR SPINE WO IVCON Start: 04-24-2024 End: 10-21-2024 STAPHYLOCOCCUS AUREUS & MRSA SCREEN, PCR, NASAL STAPHYLOCOCCUS AUREUS & MRSA SCREEN, PCR, NASAL Lab Routine Pre-op testing Expected: 04/24/2024, Expires: 10/21/2024 [facility] Work Phone: Comment on above: Expected: 04/24/2024, Expires: Start: 03-31-2024 End: 03-31-2024 Patient encounter procedure 03/31/2024 2:[address] [facility] [address] [place] [address] Monique Stout, [address] [place] [address] PER NOTES PLEASE USE ADULT SCOPE COLON [facility] Comment on above: PER NOTES PLEASE USE ADULT SCOPE COLON Start: 02-17-2024 End: 02-17-2024 Patient encounter procedure 02/17/2024 3:40 PM EDT Office Visit [facility] [address] [address] Risa Steiner PA-C [address] [place] [address] Back pain increasing [facility] Comment on above: Back pain increasing Start: 01-23-2024 Covid-19 Vaccine ( season) Covid-19 Vaccine ( season) [facility] Start: 01-23-2024 Covid-19 Vaccine () Covid-19 Vaccine () [facility] Start: 01-23-2024 Influenza vaccination [facility] Start: 01-20-2024 End: 01-20-2024 Patient encounter procedure 01/20/2024 3:30 PM EDT Office Visit Vasculary Surgery [address] [facility] [place] [address] Lightheadedness [R42] Vasculary Surgery Comment on above: Lightheadedness [R42] Start: 01-20-2024 End: 01-20-2024 ambulatory [facility] Comment on above: Mild persistent asthma without complicat ion [J45.30] Start: 01-19-2024 End: 01-19-2024 Patient encounter procedure 01/19/2024 4:15 PM EDT Office Visit General Surgery [address] [place] [address] Sukhjinder Dunn MD [address] [place], [place] [id number] History of colonic polyps [Z86.010] General Surgery Comment on above: History of colonic polyps [Z86.010] Start: 12-29-2023 End: 12-29-2023 Patient encounter procedure 12/29/2023 2:40 PM EDT Office Visit Family [facility] [address] [place] [address] Conor Pantoja MD [address] [place] [address] 4 week f/u MITCHELL, MRI prior Family [facility] Comment on above: 4 week f/u MITCHELL, MRI prior Start: 12-27-2023 End: 12-27-2023 Patient encounter procedure 12/27/2023 3:30 PM EDT Office Visit Cardiology [address] [place] [address] Echo Cardiology Comment on above: Echo Start: 12-27-2023 End: 12-27-2023 Patient encounter procedure 12/27/2023 2:20 PM EDT Appointment Radiology [address] [place] [address] Headache, unspecified headache type [R51.9]; Mental confusion [R41.0] Radiology Comment on above: Headache, unspecified headache type [R51 .9]; Mental confusion [R41.0] Start: 12-06-2023 End: 12-06-2023 Patient encounter procedure 12/06/2023 2:40 PM EDT Office Visit Cardiology [address] [place] [id number] Risa Campa MD [address] [facility] [address] [place] [address] follow up Cardiology Comment on above: follow up Start: 12-03-2023 ANNUAL PCP TEAM CHRONIC DISEASE VISIT ANNUAL PCP TEAM CHRONIC DISEASE VISIT [facility] Start: 11-22-2023 End: 02-21-2024 Basic metabolic 2000 panel - Serum or Plasma [facility] Work Phone: Comment on above: Expected: 11/22/2023, Expires: Start: 11-22-2023 End: 02-21-2024 Erythrocyte sedimentation rate [facility] Comment on above: Expected: 11/22/2023, Expires: 4 Start: 11-22-2023 End: 02-21-2024 Hepatitis C virus Ab [Presence] in Serum [facility] Comment on above: Expected: 11/22/2023, Expires: Start: 11-22-2023 End: 02-21-2024 HIV 1+2 Ab [Presence] in Serum or Plasma by Immunoassay [facility] Comment on above: Expected: 11/22/2023, Expires: Start: 11-05-2023 End: 11-05-2023 Patient encounter procedure 11/05/2023 4:00 PM EDT Office Visit [facility] [place] [address] [place] [address] Cnoor Pantoja MD [address] [place] [address] 2 month follow up [facility] Comment on above: 2 month follow up Start: 09-17-2023 End: 09-17-2023 ambulatory 09/17/2023 4:45 PM EDT Results Only [facility] [address] [place] [address] [facility] Start: 09-15-2023 End: 12-15-2023 CBC W Auto Differential panel - Blood COMPLETE BLOOD COUNT AND DIFFERENTIAL Lab Routine Bulging lumbar disc Spinal stenosis of lumbar region without neurogenic claudication Expected: 09/15/2023, Expires: 12/15/2023 [facility] Comment on above: Expected: 09/15/2023, Expires: Start: 09-15-2023 End: 12-15-2023 CREATININE BLD CREATININE BLD Lab Routine Bulging lumbar disc Spinal stenosis of lumbar region without neurogenic claudication Expected: 09/15/2023, Expires: 12/15/2023 [facility] Comment on above: Expected: 09/15/2023, Expires: Start: 09-15-2023 End: 12-15-2023 Hepatic function 2000 panel - Serum or Plasma HEPATIC FUNCTION PNL Lab Routine Bulging lumbar disc Spinal stenosis of lumbar region without neurogenic claudication Expected: 09/15/2023, Expires: 12/15/2023 [facility] Work Phone: Comment on above: Expected: 09/15/2023, Expires: Start: 09-15-2023 End: 09-14-2024 Renal function 2000 panel - Serum or Plasma RENAL FUNCTION PANEL Lab Routine Bulging lumbar disc Spinal stenosis of lumbar region without neurogenic claudication Expected: 09/15/2023, Expires: 09/14/2024 [facility] Comment on above: Expected: 09/15/2023, Expires: Start: 06-15-2023 Colonoscopy COLONOSCOPY [facility] Start: 06-15-2023 COLORECTAL CANCER SCREENING COLORECTAL CANCER SCREENING [facility] Start: 06-15-2023 Screening for malignant neoplasm of colon [facility] Start: 06-12-2023 ANNUAL PCP TEAM CHRONIC DISEASE VISIT ANNUAL PCP TEAM CHRONIC DISEASE VISIT [facility] Start: 04-30-2023 ANNUAL PCP TEAM CHRONIC DISEASE VISIT ANNUAL PCP TEAM CHRONIC DISEASE VISIT [facility] Start: 02-03-2023 ANNUAL PCP TEAM CHRONIC DISEASE VISIT ANNUAL PCP TEAM CHRONIC DISEASE VISIT [facility] Start: 01-22-2023 Covid-19 Vaccine () Covid-19 Vaccine () [facility] Start: 01-22-2023 Influenza vaccination [facility] Start: 11-20-2022 Influenza vaccination INFLUENZA (#1) [facility] Comment on above: Postponed from 01/22/2022 (Declined at t his time) Start: 10-24-2022 ANNUAL PCP TEAM CHRONIC DISEASE VISIT ANNUAL PCP TEAM CHRONIC DISEASE VISIT [facility] Start: 07-30-2022 ANNUAL PCP TEAM CHRONIC DISEASE VISIT ANNUAL PCP TEAM CHRONIC DISEASE VISIT [facility] Start: 05-12-2022 End: 05-26-2022 Influenza virus A and B RNA and SARS-CoV-2 (COVID-19) N gene panel - Respiratory specimen by LOI with probe detection COVID WITH FLUA+B, ROUTINE Microbiology Routine URI, acute Expected: 05/12/2022, Expires: 05/26/2022 [facility] Work Phone: Comment on above: Expected: 05/12/2022, Expires: 3 Start: 01-22-2022 Influenza vaccination [facility] Start: 10-24-2021 End: 12-24-2021 C reactive protein [Mass/volume] in Serum or Plasma [facility] Work Phone: Comment on above: Expected: 10/24/2021, Expires: 2 Start: 10-24-2021 End: 12-24-2021 Thyrotropin [Units/volume] in Serum or Plasma [facility] Work Phone: Comment on above: Expected: 10/24/2021, Expires: 2 Start: 09-01-2021 End: 11-01-2021 C reactive protein [Mass/volume] in Serum or Plasma by High sensitivity method C-REACTIVE ULTRA SEN Lab Routine Shortness of breath 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) Expected: 09/01/2021, Expires: 11/01/2021 [facility] Work Phone: Comment on above: Expected: 09/01/2021, Expires: 2 Start: 09-01-2021 End: 11-01-2021 Natriuretic peptide.B prohormone N-Terminal [Mass/volume] in Serum or Plasma NT PRO BNP Lab Routine Shortness of breath 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) Expected: 09/01/2021, Expires: 11/01/2021 [facility] Work Phone: Comment on above: Expected: 09/01/2021, Expires: 2 Start: 08-20-2020 Colonoscopy COLONOSCOPY [facility] Start: 08-20-2020 COLORECTAL CANCER SCREENING COLORECTAL CANCER SCREENING [facility] Start: 04-26-2020 LIPID SCREEN LIPID SCREEN [facility] Start: 01-05-2018 PNEUMOCOCCAL (2 - PCV) PNEUMOCOCCAL (2 - PCV) [facility] Start: 01-05-2018 Pneumococcal vaccination Pneumococcal Vaccine (2 - PCV) [facility] Start: 11-25-2007 HPV Vaccine (1 - 3-dose SCDM series) HPV Vaccine (1 - 3-dose SCDM series) [facility] Start: 11-25-1999 Hepatitis B Vaccine (1 of 3 - 19+ 3-dose series) Hepatitis B Vaccine (1 of 3 - 19+ 3-dose series) [facility] Start: 1998 BP Controlled (<130/80) BP Controlled (<130/80) [facility] Start: 1998 HEPATITIS C SCREENING HEPATITIS C SCREENING [facility] Start: 1998 Hepatitis C screening Hepatitis C Screening [facility] Start: 1998 HIV SCREENING HIV SCREENING [facility] Start: 1998 HIV screening HIV Screening [facility] Start: 1985 COVID-19 VACCINE (#1) COVID-19 VACCINE (#1) [facility] Start: 1985 COVID-19 VACCINE (1) COVID-19 VACCINE (1) [facility] Start: 05-27-1981 COVID-19 VACCINE (#1) COVID-19 VACCINE (#1) [facility] Start: 1980 HEPATITIS B (1 of 3 - 3-dose series) HEPATITIS B (1 of 3 - 3-dose series) [facility] Start: 1980 Hepatitis B Vaccine (1 of 3 - 3-dose series) Hepatitis B Vaccine (1 of 3 - 3-dose series) [facility] End: 10-31-2022 COLONOSCOPY DIAGNOSTIC COLONOSCOPY DIAGNOSTIC Endoscopy Routine Personal history of colonic polyps Family history of colon cancer 1 Occurrences starting 10/31/2021 until 10/31/2022 [facility] Work Phone: Comment on above: 1 Occurrences starting 10/31/2021 until 10/31/2022 COVID & INFLUENZA A/ B & RSV PCR, ROUTINE COVID & INFLUENZA A/B & RSV PCR, ROUTINE Microbiology Routine URI, acute 07/17/2024 3:31 PM EST [facility] End: 08-26-2022 ECG COMPLETE ECG COMPLETE ECG Routine Screening for ischemic heart disease 1 Occurrences starting 08/26/2021 until 08/26/2022 [facility] Work Phone: Comment on above: 1 Occurrences starting 08/26/2021 until 08/26/2022 ECG COMPLETE ECG COMPLETE ECG Routine Mixed hyperlipidemia VILLEGAS (dyspnea on exertion) Screening for ischemic heart disease Ordered: 12/03/2023 [facility] Work Phone: Comment on above: Ordered: 12/03/2023 ECG COMPLETE ECG COMPLETE ECG 12/06/2023 2:42 PM EDT [facility] End: 09-01-2022 Echocardiography ECHO Cardiology Routine Shortness of breath 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) 1 Occurrences starting 09/01/2021 until 09/01/2022 [facility] Work Phone: Comment on above: 1 Occurrences starting 09/01/2021 until 09/01/2022 End: 12-05-2024 Echocardiography ECHO Cardiology Routine VILLEGAS (dyspnea on exertion) Screening for ischemic heart disease 1 Occurrences starting 12/06/2023 until 12/05/2024 [facility] Comment on above: 1 Occurrences starting 12/06/2023 until 12/05/2024 End: 01-01-2026 EGD DIAGNOSTIC EGD DIAGNOSTIC Endoscopy Routine Gastroesophageal reflux disease, unspecified whether esophagitis present 1 Occurrences starting 01/01/2025 until 01/01/2026 [facility] Work Phone: Comment on above: 1 Occurrences starting 01/01/2025 until 01/01/2026 End: 01-01-2026 Flexible sigmoidoscopy study COLONOSCOPY DIAGNOSTIC Endoscopy Routine Abdominal cramping Change in bowel habits 1 Occurrences starting 01/01/2025 until 01/01/2026 [facility] Comment on above: 1 Occurrences starting 01/01/2025 until 01/01/2026 End: 01-27-2025 LUNG VOLUMES LUNG VOLUMES PFT Routine Mild persistent asthma without complication 1 Occurrences starting 12/29/2023 until 01/27/2025 [facility] Comment on above: 1 Occurrences starting 12/29/2023 until 01/27/2025 LUNG VOLUMES LUNG VOLUMES PFT Routine Mild persistent asthma without complication 01/20/2024 2:37 PM EDT [facility] Work Phone: End: 12-21-2024 MR Brain WO and W contrast IV MRI BRAIN WO/W IVCON Radiology Routine Headache, unspecified headache type Mental confusion 1 Occurrences starting 11/22/2023 until 12/21/2024 [facility] Comment on above: 1 Occurrences starting 11/22/2023 until 12/21/2024 End: 05-17-2025 MR Lumbar spine WO contrast MRI LUMBAR SPINE WO IVCON Radiology Routine Spinal stenosis of lumbar region with neurogenic claudication 1 Occurrences starting 04/17/2024 until 05/17/2025 [facility] Work Phone: Comment on above: 1 Occurrences starting 04/17/2024 until 05/17/2025 End: 05-13-2024 Mri spinal canal lumbar w/o contrast material MRI LUMBAR SPINE WO IVCON Radiology Routine Bulging lumbar disc Spinal stenosis of lumbar region without neurogenic claudication Spinal stenosis of lumbar region with neurogenic claudication 1 Occurrences starting 04/14/2023 until 05/13/2024 [facility] Work Phone: Comment on above: 1 Occurrences starting 04/14/2023 until 05/13/2024 End: 01-14-2023 NM CARDIAC PERF STRESS/EXERCISE NM CARDIAC PERF STRESS/EXERCISE Radiology Routine VILLEGAS (dyspnea on exertion) 1 Occurrences starting 12/15/2021 until 01/14/2023 [facility] Work Phone: Comment on above: 1 Occurrences starting 12/15/2021 until 01/14/2023 End: 01-26-2026 NM Whole body Bone Views NM BONE WHOLE BODY Radiology Routine Elevated alkaline phosphatase level 1 Occurrences starting 12/27/2024 until 01/26/2026 [facility] Work Phone: Comment on above: 1 Occurrences starting 12/27/2024 until 01/26/2026 Patient Education ED Flank Pain, Uncertain Cause ED Sciatica [facility] Work Phone: Patient referral [facility] Work Phone: End: 02-06-2024 Radex spine lumbosacral minimum 4 views XR LUMBAR MOTION 4V AP/LAT/ FLEX/EXT Radiology Routine Bulging lumbar disc Spinal stenosis of lumbar region without neurogenic claudication 1 Occurrences starting 01/07/2023 until 02/06/2024 [facility] Work Phone: Comment on above: 1 Occurrences starting 01/07/2023 until 02/06/2024 End: 01-18-2025 Screening colonoscopy COLONOSCOPY SCREENING Endoscopy Routine History of colonic polyps Screen for colon cancer 1 Occurrences starting 01/19/2024 until 01/18/2025 [facility] Work Phone: Comment on above: 1 Occurrences starting 01/19/2024 until 01/18/2025 SPINE INTERVENTION PROCEDURE SPINE INTERVENTION PROCEDURE Procedures Routine Bulging lumbar disc Spinal stenosis of lumbar region without neurogenic claudication Spinal stenosis of lumbar region with neurogenic claudication Ordered: 04/14/2023 [facility] Work Phone: Comment on above: Ordered: 04/14/2023 End: 11-23-2022 SPIROMETRY - BASELINE AND POST DILATOR SPIROMETRY - BASELINE AND POST DILATOR PFT Routine Mild persistent asthma without complication SOB (shortness of breath) 1 Occurrences starting 10/24/2021 until 11/23/2022 [facility] Work Phone: Comment on above: 1 Occurrences starting 10/24/2021 until 11/23/2022 SPIROMETRY - BASELIN E AND POST DILATOR SPIROMETRY - BASELINE AND POST DILATOR PFT Routine Mild persistent asthma without complication SOB (shortness of breath) 02/06/2022 8:19 AM EDT [facility] Work Phone: End: 01-27-2025 SPIROMETRY WITH DILATOR IF OBSTRUCTED SPIROMETRY WITH DILATOR IF OBSTRUCTED PFT Routine Mild persistent asthma without complication 1 Occurrences starting 12/29/2023 until 01/27/2025 [facility] Work Phone: Comment on above: 1 Occurrences starting 12/29/2023 until 01/27/2025 SPIROMETRY WITH DILA TOR IF OBSTRUCTED SPIROMETRY WITH DILATOR IF OBSTRUCTED PFT Routine Mild persistent asthma without complication 01/20/2024 2:37 PM EDT [facility] Work Phone: End: 01-17-2026 US Head and neck soft tissue US HEAD/NECK SOFT TISSUE OTHER Radiology Routine Neck mass 1 Occurrences starting 12/18/2024 until 01/17/2026 [facility] Comment on above: 1 Occurrences starting 12/18/2024 until 01/17/2026 US Head and neck sof t tissue US HEAD/NECK SOFT TISSUE OTHER Radiology Routine Neck mass 12/22/2024 2:35 PM EDT [facility] Work Phone: End: 01-13-2024 XR FOOT GENERAL 3V AP/LAT/OBL BILATERAL XR FOOT GENERAL 3V AP/LAT/OBL BILATERAL Radiology Routine Flat feet, bilateral 1 Occurrences starting 12/14/2022 until 01/13/2024 [facility] Work Phone: Comment on above: 1 Occurrences starting 12/14/2022 until 01/13/[address] [facility] Immunizations Immunization Date Immunization Notes Care Provider Fa cility 10-17-2020 tetanus toxoid, redu fortunato diphtheria toxoid, and acellular pertussis vaccine, adsorbed Risa Campa MD Work Phone: [facility] 05-15-2020 influenza, injectabl e, quadrivalent, contains preservative Risa Campa MD Work Phone: [facility] 05-15-2020 influenza virus vacc ine, unspecified formulation Janice Anne PT [facility] 02-07-2019 influenza, injectabl e, quadrivalent, contains preservative Risa Campa MD Work Phone: [facility] 07-05-2018 influenza, injectabl e, quadrivalent, contains preservative Risa Campa MD Work Phone: [facility] 01-05-2017 pneumococcal polysaccharide vaccine, 23 valent Risa Campa MD Work Phone: [facility] Payers Date Payer Category Payer Self-pay 2022 Unknown [id number] 2012 Medicaid [facility]LY [facility] MEDIC AID [facility] MEDICAID [id number] 2012-Present [phone] [address] [place] [address] Medicaid [id number] 2012 Medicaid [id number] Unknown [id number] Social History Date Type Detail Facility Start: 06-16-2018 End: 02-17-2024 Tobacco smoking status NHIS Never smoked tobacco [facility] Start: 06-16-2018 End: 02-03-2022 Tobacco use and exposure User of smokeless tobacco [facility] End: 12-15-2023 History of tobacco use Chews Tobacco [facility] Start: 08-13-2021 End: 01-01-2025 Alcohol intake Current non-drinker of alcohol (finding) [facility] Start: 05-13-2020 History SDOH Alcohol Frequency 1 [facility] Start: 05-13-2020 History SDOH Alcohol Std Drinks 98 [facility] Start: 05-13-2020 History SDOH Social Connections Phone 3 [facility] Start: 05-13-2020 History SDOH Social Connections Membership 2 [facility] Start: 05-13-2020 History SDOH Social Connections Living 8 [facility] Start: 05-13-2020 History SDOH Physical Activity DPW 7 [facility] Start: 05-13-2020 History SDOH Physical Activity MPS 6 [facility] Start: 05-13-2020 History SDOH Stress 4 [facility] Start: 05-12-2020 Education 12 [facility] Start: 1980 Sex Assigned At Male [facility] Start: 09-17-2020 End: 02-03-2022 Exposure to SARS-CoV-2 (event) Not sure [facility] Start: 11-27-2022 Tobacco smoking status NHIS Unknown if ever smoked [facility] Start: 05-12-2020 End: 11-06-2022 History of Social function [facility] Start: 05-12-2020 End: 11-06-2022 Social connection and isolation panel [facility] Do you belong to any clubs or organizations such as episcopalian groups, unions, fraternal or athletic groups, or school groups? No [facility] Are you now , , , , never or living with a partner? Living with partner [facility] How often to you hav e a drink containing alcohol? Never [facility] Start: 04-24-2012 How many standard drinks containing alcohol do you have on a typical day? Patient refused [facility] How hard is it for y ou to pay for the very basics like food, housing, medical care, and heating Hard [facility] Do you feel stress - tense, restless, nervous, or anxious, or unable to sleep at night because your mind is troubled all the time - these days [OSQ] Rather much [facility] (I/We) worried wheth er (my/our) food would run out before (I/we) got money to buy more. Often true [facility] The food that (I/we) bought just didn't last, and (I/we) didn't have money to get more. Sometimes true [facility] Start: 05-20-2020 Gender identity Identifies as male gender (finding) [facility] Start: 05-20-2020 Sexual orientation Heterosexual (finding) [facility] Start: 02-17-2024 Tobacco use and exposure Former smokeless tobacco user [facility] Clinical Notes 08-08-2015 to 03-01-2025 Yina Oliveira, RT(R) - 01/05/2025 7:30 AM Silas Mcgregor MD - 01/01/2025 3:48 PM EDTTelephone Encounter - Carmen Porter RN - 01/01/2025 3:40 PM EDTPatient InstructionsPatient Instructions Note Date & Type Note Facility 03-01-2025 Note HNO ID: [id number] Author: MAK MORALES PT Service: ? Author Type: Physical Therapist Type: Progress Notes Filed: 03/01/2025 08:58 Note Text: 03/01/2025 [facility] PHYSICAL THERAPY DISCONTINUANCE OF CARE Plan of Care Period: Start of Care Date: 06/29/24 Last Visit Date: 07/17/2024 Therapy Program: The following is a summary of the interventions provided for this episode of care; Therapeutic exercise Assessment: Based on most recent visit, patient was progressing as expected toward functional goals based on pain levels and documented subjective information on progress. Unable to formally assess goal achievement, as patient has not returned to therapy or scheduled additional follow-up appointments. Reason for Discontinuation of Care: Patient has not returned to therapy or scheduled additional follow-up appointments. Mak Morales PT [facility] 02-12-2025 Note HNO ID: [id number] Author: RISA CAMPA MD Service: ? Author Type: Physician Type: Progress Notes Filed: 02/12/2025 09:42 Note Text: [facility] Cardiology ([facility]) [address] [facility] [id number] OUTPATIENT VISIT DATE 02/12/2025 PRIMARY CARE PHYSICIAN: Conor Pantoja [address] [place] [address] CHIEF COMPLAINT: HISTORY OF PRESENT ILLNESS: Mr. Vega is a 44 year old gentleman with borderline hypertension, dyslipidemia, and ongoing nicotine use (chewing tobacco) who presents for routine follow-up. The patient reports a recent whole-body scan to rule out bone cancer and an ultrasound of the neck due to persistent pain and tightness. He is scheduled to follow up with his clinician regarding these issues. He mentions a sensation of hearing his heartbeat in his ear during physical activity, which he describes as not happening in a while. 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 He does not regularly monitor his blood pressure at home but believes it is generally within normal limits. He denies any known cardiac issues. He has a family history of hypertension in his father and CHF in his grandfather. He is unaware of any family history on his mother's side due to adoption. He has a history of chewing tobacco but has since quit. PAST MEDICAL HISTORY Diagnosis Date Abdominal pain Anxiety Asthma (HCC) Depression VILLEGAS (dyspnea on exertion) HTN (hypertension) Mixed hyperlipidemia Obesity Primary cardiomyopathy (HCC) Sleep apnea Spinal stenosis PAST SURGICAL HISTORY Procedure Laterality Date COLONOSCOPY 06/15/2022 repeat in 1 year with MAC COLONOSCOPY FLX DX W/COLLJ SPEC WHEN PFRMD 08/21/2015 Colonoscopy with mac ESOPHAGOGASTRODUODENOSCOPY TRANSORAL DIAGNOSTIC 08/21/2015 EGD with mac LAMINECTOMY,LUMBAR 06/06/2024 Lumbar level 1 PAST SURGICAL HISTORY OF fatty cyst removed from stomach PAST SURGICAL HISTORY OF wisdom teeth SOCIAL HISTORY Social History Tobacco Use Smoking status: Never Smokeless tobacco: Former Types: Chew Quit date: 12/15/2023 Vaping Use Vaping status: Never Used Substance Use Topics Alcohol use: No Drug use: No FAMILY HISTORY Problem Relation Age of Onset Heart Father Colon Cancer Father other (colitis) Father other (autism) Son GI issues/ear problems/adhd ALLERGIES: ALLERGIES Allergen Reactions Acetaminophen-Codei* Rash Seasonal Allergies Unknown CATS, DOGS, COCKROACHES, MOLDS, TREES, GRASSES, WEEDS AND RAGWEED VERIFIED BY SKIN TESTING Darren [Alona* Other: See Comments irritable MEDICATIONS: amLODIPine (NORVASC) 5 mg tablet Take 1 tablet by mouth once daily. omeprazole (PRILOSEC) 40 mg capsule Take 1 capsule by mouth once daily. benzonatate (TESSALON PERLE) 100 mg capsule Take 1 capsule by mouth three times a day as needed. guanFACINE (TENEX) 2 mg tablet mometasone (ELOCON) 0.1 % cream Apply 1 application to affected area once daily. QELBREE 100 mg capsule, extended release Take 400 mg by mouth every morning. Take a total of 500 mg; two 200 mg and one 100 mg melatonin 3 mg tablet TAKE 1 TABLET APPROXIMATELY 7PM NIGHTLY. clotrimazole-betamethasone (LOTRISONE) cream Apply to affected area twice daily. APPLY TO AFFECTED AREA fluticasone-salmeterol HFA (ADVAIR HFA) 115-21 mcg/actuation inhaler Inhale 2 Puffs as instructed twice daily. Rinse mouth after use. albuterol (PROVENTIL) 2.5 mg /3 mL (0.083 %) nebulizer solution Use 3 mL via nebulizer every 4 hours as needed for wheezing/shortness of breath. Use over 5-15minutes. ipratropium-albuterol (DUONEB) 0.5 mg-3 mg(2.5 mg base)/3 mL nebu Inhale 3 mL as instructed every 6 hours as needed (wheezing). albuterol HFA (VENTOLIN HFA) 90 mcg/actuation inhaler INHALE 2 PUFFS BY MOUTH DIRECTED EVERY 4 HOURS NEEDED FOR WHEEZING OR SHORTNESS OF BREATH CPAP Initiate Auto PAP @ 5-20 cm of water with humidification. Mask (per patient preference) optional chin strap (if indicated) , filters, tubing, humidifier and lifetime supplies. fluticasone (FLONASE) 50 mcg/actuation nasal spray Use 2 Sprays in each nostril once daily. cetirizine (ZYRTEC) 10 mg tablet Take 1 tablet by mouth once daily as needed. REVIEW OF SYSTEMS: Review of Systems Constitutional: Negative for chills, fever, malaise/fatigue and weight loss. HENT: Negative for hearing loss and sore throat. Eyes: Negative for blurred vision and double vision. Respiratory: Negative. Cardiovascular: Negative. Gastrointestinal: Negative. Genitourinary: Negative for dysuria, frequency, hematuria and urgency. Musculoskeletal: Negative. Skin: Negative. Neurological: Negative for dizziness, seizures, loss of (more content not included)... [facility] 01-05-2025 History of Present illness Narrative RADIOLOGY SERVICE PROGRESS NOTE SERVICE DATE: 01/05/2025 SERVICE TIME: 07:35 AM PATIENT IDENTITY VERIFICATION COMPLETED USING TWO (2) STANDARD IDENTIFIERS: Name and Date of confirmed by patient verbally FALL SCREENING: Has the patient had 2 falls in the last year or 1 fall with injury or currently using an Ambulatory Assistive Device (Walker, Cane, Wheelchair, Crutches, etc.)? No PATIENT GENDER DATA: .male ALLERGIES: Reviewed and unchanged MEDICATIONS REVIEWED: No PATIENT RELEVANT IMPLANT DATA REVIEWED: Not Applicable PATIENT PRESENTS WITH AN IMPLANTABLE OR ATTACHED REAL TIME ANALYST: n/a CREATININE: Creatinine Date Value Ref Range Status 12/18/2024 1.02 0.73 - 1.22 mg/dL Final 05/15/2024 1.19 0.73 - 1.22 mg/dL Final 11/22/2023 1.20 0.73 - 1.22 mg/dL Final Estimated Glomerular Filtration Rate Date Value Ref Range Status 12/18/2024 93 >=60 mL/min/1.73m Final Comment: Estimated Glomerular Filtration Rate (eGFR) is calculated using the 2020 CKD-EPI creatinine equation. This equation utilizes serum creatinine, sex, and age as parameters. The creatinine assay has traceable calibration to isotope dilution-mass spectrometry. Refer to KDIGO guidelines for clinical interpretation. In patients with unstable renal function, e.g. those with acute kidney injury, the eGFR may not accurately reflect actual GFR. eGFR- Date Value Ref Range Status 09/03/2020 >60 Final P.O.C.T. RESULTS: N/A January 05, [address] PERFORMED: No IV SITE: Ambulatory: A peripheral IV was started in the Right antecubital site with a Angio cath: 24 gauge. POST EXAM PIV STATUS: Discontinued PROCEDURE TYPE: NM INJECT: Whole Body Bone Scan. 22.4 mCi Tc99m MDP. Administered By: . No other medications given.. ADMINISTRATION TIME: 07:45 PATIENT DISCHARGED TO: Ambulatory patient, left [place] department area. Is this a therapy: No A Diagnostic radioactive procedure has taken place, with no further precautions necessary other than routine body substance precautions. More information regarding radiation safety can be found using this link: [email or web address]%20Nuclear%20Medicine% [email or web address] SIGNATURE: ANNA Tariq) PATIENT NAME: Jaime Vega DATE: January 05, 2025 TIME: 11:20 AM PAGER/CONTACT #: documented in this encounter [facility] 01-05-2025 Note HNO ID: [id number] Author: YINA OLIVEIRA RT (R) Service: Nuclear Medicine Author Type: Technologist Type: Progress Notes Filed: 01/05/2025 11:37 Note Text: RADIOLOGY SERVICE PROGRESS NOTE SERVICE DATE: 01/05/2025 SERVICE TIME: 07:35 AM PATIENT IDENTITY VERIFICATION COMPLETED USING TWO (2) STANDARD IDENTIFIERS: Name and Date of confirmed by patient verbally FALL SCREENING: Has the patient had 2 falls in the last year or 1 fall with injury or currently using an Ambulatory Assistive Device (Walker, Cane, Wheelchair, Crutches, etc.)? No PATIENT GENDER DATA: .male ALLERGIES: Reviewed and unchanged MEDICATIONS REVIEWED: No PATIENT RELEVANT IMPLANT DATA REVIEWED: Not Applicable PATIENT PRESENTS WITH AN IMPLANTABLE OR ATTACHED REAL TIME ANALYST: n/a CREATININE: Creatinine Date Value Ref Range Status 12/18/2024 1.02 0.73 - 1.22 mg/dL Final 05/15/2024 1.19 0.73 - 1.22 mg/dL Final 11/22/2023 1.20 0.73 - 1.22 mg/dL Final Estimated Glomerular Filtration Rate Date Value Ref Range Status 12/18/2024 93 >=60 mL/min/1.73m? Final Comment: Estimated Glomerular Filtration Rate (eGFR) is calculated using the 2020 CKD-EPI creatinine equation. This equation utilizes serum creatinine, sex, and age as parameters. The creatinine assay has traceable calibration to isotope dilution-mass spectrometry. Refer to KDIGO guidelines for clinical interpretation. In patients with unstable renal function, e.g. those with acute kidney injury, the eGFR may not accurately reflect actual GFR. eGFR- Date Value Ref Range Status 09/03/2020 >60 Final P.O.C.T. RESULTS: N/A January 05, [address] PERFORMED: No IV SITE: Ambulatory: A peripheral IV was started in the Right antecubital site with a Angio cath: 24 gauge. POST EXAM PIV STATUS: Discontinued PROCEDURE TYPE: NM INJECT: Whole Body Bone Scan. 22.4 mCi Tc99m MDP. Administered By: . No other medications given.. ADMINISTRATION TIME: 07:45 PATIENT DISCHARGED TO: Ambulatory patient, left [place] department area. Is this a therapy: No A Diagnostic radioactive procedure has taken place, with no further precautions necessary other than routine body substance precautions. More information regarding radiation safety can be found using this link: [email or web address] [email or web address] 20Diagnostic%20Nuclear%20Medicine%20Pr [email or web address] SIGNATURE: RT Lauro(R) PATIENT NAME: Jaime Vega DATE: January 05, 2025 TIME: 11:20 AM PAGER/CONTACT #: [facility] 01-01-2025 Note HNO ID: [id number] Author: SILAS BROWN MD Service: ? Author Type: Physician Type: Progress Notes Filed: 01/01/2025 15:50 Note Text: SPINE SURGERY ESTABLISHED PATIENT I have communicated my name and active licensure. The patient's identity and physical location were verified at the time of this visit. Either the patient or their legal senior customer service representative has been informed of the risks and benefits of -- and alternatives to -- treatment through a remote evaluation and consents to proceed with the evaluation remotely. PCP: Conor Pantoja MD REFERRING PROVIDER: No referring provider defined for this encounter. I spent 15 minutes discussing with the patient his/her symptoms and future plans Assessment/Plan (M54.16) Lumbar radiculopathy (primary encounter diagnosis) 1. Lumbar radiculopathy (M54.16) - Symptoms improving overall, with intermittent paresthesia and discomfort when sitting for prolonged periods. - Advised alternating between sitting and standing every couple of hours during work to minimize nerve irritation. - Recommended daily stretching of the back and legs before and after work. - Provided education on the typical recovery timeline, noting that symptoms may continue to improve over 12-18 months. - Encouraged continuation of current weight management efforts and proper lifting techniques. - No routine follow-up scheduled; advised to call if symptoms worsen or if additional concerns arise. Subjective Chief Complaint: History of Present Illness: Jaime Vega is a 44-year-old male presenting for follow-up regarding intermittent numbness and discomfort in the leg when sitting. Jaime reports experiencing intermittent numbness and discomfort in the leg, described as feeling aggravated, which occurs only when sitting in a chair. He notes that this does not happen every time he sits and is currently not experiencing discomfort while seated during the visit. He believes the symptoms may be related to nerve healing and mentions a previous appointment where he was informed that full recovery could take 12 to 18 months. Despite the discomfort, he feels that his condition is so much better than being in pain every single day. 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 He is mindful of his lifting activities, ensuring that he lifts with his legs and avoids heavy lifting, typically under 100 pounds. He uses lifts and jacks for lawnmowers to minimize heavy lifting. He is also actively working on weight reduction to decrease pressure on his back and facilitate healing. Musculoskeletal: (+) leg discomfort when sitting Neurological: (+) intermittent leg numbness when sitting Major Risk Factors Notable surgical risk factors: Smoking status: Never BMI:35.5 kg/m2. Obesity Moderate Risk BMI: 35.5 kg/m2 High: BMI > 40 Moderate: BMI 30-40 Normal: BMI < 30 Diabetes normal High: A1C > 8 Moderate: A1C 7-8 Normal: A1C < 7 Hx of DVT / PE normal High: dx of DVT / PE Normal: no dx of DVT / PE Smoking normal Last Status: Never High: Current smoker Normal: Non smoker Narcotics Use normal High:NarxCare >=300 Moderate: 100-299 Normal: 0-99 Depression Moderate Risk High: PHQ-9 >14 Moderate: PHQ-9 5-14 Normal: PHQ-9 < 5 Data from [facility] Epic on prior therapies: Last PT session: Date - 07/17/2024 Last Epidural Steroid Injection: No epidural injection on file for last 365 days Last Spine Surgery: Date - 06/06/2024 with Silas Brown. Procedure: Right lumbar 4-5 microdiscectomy - LAMNOTMY INCL W/DCMPRSN NRV ROOT 1 INTRSPC LUMBR Objective PHYSICAL EXAM There were no vitals taken for this visit. No physical exam available. Results: [facility] 01-01-2025 History of Present illness Narrative Images from the original note were not included. SPINE SURGERY ESTABLISHED PATIENT I have communicated my name and active licensure. The patient's identity and physical location were verified at the time of this visit. Either the patient or their legal senior customer service representative has been informed of the risks and benefits of -- and alternatives to -- treatment through a remote evaluation and consents to proceed with the evaluation remotely. PCP: Conor Pantoja MD REFERRING PROVIDER: No referring provider defined for this encounter. I spent 15 minutes discussing with the patient his/her symptoms and future plans Assessment/Plan (M54.16) Lumbar radiculopathy (primary encounter diagnosis) 1. Lumbar radiculopathy (M54.16) - Symptoms improving overall, with intermittent paresthesia and discomfort when sitting for prolonged periods. - Advised alternating between sitting and standing every couple of hours during work to minimize nerve irritation. - Recommended daily stretching of the back and legs before and after work. - Provided education on the typical recovery timeline, noting that symptoms may continue to improve over 12-18 months. - Encouraged continuation of current weight management efforts and proper lifting techniques. - No routine follow-up scheduled; advised to call if symptoms worsen or if additional concerns arise. Subjective Chief Complaint: History of Present Illness: Jaime Vega is a 44-year-old male presenting for follow-up regarding intermittent numbness and discomfort in the leg when sitting. Jaime reports experiencing intermittent numbness and discomfort in the leg, described as feeling aggravated, which occurs only when sitting in a chair. He notes that this does not happen every time he sits and is currently not experiencing discomfort while seated during the visit. He believes the symptoms may be related to nerve healing and mentions a previous appointment where he was informed that full recovery could take 12 to 18 months. Despite the discomfort, he feels that his condition is so much better than being in pain every single day. 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 He is mindful of his lifting activities, ensuring that he lifts with his legs and avoids heavy lifting, typically under 100 pounds. He uses lifts and jacks for lawnmowers to minimize heavy lifting. He is also actively working on weight reduction to decrease pressure on his back and facilitate healing. Musculoskeletal: (+) leg discomfort when sitting Neurological: (+) intermittent leg numbness when sitting Major Risk Factors Notable surgical risk factors: Smoking status: Never BMI:35.5 kg/m2. Obesity Moderate Risk BMI: 35.5 kg/m2 High: BMI > 40 Moderate: BMI 30-40 Normal: BMI < 30 Diabetes normal High: A1C > 8 Moderate: A1C 7-8 Normal: A1C < 7 Hx of DVT / PE normal High: dx of DVT / PE Normal: no dx of DVT / PE Smoking normal Last Status: Never High: Current smoker Normal: Non smoker Narcotics Use normal High:NarxCare >=300 Moderate: 100-299 Normal: 0-99 Depression Moderate Risk High: PHQ-9 >14 Moderate: PHQ-9 5-14 Normal: PHQ-9 < 5 Data from [facility] Epic on prior therapies: Last PT session: Date - 07/17/2024 Last Epidural Steroid Injection: No epidural injection on file for last 365 days Last Spine Surgery: Date - 06/06/2024 with Silas Brown. Procedure: Right lumbar 4-5 microdiscectomy - LAMNOTMY INCL W/DCMPRSN NRV ROOT 1 INTRSPC LUMBR Objective PHYSICAL EXAM There were no vitals taken for this visit. No physical exam available. Results: documented in this encounter [facility] 01-01-2025 Telephone encounter Note Patient was in General Surgery appointment today asking about message. Informed patient of message below. Patient verbalized understanding. Scheduled 01/05 for bone scan. [facility] 01-01-2025 Miscellaneous Notes Patient was in General Surgery appointment today asking about message. Informed patient of message below. Patient verbalized understanding. Scheduled 01/05 for bone scan. Called and left a voicemail for the Patient to call back and ask for a nurse to receive the providers message. Carmen Meraz RN Bone alk phos is up. Likely can be ok from things like arthritis etc, however, check bone scan to make sure is ok. documented in this encounter [facility] 01-01-2025 History of Present illness Narrative HISTORY AND PHYSICAL Jaime Lomax Vega : 1980 REFERRING PHYSICIAN: Conor Pantoja [address] [facility] [address] CHIEF COMPLAINT: Patient presents with: New Patient: Referral from Dr. Pantoja: GERD, Abdominal pain, change in bowel function HPI: Jaime is a 44 year old male referred for endoscopy. Jaime notes due for screening colonoscopy- hx of polyps (2022), family hx of colon cancer in father. Jaime notes some abdominal burning -watching diet has helped Jaime denies diarrhea. -but notes occasional stool incontinence -feels like he isn't completely evacuating stool since May Jaime notes recent constipation. Jaime denies melena. Jaime notes bright red blood per rectum. Jaime notes possibly external hemorrhoid Jaime notes heartburn. -Takes omeprazole daily with good symptom management -had stopped for awhile and had burning in his chest Jaime denies dysphagia. Jaime denies a history of ulcers/ peptic ulcer disease. Jaime's follows with [facility] cardiology for HTN, HLD, cardiomyopathy s/p COVID. Next appt 02/12/25. He denies CP, SOB, dizziness, palpitations, syncope, edema, recent hospitalizations Other medical history is significant for asthma, KAI c/w CPAP, obesity and back pain. Jaime has undergone prior endoscopy. Last colonoscopy over [address] Dunn at [facility]. Impression: - Preparation of the colon was poor. - One medium polyp in the descending colon, removed with a hot snare. Resected and retrieved. - The examination was otherwise normal on direct and retroflexion views. Pathology: FINAL DIAGNOSIS A. Colon, descending, polypectomy - Tubular adenoma *Recommendation for MAC and 2-day bowel prep and adult scope Current Outpatient Medications Medication Sig amLODIPine (NORVASC) 5 mg tablet Take 1 tablet by mouth once daily. omeprazole (PRILOSEC) 40 mg capsule Take 1 capsule by mouth once daily. benzonatate (TESSALON PERLE) 100 mg capsule Take 1 capsule by mouth three times a day as needed. guanFACINE (TENEX) 2 mg tablet mometasone (ELOCON) 0.1 % cream Apply 1 application to affected area once daily. QELBREE 100 mg capsule, extended release Take 200 mg by mouth every morning. Take a total of 500 mg; two 200 mg and one 100 mg melatonin 3 mg tablet TAKE 1 TABLET APPROXIMATELY 7PM NIGHTLY. clotrimazole-betamethasone (LOTRISONE) cream Apply to affected area twice daily. APPLY TO AFFECTED AREA fluticasone-salmeterol HFA (ADVAIR HFA) 115-21 mcg/actuation inhaler Inhale 2 Puffs as instructed twice daily. Rinse mouth after use. albuterol (PROVENTIL) 2.5 mg /3 mL (0.083 %) nebulizer solution Use 3 mL via nebulizer every 4 hours as needed for wheezing/shortness of breath. Use over 5-15minutes. ipratropium-albuterol (DUONEB) 0.5 mg-3 mg(2.5 mg base)/3 mL nebu Inhale 3 mL as instructed every 6 hours as needed (wheezing). albuterol HFA (VENTOLIN HFA) 90 mcg/actuation inhaler INHALE 2 PUFFS BY MOUTH DIRECTED EVERY 4 HOURS NEEDED FOR WHEEZING OR SHORTNESS OF BREATH CPAP Initiate Auto PAP @ 5-20 cm of water with humidification. Mask (per patient preference) optional chin strap (if indicated) , filters, tubing, humidifier and lifetime supplies. fluticasone (FLONASE) 50 mcg/actuation nasal spray Use 2 Sprays in each nostril once daily. cetirizine (ZYRTEC) 10 mg tablet Take 1 tablet by mouth once daily as needed. No current facility-administered medications for this visit. ALLERGIES: Acetaminophen-Codeine, Seasonal Allergies, and Singulair [Montelukast Sodium] Past Medical History: No date: Abdominal pain No date: Anxiety No date: Asthma (HCC) No date: Depression No date: VILLEGAS (dyspnea on exertion) No date: HTN (hypertension) No date: Mixed hyperlipidemia No date: Obesity No date: Primary cardiomyopathy (HCC) No date: Sleep apnea No date: Spinal stenosis PAST SURGICAL HISTORY Procedure Laterality Date COLONOSCOPY 06/15/2022 repeat in 1 year with MAC COLONOSCOPY FLX DX W/COLLJ SPEC WHEN PFRMD 08/21/2015 Colonoscopy with mac ESOPHAGOGASTRODUODENOSCOPY TRANSORAL DIAGNOSTIC 08/21/2015 EGD with mac LAMINECTOMY,LUMBAR 06/06/2024 Lumbar level 1 PAST SURGICAL HISTORY OF fatty cyst removed from stomach PAST SURGICAL HISTORY OF wisdom teeth Review of patient's family history indicates: Problem: Heart Relation: Father Age of Onset: (Not Specified) Problem: Colon Cancer Relation: Father Age of Onset: (Not Specified) Problem: other (colitis) Relation: Father Age of Onset: (Not Specified) Problem: other (autism) Relation: Son Age of Onset: (Not Specified) Comment: GI issues/ear problems/adhd Social History Tobacco Use Smoking status: Never Smokeless tobacco: Former Types: Chew Quit date: 12/15/2023 Vaping Use Vaping status: Never Used Substance Use Topics Alcohol use: No Drug use: No PHYSICAL EXAMINATION: General: The patient is 44 year old, male well nourished, well hydrated in no acute distress. The patient is oriented to time, place, and person. VITALS: Blood pressure 125/78, pulse 73, temperature 36.7 C (98.1 F), temperature source Temporal, resp. rate 18, weight 109 kg (240 lb 6.4 oz), SpO2 100%. Body mass index is 35.5 kg/m . HEENT: Normal cephalic, ataumatic, pupils are equally round, sclera are anicteric, mucous membranes are moist, oropharynx is clear. Neck has no masses or asymmetry . Respiratory: Clear to auscultation. Cardiac: Regular rate and rhythm. Abdominal exam: Soft, nontender, with no palpable masses. No hepatosplenomegaly. No palpable hernias. Extremities: no clubbing or cyanosis LABORATORY VALUES: As Noted RADIOLOGIC STUDIES: As Noted Assessment IMPRESSION: abdominal cramping, change in bowel habits, GERD PLAN: I have reviewed my findings with the surgeon. Will plan for upper and lower endoscopy. We discussed the risks and benefits of the planned endoscopy in terms understandable to the patient. I have informed the patient that complications can occur including failure to complete the endoscopy and perforation. Jaime had the opportunity to ask questions concerning the planned endoscopy. Jaime freely consents to surgery. I plan to use miraLAX bowel preparation I have explained to the patient the difference between IV conscious sedation and MAC anesthesia - and I have offered either, according to the patient's wishes. I have explained that with IV conscious sedation there is no anesthesia provider available and therefore there is a limitation of the amount of IV medications that can be given and that the patient may wake up in the middle of the procedure and/or experience pain/discomfort during the procedure. Further discussion was done and the patient was given the opportunity to ask questions and all questions were answered. MAC anesthesia. Jaime was counseled that if there are changes in his/her medical condition, to let the office know if surgery should proceed. If there are changes in patient's medical condition from time of this encounter to the day of the procedure that preclude anesthesia, patient may have procedure cancelled for patient's safety. Diagnoses: (K21.9) Gastroesophageal reflux disease, unspecified whether esophagitis present (primary encounter diagnosis) (R10.9) Abdominal cramping (R19.4) Change in bowel habits Consultation requested by Dr. Pantoja for an opinion regarding GERD, change in bowels, abdominal discomfort. My final recommendations will be communicated back to the requesting physician by way of shared Medical record or letter to requesting physician via US mail. Portions of this documentation were copied and pasted from previous office visit notes in order to provide a cohesive continuity of the history. The note has been reviewed and edited and updated as necessary. Alyse Magana APRN.GRAIN DRIER documented in this encounter [facility] 01-01-2025 Note HNO ID: [id number] Author: ALYSE MAGANA APRN.TIFFANY Service: ? Author Type: Nurse Practitioner Type: Progress Notes Filed: 01/01/2025 15:33 Note Text: HISTORY AND PHYSICAL Jaime Vega : 1980 REFERRING PHYSICIAN: Conor Pantoja [address] [facility] [address] CHIEF COMPLAINT: Patient presents with: New Patient: Referral from Dr. Pantoja: GERD, Abdominal pain, change in bowel function HPI: Jaime is a 44 year old male referred for endoscopy. Jaime notes due for screening colonoscopy- hx of polyps (2022), family hx of colon cancer in father. Jaime notes some abdominal burning -watching diet has helped Jaime denies diarrhea. -but notes occasional stool incontinence -feels like he isn't completely evacuating stool since May Jaime notes recent constipation. Jaime denies melena. Jaime notes bright red blood per rectum. Jaime notes possibly external hemorrhoid Jaime notes heartburn. -Takes omeprazole daily with good symptom management -had stopped for awhile and had burning in his chest Jaime denies dysphagia. Jaime denies a history of ulcers/ peptic ulcer disease. Jaime's follows with [facility] cardiology for HTN, HLD, cardiomyopathy s/p COVID. Next appt 02/12/25. He denies CP, SOB, dizziness, palpitations, syncope, edema, recent hospitalizations Other medical history is significant for asthma, KAI c/w CPAP, obesity and back pain. Jaime has undergone prior endoscopy. Last colonoscopy over [address] Dunn at [facility]. Impression: - Preparation of the colon was poor. - One medium polyp in the descending colon, removed with a hot snare. Resected and retrieved. - The examination was otherwise normal on direct and retroflexion views. Pathology: FINAL DIAGNOSIS A. Colon, descending, polypectomy - Tubular adenoma *Recommendation for MAC and 2-day bowel prep and adult scope Current Outpatient Medications Medication Sig amLODIPine (NORVASC) 5 mg tablet Take 1 tablet by mouth once daily. omeprazole (PRILOSEC) 40 mg capsule Take 1 capsule by mouth once daily. benzonatate (TESSALON PERLE) 100 mg capsule Take 1 capsule by mouth three times a day as needed. guanFACINE (TENEX) 2 mg tablet mometasone (ELOCON) 0.1 % cream Apply 1 application to affected area once daily. QELBREE 100 mg capsule, extended release Take 200 mg by mouth every morning. Take a total of 500 mg; two 200 mg and one 100 mg melatonin 3 mg tablet TAKE 1 TABLET APPROXIMATELY 7PM NIGHTLY. clotrimazole-betamethasone (LOTRISONE) cream Apply to affected area twice daily. APPLY TO AFFECTED AREA fluticasone-salmeterol HFA (ADVAIR HFA) 115-21 mcg/actuation inhaler Inhale 2 Puffs as instructed twice daily. Rinse mouth after use. albuterol (PROVENTIL) 2.5 mg /3 mL (0.083 %) nebulizer solution Use 3 mL via nebulizer every 4 hours as needed for wheezing/shortness of breath. Use over 5-15minutes. ipratropium-albuterol (DUONEB) 0.5 mg-3 mg(2.5 mg base)/3 mL nebu Inhale 3 mL as instructed every 6 hours as needed (wheezing). albuterol HFA (VENTOLIN HFA) 90 mcg/actuation inhaler INHALE 2 PUFFS BY MOUTH DIRECTED EVERY 4 HOURS NEEDED FOR WHEEZING OR SHORTNESS OF BREATH CPAP Initiate Auto PAP @ 5-20 cm of water with humidification. Mask (per patient preference) optional chin strap (if indicated) , filters, tubing, humidifier and lifetime supplies. fluticasone (FLONASE) 50 mcg/actuation nasal spray Use 2 Sprays in each nostril once daily. cetirizine (ZYRTEC) 10 mg tablet Take 1 tablet by mouth once daily as needed. No current facility-administered medications for this visit. ALLERGIES: Acetaminophen-Codeine, Seasonal Allergies, and Singulair [Montelukast Sodium] Past Medical History: No date: Abdominal pain No date: Anxiety No date: Asthma (HCC) No date: Depression No date: VILLEGAS (dyspnea on exertion) No date: HTN (hypertension) No date: Mixed hyperlipidemia No date: Obesity No date: Primary cardiomyopathy (HCC) No date: Sleep apnea No date: Spinal stenosis PAST SURGICAL HISTORY Procedure Laterality Date COLONOSCOPY 06/15/2022 repeat in 1 year with MAC COLONOSCOPY FLX DX W/COLLJ SPEC WHEN PFRMD 08/21/2015 Colonoscopy with mac ESOPHAGOGASTRODUODENOSCOPY TRANSORAL DIAGNOSTIC 08/21/2015 EGD with mac LAMINECTOMY,LUMBAR 06/06/2024 Lumbar level 1 PAST SURGICAL HISTORY OF fatty cyst removed from stomach PAST SURGICAL HISTORY OF wisdom teeth Review of patient's family history indicates: Problem: Heart Relation: Father Age of Onset: (Not Specified) Problem: Colon Cancer Relation: Father Age of Onset: (Not Specified) Problem: other (colitis) Relation: Father Age of Onset: (Not Specified) Problem: other (autism) Relation: Son Age of Onset: (Not Specified) Comment: GI issues/ear problems/adhd Social History Tobacco Use Smoking status: Never Smokeless tobacco: Former Types: Chew Quit date: 12/15/2023 Vaping Use Vaping status: (more content not included)... [facility] 12-27-2024 Telephone encounter Note Called and left a voicemail for the Patient to call back and ask for a nurse to receive the providers message. Carmen Meraz RN [facility] 12-27-2024 Telephone encounter Note Bone alk phos is up. Likely can be ok from things like arthritis etc, however, check bone scan to make sure is ok. [facility] 12-22-2024 History of Present illness Narrative Radiology Service Progress Note PATIENT NAME: Jaime Vega DATE OF SERVICE: December 22, 2024 TIME: 3:03 PM PATIENT IDENTITY VERIFICATION COMPLETED USING TWO (2) IDENTIFIERS: Name and Date of confirmed by patient verbally. FALL SCREENING: Has the patient had 2 falls in the last year or 1 fall with injury or currently using an Ambulatory Assistive Device (Walker, Cane, Wheelchair, Crutches, etc.)? No PATIENT GENDER DATA: Assigned male at PATIENT RELEVANT IMPLANT DATA REVIEWED: Not Applicable PATIENT PRESENTS WITH AN IMPLANTABLE OR ATTACHED REAL TIME ANALYST: No RADIOLOGY DEPARTMENT: Ultrasound PERIPHERAL IV DATA: Not applicable SIGNED BY: Ju Mcdaniels RDMS Co[place] December 22, 2024 3:03 PM documented in this encounter [facility] 12-22-2024 Note HNO ID: [id number] Author: JU MCDANIELS RDMS Service: ? Author Type: Service Center Coordinator Type: Progress Notes Filed: 12/22/2024 15:03 Note Text: Radiology Service Progress Note PATIENT NAME: Jaime Vega DATE OF SERVICE: December 22, 2024 TIME: 3:03 PM PATIENT IDENTITY VERIFICATION COMPLETED USING TWO (2) IDENTIFIERS: Name and Date of confirmed by patient verbally. FALL SCREENING: Has the patient had 2 falls in the last year or 1 fall with injury or currently using an Ambulatory Assistive Device (Walker, Cane, Wheelchair, Crutches, etc.)? No PATIENT GENDER DATA: Assigned male at PATIENT RELEVANT IMPLANT DATA REVIEWED: Not Applicable PATIENT PRESENTS WITH AN IMPLANTABLE OR ATTACHED REAL TIME ANALYST: No RADIOLOGY DEPARTMENT: Ultrasound PERIPHERAL IV DATA: Not applicable SIGNED BY: Ju Mcdaniels RDMS [place] December 22, 2024 3:03 PM [facility] 12-19-2024 Telephone encounter Note Patient calls and results and provider message reviewed. Patient reports he saw the results on and scheduled to have lab completed on Wednesday12/22/2024. Conchita Vanegas RN [facility] 12-19-2024 Miscellaneous Notes Patient calls and results and provider message reviewed. Patient reports he saw the results on [facility] and scheduled to have lab completed on Wednesday12/22/2024. Conchita Vanegas RN Left message to call and speak with nurse. documented in this encounter [facility] 12-19-2024 Telephone encounter Note Left message to call and speak with nurse. [facility] 12-18-2024 Instructions Conor Pantoja MD - 12/18/2024 3:54 PM EDT - Take omeprazole (Prilosec) every day as prescribed to help with heartburn and stomach discomfort. - Get blood tests today, including: Complete blood count (CBC) Comprehensive metabolic panel (CMP) Lipase Non-fasting lipid panel - Have an ultrasound of the soft tissue on the left side of your neck to evaluate the lump you ve been feeling. - Contact the [facility] to schedule a colonoscopy with our GI surgeon (Mona/Mike) for further evaluation of your abdominal symptoms. - Keep your cardiology appointment in January as planned. - Keep your follow-up appointment with this clinic in February. documented in this encounter [facility] 12-18-2024 History of Present illness Narrative Jaime Vega is a 44-year-old male presenting for evaluation of abdominal discomfort, bowel irregularities, and a palpable neck mass. HPI Abdominal Discomfort and Bowel Irregularities: - Abdominal discomfort described as inflamed and hot from epigastric to pelvic region. - Bowel irregularities with incomplete evacuation and urgency to defecate shortly after initial bowel movement. - Occasional stool leakage without active defecation effort. - Hematochezia noted; denies melena. - Occasional nausea and sour belching; denies emesis. - Inconsistent use of omeprazole. - Denies fever, chills, or weight loss. - Jaime is overdue for colonoscopy; has not completed recommended blood work. Neck Mass: - Palpable fullness under the left jaw, approximately 2 cm in diameter. - Mass has been present for a few months, with intermittent visibility and sensation. - No associated pain or changes in size or shape. - Denies other lumps or bumps in the axillary region. Post-Operative Status: - Jaime underwent back surgery in May. - Discontinued prescribed medication in mid-June due to improvement in pain. - Has not taken pain medication since surgery. MEDICATIONS: Current Outpatient Medications Medication Sig amLODIPine (NORVASC) 5 mg tablet Take 1 tablet by mouth once daily. omeprazole (PRILOSEC) 40 mg capsule Take 1 capsule by mouth once daily. (Patient taking differently: Take 40 mg by mouth once daily. States needs it but does not take every day) benzonatate (TESSALON PERLE) 100 mg capsule Take 1 capsule by mouth three times a day as needed. mupirocin (BACTROBAN) 2% oint Use 0.5 g in the nose two times a day. guanFACINE (TENEX) 2 mg tablet mometasone (ELOCON) 0.1 % cream Apply 1 application to affected area once daily. QELBREE 100 mg capsule, extended release Take 200 mg by mouth every morning. Take a total of 500 mg; two 200 mg and one 100 mg clotrimazole-betamethasone (LOTRISONE) cream Apply to affected area twice daily. APPLY TO AFFECTED AREA albuterol (PROVENTIL) 2.5 mg /3 mL (0.083 %) nebulizer solution Use 3 mL via nebulizer every 4 hours as needed for wheezing/shortness of breath. Use over 5-15minutes. albuterol HFA (VENTOLIN HFA) 90 mcg/actuation inhaler INHALE 2 PUFFS BY MOUTH DIRECTED EVERY 4 HOURS NEEDED FOR WHEEZING OR SHORTNESS OF BREATH CPAP Initiate Auto PAP @ 5-20 cm of water with humidification. Mask (per patient preference) optional chin strap (if indicated) , filters, tubing, humidifier and lifetime supplies. cetirizine (ZYRTEC) 10 mg tablet Take 1 tablet by mouth once daily as needed. methocarbamol (ROBAXIN) 750 mg tablet Take 1 tablet by mouth three times a day as needed. (Patient not taking: Reported on 12/18/2024) docusate sodium (COLACE) 100 mg capsule Take 1 capsule by mouth two times a day. (Patient not taking: Reported on 12/18/2024) ciprofloxacin-dexAMETHasone (CIPRODEX) 0.3-0.1 % otic suspension Use 4 Drops in both ears two times a day. (Patient not taking: Reported on 12/18/2024) Pbpvhakx-Iwnbkp-VF-Thonzonium (CORTISPORIN-TC) otic suspension Use 3 Drops in the ears four times daily. (Patient not taking: Reported on 12/18/2024) ibuprofen (MOTRIN) 600 mg tablet Take 600 mg by mouth once daily as needed for pain (pain). Takes 600-800mg dose (Patient not taking: Reported on 12/18/2024) acetaminophen (TYLENOL) 500 mg tablet Take 1,000 mg by mouth as needed for pain. (Patient not taking: Reported on 12/18/2024) melatonin 3 mg tablet TAKE 1 TABLET APPROXIMATELY 7PM NIGHTLY. fluticasone-salmeterol HFA (ADVAIR HFA) 115-21 mcg/actuation inhaler Inhale 2 Puffs as instructed twice daily. Rinse mouth after use. ipratropium-albuterol (DUONEB) 0.5 mg-3 mg(2.5 mg base)/3 mL nebu Inhale 3 mL as instructed every 6 hours as needed (wheezing). fluticasone (FLONASE) 50 mcg/actuation nasal spray Use 2 Sprays in each nostril once daily. No current facility-administered medications for this visit. ALLERGIES: ALLERGIES Allergen Reactions Acetaminophen-Codei* Rash Seasonal Allergies Unknown CATS, DOGS, COCKROACHES, MOLDS, TREES, GRASSES, WEEDS AND RAGWEED VERIFIED BY SKIN TESTING Darren [[place]* Other: See Comments irritable PAST MEDICAL HISTORY Diagnosis Date Abdominal pain Anxiety Asthma Depression VILLEGAS (dyspnea on exertion) HTN (hypertension) Mixed hyperlipidemia Obesity Primary cardiomyopathy (HCC) Sleep apnea Spinal stenosis PAST SURGICAL HISTORY Procedure Laterality Date COLONOSCOPY 06/15/2022 repeat in 1 year with MAC COLONOSCOPY FLX DX W/COLLJ SPEC WHEN PFRMD 08/21/2015 Colonoscopy with mac ESOPHAGOGASTRODUODENOSCOPY TRANSORAL DIAGNOSTIC 08/21/2015 EGD with mac PAST SURGICAL HISTORY OF fatty cyst removed from stomach PAST SURGICAL HISTORY OF wisdom teeth FAMILY HISTORY Problem Relation Age of Onset Heart Father Colon Cancer Father other (colitis) Father other (autism) Son GI issues/ear problems/adhd Social History Tobacco Use Smoking status: Never Smokeless tobacco: Former Types: Chew Quit date: 12/15/2023 Vaping Use Vaping status: Never Used Substance Use Topics Alcohol use: No Drug use: No Reviewed current medications, allergies, past medical history, surgical history, family history and social history today. REVIEW OF SYSTEMS Constitutional: (-) fever, (-) chills, (-) weight loss Ears/Nose/Mouth/Throat: (-) belching, (-) burping Neck: (+) left neck swelling/fullness, (-) neck pain Cardiovascular: (-) chest pain, (-) shortness of breath Respiratory: (-) cough, (-) wheeze Gastrointestinal: (+) abdominal discomfort, (+) heartburn, (+) constipation, (+) fecal leakage, (+) sensation of incomplete evacuation, (+) hematochezia, (-) vomiting, (-) melena, (-) narrow stools Hematologic/Lymphatic: (-) axillary lymphadenopathy HEALTH MAINTENANCE: Reviewed health maintenance issues today and recommended the following in detail. Hepatitis B Vaccine(1 of 3 - 19+ 3-dose series) Never done Colorectal Cancer Screening due on 06/15/2023 LAB REVIEWED: Labs Imaging - Carotid Ultrasound: No abnormalities VITALS: BP 118/80 Pulse 81 Temp 36.6 C (97.9 F) Wt 110.8 kg (244 lb 3.2 oz) SpO2 96% BMI 36.06 kg/m Last 4 Encounter Wt Readings: Date: Wt: 12/18/2024 110.8 kg (244 lb 3.2 oz) 07/17/2024 109.3 kg (241 lb) 05/15/2024 110.7 kg (244 lb) 04/17/2024 111.1 kg (244 lb 14.9 oz) PHYSICAL EXAMINATION: GENERAL: NAD, alert and oriented. SKIN: Unremarkable, no rash or skin lesions. HEAD: Normocephalic. NECK: Supple, no lymphadenopathy, normal thyroid, no carotid bruits. Palpable fullness approximately 2 cm in diameter noted around the angle of the left jaw. LUNGS: Clear to auscultation bilaterally, no wheezes/rhonchi/rales. HEART: Regular rate and rhythm, no murmurs. No ectopy. EXTREMITIES: Normal, no deformities, no skin discoloration, no edema. ABDOMEN: Soft, bowel sounds positive, no masses or organomegaly. ASSESSMENT AND PLAN 1. Mixed hyperlipidemia (E78.2) - Order non-fasting lipid panel. 2. Primary hypertension (I10) - Blood pressure today 118/80 mmHg. 3. 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 4. Gastroesophageal reflux disease without esophagitis (K21.9) 5. Abdominal discomfort (R10.9) - Inconsistent use of omeprazole; instructed patient to resume daily use. - Order CBC, CMP, and lipase to evaluate abdominal symptoms. - Refer to general surgery for endoscopic evaluation. 6. Change in bowel function (R19.8) - Order CBC, CMP, and lipase to evaluate abdominal symptoms. - Refer to general surgery for endoscopic evaluation. 7. Neck mass (R22.1) - Palpable fullness under the angle of the left jaw, approximately 2 cm in diameter. - Order ultrasound of the soft tissue of the neck. (See patient after visit summary for additional instructions to patient) Conor Pantoja MD Recording using Page[employer] software for draft documentation of the visit was discussed with the patient/authorized senior customer service representative; all questions welcomed and answered. Patient/authorized senior customer service representative agreed to proceed documented in this encounter [facility] 12-18-2024 Note HNO ID: [id number] Author: CONOR PANTOJA MD Service: ? Author Type: Physician Type: Progress Notes Filed: 12/18/2024 15:54 Note Text: Jaime Vega is a 44-year-old male presenting for evaluation of abdominal discomfort, bowel irregularities, and a palpable neck mass. HPI Abdominal Discomfort and Bowel Irregularities: - Abdominal discomfort described as inflamed and hot from epigastric to pelvic region. - Bowel irregularities with incomplete evacuation and urgency to defecate shortly after initial bowel movement. - Occasional stool leakage without active defecation effort. - Hematochezia noted; denies melena. - Occasional nausea and sour belching; denies emesis. - Inconsistent use of omeprazole. - Denies fever, chills, or weight loss. - Jaime is overdue for colonoscopy; has not completed recommended blood work. Neck Mass: - Palpable fullness under the left jaw, approximately 2 cm in diameter. - Mass has been present for a few months, with intermittent visibility and sensation. - No associated pain or changes in size or shape. - Denies other lumps or bumps in the axillary region. Post-Operative Status: - Jaime underwent back surgery in May. - Discontinued prescribed medication in mid-June due to improvement in pain. - Has not taken pain medication since surgery. MEDICATIONS: Current Outpatient Medications Medication Sig amLODIPine (NORVASC) 5 mg tablet Take 1 tablet by mouth once daily. omeprazole (PRILOSEC) 40 mg capsule Take 1 capsule by mouth once daily. (Patient taking differently: Take 40 mg by mouth once daily. States needs it but does not take every day) benzonatate (TESSALON PERLE) 100 mg capsule Take 1 capsule by mouth three times a day as needed. mupirocin (BACTROBAN) 2% oint Use 0.5 g in the nose two times a day. guanFACINE (TENEX) 2 mg tablet mometasone (ELOCON) 0.1 % cream Apply 1 application to affected area once daily. QELBREE 100 mg capsule, extended release Take 200 mg by mouth every morning. Take a total of 500 mg; two 200 mg and one 100 mg clotrimazole-betamethasone (LOTRISONE) cream Apply to affected area twice daily. APPLY TO AFFECTED AREA albuterol (PROVENTIL) 2.5 mg /3 mL (0.083 %) nebulizer solution Use 3 mL via nebulizer every 4 hours as needed for wheezing/shortness of breath. Use over 5-15minutes. albuterol HFA (VENTOLIN HFA) 90 mcg/actuation inhaler INHALE 2 PUFFS BY MOUTH DIRECTED EVERY 4 HOURS NEEDED FOR WHEEZING OR SHORTNESS OF BREATH CPAP Initiate Auto PAP @ 5-20 cm of water with humidification. Mask (per patient preference) optional chin strap (if indicated) , filters, tubing, humidifier and lifetime supplies. cetirizine (ZYRTEC) 10 mg tablet Take 1 tablet by mouth once daily as needed. methocarbamol (ROBAXIN) 750 mg tablet Take 1 tablet by mouth three times a day as needed. (Patient not taking: Reported on 12/18/2024) docusate sodium (COLACE) 100 mg capsule Take 1 capsule by mouth two times a day. (Patient not taking: Reported on 12/18/2024) ciprofloxacin-dexAMETHasone (CIPRODEX) 0.3-0.1 % otic suspension Use 4 Drops in both ears two times a day. (Patient not taking: Reported on 12/18/2024) Bxrxxjwq-Wsdcgr-RQ-Thonzonium (CORTISPORIN-TC) otic suspension Use 3 Drops in the ears four times daily. (Patient not taking: Reported on 12/18/2024) ibuprofen (MOTRIN) 600 mg tablet Take 600 mg by mouth once daily as needed for pain (pain). Takes 600-800mg dose (Patient not taking: Reported on 12/18/2024) acetaminophen (TYLENOL) 500 mg tablet Take 1,000 mg by mouth as needed for pain. (Patient not taking: Reported on 12/18/2024) melatonin 3 mg tablet TAKE 1 TABLET APPROXIMATELY 7PM NIGHTLY. fluticasone-salmeterol HFA (ADVAIR HFA) 115-21 mcg/actuation inhaler Inhale 2 Puffs as instructed twice daily. Rinse mouth after use. ipratropium-albuterol (DUONEB) 0.5 mg-3 mg(2.5 mg base)/3 mL nebu Inhale 3 mL as instructed every 6 hours as needed (wheezing). fluticasone (FLONASE) 50 mcg/actuation nasal spray Use 2 Sprays in each nostril once daily. No current facility-administered medications for this visit. ALLERGIES: ALLERGIES Allergen Reactions Acetaminophen-Codei* Rash Seasonal Allergies Unknown CATS, DOGS, COCKROACHES, MOLDS, TREES, GRASSES, WEEDS AND RAGWEED VERIFIED BY SKIN TESTING Singulair [[place]* Other: See Comments irritable PAST MEDICAL HISTORY Diagnosis Date Abdominal pain Anxiety Asthma Depression VILLEGAS (dyspnea on exertion) HTN (hypertension) Mixed hyperlipidemia Obesity Primary cardiomyopathy (HCC) Sleep apnea Spinal stenosis PAST SURGICAL HISTORY Procedure Laterality Date COLONOSCOPY 06/15/2022 repeat in 1 year with MAC COLONOSCOPY FLX DX W/COLLJ SPEC WHEN PFRMD 08/21/2015 Colonoscopy with mac ESOPHAGOGASTRODUODENOSCOPY TRANSORAL DIAGNOSTIC 08/21/2015 EGD with mac PAST SURGICAL HISTORY OF fatty cyst removed from stomach PAST SURGICAL HISTORY OF wisdom teeth (more content not included)... [facility] 08-24-2024 Telephone encounter Note The patient has been identified by name and date of : Yes Caregiver verified no other encounters exist for this prescription request: Yes Caregiver confirmed with patient/requestor that no other refills are due, in the near future, with this provider at this time: Yes The last office visit in the department: 07/17/2024 Does the patient have a future office visit with this provider/department: No Visit date not found Requested Prescriptions Pending Prescriptions Disp Refills omeprazole (PRILOSEC) 40 mg capsule 30 capsule 5 Sig: Take 1 capsule by mouth once daily. Carmen Meraz RN August 24, 2024 6:17 PM [facility] 08-24-2024 Miscellaneous Notes The patient has been identified by name and date of : Yes Caregiver verified no other encounters exist for this prescription request: Yes Caregiver confirmed with patient/requestor that no other refills are due, in the near future, with this provider at this time: Yes The last office visit in the department: 07/17/2024 Does the patient have a future office visit with this provider/department: No Visit date not found Requested Prescriptions Pending Prescriptions Disp Refills omeprazole (PRILOSEC) 40 mg capsule 30 capsule 5 Sig: Take 1 capsule by mouth once daily. Carmen Meraz RN August 24, 2024 6:17 PM documented in this encounter [facility] 07-21-2024 Telephone encounter Note Left additional message for patient advised him to call if he isn't getting better. [facility] 07-21-2024 Miscellaneous Notes Left additional message for patient advised him to call if he isn't getting better. Called and left a voicemail for the Patient to call back and ask for a nurse to receive the providers message. Carmen Meraz RN He has covid. He is still in the five day window where we can use an antiviral. He would have to hold his guanfacine however for a week while on med. Let me know if wants to try. Call if worsens at all or becomes more short of breath. documented in this encounter [facility] 07-18-2024 Telephone encounter Note Called and left a voicemail for the Patient to call back and ask for a nurse to receive the providers message. Carmen Meraz RN [facility] 07-18-2024 Telephone encounter Note He has covid. He is still in the five day window where we can use an antiviral. He would have to hold his guanfacine however for a week while on med. Let me know if wants to try. Call if worsens at all or becomes more short of breath. [facility] 07-17-2024 History of Present illness Narrative Program_ID:[id number] Access Code: [email or web address] URL: [email or web address] Date: 07-17-2024 Prepared By: Janice Anne Program Notes Exercises - Supine Sciatic Nerve [place] - 1 x daily - 7 x weekly - 4 sets - 10 reps - Supine Transversus Abdominis Bracing - Hands on Stomach - 1 x daily - 7 x weekly - 4 sets - 10 reps - Seated Piriformis Stretch - 1 x daily - 7 x weekly - 1 sets - 3 reps - Seated Sciatic Tensioner - 1 x daily - 7 x weekly - 2 sets - 10 reps - Seated Hamstring Stretch - 1 x daily - 7 x weekly - 1 sets - 3 reps Episode Visit Count: 2 Therapist That Will Accept/Oversee The Plan Of Care: Mak Morales PT Start of Care Date: 06/29/24 Onset Date: 06/29/22 Plan of Care Certification Date: 06/29/24 Next Certification Due Date: 08/10/24 Patient Identified by Name and Date of : Yes REHABILITATION AND SPORTS THERAPY PHYSICAL THERAPY TREATMENT NOTE ASSESSMENT: Jaime Vega tolerated the session with fatigue and expected muscle soreness. He demonstrated difficulty with piriformis tightness on R. The patient will continue to benefit from ongoing skilled physical therapy to progress toward set goals. PLAN FOR NEXT VISIT: Asses response to seated exercsies SUBJECTIVE: Pt reports that his back is sore from trying to improve his sitting posture. No pain medicine within the last 4-5 weeks. Pt to RTW tomorrow with restrictions from Dr. Brown. Pain: Pain Pain Location: Low Back/Lumbar Spine - Right Description: Sore Post Treatment Pain Post Treatment Pain Level: No Change Post Treatment Pain Location: Low Back/Lumbar Spine - Right OBJECTIVE MEASURES WITH LEVEL OF FUNCTION: Improved postural awareness TREATMENT: Therapeutic Exercise: 1: *Seated piriformis stretch 3x30 seconds RLE 2: *Seated Sciatic nerve glide 2x10 for functional use at work 3: *Seated HS stretch 3x30 seconds B 4: *Seated TA activation x10 with 2 second holds 5: Education on use of towel roll behind back with sitting. Skilled Intervention: Patient was educated in proper exercise technique and purpose for exercises. Reviewed and educated patient on additions/changes for home exercise program as above (*). Skilled judgment was used in selection of appropriate interventions. Provided written instruction for home exercise program to facilitate proper performance and compliance. Correct performance of therapeutic exercises was facilitated with verbal and visual cuing. Billing Therapeutic Exercise Treatment Minutes: 40 Skilled Treatment Time Minutes (timed and untimed codes): 40 Total Session Time (minutes): 40 Session Start Time : 1630 Session Stop Time : 1710 LIS Bradford PT documented in this encounter [facility] 07-17-2024 Note HNO ID: [id number] Author: MAK MORALES PT Service: ? Author Type: Physical Therapist Type: Progress Notes Filed: 07/18/2024 07:13 Note Text: Episode Visit Count: 2 Therapist That Will Accept/Oversee The Plan Of Care: Mak Morales PT Start of Care Date: 06/29/24 Onset Date: 06/29/22 Plan of Care Certification Date: 06/29/24 Next Certification Due Date: 08/10/24 Patient Identified by Name and Date of : Yes REHABILITATION AND SPORTS THERAPY PHYSICAL THERAPY TREATMENT NOTE ASSESSMENT: Jaime Lomax Gary tolerated the session with fatigue and expected muscle soreness. He demonstrated difficulty with piriformis tightness on R. The patient will continue to benefit from ongoing skilled physical therapy to progress toward set goals. PLAN FOR NEXT VISIT: Asses response to seated exercsies SUBJECTIVE: Pt reports that his back is sore from trying to improve his sitting posture. No pain medicine within the last 4-5 weeks. Pt to RTW tomorrow with restrictions from Dr. Brown. Pain: Pain Pain Location: Low Back/Lumbar Spine - Right Description: Sore Post Treatment Pain Post Treatment Pain Level: No Change Post Treatment Pain Location: Low Back/Lumbar Spine - Right OBJECTIVE MEASURES WITH LEVEL OF FUNCTION: Improved postural awareness TREATMENT: Therapeutic Exercise: 1: *Seated piriformis stretch 3x30 seconds RLE 2: *Seated Sciatic nerve glide 2x10 for functional use at work 3: *Seated HS stretch 3x30 seconds B 4: *Seated TA activation x10 with 2 second holds 5: Education on use of towel roll behind back with sitting. Skilled Intervention: Patient was educated in proper exercise technique and purpose for exercises. Reviewed and educated patient on additions/changes for home exercise program as above (*). Skilled judgment was used in selection of appropriate interventions. Provided written instruction for home exercise program to facilitate proper performance and compliance. Correct performance of therapeutic exercises was facilitated with verbal and visual cuing. Billing Therapeutic Exercise Treatment Minutes: 40 Skilled Treatment Time Minutes (timed and untimed codes): 40 Total Session Time (minutes): 40 Session Start Time : 1630 Session Stop Time : 1710 LIS Bradford, PT [facility] 07-17-2024 History of Present illness Narrative Images from the original note were not included. SPINE SURGERY FOLLOW UP This is a virtual visit using Andela[employer] Video Visit. It required patient-provider interaction for the medical decision making as documented below. I have communicated my name and active licensure. The patient's identity and physical location were verified at the time of this visit. Either the patient or their legal senior customer service representative has been informed of the risks and benefits of -- and alternatives to -- treatment through a remote evaluation and consents to proceed with the evaluation remotely. SERVICE DATE: 07/17/2024 SURGERY DATE: 06/06/2024 Right L4-5 microdiscectomy Jaime Vega is seen for 1 month post operative follow up. Overall the patient is doing very well. He reports improvement compared to preop. Intermittent leg pain but resolved spontaneously. ANTIPLATELET OR ANTICOAGULATION STATUS: No Patient Entered Questionnaires 05/24/2023 04/15/2024 06/29/2024 Spine Questions Pain Location: Leg Lower back Lower back Pain Duration: 6 months - 1 year 1 to 5 years Pain over last 6 months: Every day or nearly every day in the past 6 months Every day or nearly every day in the past 6 months Symptoms from neck/cervical spine: Yes No Employment Status: Working now Working now Involved in law suit/legal claim: No 05/24/2023 Neck Questionnaires Benzel Modified DIANE Score 16 (Mild Myelopathy Symptoms) PROMIS Score Percentiles 05/24/2023 04/15/2024 06/29/2024 Physical Health Physical Function Percentile 12 14 Sleep Percentile 12 12 Fatigue Percentile 8 8 Pain Interference Percentile 5 1 24* 05/24/2023 04/15/2024 PROMIS SOCIAL ROLE SCORE Social Role Satisfaction Percentile 7 7 11/06/2022 02/16/2023 04/15/2024 PROMIS Global Health Scale Physical Health Percentile 10 7 4 Mental Health Percentile 5 5 13 Patient-reported Percentiles provide an indication of how the patient's score ranks in relation to the general population. Higher percentile rankings indicate better function/quality of life. 50th percentile is the average of the general population and indicates half of respondents had a worse score. Depression Screenin05/12/2020 04/15/2024 PHQ-9 Score 10 11 05/12/2020 04/15/2024 PHQ-9 Self-harm Question Question 9 Not at all Not at all PHQ-9 Self-Harm (Item 9) response options: 0 Not at all 1 Several days 2 More than half the days 3 Nearly every day PHQ-9 Levels: 0-4 No to mild depression 5-9 Mild depression 10-14 Moderate depression 15-19 Moderately severe depression 20-27 Severe depression PHYSICAL EXAM: There were no vitals taken for this visit. Limited due to virtual visit DATA REVIEW No additional images reviewed today ASSESSMENT/PLAN (M54.16) Lumbar radiculopathy (primary encounter diagnosis) Patient can go back to work on July 18 with 20 pound weight restriction and no excessive bending. 1. No orders placed today 2. Follow up: 6 weeks Imaging Ordered: None I spent 15 minutes discussing with the patient his/her symptoms and future plans I have communicated my name and active licensure. The patient's identity and physical location were verified at the time of this visit. Either the patient or their legal senior customer service representative has been informed of the risks and benefits of -- and alternatives to -- treatment through a remote evaluation and consents to proceed with the evaluation remotely. The documentation for this note was completed by Alyssa Costello acting as scribe for Silas Brown MD. July 17, 2024 4:00 PM. SIGNATURE: Silas Brown MD PATIENT NAME: Jaime Vega DATE: July 17, 2024 TIME: 4:00 PM PAGER: documented in this encounter [facility] 07-17-2024 Note HNO ID: [id number] Author: SILAS BROWN MD Service: ? Author Type: Physician Type: Progress Notes Filed: 07/17/2024 19:10 Note Text: SPINE SURGERY FOLLOW UP This is a virtual visit using Andelaom Video Visit. It required patient-provider interaction for the medical decision making as documented below. I have communicated my name and active licensure. The patient's identity and physical location were verified at the time of this visit. Either the patient or their legal senior customer service representative has been informed of the risks and benefits of -- and alternatives to -- treatment through a remote evaluation and consents to proceed with the evaluation remotely. SERVICE DATE: 07/17/2024 SURGERY DATE: 06/06/2024 Right L4-5 microdiscectomy Jaime Vega is seen for 1 month post operative follow up. Overall the patient is doing very well. He reports improvement compared to preop. Intermittent leg pain but resolved spontaneously. ANTIPLATELET OR ANTICOAGULATION STATUS: No Patient Entered Questionnaires 05/24/2023 04/15/2024 06/29/2024 Spine Questions Pain Location: Leg Lower back Lower back Pain Duration: 6 months - 1 year 1 to 5 years Pain over last 6 months: Every day or nearly every day in the past 6 months Every day or nearly every day in the past 6 months Symptoms from neck/cervical spine: Yes No Employment Status: Working now Working now Involved in law suit/legal claim: No 05/24/2023 Neck Questionnaires Benzel Modified DIANE Score 16 (Mild Myelopathy Symptoms) PROMIS Score Percentiles 05/24/2023 04/15/2024 06/29/2024 Physical Health Physical Function Percentile 12 14 Sleep Percentile 12 12 Fatigue Percentile 8 8 Pain Interference Percentile 5 1 24* 05/24/2023 04/15/2024 PROMIS SOCIAL ROLE SCORE Social Role Satisfaction Percentile 7 7 11/06/2022 02/16/2023 04/15/2024 PROMIS Global Health Scale Physical Health Percentile 10 7 4 Mental Health Percentile 5 5 13 Patient-reported Percentiles provide an indication of how the patient's score ranks in relation to the general population. Higher percentile rankings indicate better function/quality of life. 50th percentile is the average of the general population and indicates half of respondents had a worse score. Depression Screenin05/12/2020 04/15/2024 PHQ-9 Score 10 11 05/12/2020 04/15/2024 PHQ-9 Self-harm Question Question 9 Not at all Not at all PHQ-9 Self-Harm (Item 9) response options: 0 Not at all 1 Several days 2 More than half the days 3 Nearly every day PHQ-9 Levels: 0-4 No to mild depression 5-9 Mild depression 10-14 Moderate depression 15-19 Moderately severe depression 20-27 Severe depression PHYSICAL EXAM: There were no vitals taken for this visit. Limited due to virtual visit DATA REVIEW No additional images reviewed today ASSESSMENT/PLAN (M54.16) Lumbar radiculopathy (primary encounter diagnosis) Patient can go back to work on July 18 with 20 pound weight restriction and no excessive bending. 1. No orders placed today 2. Follow up: 6 weeks Imaging Ordered: None I spent 15 minutes discussing with the patient his/her symptoms and future plans I have communicated my name and active licensure. The patient's identity and physical location were verified at the time of this visit. Either the patient or their legal senior customer service representative has been informed of the risks and benefits of -- and alternatives to -- treatment through a remote evaluation and consents to proceed with the evaluation remotely. The documentation for this note was completed by Alyssa Costello acting as scribe for Silas Brown MD. July 17, 2024 4:00 PM. SIGNATURE: Silas Brown MD PATIENT NAME: Jaime Vega DATE: July 17, 2024 TIME: 4:00 PM PAGER: [facility] 07-17-2024 History of Present illness Narrative Radiology Service Progress Note PATIENT NAME: Jaime Vega DATE OF SERVICE: July 17, 2024 TIME: 3:34 PM PATIENT IDENTITY VERIFICATION COMPLETED USING TWO (2) IDENTIFIERS: Name and Date of confirmed by patient verbally. FALL SCREENING: Has the patient had 2 falls in the last year or 1 fall with injury or currently using an Ambulatory Assistive Device (Walker, Cane, Wheelchair, Crutches, etc.)? No PATIENT GENDER DATA: Assigned male at PATIENT RELEVANT IMPLANT DATA REVIEWED: Not Applicable PATIENT PRESENTS WITH AN IMPLANTABLE OR ATTACHED REAL TIME ANALYST: No RADIOLOGY DEPARTMENT: General X-ray: Exam(s) Completed: Chest X-Ray PERIPHERAL IV DATA: Not applicable SIGNED BY: RT Kilo(Nahid) July 17, 2024 3:34 PM documented in this encounter [facility] 07-17-2024 Note HNO ID: [id number] Author: MIRANDA METZGER RT(R) Service: Radiology Author Type: Technologist Type: Progress Notes Filed: 07/17/2024 15:41 Note Text: Radiology Service Progress Note PATIENT NAME: Jaime Vega DATE OF SERVICE: July 17, 2024 TIME: 3:34 PM PATIENT IDENTITY VERIFICATION COMPLETED USING TWO (2) IDENTIFIERS: Name and Date of confirmed by patient verbally. FALL SCREENING: Has the patient had 2 falls in the last year or 1 fall with injury or currently using an Ambulatory Assistive Device (Walker, Cane, Wheelchair, Crutches, etc.)? No PATIENT GENDER DATA: Assigned male at PATIENT RELEVANT IMPLANT DATA REVIEWED: Not Applicable PATIENT PRESENTS WITH AN IMPLANTABLE OR ATTACHED REAL TIME ANALYST: No RADIOLOGY DEPARTMENT: General X-ray: Exam(s) Completed: Chest X-Ray PERIPHERAL IV DATA: Not applicable SIGNED BY: RT Kilo(Nahid) July 17, 2024 3:34 PM [facility] 07-17-2024 Note SARS-COV-2 (AGENT OF COVID-19) RNA: Detected INFLUENZA A RNA: Not detected INFLUENZA B RNA: Not detected RESPIRATORY SYNCYTIAL VIRUS (RSV) RNA: Not detected [facility] Comment on above: Performed By: #### [id number] ####[facility] [id number] [address] OF [facility] 07-17-2024 Note HNO ID: [id number] Author: CONOR PANTOJA MD Service: ? Author Type: Physician Type: Progress Notes Filed: 07/17/2024 15:28 Note Text: Patient presents with: 6 Month Exam HPI: Patient presents today for office visit for routine follow up. Has been ill since Wednesday evening. Started with the sensation of being very hot. Highest temp was 100.3. Progressed into Wednesday. Complains today of nasal congestion and dry cough. No wheezing. Ears are muffled. Refers to lymph node on left side of neck being enlarged. Causing his left side of his far and ear feeling hot. No nausea or vomiting or diarrhea. Has not tried anything for illness other than tylenol. Had to use his albuterol prn. HTN: Does not monitor BP Denies chest pain Some shortness of breath with exertion Denies headaches and dizziness Denies palpitations and syncope Denies edema GERD: Symptoms controlled No heartburn No GI complaints Denies any bloody or black stool Follows with Cardiology. Had Laminectomy discectomy on 06/06/[address] [facility]. Now doing PT. Nerve pain is gone. Will occasionally get some shooting pains just above and below his right knee. Better than it was pre-operatively. Denies any numbness or tingling. Follow up scheduled for today. Not back to work yet. Had lumbar laminectomy. MEDICATIONS: Current Outpatient Medications Medication Sig mupirocin (BACTROBAN) 2% oint Use 0.5 g in the nose two times a day. methocarbamol (ROBAXIN) 750 mg tablet Take 1 tablet by mouth three times a day as needed. docusate sodium (COLACE) 100 mg capsule Take 1 capsule by mouth two times a day. guanFACINE (TENEX) 2 mg tablet omeprazole (PRILOSEC) 40 mg capsule Take 1 capsule by mouth once daily. mometasone (ELOCON) 0.1 % cream Apply 1 application to affected area once daily. amLODIPine (NORVASC) 5 mg tablet Take 1 tablet by mouth once daily. ciprofloxacin-dexAMETHasone (CIPRODEX) 0.3-0.1 % otic suspension Use 4 Drops in both ears two times a day. Rkzcevpn-Zmtjlu-JM-Thonzonium (CORTISPORIN-TC) otic suspension Use 3 Drops in the ears four times daily. ibuprofen (MOTRIN) 600 mg tablet Take 600 mg by mouth once daily as needed for pain (pain). Takes 600-800mg dose acetaminophen (TYLENOL) 500 mg tablet Take 1,000 mg by mouth as needed for pain. QELBREE 100 mg capsule, extended release Take 200 mg by mouth every morning. Take a total of 500 mg; two 200 mg and one 100 mg melatonin 3 mg tablet TAKE 1 TABLET APPROXIMATELY 7PM NIGHTLY. clotrimazole-betamethasone (LOTRISONE) cream Apply to affected area twice daily. APPLY TO AFFECTED AREA fluticasone-salmeterol HFA (ADVAIR HFA) 115-21 mcg/actuation inhaler Inhale 2 Puffs as instructed twice daily. Rinse mouth after use. albuterol (PROVENTIL) 2.5 mg /3 mL (0.083 %) nebulizer solution Use 3 mL via nebulizer every 4 hours as needed for wheezing/shortness of breath. Use over 5-15minutes. ipratropium-albuterol (DUONEB) 0.5 mg-3 mg(2.5 mg base)/3 mL nebu Inhale 3 mL as instructed every 6 hours as needed (wheezing). albuterol HFA (VENTOLIN HFA) 90 mcg/actuation inhaler INHALE 2 PUFFS BY MOUTH DIRECTED EVERY 4 HOURS NEEDED FOR WHEEZING OR SHORTNESS OF BREATH CPAP Initiate Auto PAP @ 5-20 cm of water with humidification. Mask (per patient preference) optional chin strap (if indicated) , filters, tubing, humidifier and lifetime supplies. fluticasone (FLONASE) 50 mcg/actuation nasal spray Use 2 Sprays in each nostril once daily. cetirizine (ZYRTEC) 10 mg tablet Take 1 tablet by mouth once daily as needed. No current facility-administered medications for this visit. ALLERGIES: ALLERGIES Allergen Reactions Acetaminophen-Codei* Rash Seasonal Allergies Unknown CATS, DOGS, COCKROACHES, MOLDS, TREES, GRASSES, WEEDS AND RAGWEED VERIFIED BY SKIN TESTING Darren [[place]* Other: See Comments irritable PAST MEDICAL HISTORY Diagnosis Date Abdominal pain Anxiety Asthma Depression VILLEGAS (dyspnea on exertion) HTN (hypertension) Mixed hyperlipidemia Obesity Primary cardiomyopathy (HCC) Sleep apnea Spinal stenosis PAST SURGICAL HISTORY Procedure Laterality Date COLONOSCOPY 06/15/2022 repeat in 1 year with MAC COLONOSCOPY FLX DX W/COLLJ SPEC WHEN PFRMD 08/21/2015 Colonoscopy with mac ESOPHAGOGASTRODUODENOSCOPY TRANSORAL DIAGNOSTIC 08/21/2015 EGD with mac PAST SURGICAL HISTORY OF fatty cyst removed from stomach PAST SURGICAL HISTORY OF wisdom teeth FAMILY HISTORY Problem Relation Age of Onset Heart Father Colon Cancer Father other (colitis) Father other (autism) Son GI issues/ear problems/adhd Social History Tobacco Use Smoking status: Never Smokeless tobacco: Former Types: Chew Quit date: 12/15/2023 Vaping Use Vaping status: Never Used Substance Use Topics Alcohol use: No Drug use: No Reviewed current medications, allergies, past medical history, surgical history, (more content not included)... [facility] 07-17-2024 History of Present illness Narrative Patient presents with: 6 Month Exam HPI: Patient presents today for office visit for routine follow up. Has been ill since Wednesday evening. Started with the sensation of being very hot. Highest temp was 100.3. Progressed into Wednesday. Complains today of nasal congestion and dry cough. No wheezing. Ears are muffled. Refers to lymph node on left side of neck being enlarged. Causing his left side of his far and ear feeling hot. No nausea or vomiting or diarrhea. Has not tried anything for illness other than tylenol. Had to use his albuterol prn. HTN: Does not monitor BP Denies chest pain Some shortness of breath with exertion Denies headaches and dizziness Denies palpitations and syncope Denies edema GERD: Symptoms controlled No heartburn No GI complaints Denies any bloody or black stool Follows with Cardiology. Had Laminectomy discectomy on 06/06/[address] [facility]. Now doing PT. Nerve pain is gone. Will occasionally get some shooting pains just above and below his right knee. Better than it was pre-operatively. Denies any numbness or tingling. Follow up scheduled for today. Not back to work yet. Had lumbar laminectomy. MEDICATIONS: Current Outpatient Medications Medication Sig mupirocin (BACTROBAN) 2% oint Use 0.5 g in the nose two times a day. methocarbamol (ROBAXIN) 750 mg tablet Take 1 tablet by mouth three times a day as needed. docusate sodium (COLACE) 100 mg capsule Take 1 capsule by mouth two times a day. guanFACINE (TENEX) 2 mg tablet omeprazole (PRILOSEC) 40 mg capsule Take 1 capsule by mouth once daily. mometasone (ELOCON) 0.1 % cream Apply 1 application to affected area once daily. amLODIPine (NORVASC) 5 mg tablet Take 1 tablet by mouth once daily. ciprofloxacin-dexAMETHasone (CIPRODEX) 0.3-0.1 % otic suspension Use 4 Drops in both ears two times a day. Ppnvrhay-Lrxfuh-QG-Thonzonium (CORTISPORIN-TC) otic suspension Use 3 Drops in the ears four times daily. ibuprofen (MOTRIN) 600 mg tablet Take 600 mg by mouth once daily as needed for pain (pain). Takes 600-800mg dose acetaminophen (TYLENOL) 500 mg tablet Take 1,000 mg by mouth as needed for pain. QELBREE 100 mg capsule, extended release Take 200 mg by mouth every morning. Take a total of 500 mg; two 200 mg and one 100 mg melatonin 3 mg tablet TAKE 1 TABLET APPROXIMATELY 7PM NIGHTLY. clotrimazole-betamethasone (LOTRISONE) cream Apply to affected area twice daily. APPLY TO AFFECTED AREA fluticasone-salmeterol HFA (ADVAIR HFA) 115-21 mcg/actuation inhaler Inhale 2 Puffs as instructed twice daily. Rinse mouth after use. albuterol (PROVENTIL) 2.5 mg /3 mL (0.083 %) nebulizer solution Use 3 mL via nebulizer every 4 hours as needed for wheezing/shortness of breath. Use over 5-15minutes. ipratropium-albuterol (DUONEB) 0.5 mg-3 mg(2.5 mg base)/3 mL nebu Inhale 3 mL as instructed every 6 hours as needed (wheezing). albuterol HFA (VENTOLIN HFA) 90 mcg/actuation inhaler INHALE 2 PUFFS BY MOUTH DIRECTED EVERY 4 HOURS NEEDED FOR WHEEZING OR SHORTNESS OF BREATH CPAP Initiate Auto PAP @ 5-20 cm of water with humidification. Mask (per patient preference) optional chin strap (if indicated) , filters, tubing, humidifier and lifetime supplies. fluticasone (FLONASE) 50 mcg/actuation nasal spray Use 2 Sprays in each nostril once daily. cetirizine (ZYRTEC) 10 mg tablet Take 1 tablet by mouth once daily as needed. No current facility-administered medications for this visit. ALLERGIES: ALLERGIES Allergen Reactions Acetaminophen-Codei* Rash Seasonal Allergies Unknown CATS, DOGS, COCKROACHES, MOLDS, TREES, GRASSES, WEEDS AND RAGWEED VERIFIED BY SKIN TESTING Darren [[place]* Other: See Comments irritable PAST MEDICAL HISTORY Diagnosis Date Abdominal pain Anxiety Asthma Depression VILLEGAS (dyspnea on exertion) HTN (hypertension) Mixed hyperlipidemia Obesity Primary cardiomyopathy (HCC) Sleep apnea Spinal stenosis PAST SURGICAL HISTORY Procedure Laterality Date COLONOSCOPY 06/15/2022 repeat in 1 year with MAC COLONOSCOPY FLX DX W/COLLJ SPEC WHEN PFRMD 08/21/2015 Colonoscopy with mac ESOPHAGOGASTRODUODENOSCOPY TRANSORAL DIAGNOSTIC 08/21/2015 EGD with mac PAST SURGICAL HISTORY OF fatty cyst removed from stomach PAST SURGICAL HISTORY OF wisdom teeth FAMILY HISTORY Problem Relation Age of Onset Heart Father Colon Cancer Father other (colitis) Father other (autism) Son GI issues/ear problems/adhd Social History Tobacco Use Smoking status: Never Smokeless tobacco: Former Types: Chew Quit date: 12/15/2023 Vaping Use Vaping status: Never Used Substance Use Topics Alcohol use: No Drug use: No Reviewed current medications, allergies, past medical history, surgical history, family history and social history today. REVIEW OF SYSTEMS All other reviewed and negative other than HPI. HEALTH MAINTENANCE: Reviewed health maintenance issues today and recommended the following in detail. BP Controlled (<130/80) Never done Colorectal Cancer Screening -was ordered Has had some constipation post surgery. Has noted when he has to force his bowels, he feels a little tight with his breathing. Red flags for re-assessment reviewed with patient in detail. No chest pain with exertion. VITALS: BP 114/62 Pulse 91 Temp 36.7 C (98 F) Ht 175.3 cm (5' 9) Wt 109.3 kg (241 lb) SpO2 97% BMI 35.59 kg/m Last 4 Encounter Wt Readings: Date: Wt: 07/17/2024 109.3 kg (241 lb) 05/15/2024 110.7 kg (244 lb) 04/17/2024 111.1 kg (244 lb 14.9 oz) 02/17/2024 108.5 kg (239 lb 3.2 oz) PHYSICAL EXAMINATION: General appearance: Well appearing, alert, in no acute distress, well-hydrated, well nourished. Skin: incision is well healing. Head: Normocephalic, no masses, lesions, tenderness or abnormalities Eyes: Anicteric sclera. Pupils are equally round and reactive to light. Extraocular movements are intact. Ears: External ears normal, canals clear Nose/Sinuses: Nares normal, septum midline, mucosa normal, no drainage or sinus tenderness Oropharynx: Lips, mucosa, and tongue normal, teeth and gums normal, oropharynx normal Neck: Supple, ? [place], will follow. Red flags for re-assessment reviewed with patient in detail. Lungs: Lungs clear to auscultation. No wheezing, rhonchi, rales Heart: RRR without murmur, gallop, or rubs. No ectopy Abdomen: Normal abdominal exam, Abdomen soft, non-tender. Bowel sounds normal. No masses, organomegaly Extremities: No deformities, edema, skin discoloration, clubbing or cyanosis. Good capillary refill. ASSESSMENT/PLAN: 1. Primary hypertension - ICD9: 401.9, ICD10: I10 (primary diagnosis) - Controlled - Continue current medications 2. Mixed hyperlipidemia - ICD9: 272.2, ICD10: E78.2 - Controlled - Continue current medications Check lipid 3. Enlarged thoracic aorta (HCC) - ICD9: 447.8, ICD10: I77.89 - per cardiology. 4. VILLEGAS (dyspnea on exertion) - ICD9: 786.09, ICD10: R06.09 - stable. 5. Anxiety and depression - ICD9: 300.00, 311, ICD10: F41.9, F32.A - stable. 6. Obesity, Class II, BMI 35-39.9 - ICD9: 278.00, ICD10: E66.812 Watch diet. 7. Uri Tessalon. Xray of chest Covid, flu, rsv swab. Discussed risks and benefits of new medication with the patient. Advised them to call if any side effects or questions. Red flags for re-assessment reviewed with patient in detail. Call if symptoms worsen at all or if not better in one to two weeks Reviewed diagnosis and treatment options in detail. Questions were answered. Patient expressed understanding of treatment plan. Conor Pantoja MD documented in this encounter [facility] 06-29-2024 History of Present illness Narrative Program_ID:[id number] Access Code: [email or web address] URL: [email or web address] Date: 06-29-2024 Prepared By: Janice Anne Program Notes Exercises - Supine Sciatic Nerve [place] - 1 x daily - 7 x weekly - 4 sets - 10 reps - Supine Lower Trunk Rotation - 1 x daily - 7 x weekly - 4 sets - 10 reps - Supine Lower Trunk Rotation - 1 x daily - 7 x weekly - 4 sets - 10 reps - Supine Transversus Abdominis Bracing - Hands on Stomach - 1 x daily - 7 x weekly - 4 sets - 10 reps Program_ID:[id number] Access Code: [email or web address] URL: [email or web address] Date: 06-29-2024 Prepared By: Janice Anne Program Notes Exercises - Supine Sciatic Nerve [place] - 1 x daily - 7 x weekly - 4 sets - 10 reps - Supine Lower Trunk Rotation - 1 x daily - 7 x weekly - 4 sets - 10 reps - Supine Lower Trunk Rotation - 1 x daily - 7 x weekly - 4 sets - 10 reps - Supine Transversus Abdominis Bracing - Hands on Stomach - 1 x daily - 7 x weekly - 4 sets - 10 reps Images from the original note were not included. Episode Visit Count: 1 Therapist That Will Accept/Oversee The Plan Of Care: Mak Morales PT Start of Care Date: 06/29/24 Onset Date: 06/29/22 Plan of Care Certification Date: 06/29/24 Next Certification Due Date: 08/10/24 Patient Identified by Name and Date of : Yes REHABILITATION AND SPORTS THERAPY PHYSICAL THERAPY EVALUATION PLAN OF CARE: Assessment: Jaime Vega presents with diagnosis of S/P microdiscectomy on 06/06/24 that interferes with lifting, bending, twisting, working . The patient presents with impairments in independence in exercise, overall function, range of motion, strength, and tissue tenderness. PROMIS (Patient-Reported Outcomes Measurement Information System) scores were reviewed and identified as a rehabilitation concern. Prognosis for therapy is Good due to: current objective clinical presentation The patient will benefit from skilled therapy services to meet the goals established for this plan of care as noted below. Classification Pain Mechanism Classification: Neuropathic Low Back Pain Classification: Movement Control Goals for Episode of Care: established 06/29/24 Independent in home exercises. Patient will decrease pain rating by 2 points to meet minimal clinical important difference for numeric pain rating scale. Restore pain-free lumbar ROM to WNL to allow for ease of bending, twisting, and lifting. Pt will be able to get OOB without pain in 8 weeks or less Pt will be able to perform work duties without pain in 10 weeks or less Patient Goals: Return to work Time Frame for Goals and Treatment : 08/24/24 Planned Interventions, Frequency, and Duration: Current Frequency: 1x/week Duration: 8 weeks Total Number of Visits Planned: 8 Planned Treatment Interventions: Therapeutic exercise (45685), Neuromuscular re-education (91512), Manual therapy (08353), Self-chcf management (51853), Therapeutic activities (48362), Patient/Family/Caregiver Education PLAN FOR NEXT VISIT: Very gentle sciatic nerve glides. TA strengthening. Lumbar extensor strengthening. Patient demonstrates good understanding of plan of care and treatment. The above goals and plan of care were discussed and agreed upon by patient/family. SUBJECTIVE: Microdiscectomy on 06/06/2024. Has pain intermittently down the R leg around the side of the leg. Get a pulling sensation in the RLE. Going back to work on the of this month. Has a video chat with the doctor on the . 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 Do not lift above 10 pounds. He was told after he goes to work he can add 5# per week in terms of lifting. Patient Goals: Return to work Functional Limitations: lifting, bending, twisting, working Prior Level of Function: Independent without limitations Intake Information: Prescription present Previous Treatment: Surgery , Physical Therapy Pain: Pain Pain Level: 2 Pain Location: Low Back/Lumbar Spine - Right Description: Sore PROMIS Scales 06/29/2024 04/15/2024 05/24/2023 Higher is Better Phys Func - T Score 39 (moderate dysfunction) 38 (moderate dysfunction) Phys Func - Percentile 14 12 Self-Eff Symptom - T Score 46 (Average) Self-Eff Symptom - Percentile 34 06/29/2024 04/15/2024 05/24/2023 Lower is Better Pain Interference - T Score 57 (mild) 72 (severe) 66 (moderate) Pain Interference - Percentile 24 1 5 T-scores: mean of general population = 50. 5 points is clinically meaningfully difference Percentiles provide an indication of how the patient's score ranks in relation to the general population. Higher percentile rankings indicate better function/quality of life. 50th percentile is the average of the general population and indicates half of respondents had a worse score. OBJECTIVE MEASURES WITH LEVEL OF FUNCTION: Posture / Alignment Posture: Good Lumbar Spine AROM Lumbar Flexion: Moderate limitation, Increased pain Lumbar Extension: Minimal limitation, Increased pain Lumbar R Side-Bend: Normal Lumbar L Side-Bend: Normal Lumbar R Rotation: Normal Lumbar L Rotation: Minimal limitation LE Strength R Hip Flexion (L2): 4+/5 R Knee Extension (L3): 4/5 R Ankle Dorsiflexion (L4): 5/5 Special Tests - Hip and Spine Hip and Spine Special Tests: SLR Test SLR Test: Right Positive (Most likley due to inflammation/scar tissue around the nerve root from surgery) Gait Gait Observation: WNL Education: Education Learning Preferences: Demonstration, Explanation, Performance, Printed Materials Barriers: None Learning/educational needs: Home exercise program, Plan of Care, Changes in Plan of Care Education Provided: Yes, see treatment interventions for education provided Education Provided To: Patient Education Mode/Type: Demonstration, Explanation/Discussion, Literature/Printed Materials, Performance Response to Education/Teach Back: States/Identifies, Return Demonstration TREATMENT: PT Treatment Interventions: Therapeutic Exercise Evaluation Therapeutic Exercise: 1: Discussed exam findings, purpose of the HEP and the HEP handout was provided to the pt. HEP discussed in detail with how to safely and properly perform each therapeutic exercise. 2: Supine TA set x 10 counting to 3 3: Hooklying LTR x 10 R and L 4: Hooklying RLE sciatic nerve glides x 10 Skilled Intervention: Patient was educated in proper exercise technique and purpose for exercises. Skilled judgment was used in selection of appropriate interventions. Provided written instruction for home exercise program to facilitate proper performance and compliance. Correct performance of therapeutic exercises was facilitated with verbal and visual cuing. Billing * Evaluation Low Complexity: 1 Unit Therapeutic Exercise Treatment Minutes: 24 Skilled Treatment Time Minutes (timed and untimed codes): 48 Total Session Time (minutes): 48 Session Start Time : 1213 Session Stop Time : 1301 Mak Morales PT documented in this encounter [facility] 06-29-2024 Note HNO ID: [id number] Author: MAK MORALES PT Service: ? Author Type: Physical Therapist Type: Progress Notes Filed: 06/29/2024 13:20 Note Text: Episode Visit Count: 1 Therapist That Will Accept/Oversee The Plan Of Care: Mak Morales PT Start of Care Date: 06/29/24 Onset Date: 06/29/22 Plan of Care Certification Date: 06/29/24 Next Certification Due Date: 08/10/24 Patient Identified by Name and Date of : Yes REHABILITATION AND SPORTS THERAPY PHYSICAL THERAPY EVALUATION PLAN OF CARE: Assessment: Jaime Vega presents with diagnosis of S/P microdiscectomy on 06/06/24 that interferes with lifting, bending, twisting, working . The patient presents with impairments in independence in exercise, overall function, range of motion, strength, and tissue tenderness. PROMIS? (Patient-Reported Outcomes Measurement Information System) scores were reviewed and identified as a rehabilitation concern. Prognosis for therapy is Good due to: current objective clinical presentation The patient will benefit from skilled therapy services to meet the goals established for this plan of care as noted below. Classification Pain Mechanism Classification: Neuropathic Low Back Pain Classification: Movement Control Goals for Episode of Care: established 06/29/24 Independent in home exercises. Patient will decrease pain rating by 2 points to meet minimal clinical important difference for numeric pain rating scale. Restore pain-free lumbar ROM to WNL to allow for ease of bending, twisting, and lifting. Pt will be able to get OOB without pain in 8 weeks or less Pt will be able to perform work duties without pain in 10 weeks or less Patient Goals: Return to work Time Frame for Goals and Treatment : 08/24/24 Planned Interventions, Frequency, and Duration: Current Frequency: 1x/week Duration: 8 weeks Total Number of Visits Planned: 8 Planned Treatment Interventions: Therapeutic exercise (04896), Neuromuscular re-education (89602), Manual therapy (00351), Self-chcf management (68664), Therapeutic activities (21771), Patient/Family/Caregiver Education PLAN FOR NEXT VISIT: Very gentle sciatic nerve glides. TA strengthening. Lumbar extensor strengthening. Patient demonstrates good understanding of plan of care and treatment. The above goals and plan of care were discussed and agreed upon by patient/family. SUBJECTIVE: Microdiscectomy on 06/06/2024. Has pain intermittently down the R leg around the side of the leg. Get a pulling sensation in the RLE. Going back to work on the of this month. Has a video chat with the doctor on the . 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 Do not lift above 10 pounds. He was told after he goes to work he can add 5# per week in terms of lifting. Patient Goals: Return to work Functional Limitations: lifting, bending, twisting, working Prior Level of Function: Independent without limitations Intake Information: Prescription present Previous Treatment: Surgery , Physical Therapy Pain: Pain Pain Level: 2 Pain Location: Low Back/Lumbar Spine - Right Description: Sore PROMIS Scales 06/29/2024 04/15/2024 05/24/2023 Higher is Better Phys Func - T Score 39 (moderate dysfunction) 38 (moderate dysfunction) Phys Func - Percentile 14 12 Self-Eff Symptom - T Score 46 (Average) Self-Eff Symptom - Percentile 34 06/29/2024 04/15/2024 05/24/2023 Lower is Better Pain Interference - T Score 57 (mild) 72 (severe) 66 (moderate) Pain Interference - Percentile 24 1 5 T-scores: mean of general population = 50. 5 points is clinically meaningfully difference Percentiles provide an indication of how the patient's score ranks in relation to the general population. Higher percentile rankings indicate better function/quality of life. 50th percentile is the average of the general population and indicates half of respondents had a worse score. OBJECTIVE MEASURES WITH LEVEL OF FUNCTION: Posture / Alignment Posture: Good Lumbar Spine AROM Lumbar Flexion: Moderate limitation, Increased pain Lumbar Extension: Minimal limitation, Increased pain Lumbar R Side-Bend: Normal Lumbar L Side-Bend: Normal Lumbar R Rotation: Normal Lumbar L Rotation: Minimal limitation LE Strength R Hip Flexion (L2): 4+/5 R Knee Extension (L3): 4/5 R Ankle Dorsiflexion (L4): 5/5 Special Tests - Hip and Spine Hip and Spine Special Tests: SLR Test SLR Test: Right Positive (Most likley due to inflammation/scar tissue around the nerve root from surgery) Gait Gait Observation: WNL Education: Education Learning Preferences: Demonstration, Explanation, Performance, Printed Materials Barriers: None Learning/educational needs: Home exercise program, Plan of Care, Changes in Plan of Care Education Provided: Yes, see treatment interventions for education provided Education Provided To: Patient Educati (more content not included)... [facility] 06-21-2024 Note HNO ID: [id number] Author: MEGHAN NAIK PA-C Service: ? Author Type: Physician Reclamation Kettle Tender Type: Progress Notes Filed: 06/21/2024 10:12 Note Text: SPINE SURGERY FOLLOW UP This is an in-person visit. I have communicated my name and active licensure. The patient's identity and physical location were verified at the time of this visit. Either the patient or their legal senior customer service representative has been informed of the risks and benefits of -- and alternatives to -- treatment through a remote evaluation and consents to proceed with the evaluation remotely. SERVICE DATE: 06/21/2024 SURGERY DATE: 06/06/2024 Jaime Vega is seen for 2 week post operative follow up. Mr. Vega is s/p right L4-5 microdiscectomy on 06/06/2024. Pre-operatively, he complained of low back pain with right lower extremity pain in an L5 distribution. Today, he reports some soreness in the low back. The pain in the back has improved over the past couple of weeks, though he still gets positional pain. He reports the nerve pain in the right leg is improved. There is a spot by his right knee where he has a stabbing pain which is sporadic and better than it was pre-operatively. He denies any numbness or tingling in the lower extremities. He is not currently taking any pain medication. He was taking Vicodin and and a muscle relaxant but he is doing well without them. He is concerned with return to work as he has a physical job. He states his incision is healing well. He denies any drainage. Return to work 07/18/2024. He would like to come back for his next follow up before he is due to return to work. He would prefer a virtual visit. PAIN EVALUATION No data found in the last 1 encounters. ANTIPLATELET OR ANTICOAGULATION STATUS: No Patient Entered Questionnaires 05/24/2023 04/15/2024 Spine Questions Pain Location: Leg Lower back Pain Duration: 6 months - 1 year 1 to 5 years Pain over last 6 months: Every day or nearly every day in the past 6 months Every day or nearly every day in the past 6 months Symptoms from neck/cervical spine: Yes No Employment Status: Working now Working now Involved in law suit/legal claim: No 05/24/2023 Neck Questionnaires Benzel Modified DIANE Score 16 (Mild Myelopathy Symptoms) PROMIS Score Percentiles 02/16/2023 05/24/2023 04/15/2024 Physical Health Physical Function Percentile 12 12 14 Sleep Percentile 12 12 Fatigue Percentile 8 8 Pain Interference Percentile 5 1 05/24/2023 04/15/2024 PROMIS SOCIAL ROLE SCORE Social Role Satisfaction Percentile 7 7 11/06/2022 02/16/2023 04/15/2024 PROMIS Global Health Scale Physical Health Percentile 10 7 4 Mental Health Percentile 5 5 13 Percentiles provide an indication of how the patient's score ranks in relation to the general population. Higher percentile rankings indicate better function/quality of life. 50th percentile is the average of the general population and indicates half of respondents had a worse score. Depression Screenin05/12/2020 04/15/2024 PHQ-9 Score 10 11 05/12/2020 04/15/2024 PHQ-9 Self-harm Question Question 9 Not at all Not at all PHQ-9 Self-Harm (Item 9) response options: 0 Not at all 1 Several days 2 More than half the days 3 Nearly every day PHQ-9 Levels: 0-4 No to mild depression 5-9 Mild depression 10-14 Moderate depression 15-19 Moderately severe depression 20-27 Severe depression PHYSICAL EXAM: There were no vitals taken for this visit. GENERAL APPEARANCE: Well nourished, well developed, and no apparent distress. NEURO PSYCH: Patient oriented to person, place, and time. Mood pleasant. Benign affect. MUSCULOSKELETAL VISUAL INSPECTION CERVICAL: WNL THORACIC: WNL LUMBAR: WNL Virtual Visit DATA REVIEW [facility] records independently reviewed Imaging and outside records independently reviewed ASSESSMENT/PLAN No diagnosis found. Jaime Vega will continue with medical management of his/her condition. - Discussed bending, lifting, twisting restrictions to persist till six weeks - Order for PT provided - Discussed wound care, including washing daily with soap and water, no creams or ointments over incision until six weeks post-op - Okay to drive if comfortable - Will plan to follow up prior to return to work date 1. Consults: Physical Therapy 2. Follow up: Six weeks post-op Imaging Ordered: None Medical Decision Making: Problems: Minimal: Self-limited or minor problem Risk: Minimal: Minimal risk from testing/treatment Medical Decision Making Level: 2 - Straightforward SIGNATURE: Meghan Naik PA-C PATIENT NAME: Jaime Vega DATE: June 21, 2024 TIME: 9:49 AM PAGER: [facility] 06-21-2024 History of Present illness Narrative Images from the original note were not included. SPINE SURGERY FOLLOW UP This is an in-person visit. I have communicated my name and active licensure. The patient's identity and physical location were verified at the time of this visit. Either the patient or their legal senior customer service representative has been informed of the risks and benefits of -- and alternatives to -- treatment through a remote evaluation and consents to proceed with the evaluation remotely. SERVICE DATE: 06/21/2024 SURGERY DATE: 06/06/2024 Jaime Vega is seen for 2 week post operative follow up. Mr. Vega is s/p right L4-5 microdiscectomy on 06/06/2024. Pre-operatively, he complained of low back pain with right lower extremity pain in an L5 distribution. Today, he reports some soreness in the low back. The pain in the back has improved over the past couple of weeks, though he still gets positional pain. He reports the nerve pain in the right leg is improved. There is a spot by his right knee where he has a stabbing pain which is sporadic and better than it was pre-operatively. He denies any numbness or tingling in the lower extremities. He is not currently taking any pain medication. He was taking Vicodin and and a muscle relaxant but he is doing well without them. He is concerned with return to work as he has a physical job. He states his incision is healing well. He denies any drainage. Return to work 07/18/2024. He would like to come back for his next follow up before he is due to return to work. He would prefer a virtual visit. PAIN EVALUATION No data found in the last 1 encounters. ANTIPLATELET OR ANTICOAGULATION STATUS: No Patient Entered Questionnaires 05/24/2023 04/15/2024 Spine Questions Pain Location: Leg Lower back Pain Duration: 6 months - 1 year 1 to 5 years Pain over last 6 months: Every day or nearly every day in the past 6 months Every day or nearly every day in the past 6 months Symptoms from neck/cervical spine: Yes No Employment Status: Working now Working now Involved in law suit/legal claim: No 05/24/2023 Neck Questionnaires Benzel Modified DIANE Score 16 (Mild Myelopathy Symptoms) PROMIS Score Percentiles 02/16/2023 05/24/2023 04/15/2024 Physical Health Physical Function Percentile 12 12 14 Sleep Percentile 12 12 Fatigue Percentile 8 8 Pain Interference Percentile 5 1 05/24/2023 04/15/2024 PROMIS SOCIAL ROLE SCORE Social Role Satisfaction Percentile 7 7 11/06/2022 02/16/2023 04/15/2024 PROMIS Global Health Scale Physical Health Percentile 10 7 4 Mental Health Percentile 5 5 13 Percentiles provide an indication of how the patient's score ranks in relation to the general population. Higher percentile rankings indicate better function/quality of life. 50th percentile is the average of the general population and indicates half of respondents had a worse score. Depression Screenin05/12/2020 04/15/2024 PHQ-9 Score 10 11 05/12/2020 04/15/2024 PHQ-9 Self-harm Question Question 9 Not at all Not at all PHQ-9 Self-Harm (Item 9) response options: 0 Not at all 1 Several days 2 More than half the days 3 Nearly every day PHQ-9 Levels: 0-4 No to mild depression 5-9 Mild depression 10-14 Moderate depression 15-19 Moderately severe depression 20-27 Severe depression PHYSICAL EXAM: There were no vitals taken for this visit. GENERAL APPEARANCE: Well nourished, well developed, and no apparent distress. NEURO PSYCH: Patient oriented to person, place, and time. Mood pleasant. Benign affect. MUSCULOSKELETAL VISUAL INSPECTION CERVICAL: WNL THORACIC: WNL LUMBAR: WNL Virtual Visit DATA REVIEW [facility] records independently reviewed Imaging and outside records independently reviewed ASSESSMENT/PLAN No diagnosis found. Jaime Vega will continue with medical management of his/her condition. - Discussed bending, lifting, twisting restrictions to persist till six weeks - Order for PT provided - Discussed wound care, including washing daily with soap and water, no creams or ointments over incision until six weeks post-op - Okay to drive if comfortable - Will plan to follow up prior to return to work date 1. Consults: Physical Therapy 2. Follow up: Six weeks post-op Imaging Ordered: None Medical Decision Making: Problems: Minimal: Self-limited or minor problem Risk: Minimal: Minimal risk from testing/treatment Medical Decision Making Level: 2 - Straightforward SIGNATURE: Meghan Naik PA-C PATIENT NAME: Jaime Vega DATE: June 21, 2024 TIME: 9:49 AM PAGER: documented in this encounter [facility] 06-06-2024 Note HNO ID: [id number] Author: SIENA SALTER MD Service: Anesthesiology Author Type: Anesthesiologist Type: Anesthesia Procedure Notes Filed: 06/06/2024 12:48 Note Text: ANESTHESIOLOGY PROCEDURE NOTE Airway General Information Procedure Start Time/Medication Administration: 06/06/2024 8:41 AM Procedure End Time: 06/06/2024 8:43 AM Patient location during procedure: OR Timeout Performed Pre-procedure: timeout performed Consent Obtained: Yes Patient identity confirmed: arm band Staffing Anesthesiologist: Siena Salter MD HEAD LOADER: Abi Oglesby APRN.HEAD LOADER Performed by: LOULOU Indications and Patient Condition Indications for airway management: anesthesia Preoxygenated: yes anesthesia circuit Patient position: sniffing Method: asleep Cricoid Pressure: No Manual In-Line Stabilization: No Difficult Mask: No Final Airway Details Final airway type: endotracheal airway Final Endotracheal Airway: ETT Cuffed: yes Successful intubation technique: video laryngoscopy Devices used: The GunBox Endotracheal tube insertion site: oral Blade: Jade Blade size: #4 ETT size (mm): 7.5 Measured from: lips Measurement (cm): 22 Placement verified by: chest auscultation and capnometry Cormack-Lehane Classification: grade I - full view of glottis Number of attempts at approach: 1 Failed airway: no Unrecognized esophageal intubation: no Airway not difficult SIGNATURE: Abi Oglesby APRN.HEAD LOADER PATIENT NAME: Jaime Vega DATE: June 06, 2024 TIME: 8:59 AM CSN: [id number] [facility] 05-30-2024 Telephone encounter Note Completed and addressed in other encounter from patient. [facility] 05-30-2024 Miscellaneous Notes Completed and addressed in other encounter from patient. Printed for review and signature. FMLA form scanned to [facility] documented in this encounter [facility] 05-26-2024 Telephone encounter Note Printed for review and signature. [facility] 05-26-2024 Telephone encounter Note FMLA form scanned to [facility] 05-15-2024 History and physical note Images from the original note were not included. [facility] HISTORY AND PHYSICAL EXAMINATION SERVICE DATE: 05/15/2024 SERVICE TIME: 12:16 PM PRIMARY CARE PHYSICIAN: Conor Pantoja MD Assessment Patient has the following medical conditions which may affect macie-operative course: Primary hypertension Assessment: controlled on rx Last 14 BP Last 14 Encounter BP Readings: Date: BP: 05/15/2024 118/80 04/17/2024 147/92 02/17/2024 121/80 01/19/2024 130/80 12/29/2023 132/78 12/06/2023 141/93 11/22/2023 132/90 09/17/2023 113/72 08/20/2023 126/80 07/16/2023 122/77 05/27/2023 141/87 05/26/2023 126/71 04/14/2023 123/85 02/08/2023 [not assessed today[ Mixed hyperlipidemia Assessment: diet controlled Enlarged thoracic aorta (HCC) Assessment: borderline dilated 3.8cm 12/27/2023 echo 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 Shape of flow volume loop shows obstruction. Lung volumes are normal. Electronically Signed On 01-21-2024 15:12:02 EDT by Anny Manuel MD Pulmonary nodules Assessment: under surveillance, unchanged Anxiety and depression Assessment: stable on rx per pt Former smoker Assessment: vague hx given Obesity, Class II, BMI 35-39.9 Assessment: Body mass index is 36.03 kg/m . Gonzalez Activity Status Index: METS: Climb a flight of stairs or walk up a hill (5.50 METs) DASI Score: 5.5 Patient denies any chest pain or undue shortness of breath with the above physical activity. Clinical Frailty Scale: 3. Well, with treated comorbid disease STOP-Bang Score: Snores loudly Has or is being treated for high blood pressure BMI greater than 35 kg/m^2 Has a large neck Male patient Denies feeling tired, fatigued, or sleepy during the daytime Has not been observed to stop breathing or choking/gasping during sleep Patient 50 years old or younger STOP-Bang Score: 5 [id number] Score: Age: <65 Sex: male CHF history: No Hypertension history: Yes Stroke/TIA/thromboembolism history: No Vascular disease history: No Diabetes history: No [id number] Score: 1 ARISCAT Score: Age: <=50 Preoperative SpO2: >=96% Respiratory infection in the last month: No Preoperative anemia: No Surgical incision: peripheral Duration of surgery: 2-3 hrs Emergency procedure: No ARISCAT Score: 16 ANESTHESIA FINDINGS: Intubation History: No history of difficult intubation Significant Anesthesia Considerations: none Airway History: No history of difficult airway I - PHYSICAL EVALUATION AIRWAY Patient intubated: No. Tracheostomy tube not present Mallampati: II. TM distance: >3 FB. Neck ROM: full ROM without neurological symptoms. Mouth opening: adequate. Short neck: no. Thick neck: yes Camacho present: yes Lip Bite Test: I Microretrognathia/Micronagthia/Recesse d Chin: No DENTAL Dental findings: teeth intact. II - ANESTHESIA PLAN Anesthetic Plan: other Beta Gloria Monitoring Plan Post Procedure Analgesic Plan Prepared for Surgery: optimally prepared for surgery. Labs-reviewed, okay to proceed-JL CONSULTS: Patient does not require consults for optimization at this time Planned Anesthetic: other anesthesia choice The Following Tests/Procedures Have Been Initiated: Orders Placed This Encounter >CBC + AUTO DIFF Standing Status: Future Number of Occurrences: 1 Standing Expiration Date: 08/14/2024 >CMP Standing Status: Future Number of Occurrences: 1 Standing Expiration Date: 08/14/2024 REASON FOR VISIT: Jaime Vega is a 43 year old male who is scheduled for Procedure(s) with comments: LAMINECTOMY DISCECTOMY LUMBAR LEVEL 1 (Right) - Right L4-5 microdiscectomy at the request of Dr. Debora Baldwin for consultation. My final recommendation will be communicated back to the requesting physician by way of shared medical record or letter. Subjective The patient has the following: COVID-19 Immunization Status Overdue - Covid-19 Vaccine ( season) Never done 11/22/2023 Postponed until 11/21/2024 by Conor Pantoja MD (Declined at this time) CHIEF COMPLAINT: Pre-op exam HPI: Jaime Vega is a 43 year old seen for PAC due to scheduled above surgery because of lumbar spinal stenosis. 04/17/2024, Dr. Mishel Brown HISTORY OF PRESENT ILLNESS: Jaime Vega is a 43 year old male presenting alone. CHIEF COMPLAINT: lower back pain with radiation into right leg into top of foot PRECIPITATING EVENT: Injury at home. DURATION OF SYMPTOMS: Greater Than 1 Year Complaints of lower back pain with radiation into right leg into top of foot which started 2 years ago when he fell off a ladder. The pain averages around 8 of 10. It is stabbing quality. Sports activity partially with rest. No left sided symptoms. He has had two Injections in the past which did not provide any relief and only lasted for few hours. Denies tobacco use. PAIN EVALUATION 04/15/2024 1249 04/17/2024 0839 Pain Level: - 8 Pain Location: Back-Lower Back-Lower Description: Aching;Burning;Cramping;Cutting;Numbne ss;Pressure;Pulsating;Radiating;Sharp; Sore;Spasm;Stabbing;Stiffness;Tenderne ss;Throbbing;Tingling Stabbing;Shooting;Burning Duration Amount of Time: 24 - Duration Units: Weeks - Frequency: Continuous Continuous Intervention/Comfort measure: Medication;Pillow support;Positioning - Pain Radiation: to the right leg into right foot. Aggravating Factors: Standing, Walking Alleviating Factors: None Pain Ratio: Pain in the back is greater than in the leg DERMATOMAL DISTRIBUTION: Right: L5 AMBULATORY STATUS: Independent Community Distances ANTIPLATELET OR ANTICOAGULATION STATUS: No PREVIOUS CONSERVATIVE TREATMENTS: PT- 2022 Tylenol Ibuprofen RIGHT L4-5 TFESI - 09/03/2023- no improvement lasted few hours. RIGHT L4-5 TFESI -06/17/2023- 80% improvement PREVIOUS SPINAL SURGERY: None REVIEW OF SYSTEMS: General: No weight loss, malaise or fevers. Neurological: No history of TIA's, stroke, GUN SYNCHRONIZER tumor, impaired sensorium, hemiplegia, paraplegia or quadraplegia. No neurological symptoms or problems. Respiratory: Positive for: asthma (on rx and as needed), obstructive sleep apnea and CPAP/BiPAP compliant. Negative for: COPD, pneumonia within 6 weeks, tobacco use and URI < 2 weeks. Cardiovascular: +borderline aorta dilation Positive for: hypertension (on rx) Negative for: abdominal aortic aneurysm, AICD/PPM, angina, anticoagulation therapy, arrhythmia, atrial fibrillation, CAD, chest pain, CHF, congenital heart defect, DVT/PE, hyperlipidemia, recent VA, murmur/valvular heart disease, PTCA, PVD, open heart surgery and valve surgery. GI: Positive for: GERD (on rx) Negative for: abdominal pain, dysphagia, hepatitis, irritable bowel syndrome, inflammatory bowel disease, liver disease, nausea, pancreatitis, vomiting and ETOH >2 drinks/day. : No history of dysuria, frequency or incontinence, stones or chronic kidney disease. No difficulty urinating, nocturia > 1 time per night or hematuria. Endocrine: No history of diabetes. Has not taken steroids within the past 30 days. No history of endocrinological symptoms or problems. Hematology: No history of bleeding or clotting disorder. Patient is not taking anti-coagulation or platelet medications. No history of hematological symptoms or problems. Oncology: No history of CA metastasis, chemo within 30 days, or radiotherapy within 90 days. No history of oncological symptoms or problems. Psych: Positive for: anxiety (on rx) and depression (on rx). Negative for: Marijuana Use. Musculoskeletal: Positive for: back pain. Skin: Negative for lesions, rash and itching. Implanted Devices: No implanted devices. PAST MEDICAL HISTORY Diagnosis Date Abdominal pain Anxiety Asthma Depression VILLEGAS (dyspnea on exertion) HTN (hypertension) Mixed hyperlipidemia Obesity Primary cardiomyopathy (HCC) Sleep apnea Spinal stenosis PAST SURGICAL HISTORY Procedure Laterality Date COLONOSCOPY 06/15/2022 repeat in 1 year with MAC COLONOSCOPY FLX DX W/COLLJ SPEC WHEN PFRMD 08/21/2015 Colonoscopy with mac ESOPHAGOGASTRODUODENOSCOPY TRANSORAL DIAGNOSTIC 08/21/2015 EGD with mac PAST SURGICAL HISTORY OF fatty cyst removed from stomach PAST SURGICAL HISTORY OF wisdom teeth FAMILY HISTORY Problem Relation Age of Onset Heart Father Colon Cancer Father other (colitis) Father other (autism) Son GI issues/ear problems/adhd Social History Tobacco Use Smoking status: Never Smokeless tobacco: Former Types: Chew Quit date: 12/15/2023 Vaping Use Vaping status: Never Used Substance Use Topics Alcohol use: No Drug use: No Prior to Admission medications as of 05/19/24 1210 Medication Sig Last Dose Taking mupirocin (BACTROBAN) 2 % ointment Apply 1/2 ointment with a cotton swab in each nostril 2x daily for five days preop Patient should start on June 01, 2024. Taking Yes guanFACINE (TENEX) 2 mg tablet Taking Yes omeprazole (PRILOSEC) 40 mg capsule Take 1 capsule by mouth once daily. Taking Yes mometasone (ELOCON) 0.1 % cream Apply 1 application to affected area once daily. Taking Yes amLODIPine (NORVASC) 5 mg tablet Take 1 tablet by mouth once daily. Taking Yes ciprofloxacin-dexAMETHasone (CIPRODEX) 0.3-0.1 % otic suspension Use 4 Drops in both ears two times a day. Taking Yes Kbkhwrrd-Mbnwix-MM-Thonzonium (CORTISPORIN-TC) otic suspension Use 3 Drops in the ears four times daily. Taking Yes ibuprofen (MOTRIN) 600 mg tablet Take 600 mg by mouth once daily as needed for pain (pain). Takes 600-800mg dose Taking Yes acetaminophen (TYLENOL) 500 mg tablet Take 1,000 mg by mouth as needed for pain. Taking Yes QELBREE 100 mg capsule, extended release Take 200 mg by mouth every morning. Take a total of 500 mg; two 200 mg and one 100 mg Taking Yes melatonin 3 mg tablet TAKE 1 TABLET APPROXIMATELY 7PM NIGHTLY. Taking Yes clotrimazole-betamethasone (LOTRISONE) cream Apply to affected area twice daily. APPLY TO AFFECTED AREA Taking Yes fluticasone-salmeterol HFA (ADVAIR HFA) 115-21 mcg/actuation inhaler Inhale 2 Puffs as instructed twice daily. Rinse mouth after use. Taking Yes albuterol (PROVENTIL) 2.5 mg /3 mL (0.083 %) nebulizer solution Use 3 mL via nebulizer every 4 hours as needed for wheezing/shortness of breath. Use over 5-15minutes. Taking Yes ipratropium-albuterol (DUONEB) 0.5 mg-3 mg(2.5 mg base)/3 mL nebu Inhale 3 mL as instructed every 6 hours as needed (wheezing). Taking Yes albuterol HFA (VENTOLIN HFA) 90 mcg/actuation inhaler INHALE 2 PUFFS BY MOUTH DIRECTED EVERY 4 HOURS NEEDED FOR WHEEZING OR SHORTNESS OF BREATH Taking Yes CPAP Initiate Auto PAP @ 5-20 cm of water with humidification. Mask (per patient preference) optional chin strap (if indicated) , filters, tubing, humidifier and lifetime supplies. Taking Yes fluticasone (FLONASE) 50 mcg/actuation nasal spray Use 2 Sprays in each nostril once daily. Taking Yes cetirizine (ZYRTEC) 10 mg tablet Take 1 tablet by mouth once daily as needed. Taking Yes No medication comments found. ALLERGIES Allergen Reactions Acetaminophen-Codei* Rash Seasonal Allergies Unknown CATS, DOGS, COCKROACHES, MOLDS, TREES, GRASSES, WEEDS AND RAGWEED VERIFIED BY SKIN TESTING [place] [[place]* Other: See Comments irritable Objective PHYSICAL EXAM: General: alert and oriented (x3), healthy appearance and obese. Pertinent negatives noted - not distressed. Skin: normal color, no rash or lesions. HEENT: EOM intact and pupils equal round. Pertinent negatives noted - no carotid bruit. Cardiovascular: regular rate and rhythm, normal S1 and S2, no rub, murmurs, or gallop. Respiratory: normal breath sounds, no wheezes or crackles. No chest wall deformity or tenderness. Abdomen: soft. Pertinent negatives noted - not tender. Extremities: no deformity, no edema or tenderness, no joint swelling or clubbing. Neurological: normal cognition and motor skills. Gait normal. No weakness or sensory deficit. PAIN ASSESSMENT: Pain Pain Level: 10 Pain Location: Back Description: Stabbing, Burning, Numbness, Tingling Duration Amount of Time: 1 Duration Units: Years Frequency: Continuous Intervention/Comfort measure: Medication VITALS: BP 118/80 Pulse 79 Temp (Src) 97.7 (Temporal) Resp 14 Ht 5' 9 (1.75m) Wt 244 lb (110.7kg) SpO2 97% BMI 36.02 kg/(m^2). Diagnostic tests reviewed for today's visit: Lab Value Units Date High Low HB 15.3 g/dL 05/15/2024 17.0 13.0 HCT 44.8 % 05/15/2024 51.0 39.0 WBC 8.61 k/uL 05/15/2024 11.00 3.70 PLT 292 k/uL 05/15/2024 400 150 NA 143 mmol/L 05/15/2024 144 136 K 4.3 mmol/L 05/15/2024 5.1 3.7 GLUC 99 mg/dL 05/15/2024 99 74 BUN 20 mg/dL 05/15/2024 24 9 CREAT 1.19 mg/dL 05/15/2024 1.22 0.73 PTSEC No results within date range. INR No results within date range. APTT No results within date range. ALT 36 U/L 05/15/2024 54 10 AST 20 U/L 05/15/2024 40 14 TBILI 0.3 mg/dL 05/15/2024 1.3 0.2 TSH No results within date range. Lab Value Units Date High Low HCGQT No results within date range. UHCG No results within date range. HCG, BODY* No results within date range. Lab Value Units Date High Low ABORHD No results within date range. ABSCREEN No results within date range. No results found for: HBA1C Recent Results (from the past 8760 hour(s)) ECG COMPLETE Collection Time: 12/06/23 2:42 PM Result Value Ventricular Rate 74 Atrial Rate 74 P-R Interval 158 QRS Duration 90 QT Interval 364 QTC Calculation (Bazett) 404 Calculated P [place] 5 Calculated R [place] -7 Calculated T [place] -1 Impression NORMAL SINUS RHYTHM MINIMAL VOLTAGE CRITERIA FOR LVH, MAY BE NORMAL VARIANT BORDERLINE ECG Recent Results (from the past 66282 hour(s)) ECHO Collection Time: 12/27/23 3:13 PM Impression CONCLUSIONS: - Technically difficult exam due to body habitus. - Exam indication: Shortness of Breath - The left ventricle is normal in size. Left ventricular systolic function is normal. EF = 58 5% (2D biplane). Normal left ventricular diastolic function. - The right ventricle is normal in size. Right ventricular systolic function is normal. - There are no significant valvular abnormalities. - The visualized aorta is borderline dilated with a maximal dimension of 3.8 cm. - Exam was compared with the prior echocardiographic exam performed on 09/18/2021, no significant change. * * * Final * * * Instructions Given to Patient: Instructions located in the after visit summary. Patient given verbal and written preop instructions and voices comprehension and compliance. SIGNATURE: Igor Quijano APRN.CNP PATIENT NAME: Jaime Vega DATE: May 15, 2024 TIME: 3:47 PM PAGER/CONTACT #: [facility] 05-15-2024 History and physical note Images from the original note were not included. [facility] HISTORY AND PHYSICAL EXAMINATION SERVICE DATE: 05/15/2024 SERVICE TIME: 12:16 PM PRIMARY CARE PHYSICIAN: Conor Pantoja MD Assessment Patient has the following medical conditions which may affect macie-operative course: Primary hypertension Assessment: controlled on rx Last 14 BP Last 14 Encounter BP Readings: Date: BP: 05/15/2024 118/80 04/17/2024 147/92 02/17/2024 121/80 01/19/2024 130/80 12/29/2023 132/78 12/06/2023 141/93 11/22/2023 132/90 09/17/2023 113/72 08/20/2023 126/80 07/16/2023 122/77 05/27/2023 141/87 05/26/2023 126/71 04/14/2023 123/85 02/08/2023 [not assessed today[ Mixed hyperlipidemia Assessment: diet controlled Enlarged thoracic aorta (HCC) Assessment: borderline dilated 3.8cm 12/27/2023 echo 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 Shape of flow volume loop shows obstruction. Lung volumes are normal. Electronically Signed On 01-21-2024 15:12:02 EDT by Anny Manuel MD Pulmonary nodules Assessment: under surveillance, unchanged Anxiety and depression Assessment: stable on rx per pt Former smoker Assessment: vague hx given Obesity, Class II, BMI 35-39.9 Assessment: Body mass index is 36.03 kg/m . Gonzalez Activity Status Index: METS: Climb a flight of stairs or walk up a hill (5.50 METs) DASI Score: 5.5 Patient denies any chest pain or undue shortness of breath with the above physical activity. Clinical Frailty Scale: 3. Well, with treated comorbid disease STOP-Bang Score: Snores loudly Has or is being treated for high blood pressure BMI greater than 35 kg/m^2 Has a large neck Male patient Denies feeling tired, fatigued, or sleepy during the daytime Has not been observed to stop breathing or choking/gasping during sleep Patient 50 years old or younger STOP-Bang Score: 5 [id number] Score: Age: <65 Sex: male CHF history: No Hypertension history: Yes Stroke/TIA/thromboembolism history: No Vascular disease history: No Diabetes history: No [id number] Score: 1 ARISCAT Score: Age: <=50 Preoperative SpO2: >=96% Respiratory infection in the last month: No Preoperative anemia: No Surgical incision: peripheral Duration of surgery: 2-3 hrs Emergency procedure: No ARISCAT Score: 16 ANESTHESIA FINDINGS: Intubation History: No history of difficult intubation Significant Anesthesia Considerations: none Airway History: No history of difficult airway I - PHYSICAL EVALUATION AIRWAY Patient intubated: No. Tracheostomy tube not present Mallampati: II. TM distance: >3 FB. Neck ROM: full ROM without neurological symptoms. Mouth opening: adequate. Short neck: no. Thick neck: yes Camacho present: yes Lip Bite Test: I Microretrognathia/Micronagthia/Recesse d Chin: No DENTAL Dental findings: teeth intact. II - ANESTHESIA PLAN Anesthetic Plan: other Beta Gloria Monitoring Plan Post Procedure Analgesic Plan Prepared for Surgery: optimally prepared for surgery. Labs-reviewed, okay to proceed-JL CONSULTS: Patient does not require consults for optimization at this time Planned Anesthetic: other anesthesia choice The Following Tests/Procedures Have Been Initiated: Orders Placed This Encounter >CBC + AUTO DIFF Standing Status: Future Number of Occurrences: 1 Standing Expiration Date: 08/14/2024 >CMP Standing Status: Future Number of Occurrences: 1 Standing Expiration Date: 08/14/2024 REASON FOR VISIT: Jaime Vega is a 43 year old male who is scheduled for Procedure(s) with comments: LAMINECTOMY DISCECTOMY LUMBAR LEVEL 1 (Right) - Right L4-5 microdiscectomy at the request of Dr. Debora Baldwin for consultation. My final recommendation will be communicated back to the requesting physician by way of shared medical record or letter. Subjective The patient has the following: COVID-19 Immunization Status Overdue - Covid-19 Vaccine () Never done 11/22/2023 Postponed until 11/21/2024 by Conor Pantoja MD (Declined at this time) CHIEF COMPLAINT: Pre-op exam HPI: Jaime Vega is a 43 year old seen for PAC due to scheduled above surgery because of lumbar spinal stenosis. 04/17/2024, Dr. Mishel Brown HISTORY OF PRESENT ILLNESS: Jaime Vega is a 43 year old male presenting alone. CHIEF COMPLAINT: lower back pain with radiation into right leg into top of foot PRECIPITATING EVENT: Injury at home. DURATION OF SYMPTOMS: Greater Than 1 Year Complaints of lower back pain with radiation into right leg into top of foot which started 2 years ago when he fell off a ladder. The pain averages around 8 of 10. It is stabbing quality. Sports activity partially with rest. No left sided symptoms. He has had two Injections in the past which did not provide any relief and only lasted for few hours. Denies tobacco use. PAIN EVALUATION 04/15/2024 1249 04/17/2024 0839 Pain Level: - 8 Pain Location: Back-Lower Back-Lower Description: Aching;Burning;Cramping;Cutting;Numbne ss;Pressure;Pulsating;Radiating;Sharp; Sore;Spasm;Stabbing;Stiffness;Tenderne ss;Throbbing;Tingling Stabbing;Shooting;Burning Duration Amount of Time: 24 - Duration Units: Weeks - Frequency: Continuous Continuous Intervention/Comfort measure: Medication;Pillow support;Positioning - Pain Radiation: to the right leg into right foot. Aggravating Factors: Standing, Walking Alleviating Factors: None Pain Ratio: Pain in the back is greater than in the leg DERMATOMAL DISTRIBUTION: Right: L5 AMBULATORY STATUS: Independent Community Distances ANTIPLATELET OR ANTICOAGULATION STATUS: No PREVIOUS CONSERVATIVE TREATMENTS: PT- 2022 Tylenol Ibuprofen RIGHT L4-5 TFESI - 09/03/2023- no improvement lasted few hours. RIGHT L4-5 TFESI -06/17/2023- 80% improvement PREVIOUS SPINAL SURGERY: None REVIEW OF SYSTEMS: General: No weight loss, malaise or fevers. Neurological: No history of TIA's, stroke, GUN SYNCHRONIZER tumor, impaired sensorium, hemiplegia, paraplegia or quadraplegia. No neurological symptoms or problems. Respiratory: Positive for: asthma (on rx and as needed), obstructive sleep apnea and CPAP/BiPAP compliant. Negative for: COPD, pneumonia within 6 weeks, tobacco use and URI < 2 weeks. Cardiovascular: +borderline aorta dilation Positive for: hypertension (on rx) Negative for: abdominal aortic aneurysm, AICD/PPM, angina, anticoagulation therapy, arrhythmia, atrial fibrillation, CAD, chest pain, CHF, congenital heart defect, DVT/PE, hyperlipidemia, recent VA, murmur/valvular heart disease, PTCA, PVD, open heart surgery and valve surgery. GI: Positive for: GERD (on rx) Negative for: abdominal pain, dysphagia, hepatitis, irritable bowel syndrome, inflammatory bowel disease, liver disease, nausea, pancreatitis, vomiting and ETOH >2 drinks/day. : No history of dysuria, frequency or incontinence, stones or chronic kidney disease. No difficulty urinating, nocturia > 1 time per night or hematuria. Endocrine: No history of diabetes. Has not taken steroids within the past 30 days. No history of endocrinological symptoms or problems. Hematology: No history of bleeding or clotting disorder. Patient is not taking anti-coagulation or platelet medications. No history of hematological symptoms or problems. Oncology: No history of CA metastasis, chemo within 30 days, or radiotherapy within 90 days. No history of oncological symptoms or problems. Psych: Positive for: anxiety (on rx) and depression (on rx). Negative for: Marijuana Use. Musculoskeletal: Positive for: back pain. Skin: Negative for lesions, rash and itching. Implanted Devices: No implanted devices. PAST MEDICAL HISTORY Diagnosis Date Abdominal pain Anxiety Asthma Depression VILLEGAS (dyspnea on exertion) HTN (hypertension) Mixed hyperlipidemia Obesity Primary cardiomyopathy (HCC) Sleep apnea Spinal stenosis PAST SURGICAL HISTORY Procedure Laterality Date COLONOSCOPY 06/15/2022 repeat in 1 year with MAC COLONOSCOPY FLX DX W/COLLJ SPEC WHEN PFRMD 08/21/2015 Colonoscopy with mac ESOPHAGOGASTRODUODENOSCOPY TRANSORAL DIAGNOSTIC 08/21/2015 EGD with mac PAST SURGICAL HISTORY OF fatty cyst removed from stomach PAST SURGICAL HISTORY OF wisdom teeth FAMILY HISTORY Problem Relation Age of Onset Heart Father Colon Cancer Father other (colitis) Father other (autism) Son GI issues/ear problems/adhd Social History Tobacco Use Smoking status: Never Smokeless tobacco: Former Types: Chew Quit date: 12/15/2023 Vaping Use Vaping status: Never Used Substance Use Topics Alcohol use: No Drug use: No Prior to Admission medications as of 05/19/24 1210 Medication Sig Last Dose Taking mupirocin (BACTROBAN) 2 % ointment Apply 1/2 ointment with a cotton swab in each nostril 2x daily for five days preop Patient should start on June 01, 2024. Taking Yes guanFACINE (TENEX) 2 mg tablet Taking Yes omeprazole (PRILOSEC) 40 mg capsule Take 1 capsule by mouth once daily. Taking Yes mometasone (ELOCON) 0.1 % cream Apply 1 application to affected area once daily. Taking Yes amLODIPine (NORVASC) 5 mg tablet Take 1 tablet by mouth once daily. Taking Yes ciprofloxacin-dexAMETHasone (CIPRODEX) 0.3-0.1 % otic suspension Use 4 Drops in both ears two times a day. Taking Yes Xjejlxxp-Fkpksk-GW-Thonzonium (CORTISPORIN-TC) otic suspension Use 3 Drops in the ears four times daily. Taking Yes ibuprofen (MOTRIN) 600 mg tablet Take 600 mg by mouth once daily as needed for pain (pain). Takes 600-800mg dose Taking Yes acetaminophen (TYLENOL) 500 mg tablet Take 1,000 mg by mouth as needed for pain. Taking Yes QELBREE 100 mg capsule, extended release Take 200 mg by mouth every morning. Take a total of 500 mg; two 200 mg and one 100 mg Taking Yes melatonin 3 mg tablet TAKE 1 TABLET APPROXIMATELY 7PM NIGHTLY. Taking Yes clotrimazole-betamethasone (LOTRISONE) cream Apply to affected area twice daily. APPLY TO AFFECTED AREA Taking Yes fluticasone-salmeterol HFA (ADVAIR HFA) 115-21 mcg/actuation inhaler Inhale 2 Puffs as instructed twice daily. Rinse mouth after use. Taking Yes albuterol (PROVENTIL) 2.5 mg /3 mL (0.083 %) nebulizer solution Use 3 mL via nebulizer every 4 hours as needed for wheezing/shortness of breath. Use over 5-15minutes. Taking Yes ipratropium-albuterol (DUONEB) 0.5 mg-3 mg(2.5 mg base)/3 mL nebu Inhale 3 mL as instructed every 6 hours as needed (wheezing). Taking Yes albuterol HFA (VENTOLIN HFA) 90 mcg/actuation inhaler INHALE 2 PUFFS BY MOUTH DIRECTED EVERY 4 HOURS NEEDED FOR WHEEZING OR SHORTNESS OF BREATH Taking Yes CPAP Initiate Auto PAP @ 5-20 cm of water with humidification. Mask (per patient preference) optional chin strap (if indicated) , filters, tubing, humidifier and lifetime supplies. Taking Yes fluticasone (FLONASE) 50 mcg/actuation nasal spray Use 2 Sprays in each nostril once daily. Taking Yes cetirizine (ZYRTEC) 10 mg tablet Take 1 tablet by mouth once daily as needed. Taking Yes No medication comments found. ALLERGIES Allergen Reactions Acetaminophen-Codei* Rash Seasonal Allergies Unknown CATS, DOGS, COCKROACHES, MOLDS, TREES, GRASSES, WEEDS AND RAGWEED VERIFIED BY SKIN TESTING Darren [[place]* Other: See Comments irritable Objective PHYSICAL EXAM: General: alert and oriented (x3), healthy appearance and obese. Pertinent negatives noted - not distressed. Skin: normal color, no rash or lesions. HEENT: EOM intact and pupils equal round. Pertinent negatives noted - no carotid bruit. Cardiovascular: regular rate and rhythm, normal S1 and S2, no rub, murmurs, or gallop. Respiratory: normal breath sounds, no wheezes or crackles. No chest wall deformity or tenderness. Abdomen: soft. Pertinent negatives noted - not tender. Extremities: no deformity, no edema or tenderness, no joint swelling or clubbing. Neurological: normal cognition and motor skills. Gait normal. No weakness or sensory deficit. PAIN ASSESSMENT: Pain Pain Level: 10 Pain Location: Back Description: Stabbing, Burning, Numbness, Tingling Duration Amount of Time: 1 Duration Units: Years Frequency: Continuous Intervention/Comfort measure: Medication VITALS: BP 118/80 Pulse 79 Temp (Src) 97.7 (Temporal) Resp 14 Ht 5' 9 (1.75m) Wt 244 lb (110.7kg) SpO2 97% BMI 36.02 kg/(m^2). Diagnostic tests reviewed for today's visit: Lab Value Units Date High Low HB 15.3 g/dL 05/15/2024 17.0 13.0 HCT 44.8 % 05/15/2024 51.0 39.0 WBC 8.61 k/uL 05/15/2024 11.00 3.70 PLT 292 k/uL 05/15/2024 400 150 NA 143 mmol/L 05/15/2024 144 136 K 4.3 mmol/L 05/15/2024 5.1 3.7 GLUC 99 mg/dL 05/15/2024 99 74 BUN 20 mg/dL 05/15/2024 24 9 CREAT 1.19 mg/dL 05/15/2024 1.22 0.73 PTSEC No results within date range. INR No results within date range. APTT No results within date range. ALT 36 U/L 05/15/2024 54 10 AST 20 U/L 05/15/2024 40 14 TBILI 0.3 mg/dL 05/15/2024 1.3 0.2 TSH No results within date range. Lab Value Units Date High Low HCGQT No results within date range. UHCG No results within date range. HCG, BODY* No results within date range. Lab Value Units Date High Low ABORHD No results within date range. ABSCREEN No results within date range. No results found for: HBA1C Recent Results (from the past 8760 hour(s)) ECG COMPLETE Collection Time: 12/06/23 2:42 PM Result Value Ventricular Rate 74 Atrial Rate 74 P-R Interval 158 QRS Duration 90 QT Interval 364 QTC Calculation (Bazett) 404 Calculated P [place] 5 Calculated R [place] -7 Calculated T [place] -1 Impression NORMAL SINUS RHYTHM MINIMAL VOLTAGE CRITERIA FOR LVH, MAY BE NORMAL VARIANT BORDERLINE ECG Recent Results (from the past 70118 hour(s)) ECHO Collection Time: 12/27/23 3:13 PM Impression CONCLUSIONS: - Technically difficult exam due to body habitus. - Exam indication: Shortness of Breath - The left ventricle is normal in size. Left ventricular systolic function is normal. EF = 58 5% (2D biplane). Normal left ventricular diastolic function. - The right ventricle is normal in size. Right ventricular systolic function is normal. - There are no significant valvular abnormalities. - The visualized aorta is borderline dilated with a maximal dimension of 3.8 cm. - Exam was compared with the prior echocardiographic exam performed on 09/18/2021, no significant change. * * * Final * * * Instructions Given to Patient: Instructions located in the after visit summary. Patient given verbal and written preop instructions and voices comprehension and compliance. SIGNATURE: Igor Quijano APRN.CNP PATIENT NAME: Jaime Vega DATE: May 15, 2024 TIME: 3:47 PM PAGER/CONTACT #: documented in this encounter [facility] 05-15-2024 Instructions Igor Quijano APRN.CNP - 05/15/2024 3:45 PM EST Images from the original note were not included. [facility] PATIENT PREOPERATIVE INSTRUCTIONS Debora Baldwin APR* has scheduled you for your procedure at this surgery center: [facility]: [phone] --[address] [place] [address]. On your scheduled day of surgery, please report to Patient Registration, ground floor Please read below carefully for your personalized instructions. Dietary Restrictions: - No solid food after midnight. - You may have 12 ounces of clear liquids (water, clear juices such as apple juice or gatorade, carbonated beverages, clear tea, black coffee, jello) until 2 hours before scheduled arrival at facility. No red/purple coloring and no creamer/sugar Medications: Unless instructed differently below, stay on all of your medications until your surgery. If you start any new medications after today's visit, please contact your surgeon. Pre-Surgery Med Instructions Medication Instructions [START ON 06/01/2024] mupirocin (BACTROBAN) 2 % ointment DIRECTED guanFACINE (TENEX) 2 mg tablet Take the day of surgery with a small sip of water omeprazole (PRILOSEC) 40 mg capsule Take the day of surgery with a small sip of water mometasone (ELOCON) 0.1 % cream Do not take the day of surgery amLODIPine (NORVASC) 5 mg tablet Take the day of surgery with a small sip of water ciprofloxacin-dexAMETHasone (CIPRODEX) 0.3-0.1 % otic suspension DIRECTED Irkczzvg-Mucvcr-KK-Thonzonium (CORTISPORIN-TC) otic suspension DIRECTED ibuprofen (MOTRIN) 600 mg tablet Stop 7 days before surgery acetaminophen (TYLENOL) 500 mg tablet IF needed QELBREE 100 mg capsule, extended release Take the day of surgery with a small sip of water melatonin 3 mg tablet Stop 7 days before surgery clotrimazole-betamethasone (LOTRISONE) cream Do not take the day of surgery fluticasone-salmeterol HFA (ADVAIR HFA) 115-21 mcg/actuation inhaler Take the day of surgery with a small sip of water albuterol (PROVENTIL) 2.5 mg /3 mL (0.083 %) nebulizer solution Take the day of surgery with a small sip of water ipratropium-albuterol (DUONEB) 0.5 mg-3 mg(2.5 mg base)/3 mL nebu Take the day of surgery with a small sip of water albuterol HFA (VENTOLIN HFA) 90 mcg/actuation inhaler Take the day of surgery with a small sip of water CPAP fluticasone (FLONASE) 50 mcg/actuation nasal spray IF needed cetirizine (ZYRTEC) 10 mg tablet IF needed If you take any medications for erectile dysfunction-Cialis (Tadalafil), Levitra, Staxyn (Vardenafil) Viagra (Sildenenafil please do not take these for 48 hours before surgery. If you start any new medications after today's visit, please contact the surgeon's office. If you are currently using a fqzq-guj-hklb injectable or oral medication for diabetes or weight loss such as Dulaglutide (Trulicity), Exenatide (Byetta, Bydureon), Liraglutide (Victoza, Saxenda), Semaglutide (Ozempic, Wegovy, Rybelsus), or Tirzepatide (Mounjaro), the medicine should be stopped at least 7 days before surgery. These medicines can cause food to remain in your stomach for a very long time and increase the risks from surgery and anesthesia. Not stopping the medication for a long enough time may result in your surgery being rescheduled. Blood Thinning Medications: - Stop NSAIDS (Ibuprofen, Advil, Aleve, Motrin, Celebrex, Mobic, etc.) 7 days before surgery, as directed by your surgeon. - Stop Aspirin 7 days before surgery, as directed by your surgeon. - Stop ALL herbal and dietary supplements 7 days before surgery. - You may take Tylenol (Acetaminophen) or any of your pain medications that do not contain aspirin or NSAIDS as needed. Important Reminders: - Candy, mints, and tobacco products are NOT permitted the morning of surgery. - Hearing aids, dentures and glasses may be worn the morning of surgery. - NO jewelry, body piercings, makeup, hairpins or contacts are to be worn the day of surgery. If you develop symptoms such as a fever, cold, or flu, or have other changes to your health within TWO DAYS of scheduled surgery or the morning of surgery, please contact the surgery center above. Personal Belongings: -Please have photo ID and insurance cards. -If you do not have a copy of advance directives on file with us, please bring a copy with you on the day of surgery. - Leave ALL valuables and money at home or with family members. - Please bring high-quality footwear, such as sneakers, to the hospital for ambulating post-surgery. For Outpatient Procedures: - YOU MUST HAVE A RESPONSIBLE BOW STAPLER TAKE YOU HOME. A CALENDERER OR LABORATORY TECHNOLOGY TEACHER CANNOT BE MADE A RESPONSIBLE BOW STAPLER. - We recommend that a responsible person stays with you overnight to take care of you. - You cannot stay in a hotel alone after outpatient surgery. You will not be permitted to have your surgery, if you do not have someone to take care of you. Arrival Time for Surgery: - The Surgery Center or hospital where you are having surgery will call the afternoon before surgery (or Wednesday for Wednesday surgery) with a scheduled arrival time. - If you have not heard by 4 pm, please contact the surgery center above. Please be aware that emergency situations arise, which may delay or change your surgical time. If this happens, we will notify you as soon as possible and regret any inconvenience. If you already have an Advance Directive, please fax a copy to [phone] or email to for it to be added to your chart. If you do not have an Advance Directive, you can find the appropriate form and more information at [email or web address]. We recommend that you complete the Advance Directive form found on the website and bring it with you the day of your surgery. It can be witnessed and scanned into your chart that day. Igor Quijano APRN.GRAIN DRIER documented in this encounter [facility] 05-15-2024 Note IMPRESSION: Progressive degenerative changes most pronounced at L4-L5 with irregular multifocal posterior disc herniation contributing to advanced lateral recess stenosis with crowding/compression of the bilateral descending L5 nerve roots, moderate to advanced central stenosis, as well as moderate left foraminal stenosis at this level. Recommend neurosurgical evaluation. Anatomic Lumbar Variant: Transitional L5 vertebra. L4-5 is considered the level of the iliac crest and there are 5 lumbar-type vertebrae. Optical Advisor: PSCB Transcribe Date/Time: May 15 2024 2:50P Dictated by : MOJGAN MENDOZA MD This examination was interpreted and the report reviewed and electronically signed by: MOJGAN MENDOZA MD on May 15 2024 2:56PM EST DIVISION OF RADIOLOGY 05-15-2024 History of Present illness Narrative Radiology Service Progress Note PATIENT NAME: Jaime Vega DATE OF SERVICE: May 15, 2024 TIME: 2:30 PM PATIENT IDENTITY VERIFICATION COMPLETED USING TWO (2) IDENTIFIERS: Name and Date of confirmed by patient verbally. FALL SCREENING: Has the patient had 2 falls in the last year or 1 fall with injury or currently using an Ambulatory Assistive Device (Walker, Cane, Wheelchair, Crutches, etc.)? No PATIENT GENDER DATA: Female. status: : No status: NO. PATIENT RELEVANT IMPLANT DATA REVIEWED: Yes PATIENT PRESENTS WITH AN IMPLANTABLE OR ATTACHED REAL TIME ANALYST: No RADIOLOGY DEPARTMENT: MR; Exam(s) Completed: Spine: Lumbar spine PERIPHERAL IV DATA: Not applicable SIGNED BY: RT Tariq(R) May 15, 2024 2:30 PM documented in this encounter [facility] 05-15-2024 Note HNO ID: [id number] Author: ART AMBROSE RT(R) Service: ? Author Type: Technologist Type: Progress Notes Filed: 05/15/2024 14:30 Note Text: Radiology Service Progress Note PATIENT NAME: Jaime Vega DATE OF SERVICE: May 15, 2024 TIME: 2:30 PM PATIENT IDENTITY VERIFICATION COMPLETED USING TWO (2) IDENTIFIERS: Name and Date of confirmed by patient verbally. FALL SCREENING: Has the patient had 2 falls in the last year or 1 fall with injury or currently using an Ambulatory Assistive Device (Walker, Cane, Wheelchair, Crutches, etc.)? No PATIENT GENDER DATA: Female. status: : No status: NO. PATIENT RELEVANT IMPLANT DATA REVIEWED: Yes PATIENT PRESENTS WITH AN IMPLANTABLE OR ATTACHED REAL TIME ANALYST: No RADIOLOGY DEPARTMENT: MR; Exam(s) Completed: Spine: Lumbar spine PERIPHERAL IV DATA: Not applicable SIGNED BY: RT Tariq(R) May 15, 2024 2:30 PM [facility] 04-24-2024 Telephone encounter Note Received call from [facility] pre-access department that office notes from 04/17/[address] Brown in order to move forward with prior authorization for Lumbar MRI. MRI is scheduled for 05/02/2024. Routing to Provider for review. Juana Zelaya [facility] 04-24-2024 Miscellaneous Notes Received call from [facility] pre-access department that office notes from 04/17/[address] Brown in order to move forward with prior authorization for Lumbar MRI. MRI is scheduled for 05/02/2024. Routing to Provider for review. Juana Zelaya documented in this encounter [facility] 04-17-2024 Nurse Note Neuro SPINE CARE COORDINATION PRE-OP VISIT Met with patient for pre op education. Given both written and verbal instructions re : Skin prep, wound care, pain management and post op restrictions. Provided to patient: [facility] Surgery Guide, skin prep supplies, Spine Surgery Pre/post op education packet. Yes Reviewed with patient to report to the registration desk for surgery? Yes. Reviewed with the patient that a surgery business process representative will call the working day prior to surgery to confirm surgery time and arrival time? Yes. Patient aware eat nothing after midnight prior to surgery, clear liquids only until 2 hours before report time. Yes. Patient aware surgery will be OUTPATIENT. Discussed care post discharge : Self care. Does patient have transportation to and from surgery ? Yes. Falls Education provided ? Yes Nasal swab obtained ? No. Patient instructed in mupirocin treatment : Prescription will be sent to preferred pharmacy. Questions answered and patient voice(s) understanding via teach back. Additional Comments : Post -op Support. Genna Jalloh RN Neuro SPINE CARE COORDINATION SURGERY SCHEDULING Patient accepts surgery date of 06/06/[address] Brown. Planned procedure is right L4-5 microdiscectomy. PACC will be scheduled by office. Healthquest : N/A Medications reviewed : Yes. Meds to be stopped prior to surgery : NSAIDS. Additional pre op clearances needed : none. Any implanted devices : No. Transplant History No. Patient will get optimization lab work : To be completed at [facility]. Questions answered. Patient verbalizes understanding via teach back. Additional comments : Informed to call with any questions or concerns. Genna Jalloh RN [facility] 04-17-2024 Nurse Note Neuro SPINE CARE COORDINATION PRE-OP VISIT Met with patient for pre op education. Given both written and verbal instructions re : Skin prep, wound care, pain management and post op restrictions. Provided to patient: [facility] Surgery Guide, skin prep supplies, Spine Surgery Pre/post op education packet. Yes Reviewed with patient to report to the registration desk for surgery? Yes. Reviewed with the patient that a surgery business process representative will call the working day prior to surgery to confirm surgery time and arrival time? Yes. Patient aware eat nothing after midnight prior to surgery, clear liquids only until 2 hours before report time. Yes. Patient aware surgery will be OUTPATIENT. Discussed care post discharge : Self care. Does patient have transportation to and from surgery ? Yes. Falls Education provided ? Yes Nasal swab obtained ? No. Patient instructed in mupirocin treatment : Prescription will be sent to preferred pharmacy. Questions answered and patient voice(s) understanding via teach back. Additional Comments : Post -op Support. Genna Jalloh RN Neuro SPINE CARE COORDINATION SURGERY SCHEDULING Patient accepts surgery date of 06/06/[address] Brown. Planned procedure is right L4-5 microdiscectomy. PACC will be scheduled by office. Healthquest : N/A Medications reviewed : Yes. Meds to be stopped prior to surgery : NSAIDS. Additional pre op clearances needed : none. Any implanted devices : No. Transplant History No. Patient will get optimization lab work : To be completed at [facility]. Questions answered. Patient verbalizes understanding via teach back. Additional comments : Informed to call with any questions or concerns. Genna Jalloh RN documented in this encounter [facility] 04-17-2024 History of Present illness Narrative Images from the original note were not included. SPINE SURGERY NEW PATIENT This is an in-person visit. PCP: Conor Pantoja MD REFERRING PROVIDER: Risa Steiner PA-C SUBJECTIVE HISTORY OF PRESENT ILLNESS: Jaime Vega is a 43 year old male presenting alone. CHIEF COMPLAINT: lower back pain with radiation into right leg into top of foot PRECIPITATING EVENT: Injury at home. DURATION OF SYMPTOMS: Greater Than 1 Year Complaints of lower back pain with radiation into right leg into top of foot which started 2 years ago when he fell off a ladder. The pain averages around 8 of 10. It is stabbing quality. Sports activity partially with rest. No left sided symptoms. He has had two Injections in the past which did not provide any relief and only lasted for few hours. Denies tobacco use. PAIN EVALUATION 04/15/2024 1249 04/17/2024 0839 Pain Level: -- 8 Pain Location: Back-Lower Back-Lower Description: Aching;Burning;Cramping;Cutting;Numbne ss;Pressure;Pulsating;Radiating;Sharp; Sore;Spasm;Stabbing;Stiffness;Tenderne ss;Throbbing;Tingling Stabbing;Shooting;Burning Duration Amount of Time: 24 -- Duration Units: Weeks -- Frequency: Continuous Continuous Intervention/Comfort measure: Medication;Pillow support;Positioning -- Pain Radiation: to the right leg into right foot. Aggravating Factors: Standing, Walking Alleviating Factors: None Pain Ratio: Pain in the back is greater than in the leg DERMATOMAL DISTRIBUTION: Right: L5 AMBULATORY STATUS: Independent Community Distances ANTIPLATELET OR ANTICOAGULATION STATUS: No PREVIOUS CONSERVATIVE TREATMENTS: PT- 2022 Tylenol Ibuprofen RIGHT L4-5 TFESI - 09/03/2023- no improvement lasted few hours. 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) Mixed Hyperlipidemia Nicotine Dependence Bulging Lumbar Disc Spinal Stenosis of Lumbar Region Without Neurogenic Claudication Primary Hypertension Enlarged Thoracic Aorta (Hcc) PAST MEDICAL HISTORY Diagnosis Date Abdominal pain Anxiety Asthma Depression VILLEGAS (dyspnea on exertion) HTN (hypertension) Mixed hyperlipidemia Obesity Primary cardiomyopathy (HCC) Sleep apnea Spinal stenosis PAST SURGICAL HISTORY Procedure Laterality Date COLONOSCOPY 06/15/2022 repeat in 1 year with MAC COLONOSCOPY FLX DX W/COLLJ SPEC WHEN PFRMD 08/21/2015 Colonoscopy with mac ESOPHAGOGASTRODUODENOSCOPY TRANSORAL DIAGNOSTIC 08/21/2015 EGD with mac PAST SURGICAL HISTORY OF fatty cyst removed from stomach PAST SURGICAL HISTORY OF wisdom teeth FAMILY HISTORY Problem Relation Age of Onset Heart Father Colon Cancer Father other (colitis) Father other (autism) Son GI issues/ear problems/adhd Social History Tobacco Use Smoking status: Never Smokeless tobacco: Former Types: Chew Quit date: 12/15/2023 Vaping Use Vaping status: Never Used Substance Use Topics Alcohol use: No Drug use: No ALLERGIES Allergen Reactions Acetaminophen-Codei* Rash Seasonal Allergies Unknown CATS, DOGS, COCKROACHES, MOLDS, TREES, GRASSES, WEEDS AND RAGWEED VERIFIED BY SKIN TESTING Darren [[place]* Other: See Comments irritable MEDICATIONS: guanFACINE (TENEX) 2 mg tablet omeprazole (PRILOSEC) 40 mg capsule Take 1 capsule by mouth once daily. mometasone (ELOCON) 0.1 % cream Apply 1 application to affected area once daily. amLODIPine (NORVASC) 5 mg tablet Take 1 tablet by mouth once daily. ciprofloxacin-dexAMETHasone (CIPRODEX) 0.3-0.1 % otic suspension Use 4 Drops in both ears two times a day. Psmjovtq-Afurxz-OU-Thonzonium (CORTISPORIN-TC) otic suspension Use 3 Drops in the ears four times daily. ibuprofen (MOTRIN) 600 mg tablet Take 600 mg by mouth once daily as needed for pain (pain). Takes 600-800mg dose acetaminophen (TYLENOL) 500 mg tablet Take 1,000 mg by mouth as needed for pain. QELBREE 100 mg capsule, extended release Take 200 mg by mouth every morning. Take a total of 500 mg; two 200 mg and one 100 mg melatonin 3 mg tablet TAKE 1 TABLET APPROXIMATELY 7PM NIGHTLY. clotrimazole-betamethasone (LOTRISONE) cream Apply to affected area twice daily. APPLY TO AFFECTED AREA albuterol (PROVENTIL) 2.5 mg /3 mL (0.083 %) nebulizer solution Use 3 mL via nebulizer every 4 hours as needed for wheezing/shortness of breath. Use over 5-15minutes. ipratropium-albuterol (DUONEB) 0.5 mg-3 mg(2.5 mg base)/3 mL nebu Inhale 3 mL as instructed every 6 hours as needed (wheezing). albuterol HFA (VENTOLIN HFA) 90 mcg/actuation inhaler INHALE 2 PUFFS BY MOUTH DIRECTED EVERY 4 HOURS NEEDED FOR WHEEZING OR SHORTNESS OF BREATH CPAP Initiate Auto PAP @ 5-20 cm of water with humidification. Mask (per patient preference) optional chin strap (if indicated) , filters, tubing, humidifier and lifetime supplies. fluticasone (FLONASE) 50 mcg/actuation nasal spray Use 2 Sprays in each nostril once daily. cetirizine (ZYRTEC) 10 mg tablet Take 1 tablet by mouth once daily as needed. guanFACINE (TENEX) 1 mg tablet Take 2 mg by mouth daily at bedtime. (Patient not taking: Reported on 04/17/2024) fluticasone-salmeterol HFA (ADVAIR HFA) 115-21 mcg/actuation inhaler Inhale 2 Puffs as instructed twice daily. Rinse mouth after use. REVIEW OF SYSTEMS: PAIN ASSESSMENT: See HPI. GENERAL: Denies fever, chills malaise and weight loss. HEENT: No recent change in vision or hearing. CARDIOVASCULAR: Denies chest pain, history of A-fib, valvular disease, or pacemaker/ICD. RESPIRATORY: Denies SOB, sputum production, and hemoptysis. GI: Denies GI ulcers, inflammatory disease, or liver disease. : Denies change in frequency or urgency, kidney disease, and burning with urination. MUSCULOSKELETAL: Positive for low back pain with radiation into RLE SKIN: Denies rash or itching. PSYCHOLOGICAL: Denies uncontrolled depression or anxiety. NEURO: Denies CVA, seizures, headaches. ENDOCRINE: Denies diabetes, thyroid disease. HEMATOLOGY/LYMPHOLOGY: Denies cancer, bleeding or clotting disorders, anemia,and DVT's. ALLERGIC/IMMUNOLOGICAL: Denies risks for infection, or recent MRSA infections. Patient Entered Questionnaires 05/24/2023 Spine Questions Pain Location: Leg Pain Duration: 6 months - 1 year Pain over last 6 months: Every day or nearly every day in the past 6 months Symptoms from neck/cervical spine: Yes Employment Status: Working now Involved in law suit/legal claim: No 05/24/2023 Neck Questionnaires Benzel Modified DIANE Score 16 (Mild Myelopathy Symptoms) PROMIS Score Percentiles 02/16/2023 05/24/2023 Physical Health Physical Function Percentile 12 12 Sleep Percentile 12 Fatigue Percentile 8 Pain Interference Percentile 5 05/24/2023 PROMIS SOCIAL ROLE SCORE Social Role Satisfaction Percentile 7 05/12/2020 11/06/2022 02/16/2023 PROMIS Global Health Scale Physical Health Percentile 15 10 7 Mental Health Percentile 13 5 5 Percentiles provide an indication of how the patient's score ranks in relation to the general population. Higher percentile rankings indicate better function/quality of life. 50th percentile is the average of the general population and indicates half of respondents had a worse score. Depression Screenin05/12/2020 PHQ-9 Score 10 05/12/2020 PHQ-9 Self-harm Question Question 9 Not at all PHQ-9 Self-Harm (Item 9) response options: 0 Not at all 1 Several days 2 More than half the days 3 Nearly every day PHQ-9 Levels: 0-4 No to mild depression 5-9 Mild depression 10-14 Moderate depression 15-19 Moderately severe depression 20-27 Severe depression OBJECTIVE: PHYSICAL EXAM BP 147/92 Pulse 95 Ht 175.3 cm (5' 9) Wt 111.1 kg (244 lb 14.9 oz) SpO2 98% BMI 36.17 kg/m Oriented x3 PERRL FS Motor: UE D 5/5, B 5/5, T 5/5, G 5/5, HI 5/5 LE HF 5/5, KE 5/5, DF 5/5, PF 5/5, EHL 5/5 Gait is normal Reflexes 2+ NEURO TESTS: None DATA REVIEW MRI lumbar spine shows predominant L4-5 central paracentral disc herniation with associated moderate severe lateral recess stenosis bilaterally ASSESSMENT/PLAN (M54.16) Lumbar radiculopathy (M48.061) Spinal stenosis of lumbar region without neurogenic claudication (M48.062) Spinal stenosis of lumbar region with neurogenic claudication (M51.369) Bulging lumbar disc Jaime Vega is clinically indicated and wishes to pursue Right L4-5 Lumbar microdiscectomy Patient predominance in terms of his right-sided L5 radiculopathy in setting of L4-5 disc bulge/herniation. Patient failed conservative management. Symptoms been debilitating progressing over time. For the above reason I did recommend patient proceed with L4-5 right-sided microdiscectomy. I did discuss patient risk and benefit would like to proceed The risks, benefits, and anticipated outcomes of the procedure/treatment/test, the alternatives to the procedure/treatment/test and their risks and benefits, and the roles and tasks of the personnel to be involved were discussed with the patient or the patient s personal senior customer service representative. The patient has elected to schedule surgery at this time or intends to call the office with a surgical date. Shared decision making occurred while obtaining informed consent. 1. Imaging: Lumbar MRI Without Contrast Symptoms of neuro deficit or red flag symptoms listed in HPI 2. Follow up: Pre-Op Imaging Ordered: Lumbar MRI Medical Decision Making: Problems: Moderate: 2+ stable chronic illnesses Data: Independent interpretation of test from other physician/QHCP Risk: Moderate: Moderate risk from testing/treatment Medical Decision Making Level: 4 - Moderate The documentation for this note was completed by Alyssa Costello acting as scribe for Silas Brown MD. April 17, 2024 9:27 AM. SIGNATURE: Silas Brown MD PATIENT NAME: Jaime Vega DATE: April 17, 2024 TIME: 9:03 AM PAGER: documented in this encounter [facility] 04-17-2024 Note HNO ID: [id number] Author: SILAS BROWN MD Service: ? Author Type: Physician Type: Progress Notes Filed: 05/09/2024 15:58 Note Text: SPINE SURGERY NEW PATIENT This is an in-person visit. PCP: Conor Pantoja MD REFERRING PROVIDER: Risa Steiner PA-C SUBJECTIVE HISTORY OF PRESENT ILLNESS: Jaime Vega is a 43 year old male presenting alone. CHIEF COMPLAINT: lower back pain with radiation into right leg into top of foot PRECIPITATING EVENT: Injury at home. DURATION OF SYMPTOMS: Greater Than 1 Year Complaints of lower back pain with radiation into right leg into top of foot which started 2 years ago when he fell off a ladder. The pain averages around 8 of 10. It is stabbing quality. Sports activity partially with rest. No left sided symptoms. He has had two Injections in the past which did not provide any relief and only lasted for few hours. Denies tobacco use. PAIN EVALUATION 04/15/2024 1249 04/17/2024 0839 Pain Level: -- 8 Pain Location: Back-Lower Back-Lower Description: Aching;Burning;Cramping;Cutting;Numbne ss;Pressure;Pulsating;Radiating;Sharp; Sore ;Spasm;Stabbing;Stiffness;Tenderness;T hrobbing;Tingling Stabbing;Shooting;Burning Duration Amount of Time: 24 -- Duration Units: Weeks -- Frequency: Continuous Continuous Intervention/Comfort measure: Medication;Pillow support;Positioning -- Pain Radiation: to the right leg into right foot. Aggravating Factors: Standing, Walking Alleviating Factors: None Pain Ratio: Pain in the back is greater than in the leg DERMATOMAL DISTRIBUTION: Right: L5 AMBULATORY STATUS: Independent Community Distances ANTIPLATELET OR ANTICOAGULATION STATUS: No PREVIOUS CONSERVATIVE TREATMENTS: PT- 2022 Tylenol Ibuprofen RIGHT L4-5 TFESI - 09/03/2023- no improvement lasted few hours. 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) Mixed Hyperlipidemia Nicotine Dependence Bulging Lumbar Disc Spinal Stenosis of Lumbar Region Without Neurogenic Claudication Primary Hypertension Enlarged Thoracic Aorta (Hcc) PAST MEDICAL HISTORY Diagnosis Date Abdominal pain Anxiety Asthma Depression VILLEGAS (dyspnea on exertion) HTN (hypertension) Mixed hyperlipidemia Obesity Primary cardiomyopathy (HCC) Sleep apnea Spinal stenosis PAST SURGICAL HISTORY Procedure Laterality Date COLONOSCOPY 06/15/2022 repeat in 1 year with MAC COLONOSCOPY FLX DX W/COLLJ SPEC WHEN PFRMD 08/21/2015 Colonoscopy with mac ESOPHAGOGASTRODUODENOSCOPY TRANSORAL DIAGNOSTIC 08/21/2015 EGD with mac PAST SURGICAL HISTORY OF fatty cyst removed from stomach PAST SURGICAL HISTORY OF wisdom teeth FAMILY HISTORY Problem Relation Age of Onset Heart Father Colon Cancer Father other (colitis) Father other (autism) Son GI issues/ear problems/adhd Social History Tobacco Use Smoking status: Never Smokeless tobacco: Former Types: Chew Quit date: 12/15/2023 Vaping Use Vaping status: Never Used Substance Use Topics Alcohol use: No Drug use: No ALLERGIES Allergen Reactions Acetaminophen-Codei* Rash Seasonal Allergies Unknown CATS, DOGS, COCKROACHES, MOLDS, TREES, GRASSES, WEEDS AND RAGWEED VERIFIED BY SKIN TESTING Darren [[place]* Other: See Comments irritable MEDICATIONS: guanFACINE (TENEX) 2 mg tablet omeprazole (PRILOSEC) 40 mg capsule Take 1 capsule by mouth once daily. mometasone (ELOCON) 0.1 % cream Apply 1 application to affected area once daily. amLODIPine (NORVASC) 5 mg tablet Take 1 tablet by mouth once daily. ciprofloxacin-dexAMETHasone (CIPRODEX) 0.3-0.1 % otic suspension Use 4 Drops in both ears two times a day. Huoougsf-Dtzjvu-SS-Thonzonium (CORTISPORIN-TC) otic suspension Use 3 Drops in the ears four times daily. ibuprofen (MOTRIN) 600 mg tablet Take 600 mg by mouth once daily as needed for pain (pain). Takes 600-800mg dose acetaminophen (TYLENOL) 500 mg tablet Take 1,000 mg by mouth as needed for pain. QELBREE 100 mg capsule, extended release Take 200 mg by mouth every morning. Take a total of 500 mg; two 200 mg and one 100 mg melatonin 3 mg tablet TAKE 1 TABLET APPROXIMATELY 7PM NIGHTLY. clotrimazole-betamethasone (LOTRISONE) cream Apply to affected area twice daily. APPLY TO AFFECTED AREA albuterol (PROVENTIL) 2.5 mg /3 mL (0.083 %) nebulizer solution Use 3 mL via nebulizer every 4 hours as needed for wheezing/shortness of breath. Use ov (more content not included)... [facility] 02-28-2024 Telephone encounter Note I believe that Dr. Miguelito Campos would do a very fine job evaluating and treating Jaime's lumbar issues. Dr. Campos primarily works out of the [place] location. Please encourage him to follow up as previously recommended with a review of the various [facility] physicians who could help him. I gave him the following tool to help: How to review your options for a [facility] physician referral: Go to [email or web address] and look for the Find a Doctor tab right underneath the [facility] logo in the top left corner of the page. Click on that and then enter lumbar spine surgery in the search field. There should be quite a few different physicians in the [facility] area for you to review their credentials, locations of practice, educational background, and specialties (specific problems that they treat). The provider's scheduling phone number will be listed there near their picture and name. Risa Steiner PA-C [facility] Work Phone: 02-28-2024 Miscellaneous Notes I believe that Dr. Miguelito Campos would do a very fine job evaluating and treating Jaime's lumbar issues. Dr. Campos primarily works out of the [place] location. Please encourage him to follow up as previously recommended with a review of the various [facility] physicians who could help him. I gave him the following tool to help: How to review your options for a [facility] physician referral: Go to [email or web address] and look for the Find a Doctor tab right underneath the [facility] logo in the top left corner of the page. Click on that and then enter lumbar spine surgery in the search field. There should be quite a few different physicians in the [facility] area for you to review their credentials, locations of practice, educational background, and specialties (specific problems that they treat). The provider's scheduling phone number will be listed there near their picture and name. Risa Steiner PA-C MARV: 02/17/2024 w/Risa Steiner PA-C PLAN: The patient has undergone a fairly extensive course of supervised PT, medications both OTC and prescribed, and testing as well as spinal injections. He has gotten mild to moderate relief from the injections but is still struggling to complete his activities of daily living and driving and working and activities around his own home. He has a friend [facility] who did amazingly well following a recent lumbar fusion procedure and he wants to check out the physician that did her procedure. He will let me know if he needs further referral in the [facility] system and I gave him a tool to use on his home-going instructions to find a [facility] neurosurgeon as well. Routing to provider for assistance. documented in this encounter [facility] 02-28-2024 Telephone encounter Note MARV: 02/17/2024 w/Risa Steiner PA-C PLAN: The patient has undergone a fairly extensive course of supervised PT, medications both OTC and prescribed, and testing as well as spinal injections. He has gotten mild to moderate relief from the injections but is still struggling to complete his activities of daily living and driving and working and activities around his own home. He has a friend at [facility] who did amazingly well following a recent lumbar fusion procedure and he wants to check out the physician that did her procedure. He will let me know if he needs further referral in the [facility] system and I gave him a tool to use on his home-going instructions to find a [facility] neurosurgeon as well. Routing to provider for assistance. [facility] 02-17-2024 Instructions Risa Steiner PA-C - 02/17/2024 4:09 PM EDT How to review your options for a [facility] physician referral: Go to [email or web address] and look for the Find a Doctor tab right underneath the [facility] logo in the top left corner of the page. Click on that and then enter lumbar spine surgery in the search field. There should be quite a few different physicians in the [facility] area for you to review their credentials, locations of practice, educational background, and specialties (specific problems that they treat). The provider's scheduling phone number will be listed there near their picture and name. documented in this encounter [facility] 02-17-2024 History of Present illness Narrative [facility] Steiner [facility] [address] [address] Dear Conor Pantoja MD, Jaime Lomax Gary is a pleasant 43 year old individual who comes in to the office on 02/17/2024 for follow-up regarding the Lumbar spine. Has lower back pain, right hip, right leg pain - and pain goes down to the toes. Has shooting pain between the big toe and second one. Has cramping and numbness in the right lower leg. Level of the pain is at 7/10. Patient is here alone today. Subjective: Compared to the last visit, symptoms have been worse. Mr. Vega is no better at all. Gabapentin 600mg TID didn't seem to help him much, so he weaned. ROS: Since last visit-patient DENIES fevers, chills, night sweats, unexpected weight loss or gain, abdominal pain, progressive weakness, paralysis, loss of bowel/bladder control, saddle numbness, stumbling gait, loss of coordination. and Since last visit--patient indicates NEW presence of: numbness in the leg and foot. Bladder urgency Current Outpatient Medications Medication Sig Dispense Refill omeprazole (PRILOSEC) 40 mg capsule Take 1 capsule by mouth once daily. 30 capsule 5 mometasone (ELOCON) 0.1 % cream Apply 1 application to affected area once daily. 45 g 0 amLODIPine (NORVASC) 5 mg tablet Take 1 tablet by mouth once daily. 90 tablet 3 ciprofloxacin-dexAMETHasone (CIPRODEX) 0.3-0.1 % otic suspension Use 4 Drops in both ears two times a day. 7.5 mL 0 Rcqxyobz-Sbavoo-UD-Thonzonium (CORTISPORIN-TC) otic suspension Use 3 Drops in the ears four times daily. 10 mL 0 ibuprofen (MOTRIN) 600 mg tablet Take 600 mg by mouth once daily as needed for pain (pain). Takes 600-800mg dose acetaminophen (TYLENOL) 500 mg tablet Take 1,000 mg by mouth as needed for pain. QELBREE 100 mg capsule, extended release Take 200 mg by mouth every morning. melatonin 3 mg tablet TAKE 1 TABLET APPROXIMATELY 7PM NIGHTLY. 30 tablet 2 clotrimazole-betamethasone (LOTRISONE) cream Apply to affected area twice daily. APPLY TO AFFECTED AREA 45 g 4 guanFACINE (TENEX) 1 mg tablet Take 1 mg by mouth daily at bedtime. fluticasone-salmeterol HFA (ADVAIR HFA) 115-21 mcg/actuation inhaler Inhale 2 Puffs as instructed twice daily. Rinse mouth after use. 12 g 11 albuterol (PROVENTIL) 2.5 mg /3 mL (0.083 %) nebulizer solution Use 3 mL via nebulizer every 4 hours as needed for wheezing/shortness of breath. Use over 5-15minutes. 30 Vial 1 ipratropium-albuterol (DUONEB) 0.5 mg-3 mg(2.5 mg base)/3 mL nebu Inhale 3 mL as instructed every 6 hours as needed (wheezing). 30 mL 11 albuterol HFA (VENTOLIN HFA) 90 mcg/actuation inhaler INHALE 2 PUFFS BY MOUTH DIRECTED EVERY 4 HOURS NEEDED FOR WHEEZING OR SHORTNESS OF BREATH 18 g 3 CPAP Initiate Auto PAP @ 5-20 cm of water with humidification. Mask (per patient preference) optional chin strap (if indicated) , filters, tubing, humidifier and lifetime supplies. 1 Device 0 fluticasone (FLONASE) 50 mcg/actuation nasal spray Use 2 Sprays in each nostril once daily. 1 Bottle 11 cetirizine (ZYRTEC) 10 mg tablet Take 1 tablet by mouth once daily as needed. 30 tablet 11 gabapentin (NEURONTIN) 300 mg capsule Take 2 capsules by mouth three times a day for 90 days. (Patient not taking: Reported on 02/17/2024) 180 capsule 2 No current facility-administered medications for this visit. Exam: Blood pressure 121/80, pulse 68, height 175.3 cm (5' 9), weight 108.5 kg (239 lb 3.2 oz), SpO2 98%. Body mass index is 35.32 kg/m . Station and Gait: favoring the right lower extremity Range of Motion: diminished flexion and extension of the spine and increased pain with right sidebending Motor: RIGHT EHL weakness Sensory: N/T in RIGHT L5 dermatome Pain on Palpation: RIGHT PSIS Imaging: The following study/studies were reviewed with the patient during the visit: 05/20/2023 lumbar MRI study and 04/19/2023 lumbar plain radiographs. These studies both reflect L4-5 severe DDD with disc bulge noted on the MRI. There is foraminal narrowing on both sides but strangely, the LEFT side narrowing is a little worse than the symptomatic RIGHT side., No new imaging studies were reviewed during this office visit. Assessment/Plan: Encounter Diagnosis ICD-10-CM 1. Lumbar radiculopathy M54.16 CONSULT TO NEUROSURGERY 2. Spinal stenosis of lumbar region without neurogenic claudication M48.061 CONSULT TO NEUROSURGERY 3. Spinal stenosis of lumbar region with neurogenic claudication M48.062 CONSULT TO NEUROSURGERY 4. Bulging lumbar disc M51.36 CONSULT TO NEUROSURGERY RTC: on an as-needed basis (PRN) Other/Discussion: The patient has undergone a fairly extensive course of supervised PT, medications both OTC and prescribed, and testing as well as spinal injections. He has gotten mild to moderate relief from the injections but is still struggling to complete his activities of daily living and driving and working and activities around his own home. He has a friend at [facility] who did amazingly well following a recent lumbar fusion procedure and he wants to check out the physician that did her procedure. He will let me know if he needs further referral in the [facility] system and I gave him a tool to use on his home-going instructions to find a [facility] neurosurgeon as well. Time spent: 36 minutes today with this patient visit. This includes sxfz-di-[id number] time, review of chart records regarding conservative care history, spine-pertinent imaging, and communication/care coordination with referring provider, problem-specific history-taking and counseling/education regarding treatment options. This document has been created with the use of voice recognition technology. It may contain inaccuracies: (e.g. misspellings, inaccurate syntax or word sense) that have escaped review. Radha Hill MA documented in this encounter [facility] 02-03-2024 Telephone encounter Note Tried calling the patient, no answer. Message was sent to the patient via [employer] Need medication confirmation. Is patient still takes Gabapentin? Is it still helping him ? Waiting for his response Radha Hill MA [facility] 02-03-2024 Miscellaneous Notes Tried calling the patient, no answer. Message was sent to the patient via [employer] Need medication confirmation. Is patient still takes Gabapentin? Is it still helping him ? Waiting for his response Radha Hill MA Patient has been identified by name and date of : Yes RX INSTRUCTIONS: Pharmacy initiated this request. No need to notify patient. Patient phones requesting refills as follows: Requested Prescriptions Pending Prescriptions Disp Refills gabapentin (NEURONTIN) 300 mg capsule [Pharmacy Med Name: GABAPENTIN 300 MG CAPSULE] 180 capsule 2 Sig: Take 2 capsules by mouth three times a day for 90 days. Please review and advise. Radha Hill MA documented in this encounter [facility] 02-03-2024 Telephone encounter Note Patient has been identified by name and date of : Yes RX INSTRUCTIONS: Pharmacy initiated this request. No need to notify patient. Patient phones requesting refills as follows: Requested Prescriptions Pending Prescriptions Disp Refills gabapentin (NEURONTIN) 300 mg capsule [Pharmacy Med Name: GABAPENTIN 300 MG CAPSULE] 180 capsule 2 Sig: Take 2 capsules by mouth three times a day for 90 days. Please review and advise. Radha Hill MA [facility] 02-01-2024 Telephone encounter Note Prescription Refill Information The patient has been identified by name and date of : Yes Caregiver verified no other encounters exist for this prescription request: Yes Caregiver confirmed with patient/requestor that no other refills are due, in the near future, with this provider at this time: Yes The last office visit in the department: 12/29/23 with PCP Does the patient have a future office visit with this provider/department: Yes-07/17/24 6 month F/U with PCP Requested Prescriptions Pending Prescriptions Disp Refills omeprazole (PRILOSEC) 40 mg capsule 30 capsule 5 Sig: Take 1 capsule by mouth once daily. Leanne Finney MA February 01, 2024 8:18 AM [facility] 02-01-2024 Miscellaneous Notes Prescription Refill Information The patient has been identified by name and date of : Yes Caregiver verified no other encounters exist for this prescription request: Yes Caregiver confirmed with patient/requestor that no other refills are due, in the near future, with this provider at this time: Yes The last office visit in the department: 12/29/23 with PCP Does the patient have a future office visit with this provider/department: Yes-07/17/24 6 month F/U with PCP Requested Prescriptions Pending Prescriptions Disp Refills omeprazole (PRILOSEC) 40 mg capsule 30 capsule 5 Sig: Take 1 capsule by mouth once daily. Leanne Finney MA February 01, 2024 8:18 AM documented in this encounter [facility] 01-26-2024 Telephone encounter Note Patient returned call to [facility] to review test results. Patient verbalizes understanding. Jackelin Morales LPN [facility] 01-26-2024 Miscellaneous Notes Patient returned call to [facility] to review test results. Patient verbalizes understanding. Jackelin Morales LPN Left message for Mr Vega requesting return call to [facility] for test results. [facility] phone number provided on message.Mehul Gonzalez LPN Left message for Mr Vega requesting return call to [facility] for test results. [facility] phone number provided on message.Mehul Gonzalez LPN ----- Message from Maverick Penn APRN.GRAIN DRIER sent at 01/20/2024 3:53 PM EDT ----- Please call the patient and report carotid ultrasound did not reveal any significant stenosis. Maverick Penn APRN.GRAIN DRIER documented in this encounter [facility] 01-26-2024 Telephone encounter Note See other TC. Patient had not been using Advair regularly but per Dr. Pantoja's instructions via other TC patient to use daily. He verbalized understanding and states going to use daily. Smiley Parks MA [facility] 01-26-2024 Miscellaneous Notes See other TC. Patient had not been using Advair regularly but per Dr. Pantoja's instructions via other TC patient to use daily. He verbalized understanding and states going to use daily. Smiley Parks MA Left message to speak with nurse. Pfts do shows some asthmatic changes. Is he using his advair regularly? documented in this encounter [facility] 01-26-2024 Telephone encounter Note Left message for Mr Vega requesting return call to [facility] for test results. [facility] phone number provided on message.Mehul Gonzalez LPN [facility] 01-21-2024 Telephone encounter Note Patient calling with return call/Message from office: Patient called back and given message from office note dated 01/21/24. Pt verbalized understanding of message given. Patient denies any new or worsening symptoms of which a provider is not aware:Yes Patient received PCP message and states he uses the Advair 2-3 times per week. Will alert PCP . [facility] 01-21-2024 Miscellaneous Notes Patient calling with return call/Message from office: Patient called back and given message from office note dated 01/21/24. Pt verbalized understanding of message given. Patient denies any new or worsening symptoms of which a provider is not aware:Yes Patient received PCP message and states he uses the Advair 2-3 times per week. Will alert PCP . documented in this encounter [facility] 01-21-2024 Telephone encounter Note Left message to speak with nurse. [facility] 01-21-2024 Telephone encounter Note Pfts do shows some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 detail. BP Controlled (<130/80) Never done Colorectal Cancer Screening due on 06/15/2023-rec VITALS: BP 132/78 Pulse 91 Ht 175.3 cm (5' 9) Wt 111.6 kg (246 lb) SpO2 99% BMI 36.33 kg/m Last 4 Encounter Wt Readings: Date: Wt: 12/29/2023 111.6 kg (246 lb) 12/06/2023 112 kg (247 lb) 11/22/2023 110.7 kg (244 lb) 09/17/2023 109.3 kg (241 lb) PHYSICAL EXAMINATION: General appearance: Well appearing, alert, in no acute distress, well-hydrated, well nourished. Skin: eczema on palm. Quarter sized area of redness an warmth on calf. He describes having had a white head there earlier. No drainage. No palpable fullness. Head: Normocephalic, no masses, lesions, tenderness or abnormalities Lungs: Lungs clear to auscultation. No wheezing, rhonchi, rales Heart: RRR without murmur, gallop, or rubs. No ectopy Abdomen: Normal abdominal exam, Abdomen soft, non-tender. Bowel sounds normal. No masses, organomegaly Extremities: No deformities, edema, skin discoloration, clubbing or cyanosis. Good capillary refill. Musculoskeletal: No joint swelling, deformity, or tenderness ASSESSMENT/PLAN: 1. Headache, unspecified headache type - ICD9: 784.0, ICD10: R51.9 (primary diagnosis) - call if recurs. 2. Enlarged thoracic aorta (HCC) - ICD9: 447.8, ICD10: I77.89 -discussed following and keeping bp tight. 3. History of colonic polyps - ICD9: V12.72, ICD10: Z86.010 - CONSULT TO GENERAL SURGERY 4. 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 Primary hypertension - ICD9: 401.9, ICD10: I10 - Controlled - Improving control - Continue current medications 6. Mixed hyperlipidemia - ICD9: 272.2, ICD10: E78.2 - Controlled - Counseled on healthy diet and regular exercise 7. Mild persistent asthma without complication - ICD9: 493.90, ICD10: J45.30 - check pfts - SPIROMETRY WITH DILATOR IF OBSTRUCTED - LUNG VOLUMES 8. Cellulitis of skin - ICD9: 682.9, ICD10: L03.90 - Discussed risks and benefits of new medication with the patient. Advised them to call if any side effects or questions. Red flags for re-assessment reviewed with patient in detail. Call if symptoms worsen at all or if not better in one to two weeks Reviewed diagnosis and treatment options in detail. Questions were answered. Patient expressed understanding of treatment plan. - CEPHALEXIN 500 MG CAPSULE 9. Eczema, unspecified type - ICD9: 692.9, ICD10: L30.9 - discussed skin care of rash - follow up if symptoms persist or worsen. - MOMETASONE 0.1 % TOPICAL CREAM Conor Pantoja MD documented in this encounter [facility] 12-28-2023 Telephone encounter Note Patient called and given the below results. Lyric Cason RN [facility] 12-28-2023 Miscellaneous Notes Patient called and given the below results. Lyric Cason RN ----- Message from Ju French APRN.CNP sent at 12/28/2023 11:47 AM EDT ----- Please call patient and notify him of results. Echocardiogram has normal structure and function. Thank you documented in this encounter [facility] 12-28-2023 Telephone encounter Note ----- Message from Ju French APRN.CNP sent at 12/28/2023 11:47 AM EDT ----- Please call patient and notify him of results. Echocardiogram has normal structure and function. Thank you [facility] 12-28-2023 Progress note Formatting of t his note might be different from the original. Please call patient and notify him of results. Echocardiogram has normal structure and function. Thank you [facility] Work Phone: 12-28-2023 Miscellaneous Notes Please call patient and notify him of results. Echocardiogram has normal structure and function. Thank you documented in this encounter [facility] 12-27-2023 History of Present illness Narrative Radiology Service Progress Note DATE OF SERVICE: December 27, 2023 TIME: 3:00 PM PATIENT IDENTITY VERIFICATION COMPLETED USING TWO (2) STANDARD IDENTIFIERS: Name and Date of confirmed by patient verbally. FALL SCREENING: Has the patient had 2 falls in the last year or 1 fall with injury or currently using an Ambulatory Assistive Device (Walker, Cane, Wheelchair, Crutches, etc.)? No PATIENT GENDER DATA: Female. status: : No status: NO. PATIENT RELEVANT IMPLANT DATA REVIEWED: Yes PATIENT PRESENTS WITH AN IMPLANTABLE OR ATTACHED REAL TIME ANALYST: No ALLERGIES: Reviewed and unchanged CONTRAST ALLERGY: NO. EXAM: MRI - CONTRAST TYPE: GROUP II PERIPHERAL IV DATA: Ambulatory: A peripheral IV was started in the Left upper extremity with a Angio cath: 22 gauge. RADIOLOGY DEPARTMENT: MR; Exam(s) Completed: Head: Routine Brain SIGNATURE: RT Shoshana(R) PATIENT NAME: Jaime Vega DATE: December 27, 2023 TIME: 3:00 PM documented in this encounter [facility] 12-06-2023 Instructions Risa Campa MD - 12/06/2023 2:59 PM EDT We are starting you on Amlodipine 5 mg once per day Check your blood pressure 2-3 times per week We are going to recheck the echocardiogram documented in this encounter [facility] 12-06-2023 History of Present illness Narrative Images from the original note were not included. [facility] CARDIOLOGY Cardiology ([address]) [address] [address] [id number] OUTPATIENT VISIT DATE 12/05/2023 PRIMARY CARE PHYSICIAN: Conor Pantoja [address] [place] [address] CHIEF COMPLAINT: HISTORY OF PRESENT ILLNESS: Mr. Vega is a 43 year old gentleman with borderline hypertension, dyslipidemia, and ongoing nicotine use (chewing tobacco) who presents for routine follow-up. He was last seen in the office by Ju French CNP in February 2022. He tells me he has been noticing increasing shortness of breath on exertion and occasional episodes where he feels like his heart is pounding in his ears. He has not been checking his blood pressure at home. He denies symptoms of be consistent with CHF including PND, orthopnea, or lower extremity edema. He denies symptoms of palpitations, heart racing, dizziness, syncope, or near syncope. PAST MEDICAL HISTORY Diagnosis Date Abdominal pain Anxiety Asthma Depression Sleep apnea PAST SURGICAL HISTORY Procedure Laterality Date COLONOSCOPY 06/15/2022 repeat in 1 year with MAC COLONOSCOPY FLX DX W/COLLJ SPEC WHEN PFRMD 08/21/2015 Colonoscopy with mac ESOPHAGOGASTRODUODENOSCOPY TRANSORAL DIAGNOSTIC 08/21/2015 EGD with mac PAST SURGICAL HISTORY OF fatty cyst removed from stomach PAST SURGICAL HISTORY OF wisdom teeth SOCIAL HISTORY Social History Tobacco Use Smoking status: Never Smokeless tobacco: Current Types: Chew Vaping Use Vaping Use: Never used Substance Use Topics Alcohol use: No Drug use: No FAMILY HISTORY Problem Relation Age of Onset Heart Father Colon Cancer Father other (colitis) Father other (autism) Son GI issues/ear problems/adhd ALLERGIES: ALLERGIES Allergen Reactions Acetaminophen-Codei* Rash Seasonal Allergies Unknown CATS, DOGS, COCKROACHES, MOLDS, TREES, GRASSES, WEEDS AND RAGWEED VERIFIED BY SKIN TESTING Singulair [[place]* Other: See Comments irritable MEDICATIONS: ciprofloxacin-dexAMETHasone (CIPRODEX) 0.3-0.1 % otic suspension Use 4 Drops in both ears two times a day. Piftrotj-Tdxogm-UG-Thonzonium (CORTISPORIN-TC) otic suspension Use 3 Drops in the ears four times daily. gabapentin (NEURONTIN) 300 mg capsule Take 2 capsules by mouth three times a day for 90 days. ibuprofen (MOTRIN) 600 mg tablet Take 600 mg by mouth once daily as needed for pain (pain). Takes 600-800mg dose acetaminophen (TYLENOL) 500 mg tablet Take 1,000 mg by mouth as needed for pain. QELBREE 100 mg capsule, extended release Take 200 mg by mouth every morning. omeprazole (PRILOSEC) 40 mg capsule Take 1 capsule by mouth once daily. melatonin 3 mg tablet TAKE 1 TABLET APPROXIMATELY 7PM NIGHTLY. clotrimazole-betamethasone (LOTRISONE) cream Apply to affected area twice daily. APPLY TO AFFECTED AREA guanFACINE (TENEX) 1 mg tablet Take 1 mg by mouth daily at bedtime. fluticasone-salmeterol HFA (ADVAIR HFA) 115-21 mcg/actuation inhaler Inhale 2 Puffs as instructed twice daily. Rinse mouth after use. albuterol (PROVENTIL) 2.5 mg /3 mL (0.083 %) nebulizer solution Use 3 mL via nebulizer every 4 hours as needed for wheezing/shortness of breath. Use over 5-15minutes. ipratropium-albuterol (DUONEB) 0.5 mg-3 mg(2.5 mg base)/3 mL nebu Inhale 3 mL as instructed every 6 hours as needed (wheezing). albuterol HFA (VENTOLIN HFA) 90 mcg/actuation inhaler INHALE 2 PUFFS BY MOUTH DIRECTED EVERY 4 HOURS NEEDED FOR WHEEZING OR SHORTNESS OF BREATH CPAP Initiate Auto PAP @ 5-20 cm of water with humidification. Mask (per patient preference) optional chin strap (if indicated) , filters, tubing, humidifier and lifetime supplies. fluticasone (FLONASE) 50 mcg/actuation nasal spray Use 2 Sprays in each nostril once daily. cetirizine (ZYRTEC) 10 mg tablet Take 1 tablet by mouth once daily as needed. meloxicam (MOBIC) 15 mg tablet Take 1 tablet by mouth once daily. Take this directly following a meal (Patient not taking: Reported on 07/16/2023) REVIEW OF SYSTEMS: Review of Systems Constitutional: Negative for chills, fever, malaise/fatigue and weight loss. HENT: Negative for hearing loss and sore throat. Eyes: Negative for blurred vision and double vision. Respiratory: Negative. Cardiovascular: Negative. Gastrointestinal: Negative. Genitourinary: Negative for dysuria, frequency, hematuria and urgency. Musculoskeletal: Negative. Skin: Negative. Neurological: Negative for dizziness, seizures, loss of consciousness, weakness and headaches. Endo/Heme/Allergies: Negative for environmental allergies. Does not bruise/bleed easily. Psychiatric/Behavioral: Negative for depression. PHYSICAL EXAMINATION: BP 141/93 Pulse 91 Wt 247 lb (112.0kg) SpO2 98% General: Pleasant gentleman sitting appears comfortable no apparent distress he is alert and oriented x 3 HEENT: Carotid upstrokes are brisk without bruits no JVD appreciated. Pulmonary: Lungs are clear no rales, wheezes, rhonchi Cardiovascular: Normal S1, S2 with regular rate and rhythm. No murmurs, rubs, or gallops Extremities: Warm, well-perfused, no lower extremity edema. 2+ distal pulses CARDIOVASCULAR MEDICINE TESTING: ECG in the office 12/06/2023: Normal sinus rhythm. Minimal voltage criteria for LVH. No significant ST or T wave changes Treadmill Myoview Stress 02/23/2022 CONCLUSIONS: 1. SPECT Perfusion Study: Normal. 2. There is no scintigraphic evidence for inducible ischemia. 3. No evidence of scarred myocardium. 4. Left ventricle is normal in size. The left ventricle systolic function is normal. 5. Right ventricle is normal in size. The right ventricle systolic function is normal. 6. This is a low risk scan. Gated Stress FBP Gated Rest FBP LVEF % 71 62 Echocardiogram 09/18/2021: CONCLUSIONS: - Technically difficult exam due to body habitus. - Exam indication: Shortness of Breath - The left ventricle is normal in size. Left ventricular systolic function is normal. EF = 65 5% (2D biplane) Normal left ventricular diastolic function. - The right ventricle is normal in size. Right ventricular systolic function is normal. - There are no significant valvular abnormalities. - The patient has not had a prior CC echocardiographic exam for comparison. IMPRESSION: Mr. Vega is a 43 year old gentleman with a history of borderline hypertension, dyslipidemia, ongoing nicotine use who presents the office for evaluation of shortness of breath PLAN AND RECOMMENDATIONS: 1. Primary hypertension - ICD9: 401.9, ICD10: I10 (primary diagnosis) I have started the patient on amlodipine 5 mg daily. Have asked him to start checking his blood pressure at home. He will contact the office in 1 month with update on blood pressure readings. Discussed dietary and lifestyle modification for further improvement in blood pressure management cardiovascular risk reduction - AMLODIPINE 5 MG TABLET 2. Mixed hyperlipidemia - ICD9: 272.2, ICD10: E78.2 Most recent fasting lipid panel was from January 2022. At that time, his total cholesterol is 220 mg/dL with an LDL of 161 mg/dL. Could consider initiation of statin therapy based on his cholesterol profile and his overall cardiovascular lifetime risk - ECG COMPLETE 3. VILLEGAS (dyspnea on exertion) - ICD9: 786.09, ICD10: R06.09 - ECG COMPLETE - ECHO - PERFLUTREN LIPID MICROSPHERES 1.1 MG/ML INJECTION IN NS 10 ML - SODIUM CHLORIDE 0.9 % (FLUSH) INJECTION SYRINGE 4. Screening for ischemic heart disease - ICD9: V81.0, ICD10: Z13.6 - ECG COMPLETE - ECHO - PERFLUTREN LIPID MICROSPHERES 1.1 MG/ML INJECTION IN NS 10 ML - SODIUM CHLORIDE 0.9 % (FLUSH) INJECTION SYRINGE 5. 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 - ICD9: 292.9, ICD10: F17.229 Cessation was encouraged given his history of hypertension and dyslipidemia. Harmful effects of nicotine exposure were discussed in detail with the patient. Risa Campa MD documented in this encounter [facility] 11-22-2023 History of Present illness Narrative Patient presents with: Headache HPI: Patient presents today for office visit for acute issue. States 1-2 weeks ago had an episode where he experienced the worst headache of his life. Woke that morning with headache that progressed throughout the day. Last about 10 hours and then refers to it tapering off. Did not seek emergency evaluation. Red flags for re-assessment reviewed with patient in detail. [place] severe pounding in middle of and behind his eyes. Refers to a nail being pounded in the side of his head. Some dizziness with nausea. The dimmest light caused him to be sick to his stomach. No vomiting. Was trying to speak to his but his couldn't understanding him. He said it made sense in his head but she wasn't understanding him. Some blurred vision. Denies numbness and tingling. Denies any generalized weakness. Was unable to eat and drink. Slept a lot throughout the day. States when he woke up that afternoon between the hours of 1pm and 3pm the headache had lessened but, while standing in his kitchen he had an episode he refers to where he zoned out while he thought he was getting ready to call his boss. States he recalls having his phone in his hand while leaning on the counter but when he came to his phone was actually in his bedroom. Some confusion. No seizure like activity. No syncope. He states his son had this same thing happen to him 7-10 days prior. No neck pain with it. Does not ordinarily get headaches. No fever. Now is feeling better. No chest pain or shortness of breath. No edema. Never had anything like this before. No head trauma. MEDICATIONS: Current Outpatient Medications Medication Sig ciprofloxacin-dexAMETHasone (CIPRODEX) 0.3-0.1 % otic suspension Use 4 Drops in both ears two times a day. Zejxccsz-Ycblrr-BD-Thonzonium (CORTISPORIN-TC) otic suspension Use 3 Drops in the ears four times daily. gabapentin (NEURONTIN) 300 mg capsule Take 2 capsules by mouth three times a day for 90 days. ibuprofen (MOTRIN) 600 mg tablet Take 600 mg by mouth once daily as needed for pain (pain). Takes 600-800mg dose acetaminophen (TYLENOL) 500 mg tablet Take 1,000 mg by mouth as needed for pain. QELBREE 100 mg capsule, extended release Take 200 mg by mouth every morning. omeprazole (PRILOSEC) 40 mg capsule Take 1 capsule by mouth once daily. melatonin 3 mg tablet TAKE 1 TABLET APPROXIMATELY 7PM NIGHTLY. clotrimazole-betamethasone (LOTRISONE) cream Apply to affected area twice daily. APPLY TO AFFECTED AREA guanFACINE (TENEX) 1 mg tablet Take 1 mg by mouth daily at bedtime. fluticasone-salmeterol HFA (ADVAIR HFA) 115-21 mcg/actuation inhaler Inhale 2 Puffs as instructed twice daily. Rinse mouth after use. albuterol (PROVENTIL) 2.5 mg /3 mL (0.083 %) nebulizer solution Use 3 mL via nebulizer every 4 hours as needed for wheezing/shortness of breath. Use over 5-15minutes. ipratropium-albuterol (DUONEB) 0.5 mg-3 mg(2.5 mg base)/3 mL nebu Inhale 3 mL as instructed every 6 hours as needed (wheezing). albuterol HFA (VENTOLIN HFA) 90 mcg/actuation inhaler INHALE 2 PUFFS BY MOUTH DIRECTED EVERY 4 HOURS NEEDED FOR WHEEZING OR SHORTNESS OF BREATH CPAP Initiate Auto PAP @ 5-20 cm of water with humidification. Mask (per patient preference) optional chin strap (if indicated) , filters, tubing, humidifier and lifetime supplies. fluticasone (FLONASE) 50 mcg/actuation nasal spray Use 2 Sprays in each nostril once daily. cetirizine (ZYRTEC) 10 mg tablet Take 1 tablet by mouth once daily as needed. meloxicam (MOBIC) 15 mg tablet Take 1 tablet by mouth once daily. Take this directly following a meal (Patient not taking: Reported on 07/16/2023) No current facility-administered medications for this visit. ALLERGIES: ALLERGIES Allergen Reactions Acetaminophen-Codei* Rash Seasonal Allergies Unknown CATS, DOGS, COCKROACHES, MOLDS, TREES, GRASSES, WEEDS AND RAGWEED VERIFIED BY SKIN TESTING Singesvinir [[place]* Other: See Comments irritable PAST MEDICAL HISTORY Diagnosis Date Abdominal pain Anxiety Asthma Depression Sleep apnea PAST SURGICAL HISTORY Procedure Laterality Date COLONOSCOPY 06/15/2022 repeat in 1 year with MAC COLONOSCOPY FLX DX W/COLLJ SPEC WHEN PFRMD 08/21/2015 Colonoscopy with mac ESOPHAGOGASTRODUODENOSCOPY TRANSORAL DIAGNOSTIC 08/21/2015 EGD with mac PAST SURGICAL HISTORY OF fatty cyst removed from stomach PAST SURGICAL HISTORY OF wisdom teeth FAMILY HISTORY Problem Relation Age of Onset Heart Father Colon Cancer Father other (colitis) Father other (autism) Son GI issues/ear problems/adhd Social History Tobacco Use Smoking status: Never Smokeless tobacco: Current Types: Chew Vaping Use Vaping Use: Never used Substance Use Topics Alcohol use: No Drug use: No Reviewed current medications, allergies, past medical history, surgical history, family history and social history today. REVIEW OF SYSTEMS All other reviewed and negative other than HPI. HEALTH MAINTENANCE: Reviewed health maintenance issues today and recommended the following in detail. Hepatitis C Screening Never done HIV Screening Never done Hepatitis B Vaccine(1 of 3 - 19+ 3-dose series) Never done Covid-19 Vaccine(2022- season) Never done Colorectal Cancer Screening -recommended. VITALS: BP 132/90 Pulse 71 Ht 175.3 cm (5' 9) Wt 110.7 kg (244 lb) SpO2 98% BMI 36.03 kg/m Last 4 Encounter Wt Readings: Date: Wt: 11/22/2023 110.7 kg (244 lb) 09/17/2023 109.3 kg (241 lb) 08/20/2023 110.7 kg (244 lb) 07/16/2023 111 kg (244 lb 11.4 oz) PHYSICAL EXAMINATION: General appearance: Well appearing, alert, in no acute distress, well-hydrated, well nourished. Skin: Skin color, texture, turgor normal, no suspicious rashes or lesions Head: Normocephalic, no masses, lesions, tenderness or abnormalities Eyes: Anicteric sclera. Pupils are equally round and reactive to light. Extraocular movements are intact. Ears: External ears normal, canals clear Nose/Sinuses: Nares normal, septum midline, mucosa normal, no drainage or sinus tenderness Oropharynx: Lips, mucosa, and tongue normal, teeth and gums normal, oropharynx normal Neck: Supple, no adenopathy; thyroid symmetric, normal size, no bruits Back: Normal exam Lungs: Lungs clear to auscultation. No wheezing, rhonchi, rales Heart: RRR without murmur, gallop, or rubs. No ectopy Abdomen: Normal abdominal exam, Abdomen soft, non-tender. Bowel sounds normal. No masses, organomegaly Extremities: No deformities, edema, skin discoloration, clubbing or cyanosis. Good capillary refill. Musculoskeletal: No joint swelling, deformity, or tenderness Peripheral pulses: Normal Neuro: Gait normal. Reflexes normal and symmetric. Sensation grossly intact. ASSESSMENT/PLAN: 1. Headache, unspecified headache type - ICD9: 784.0, ICD10: R51.9 (primary diagnosis) - get mri to rule out mass, etc. Follow bp - COMPLETE BLOOD COUNT AND DIFFERENTIAL - BASIC METABOLIC PANEL - SEDIMENTATION RATE, WESTERGREN - MRI BRAIN WO/W IVCON - IV CONTRAST (RADIOLOGY PROCEDURE) 2. Mental confusion - ICD9: 298.9, ICD10: R41.0 - Red flags for re-assessment reviewed with patient in detail. - COMPLETE BLOOD COUNT AND DIFFERENTIAL - BASIC METABOLIC PANEL - SEDIMENTATION RATE, WESTERGREN - MRI BRAIN WO/W IVCON - IV CONTRAST (RADIOLOGY PROCEDURE) 3. Need for hepatitis C screening test - ICD9: V73.89, ICD10: Z11.59 - check labs. 4. Screening for HIV (human immunodeficiency virus) - ICD9: V73.89, ICD10: Z11.4 - check labs. Conor Pantoja MD documented in this encounter [facility] 09-20-2023 Telephone encounter Note Pharmacist calling stating that ear drops is not in stock. They do have Ciprodex to substitute. Please review and advise. Lula Obrien LPN [facility] Work Phone: 09-20-2023 Miscellaneous Notes Pharmacist calling stating that ear drops is not in stock. They do have Ciprodex to substitute. Please review and advise. Lula Obrien LPN documented in this encounter [facility] 09-17-2023 Telephone encounter Note The suggested interchange is acceptable. Thank you. Pharmacy notified. Transferred RX to [facility] in [place] per pharmacist [facility] 09-17-2023 Miscellaneous Notes The suggested interchange is acceptable. Thank you. Pharmacy notified. Transferred RX to [facility] in [place] per pharmacist [facility] pharmacy calling the ear drops are not in stock. they have Neomycin, Polymixin, Hydrocortisone ear drop in stock. Asking if could change the rx? Please advise documented in this encounter [facility] 09-17-2023 Telephone encounter Note [facility] pharmacy calling the ear drops are not in stock. they have Neomycin, Polymixin, Hydrocortisone ear drop in stock. Asking if could change the rx? Please advise [facility] 09-17-2023 Instructions Denice Melissa APRN.GIN[place] - 09/17/2023 1:01 PM EDT 1) Amoxicillin 500 mg 3 x day for 7 days 2) Cortisporin ear drops 3 drops 4 times a day- for 5 days 3) Take cetrizine 10 mg daily 4) Follow up in 1-2 mo documented in this encounter [facility] 09-17-2023 History of Present illness Narrative This is a 42 year old male who presents today with: Patient presents with: Neck Pain: Left side below ear. Feels tight. Shortness of Breath: Becomes easily winded at times lately. Denies edema. Not all the time. HISTORY OF PRESENT ILLNESS: Jaime Vega is a 42 year old male. Patient presents with: Neck Pain: Left side below ear. Feels tight. Shortness of Breath: Becomes easily winded at times lately. Denies edema. Not all the time. Intermittent swelling in left subauricular area. Some dyspnea. Never at rest. Ears feel full, muffled, pop at times. 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 REVIEW OF SYSTEMS GENERAL: 3-4 lb. weight loss, + malaise, no fevers/chills HEENT: Negative for frequent or significant headaches, No changes in hearing or vision. NECK: Negative for lumps, goiter, pain and significant neck swelling RESPIRATORY: Negative for cough, hemoptysis, no change in occ. wheezing, + dyspnea / shortness of breath CARDIOVASCULAR: Sometimes chest pain not related to extreme activity, leg swelling, or orthopnea, + palpitations GI: No nausea, vomiting, or diarrhea/constipation. No hematochezia/melena. Seldom heartburn or reflux symptoms with medication. SKIN: Negative for lesions, rash, and itching NEURO: No history of headaches, syncope, paralysis, seizures or tremors MOOD: Both depression, anxiety, no suicidal ideation. PAST MEDICAL HISTORY: PAST MEDICAL HISTORY Diagnosis Date Abdominal pain Anxiety Asthma Depression Sleep apnea PAST SURGICAL HISTORY Procedure Laterality Date COLONOSCOPY 06/15/2022 repeat in 1 year with MAC COLONOSCOPY FLX DX W/COLLJ SPEC WHEN PFRMD 08/21/2015 Colonoscopy with mac ESOPHAGOGASTRODUODENOSCOPY TRANSORAL DIAGNOSTIC 08/21/2015 EGD with mac PAST SURGICAL HISTORY OF fatty cyst removed from stomach PAST SURGICAL HISTORY OF wisdom teeth ALLERGIES Acetaminophen-Codeine, Seasonal Allergies, and Singulair [Montelukast Sodium] MEDICATIONS Current Outpatient Medications Medication Sig QELBREE 100 mg capsule, extended release Take by mouth every morning. omeprazole (PRILOSEC) 40 mg capsule Take 1 capsule by mouth once daily. guanFACINE (TENEX) 1 mg tablet Take 1 mg by mouth daily at bedtime. fluticasone-salmeterol HFA (ADVAIR HFA) 115-21 mcg/actuation inhaler Inhale 2 Puffs as instructed twice daily. Rinse mouth after use. albuterol (PROVENTIL) 2.5 mg /3 mL (0.083 %) nebulizer solution Use 3 mL via nebulizer every 4 hours as needed for wheezing/shortness of breath. Use over 5-15minutes. ipratropium-albuterol (DUONEB) 0.5 mg-3 mg(2.5 mg base)/3 mL nebu Inhale 3 mL as instructed every 6 hours as needed (wheezing). albuterol HFA (VENTOLIN HFA) 90 mcg/actuation inhaler INHALE 2 PUFFS BY MOUTH DIRECTED EVERY 4 HOURS NEEDED FOR WHEEZING OR SHORTNESS OF BREATH CPAP Initiate Auto PAP @ 5-20 cm of water with humidification. Mask (per patient preference) optional chin strap (if indicated) , filters, tubing, humidifier and lifetime supplies. fluticasone (FLONASE) 50 mcg/actuation nasal spray Use 2 Sprays in each nostril once daily. cetirizine (ZYRTEC) 10 mg tablet Take 1 tablet by mouth once daily as needed. gabapentin (NEURONTIN) 300 mg capsule Take 2 capsules by mouth three times a day for 90 days. ibuprofen (MOTRIN) 600 mg tablet Take 600 mg by mouth once daily as needed for pain (pain). Takes 600-800mg dose acetaminophen (TYLENOL) 500 mg tablet Take 1,000 mg by mouth as needed for pain. melatonin 3 mg tablet TAKE 1 TABLET APPROXIMATELY 7PM NIGHTLY. meloxicam (MOBIC) 15 mg tablet Take 1 tablet by mouth once daily. Take this directly following a meal (Patient not taking: Reported on 07/16/2023) clotrimazole-betamethasone (LOTRISONE) cream Apply to affected area twice daily. APPLY TO AFFECTED AREA No current facility-administered medications for this visit. FAMILY HISTORY Problem Relation Age of Onset Heart Father Colon Cancer Father other (colitis) Father other (autism) Son GI issues/ear problems/adhd Social History Tobacco Use Smoking status: Never Smokeless tobacco: Current Types: Chew Vaping Use Vaping Use: Never used Substance Use Topics Alcohol use: No Drug use: No EXAM: BP 113/72 Pulse 78 Wt 109.3 kg (241 lb) SpO2 98% BMI 35.59 kg/m PHYSICAL EXAM: General Appearance: Well appearing, alert, in no acute distress, well-hydrated, well nourished.. Head: Normocephalic, no masses, lesions, tenderness or abnormalities. Ears: right ear canal patent with tympanic membrane normal- able to see cone of light, left ear canal red, 50% swollen closed, boggy, and what is seen is inflamed. Neck: Supple, no adenopathy; thyroid symmetric, normal size, no bruits. Lungs: Lungs clear to auscultation. No wheezing, rhonchi, rales.. Heart: RRR without murmur, gallop, or rubs. No ectopy. LABS: ASSESSMENT/PLAN: 1. Other infective acute otitis externa of left ear - ICD9: 380.10, ICD10: H60.392 Acute on chronic. - CORTISPORIN-TC 3.3 MG-3 MG-10 MG-0.5 MG/ML EAR DROPS,SUSPENSION 4 x day for 5 days - AMOXICILLIN 500 MG CAPSULE 3 x day for 5 days - Start Cetrizine 10 mg daily that he has at home for prn use- use for 2-3 weeks consistently Follow up in 1-2 months for routine care Discussed treatment plan and patient voices understanding. Patient's questions answered appropriately. Medications and potential side effects were discussed and patient voices understanding. Return to the office as scheduled or as needed for worsening/no improvement. Denice Melissa APRN.CNS The patient indicates understanding of these issues and agrees with the plan. documented in this encounter [facility] 09-15-2023 Telephone encounter Note Patient has been identified by name and date of : Yes RX INSTRUCTIONS: Pharmacy initiated this request. No need to notify patient. Patient phones requesting refills as follows: Requested Prescriptions Pending Prescriptions Disp Refills gabapentin (NEURONTIN) 300 mg capsule [Pharmacy Med Name: GABAPENTIN 300 MG CAPSULE] 180 capsule 2 Sig: Take 2 capsules by mouth three times a day for 90 days. Please review and advise. Radha Hill MA [facility] 09-15-2023 Miscellaneous Notes Patient has been identified by name and date of : Yes RX INSTRUCTIONS: Pharmacy initiated this request. No need to notify patient. Patient phones requesting refills as follows: Requested Prescriptions Pending Prescriptions Disp Refills gabapentin (NEURONTIN) 300 mg capsule [Pharmacy Med Name: GABAPENTIN 300 MG CAPSULE] 180 capsule 2 Sig: Take 2 capsules by mouth three times a day for 90 days. Please review and advise. Radha Hill MA documented in this encounter [facility] 08-09-2023 Miscellaneous Notes MARV: 07/16/2023 w/ Risa Steiner PA-C Assessment/Plan: Encounter Diagnosis ICD-10-CM 1. Lumbar radiculopathy M54.16 2. Bulging lumbar disc M51.36 3. Spinal stenosis of lumbar region with neurogenic claudication M48.062 RTC: on an as-needed basis (PRN) Other/Discussion: He will return once his symptoms worsen or change. We can repeat the same RIGHT L4-5 TFESI at that point if needed. Routing patient's request for medication to provider for review and recommendations. documented in this encounter [facility] 07-16-2023 History of Present illness Narrative [facility] Steiner [facility] [address] [place] [address] Dear Conor Pantoja MD, Jaime Lomax Gary is a pleasant 42 year old individual who comes in to the office on 07/16/2023 for follow-up regarding the Lumbar spine. Has lower back pain, and right leg- pain stops above the ankle. Level of the pain is at 7/10. Injection helped with shooting pain. Has some tingling in the leg. Still cannot cross his leg, or put the socks on. Patient is here alone today. Subjective: Compared to the last visit, symptoms have been improved. Mr. Vega is here after injection on 06/17/23, injection helped 80%. ROS: Since last visit-patient DENIES fevers, chills, night sweats, unexpected weight loss or gain, abdominal pain, progressive weakness, paralysis, loss of bowel/bladder control, saddle numbness, stumbling gait, loss of coordination. and Since last visit--patient indicates NEW presence of: numbness or tingling in the right leg - more constant now. Current Outpatient Medications Medication Sig Dispense Refill omeprazole (PRILOSEC) 40 mg capsule Take 1 capsule by mouth once daily. 30 capsule 5 melatonin 3 mg tablet TAKE 1 TABLET APPROXIMATELY 7PM NIGHTLY. 30 tablet 2 atomoxetine (STRATTERA) 40 mg capsule Take 40 mg by mouth once daily. clotrimazole-betamethasone (LOTRISONE) cream Apply to affected area twice daily. APPLY TO AFFECTED AREA 45 g 4 guanFACINE (TENEX) 1 mg tablet Take 1 mg by mouth daily at bedtime. fluticasone-salmeterol HFA (ADVAIR HFA) 115-21 mcg/actuation inhaler Inhale 2 Puffs as instructed twice daily. Rinse mouth after use. 12 g 11 albuterol (PROVENTIL) 2.5 mg /3 mL (0.083 %) nebulizer solution Use 3 mL via nebulizer every 4 hours as needed for wheezing/shortness of breath. Use over 5-15minutes. 30 Vial 1 ipratropium-albuterol (DUONEB) 0.5 mg-3 mg(2.5 mg base)/3 mL nebu Inhale 3 mL as instructed every 6 hours as needed (wheezing). 30 mL 11 albuterol HFA (VENTOLIN HFA) 90 mcg/actuation inhaler INHALE 2 PUFFS BY MOUTH DIRECTED EVERY 4 HOURS NEEDED FOR WHEEZING OR SHORTNESS OF BREATH 18 g 3 CPAP Initiate Auto PAP @ 5-20 cm of water with humidification. Mask (per patient preference) optional chin strap (if indicated) , filters, tubing, humidifier and lifetime supplies. 1 Device 0 fluticasone (FLONASE) 50 mcg/actuation nasal spray Use 2 Sprays in each nostril once daily. 1 Bottle 11 cetirizine (ZYRTEC) 10 mg tablet Take 1 tablet by mouth once daily as needed. 30 tablet 11 gabapentin (NEURONTIN) 300 mg capsule Take 2 capsules by mouth three times a day for 90 days. 180 capsule 2 meloxicam (MOBIC) 15 mg tablet Take 1 tablet by mouth once daily. Take this directly following a meal (Patient not taking: Reported on 07/16/2023) 60 tablet 1 No current facility-administered medications for this visit. Exam: Blood pressure 122/77, pulse 76, height 175.3 cm (5' 9), weight 111 kg (244 lb 11.4 oz), SpO2 99%. Body mass index is 36.14 kg/m . Station and Gait: Normal stance, normal gait. Sensory: RIGHT ?L5 N/T Pain on Palpation: RIGHT lumbosacral junction near the PSIS Seated SLR is positive on the right Imaging: The following study/studies were reviewed with the patient during the visit: We reviewed his most recent lumbar MRI scan and plain radiographs. He does have a significant disc bulge at L4-5 and there is desiccation as well as fairly large disc bulge but the bulge appears to be bilateral. Symptoms are primarily right-sided. Assessment/Plan: Encounter Diagnosis ICD-10-CM 1. Lumbar radiculopathy M54.16 2. Bulging lumbar disc M51.36 3. Spinal stenosis of lumbar region with neurogenic claudication M48.062 RTC: on an as-needed basis (PRN) Other/Discussion: He will return once his symptoms worsen or change. We can repeat the same RIGHT L4-5 TFESI at that point if needed. Time spent: 25 minutes today with this patient visit. This includes [id number] time, review of chart records regarding conservative care history, spine-pertinent imaging, and communication/care coordination with referring provider, problem-specific history-taking and counseling/education regarding treatment options. This document has been created with the use of voice recognition technology. It may contain inaccuracies: (e.g. misspellings, inaccurate syntax or word sense) that have escaped review. Radha Hill MA documented in this encounter [facility] 07-14-2023 Miscellaneous Notes Patient has been identified by name and date of : Yes Requested Prescriptions Pending Prescriptions Disp Refills omeprazole (PRILOSEC) 40 mg capsule 30 capsule 5 Sig: Take 1 capsule by mouth once daily. RX INSTRUCTIONS: Patient aware RX will be sent to pharmacy. No need to notify patient. [facility] 12/02/22 No visit scheduled. Annetta Claire LPN documented in this encounter [facility] 04-20-2023 Miscellaneous Notes Fast Track Injection Request: Referring Surgeon: Risa Steiner PA-C Injection Requested: Right L4-5 TFESI Imaging reviewed: CT abd/pelvis, MRI L-spine pending Anti-Coagulants: none Pt will need MRI L-spine completed prior to his R L4-5 TFESI (scheduled for end of April). Patient appropriate for the requested procedure. Order placed. Staff informed to assist patient with scheduling. Princess Arteaga MD PhD Received a referral from Risa Steiner PA-C for patient to have Transforaminal Lumbar epidural steroid injection: Right; Level: L4-5 CPT 98045 Imaging- NONE Anticoag- NONE Please review and advise [facility] [address] [place] [address] P: [phone] F: [phone] documented in this encounter [facility] 04-19-2023 History of Present illness Narrative Radiology Service Progress Note PATIENT NAME: Jaime Vega DATE OF SERVICE: April 19, 2023 TIME: 5:11 PM PATIENT IDENTITY VERIFICATION COMPLETED USING TWO (2) IDENTIFIERS: Name and Date of confirmed by patient verbally. FALL SCREENING: Has the patient had 2 falls in the last year or 1 fall with injury or currently using an Ambulatory Assistive Device (Walker, Cane, Wheelchair, Crutches, etc.)? No PATIENT GENDER DATA: Male PATIENT RELEVANT IMPLANT DATA REVIEWED: Not Applicable RADIOLOGY DEPARTMENT: General X-ray: Exam(s) Completed: Spine X-Ray(s): Lumbar AP / LAT / L5-S1 / FLEX-EXT PERIPHERAL IV DATA: Not applicable SIGNED BY: RT Kilo(R) April 19, 2023 5:11 PM documented in this encounter [facility] 04-14-2023 Instructions Risa Steiner PA-C - 04/14/2023 4:22 PM EST For spinal epidural injection, Contact - [place] - Dr. Deng Wolf: Have patient call [phone] to schedule - [place] - Drs. Nba Carroll, Megan Guzmán, Flash Arteaga: have patient call Ext. [phone] - [facility] [place] - Dr. Joseph Thibodeaux: have patient call - [facility] [place] - first available: have patient call [phone] Injection Type - Transforaminal Lumbar epidural steroid injection: Right; Level: L4-5 CPT 99578 documented in this encounter [facility] 04-14-2023 History of Present illness Narrative [facility] [address] [address] Dear Conor Pantoja MD, Jaime Lomax Gary is a pleasant 42 year old individual who comes in to the office on 04/14/2023 for follow-up regarding the Lumbar spine. Has pain in the lower back, right hip, and right leg- pain goes down tot he toes. Level of the pain is at 10/10. Has this pain for year, but in the last few months pain started to get worse. Patient is here alone today. Subjective: Compared to the last visit, symptoms have been worse. Mr. Vega is here after PT was done, made pain worse. ROS: Since last visit-patient DENIES fevers, chills, night sweats, unexpected weight loss or gain, abdominal pain, progressive weakness, paralysis, loss of bowel/bladder control, saddle numbness, stumbling gait, loss of coordination. and Since last visit--patient indicates NEW presence of: numbness or tingling in right leg, weakness in the lower back and right leg, and bladder urgency. Current Outpatient Medications Medication Sig Dispense Refill atomoxetine (STRATTERA) 40 mg capsule Take 40 mg by mouth once daily. meloxicam (MOBIC) 15 mg tablet Take 1 tablet by mouth once daily. Take this directly following a meal 60 tablet 1 gabapentin (NEURONTIN) 300 mg capsule Take 1 capsule by mouth three times daily for 90 days. 90 capsule 2 clotrimazole-betamethasone (LOTRISONE) cream Apply to affected area twice daily. APPLY TO AFFECTED AREA 45 g 4 guanFACINE (TENEX) 1 mg tablet Take 1 mg by mouth daily at bedtime. omeprazole (PRILOSEC) 40 mg capsule Take 1 capsule by mouth once daily. 30 capsule 5 melatonin 3 mg tablet Take 1 tablet approximately 7PM nightly. 30 tablet 5 fluticasone-salmeterol HFA (ADVAIR HFA) 115-21 mcg/actuation inhaler Inhale 2 Puffs as instructed twice daily. Rinse mouth after use. 12 g 11 albuterol (PROVENTIL) 2.5 mg /3 mL (0.083 %) nebulizer solution Use 3 mL via nebulizer every 4 hours as needed for wheezing/shortness of breath. Use over 5-15minutes. 30 Vial 1 ipratropium-albuterol (DUONEB) 0.5 mg-3 mg(2.5 mg base)/3 mL nebu Inhale 3 mL as instructed every 6 hours as needed (wheezing). 30 mL 11 albuterol HFA (VENTOLIN HFA) 90 mcg/actuation inhaler INHALE 2 PUFFS BY MOUTH DIRECTED EVERY 4 HOURS NEEDED FOR WHEEZING OR SHORTNESS OF BREATH 18 g 3 CPAP Initiate Auto PAP @ 5-20 cm of water with humidification. Mask (per patient preference) optional chin strap (if indicated) , filters, tubing, humidifier and lifetime supplies. 1 Device 0 fluticasone (FLONASE) 50 mcg/actuation nasal spray Use 2 Sprays in each nostril once daily. 1 Bottle 11 cetirizine (ZYRTEC) 10 mg tablet Take 1 tablet by mouth once daily as needed. 30 tablet 11 atomoxetine (STRATTERA) 25 mg capsule Take 1 capsule by mouth every 12 hours 6am/6pm. (Patient not taking: Reported on 04/14/2023) No current facility-administered medications for this visit. Exam: Blood pressure 123/85, pulse 81, height 175.3 cm (5' 9), weight 111.6 kg (246 lb), SpO2 99 %. Body mass index is 36.33 kg/m . Station and Gait: favoring the right lower extremity Range of Motion: Diminished low back motion especially toward the right side. This causes pain in the right groin Motor: He has diminished right dorsiflexor and EHL at -4/5 Sensory: Diminished right L5 sensory Reflexes: Normoreflexic Pain on Palpation: Pain on right sciatic notch and PSIS Seated SLR is positive on the right Imaging: The following study/studies were reviewed with the patient during the visit: We reviewed his lumbar plain radiographs in detail during today's visit. These are older films from 2019 and I had recently recommended that he update these films but he had forgotten to do this since his visit with me in December. He will update these next. He had an interim CT scan of the abdomen and pelvis that incidentally showed severe stenosis at L4-5 Assessment/Plan: Encounter Diagnosis ICD-10-CM 1. Spinal stenosis of lumbar region with neurogenic claudication M48.062 MRI LUMBAR SPINE WO IVCON SPINE INTERVENTION PROCEDURE 2. Bulging lumbar disc M51.36 MRI LUMBAR SPINE WO IVCON gabapentin (NEURONTIN) 300 mg capsule SPINE INTERVENTION PROCEDURE 3. Spinal stenosis of lumbar region without neurogenic claudication M48.061 MRI LUMBAR SPINE WO IVCON gabapentin (NEURONTIN) 300 mg capsule SPINE INTERVENTION PROCEDURE RTC: for test results (see ordered test(s) above) Other/Discussion: He seems to have fairly significant back and right leg radiating symptoms roughly an L5 distribution. He had a CT abdomen and pelvis that is noted above showing L4-5 stenosis His gabapentin seems to be helping a little bit but I will have him increase this to 600 mg 3 times a day and we talked about a gradual ramping protocol and weaning protocol needed for this. He will also try to finish out supervised PT if he is able and work harder at home traction because it seems to help quite a bit. I would also recommend right L4-[address] results and clinical presentation. We had a lengthy discussion about KAREN and he understands signs and symptoms to watch for. At this point, it looks like lumbar radiculopathy Time spent: 35 minutes today with this patient visit. This includes [id number] time, review of chart records regarding conservative care history, spine-pertinent imaging, and communication/care coordination with referring provider, problem-specific history-taking and counseling/education regarding treatment options. This document has been created with the use of voice recognition technology. It may contain inaccuracies: (e.g. misspellings, inaccurate syntax or word sense) that have escaped review. Radha Hill MA documented in this encounter [facility] 03-31-2023 History of Present illness Narrative Episode Visit Count: 6 Therapist That Will Accept/Oversee The Plan Of Care: Chinyere Anneissa Start of Care Date: 02/08/23 Onset Date: 11/21/22 (years ago, worsening past couple of months) Plan of Care Certification Date: 03/22/23 Next Certification Due Date: 04/22/23 Patient Identified by Name and Date of : Yes REHABILITATION AND SPORTS THERAPY PHYSICAL THERAPY TREATMENT NOTE ASSESSMENT: Jaime Vega tolerated the session with decreased symptoms. He demonstrated difficulty with continued aping and limited mobility/function and improvements in symptom response to prone lying/prone prop and good relief during traction treatment. The patient will continue to benefit from ongoing skilled physical therapy to progress toward set goals. PLAN FOR NEXT VISIT: Prone, ext-based ex. and may add some core strengthening. Manual soft tissue mobs and pelvic traction for pain relief. SUBJECTIVE: Pt states he took Aleve this morning and dulls it a little bit, but still very painful. He notes he had to carry (used a lou) down the stairs yesterday and rip up some carpet. Pain: Pain Pain Level: 9 Pain Location: Low Back/Lumbar Spine - Right, Buttocks - Right, Thigh - Right, Calf - Right Post Treatment Pain Post Treatment Pain Level: 6 (6-7/10) Post Treatment Pain Location: Low Back/Lumbar Spine - Right, Buttocks - Right OBJECTIVE MEASURES WITH LEVEL OF FUNCTION: TREATMENT: Therapeutic Exercise: 1: prone lying (Pt notes relief when fully relaxed in prone position.) 2: prone press ups (At end range extension pt notes shooting pain down to foot.) 3: Prone prop on elbows 4: Educated and reviewed with pt lumbar spine anatomy and relation to his symptoms and posture/positioning. Instructed in centralization of symptoms and rationale for progression of prone extension ex based on intensity and location of symptoms. Skilled Intervention: Patient was educated in proper exercise technique and purpose for exercises. Reviewed and educated patient on additions/changes for home exercise program. Skilled judgment was used in selection of appropriate interventions. Correct performance of therapeutic exercises was facilitated with verbal and visual cuing. Patient education as noted. Manual Therapy: 1: soft tissue mobs with foam roller to R lumbosacral and buttocks musculature with pt in prone lying 2: Manual lumbar belt traction with pt BLE elevated on stool with caudal pull to tolerance x 12 minutes. Skilled Intervention: Manual skills to improve joint mobility, ROM, and decrease pain. Utilized anatomy knowledge of the therapist, and assessment of patient's response to intervention. Billing Therapeutic Exercise Treatment Minutes: 28 Manual TherapyTreatment Minutes: 17 Skilled Treatment Time Minutes (timed and untimed codes): 45 Total Session Time (minutes): 45 Session Start Time : 0800 Session Stop Time : 844 Janice Anne PT documented in this encounter [facility] 03-22-2023 History of Present illness Narrative Episode Visit Count: 5 Therapist That Will Accept/Oversee The Plan Of Care: Janice Anne Start of Care Date: 02/08/23 Onset Date: 11/21/22 (years ago, worsening past couple of months) Plan of Care Certification Date: 02/08/23 Next Certification Due Date: 03/22/23 Patient Identified by Name and Date of : Yes REHABILITATION AND SPORTS THERAPY PHYSICAL THERAPY PROGRESS REPORT PLAN OF CARE UPDATE: Assessment: Jaime Vega demonstrates difficulty with car transfers, sitting, bending, and kneeling and improvements in walking and sleeping. He has progressed toward goals. Patient continues to present with impairments in overall function, range of motion, sensation, and symptom management that interfere with kneeling, squatting, sitting, dressing, bending (don/doffing shoes and socks) . Current prognosis is Good due to: current objective clinical presentation, good overall health status, good support system/ coping skills . He will benefit from continued skilled therapy services to meet the updated goals for this plan of care as noted below. Goals for Episode of Care: created on 02/08/23 through 03/22/23 Goals updated on 03/22/2023. [place] in home exercise program. (Met) Patient will decrease pain rating by 2 points to meet minimal clinical important difference for numeric pain rating scale. (Not Met) Patient will increase active ROM of lumbar spine to fingertips to tops of feet and hip rotation WNL to allow pt to to improve performance of ADLs. (Not Met) Patient will demonstrate increase in core trunk/low back strength to 5/5 during manual muscle testing in order to improve function for home management tasks, moderate to heavy functional tasks, prior functional tasks, and work tasks. (Not Met) Patient will increase flexibility of hamstrings and piriformis to 60 degrees and WNL to improve ability to maintain proper posture, improve mechanics, and decrease pain. (Not Met) Perform sleeping;walking;kneeling;squatting;si tting;dressing; donning socks/shoes, getting in/out of car with decreased report of symptoms/pain in 4-8 weeks. (Partially Met) Improve postural awareness. (Met) Patient Goals: To reduce or get rid of the pain. Planned Interventions, Frequency, and Duration: 2x/week, 4 weeks Total Number of Visits Planned: 8 Patient to be seen for Therapeutic exercise (86875), Neuromuscular re-education (58348), Manual therapy (00494), Patient/Family/Caregiver Education, Self-chcf management (85929) PLAN FOR NEXT VISIT: Continue with extension based exercise and manual pelvic traction for pain relief. SUBJECTIVE: Pt states he feels he has had worse pain lately. He notes even with pain meds (Ibuprofen, Tylenol) pain is not improved. Describes hpersensitivity on R lower calf feels cold. Pt states he got about 45 min to an hour of relief after the pelvic traction, then symptoms returned. Functional Limitations: kneeling, squatting, sitting, dressing, bending (don/doffing shoes and socks) Pain: Pain Pain Level: 9 Pain Location: Low Back/Lumbar Spine - Right, Buttocks - Right, Hip - Right, Thigh - Right, Calf - Right Post Treatment Pain Post Treatment Pain Level: 4 (3-4/10) Post Treatment Pain Location: (lateral calf and top of foot) Post Treatment Symptoms: no longer cold/numbness PROMIS Scales Higher is Better 02/16/2023 Phys Func - Score 38 (moderate dysfunction) Phys Func - Percentile 12 % Self-Eff Symptom - Score 43 (Average) Self-Eff Symptom - Percentile 24 % T-scores: mean of general population = 50. 5 points is clinically meaningfully difference Percentiles provide an indication of how the patient's score ranks in relation to the general population. Higher percentile rankings indicate better function/quality of life. 50th percentile is the average of the general population and indicates half of respondents had a worse score. OBJECTIVE MEASURES WITH LEVEL OF FUNCTION: Lumbar Spine AROM Lumbar Flexion: (fingertips to mid tibias, increased pain and into leg) Lumbar Extension: Major limitation (caused R foot numb/tingly) Pt noted significant relief of symptoms during manual pelvic traction treatment. TREATMENT: Therapeutic Exercise: 1: prone lying (numbness lateral R foot, burning, stinging in R low back) 2: Prone prop on elbows x 5 min (decreased pain intensity, R ankle/foot achey) 3: instructed pt to perform these positions as much as he can during the day for relief of symptoms. Skilled Intervention: Patient was educated in proper exercise technique and purpose for exercises. Reviewed and educated patient on additions/changes for home exercise program. Skilled judgment was used in selection of appropriate interventions. Correct performance of therapeutic exercises was facilitated with verbal and visual cuing. Additional time necessary for objective measurements and reassessment due to plan of care update. Patient education as noted. Manual Therapy: 1: Manual lumbar belt traction with pt BLE elevated on stool with caudal pull to tolerance x 12 minutes. Skilled Intervention: Manual skills to improve joint mobility, ROM, and decrease pain. Utilized anatomy knowledge of the therapist, and assessment of patient's response to intervention. Billing Therapeutic Exercise Treatment Minutes: 35 Manual TherapyTreatment Minutes: 12 Skilled Treatment Time Minutes (timed and untimed codes): 45 Total Session Time (minutes): 45 Session Start Time : 1620 Session Stop Time : 1705 Janice Anne PT documented in this encounter [facility] 03-10-2023 History of Present illness Narrative Episode Visit Count: 4 Therapist That Will Accept/Oversee The Plan Of Care: Janice Anne Start of Care Date: 02/08/23 Onset Date: 11/21/22 (years ago, worsening past couple of months) Plan of Care Certification Date: 02/08/23 Next Certification Due Date: 03/22/23 Patient Identified by Name and Date of : Yes REHABILITATION AND SPORTS THERAPY PHYSICAL THERAPY TREATMENT NOTE ASSESSMENT: Jaime Vega tolerated the session with decreased activity tolerance due to pain in low back and radicular symptoms in RLE. He demonstrated improvements in lumbar extension ROM with continued reps of prone press ups with centralization. The patient will continue to benefit from ongoing skilled physical therapy to progress toward set goals. PLAN FOR NEXT VISIT: PN SUBJECTIVE: Pt reports that throughout the course of the day he has already take 4, 500mg pain reliever and hasn't touched the pain at all. Pt states only having about 45 minutes of relief after last session. Pt states when air would blow on his R leg, it would feel numb. Pt states he is about ready to go have something stuck in his back because the pain is lalo bad. He states that when he goes to cough or sneeze, he feels like the bulge is going to pop out of his skin. He reports that occasionally when he has the pain, he gets super hot and feels like he is going to get sick and his skin turns red. Pt denies numbness in sacral region when asked, but sometimes when turning a certain way he does have some urinary urgency, like he needs to urinate but has not lost bowel or bladder control. Pt feels that if he would keep turnging that he may lose bladder control, but stops before it gets to that point. Pain: Pain Pain Level: 10 Pain Location: Low Back/Lumbar Spine - Right, Back, Calf - Right, Buttocks - Right Post Treatment Pain Post Treatment Pain Location: Low Back/Lumbar Spine - Right, Back OBJECTIVE MEASURES WITH LEVEL OF FUNCTION: TREATMENT: Therapeutic Exercise: 1: Prone prop x 5 minutes, then 1 minute inbetween sets of prone press ups. 2: Prone press ups 5x10 (centralized symptoms) 3: LTR to L only x 5. (felt good while performing, but while resting, really started to burn) Skilled Intervention: Patient was educated in proper exercise technique and purpose for exercises. Skilled judgment was used in selection of appropriate interventions. Correct performance of therapeutic exercises was facilitated with verbal cuing. Self-Alf Management: 1: *Education on cauda equina syndrome due to pt having urgency qith increased pain with moving his back a certain way . Encouraged pt to go to ED for further assesment. Pt hesistant due to possible wait at ED. Education on progression of symptoms and outcomes if he has new or worse symptoms and to go to ED immediatley. Skilled Intervention: Skilled judgment in the selection of proper modification for activity of daily living/home management based on clinical presentation, deficits, and needs. Reviewed patient specific diagnosis in relation to activities of daily living/home management. Billing Therapeutic Exercise Treatment Minutes: 26 Self-Care/Home Management Treatment Minutes: 12 Total Session Time (minutes): 38 Session Start Time : 171 Session Stop Time : 175 LIS Bradford PT documented in this encounter [facility] 02-16-2023 History of Present illness Narrative Episode Visit Count: 2 Therapist That Will Accept/Oversee The Plan Of Care: Janice Anne Start of Care Date: 02/08/23 Onset Date: 11/21/22 (years ago, worsening past couple of months) Plan of Care Certification Date: 02/08/23 Next Certification Due Date: 03/22/23 Patient Identified by Name and Date of : Yes REHABILITATION AND SPORTS THERAPY PHYSICAL THERAPY TREATMENT NOTE ASSESSMENT: Jaime Vega tolerated the session with decreased symptoms and expected muscle soreness. He demonstrated difficulty with hooklying TA activation in supine and improvements in R hip flexibility with piriformis stretching. The patient will continue to benefit from ongoing skilled physical therapy to progress toward set goals. PLAN FOR NEXT VISIT: Asses duration of relief from manual traction. Asses response to sciatic nerve glide. Continue with manual lumbar traction. SUBJECTIVE: Pt reports that his back is okay, but what ever is going on with the disc and the RLE are really bothering him. Pt reports that he has not taken any Ibuprofen for at least the last 3-4 days, didn't really seem to help. Pain: Pain Pain Level: 9 Pain Location: Leg - Right Description: Burning, Stabbing, Tingling, Numbness Post Treatment Pain Post Treatment Pain Level: 6 Post Treatment Pain Location: Leg - Right OBJECTIVE MEASURES WITH LEVEL OF FUNCTION: TREATMENT: Therapeutic Exercise: 1: Supine sciatic nerve glide 2x5 RLE (rest in between each set due to fatigue and amount of pull pt was feeling) 2: Supine piriformis stretch 3x30 seconds R 3: Hooklying TA activation x10 with 5 second holds (would rather due in sitting.) Skilled Intervention: Patient was educated in proper exercise technique and purpose for exercises. Skilled judgment was provided in selection of appropriate interventions. Correct performance of therapeutic exercises was facilitated with verbal and visual cuing. Manual Therapy: 1: Manual lumbar belt traction with pt BLE elevated on stool with caudal pull to tolerance x 12 minutes. Skilled Intervention: Manual skills to improve joint mobility, ROM, and decrease pain. Utilized anatomy knowledge of the therapist, and assessment of patient's response to intervention. Self-Alf Management: 1: *Education on getting into and out of car with decreased lumbar flexion. Pt educated to put bag on seat and back himself into seat and spin legs in. Skilled Intervention: Skilled judgment in the selection of proper modification for activity of daily living/home management based on clinical presentation, deficits, and needs. Reviewed patient specific diagnosis in relation to activities of daily living/home management. Activity progression based on professional judgement. Billing Therapeutic Exercise Treatment Minutes: 25 Manual TherapyTreatment Minutes: 12 Self-Care/Home Management Treatment Minutes: 8 Total Session Time (minutes): 45 Session Start Time : 1445 Session Stop Time : 1530 LIS Bradford PT documented in this encounter [facility] 02-08-2023 History of Present illness Narrative Episode Visit Count: 1 Therapist That Will Accept/Oversee The Plan Of Care: Janice Anne Start of Care Date: 02/08/23 Onset Date: 11/21/22 (years ago, worsening past couple of months) Plan of Care Certification Date: 02/08/23 Next Certification Due Date: 03/22/23 Patient Identified by Name and Date of : Yes REHABILITATION AND SPORTS THERAPY PHYSICAL THERAPY EVALUATION PLAN OF CARE: Assessment: Jaime Vega presents with diagnosis of bulging lumbar disc and spinal stenosis lumbar region that interferes with sleeping, walking, kneeling, squatting, sitting, dressing (donning socks/shoes, getting in/out of car) . He presents with impairments in flexibility, overall function, posture, range of motion, sensation, strength, and symptom management. Patient did not complete the PROMIS (Patient Reported Outcome Measures Information System). Prognosis for therapy is Good due to: current objective clinical presentation, good overall health status, good support system/ coping skills, positive past response to therapy, Prognosis may be limited due to chronic nature of impairments . He will benefit from skilled therapy services to meet the goals established for this plan of care as noted below. Goals for Episode of Care: created on 02/08/23 through 03/22/23 [place] in home exercise program. Patient will decrease pain rating by 2 points to meet minimal clinical important difference for numeric pain rating scale. Patient will increase active ROM of lumbar spine to fingertips to tops of feet and hip rotation WNL to allow pt to to improve performance of ADLs. Patient will demonstrate increase in core trunk/low back strength to 5/5 during manual muscle testing in order to improve function for home management tasks, moderate to heavy functional tasks, prior functional tasks, and work tasks. Patient will increase flexibility of hamstrings and piriformis to 60 degrees and WNL to improve ability to maintain proper posture, improve mechanics, and decrease pain. Perform sleeping;walking;kneeling;squatting;si tting;dressing; donning socks/shoes, getting in/out of car with decreased report of symptoms/pain in 4-8 weeks. Improve postural awareness. Patient Goals: To reduce or get rid of the pain. Planned Interventions, Frequency, and Duration: Current Frequency: 2x/week Duration: 6 weeks Total Number of Visits Planned: 12 Planned Treatment Interventions: Therapeutic exercise (33684), Neuromuscular re-education (91412), Manual therapy (01268), Patient/Family/Caregiver Education PLAN FOR NEXT VISIT: Assess response to HEP. Review to insure correct performance. Progress core strengthening exercises and may add stretches as appropriate. May trial manual intermittent pelvic traction for pain relief. Continue postural correction as needed. Patient demonstrates good understanding of plan of care and treatment. The above goals and plan of care were discussed and agreed upon by patient/family. SUBJECTIVE: A few months ago went to ER and kidneys were hurting. Did xray and found bulging disc is starting to hit the nerve. Some days are better than others. If sleeps on R side all night long can barely get out of bed in the morning. Pain is constant, but varies in intensity. Lately has been taking 800mg Ibuprofen which doesn't do much. Majority of pain is posterior leg hip to heel, sometimes burning pain, sometimes shock. R lateral lower leg feels numb (can feel pressure of touch, but has a numbness to it.) Patient Goals: To reduce or get rid of the pain. 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 Intake Information: Prescription present Previous Treatment: NSAIDs Red Flags Cauda Equina Syndrome Red Flags: (denies) Spine History Previous Episodes: Yes Previous Spine Episodes: years ago, resolved with therapy (PT) Sleeping Position: Side lying left Sleep Affected by Pain: Not affected by pain (hurts worse, stiff in mornings) Pain: Pain Pain Level: 8 (up to a 9-10) Pain Location: Hip - Right, Thigh - Right, Calf - Right, Foot - Right (posterior) Description: Burning, Numbness, Shooting, Tingling Frequency: Continuous Post Treatment Pain Post Treatment Pain Level: (not rated numerically) Post Treatment Pain Location: Buttocks - Right, Thigh - Right, Knee - Right, Calf - Right, Foot - Right Post Treatment Pain Description: (annoying) PROMIS Scales T-scores: mean of general population = 50. 5 points is clinically meaningfully difference Percentiles provide an indication of how the patient's score ranks in relation to the general population. Higher percentile rankings indicate better function/quality of life. 50th percentile is the average of the general population and indicates half of respondents had a worse score. OBJECTIVE MEASURES WITH LEVEL OF FUNCTION: Posture / Alignment Posture: Decreased lumbar lordosis Lumbar Spine AROM Lumbar Flexion: (fingertips to ankles) Lumbar Extension: Moderate limitation LE Flexibility Flexibility: Straight Leg Raise R SLR Flexibility: 30deg, post knee pain (increased distally with ankle dorsiflexion) L SLR Flexibility: 70deg. LE Strength Trunk Strength: 4/5 Education: Education Learning Preferences: Demonstration, Explanation Barriers: None Learning/educational needs: Home exercise program, Plan of Care, Posture Education Provided: Yes, see treatment interventions for education provided Education Provided To: Patient Education Mode/Type: Demonstration, Explanation/Discussion, Literature/Printed Materials, Performance Response to Education/Teach Back: States/Identifies, Return Demonstration TREATMENT: PT Treatment Interventions: Therapeutic Exercise, Neuromuscular Re-Education Evaluation Therapeutic Exercise: 1: *seated (or hooklying) TA iso abs 5 sec holds x 10 2: *seated scapular retraction 5 sec holds x 10 Skilled Intervention: Patient was educated in proper exercise technique and purpose for exercises. Skilled judgment was provided in selection of appropriate interventions. Provided written instruction for home exercise program to facilitate proper performance and compliance. Correct performance of therapeutic exercises was facilitated with verbal and visual cuing. Patient education as noted. Neuromuscular Re-Education: 1: Educated pt in postural correction, especially in sitting. Instructed in use of lumbar cushion or towel for support during sitting, expecially when driving or prolonged sitting. Recommended to break up prolonged times of sittign with frequent standing/walking and position changes. 2: Educated pt in lumbar spien anatomy as it relates to his diagnosis and current symptoms. Skilled Intervention: Skilled judgment used to assess appropriate program for balance and coordination activity. Education in sitting posture using a lumbar roll and slouch/correction for body awareness. Education in proprioceptive/kinesthetic awareness during sitting and standing. Education and demonstration for posture and positioning for pain management. Patient education as noted. Billing * Evaluation Low Complexity: 1 Unit Therapeutic Exercise Treatment Minutes: 10 Neuromuscular Re-Education Treatment Minutes: 15 Skilled Treatment Time Minutes (timed and untimed codes): 40 Total Session Time (minutes): 40 Session Start Time : 1725 Session Stop Time : 1805 Janice Anne PT documented in this encounter [facility] 01-07-2023 Instructions Risa Steiner PA-C - 01/07/2023 3:18 PM EDT Instructions regarding gabapentin medication: The pill bottle will indicate that you are to take 1 pill 3 times a day, but most individuals will find that it will help to slowly start the medication as follows: For the first few days, start by taking 1 pill an hour or two before bedtime. This may help you to sleep a little bit better and you will be sleeping off some of the side effects. When you get to a point where you can wake up and not feel too many residual side effects, then go ahead and start to take an additional pill. You can split this into a bedtime dose and a daytime dose if you wish or you could consider taking both pills before bedtime. It may take a while longer for you to get used to 2 pills. Finally, if/when you get to the point that you tolerate both pills well, feel free to add a third dose. Make sure that you are not taking all 3 pills at 1 time. Make sure to separate the third pill from the other 2. Remember that since this medication was originally designed as an anti-seizure medication, the following 4 things are also true: It often takes a while (about 2-3 weeks) for this medication to have its full effect for your nerves. It must be taken regularly in order for it to work well. You must also taper off of it slowly when you decide to discontinue therapy (normally, 1-2 weeks' taper is fine). Side effects will often (not always) fade away as you continue the medication. If you can only manage 1 or 2 pills a day (without having too many side effects), that is also fine--as long as you notice some relief of symptoms. The expected side effects are very similar to what you might expect for either an opioid or a muscle relaxant: Sleepy, groggy, balance problems, feeling a little hazy, disoriented, or confused. documented in this encounter [facility] 01-07-2023 History of Present illness Narrative Images from the original note were not included. Risa Steiner PA-C [facility] [address] [address] 01/07/2023 ASSESSMENT AND PLAN: Assessment : Encounter Diagnosis ICD-10-CM 1. Bulging lumbar disc M51.36 CONSULT TO PHYSICAL THERAPY XR LUMBAR MOTION 4V AP/LAT/ FLEX/EXT meloxicam (MOBIC) 15 mg tablet gabapentin (NEURONTIN) 300 mg capsule 2. 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 He is here for evaluation of acute going on chronic right buttock and lower extremity radiating symptoms 3 months duration without specific injury. He has had notable nerve Symptoms on the right side with diminished sensation roughly in L5 distribution He was seen outside of [facility] for x-rays at a chiropractor but these are not available for review today. Last PT was 6 years ago EXAM Highlights: He is slow to mobilize from sitting to standing and tends to walk and stand with slight forward tilt/positive sagittal balance. He has positivity to right SLR He has diminished balance due to right leg pain standing on his right foot. I cannot detect focal motor deficits in the lower extremities There are normal reflexes Lumbar motion reproduces pain in flexion IMAGING: March 09, 2019 x-rays show minimal leg length discrepancy left shorter than right and essentially age-appropriate disc degeneration without fracture or listhesis SUMMARY/PLAN: He has right L5 radiculopathy with early conservative management complete I am recommending continued conservative management with supervised PT, high-dose meloxicam, gabapentin. We reviewed off label use, importance of ramping and weaning, expected side effects of gabapentin and sent him home with written instructions on his AVS. He does not appear to have severe nerve dysfunction in terms of reflexes or strength but he has appreciable pain and numbness consistent with L5 distribution on the right. I would recommend lumbar MRI if he completes the above conservative management and still has symptoms similar to what we had described here. Plan : DIAGNOSTIC TESTING: -X-ray views will be obtained to better evaluate bony structures. -Dynamic plain radiographs of the Lumbar spine are ordered. -An MRI is ordered to better delineate the soft tissue structures contributing to the patient's current symptoms, including the intervertebral disks, facet joints, spinal ligaments and neural elements. The study will aid with evaluating the need for, and planning, future interventional procedures. REFERAL FOR SERVICES: -Physical therapy will be instituted. MEDICATIONS: -See prescribed medication list for this encounter. -Nerve membrane stabilizer medication (gabapentin or pregabalin) was prescribed. Off-label use, importance of (and suggested schedule for) ramping and weaning, and expected side effects discussed with the patient during today's visit. ACTIVITY RECOMMENDATIONS: -The patient is encouraged to avoid bed rest and maintain normal activity. TOBACCO RECOMMENDATIONS: -Tobacco cessation discussed and encouraged. NUTRITION RECOMMENDATIONS: -The patient is carrying a significant amount of weight above an ideal BMI. We discussed how this impacts overall health and back pain. FOLLOW-UP: -The patient is instructed to return after six weeks of therapy. ADDITIONAL DISCUSSION: -I discussed signs and symptoms of cauda equina syndrome were discussed in detail. The patient is advised to seek emergent care immediately should they occur. -We discussed the difference between hurt vs harm as it relates to chronic pain. This document has been created with the use of voice recognition technology. It may contain inaccuracies: (e.g. misspellings, inaccurate syntax or word sense) that have escaped review. Time spent: 45 minutes today with this patient visit. This includes [id number] time, review of chart records regarding conservative care history, spine-pertinent imaging, and communication/care coordination with referring provider, problem-specific history-taking and counseling/education regarding treatment options. cc: Conor Pantoja [address] [facility] [id number] Results of consultation to be transmitted via electronic medical record for those providers who practice within [facility] or with access to [place] via [facility], or via letter. ###################################### ################################## CHIEF COMPLAINT: Patient is here for the lower back, right hip, and right leg pain - pain goes down to the right foot. Has this pain for years but in the last 3 months, pain got worse. Level of th pain is at 9/10. Feels like right foot is swollen( per patient). Sitting, walking, and standing up is painful. 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 This was completed 6 years ago. The therapy provided a notable amount of relief, however it did not last. Spinal Injections: He has not gotten prior spinal injections. Other: None Current Outpatient Medications Medication Sig Dispense Refill clotrimazole-betamethasone (LOTRISONE) cream Apply to affected area twice daily. APPLY TO AFFECTED AREA 45 g 4 atomoxetine (STRATTERA) 25 mg capsule Take 1 capsule by mouth every 12 hours 6am/6pm. guanFACINE (TENEX) 1 mg tablet Take 1 mg by mouth daily at bedtime. omeprazole (PRILOSEC) 40 mg capsule Take 1 capsule by mouth once daily. 30 capsule 5 melatonin 3 mg tablet Take 1 tablet approximately 7PM nightly. 30 tablet 5 fluticasone-salmeterol HFA (ADVAIR HFA) 115-21 mcg/actuation inhaler Inhale 2 Puffs as instructed twice daily. Rinse mouth after use. 12 g 11 albuterol (PROVENTIL) 2.5 mg /3 mL (0.083 %) nebulizer solution Use 3 mL via nebulizer every 4 hours as needed for wheezing/shortness of breath. Use over 5-15minutes. 30 Vial 1 ipratropium-albuterol (DUONEB) 0.5 mg-3 mg(2.5 mg base)/3 mL nebu Inhale 3 mL as instructed every 6 hours as needed (wheezing). 30 mL 11 albuterol HFA (VENTOLIN HFA) 90 mcg/actuation inhaler INHALE 2 PUFFS BY MOUTH DIRECTED EVERY 4 HOURS NEEDED FOR WHEEZING OR SHORTNESS OF BREATH 18 g 3 CPAP Initiate Auto PAP @ 5-20 cm of water with humidification. Mask (per patient preference) optional chin strap (if indicated) , filters, tubing, humidifier and lifetime supplies. 1 Device 0 fluticasone (FLONASE) 50 mcg/actuation nasal spray Use 2 Sprays in each nostril once daily. 1 Bottle 11 cetirizine (ZYRTEC) 10 mg tablet Take 1 tablet by mouth once daily as needed. 30 tablet 11 predniSONE (DELTASONE) 10 mg tablet 2 po q day for 5 days, then 10 mg po q day for 5 days. (Patient not taking: Reported on 12/22/2022) 15 tablet 0 nicotine polacrilex (NICORETTE) 2 mg gum TAKE 1 EACH BY MOUTH EVERY 2 HOURS NEEDED. (Patient not taking: Reported on 12/02/2022) 200 Each 0 olopatadine (PATANOL) 0.1 % ophthalmic solution Use 1 Drop in the right eye twice daily. (Patient not taking: Reported on 12/22/2022) 5 mL 0 No current facility-administered medications for this visit. Allergies: Acetaminophen-Codeine, Seasonal Allergies, and Singulair [Montelukast Sodium] PAST MEDICAL HISTORY Diagnosis Date Abdominal pain Anxiety Asthma Depression Sleep apnea PAST SURGICAL HISTORY Procedure Laterality Date COLONOSCOPY 06/15/2022 repeat in 1 year with MAC COLONOSCOPY FLX DX W/COLLJ SPEC WHEN PFRMD 08/21/2015 Colonoscopy with mac ESOPHAGOGASTRODUODENOSCOPY TRANSORAL DIAGNOSTIC 08/21/2015 EGD with mac PAST SURGICAL HISTORY OF fatty cyst removed from stomach PAST SURGICAL HISTORY OF wisdom teeth Social History Tobacco Use Smoking status: Never Smokeless tobacco: Current Types: Chew Vaping Use Vaping Use: Never used Substance Use Topics Alcohol use: No Drug use: No FAMILY HISTORY Problem Relation Age of Onset Heart Father Colon Cancer Father other (colitis) Father other (autism) Son GI issues/ear problems/adhd REVIEW OF SYSTEMS: Constitutional: (-) Fever/Chills (+) Night Sweats (-) Weight Gain (-) Weight Loss (+) Fatigue Gastrointestinal: (-) Abdominal Pain (-) Diarrhea (-) Constipation (-) Nausea/Vomiting (+) Heart Burn Cardiovascular: (+) Chest Pain (-) Palpitations (-) Lightheadedness (+) Swelling of Ankles (-) Hx Heart Surgery/Stent Respiratory: (+) Short of Breath (-) Cough (+) Snoring CPAP Neurologic: (-) Headache (+) Blurry Vision (-) Fainting Skin: (-) Rashes (-) Itching (-) Other Lesions Psychiatric: (+) Depression (+) Anxiety (-) Suicidal Thoughts Genitourinary: (-) Frequency (-) Urgency Endocrine: (-) Thyroid Disorder (-) Diabetes Hematologic: (-) Prolonged Bleeding (-) Easy Bruising ###################################### ###################################### ###################################### ############### PHYSICAL EXAM: Blood pressure 129/81, pulse 85, height 175.3 cm (5' 9), weight 111.8 kg (246 lb 6.4 oz), SpO2 99 %. Body mass index is 36.39 kg/m . General: Patient is a(n) average historian. The patient appears approximately the recorded age and is sitting uncomfortably in the examining room. The patient is average height in stature and is obese in appearance. This individual has difficulty arising from a sitting position and does have difficulty acquiring a full, upright position when standing. Station and Gait: flexed posture and antalgic gait leaning forward and favoring the right lower extremity The patient is able to but has difficulty in attempting to walk in a tandem gait. MENTAL STATUS EXAMINATION: The patient was casually attired. The patient had good eye contact and rapport was average to establish. The patient appeared to be alert and oriented in all spheres. The patient's overall medical judgment appeared to be good.The patient's motivation for treatment was judged based on today's encounter to be good. SPINE: Lumbar Lordosis: Decreased/flattened Thoracic Kyphosis: Normal RANGE OF MOTION: Flexion: abnormal, decreased motion below expected for age and weight Pain: Yes, severe pain Extension: normal, as expected for age and weight Pain: No Lateral Bending: Right normal, as expected for age and weight Pain: Yes, axial pain Left normal, as expected for age and weight Pain: No PALPATION TENDERNESS: Moderate tenderness at: posterior pelvis and gluteal region Hyperesthesia present: No Regional symptoms present: No Increased pain with axial loading: No Distraction: Normal Pain responses: appropriate NEUROLOGIC EXAM: MOTOR: Walk on Toes: Right: Yes Left: Yes Walk on Heels: Right: Yes Left: Yes Requires verbal cues to minimize cog-wheel or give-way resistance: No Hip Flexor R: 5/5 L: 5/5 Hip Abductor R: 5/5 L: 5/5 Hip Adductor R: 5/5 L: 5/5 Knee Extension R: 5/5 L: 5/5 Foot Dorsiflexion R: -4/5 L: 5/5 Foot Plantar Flexion R: 5/5 L: 5/5 Ext Hallicus Longus R: -4/5 L: 5/5 Toe Extensors R: 4/5 L: 5/5 SENSATION to Light Touch: Lumbar: L5: R: Abnormal: Noted findings are decreased sensation to light touch within this dermatome., L: Normal REFLEXES: Lower Extremity: All Lower Extremity reflexes symmetrically normal. Clonus: R: 0 beats/Normal L: 0 beats/Normal Babinski Sign: Negative bilaterally. Upper Extremity: Zamudio's Sign: Negative bilaterally. VASCULAR: Skin appearance: Right: Warm/pink Left: Warm/pink Capillary refill: Right: brisk Left: brisk ADDITIONAL MUSCULOSKELETAL EXAM: HIP/PELVIS EXAM: Tenderness over the PSIS: Right: Yes Left: No Greater Trochanteric pain: Right: No Left: No SPECIAL TESTS: Straight Leg Raise: positive on the right Contralateral Straight Leg Raise: negative bilaterally IMAGING STUDIES: See discussion above documented in this encounter [facility] 12-02-2022 History of Present illness Narrative Patient presents with: ER F/U HPI: Patient presents today for office visit for ER follow up. Seen in [facility] ER on 11/27/[address] showing no renal stones or hydronephrosis. UA was NEG. Denies urinary symptoms CT showed large posterior disc bulge osteophyte complex at L4-5 causing severe spinal stenosis. Complaints of sciatic nerve pain on the right side. Progressing over last couple weeks. Pain going down right leg into calf. Some numbness. No tingling. Refers to the pain as burning. Denies weakness. Prednisone completed yesterday. Was given 40 mg x 5 days. Did improve some. Started a few weeks ago. No trauma. Complains of lower back pain. Pain comes and goes. Legs don't feel week. Is numb on the right leg. More in the back. No issues controlling bowel or bladder. MEDICATIONS: Current Outpatient Medications Medication Sig atomoxetine (STRATTERA) 25 mg capsule Take 1 capsule by mouth every 12 hours 6am/6pm. guanFACINE (TENEX) 1 mg tablet Take 1 mg by mouth daily at bedtime. melatonin 3 mg tablet Take 1 tablet approximately 7PM nightly. omeprazole (PRILOSEC) 40 mg capsule Take 1 capsule by mouth once daily. fluticasone-salmeterol HFA (ADVAIR HFA) 115-21 mcg/actuation inhaler Inhale 2 Puffs as instructed twice daily. Rinse mouth after use. olopatadine (PATANOL) 0.1 % ophthalmic solution Use 1 Drop in the right eye twice daily. polyethylene glycol 3350 (MIRALAX, GLYCOLAX) 17 gram/dose powder Use as directed for Miralax / Gatorade Bowel Prep Kit Gatorade Sports Drink Use as directed for Miralax / Gatorade Bowel Prep Kit albuterol (PROVENTIL) 2.5 mg /3 mL (0.083 %) nebulizer solution Use 3 mL via nebulizer every 4 hours as needed for wheezing/shortness of breath. Use over 5-15minutes. ipratropium-albuterol (DUONEB) 0.5 mg-3 mg(2.5 mg base)/3 mL nebu Inhale 3 mL as instructed every 6 hours as needed (wheezing). albuterol HFA (VENTOLIN HFA) 90 mcg/actuation inhaler INHALE 2 PUFFS BY MOUTH DIRECTED EVERY 4 HOURS NEEDED FOR WHEEZING OR SHORTNESS OF BREATH CPAP Initiate Auto PAP @ 5-20 cm of water with humidification. Mask (per patient preference) optional chin strap (if indicated) , filters, tubing, humidifier and lifetime supplies. fluticasone (FLONASE) 50 mcg/actuation nasal spray Use 2 Sprays in each nostril once daily. cetirizine (ZYRTEC) 10 mg tablet Take 1 tablet by mouth once daily as needed. nicotine polacrilex (NICORETTE) 2 mg gum TAKE 1 EACH BY MOUTH EVERY 2 HOURS NEEDED. (Patient not taking: Reported on 12/02/2022) No current facility-administered medications for this visit. ALLERGIES: ALLERGIES Allergen Reactions Acetaminophen-Codei* Rash Seasonal Allergies Unknown CATS, DOGS, COCKROACHES, MOLDS, TREES, GRASSES, WEEDS AND RAGWEED VERIFIED BY SKIN TESTING Singulair [[place]* Other: See Comments irritable PAST MEDICAL HISTORY Diagnosis Date Abdominal pain Anxiety Asthma Depression Sleep apnea PAST SURGICAL HISTORY Procedure Laterality Date COLONOSCOPY 06/15/2022 repeat in 1 year with MAC COLONOSCOPY FLX DX W/COLLJ SPEC WHEN PFRMD 08/21/2015 Colonoscopy with mac ESOPHAGOGASTRODUODENOSCOPY TRANSORAL DIAGNOSTIC 08/21/2015 EGD with mac PAST SURGICAL HISTORY OF fatty cyst removed from stomach PAST SURGICAL HISTORY OF wisdom teeth FAMILY HISTORY Problem Relation Age of Onset Heart Father Colon Cancer Father other (colitis) Father other (autism) Son GI issues/ear problems/adhd Social History Tobacco Use Smoking status: Never Smokeless tobacco: Current Types: Chew Vaping Use Vaping Use: Never used Substance Use Topics Alcohol use: No Drug use: No Reviewed current medications, allergies, past medical history, surgical history, family history and social history today. REVIEW OF SYSTEMS All other reviewed and negative other than HPI. VITALS: BP 120/82 Pulse 83 Ht 174 cm (5' 8.5) Wt 114.3 kg (252 lb) SpO2 98% BMI 37.76 kg/m Last 4 Encounter Wt Readings: Date: Wt: 10/14/2022 113.3 kg (249 lb 12.8 oz) 07/27/2022 114.9 kg (253 lb 6.4 oz) 06/15/2022 117.9 kg (259 lb 14.8 oz) 05/12/2022 117.9 kg (260 lb) PHYSICAL EXAMINATION: General appearance: Well appearing, alert, in no acute distress, well-hydrated, well nourished. Skin: Skin color, texture, turgor normal, no suspicious rashes or lesions BACK: Normal curvature of spine. No spine tenderness. Straight leg test negative. Deep tendon reflexes 2+/4 at patellas. Normal lower extremity strength. ASSESSMENT/PLAN: 1. Bulging lumbar disc - ICD9: 722.52, ICD10: M51.36 (primary diagnosis) - Discussed risks and benefits of new medication with the patient. Advised them to call if any side effects or questions. Red flags for re-assessment reviewed with patient in detail. - see spine given ct findings. - PREDNISONE 10 MG TABLET - [facility] 2. Spinal stenosis of lumbar region without neurogenic claudication - ICD9: 724.02, ICD10: M48.061 - PREDNISONE 10 MG TABLET - [facility] 3. GERD with esophagitis - ICD9: 530.11, ICD10: K21.00 - OMEPRAZOLE 40 MG CAPSULE,DELAYED RELEASE Conor Pantoja MD Medical Decision Making: Problems: Moderate: New problem with uncertain prognosis Data: Unique test result(s) reviewed: 1 Risk: Moderate: Drug management Medical Decision Making Level: 4 - Moderate documented in this encounter [facility] 11-06-2022 History of Present illness Narrative ESTABLISHED PATIENT VISIT (virtual visit with video) For this virtual visit, the patient has been identified by name and (MRN and photo identification as well if available). Those taking part in visit: Patient, physician via [employer]. Consent for this visit received from patient. I have communicated my name and active licensure. The patient's identity and physical location were verified at the time of this visit ([place]). The patient has been informed of the risks and benefits of -- and alternatives to -- treatment through a remote evaluation and consents to proceed with the evaluation remotely. HISTORY OF PRESENT ILLNESS: Jaime Vega is a 41 year old male, with a PMH significant for and per last office visit of 07/27/22: 1. KAI on CPAP - ICD9: 327.23, V46.8, ICD10: G47.33, Z99.89 (primary diagnosis) Patient with no specific PAP complaints. Subjectively and objectively compliant and doing well with device (confirmed by PAP data download). Did advised patient to contact DME re questions as to whether his device was recalled (appears received post recall), as well as schedule in which he can receive PAP supplies. Encouraged PAP compliance. Confirmed and advised patient to clean and replace equipment regularly (washes with soap and water 3 times per week). Advised pt not to drive or operate heavy machinery if sleepy. Discussed with patient: the physiology of OSAS, medical conditions associated with OSAS (DM, HTN, CAD, Depression, Stroke, Headache...) and treatment options (UPPP, Dental appliances, CPAP...). Encouraged weight loss, and continued compliance with other medications. 2. Insomnia, unspecified type - ICD9: 780.52, ICD10: G47.00 Likely multifactorial including environmental and behaviorally induced insomnia as well as prior history of shift work disorder. Patient emphasizes not wanting sleep aids (I.e. ambien). However, willing to trial melatonin 3mg to see if it might advance circadian pattern. Will provide 3mg at 7PM with goal bedtime of 10PM. SE and ADRs d/w pt as well as physiology and treatment of circadian disorders. Consider CBTi in future if no improvement. Discussed with patient the importance of good sleep hygiene. PAP data download for past 90 days shows 85 days use for avg use of 7 hours and 14 minutes on days used. <=90% PAP setting is 8.0 cmH2O. Avg AHI is 1.2. Large leak - 6 seconds. Pt states not doing too bad. No new medical issues. Patient reports no issues with PAP device. Currently using nasal pillows. 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 No dry mouth. Insomnia persists until midnight or 1AM, even if tired. Cant let myself relax enough. States only took melatonin on weekends. When did take, felt like slept a little better. Waking about 7AM. States doesn't want to get out of bed. More awake now with PAP but still would prefer to stay asleep until 9PM. Never been a morning person. Avg 5 hours of sleep at night at best. REVIEW OF SYSTEMS GENERAL:No weight loss, malaise or fevers. HEENT:Negative for frequent or significant headaches, No changes in hearing or vision, no nose bleeds or other nasal problems RESPIRATORY: Negative for cough, wheezing or shortness of breath. CARDIOVASCULAR: Negative for chest pain, leg swelling or palpitations. LAB/IMAGING: Those performed since patient's last visit have been reviewed. WBC (k/uL) Date Value 09/03/2020 5.30 RBC (m/uL) Date Value 09/03/2020 4.83 Hemoglobin (g/dL) Date Value 09/03/2020 14.5 Hematocrit (%) Date Value 09/03/2020 43.5 MCV (fL) Date Value 09/03/2020 90.1 MCH (pg) Date Value 09/03/2020 30.0 MCHC (g/dL) Date Value 09/03/2020 33.3 RDW-CV (%) Date Value 09/03/2020 13.0 Platelet Count (k/uL) Date Value 09/03/2020 206 MPV (fL) Date Value 09/03/2020 11.4 Glucose (mg/dL) Date Value 09/03/2020 105 (H) BUN (mg/dL) Date Value 09/03/2020 15 Creatinine (mg/dL) Date Value 09/03/2020 1.11 Sodium (mmol/L) Date Value 09/03/2020 139 Potassium (mmol/L) Date Value 09/03/2020 4.3 Chloride (mmol/L) Date Value 09/03/2020 102 CO2 (mmol/L) Date Value 09/03/2020 27 Protein, Total (g/dL) Date Value 06/21/2018 7.7 Albumin (g/dL) Date Value 06/21/2018 4.6 Calcium, Total (mg/dL) Date Value 09/03/2020 8.6 Alkaline Phosphatase (U/L) Date Value 06/21/2018 104 Bilirubin, Total (mg/dL) Date Value 06/21/2018 0.5 AST (U/L) Date Value 06/21/2018 18 ALT (U/L) Date Value 06/21/2018 21 MEDICATIONS: melatonin 3 mg tablet^Take 1 tablet approximately 7PM nightly.^Disp: 30 tablet^Rfl: 5 nicotine polacrilex (NICORETTE) 2 mg gum^TAKE 1 EACH BY MOUTH EVERY 2 HOURS NEEDED.^Disp: 200 Each^Rfl: 0 omeprazole (PRILOSEC) 40 mg capsule^Take 1 capsule by mouth once daily.^Disp: 30 capsule^Rfl: 3 cloNIDine HCl (CATAPRES) 0.1 mg tablet^Take 1 tablet by mouth twice daily for 14 days.^Disp: 28 tablet^Rfl: 0 fluticasone-salmeterol HFA (ADVAIR HFA) 115-21 mcg/actuation inhaler^Inhale 2 Puffs as instructed twice daily. Rinse mouth after use.^Disp: 12 g^Rfl: 11 citalopram (CELEXA) 40 mg tablet^Take 1 tablet by mouth once daily.^Disp: 30 tablet^Rfl: 5 olopatadine (PATANOL) 0.1 % ophthalmic solution^Use 1 Drop in the right eye twice daily.^Disp: 5 mL^Rfl: 0 polyethylene glycol 3350 (MIRALAX, GLYCOLAX) 17 gram/dose powder^Use as directed for Miralax / Gatorade Bowel Prep Kit^Disp: 238 g^Rfl: 0 cyclobenzaprine (FLEXERIL) 10 mg tablet^Take 1 tablet by mouth three times daily as needed for muscle spasm.^Disp: 12 tablet^Rfl: 0 (Patient not taking: Reported on 07/27/2022) Gatorade Sports Drink^Use as directed for Miralax / Gatorade Bowel Prep Kit^Disp: ^Rfl: albuterol (PROVENTIL) 2.5 mg /3 mL (0.083 %) nebulizer solution^Use 3 mL via nebulizer every 4 hours as needed for wheezing/shortness of breath. Use over 5-15minutes.^Disp: 30 Vial^Rfl: 1 ipratropium-albuterol (DUONEB) 0.5 mg-3 mg(2.5 mg base)/3 mL nebu^Inhale 3 mL as instructed every 6 hours as needed (wheezing).^Disp: 30 mL^Rfl: 11 albuterol HFA (VENTOLIN HFA) 90 mcg/actuation inhaler^INHALE 2 PUFFS BY MOUTH DIRECTED EVERY 4 HOURS NEEDED FOR WHEEZING OR SHORTNESS OF BREATH^Disp: 18 g^Rfl: 3 CPAP^Initiate Auto PAP @ 5-20 cm of water with humidification. Mask (per patient preference) optional chin strap (if indicated) , filters, tubing, humidifier and lifetime supplies.^Disp: 1 Device^Rfl: 0 fluticasone (FLONASE) 50 mcg/actuation nasal spray^Use 2 Sprays in each nostril once daily.^Disp: 1 Bottle^Rfl: 11 cetirizine (ZYRTEC) 10 mg tablet^Take 1 tablet by mouth once daily as needed.^Disp: 30 tablet^Rfl: 11 HISTORIES PAST MEDICAL HISTORY Diagnosis Date Abdominal pain Anxiety Asthma Depression Sleep apnea FAMILY HISTORY Problem Relation Age of Onset Heart Father Colon Cancer Father other (colitis) Father other (autism) Son GI issues/ear problems/adhd SOCIAL HISTORY Social History Tobacco Use Smoking status: Never Smokeless tobacco: Current Types: Chew Vaping Use Vaping Use: Never used Substance Use Topics Alcohol use: No Drug use: No PHYSICAL EXAMINATION There were no vitals taken for this visit. GENERAL EXAM: General appearance: NAD, pleasant. HEENT: NC/AT, nasal congestion absent, no oral lesions, membranes moist. NECK: ROM nml. Lungs: No audible cough, wheeze, sob. NEUROLOGICAL EXAM: General: Awake, alert, oriented x3 (person,place,time), speech fluent, no dysarthria; comprehension, naming, repetition intact. . CN:EOMI, face symmetric, hearing is intact, palate and tongue movements are intact and symmetric. SCM and trapezius strength symmetric. Motor: Normal tone, bulk and strength (5/5) bilaterally (throughout extremities x4). Reflexes: JOHNSON equal and symmetric. Assessment and Plan: ASSESSMENT/PLAN: 1. KAI on CPAP - ICD9: 327.23, V46.8, ICD10: G47.33, Z99.89 (primary diagnosis) Doing well on PAP with both subjective and objective compliance as well as perceived benefit - any residual sleepiness likely due to irregular sleep schedule and sleep insufficiency. Encouraged continued PAP compliance. Reminded pt to clean and replace PAP equipment regularly. Advised pt not to drive or operate heavy machinery if sleepy. 2. 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 Did not give melatonin a chance for reasons as above. He is willing to try again. However, will now have patient only take 3mg at 7PM nightly with goal of advancing sleep onset and natural wake onset. Pt agrees with plan. No discomfort/RLS or racing thoughts contributing to delayed sleep onset. Conor Eng MD I spent a total of 20+ minutes on the date of the service which included preparing to see the patient, [id number] patient care, completing clinical documentation, obtaining and/or reviewing separately obtained history, performing a medically appropriate examination, counseling and educating the patient/family/caregiver, ordering medications, tests, or procedures, independently interpreting results (not separately reported), and communicating results to the patient/family/caregiver (results = PAP data download). documented in this encounter [facility] 07-27-2022 Instructions Conor Eng Jr., MD - 07/27/2022 11:16 AM EST Your most recent body mass index (BMI) that we have on record is 37.97 kg/m2. Obstructive sleep apnea (KAI) worsens with an increase in weight; reduction in weight may improve or resolve your KAI. If you are not already seeking treatment, there are resources available at the [facility] such as a nutrition consultation or referral to weight management programs at our [facility]. Please let us know if we can assist with a referral. documented in this encounter [facility] 07-27-2022 History of Present illness Narrative NEW PATIENT (CONSULT) HISTORY AND PHYSICAL EXAM PRIMARY CARE PHYSICIAN: Conor Pantoja MD REASON FOR CONSULT: KAI REFERRING PHYSICIAN: Ju French APRN.* CHIEF COMPLAINT: KAI Consultation requested by Ju French APRN.* for an opinion regarding chief complaint of No chief complaint on file. and my final recommendations will be communicated back to the requesting physician by way of shared medical record or letter via [place] mail. HISTORY OF PRESENT ILLNESS: Jaime Vega is a 41 year old male, There were no vitals taken for this visit. with a PMH significant for mild KAI per PSG in 2020. However, note that the RDI was in the moderate range. During that study hypercapnia was noted during wakefulness and sleep. Mean O2 was 94% with min O2 of 79%. Appears pt was treated with AutoPAP (DME=[facility]) from available PAP data downloads of 2020. Appears PAP was set at 5-20 cmH2O with residual AHI of 3.2. Most recent PAP data download (30 days leading up to this appointment) shows pt using PAP 86.7% of nights with an avg use of 6 hours and 45 minutes. <90% PAP is 8.5 cmH2O. No significant leak. Avg AHI is 1.0. Patient reports sleep is great if using PAP device, but if not my wants to kill me because I am snoring and sounds like I am drowning. If takes off PAP she will make sure he puts it back on. Typically goes to bed about MN and wakes about 6AM. Feels tired upon waking, but more awake as day goes on. States by 9AM feels good. Able to get through day without a nap but if had time and working hard would not mind a quick nap. No difficulties staying awake driving. No waking up during the night. States feels like he breathing better when he wakes in the AM. No formal dx of KAI in family, but father had a loud snore and bruxism (paternal grandfather as well). States he goes to bed late as he cannot relax until everyone else in the house gets their stuff done. Patient is tired by 9PM. 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 Not taking sleeping meds of any kind including no OTC. Patient would prefer not to take meds for sleeping. On days off, will sleep in until about 2PM (not every day off, but sometimes just needs to catch up). Pt is concerned his machine may be recall. Sleep Questionnaire Data Depression Screening 05/12/2020 PHQ-2 Score 0 PHQ-9 Score 10 PED PHQ-9 05/12/2020 Little interest or pleasure in doing things Not at all Feeling down, depressed, or hopeless Not at all Trouble falling or staying asleep, or sleeping too much Several days Feeling tired or having little energy More than half the days Poor appetite or overeating More than half the days Feeling bad about yourself - or that you are a failure or have let yourself or your family down Several days Trouble concentrating on things, such as reading the newspaper or watching television More than half the days Moving or speaking so slowly that other people could have noticed. Or the opposite - being so fidgety or restless that you have been moving around a lot more than usual More than half the days Thoughts that you would be better off , or of hurting yourself in some way Not at all If you checked off any problems, how difficult have these problems made it for you to do your work, take care of things at home, or get along with other people? Somewhat difficult PHQ-9 Score 10 (Moderate Depression) REVIEW OF SYSTEMS GENERAL:No weight loss, malaise or fevers. HEENT:Negative for frequent or significant headaches, No changes in hearing or vision, no nose bleeds or other nasal problems NECK:Negative for lumps, goiter, pain and significant neck swelling RESPIRATORY: Negative for cough, wheezing or shortness of breath. CARDIOVASCULAR: Negative for chest pain, leg swelling or palpitations. GASTROINTESTINAL: Negative for abdominal discomfort, blood in stools or black stools or change in bowel habits GENITOURINARY: No history of dysuria, frequency or incontinence MUSCULOSKELETAL: Negative for joint pain or swelling, back pain or muscle pain. NEUROLOGIC:Negative for focal numbness or weakness, headaches and dizziness or syncope, vision changes, speech/language changes, changes in gait or falls -- besides those complaints as above in HPI. SKIN:Negative for lesions, rash, and itching. LAB/IMAGING: Reviewed and include: WBC (k/uL) Date Value 09/03/2020 5.30 RBC (m/uL) Date Value 09/03/2020 4.83 Hemoglobin (g/dL) Date Value 09/03/2020 14.5 Hematocrit (%) Date Value 09/03/2020 43.5 MCV (fL) Date Value 09/03/2020 90.1 MCH (pg) Date Value 09/03/2020 30.0 MCHC (g/dL) Date Value 09/03/2020 33.3 RDW-CV (%) Date Value 09/03/2020 13.0 Platelet Count (k/uL) Date Value 09/03/2020 206 MPV (fL) Date Value 09/03/2020 11.4 Glucose (mg/dL) Date Value 09/03/2020 105 (H) BUN (mg/dL) Date Value 09/03/2020 15 Creatinine (mg/dL) Date Value 09/03/2020 1.11 Sodium (mmol/L) Date Value 09/03/2020 139 Potassium (mmol/L) Date Value 09/03/2020 4.3 Chloride (mmol/L) Date Value 09/03/2020 102 CO2 (mmol/L) Date Value 09/03/2020 27 Protein, Total (g/dL) Date Value 06/21/2018 7.7 Albumin (g/dL) Date Value 06/21/2018 4.6 Calcium, Total (mg/dL) Date Value 09/03/2020 8.6 Alkaline Phosphatase (U/L) Date Value 06/21/2018 104 Bilirubin, Total (mg/dL) Date Value 06/21/2018 0.5 AST (U/L) Date Value 06/21/2018 18 ALT (U/L) Date Value 06/21/2018 21 MEDICATIONS: nicotine polacrilex (NICORETTE) 2 mg gum^TAKE 1 EACH BY MOUTH EVERY 2 HOURS NEEDED.^Disp: 200 Each^Rfl: 0 omeprazole (PRILOSEC) 40 mg capsule^Take 1 capsule by mouth once daily.^Disp: 30 capsule^Rfl: 3 cloNIDine HCl (CATAPRES) 0.1 mg tablet^Take 1 tablet by mouth twice daily for 14 days.^Disp: 28 tablet^Rfl: 0 fluticasone-salmeterol HFA (ADVAIR HFA) 115-21 mcg/actuation inhaler^Inhale 2 Puffs as instructed twice daily. Rinse mouth after use.^Disp: 12 g^Rfl: 11 citalopram (CELEXA) 40 mg tablet^Take 1 tablet by mouth once daily.^Disp: 30 tablet^Rfl: 5 olopatadine (PATANOL) 0.1 % ophthalmic solution^Use 1 Drop in the right eye twice daily.^Disp: 5 mL^Rfl: 0 polyethylene glycol 3350 (MIRALAX, GLYCOLAX) 17 gram/dose powder^Use as directed for Miralax / Gatorade Bowel Prep Kit^Disp: 238 g^Rfl: 0 cyclobenzaprine (FLEXERIL) 10 mg tablet^Take 1 tablet by mouth three times daily as needed for muscle spasm.^Disp: 12 tablet^Rfl: 0 Gatorade Sports Drink^Use as directed for Miralax / Gatorade Bowel Prep Kit^Disp: ^Rfl: albuterol (PROVENTIL) 2.5 mg /3 mL (0.083 %) nebulizer solution^Use 3 mL via nebulizer every 4 hours as needed for wheezing/shortness of breath. Use over 5-15minutes.^Disp: 30 Vial^Rfl: 1 ipratropium-albuterol (DUONEB) 0.5 mg-3 mg(2.5 mg base)/3 mL nebu^Inhale 3 mL as instructed every 6 hours as needed (wheezing).^Disp: 30 mL^Rfl: 11 albuterol HFA (VENTOLIN HFA) 90 mcg/actuation inhaler^INHALE 2 PUFFS BY MOUTH DIRECTED EVERY 4 HOURS NEEDED FOR WHEEZING OR SHORTNESS OF BREATH^Disp: 18 g^Rfl: 3 CPAP^Initiate Auto PAP @ 5-20 cm of water with humidification. Mask (per patient preference) optional chin strap (if indicated) , filters, tubing, humidifier and lifetime supplies.^Disp: 1 Device^Rfl: 0 fluticasone (FLONASE) 50 mcg/actuation nasal spray^Use 2 Sprays in each nostril once daily.^Disp: 1 Bottle^Rfl: 11 cetirizine (ZYRTEC) 10 mg tablet^Take 1 tablet by mouth once daily as needed.^Disp: 30 tablet^Rfl: 11 HISTORIES PAST MEDICAL HISTORY Diagnosis Date Abdominal pain Anxiety Asthma Depression Sleep apnea FAMILY HISTORY Problem Relation Age of Onset Heart Father Colon Cancer Father other (colitis) Father other (autism) Son GI issues/ear problems/adhd SOCIAL HISTORY Social History Tobacco Use Smoking status: Never Smokeless tobacco: Current Types: Chew Vaping Use Vaping Use: Never used Substance Use Topics Alcohol use: No Drug use: No PHYSICAL EXAMINATION Blood pressure 136/85, pulse 81, temperature 36.6 C (97.9 F), resp. rate 16, weight 114.9 kg (253 lb 6.4 oz), SpO2 96 %. GENERAL EXAM: General appearance: NAD, pleasant. HEENT: NC/AT, nasal congestion absent, no oral lesions, membranes moist. Cloud IV. NECK: ROM nml. Lungs: CTA bilaterally. CV: RRR nl S1, S2 NEUROLOGICAL EXAM: General: Awake, alert, oriented x3 (person,place,time), speech fluent, no dysarthria; comprehension, naming, repetition intact. Short and intermission coordinator memory intact. Fund of knowledge grossly normal by MOCA. CN: PERRL, EOMI and without nystagmus, VFF to confrontation, facial sensation and strength are normal and symmetric, hearing is intact to finger rub bilaterally, palate and tongue movements are intact and symmetric. SCM and trapezius strength normal. Motor: Normal tone, bulk and strength (5/5) bilaterally (throughout extremities x4). Coordination: FNF, REAGAN, HTS intact. No tremors. Sensation: Light touch intact throughout. No evidence of neglect. Gait: Stable with normal stride and arm swing. Assessment and Plan: ASSESSMENT/PLAN: 1. KAI on CPAP - ICD9: 327.23, V46.8, ICD10: G47.33, Z99.89 (primary diagnosis) Patient with no specific PAP complaints. Subjectively and objectively compliant and doing well with device (confirmed by PAP data download). Did advised patient to contact DME re questions as to whether his device was recalled (appears received post recall), as well as schedule in which he can receive PAP supplies. Encouraged PAP compliance. Confirmed and advised patient to clean and replace equipment regularly (washes with soap and water 3 times per week). Advised pt not to drive or operate heavy machinery if sleepy. Discussed with patient: the physiology of OSAS, medical conditions associated with OSAS (DM, HTN, CAD, Depression, Stroke, Headache...) and treatment options (UPPP, Dental appliances, CPAP...). Encouraged weight loss, and continued compliance with other medications. 2. Insomnia, unspecified type - ICD9: 780.52, ICD10: G47.00 Likely multifactorial including environmental and behaviorally induced insomnia as well as prior history of shift work disorder. Patient emphasizes not wanting sleep aids (I.e. ambien). However, willing to trial melatonin 3mg to see if it might advance circadian pattern. Will provide 3mg at 7PM with goal bedtime of 10PM. SE and ADRs d/w pt as well as physiology and treatment of circadian disorders. Consider CBTi in future if no improvement. Discussed with patient the importance of good sleep hygiene. Conor Eng MD I spent a total of 45+ minutes on the date of the service which included preparing to see the patient, [id number] patient care, completing clinical documentation, obtaining and/or reviewing separately obtained history, performing a medically appropriate examination, counseling and educating the patient/family/caregiver, ordering medications, tests, or procedures, independently interpreting results (not separately reported), and communicating results to the patient/family/caregiver (results = PAP data download). documented in this encounter [facility] 06-26-2022 Instructions Carmen Sarkar PA-C - 06/26/2022 1:08 PM EST The following instructions are important for you related to your office visit today with the [facility] General Surgeons. INSTRUCTIONS FOLLOWING A POLYP FOUND AT COLONOSCOPY You were found to have an adenomatous colon polyp. I recommend you undergo repeat endoscopy in 1 year for surveillance. Will plan for a 2-day bowel prep as well as deeper anesthesia at that time. If you note bleeding, change in bowel habits, or other suspicious colon related symptoms before that time, those symptoms should be evaluated as necessary. If you have any difficulties or concerns, you should contact our office immediately. If you note any additional difficulties, questions, or concerns, you should contact our office immediately @ [phone] and ask to be transferred to the General Surgery department. documented in this encounter [facility] 06-26-2022 History of Present illness Narrative FOLLOW UP VISIT - ENDOSCOPY NAME: Jaime Lomax [facility] NO.: [id number] DATE OF SERVICE: 06/26/2022 : 1980 REFERRING PHYSICIAN: Conor Pantoja MD Jaime is a patient I am following with Dr. Dunn for history of colon polys and need for surveillance colonoscopy. Dr. Dunn performed lower endoscopy on 06/15/22. Per operative report: Patient has a contact number available for emergencies. The signs and symptoms of potential delayed complications were discussed with the patient. Return to normal activities tomorrow. Written discharge instructions were provided to the patient. - Resume previous diet. - Continue present medications. - Await pathology results. - Repeat colonoscopy in 1 year for surveillance. Secondary to poor prep, sound be done under MAC with adult scope and a 2 day bowel prep. - Return to physician clinical education assistant in 1 week. Pathology demonstrated: FINAL DIAGNOSIS A. Colon, descending, polypectomy - Tubular adenoma The patient notes no complaints since the procedure. VITALS: Blood pressure 134/88, pulse 87, temperature 36.7 C (98 F), SpO2 96 %. General: patient is alert, cooperative, pleasant and in no acute distress On examination, the abdomen is benign. Assessment IMPRESSION: s/p colonoscopy. Poor prep, technically difficult procedure, adenomatous polyp PLAN: The operative findings and pathology report were reviewed with the patient, and the patient has had the opportunity to ask questions and have questions answered. If the patient notes any problems or changes in bowel function, the patient should contact me immediately. Otherwise I recommend follow up endoscopy in 1 year, with 2-day bowel prep and MAC at that time. HM updated and recall letter generated. Patient verbalized understanding of all above and agreed with the plan Diagnoses: (D36.9) Tubular adenoma (primary encounter diagnosis) I spent a total of 25 minutes on the date of the service which included preparing to see the patient, [id number] patient care, completing clinical documentation, obtaining and/or reviewing separately obtained history, counseling and educating the patient/family/caregiver, independently interpreting results (not separately reported), and communicating results to the patient/family/caregiver. Carmen Sarkar PA-C documented in this encounter [facility] 06-15-2022 Miscellaneous Notes Script sent. Asha Rocha APRN.TIFFANY Please see note from pharmacy. Please send for 200 insurance only pays for 200 or 100 documented in this encounter [facility] 06-15-2022 Nurse Note Back to bed. States passed some air rectally and feeling better. Abd appears to be softer. states his abdomen looks and feels like normal for him. Pt still sleepy. Sitting at bedside eating snack and drinking juice. Ninfa Castano, GABE Pt feeling very crampy. Taken to restroom to see if he can pass some air rectally. Ninfa Castano RN at bedside. Pt still extremely sleepy. Given snack and drink. Ninfa Castano RN Pt's pulse ox dropping into high 80's while sleeping. Pt has hx of KAI. Ninfa Castano RN Pt received in PACU. Pt extremely drowsy, but arouses slightly. Appears comfortable. Abd slightly firm and appears slightly distended. Hard to assess abdomen due to habitus. Ninfa Castano RN documented in this encounter [facility] 06-15-2022 History and physical note Images from the original note were not included. HISTORY AND PHYSICAL Jaime Vega 1980 REFERRING PHYSICIAN: Conor Pantoja MD CHIEF COMPLAINT: Consult (colon screening) HPI: The patient is a 40 year old male referred for endoscopy. Jaime notes no history of colon complaints. The patient notes no history of upper GI complaints. Jaime has undergone prior endoscopy. 2015 Dr. Contreras did a colonoscopy and removed a rectal polyp. He recommended a 5-year follow-up. The patient is being seen by me today at the request of Dr. Conor Pantoja MD for my opinion and advice regarding History of colonic polyps. PAST MEDICAL HISTORY PAST MEDICAL HISTORY Diagnosis Date Abdominal pain Anxiety Asthma Depression PAST SURGICAL HISTORY PAST SURGICAL HISTORY Procedure Laterality Date COLONOSCOPY FLX DX W/COLLJ SPEC WHEN PFRMD 08/21/15 Colonoscopy with mac ESOPHAGOGASTRODUODENOSCOPY TRANSORAL DIAGNOSTIC 08/21/15 EGD with mac PAST SURGICAL HISTORY OF fatty cyst removed from stomach PAST SURGICAL HISTORY OF wisdom teeth CURRENT MEDICATIONS Current Outpatient Medications Medication Sig albuterol (PROVENTIL) 2.5 mg /3 mL (0.083 %) nebulizer solution Use 3 mL via nebulizer every 4 hours as needed for wheezing/shortness of breath. Use over 5-15minutes. omeprazole (PRILOSEC) 40 mg capsule Take 1 capsule by mouth once daily. ipratropium-albuterol (DUONEB) 0.5 mg-3 mg(2.5 mg base)/3 mL nebu Inhale 3 mL as instructed every 6 hours as needed (wheezing). albuterol HFA (VENTOLIN HFA) 90 mcg/actuation inhaler INHALE 2 PUFFS BY MOUTH DIRECTED EVERY 4 HOURS NEEDED FOR WHEEZING OR SHORTNESS OF BREATH cloNIDine HCl (CATAPRES) 0.1 mg tablet Take 1 tablet by mouth twice daily. citalopram (CELEXA) 20 mg tablet Take 1 tablet by mouth once daily. CPAP Initiate Auto PAP @ 5-20 cm of water with humidification. Mask (per patient preference) optional chin strap (if indicated) , filters, tubing, humidifier and lifetime supplies. fluticasone-salmeterol (ADVAIR DISKUS) 250-50 mcg/dose One inhalation twice a day. Rinse mouth out after use. fluticasone (FLONASE) 50 mcg/actuation nasal spray Use 2 Sprays in each nostril once daily. cetirizine (ZYRTEC) 10 mg tablet Take 1 tablet by mouth once daily as needed. BREO ELLIPTA 200-25 mcg/dose inhaler INHALE 1 INHALATION INSTRUCTED ONCE DAILY. RINSE MOUTH OUT AFTER USE. (Patient not taking: Reported on 08/05/2021) No current facility-administered medications for this visit. ALLERGIES: Acetaminophen-Codeine, Seasonal Allergies, and Singulair [Montelukast Sodium] PERSONAL HISTORY: SOCIAL HISTORY Social History Tobacco Use Smoking status: Never Smoker Smokeless tobacco: Current User Types: Chew Vaping Use Vaping Use: Never used Substance Use Topics Alcohol use: No Drug use: No FAMILY HISTORY: FAMILY HISTORY FAMILY HISTORY Problem Relation Age of Onset Heart Father Colon Cancer Father other (colitis) Father other (autism) Son GI issues/ear problems/adhd REVIEW OF SYMPTOMS: The review of systems data was entered by the nurse and reviewed by nj Nursing Notes: Rachael Calles RN 08/05/2021 3:12 PM Signed REVIEW OF SYSTEMS: General: The patient NOTES fatigue, denies weight loss, NOTES weight gain, denies feeling hot, and denies feelings of cold. Eyes: The patient denies glaucoma, denies eye injury/surgery, wears glasses or contacts. Ear/Nose/Throat: The patient NOTES allergies, denies hayfever, denies ear infections, and denies bloody noses. Cardiovascular: The patient denies chest pain, denies heart disease, denies high blood pressure,denies cardiac stent, denies prior heart attack, denies irregular heart beat, denies high cholesterol, denies poor circulation, denies heart failure, other cardiac issues, denies claudication, denies cold feet, denies peripheral arterial stent. Respiratory: The patient denies tuberculosis, denies pneumonia, denies frequent cough, denies pulmonary embolism, NOTES shortness of breath, and denies coughing up blood. Gastrointestinal: The patient denies difficulty swallowing, denies acid reflux, denies ulcers, denies vomiting, denies jaundice/hepatitis, denies gallbladder problems, denies black or tarry stools, denies hemorrhoids, denies bleeding from rectum, denies diverticulitis, denies constipation, denies diarrhea, denies loss of stool control, and denies hernias. Kidney/Bladder: The patient denies kidney stones, denies urine infections, and denies bloody urine. Skin: The patient denies a history of skin cancer, denies bleeding/changing moles, and denies a history of skin rash. Neurologic: The patient denies a history of epilepsy/convulsions, denies headaches, denies head/spinal injuries, and denies stroke/TIA. Psychiatric: The patient NOTES psychiatric medications, denies depression, and denies voices, denies substance abuse. Endocrine: The patient denies thyroid disorders, denies diabetes, and denies hormonal problems. Hematologic: The patient denies a history of bruising, denies bleeding, and denies anemia, denies blood clots. Infections: The patient denies a history of measles and mumps, denies rheumatic fever, and denies sexually transmitted diseases. Musculoskeletal: The patient denies back pain/injury, NOTES back problems, denies sciatica, denies knee/foot trouble, denies arthritis, or denies gout. When was patient's last Mammogram screening? Last Colonoscopy: 2014 Rachael Stitzlein, RN PHYSICAL EXAMINATION: General: The patient is 40 year old male, well nourished, well hydrated in no acute distress. The patient is oriented to time, place, and person. VITALS: Blood pressure 130/82, pulse 89, temperature 36.9 C (98.5 F), height 175.3 cm (5' 9), weight 115.9 kg (255 lb 9.6 oz), SpO2 94 %. Body mass index is 37.75 kg/m . HEENT: Normal cephalic, ataumatic, pupils are equally round, sclera are anicteric, mucous membranes are moist, oropharynx is clear. Neck has no masses, asymmetry or lymphadenopathy. Thyroid is unremarkable. Respiratory: Clear to auscultation and percussion. Normal respiratory excursion and pattern. Cardiac: Examination is regular rate and rhythm. Abdominal exam: Soft, nontender, with no palpable masses. No hepatosplenomegaly. No palpable hernias. Rectal exam: exam deferred Extremities: no clubbing, cyanosis or edema. No adenopathy. Other: LABORATORY VALUES: As Noted RADIOLOGIC STUDIES: As Noted Assessment IMPRESSION: History of colonic polyps PLAN: I plan to perform lower endoscopy. We discussed the risks and benefits of the planned endoscopy. I have informed the patient that complications can occur including failure to complete the endoscopy and perforation. The patient had the opportunity to ask questions concerning the planned endoscopy. My staff has also explained the procedure to the patient in understandable terms and has given the patient printed material concerning the procedure. The patient freely consents to surgery. I plan to use golytely bowel preparation for endoscopy Diagnoses: (Z86.010) History of colonic polyps My findings have been communicated to Dr. Conor Pantoja MD via shared medical record. This note will be forwarded to Dr. Conor Pantoja MD. Return to Clinic: The patient is instructed to follow-up with me 1 week post operatively. COVID (Procedure Consent) Procedure Criteria Procedure Criteria: Yes Elective The surgeon/proceduralist and patient have discussed in detail the risk of exposure to and/or potential harm posed by the COVID-19 virus with having a surgery/procedure at this time versus the risk of delaying the surgery/procedure. It is not possible to know either the risk of delaying the surgery or procedure or chance of getting an infection with perfect accuracy, but a joint decision was made between the patient and the surgeon/proceduralist to proceed at this time with the scheduled surgery/procedure as indicated on the consent form. Sukhjinder Dunn III, MD UPDATED HISTORY AND PHYSICAL EXAMINATION SERVICE DATE: 06/15/2022 SERVICE TIME: 9:32 AM PHYSICAL EXAM MUST BE COMPLETED ON ADMISSION The History and Physical (completed in the past 30 days) has been reviewed and the patient has been examined. The contents accurately reflect the patient's condition with the following additions or revisions since the H&P was completed. Examination indicates no changes. This H&P can be found in the attached. SIGNATURE: Sukhjinder Dunn III, MD PATIENT NAME: Jaime Vega DATE: June 15, 2022 TIME: 9:32 AM documented in this encounter [facility] 06-12-2022 Instructions Asha Rocha APRN.GRAIN DRIER - 06/12/2022 3:01 PM EST Keep the upcoming appt with psychiatry. Continue the same medication for now. Try the nicotine gum. documented in this encounter [facility] 06-12-2022 History of Present illness Narrative This is a 41 year old male who presents today with: Patient presents with: Recheck: 4 week follow up- Wellbutrin HISTORY OF PRESENT ILLNESS: Jaime Vega is a 41 year old male. Patient presents with: Recheck: 4 week follow up- Wellbutrin Refers that he only took the wellbutrin X 3 days, and then he stopped it because it was making him angry. Reports that he restarted the citalopram. Symptoms improved after that. Appt w/ counseling center on 06/18/22. Chews tobacco. Continues to be interested in cessation. PAST MEDICAL HISTORY: PAST MEDICAL HISTORY Diagnosis Date Abdominal pain Anxiety Asthma Depression PAST SURGICAL HISTORY Procedure Laterality Date COLONOSCOPY FLX DX W/COLLJ SPEC WHEN PFRMD 08/21/15 Colonoscopy with mac ESOPHAGOGASTRODUODENOSCOPY TRANSORAL DIAGNOSTIC 3/30/16 EGD with mac PAST SURGICAL HISTORY OF fatty cyst removed from stomach PAST SURGICAL HISTORY OF wisdom teeth ALLERGIES Acetaminophen-Codeine, Seasonal Allergies, and Singulair [Montelukast Sodium] MEDICATIONS Current Outpatient Medications Medication Sig cloNIDine HCl (CATAPRES) 0.1 mg tablet Take 1 tablet by mouth twice daily for 14 days. omeprazole (PRILOSEC) 40 mg capsule Take 1 capsule by mouth once daily. buPROPion XL (WELLBUTRIN XL) 150 mg 24 hr tablet Take 1 tablet by mouth once daily. fluticasone-salmeterol HFA (ADVAIR HFA) 115-21 mcg/actuation inhaler Inhale 2 Puffs as instructed twice daily. Rinse mouth after use. citalopram (CELEXA) 40 mg tablet Take 1 tablet by mouth once daily. olopatadine (PATANOL) 0.1 % ophthalmic solution Use 1 Drop in the right eye twice daily. polyethylene glycol 3350 (MIRALAX, GLYCOLAX) 17 gram/dose powder Use as directed for Miralax / Gatorade Bowel Prep Kit Bisacodyl (DULCOLAX) 5 mg tab Use as directed for Miralax / Gatorade Bowel Prep Kit cyclobenzaprine (FLEXERIL) 10 mg tablet Take 1 tablet by mouth three times daily as needed for muscle spasm. Gatorade Sports Drink Use as directed for Miralax / Gatorade Bowel Prep Kit albuterol (PROVENTIL) 2.5 mg /3 mL (0.083 %) nebulizer solution Use 3 mL via nebulizer every 4 hours as needed for wheezing/shortness of breath. Use over 5-15minutes. ipratropium-albuterol (DUONEB) 0.5 mg-3 mg(2.5 mg base)/3 mL nebu Inhale 3 mL as instructed every 6 hours as needed (wheezing). albuterol HFA (VENTOLIN HFA) 90 mcg/actuation inhaler INHALE 2 PUFFS BY MOUTH DIRECTED EVERY 4 HOURS NEEDED FOR WHEEZING OR SHORTNESS OF BREATH CPAP Initiate Auto PAP @ 5-20 cm of water with humidification. Mask (per patient preference) optional chin strap (if indicated) , filters, tubing, humidifier and lifetime supplies. fluticasone (FLONASE) 50 mcg/actuation nasal spray Use 2 Sprays in each nostril once daily. cetirizine (ZYRTEC) 10 mg tablet Take 1 tablet by mouth once daily as needed. Current Facility-Administered Medications Medication Dose Route Frequency perflutren lipid microspheres 1.3 mL in NaCl (PF) 0.9% 10 mL injection (DEFINITY) INTRAVENOUS DIRECTED PRN sodium chloride 0.9 % (flush) 10 mL (BD POSIFLUSH) 10 mL INTRAVENOUS DIRECTED PRN FAMILY HISTORY Problem Relation Age of Onset Heart Father Colon Cancer Father other (colitis) Father other (autism) Son GI issues/ear problems/adhd Social History Tobacco Use Smoking status: Never Smokeless tobacco: Current Types: Chew Vaping Use Vaping Use: Never used Substance Use Topics Alcohol use: No Drug use: No EXAM: BP 124/86 Pulse 64 Resp 18 SpO2 97% PHYSICAL EXAM: General Appearance: Well appearing, alert, in no acute distress, well-hydrated, well nourished.. Skin: Skin color, texture, turgor normal, no suspicious rashes or lesions. Head: Normocephalic, no masses, lesions, tenderness or abnormalities. Eyes: Anicteric sclera. Extraocular movements are intact. . Lungs: Lungs clear to auscultation. No wheezing, rhonchi, rales.. Heart: RRR without murmur, gallop, or rubs. No ectopy. Neurologic: Gait normal. ASSESSMENT/PLAN: 1. Anxiety and depression - ICD9: 300.00, 311, ICD10: F41.9, F32.A (primary diagnosis) Discussed with patient, that the Wellbutrin would have been in addition to the citalopram and not an replacement of the citalopram. He is back on the citalopram and the side effects of the angriness has improved. He does have a follow-up appointment with psychiatry scheduled. 2. 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 Prescription sent to the pharmacy for this. 3. GERD with esophagitis - ICD9: 530.11, ICD10: K21.00 Refill - OMEPRAZOLE 40 MG CAPSULE,DELAYED RELEASE Discussed treatment plan and patient voices understanding. Patient's questions answered appropriately. Medications and potential side effects were discussed and patient voices understanding. Return to the office as scheduled or as needed for worsening/no improvement. Asha Rocha APRN.GRAIN DRIER This note was partially generated using PersonSpot voice recognition system. Note was reviewed for accuracy. There may be minor misspellings or grammar miscues with [employer] voice recognition. documented in this encounter [facility] 05-12-2022 History of Present illness Narrative This note was created using NoteWriter. Subjective Jaime Vega is a 41 year old male. 41 year old male with PMH hyperlipidemia and asthma presents for illness. Acute onset 2 days ago +body aches + cough + congestion Denies CP. Denies SOB. Denies dyspnea Denies N/V/D Accompanied by son who is being seen for similar. Endorses + ill contacts. Denies tobacco usage. The history is provided by the patient. No pediatric speech language pathologist was used. Flu Like Symptoms This is a new problem. Episode onset: 2 days ago. The problem occurs constantly. The problem has been unchanged. Associated symptoms include chills, congestion, coughing, fatigue, a fever, headaches and myalgias. Pertinent negatives include no abdominal pain, anorexia, arthralgias, change in bowel habit, chest pain, diaphoresis, joint swelling, nausea, neck pain, numbness, rash, sore throat, swollen glands, urinary symptoms, vertigo, visual change, vomiting or weakness. Nothing aggravates the symptoms. He has tried nothing for the symptoms. The treatment provided no relief. PAST MEDICAL HISTORY Diagnosis Date Abdominal pain Anxiety Asthma Depression PAST SURGICAL HISTORY Procedure Laterality Date COLONOSCOPY FLX DX W/COLLJ SPEC WHEN PFRMD 08/21/15 Colonoscopy with mac ESOPHAGOGASTRODUODENOSCOPY TRANSORAL DIAGNOSTIC 08/21/15 EGD with mac PAST SURGICAL HISTORY OF fatty cyst removed from stomach PAST SURGICAL HISTORY OF wisdom teeth ALLERGIES Acetaminophen-Codeine, Seasonal Allergies, and Singulair [Montelukast Sodium] MEDICATIONS cloNIDine HCl (CATAPRES) 0.1 mg tablet^Take 1 tablet by mouth twice daily for 14 days.^Disp: 28 tablet^Rfl: 0 omeprazole (PRILOSEC) 40 mg capsule^Take 1 capsule by mouth once daily.^Disp: 30 capsule^Rfl: 3 fluticasone-salmeterol HFA (ADVAIR HFA) 115-21 mcg/actuation inhaler^Inhale 2 Puffs as instructed twice daily. Rinse mouth after use.^Disp: 12 g^Rfl: 11 citalopram (CELEXA) 40 mg tablet^Take 1 tablet by mouth once daily.^Disp: 30 tablet^Rfl: 5 olopatadine (PATANOL) 0.1 % ophthalmic solution^Use 1 Drop in the right eye twice daily.^Disp: 5 mL^Rfl: 0 albuterol (PROVENTIL) 2.5 mg /3 mL (0.083 %) nebulizer solution^Use 3 mL via nebulizer every 4 hours as needed for wheezing/shortness of breath. Use over 5-15minutes.^Disp: 30 Vial^Rfl: 1 ipratropium-albuterol (DUONEB) 0.5 mg-3 mg(2.5 mg base)/3 mL nebu^Inhale 3 mL as instructed every 6 hours as needed (wheezing).^Disp: 30 mL^Rfl: 11 albuterol HFA (VENTOLIN HFA) 90 mcg/actuation inhaler^INHALE 2 PUFFS BY MOUTH DIRECTED EVERY 4 HOURS NEEDED FOR WHEEZING OR SHORTNESS OF BREATH^Disp: 18 g^Rfl: 3 CPAP^Initiate Auto PAP @ 5-20 cm of water with humidification. Mask (per patient preference) optional chin strap (if indicated) , filters, tubing, humidifier and lifetime supplies.^Disp: 1 Device^Rfl: 0 fluticasone (FLONASE) 50 mcg/actuation nasal spray^Use 2 Sprays in each nostril once daily.^Disp: 1 Bottle^Rfl: 11 cetirizine (ZYRTEC) 10 mg tablet^Take 1 tablet by mouth once daily as needed.^Disp: 30 tablet^Rfl: 11 buPROPion XL (WELLBUTRIN XL) 150 mg 24 hr tablet^Take 1 tablet by mouth once daily.^Disp: 30 tablet^Rfl: 5 (Patient not taking: Reported on 05/12/2022) polyethylene glycol 3350 (MIRALAX, GLYCOLAX) 17 gram/dose powder^Use as directed for Miralax / Gatorade Bowel Prep Kit^Disp: 238 g^Rfl: 0 Bisacodyl (DULCOLAX) 5 mg tab^Use as directed for Miralax / Gatorade Bowel Prep Kit^Disp: 4 tablet^Rfl: 0 cyclobenzaprine (FLEXERIL) 10 mg tablet^Take 1 tablet by mouth three times daily as needed for muscle spasm.^Disp: 12 tablet^Rfl: 0 (Patient not taking: Reported on 05/12/2022) Gatorade Sports Drink^Use as directed for Miralax / Gatorade Bowel Prep Kit^Disp: ^Rfl: FAMILY HISTORY Problem Relation Age of Onset Heart Father Colon Cancer Father other (colitis) Father other (autism) Son GI issues/ear problems/adhd Social History Tobacco Use Smoking status: Never Smokeless tobacco: Current Types: Chew Vaping Use Vaping Use: Never used Substance Use Topics Alcohol use: No Drug use: No Review of Systems Constitutional: Positive for chills, fatigue and fever. Negative for diaphoresis. HENT: Positive for congestion. Negative for sore throat. Eyes: Negative for pain, discharge, redness and itching. Respiratory: Positive for cough. Negative for apnea, choking and chest tightness. Cardiovascular: Negative for chest pain. Gastrointestinal: Negative for abdominal pain, anorexia, change in bowel habit, nausea and vomiting. Musculoskeletal: Positive for myalgias. Negative for arthralgias, joint swelling and neck pain. Skin: Negative for color change, pallor and rash. Allergic/Immunologic: Negative for environmental allergies, food allergies and immunocompromised state. Neurological: Positive for headaches. Negative for dizziness, vertigo, facial asymmetry, weakness and numbness. Hematological: Negative for adenopathy. Does not bruise/bleed easily. Psychiatric/Behavioral: Negative for agitation and behavioral problems. Objective BP 136/82 Pulse 80 Temp 36.3 C (97.3 F) Resp 16 Wt 117.9 kg (260 lb) SpO2 97% BMI 38.96 kg/m Physical Exam Vitals and nursing note reviewed. Constitutional: General: He is not in acute distress. Appearance: Normal appearance. He is obese. He is not ill-appearing, toxic-appearing or diaphoretic. HENT: Head: Normocephalic and atraumatic. Right Ear: External ear normal. Left Ear: External ear normal. Nose: Nose normal. No congestion or rhinorrhea. Mouth/Throat: Mouth: Mucous membranes are moist. Pharynx: Oropharynx is clear. No oropharyngeal exudate or posterior oropharyngeal erythema. Eyes: General: Right eye: No discharge. Left eye: No discharge. Extraocular Movements: Extraocular movements intact. Conjunctiva/sclera: Conjunctivae normal. Pupils: Pupils are equal, round, and reactive to light. Cardiovascular: Rate and Rhythm: Normal rate and regular rhythm. Pulses: Normal pulses. Heart sounds: Normal heart sounds. No murmur heard. No friction rub. No gallop. Pulmonary: Effort: Pulmonary effort is normal. No respiratory distress. Breath sounds: Normal breath sounds. No stridor. No wheezing, rhonchi or rales. Chest: Chest wall: No tenderness. Abdominal: General: Abdomen is flat. There is no distension. Palpations: Abdomen is soft. There is no mass. Tenderness: There is no abdominal tenderness. There is no guarding or rebound. Hernia: No hernia is present. Musculoskeletal: General: No swelling, tenderness, deformity or signs of injury. Normal range of motion. Cervical back: Normal range of motion and neck supple. No rigidity or tenderness. Right lower leg: No edema. Left lower leg: No edema. Lymphadenopathy: Cervical: No cervical adenopathy. Skin: General: Skin is warm and dry. Capillary Refill: Capillary refill takes less than 2 seconds. Coloration: Skin is not jaundiced or pale. Findings: No bruising, lesion or rash. Neurological: General: No focal deficit present. Mental Status: He is alert and oriented to person, place, and time. Cranial Nerves: No cranial nerve deficit. Sensory: No sensory deficit. Motor: No weakness. Coordination: Coordination normal. Gait: Gait normal. Deep Tendon Reflexes: Reflexes normal. Psychiatric: Mood and Affect: Mood normal. Behavior: Behavior normal. Thought Content: Thought content normal. Assessment and Plan ASSESSMENT/PLAN: 1. URI, acute - ICD9: 465.9, ICD10: J06.9 X 2 days Son here with same Likely viral - Discussed viral etiology and rationale for treatment. - Symptomatic treatment with prn analgesia - Supportive care with fluids and rest - The patient may also use OTC cough and cold meds as needed, warm salt water gargles, throat lozenges and/or OTC throat spray as needed, and nasal saline gtts and suction prn. - Follow up in 3-5 days if symptoms persist or sooner if worsening of symptoms - COVID WITH FLUA+B, ROUTINE Ju Melo APRN.GRAIN DRIER documented in this encounter [facility] 04-30-2022 History of Present illness Narrative Patient presents with: Recheck: 3 month HPI: Patient presents today for office visit for follow up. Stress test was ok. Pft's showed mild improvement with bronchodilators. Breathing is overall ok. Using his Advair. Red flags for re-assessment reviewed with patient in detail. No heartburn. Moods are overall ok. Waiting to get into see psych. Getting colonoscopy in May. See previous ov: Was ordered a stress test per cardiology. Has not done it. Was ordered pfts and did not do it. His breathing was good for a little bit. Now has gotten worse again. Reinforced need to get testing done. No chest pain with exertion. No edema. Discussed that he needs the stress test before colonoscopy. Got xray of his knee. Is now better. Increased celexa but asked him to see psych. We had increased his celexa. He feels like it is helping . Stress is bothering him significantly. Did not see psych. Moods are more stable. Uses cpap nightly. Benefits from its use. Needs new supplies. Component Latest Ref Rng & Units 02/06/2022 Cholesterol, Total <200 mg/dL 220 (H) Triglyceride <150 mg/dL 134 HDL Cholesterol >39 mg/dL 32 (L) Non HDL Cholesterol <130 mg/dL 188 (H) Fasting Time hrs 12 VLDL Cholesterol <30 mg/dL 27 TC:HDL Ratio <5.10 6.88 (H) LDL Cholesterol <100 mg/dL 161 (H) LDL:HDL Ratio <2.54 5.03 (H) TSH 0.270 - 4.200 mIU/L 2.330 MEDICATIONS: Current Outpatient Medications Medication Sig fluticasone-salmeterol HFA (ADVAIR HFA) 115-21 mcg/actuation inhaler Inhale 2 Puffs as instructed twice daily. Rinse mouth after use. citalopram (CELEXA) 40 mg tablet Take 1 tablet by mouth once daily. cloNIDine HCl (CATAPRES) 0.1 mg tablet Take 1 tablet by mouth twice daily for 14 days. olopatadine (PATANOL) 0.1 % ophthalmic solution Use 1 Drop in the right eye twice daily. cyclobenzaprine (FLEXERIL) 10 mg tablet Take 1 tablet by mouth three times daily as needed for muscle spasm. albuterol (PROVENTIL) 2.5 mg /3 mL (0.083 %) nebulizer solution Use 3 mL via nebulizer every 4 hours as needed for wheezing/shortness of breath. Use over 5-15minutes. omeprazole (PRILOSEC) 40 mg capsule Take 1 capsule by mouth once daily. ipratropium-albuterol (DUONEB) 0.5 mg-3 mg(2.5 mg base)/3 mL nebu Inhale 3 mL as instructed every 6 hours as needed (wheezing). albuterol HFA (VENTOLIN HFA) 90 mcg/actuation inhaler INHALE 2 PUFFS BY MOUTH DIRECTED EVERY 4 HOURS NEEDED FOR WHEEZING OR SHORTNESS OF BREATH CPAP Initiate Auto PAP @ 5-20 cm of water with humidification. Mask (per patient preference) optional chin strap (if indicated) , filters, tubing, humidifier and lifetime supplies. fluticasone (FLONASE) 50 mcg/actuation nasal spray Use 2 Sprays in each nostril once daily. cetirizine (ZYRTEC) 10 mg tablet Take 1 tablet by mouth once daily as needed. polyethylene glycol 3350 (MIRALAX, GLYCOLAX) 17 gram/dose powder Use as directed for Miralax / Gatorade Bowel Prep Kit Bisacodyl (DULCOLAX) 5 mg tab Use as directed for Miralax / Gatorade Bowel Prep Kit Gatorade Sports Drink Use as directed for Miralax / Gatorade Bowel Prep Kit Current Facility-Administered Medications Medication Dose Route Frequency perflutren lipid microspheres 1.3 mL in NaCl (PF) 0.9% 10 mL injection (DEFINITY) INTRAVENOUS DIRECTED PRN sodium chloride 0.9 % (flush) 10 mL (BD POSIFLUSH) 10 mL INTRAVENOUS DIRECTED PRN ALLERGIES: ALLERGIES Allergen Reactions Acetaminophen-Codei* Rash Seasonal Allergies Unknown CATS, DOGS, COCKROACHES, MOLDS, TREES, GRASSES, WEEDS AND RAGWEED VERIFIED BY SKIN TESTING Darren [[place]* Other: See Comments irritable PAST MEDICAL HISTORY Diagnosis Date Abdominal pain Anxiety Asthma Depression PAST SURGICAL HISTORY Procedure Laterality Date COLONOSCOPY FLX DX W/COLLJ SPEC WHEN PFRMD 08/21/15 Colonoscopy with mac ESOPHAGOGASTRODUODENOSCOPY TRANSORAL DIAGNOSTIC 08/21/15 EGD with mac PAST SURGICAL HISTORY OF fatty cyst removed from stomach PAST SURGICAL HISTORY OF wisdom teeth FAMILY HISTORY Problem Relation Age of Onset Heart Father Colon Cancer Father other (colitis) Father other (autism) Son GI issues/ear problems/adhd Social History Tobacco Use Smoking status: Never Smokeless tobacco: Current Types: Chew Vaping Use Vaping Use: Never used Substance Use Topics Alcohol use: No Drug use: No Reviewed current medications, allergies, past medical history, surgical history, family history and social history today. REVIEW OF SYSTEMS All other reviewed and negative other than HPI. HEALTH MAINTENANCE: Reviewed health maintenance issues today and recommended the following in detail. COLORECTAL CANCER SCREENING due on 08/20/2020 VITALS: BP 132/80 Pulse 78 Resp 16 Wt 116.6 kg (257 lb) SpO2 98% BMI 38.51 kg/m Last 4 Encounter Wt Readings: Date: Wt: 04/30/2022 116.6 kg (257 lb) 02/06/2022 112.9 kg (249 lb) 02/03/2022 113.3 kg (249 lb 12.8 oz) 12/15/2021 113.9 kg (251 lb) PHYSICAL EXAMINATION: General appearance: Well appearing, alert, in no acute distress, well-hydrated, well nourished. Skin: Skin color, texture, turgor normal, no suspicious rashes or lesions Head: Normocephalic, no masses, lesions, tenderness or abnormalities Lungs: Lungs clear to auscultation. No wheezing, rhonchi, rales Heart: RRR without murmur, gallop, or rubs. No ectopy Abdomen: Normal abdominal exam, Abdomen soft, non-tender. Bowel sounds normal. No masses, organomegaly Extremities: No deformities, edema, skin discoloration, clubbing or cyanosis. Good capillary refill. Musculoskeletal: No joint swelling, deformity, or tenderness ASSESSMENT/PLAN: 1. Anxiety and depression - ICD9: 300.00, 311, ICD10: F41.9, F32.A (primary diagnosis) - add wellbutrin which will help with quitting smoking as well. Getting into see psych - CLONIDINE HCL 0.1 MG TABLET 2. GERD with esophagitis - ICD9: 530.11, ICD10: K21.00 - OMEPRAZOLE 40 MG CAPSULE,DELAYED RELEASE 3. 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 - ICD9: 292.9, ICD10: F17.229 - wellbutrin. Follow up in one month 4. Mixed hyperlipidemia - ICD9: 272.2, ICD10: E78.2 5. Mild persistent asthma without complication - ICD9: 493.90, ICD10: J45.30 - monitor the breathing. Call if worsens. Conor Pantoja RTO in one month and prn. documented in this encounter [facility] 02-27-2022 Miscellaneous Notes Spoke with pt. Notified of test results and Alecia French's recommendations. Pt voices understanding. He will call with any symptom changes. Anita Kyle RN Left message for and Ju to call [facility] for test results. [facility] phone number provided. I will also mail a letter to address on file due to unable to reach patient by phone. Ju Arango LPN Left message for to call [facility] for test results. [facility] phone number provided. uJ Arango LPN Left message for to call [facility] for test results. [facility] phone number provided. Ju Arango LPN ----- Message from Ju French APRN.GRAIN DRIER sent at 02/24/2022 11:39 AM EDT ----- Please call patient and notify him of results. Normal nuclear stress testing with normal LV function and no suggestion of ischemia. EKG Normal with exception due to borderline ST changes. Let us know if there is any change or increase in symptoms. Thank you! documented in this encounter [facility] 02-23-2022 History of Present illness Narrative RADIOLOGY SERVICE PROGRESS NOTE SERVICE DATE: 02/23/2022 SERVICE TIME: 9:19 AM PATIENT IDENTITY VERIFICATION COMPLETED USING TWO (2) STANDARD IDENTIFIERS: Name and Date of confirmed by patient verbally FALL SCREENING: Has the patient had 2 falls in the last year or 1 fall with injury or currently using an Ambulatory Assistive Device (Walker, Cane, Wheelchair, Crutches, etc.)? No PATIENT GENDER DATA: .male ALLERGIES: Reviewed and unchanged MEDICATIONS REVIEWED: No PATIENT RELEVANT IMPLANT DATA REVIEWED: Not Applicable CREATININE: Creatinine Date Value Ref Range Status 09/03/2020 1.11 0.73 - 1.22 mg/dL Final 08/29/2020 1.11 0.73 - 1.22 mg/dL Final 06/21/2018 1.07 0.73 - 1.22 mg/dL Final eGFR-All Other Races Date Value Ref Range Status 09/03/2020 >60 Final Comment: eGFR (Estimated GFR) Units of measure: mL/min/1.73 meters squared eGFR is derived from the reexpressed MDRD Study equation using the following parameters: serum creatinine, age, gender and race. The creatinine assay has been calibrated to be traceable to IDMS. An eGFR <60 mL/min/1.73m2 for >3 months is consistent with chronic kidney disease. Refer to KDOQI guidelines for clinical interpretation. In patients with unstable renal function, e.g. those with acute kidney injury, the eGFR may not accurately reflect actual GFR. eGFR- Date Value Ref Range Status 09/03/[address] >[address] PERFORMED: No IV SITE: Ambulatory: A peripheral IV was started in the Right antecubital site with a Angio cath: 22 gauge. POST EXAM PIV STATUS: Discontinued PROCEDURE TYPE: NM Stress: 15.7 mCi [id number] was administered IV for Rest Imaging at 07:15 by CHUY Tariq. 48.4 mCi [id number] was administered IV for Stress Imaging at 08:43 by CHUY TARIQ. ADMINISTRATION TIME: PATIENT DISCHARGED TO: Ambulatory patient, left NM department area. A Diagnostic radioactive procedure has taken place, with no further precautions necessary other than routine body substance precautions. More information regarding radiation safety can be found using this link: [email or web address] SIGNATURE: CHUY Tariq PATIENT NAME: Jaime Vega DATE: February 23, 2022 TIME: 9:19 AM PAGER/CONTACT #: documented in this encounter [facility] 02-06-2022 History of Present illness Narrative PULM FUNCTION SMARTBLOCK: Provider: Conor Pantoja MD Assisting Tech: ADELFO Romano Spirometry w/BD: 1 documented in this encounter [facility] 02-04-2022 Miscellaneous Notes Left detailed message for Nubia. I just reprinted the script. It is not for new machine. It is just for supplies. [place] [facility] [place] cor C-pap and Bi-pap prescription. Rx has C11 HH she is not sure what this is. She has not sen a pressure written this way. Wanting to clarify if pressure should be 11 cm H20. Pt currently is on an A-pap 5-20 CM H20. Please let Nubia know. Can call her back at Ext [phone]. Lucian Hogue LPN documented in this encounter [facility] 12-15-2021 Instructions Ju French APRN.GRAIN DRIER - 12/15/2021 4:19 PM EDT Cholesterol: Controlling with Lifestyle Changes What is cholesterol? Cholesterol is a type of fat. Your body makes some cholesterol and gets the rest from foods such as meats, dairy products, and eggs. Cholesterol has both good and bad effects on the body. Your body uses cholesterol to make hormones and to build and maintain cells. When your body has too much cholesterol, the excess fat sticks to the inside of the blood vessel meza. This is called plaque. Plaque makes the blood vessel meza thicker and the area inside the vessels smaller. This means less blood can flow through the blood vessels. Also, pieces of plaque may break off and block blood flow, which can cause a heart attack or stroke. The main types of cholesterol are LDL (low-density lipoprotein) and HDL (high-density lipoprotein). LDL leaves behind fatty deposits on artery meza and contributes to heart disease. LDL is called bad cholesterol. (You can think of L for lousy cholesterol.) HDL does the opposite: It cleans the artery meza, removes extra cholesterol from the body, and lowers the risk of heart disease. HDL is called good cholesterol. (Think of H for healthy cholesterol.) It is good to have lower levels of LDL and higher levels of HDL. Your healthcare provider can check your cholesterol with a blood test. Controlling the level of cholesterol in your blood lowers your risk for heart disease. It also lowers the chance of a heart attack or from heart disease if you already have heart disease. How can I control my cholesterol level? You can often control cholesterol levels by: Eating healthy Losing weight if you are overweight Exercising Not smoking If you have a high risk for heart disease, your healthcare provider may prescribe cholesterol-lowering medicine as well as changes in your diet and other aspects of your lifestyle. Your provider may also prescribe medicine if you have an inherited tendency to have high cholesterol. Eat healthy. A diet high in fiber and low in saturated fat and cholesterol can help prevent or lower cholesterol levels. You can find out how much and what kind of fat a food has by reading the food label. No more than 20 to 35% of your total calories should be from fat. Most of the fat you eat should be polyunsaturated or monounsaturated fat. These fats are healthier than other types of fat. They can be found in foods such as fish, avocados, vegetable oils (especially olive oil), nuts (like almonds, peanuts, and walnuts) and seeds (for example, pumpkin seeds). Limit the amount of saturated and trans fat that you eat. Saturated fat is found in whole milk, cheese, butter, ice cream, cream, lard, fatty cuts of meat, poultry with the skin on, and some tropical vegetable oils, such as coconut and palm kernel oil. Trans fat may be found in stick margarine, shortening, [place] fries, cookies, crackers, and bakery goods. If the food label has the words partially hydrogenated, the product probably has trans fat. Limit the cholesterol in your diet to less than 300 mg a day. If you have heart disease or a high risk of heart disease, limit cholesterol to less than 200 mg a day. Changes you can make in your diet include: Drink nonfat or 1% milk instead of whole milk, and eat fat-free or low-fat milk, cheese, spreads, and yogurt. Use egg whites or egg substitutes rather than whole eggs. Use salad dressings made from healthy oils, such as canola, olive, peanut, and flaxseed oil. Eat fish, chicken and turkey cooked without the skin, and meatless entrees. Eat red meat (beef, pork, prasad) and processed meats (like salami, bologna, hot dogs, sausage, and young) no more than 2 times a week. Choose lean cuts of meat and trim off all visible fat. Choose at least 90% lean ground beef. Keep portion sizes moderate, which is about 3 to 4 ounces per serving. Eat less sugar and less fried food and junk food, like [place] fries, chips, cookies, crackers, and doughnuts. Choose healthier desserts, such as fresh fruits, nonfat frozen yogurt, and Popsicles. Avoid fatty desserts such as ice cream, cream-filled cakes, and cheesecakes. Eat more fruit, vegetables; beans; and whole grains, such as oats, brown rice, quinoa and bran. The fiber in these foods helps lower cholesterol. Eat 1.5 ounces (42.5 grams) a day of unsalted nuts and seeds. Nuts and seeds are full of fiber, protein, and healthy fats. Nuts and seeds are also high in calories, so they should be eaten in small portions and used to replace other protein foods, like some meat or poultry, rather than being added to the diet. Examples of nuts and seeds that can be a part of a healthy diet are walnuts, almonds, hazelnuts, peanuts, pecans, and pistachio nuts, sunflower seeds, and pumpkin seeds. Check labels for plant sterols or stanols added to some foods, such as special margarines, milk, and orange juice. These ingredients can help lower LDL. The recommended amount is 2 grams a day. Limit alcohol to no more than 2 drinks a day for men and 1 drink a day for women. Ask your healthcare provider for a referral to a retail sales vitamin consultant to learn more about eating healthy. Lose excess weight. You can lose weight by eating fewer calories. Losing weight: Helps lower both total cholesterol and bad LDL cholesterol Increases your energy and helps you feel better (both physically and mentally) Lowers your risk for heart attack or stroke Talk to your healthcare provider about your weight. If you need to lose weight, plan for a gradual weight loss of 1 to 2 pounds a week. Exercise. Being physically active also helps control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 speech. The NU-6 Order by Difficulty Word List (10 words) was used for testing. LEFT EAR: Hearing Sensitivity: Within normal limits through 1500 Hz sloping to a mild sensorineural hearing loss. Conductive component noted at 500 Hz only. Word Recognition Score: Excellent (90-100%). WRS is consistent with hearing sensitivity. Words were presented at 55 dB HL which approximates intensity level for normal conversational speech. The NU-6 Order by Difficulty Word List (10 words) was used for testing. MANAGEMENT PLAN: * Continue medical follow-up with Carrillo Chatman MD. * Re-evaluation as medically indicated. * The patient was counseled about hearing conservation and use of noise protectors. Information about hearing protection devices was provided to the patient. if custom HPDs are desired, please call [phone] to schedule an [facility] appointment. Lainey Guan, [facility] Clinical and Hearing Implant Capacity Planning Analyst copied to: Carrillo Chatman MD HENDERSON Abbrev- iation Definition Degree of hearing sensitivity dB range WNL within normal limits WNL 0 - 20 SNHL sensorineural hearing loss Mild 20-40 CHL conductive hearing loss Moderate 40-55 MHL mixed hearing loss Moderately-Severe 55-70 WRS word recognition score Severe 70-90 ME middle ear Profound 90 + TM tympanic membrane documented in this encounter [facility] 09-01-2021 History of Present illness Narrative Images from the original note were not included. [facility] SE[facility] CARDIOLOGY Cardiology ([facility]) [address] [facility] [id number] OUTPATIENT VISIT DATE 09/01/2021 PRIMARY CARE PHYSICIAN: Conor Pantoja [address] [place] [address] REFERRING PHYSICIAN: Kitty Trujillo [address] [facility] [address] CHIEF COMPLAINT: Patient referred by Dr. Pantoja for cardiac evaluation due to possible COVID-19 induced cardiovascular illness. Results of my evaluation and recommendations will be communicated via shared medical record. HISTORY OF PRESENT ILLNESS: Mr. Vega is a 40 year old gentleman with a history of obesity, obstructive sleep apnea currently maintained on CPAP, longstanding nicotine dependence (chewing tobacco), and significant dyslipidemia noted on most recent fasting blood work in 2014 who is here today for evaluation of multiple symptoms he believes are related to prior COVID-19 pneumonia. He was diagnosed with COVID-19 infection and August 2020. Since that time, he has had persistent shortness of breath and dyspnea on exertion out of proportion to his prior functional capacity. He tells me is unable to complete tasks that he had been having no difficulty with the year prior. He has no resting symptoms of shortness of breath or chest pain. He did not have chest pain or pressure throughout the onset of his COVID-19 infection. He has had progressive symptoms over the past 1 year. He is here today for further evaluation. He has not had symptoms concerning for CHF including PND, orthopnea, or lower extremity edema. He does have a feeling that his heart is racing or going faster than it should for his level of activity. He denies any symptoms of lightheadedness, dizziness, or syncope. PAST MEDICAL HISTORY Diagnosis Date Abdominal pain Anxiety Asthma Depression PAST SURGICAL HISTORY Procedure Laterality Date COLONOSCOPY FLX DX W/COLLJ SPEC WHEN PFRMD 08/21/15 Colonoscopy with mac ESOPHAGOGASTRODUODENOSCOPY TRANSORAL DIAGNOSTIC 08/21/15 EGD with mac PAST SURGICAL HISTORY OF fatty cyst removed from stomach PAST SURGICAL HISTORY OF wisdom teeth SOCIAL HISTORY Social History Tobacco Use Smoking status: Never Smoker Smokeless tobacco: Current User Types: Chew Vaping Use Vaping Use: Never used Substance Use Topics Alcohol use: No Drug use: No FAMILY HISTORY Problem Relation Age of Onset Heart Father Colon Cancer Father other (colitis) Father other (autism) Son GI issues/ear problems/adhd ALLERGIES: ALLERGIES Allergen Reactions Acetaminophen-Codei* Rash Seasonal Allergies Unknown CATS, DOGS, COCKROACHES, MOLDS, TREES, GRASSES, WEEDS AND RAGWEED VERIFIED BY SKIN TESTING Darren [[place]* Other: See Comments irritable MEDICATIONS: cyclobenzaprine (FLEXERIL) 10 mg tablet Take 1 tablet by mouth three times daily as needed for muscle spasm. Gatorade Sports Drink Use as directed for Miralax / Gatorade Bowel Prep Kit albuterol (PROVENTIL) 2.5 mg /3 mL (0.083 %) nebulizer solution Use 3 mL via nebulizer every 4 hours as needed for wheezing/shortness of breath. Use over 5-15minutes. omeprazole (PRILOSEC) 40 mg capsule Take 1 capsule by mouth once daily. ipratropium-albuterol (DUONEB) 0.5 mg-3 mg(2.5 mg base)/3 mL nebu Inhale 3 mL as instructed every 6 hours as needed (wheezing). albuterol HFA (VENTOLIN HFA) 90 mcg/actuation inhaler INHALE 2 PUFFS BY MOUTH DIRECTED EVERY 4 HOURS NEEDED FOR WHEEZING OR SHORTNESS OF BREATH cloNIDine HCl (CATAPRES) 0.1 mg tablet Take 1 tablet by mouth twice daily. citalopram (CELEXA) 20 mg tablet Take 1 tablet by mouth once daily. CPAP Initiate Auto PAP @ 5-20 cm of water with humidification. Mask (per patient preference) optional chin strap (if indicated) , filters, tubing, humidifier and lifetime supplies. fluticasone (FLONASE) 50 mcg/actuation nasal spray Use 2 Sprays in each nostril once daily. cetirizine (ZYRTEC) 10 mg tablet Take 1 tablet by mouth once daily as needed. polyethylene glycol 3350 (MIRALAX, GLYCOLAX) 17 gram/dose powder Use as directed for Miralax / Gatorade Bowel Prep Kit Bisacodyl (DULCOLAX) 5 mg tab Use as directed for Miralax / Gatorade Bowel Prep Kit fluticasone-salmeterol (ADVAIR DISKUS) 250-50 mcg/dose One inhalation twice a day. Rinse mouth out after use. BREO ELLIPTA 200-25 mcg/dose inhaler INHALE 1 INHALATION INSTRUCTED ONCE DAILY. RINSE MOUTH OUT AFTER USE. REVIEW OF SYSTEMS: Review of Systems Constitutional: Positive for malaise/fatigue. Negative for chills, fever and weight loss. HENT: Negative for hearing loss and sore throat. Eyes: Negative for blurred vision and double vision. Respiratory: Positive for shortness of breath. Negative for cough, sputum production and wheezing. Cardiovascular: Positive for palpitations. Gastrointestinal: Negative. Genitourinary: Negative for dysuria, frequency, hematuria and urgency. Musculoskeletal: Negative. Skin: Negative. Neurological: Negative for dizziness, seizures, loss of consciousness, weakness and headaches. Endo/Heme/Allergies: Negative for environmental allergies. Does not bruise/bleed easily. Psychiatric/Behavioral: Negative for depression. PHYSICAL EXAMINATION: BP 120/80 Pulse 73 Resp 20 Ht 5' 9 (1.75m) Wt 259 lb (117.5kg) BMI 38.23 kg/(m^2). General: Pleasant gentleman sitting appears comfortable no apparent distress. He is alert and oriented x3 HEENT: Carotid upstrokes are brisk without bruits no JVD appreciated. Pulmonary: Lungs are clear no rales, wheezes, rhonchi Cardiovascular: Normal S1, S2 with regular rate and rhythm. PMI is in the midclavicular line. There are no murmurs, rubs, or gallops appreciated. Extremities: Warm, well-perfused, trace pedal edema. Distal pulses are preserved at 1-2+ dorsalis pedis and posterior tibial CARDIOVASCULAR MEDICINE TESTING: ECG in the office 09/01/2021: Normal sinus rhythm with diffuse early repole abnormality nonspecific ST-T wave changes in the inferior leads. IMPRESSION: Mr. Vega is a 40 year old gentleman with history of COVID-19 pneumonia in August 2020. Patient has not received COVID-19 vaccination. He presents to the office for evaluation of worsening shortness of breath, fatigue, dyspnea on exertion. Risk factors for coronary disease include possible family history, significant dyslipidemia, obesity, and longstanding nicotine use. PLAN AND RECOMMENDATIONS: 1. Shortness of breath - ICD9: 786.05, ICD10: R06.02 Patient scheduled for 2D echocardiogram. If there are wall motion abnormalities or evidence of cardiomyopathy he will need further evaluation with possible cardiac catheterization and or magnetic resonance imaging. - ECHO - PERFLUTREN LIPID MICROSPHERES 1.1 MG/ML INJECTION IN NS 10 ML - SODIUM CHLORIDE 0.9 % (FLUSH) INJECTION SYRINGE - C-REACTIVE ULTRA SEN - NT PRO BNP 2. 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 Obesity, Class II, BMI 35-39.9 - ICD9: 278.00, ICD10: E66.9 4. Mixed hyperlipidemia - ICD9: 272.2, ICD10: E78.2 Blood work from 2015 was reviewed. Patient has markedly abnormal glycerides and LDL cholesterol. He has repeat fasting blood work scheduled. 5. 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 - ICD9: 292.9, ICD10: F17.229 I discussed the risks of nicotine use in detail as it relates to his cardiac illness. Strongly encouraged discontinuation of nicotine based products in any form including chewing tobacco. Risa Campa MD documented in this encounter [facility] 09-01-2021 History of Past i llness Narrative Problem Noted Date Resolved Date Shortness of breath 09/01/2021 04/30/2022 Right upper quadrant abdominal pain 08/08/2015 09/21/2018 Nausea 08/08/2015 09/21/2018 Bloating symptom 08/08/2015 09/21/2018 documented as of this encounter (statuses as of 04/30/2022) [facility] History of Past illness Narrative* Problem Noted Date Resolved Date Shortness of breath 09/01/2021 04/30/2022 Right upper quadrant abdominal pain 08/08/2015 09/21/2018 Nausea 08/08/2015 09/21/2018 Bloating symptom 08/08/2015 09/21/2018 documented as of this encounter (statuses as of 05/12/2022) [facility] History of Past illness Narrative* Problem Noted Date Resolved Date Shortness of breath 09/01/2021 04/30/2022 Right upper quadrant abdominal pain 08/08/2015 09/21/2018 Nausea 08/08/2015 09/21/2018 Bloating symptom 08/08/2015 09/21/2018 documented as of this encounter (statuses as of 06/12/2022) [facility] History of Past illness Narrative* Problem Noted Date Resolved Date Shortness of breath 09/01/2021 04/30/2022 Right upper quadrant abdominal pain 08/08/2015 09/21/2018 Nausea 08/08/2015 09/21/2018 Bloating symptom 08/08/2015 09/21/2018 documented as of this encounter (statuses as of 06/15/2022) [address]-2022 History of Past illness Narrative* Problem Noted Date Resolved Date Shortness of breath 09/01/2021 04/30/2022 Right upper quadrant abdominal pain 08/08/2015 09/21/2018 Nausea 08/08/2015 09/21/2018 Bloating symptom 08/08/2015 09/21/2018 documented as of this encounter (statuses as of 07/01/2022) [address]-2022 History of Past illness Narrative* Problem Noted Date Resolved Date Shortness of breath 09/01/2021 04/30/2022 Right upper quadrant abdominal pain 08/08/2015 09/21/2018 Nausea 08/08/2015 09/21/2018 Bloating symptom 08/08/2015 09/21/2018 documented as of this encounter (statuses as of 07/27/2022) [address]-2022 History of Past illness Narrative* Problem Noted Date Resolved Date Shortness of breath 09/01/2021 04/30/2022 Right upper quadrant abdominal pain 08/08/2015 09/21/2018 Nausea 08/08/2015 09/21/2018 Bloating symptom 08/08/2015 09/21/2018 documented as of this encounter (statuses as of 11/07/2022) [address]-2022 History of Past illness Narrative* Problem Noted Date Diagnosed Date Resolved Date Shortness of breath 09/01/2021 04/30/20 22 Right upper quadrant abdominal pain 08/08/2015 09/21/2018 Nausea 08/08/2015 09/21/2018 Bloating symptom 08/08/2015 09/21/2018 documented as of this encounter (statuses as of 12/03/2022) [address]-2022 History of Past illness Narrative* Problem Noted Date Diagnosed Date Resolved Date Shortness of breath 09/01/2021 04/30/20 22 Right upper quadrant abdominal pain 08/08/2015 09/21/2018 Nausea 08/08/2015 09/21/2018 Bloating symptom 08/08/2015 09/21/2018 documented as of this encounter (statuses as of 12/14/2022) [address]-2022 History of Past illness Narrative* Problem Noted Date Diagnosed Date Resolved Date Shortness of breath 09/01/2021 04/30/20 22 Right upper quadrant abdominal pain 08/08/2015 09/21/2018 Nausea 08/08/2015 09/21/2018 Bloating symptom 08/08/2015 09/21/2018 documented as of this encounter (statuses as of 01/08/2023) [facility] History of Past illness Narrative* Problem Noted Date Diagnosed Date Resolved Date Shortness of breath 09/01/2021 04/30/20 22 Right upper quadrant abdominal pain 08/08/2015 09/21/2018 Nausea 08/08/2015 09/21/2018 Bloating symptom 08/08/2015 09/21/2018 documented as of this encounter (statuses as of 02/09/2023) [facility] History of Past illness Narrative* Problem Noted Date Diagnosed Date Resolved Date Shortness of breath 09/01/2021 04/30/20 22 Right upper quadrant abdominal pain 08/08/2015 09/21/2018 Nausea 08/08/2015 09/21/2018 Bloating symptom 08/08/2015 09/21/2018 documented as of this encounter (statuses as of 02/18/2023) [facility] History of Past illness Narrative* Problem Noted Date Diagnosed Date Resolved Date Shortness of breath 09/01/2021 04/30/20 22 Right upper quadrant abdominal pain 08/08/2015 09/21/2018 Nausea 08/08/2015 09/21/2018 Bloating symptom 08/08/2015 09/21/2018 documented as of this encounter (statuses as of 03/11/2023) [address]22 History of Past illness Narrative* Problem Noted Date Diagnosed Date Resolved Date Shortness of breath 09/01/2021 04/30/20 22 Right upper quadrant abdominal pain 08/08/2015 09/21/2018 Nausea 08/08/2015 09/21/2018 Bloating symptom 08/08/2015 09/21/2018 documented as of this encounter (statuses as of 03/23/2023) [facility] History of Past illness Narrative* Problem Noted Date Diagnosed Date Resolved Date Shortness of breath 09/01/2021 04/30/20 22 Right upper quadrant abdominal pain 08/08/2015 09/21/2018 Nausea 08/08/2015 09/21/2018 Bloating symptom 08/08/2015 09/21/2018 documented as of this encounter (statuses as of 03/28/2023) [address]-2022 History of Past illness Narrative* Problem Noted Date Diagnosed Date Resolved Date Shortness of breath 09/01/2021 04/30/20 22 Right upper quadrant abdominal pain 08/08/2015 09/21/2018 Nausea 08/08/2015 09/21/2018 Bloating symptom 08/08/2015 09/21/2018 documented as of this encounter (statuses as of 04/01/2023) [address]-2022 History of Past illness Narrative* Problem Noted Date Diagnosed Date Resolved Date Shortness of breath 09/01/2021 04/30/20 22 Right upper quadrant abdominal pain 08/08/2015 09/21/2018 Nausea 08/08/2015 09/21/2018 Bloating symptom 08/08/2015 09/21/2018 documented as of this encounter (statuses as of 04/14/2023) [address]-2022 History of Past illness Narrative* Problem Noted Date Diagnosed Date Resolved Date Shortness of breath 09/01/2021 04/30/20 22 Right upper quadrant abdominal pain 08/08/2015 09/21/2018 Nausea 08/08/2015 09/21/2018 Bloating symptom 08/08/2015 09/21/2018 documented as of this encounter (statuses as of 04/21/2023) [address]-2022 History of Past illness Narrative* Problem Noted Date Diagnosed Date Resolved Date Shortness of breath 09/01/2021 04/30/20 22 Right upper quadrant abdominal pain 08/08/2015 09/21/2018 Nausea 08/08/2015 09/21/2018 Bloating symptom 08/08/2015 09/21/2018 documented as of this encounter (statuses as of 07/14/2023) [address]-2022 History of Past illness Narrative* Problem Noted Date Diagnosed Date Resolved Date Shortness of breath 09/01/2021 04/30/20 22 Right upper quadrant abdominal pain 08/08/2015 09/21/2018 Nausea 08/08/2015 09/21/2018 Bloating symptom 08/08/2015 09/21/2018 documented as of this encounter (statuses as of 07/16/2023) [facility] History of Past illness Narrative* Problem Noted Date Diagnosed Date Resolved Date Shortness of breath 09/01/2021 04/30/20 Right upper quadrant abdominal pain 08/08/2015 09/21/2018 Nausea 08/08/2015 09/21/2018 Bloating symptom 08/08/2015 09/21/2018 documented as of this encounter (statuses as of 08/11/2023) [facility] History of Present illness Narrative* Miranda Metzger RT(R) - 06/13/2021 8:50 AM EST Radiology Service Progress Note PATIENT NAME: Jaime Vega DATE OF SERVICE: June 13 TIME: 9:00 AM PATIENT IDENTITY VERIFICATION COMPLETED USING TWO (2) IDENTIFIERS: Name and Date of confirmedby patient verbally. FALL SCREENING: Has the patient had 2 falls in the last year or 1 fall with injury or currently using an Ambulatory Assistive Device (Walker, Cane, Wheelchair, Crutches, etc.)? No PATIENT GENDER DATA: Male PATIENT RELEVANT IMPLANT DATA REVIEWED: Not Applicable RADIOLOGY DEPARTMENT: General X-ray: Exam(s) Completed: Chest X-Ray PERIPHERAL IV DATA: Not applicable SIGNED BY: RT Kilo(R) June 13, 2021 9:07 AM [facility] History of Present illness Narrative* Miranda Metzger RT(R) - 11/22/2020 10:30 AM EDT Radiology Service Progress Note PATIENT NAME: Jaime Vega DATE OF SERVICE: November 22, 2020 TIME: 10:53 AM PATIENT IDENTITY VERIFICATION COMPLETED USING TWO (2) IDENTIFIERS: Name and Date of confirmedby patient verbally. FALL SCREENING: Has the patient had 2 falls in the last year or 1 fall with injury or currently using an Ambulatory Assistive Device (Walker, Cane, Wheelchair, Crutches, etc.)? No PATIENT GENDER DATA: Male PATIENT RELEVANT IMPLANT DATA REVIEWED: Not Applicable RADIOLOGY DEPARTMENT: General X-ray: Exam(s) Completed: Chest X-Ray PERIPHERAL IV DATA: Not applicable SIGNED BY: RT Kilo(R) November 22, 2020 10:53 AM [facility] History of Present illness Narrative* Francois Benito RT(R) - 10/17/2020 7:30 PM EDT Radiology Service Progress Note PATIENT NAME: Jaime Vega DATE OF SERVICE: October 17, 2020 TIME: 7:39 PM PATIENT IDENTITY VERIFICATION COMPLETED USING TWO (2) IDENTIFIERS: Name and Date of confirmedby patient verbally. FALL SCREENING: Has the patient had 2 falls in the last year or 1 fall with injury or currently using an Ambulatory Assistive Device (Walker, Cane, Wheelchair, Crutches, etc.)? No PATIENT GENDER DATA: Male PATIENT RELEVANT IMPLANT DATA REVIEWED: Not Applicable RADIOLOGY DEPARTMENT: General X-ray: Exam(s) Completed: Lower Extremity X- Ray(s): Tibia Fibula, Left PERIPHERAL IV DATA: Not applicable SIGNED BY: RT Serene(R) October 17, 2020 7:39 PM [facility] History of Past illness Narrative* Problem Noted Date Resolved Date Right upper quadrant abdominal pain 08/08/2015 09/21/2018 Nausea 08/08/2015 09/21/2018 Bloating symptom 08/08/2015 09/21/2018 documented as of this encounter (statuses as of 08/26/2021) [facility] of [facility] illness Narrative* Problem Noted Date Resolved Date Right upper quadrant abdominal pain 08/08/2015 09/21/2018 Nausea 08/08/2015 09/21/2018 Bloating symptom 08/08/2015 09/21/2018 documented as of this encounter (statuses as of 09/01/2021) [place] [id number] History of Past illness Narrative* Problem Noted Date Resolved Date Right upper quadrant abdominal pain 08/08/2015 09/21/2018 Nausea 08/08/2015 09/21/2018 Bloating symptom 08/08/2015 09/21/2018 documented as of this encounter (statuses as of 09/02/2021) [place] [id number] History of Past illness Narrative* Problem Noted Date Resolved Date Right upper quadrant abdominal pain 08/08/2015 09/21/2018 Nausea 08/08/2015 09/21/2018 Bloating symptom 08/08/2015 09/21/2018 documented as of this encounter (statuses as of 09/16/2021) [address] History of Past illness Narrative* Problem Noted Date Resolved Date Right upper quadrant abdominal pain 08/08/2015 09/21/2018 Nausea 08/08/2015 09/21/2018 Bloating symptom 08/08/2015 09/21/2018 documented as of this encounter (statuses as of 10/24/2021) [address]2016 History of Past illness Narrative* Problem Noted Date Resolved Date Right upper quadrant abdominal pain 08/08/2015 09/21/2018 Nausea 08/08/2015 09/21/2018 Bloating symptom 08/08/2015 09/21/2018 documented as of this encounter (statuses as of 10/27/2021) [address]2016 History of Past illness Narrative* Problem Noted Date Resolved Date Right upper quadrant abdominal pain 08/08/2015 09/21/2018 Nausea 08/08/2015 09/21/2018 Bloating symptom 08/08/2015 09/21/2018 documented as of this encounter (statuses as of 11/06/2021) [address]2016 History of Past illness Narrative* Problem Noted Date Resolved Date Right upper quadrant abdominal pain 08/08/2015 09/21/2018 Nausea 08/08/2015 09/21/2018 Bloating symptom 08/08/2015 09/21/2018 documented as of this encounter (statuses as of 11/26/2021) [address] History of Past illness Narrative* Problem Noted Date Resolved Date Right upper quadrant abdominal pain 08/08/2015 09/21/2018 Nausea 08/08/2015 09/21/2018 Bloating symptom 08/08/2015 09/21/2018 documented as of this encounter (statuses as of 12/18/2021) [address]2016 History of Past illness Narrative* Problem Noted Date Resolved Date Right upper quadrant abdominal pain 08/08/2015 09/21/2018 Nausea 08/08/2015 09/21/2018 Bloating symptom 08/08/2015 09/21/2018 documented as of this encounter (statuses as of 02/04/2022) [address] History of Past illness Narrative* Problem Noted Date Resolved Date Right upper quadrant abdominal pain 08/08/2015 09/21/2018 Nausea 08/08/2015 09/21/2018 Bloating symptom 08/08/2015 09/21/2018 documented as of this encounter (statuses as of 02/06/2022) [address]2016 History of Past illness Narrative* Problem Noted Date Resolved Date Right upper quadrant abdominal pain 08/08/2015 09/21/2018 Nausea 08/08/2015 09/21/2018 Bloating symptom 08/08/2015 09/21/2018 documented as of this encounter (statuses as of 02/24/2022) [address]2016 History of Past illness Narrative* Problem Noted Date Resolved Date Right upper quadrant abdominal pain 08/08/2015 09/21/2018 Nausea 08/08/2015 09/21/2018 Bloating symptom 08/08/2015 09/21/2018 documented as of this encounter (statuses as of 02/24/2022) [address]2016 History of Past illness Narrative* Problem Noted Date Resolved Date Right upper quadrant abdominal pain 08/08/2015 09/21/2018 Nausea 08/08/2015 09/21/2018 Bloating symptom 08/08/2015 09/21/2018 documented as of this encounter (statuses as of 02/27/2022) [facility] Screening for ischemic heart disease- Primary [facility] Diagnosis Shortness of breath 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) Obesity, Class II, BMI 35-39.9 Obesity, unspecified Mixed hyperlipidemia 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 Unspecified drug-induced mental disorder [facility] Diagnosis Sensorineural hearing loss, bilateral- Primary Ear pressure, left Tinnitus, bilateral Unspecified tinnitus [facility] Diagnosis Mild persistent asthma without complication- Primary Unspecified asthma Anxiety and depression Dysthymic disorder SOB (shortness of breath) Shortness of breath Abnormal EKG Nonspecific abnormal electrocardiogram (ECG) (EKG) Chronic pain of left knee Pain in joint, lower leg [facility]* Diagnosis Personal history of colonic polyps- Primary Family history of colon cancer Family history of malignant neoplasm of gastrointestinal tract [facility]* Diagnosis VILLEGAS (dyspnea on exertion)- Primary Other dyspnea and respiratory abnormality Obesity, Class II, BMI 35-39.9 Obesity, unspecified Mixed hyperlipidemia 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 Unspecified drug-induced mental disorder KAI (obstructive sleep apnea) Obstructive sleep apnea (adult) (pediatric) [facility]* Diagnosis KAI (obstructive sleep apnea)- Primary Obstructive sleep apnea (adult) (pediatric) [facility]* Diagnosis Mild persistent asthma without complication Unspecified asthma SOB (shortness of breath) Shortness of breath [facility]* Diagnosis VILLEGAS (dyspnea on exertion) Other dyspnea and respiratory abnormality [facility] Diagnosis Anxiety and depression- Primary Dysthymic disorder Gastroesophageal reflux disease with esophagitis without hemorrhage 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 Unspecified drug-induced mental disorder Mixed hyperlipidemia Mild persistent asthma without complication Unspecified asthma [facility] Diagnosis URI, acute- Primary Acute upper respiratory infections of unspecified site [facility] Diagnosis Anxiety and depression- Primary Dysthymic disorder 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 Unspecified drug-induced mental disorder GERD with esophagitis Family history of colon cancer- Primary Family history of malignant neoplasm of gastrointestinal tract [facility] Tubular adenoma- Primary Benign neoplasm of unspecified site History of colonic polyps Personal history of colonic polyps [facility] Diagnosis KAI on CPAP- Primary Obstructive sleep apnea (adult) (pediatric) Insomnia, unspecified type [facility] KAI on [facility]AP- Primary Obstructive sleep apnea (adult) (pediatric) 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, unspecified [facility] assessment information availableW[facility] Work Phone: Evaluation note* Diagnosis Bulging lumbar disc- Primary Displacement of lumbar intervertebral disc without myelopathy Spinal stenosis of lumbar region without neurogenic claudication Spinal stenosis, lumbar region, without neurogenic claudication Gastroesophageal reflux disease with esophagitis without hemorrhage [facility] Diagnosis Flat feet, bilateral- Primary [facility]* Diagnosis Bulging lumbar disc Displacement of lumbar intervertebral disc without myelopathy Spinal stenosis of lumbar region without neurogenic claudication Spinal stenosis, lumbar region, without neurogenic claudication [facility] Diagnosis Bulging lumbar disc- Primary Displacement of lumbar intervertebral disc without myelopathy Spinal stenosis of lumbar region without neurogenic claudication Spinal stenosis, lumbar region, without neurogenic claudication [facility] Diagnosis Bulging lumbar disc- Primary Displacement of lumbar intervertebral disc without myelopathy Spinal stenosis of lumbar region without neurogenic claudication Spinal stenosis, lumbar region, without neurogenic claudication [facility] Diagnosis Bulging lumbar disc- Primary Displacement of lumbar intervertebral disc without myelopathy Spinal stenosis of lumbar region without neurogenic claudication Spinal stenosis, lumbar region, without neurogenic claudication [facility] Diagnosis Bulging lumbar disc- Primary Displacement of lumbar intervertebral disc without myelopathy Spinal stenosis of lumbar region without neurogenic claudication Spinal stenosis, lumbar region, without neurogenic claudication [facility]* Diagnosis Family history of colon cancer- Primary Family history of malignant neoplasm of gastrointestinal tract History of colonic polyps Personal history of colonic polyps 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 Mixed hyperlipidemia 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 Unspecified drug-induced mental disorder [facility] Diagnosis Spinal stenosis of lumbar region with neurogenic claudication- Primary Spinal stenosis, lumbar region, with neurogenic claudication Bulging lumbar disc Displacement of lumbar intervertebral disc without myelopathy Spinal stenosis of lumbar region without neurogenic claudication Spinal stenosis, lumbar region, without neurogenic claudication [facility] Diagnosis Lumbar radiculopathy- Primary Thoracic or lumbosacral neuritis or radiculitis, unspecified Spinal stenosis, lumbar region with neurogenic claudication [facility]* Diagnosis GERD with esophagitis [facility]* Diagnosis Lumbar radiculopathy- Primary Thoracic or lumbosacral neuritis or radiculitis, unspecified Bulging lumbar disc Displacement of lumbar intervertebral disc without myelopathy Spinal stenosis of lumbar region with neurogenic claudication Spinal stenosis, lumbar region, with neurogenic claudication [facility]* Diagnosis Bulging lumbar disc Displacement of lumbar intervertebral disc without myelopathy Spinal stenosis of lumbar region without neurogenic claudication Spinal stenosis, lumbar region, without neurogenic claudication [facility]* Diagnosis Other infective acute otitis externa of left ear- Primary [facility]* Diagnosis Headache, unspecified headache type- Primary Mental confusion Unspecified psychosis Need for hepatitis C screening test Special screening examination for other specified viral diseases Screening for HIV (human immunodeficiency virus) Special screening examination for other specified viral diseases [facility]* Diagnosis Primary hypertension- Primary Unspecified essential hypertension Mixed hyperlipidemia VILLEGAS (dyspnea on exertion) Other dyspnea and respiratory abnormality Screening for ischemic heart disease 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 Unspecified drug-induced mental disorder documented in this encounter [facility] note* Diagnosis Headache, unspecified headache type Mental confusion Unspecified psychosis [facility]* Diagnosis VILLEGAS (dyspnea on exertion) Other dyspnea and respiratory abnormality Screening for ischemic heart disease [facility]* Diagnosis Headache, unspecified headache type- Primary Enlarged thoracic aorta (HCC) Thoracic aortic ectasia History of colonic polyps Personal history of colonic polyps 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) Primary hypertension Unspecified essential hypertension Mixed hyperlipidemia Mild persistent asthma without complication Unspecified asthma Cellulitis of skin Cellulitis and abscess of unspecified site Eczema, unspecified type [facility]* Diagnosis Screen for colon cancer- Primary Special screening for malignant neoplasms, colon History of colonic polyps Personal history of colonic polyps Family history of colon cancer Family history of malignant neoplasm of gastrointestinal tract [facility]* Diagnosis Mild persistent asthma without complication Unspecified asthma [facility]* Diagnosis Lightheadedness Dizziness and giddiness documented in this encounter [facility] note* Diagnosis GERD with esophagitis documented in this encounter [facility] note* Diagnosis Bulging lumbar disc Displacement of lumbar intervertebral disc without myelopathy Spinal stenosis of lumbar region without neurogenic claudication Spinal stenosis, lumbar region, without neurogenic claudication [facility]* Diagnosis Bulging lumbar disc Displacement of lumbar intervertebral disc without myelopathy Spinal stenosis of lumbar region without neurogenic claudication Spinal stenosis, lumbar region, without neurogenic claudication [facility]* Diagnosis Lumbar radiculopathy- Primary Thoracic or lumbosacral neuritis or radiculitis, unspecified Spinal stenosis of lumbar region without neurogenic claudication Spinal stenosis, lumbar region, without neurogenic claudication Spinal stenosis of lumbar region with neurogenic claudication Spinal stenosis, lumbar region, with neurogenic claudication Bulging lumbar disc Displacement of lumbar intervertebral disc without myelopathy documented in this encounter [facility] note* Diagnosis Chronic pain of left knee Pain in joint, lower leg documented [facility]* Diagnosis Pain of left lower extremity [facility]* Diagnosis Pneumonia due to COVID-19 virus documented in this encounter [facility] note* Diagnosis Pre-op testing- Primary Preoperative examination, unspecified Lumbar radiculopathy Thoracic or lumbosacral neuritis or radiculitis, unspecified Bulging lumbar disc Displacement of lumbar intervertebral disc without myelopathy Spinal stenosis of lumbar region without neurogenic claudication Spinal stenosis, lumbar region, without neurogenic claudication Lumbar radiculopathy Thoracic or lumbosacral neuritis or radiculitis, unspecified Bulging lumbar disc Displacement of lumbar intervertebral disc without myelopathy Spinal stenosis of lumbar region without neurogenic claudication Spinal stenosis, lumbar region, without neurogenic claudication documented in this encounter [facility] note* Diagnosis Lumbar radiculopathy Thoracic or lumbosacral neuritis or radiculitis, unspecified Spinal stenosis of lumbar region without neurogenic claudication Spinal stenosis, lumbar region, without neurogenic claudication Spinal stenosis of lumbar region with neurogenic claudication Spinal stenosis, lumbar region, with neurogenic claudication Bulging lumbar disc Displacement of lumbar intervertebral disc without myelopathy Lumbar radiculopathy Thoracic or lumbosacral neuritis or radiculitis, unspecified Bulging lumbar disc Displacement of lumbar intervertebral disc without myelopathy Spinal stenosis of lumbar region without neurogenic claudication Spinal stenosis, lumbar region, without neurogenic claudication [facility]* Diagnosis Spinal stenosis of lumbar region with neurogenic claudication Spinal stenosis, lumbar region, with neurogenic claudication Lumbar radiculopathy Thoracic or lumbosacral neuritis or radiculitis, unspecified Bulging lumbar disc Displacement of lumbar intervertebral disc without myelopathy Spinal stenosis of lumbar region without neurogenic claudication Spinal stenosis, lumbar region, without neurogenic claudication documented in this encounter [facility] note* Diagnosis Pre-op testing- Primary Preoperative examination, unspecified Primary hypertension Unspecified essential hypertension Mixed hyperlipidemia Enlarged thoracic aorta (HCC) Thoracic aortic ectasia 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) KAI (obstructive sleep apnea) Obstructive sleep apnea (adult) (pediatric) Mild persistent asthma without complication Unspecified asthma Pulmonary nodules Other nonspecific abnormal finding of lung field Anxiety and depression Dysthymic disorder Former smoker Personal history of tobacco use, presenting hazards to health Obesity, Class II, BMI 35-39.9 Obesity, unspecified Lumbar radiculopathy Thoracic or lumbosacral neuritis or radiculitis, unspecified Bulging lumbar disc Displacement of lumbar intervertebral disc without myelopathy Spinal stenosis of lumbar region without neurogenic claudication Spinal stenosis, lumbar region, without neurogenic claudication * Assessment & Plan Note - Igor Quijano APRN.CNP - 05/19/2024 12:16 PM EST Associated Problem(s): Obesity, Class II, BMI 35-39.9 Assessment: Body mass index is 36.03 kg/m . * Assessment & Plan Note - Igor Quijano APRN.CNP - 05/19/2024 12:16 PM EST Associated Problem(s): Former smoker Assessment: vague hx given * Assessment & Plan Note - Igor Quijano APRN.CNP - 05/19/2024 12:15 PM EST Associated Problem(s): Anxiety and depression Assessment: stable on rx per pt * Assessment & Plan Note - Igor Quijano APRN.CNP - 05/19/2024 12:15 PM EST Associated Problem(s): Pulmonary nodules Assessment: under surveillance, unchanged * Assessment & Plan Note - Igor Quijano APRN.CNP - 05/19/2024 12:14 PM EST Associated Problem(s): Mild persistent asthma without complication Assessment: controlled on rx and as needed 12/2023 PFT's IMPRESSION: Spirometry is normal. Shape of flow volume loop shows obstruction. Lung volumes are normal. 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) Assessment: E#F 58%, LV size and function normal 12/27/2023 echo * Assessment & Plan Note - Igor Quijano APRN.CNP - 05/19/2024 12:13 PM EST Associated Problem(s): Enlarged thoracic aorta (HCC) Assessment: borderline dilated 3.8cm 12/27/2023 echo * Assessment & Plan Note - Igor Quijano APRN.CNP - 05/19/2024 12:13 PM EST Associated Problem(s): Mixed hyperlipidemia Assessment: diet controlled * Assessment & Plan Note - Igor Quijano APRN.CNP - 05/19/2024 12:13 PM EST Associated Problem(s): Primary hypertension Assessment: controlled on rx Last 14 BP Last 14 Encounter BP Readings: Date: BP: 05/15/2024 118/80 04/17/2024 147/92 02/17/2024 121/80 01/19/2024 130/80 12/29/2023 132/78 12/06/2023 141/93 11/22/2023 132/90 09/17/2023 113/72 08/20/2023 126/80 07/16/2023 122/77 05/27/2023 141/87 05/26/2023 126/71 04/14/2023 123/85 02/08/2023 [not assessed today[ [facility] Diagnosis Pre-op testing- Primary Preoperative examination, unspecified Primary hypertension Unspecified essential hypertension Mixed hyperlipidemia Enlarged thoracic aorta (HCC) Thoracic aortic ectasia 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) KAI (obstructive sleep apnea) Obstructive sleep apnea (adult) (pediatric) Mild persistent asthma without complication Unspecified asthma Pulmonary nodules Other nonspecific abnormal finding of lung field Anxiety and depression Dysthymic disorder Former smoker Personal history of tobacco use, presenting hazards to health Obesity, Class II, BMI 35-39.9 Obesity, unspecified Lumbar radiculopathy- Primary Thoracic or lumbosacral neuritis or radiculitis, unspecified [facility]* Diagnosis Pre-op testing- Primary Preoperative examination, unspecified Primary hypertension Unspecified essential hypertension Mixed hyperlipidemia Enlarged thoracic aorta (HCC) Thoracic aortic ectasia 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) KAI (obstructive sleep apnea) Obstructive sleep apnea (adult) (pediatric) Mild persistent asthma without complication Unspecified asthma Pulmonary nodules Other nonspecific abnormal finding of lung field Anxiety and depression Dysthymic disorder Former smoker Personal history of tobacco use, presenting hazards to health Obesity, Class II, BMI 35-39.9 Obesity, unspecified Lumbar radiculopathy Thoracic or lumbosacral neuritis or radiculitis, unspecified documented [facility]* Diagnosis Pre-op testing- Primary Preoperative examination, unspecified Primary hypertension Unspecified essential hypertension Mixed hyperlipidemia Enlarged thoracic aorta (HCC) Thoracic aortic ectasia 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) KAI (obstructive sleep apnea) Obstructive sleep apnea (adult) (pediatric) Mild persistent asthma without complication Unspecified asthma Pulmonary nodules Other nonspecific abnormal finding of lung field Anxiety and depression Dysthymic disorder Former smoker Personal history of tobacco use, presenting hazards to health Obesity, Class II, BMI 35-39.9 Obesity, unspecified Primary hypertension- Primary Unspecified essential hypertension Mixed hyperlipidemia Enlarged thoracic aorta (HCC) Thoracic aortic ectasia Anxiety and depression Dysthymic disorder Obesity, Class II, BMI 35-39.9 Obesity, unspecified KAI (obstructive sleep apnea) Obstructive sleep apnea (adult) (pediatric) URI, acute Acute upper respiratory infections of unspecified site SOB (shortness of breath) Shortness of breath URI, acute Acute upper respiratory infections of unspecified site SOB (shortness of breath) Shortness of breath [facility]* Diagnosis Pre-op testing- Primary Preoperative examination, unspecified Primary hypertension Unspecified essential hypertension Mixed hyperlipidemia Enlarged thoracic aorta (HCC) Thoracic aortic ectasia 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) KAI (obstructive sleep apnea) Obstructive sleep apnea (adult) (pediatric) Mild persistent asthma without complication Unspecified asthma Pulmonary nodules Other nonspecific abnormal finding of lung field Anxiety and depression Dysthymic disorder Former smoker Personal history of tobacco use, presenting hazards to health Obesity, Class II, BMI 35-39.9 Obesity, unspecified Lumbar radiculopathy- Primary Thoracic or lumbosacral neuritis or radiculitis, unspecified documented [facility]* Diagnosis Pre-op testing- Primary Preoperative examination, unspecified Primary hypertension Unspecified essential hypertension Mixed hyperlipidemia Enlarged thoracic aorta (HCC) Thoracic aortic ectasia 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) KAI (obstructive sleep apnea) Obstructive sleep apnea (adult) (pediatric) Mild persistent asthma without complication Unspecified asthma Pulmonary nodules Other nonspecific abnormal finding of lung field Anxiety and depression Dysthymic disorder Former smoker Personal history of tobacco use, presenting hazards to health Obesity, Class II, BMI 35-39.9 Obesity, unspecified URI, acute Acute upper respiratory infections of unspecified site SOB (shortness of breath) Shortness of breath [facility]* Diagnosis Pre-op testing- Primary Preoperative examination, unspecified Primary hypertension Unspecified essential hypertension Mixed hyperlipidemia Enlarged thoracic aorta (HCC) Thoracic aortic ectasia 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) KAI (obstructive sleep apnea) Obstructive sleep apnea (adult) (pediatric) Mild persistent asthma without complication Unspecified asthma Pulmonary nodules Other nonspecific abnormal finding of lung field Anxiety and depression Dysthymic disorder Former smoker Personal history of tobacco use, presenting hazards to health Obesity, Class II, BMI 35-39.9 Obesity, unspecified Lumbar radiculopathy- Primary Thoracic or lumbosacral neuritis or radiculitis, unspecified documented [facility]* Diagnosis Pre-op testing- Primary Preoperative examination, unspecified Primary hypertension Unspecified essential hypertension Mixed hyperlipidemia Enlarged thoracic aorta Thoracic aortic ectasia 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) KAI (obstructive sleep apnea) Obstructive sleep apnea (adult) (pediatric) Mild persistent asthma without complication (HCC) Unspecified asthma Pulmonary nodules Other nonspecific abnormal finding of lung field Anxiety and depression Dysthymic disorder Former smoker Personal history of tobacco use, presenting hazards to health Obesity, Class II, BMI 35-39.9 Obesity, unspecified GERD with esophagitis documented [facility]* Diagnosis Pre-op testing- Primary Preoperative examination, unspecified Primary hypertension Unspecified essential hypertension Mixed hyperlipidemia Enlarged thoracic aorta Thoracic aortic ectasia 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) KAI (obstructive sleep apnea) Obstructive sleep apnea (adult) (pediatric) Mild persistent asthma without complication (HCC) Unspecified asthma Pulmonary nodules Other nonspecific abnormal finding of lung field Anxiety and depression Dysthymic disorder Former smoker Personal history of tobacco use, presenting hazards to health Obesity, Class II, BMI 35-39.9 Obesity, unspecified Mixed hyperlipidemia- Primary Primary hypertension Unspecified essential hypertension 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) Gastroesophageal reflux disease without esophagitis Esophageal reflux Change in bowel function Other symptoms involving digestive system Neck mass Swelling, mass, or lump in head and neck Abdominal discomfort Abdominal pain, unspecified site [facility] Diagnosis Pre-op testing- Primary Preoperative examination, unspecified Primary hypertension Unspecified essential hypertension Mixed hyperlipidemia Enlarged thoracic aorta Thoracic aortic ectasia 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) KAI (obstructive sleep apnea) Obstructive sleep apnea (adult) (pediatric) Mild persistent asthma without complication (HCC) Unspecified asthma Pulmonary nodules Other nonspecific abnormal finding of lung field Anxiety and depression Dysthymic disorder Former smoker Personal history of tobacco use, presenting hazards to health Obesity, Class II, BMI 35-39.9 Obesity, unspecified Elevated alkaline phosphatase level- Primary Other nonspecific abnormal serum enzyme levels [facility]* Diagnosis Pre-op testing- Primary Preoperative examination, unspecified Primary hypertension Unspecified essential hypertension Mixed hyperlipidemia Enlarged thoracic aorta Thoracic aortic ectasia 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) KAI (obstructive sleep apnea) Obstructive sleep apnea (adult) (pediatric) Mild persistent asthma without complication (HCC) Unspecified asthma Pulmonary nodules Other nonspecific abnormal finding of lung field Anxiety and depression Dysthymic disorder Former smoker Personal history of tobacco use, presenting hazards to health Obesity, Class II, BMI 35-39.9 Obesity, unspecified Neck mass Swelling, mass, or lump in head and neck [facility]* Diagnosis Pre-op testing- Primary Preoperative examination, unspecified Primary hypertension Unspecified essential hypertension Mixed hyperlipidemia Enlarged thoracic aorta Thoracic aortic ectasia 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) KAI (obstructive sleep apnea) Obstructive sleep apnea (adult) (pediatric) Mild persistent asthma without complication (HCC) Unspecified asthma Pulmonary nodules Other nonspecific abnormal finding of lung field Anxiety and depression Dysthymic disorder Former smoker Personal history of tobacco use, presenting hazards to health Obesity, Class II, BMI 35-39.9 Obesity, unspecified Gastroesophageal reflux disease, unspecified whether esophagitis present- Primary Abdominal cramping Abdominal pain, unspecified site Change in bowel habits Other symptoms involving digestive system documented in this encounter [facility] [facility] Diagnosis Pre-op testing- Primary Preoperative examination, unspecified Primary hypertension Unspecified essential hypertension Mixed hyperlipidemia Enlarged thoracic aorta Thoracic aortic ectasia 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) KAI (obstructive sleep apnea) Obstructive sleep apnea (adult) (pediatric) Mild persistent asthma without complication (HCC) Unspecified asthma Pulmonary nodules Other nonspecific abnormal finding of lung field Anxiety and depression Dysthymic disorder Former smoker Personal history of tobacco use, presenting hazards to health Obesity, Class II, BMI 35-39.9 Obesity, unspecified Lumbar radiculopathy- Primary Thoracic or lumbosacral neuritis or radiculitis, unspecified [facility] Diagnosis Pre-op testing- Primary Preoperative examination, unspecified Primary hypertension Unspecified essential hypertension Mixed hyperlipidemia Enlarged thoracic aorta Thoracic aortic ectasia 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) KAI (obstructive sleep apnea) Obstructive sleep apnea (adult) (pediatric) Mild persistent asthma without complication (HCC) Unspecified asthma Pulmonary nodules Other nonspecific abnormal finding of lung field Anxiety and depression Dysthymic disorder Former smoker Personal history of tobacco use, presenting hazards to health Obesity, Class II, BMI 35-39.9 Obesity, unspecified Elevated alkaline phosphatase level- Primary Other nonspecific abnormal serum enzyme levels [facility] Diagnosis Pre-op testing- Primary Preoperative examination, unspecified Primary hypertension Unspecified essential hypertension Mixed hyperlipidemia Enlarged thoracic aorta Thoracic aortic ectasia 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) KAI (obstructive sleep apnea) Obstructive sleep apnea (adult) (pediatric) Mild persistent asthma without complication (HCC) Unspecified asthma Pulmonary nodules Other nonspecific abnormal finding of lung field Anxiety and depression Dysthymic disorder Former smoker Personal history of tobacco use, presenting hazards to health Obesity, Class II, BMI 35-39.9 Obesity, unspecified Elevated alkaline phosphatase level Other nonspecific abnormal serum enzyme levels documented in this encounter [facility] for referral (narrative)* Outpatient Procedure (Routine) - Authorized Specialty Diagnoses / Procedures Referred By Contac t Referred To [facility] Diagnoses Screening for ischemic heart disease Procedures ECG COMPLETE ECG ROUTINE ECG W/LEAST 12 LDS W/I&R Risa Campa MD [address] [place] [address] [address] Referral ID Status Reason Start Date Expiration Date Visits Requested Visits Authorized [id number] Authorized Auto-Generat ed Referral 08/26/2021 08/26/2022 1 1 [facility] for referral (narrative)* Outpatient Procedure (Routine) - Additional Clinical Info Needed Specialty Diagnoses / Procedures Referred By Contac t Referred To Contact HEART [facility] [place] Diagnoses Shortness of breath 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) Procedures ECHO ECHO TTHRC R-T 2D W/WOM-MODE COMPL SPEC&COLR D Risa Campa MD [address] [place] [address] [place] [id number] Referral ID Status Reason Start Date Expiration Date Visits Requested Visits Authorized [id number] Additional Clinical Info Needed Auto-Generat ed Referral 09/01/2021 09/01/2022 1 1 [facility] for referral (narrative)* Diagnostic Procedure Only (Routine) - Closed Specialty Diagnoses / Procedures Referred By Contac t Referred To Contact XR IMAGING Diagnoses Chronic pain of left knee Procedures XR KNEE GENERAL 4V AP BOTH/PA BOTH/LAT/MERC LEFT RADIOLOGIC EXAM KNEE COMPLETE 4/MORE VIEWS Conor Pantoja MD [address] [place] [address] Xr Imaging Referral ID Status Reason Start Date Expiration Date V isits Requested Visits Authorized [id number] Closed Auto-Generate d Referral 10/24/2021 11/23/2022 1 1 * Outpatient Procedure (Routine) - Pending Review Specialty Diagnoses / Procedures Referred By Contac t Referred To Contact [facility] Diagnoses Mild persistent asthma without complication SOB (shortness of breath) Procedures SPIROMETRY - BASELINE AND POST DILATOR BRNCDILAT RSPSE SPMTRY PRE&POST-BRNCDILAT N Conor Pantoja MD [address] [place] [address] [facility] [address] [place] [address] Referral ID Status Reason Start Date Expiration Date Visits Requested Visits Authorized [id number] Pending Review Auto-Generat ed Referral 10/24/2021 11/23/2022 1 1 [facility] for referral (narrative)* Outpatient Procedure (Routine) - Pending Review Specialty Diagnoses / Procedures Referred By Tatum pisano Referred To Contact [facility] Diagnoses Personal history of colonic polyps Family history of colon cancer Procedures COLONOSCOPY DIAGNOSTIC COLONOSCOPY FLX DX W/COLLJ SPEC WHEN PFRMD Sukhjinder Dunn MD [address] [place] [address] [facility] [address] [place] [address] Referral ID Status Reason Start Date Expiration Date Visits Requested Visits Authorized [id number] Pending Review Auto-Generat ed Referral 10/31/2021 10/31/2022 1 1 [facility] for referral (narrative)* Diagnostic Procedure Only (Routine) - Authorized Specialty Diagnoses / Procedures Referred By Tatum pisano Referred To Contact MOLECULAR & FUNCTIONAL IMAGING Diagnoses VILLEGAS (dyspnea on exertion) Procedures NM CARDIAC PERF STRESS/EXERCISE MYOCARDIAL SPECT MULTIPLE STUDIES Ju French, OIL PIPE INSPECTOR HELPER.GRAIN DRIER [address] [facility] [address] [place] [address] Molecular & Functional Imaging [address] [place] [address] Referral ID Status Reason Start Date Expiration Date Visits Requested Visits Authorized [id number] Authorized Auto-Generat ed Referral 12/15/2021 01/14/2023 3 3 [facility] for referral (narrative)* Diagnostic Procedure Only (Routine) - Pending Review Specialty Diagnoses / Procedures Referred By Contac t Referred To Contact XR IMAGING Diagnoses Flat feet, bilateral Procedures XR FOOT GENERAL 3V AP/LAT/OBL BILATERAL RADEX FOOT COMPLETE MINIMUM 3 VIEWS Carrillo Nelson [address] [place] [address] Xr Imaging Referral ID Status Reason Start Date Expiration Date Visits Requested Visits Authorized [id number] Pending Review Auto-Generat ed Referral 12/14/2022 01/13/2024 1 1 [facility] for referral (narrative)* Diagnostic Procedure Only (Routine) - Pending Review Specialty Diagnoses / Procedures Referred By Contac t Referred To Contact XR IMAGING Diagnoses Bulging lumbar disc Spinal stenosis of lumbar region without neurogenic claudication Procedures XR LUMBAR MOTION 4V AP/LAT/ FLEX/EXT RADEX SPINE LUMBOSACRAL MINIMUM 4 VIEWS Risa Steiner PA-C [address] [place] [phone] [place] [address] Referral ID Status Reason Start Date Expiration Date Visits Requested Visits Authorized [id number] Pending Review Auto-Generat ed Referral 01/07/2023 02/06/2024 1 1 * - Pending Review Specialty Diagnoses / Procedures Referred By Contac t Referred To Contact Physical Therapy Diagnoses Bulging lumbar disc Spinal stenosis of lumbar region without neurogenic claudication Procedures CONSULT TO PHYSICAL THERAPY Risa Steiner PA-C [address] [place] [address] Referral ID Status Reason Start Date Expiration Date V isits Requested Visits Authorized [id number] Pending Review 01/07/2023 04/07/2023 1 1 [facility] for referral (narrative)* Outpatient Procedure (Routine) - Closed Specialty Diagnoses / Procedures Referred By Contac t Referred To Contact [facility] Diagnoses History of colonic polyps Family history of colon cancer Procedures COLONOSCOPY DIAGNOSTIC COLONOSCOPY FLX DX W/COLLJ SPEC WHEN PFRMD Sukhjinder Dunn MD [address] [place] [address] [facility] [address] [place] [address] Referral ID Status Reason Start Date Expiration Date V isits Requested Visits Authorized [id number] Closed Auto-Generate d Referral 03/27/2022 03/27/2023 1 1 [facility] for referral (narrative)* Outpatient Procedure (Routine) - Additional Clinical Info Needed Specialty Diagnoses / Procedures [facility] Referred To Contact [facility] [place] Diagnoses VILLEGAS (dyspnea on exertion) Screening for ischemic heart disease Procedures ECHO ECHO TTHRC R-T 2D W/WOM-MODE COMPL SPEC&COLR D Risa Campa MD [address] [facility] [address] [place] [address] [facility] [address] [place] [address] Referral ID Status Reason Start Date Expiration Date Visits Requested Visits Authorized [id number] Additional Clinical Info Needed Auto-Generat ed Referral 12/06/2023 12/05/2024 1 1 * Outpatient Procedure (Routine) - New Request Specialty Diagnoses / Procedures [facility] Referred To Contact [facility] [place] Diagnoses Mixed hyperlipidemia VILLEGAS (dyspnea on exertion) Screening for ischemic heart disease Procedures ECG COMPLETE ECG ROUTINE ECG W/LEAST 12 LDS W/I&R Risa Campa MD [address] [facility] [address] [place] [address] [facility] [address] [place] [address] Referral ID Status Reason Start Date Expiration Date Visits Requested Visits Authorized [id number] New Request Auto-Generat ed Referral 12/03/2023 12/02/2024 1 1 [facility] for referral (narrative)* Outpatient Procedure (Routine) - New Request Specialty Diagnoses / Procedures Referred By Contac t Referred To Contact [facility] Diagnoses History of colonic polyps Screen for colon cancer Procedures COLONOSCOPY SCREENING COLONOSCOPY FLX DX W/COLLJ SPEC WHEN Alyse Louise APRN.CNP [address] [facility] [address] [facility] [address] [place] [address] Referral ID Status Reason Start Date Expiration Date Visits Requested Visits Authorized [id number] New Request Auto-Generat ed Referral 01/19/2024 01/18/2025 1 1 [facility] for referral (narrative)* Diagnostic Procedure Only (Routine) - Closed Specialty Diagnoses / Procedures Referred By Contac t Referred To Contact XR IMAGING Diagnoses Bulging lumbar disc Spinal stenosis of lumbar region without neurogenic claudication Procedures XR LUMBAR MOTION 4V AP/LAT/ FLEX/EXT RADEX SPINE LUMBOSACRAL MINIMUM 4 VIEWS Risa Steiner PA-C [address] [place] [address] [place] [address] Referral ID Status Reason Start Date Expiration Date V isits Requested Visits Authorized [id number] Closed Auto-Generate d Referral 01/07/2023 02/06/2024 1 1 [facility] for referral (narrative)* Diagnostic Procedure Only (Routine) - Closed Specialty Diagnoses / Procedures Referred By Contac t Referred To Contact XR IMAGING Diagnoses Chronic pain of left knee Procedures XR KNEE GENERAL 4V AP BOTH/PA BOTH/LAT/MERC LEFT RADIOLOGIC EXAM KNEE COMPLETE 4/MORE VIEWS Conor Pantoja MD [address] [place] [address] [place] [address] Referral ID Status Reason Start Date Expiration Date V isits Requested Visits Authorized [id number] Closed Auto-Generate d Referral 10/24/2021 11/23/2022 1 1 [facility] for visit Narrative* Diagnostic Procedure Only (Routine) - Authorized Specialty Diagnoses / Procedures [facility] To Contact MOLECULAR & FUNCTIONAL IMAGING Diagnoses VILLEGAS (dyspnea on exertion) Procedures NM CARDIAC PERF STRESS/EXERCISE MYOCARDIAL SPECT MULTIPLE STUDIES Ju French APRN.GRAIN DRIER [address] [facility] [address] [place] [address] Molecular & Functional Imaging [address] [place] [address] Referral ID Status Reason Start Date Expiration Date Visits Requested Visits Authorized [id number] Authorized Auto-Generat ed Referral 12/15/2021 01/14/2023 3 3 [facility] for visit Narrative* Outpatient Procedure (Routine) - Closed Specialty Diagnoses / Procedures Referred By [facility] Referred To Contact [facility] Diagnoses History of colonic polyps Family history of colon cancer Procedures COLONOSCOPY DIAGNOSTIC COLONOSCOPY FLX DX W/COLLJ SPEC WHEN PFRMD Sukhjinder Dunn MD [address] [facility] [place] [address] [facility] [address] [place] [address] Referral ID Status Reason Start Date Expiration Date V isits Requested Visits Authorized [id number] Closed Auto-Generate d Referral 03/27/2022 03/27/2023 1 1 [facility] for visit Narrative* Outpatient Procedure (Routine) - Closed Specialty Diagnoses / Procedures [facility] To Contact [facility] Diagnoses VILLEGAS (dyspnea on exertion) Screening for ischemic heart disease Procedures ECHO ECHO TTHRC R-T 2D W/WOM-MODE COMPL SPEC&COLR D Risa Campa MD [address] [address] [place] [address] Fax: [facility] [address] [place] [address] Referral ID Status Reason Start Date Expiration Date V isits Requested Visits Authorized [id number] Closed Auto-Generate d Referral 12/14/2023 02/12/2024 1 1 [facility] for visit Narrative* Outpatient Procedure (Routine) - Closed Specialty Diagnoses / Procedures Referred By Contac t Referred To Contact [facility] Diagnoses Lightheadedness Procedures US CAROTID ARTERIES NEY VAS LAB DUPLEX SCAN EXTRACRANIAL ART COMPL BI STUDY JocelynJu, OIL PIPE INSPECTOR HELPER.GRAIN DRIER [address] [facility] [address] [place] [address] [facility] [address] [place] [address] Referral ID Status Reason Start Date Expiration Date V isits Requested Visits Authorized [id number] Closed Auto-Generate d Referral 12/22/2023 12/21/2024 1 1 [facility] for visit Narrative* Diagnostic Procedure Only (Routine) - Closed Specialty Diagnoses / Procedures Referred By Contac t Referred To Contact XR IMAGING Diagnoses Bulging lumbar disc Spinal stenosis of lumbar region without neurogenic claudication Procedures XR LUMBAR MOTION 4V AP/LAT/ FLEX/EXT RADEX SPINE LUMBOSACRAL MINIMUM 4 VIEWS Risa Steiner PA-C [address] [place] [address] Xr Imaging [facility] Referral ID Status Reason Start Date Expiration Date V isits Requested Visits Authorized [id number] Closed Auto-Generate d Referral 01/07/2023 02/06/2024 1 1 [facility] for visit Narrative* Diagnostic Procedure Only (Routine) - Closed Specialty Diagnoses / Procedures Referred By Contac t Referred To Contact XR IMAGING Diagnoses Chronic pain of left knee Procedures XR KNEE GENERAL 4V AP BOTH/PA BOTH/LAT/MERC LEFT RADIOLOGIC EXAM KNEE COMPLETE 4/MORE VIEWS Conor Pantoja MD [address] [place] [address] [place] [address] Referral ID Status Reason Start Date Expiration Date V isits Requested Visits Authorized [id number] Closed Auto-Generate d Referral 10/24/2021 11/23/2022 1 1 [facility] for visit Narrative* Diagnostic Procedure Only (Routine) - Closed Specialty Diagnoses / Procedures Referred By Contac t Referred To Contact MOLECULAR & FUNCTIONAL IMAGING Diagnoses Elevated alkaline phosphatase level Procedures NM BONE WHOLE BODY BONE &/JOINT IMAGING WHOLE BODY Conor Pantoja MD [address] [place] [address] Phone: tel: fax: Molecular Imaging [address] [place] [address] Phone: tel: Referral ID Status Reason Start Date Expiration Date V isits Requested Visits Authorized [id number] Closed Auto-Generate d Referral 12/27/2024 01/26/2026 1 1 [facility] Summary Purpose Family History No Family History Records FoundNo Family History Records FoundNo Family History Records FoundNo Family History Records FoundNo Family History Records FoundNo Family History Records FoundNo Family History Records FoundNo Family History Records Found Advance Directives No Advanced Directives Records FoundDocuments on File Type Date Recorded Patient Back End Developer Expl anation Advance Directive(s) 09/03/2020 9:30 PM Advance Directive(s) 08/29/2020 2:16 PM Advance Directive(s) 10/10/2019 5:23 PM Advance Directive(s) 11/19/2018 12:37 AM Advance Directive(s) 06/16/2018 11:27 PM Advance Directive(s) 10/24/2017 1:46 AM Advance Directive(s) 08/21/2015 8:43 AM Advance Directive(s) 08/21/2015 8:49 AM Advance Directive(s) 08/03/2015 10:22 AM Documents on File Type Date Recorded Patient Back End Developer Expl anation Advance Directive(s) 09/03/2020 9:30 PM Advance Directive(s) 08/29/2020 2:16 PM Advance Directive(s) 10/10/2019 5:23 PM Advance Directive(s) 11/19/2018 12:37 AM Advance Directive(s) 06/16/2018 11:27 PM Advance Directive(s) 10/24/2017 1:46 AM Advance Directive(s) 08/21/2015 8:43 AM Advance Directive(s) 08/21/2015 8:49 AM Advance Directive(s) 08/03/2015 10:22 AM Documents on File Type Date Recorded Patient Back End Developer Expl anation Advance Directive(s) 08/21/2015 8:49 AM Documents on File Type Date Recorded Patient Back End Developer Expl anation Advance Directive(s) 08/21/2015 8:49 AM Advance Directive Response Recorded Date/ Time Living Will Yes November 27, 2022 4 :53pm Power of Patch Washer Yes November 27, 2022 4:53pm Name of Medical Power of Patch Washer JU QUESADA November 27, 2022 4:53pm Reason for Referral Specialty Diagnoses / Procedures Referred By Contac t Referred To Contact Diagnoses VILLEGAS (dyspnea on exertion) KAI (obstructive sleep apnea) Procedures CONSULT TO SLEEP MEDICINE - ADULT OFFICE/OUTPATIENT [facility] 60-74 MINUTES Ju French APRN.GRAIN DRIER [address] [facility] [address] [place] [address] Referral ID Status Reason Start Date Expiration Date Visits Requested Visits Authorized [id number] Authorized PCP Requested Referral 12/15/2021 12/15/2022 1 1 Specialty Diagnoses / Procedures Referred By Contac t Referred To Contact MOLECULAR & FUNCTIONAL IMAGING Diagnoses VILLEGAS (dyspnea on exertion) Procedures NM CARDIAC PERF STRESS/EXERCISE MYOCARDIAL SPECT MULTIPLE STUDIES Ju French APRN.GRAIN DRIER [address] [facility] [address] [place] [address] Molecular & Functional Imaging [address] [place] [address] Referral ID Status Reason Start Date Expiration Date Visits Requested Visits Authorized [id number] Pending Review Auto-Generat ed Referral 12/15/2021 01/14/2023 1 1 Specialty Diagnoses / Procedures Referred By Contac t Referred To Contact [facility] Diagnoses Bulging lumbar disc Spinal stenosis of lumbar region without neurogenic claudication Procedures CONSULT TO [facility] OFFICE/OUTPATIENT [facility] 60-74 MINUTES Conor Pantoja MD [facility] [place] [address] Referral ID Status Reason Start Date Expiration Date Visits Requested Visits Authorized [id number] Authorized PCP Requested Referral 12/02/2022 12/02/2023 1 1 Specialty Diagnoses / Procedures Referred By Contac t Referred To Contact [facility] Diagnoses Bulging lumbar disc Spinal stenosis of lumbar region without neurogenic claudication Procedures PT REHAB FOLLOW UP ORDER THERAPEUTIC EXERCISES RE, EA 15 MIN. Lemon, Janice, PT [facility] [address] [place] [address] Referral ID Status Reason Start Date Expiration Date Visits Requested Visits Authorized [id number] Pending Review PCP Requested Referral Auto-Generate d Referral 02/08/2023 05/09/2023 1 1 Specialty Diagnoses / Procedures Referred By Contac t Referred To Contact MR IMAGING Diagnoses Bulging lumbar disc Spinal stenosis of lumbar region without neurogenic claudication Spinal stenosis of lumbar region with neurogenic claudication Procedures MRI LUMBAR SPINE WO IVCON MRI SPINAL CANAL LUMBAR W/O CONTRAST MATERIAL Risa Steiner PA-C [address] [place] [address] Mr Imaging [facility] Referral ID Status Reason Start Date Expiration Date Visits Requested Visits Authorized [id number] Pending Review Auto-Generat ed Referral 05/13/2024 1 1 Specialty Diagnoses / Procedures Referred By Contac t Referred To Contact MR IMAGING Diagnoses Headache, unspecified headache type Mental confusion Procedures MRI BRAIN WO/W IVCON MRI BRAIN BRAIN STEM W/O W/CONTRAST MATERIAL Conor Pantoja MD [address] [place], [place] [id number] Mr Imaging [place] [address] Referral ID Status Reason Start Date Expiration Date Visits Requested Visits Authorized [id number] Pending Review Auto-Generat ed Referral 11/22/2023 12/21/2024 1 1 Referral ID Status Reason Start Date Expiration Date V isits Requested Visits Authorized [id number] Closed Auto-Generate d Referral 12/13/2023 02/11/2024 1 1 Specialty Diagnoses / Procedures Referred By Contac t Referred To Contact General Surgery Diagnoses History of colonic polyps Procedures CONSULT TO GENERAL SURGERY OFFICE/OUTPATIENT [facility] MDM 60 MINUTES Conor Pantoja MD [address] [place] [address] Referral ID Status Reason Start Date Expiration Date Visits Requested Visits Authorized [id number] Authorized PCP Requested Referral 12/29/2023 12/28/2024 1 1 Specialty Diagnoses / Procedures Referred By Contac t Referred To Contact [facility] Diagnoses Mild persistent asthma without complication Procedures LUNG VOLUMES Conor Pantoja MD [address] [place] [address] [facility] [place] [phone] Referral ID Status Reason Start Date Expiration Date Visits Requested Visits Authorized [id number] Pending Review Auto-Generat ed Referral 12/29/2023 01/27/2025 1 1 Specialty Diagnoses / Procedures Referred By Contac t Referred To Contact [facility] Diagnoses Mild persistent asthma without complication Procedures SPIROMETRY WITH DILATOR IF OBSTRUCTED BRNCDILAT RSPSE SPMTRY PRE&POST-BRNCDILAT ADMN Conor Pantoja MD [address] [place] [address] [facility] [address] [place] [address] Referral ID Status Reason Start Date Expiration Date Visits Requested Visits Authorized [id number] Authorized Auto-Generat ed Referral 12/29/2023 01/27/2025 1 1 Specialty Diagnoses / Procedures Referred By Contac t Referred To Contact Neurosurgery Diagnoses Lumbar radiculopathy Spinal stenosis of lumbar region without neurogenic claudication Spinal stenosis of lumbar region with neurogenic claudication Bulging lumbar disc Procedures CONSULT TO NEUROSURGERY OFFICE/OUTPATIENT [facility] 60 MINUTES Risa Steiner PA-C [address] [place] [address] Referral ID Status Reason Start Date Expiration Date Visits Requested Visits Authorized [id number] Authorized PCP Requested Referral 02/17/2024 05/17/2024 1 1 Specialty Diagnoses / Procedures Referred By Contac t Referred To Contact Diagnoses Pre-op testing Procedures REFER TO [facility] - PREOPERATIVE OPTIMIZATION OFFICE/OUTPATIENT [facility] 60 MINUTES Debora Baldwin, OIL PIPE INSPECTOR HELPER.GRAIN DRIER [address] [place] [address] Referral ID Status Reason Start Date Expiration Date Visits Requested Visits Authorized [id number] Authorized PCP Requested Referral 04/24/2024 04/24/2025 1 1 Specialty Diagnoses / Procedures Referred By Contac t Referred To Contact MR IMAGING Diagnoses Spinal stenosis of lumbar region with neurogenic claudication Procedures MRI LUMBAR SPINE WO IVCON MRI SPINAL CANAL LUMBAR W/O CONTRAST MATERIAL Silas Brown MD [address] [place] [address] Mr Imaging [facility] Referral ID Status Reason Start Date Expiration Date Visits Requested Visits Authorized [id number] Authorized Auto-Generat ed Referral Clearance Not Met - Admin/Chairm an/Director Advise to Postpone/Res chedule or Not Proceed 04/25/2024 06/24/2024 1 1 Referral ID Status Reason Start Date Expiration Date V isits Requested Visits Authorized [id number] Closed Auto-Generat ed Referral Clearance Not Met - Admin/Chairm an/Director Advise to Postpone/Res chedule or Not Proceed 04/25/2024 06/24/2024 1 1 Specialty Diagnoses / Procedures Referred By Contac t Referred To Contact [facility] Diagnoses Lumbar radiculopathy Procedures CONSULT TO PHYSICAL THERAPY PHYSICAL THERAPY EVALUATION HIGH COMPLEX 45 MINS Meghan Naik PA-C [address] [place] [address] [facility] [address] [place] [address] Referral ID Status Reason Start Date Expiration Date Visits Requested Visits Authorized [id number] Pending Review Auto-Generat ed Referral 06/21/2024 06/21/2025 1 1 Health Concerns Infection Onset Date Last Indicated Resolved Time COVID-19 Rule-Out 05/12/2022 05/12/2022 Chief Complaint and Reason for Visit Chief Complaint flank pain Medications Administered Section Inactive Administered Medications - up to 3 most recent administrations Medication Order MAR Action Action Date Dose Rate Site diphenhydrAMINE 12.5-50 mg injection (BENADRYL) 12.5-50 mg, INTRAVENOUS, DIRECTED, Starting on Wed06/15/22 at 1000, Until Wed06/15/22 at 1359, DOSING DIRECTED BY PHYSICIAN FOR PROCEDURAL SEDATION ONLY, Intraprocedure Given 06/15/2022 9:34 AM EST 50 mg fentaNYL 50 mcg/mL 25-100 mcg injection (SUBLIMAZE) 25-100 mcg, INTRAVENOUS, DIRECTED, Starting on Wed06/15/22 at 1000, Until Wed06/15/22 at 1359, DOSING DIRECTED BY PHYSICIAN FOR PROCEDURAL SEDATION ONLY, Intraprocedure Given 06/15/2022 9:39 AM EST 50 mcg Given 06/15/2022 9:32 AM EST 50 mcg lactated ringers iv infusion 30 mL/hr, INTRAVENOUS, CONTINUOUS, Starting on Wed06/15/22 at 0900, Until Wed06/15/22 at 1003, Preprocedure New Bag/Syringe/Bottle 06/15/2022 9:05 AM EST 30 mL/hr 30 mL/hr Wrist, Right midazolam 1-5 mg injection (VERSED) 1-5 mg, INTRAVENOUS, DIRECTED, Starting on Wed06/15/22 at 1000, Until Wed06/15/22 at 1359, DOSING DIRECTED BY PHYSICIAN FOR PROCEDURAL SEDATION ONLY, Intraprocedure Given 06/15/2022 9:42 AM EST 2 mg Given 06/15/2022 9:36 AM EST 2 mg Given 06/15/2022 9:32 AM EST 3 mg Additional Source Comments (unrecognized sect ion and content) No Status Records FoundNo Status Records FoundNo Status Records FoundNo Status Records FoundNo Status Records FoundNo Status Records FoundNo Status Records FoundNo Status Records Found INFORMATION SOURCE (unrecogn ized section and content) DATE CREATED AUTHOR 05/27/2018 [facility] DATE CREATED AUTHOR AUTHOR'S ORGANIZ ATION 10/10/2019 [facility] DATE CREATED AUTHOR AUTHOR'S ORGANIZ ATION 12/04/2022 [facility] DATE CREATED AUTHOR AUTHOR'S ORGANIZ ATION 09/04/2023 [facility] DATE CREATED AUTHOR AUTHOR'S ORGANIZ ATION 01/27/2024 [facility] DATE CREATED AUTHOR AUTHOR'S ORGANIZ ATION 06/09/2024 [facility] DATE CREATED AUTHOR AUTHOR'S ORGANIZ ATION 01/02/2025 [facility] DATE CREATED AUTHOR AUTHOR'S ORGANIZ ATION 03/03/2025 [facility] Source Comments (unrecognize d section and content) In the event this informatio n is protected by the Federal Confidentiality of Alcohol and Drug Abuse Patient Records regulations: The Federal rules restrict any use of the information to criminally investigate or prosecute any alcohol or drug abuse patient.[facility] the event this information is protected by the Federal Confidentiality of Alcohol and Drug Abuse Patient Records regulations: The Federal rules restrict any use of the information to criminally investigate or prosecute any alcohol or drug abuse patient.[facility] the event this information is protected by the Federal Confidentiality of Alcohol and Drug Abuse Patient Records regulations: The Federal rules restrict any use of the information to criminally investigate or prosecute any alcohol or drug abuse patient.[facility] the event this information is protected by the Federal Confidentiality of Alcohol and Drug Abuse Patient Records regulations: The Federal rules restrict any use of the information to criminally investigate or prosecute any alcohol or drug abuse patient.[facility]In the event this information is protected by the Federal Confidentiality of Alcohol and Drug Abuse Patient Records regulations: The Federal rules restrict any use of the information to criminally investigate or prosecute any alcohol or drug abuse patient.[facility]In the event this information is protected by the Federal Confidentiality of Alcohol and Drug Abuse Patient Records regulations: The Federal rules restrict any use of the information to criminally investigate or prosecute any alcohol or drug abuse patient.[facility]In the event this information is protected by the Federal Confidentiality of Alcohol and Drug Abuse Patient Records regulations: The Federal rules restrict any use of the information to criminally investigate or prosecute any alcohol or drug abuse patient.[facility]In the event this information is protected by the Federal Confidentiality of Alcohol and Drug Abuse Patient Records regulations: The Federal rules restrict any use of the information to criminally investigate or prosecute any alcohol or drug abuse patient.[facility]In the event this information is protected by the Federal Confidentiality of Alcohol and Drug Abuse Patient Records regulations: The Federal rules restrict any use of the information to criminally investigate or prosecute any alcohol or drug abuse patient.[facility]In the event this information is protected by the Federal Confidentiality of Alcohol and Drug Abuse Patient Records regulations: The Federal rules restrict any use of the information to criminally investigate or prosecute any alcohol or drug abuse patient.[facility]In the event this information is protected by the Federal Confidentiality of Alcohol and Drug Abuse Patient Records regulations: The Federal rules restrict any use of the information to criminally investigate or prosecute any alcohol or drug abuse patient.[facility]In the event this information is protected by the Federal Confidentiality of Alcohol and Drug Abuse Patient Records regulations: The Federal rules restrict any use of the information to criminally investigate or prosecute any alcohol or drug abuse patient.[facility]In the event this information is protected by the Federal Confidentiality of Alcohol and Drug Abuse Patient Records regulations: The Federal rules restrict any use of the information to criminally investigate or prosecute any alcohol or drug abuse patient.[facility] the event this information is protected by the Federal Confidentiality of Alcohol and Drug Abuse Patient Records regulations: The Federal rules restrict any use of the information to criminally investigate or prosecute any alcohol or drug abuse patient.[facility]In the event this information is protected by the Federal Confidentiality of Alcohol and Drug Abuse Patient Records regulations: The Federal rules restrict any use of the information to criminally investigate or prosecute any alcohol or drug abuse patient.[facility]In the event this information is protected by the Federal Confidentiality of Alcohol and Drug Abuse Patient Records regulations: The Federal rules restrict any use of the information to criminally investigate or prosecute any alcohol or drug abuse patient.[facility]In the event this information is protected by the Federal Confidentiality of Alcohol and Drug Abuse Patient Records regulations: The Federal rules restrict any use of the information to criminally investigate or prosecute any alcohol or drug abuse patient.[facility]In the event this information is protected by the Federal Confidentiality of Alcohol and Drug Abuse Patient Records regulations: The Federal rules restrict any use of the information to criminally investigate or prosecute any alcohol or drug abuse patient.[facility]In the event this information is protected by the Federal Confidentiality of Alcohol and Drug Abuse Patient Records regulations: The Federal rules restrict any use of the information to criminally investigate or prosecute any alcohol or drug abuse patient.[facility]In the event this information is protected by the Federal Confidentiality of Alcohol and Drug Abuse Patient Records regulations: The Federal rules restrict any use of the information to criminally investigate or prosecute any alcohol or drug abuse patient.[facility]In the event this information is protected by the Federal Confidentiality of Alcohol and Drug Abuse Patient Records regulations: The Federal rules restrict any use of the information to criminally investigate or prosecute any alcohol or drug abuse patient.[facility]In the event this information is protected by the Federal Confidentiality of Alcohol and Drug Abuse Patient Records regulations: The Federal rules restrict any use of the information to criminally investigate or prosecute any alcohol or drug abuse patient.[facility] HospitalIn the event this information is protected by the Federal Confidentiality of Alcohol and Drug Abuse Patient Records regulations: The Federal rules restrict any use of the information to criminally investigate or prosecute any alcohol or drug abuse patient.[facility]In the event this information is protected by the Federal Confidentiality of Alcohol and Drug Abuse Patient Records regulations: The Federal rules restrict any use of the information to criminally investigate or prosecute any alcohol or drug abuse patient.[facility]In the event this information is protected by the Federal Confidentiality of Alcohol and Drug Abuse Patient Records regulations: The Federal rules restrict any use of the information to criminally investigate or prosecute any alcohol or drug abuse patient.[facility]In the event this information is protected by the Federal Confidentiality of Alcohol and Drug Abuse Patient Records regulations: The Federal rules restrict any use of the information to criminally investigate or prosecute any alcohol or drug abuse patient.[facility]In the event this information is protected by the Federal Confidentiality of Alcohol and Drug Abuse Patient Records regulations: The Federal rules restrict any use of the information to criminally investigate or prosecute any alcohol or drug abuse patient.[facility]In the event this information is protected by the Federal Confidentiality of Alcohol and Drug Abuse Patient Records regulations: The Federal rules restrict any use of the information to criminally investigate or prosecute any alcohol or drug abuse patient.[facility]In the event this information is protected by the Federal Confidentiality of Alcohol and Drug Abuse Patient Records regulations: The Federal rules restrict any use of the information to criminally investigate or prosecute any alcohol or drug abuse patient.[facility]In the event this information is protected by the Federal Confidentiality of Alcohol and Drug Abuse Patient Records regulations: The Federal rules restrict any use of the information to criminally investigate or prosecute any alcohol or drug abuse patient.[facility]In the event this information is protected by the Federal Confidentiality of Alcohol and Drug Abuse Patient Records regulations: The Federal rules restrict any use of the information to criminally investigate or prosecute any alcohol or drug abuse patient.[facility]In the event this information is protected by the Federal Confidentiality of Alcohol and Drug Abuse Patient Records regulations: The Federal rules restrict any use of the information to criminally investigate or prosecute any alcohol or drug abuse patient.[facility]In the event this information is protected by the Federal Confidentiality of Alcohol and Drug Abuse Patient Records regulations: The Federal rules restrict any use of the information to criminally investigate or prosecute any alcohol or drug abuse patient.[facility]In the event this information is protected by the Federal Confidentiality of Alcohol and Drug Abuse Patient Records regulations: The Federal rules restrict any use of the information to criminally investigate or prosecute any alcohol or drug abuse patient.[facility]In the event this information is protected by the Federal Confidentiality of Alcohol and Drug Abuse Patient Records regulations: The Federal rules restrict any use of the information to criminally investigate or prosecute any alcohol or drug abuse patient.[facility]In the event this information is protected by the Federal Confidentiality of Alcohol and Drug Abuse Patient Records regulations: The Federal rules restrict any use of the information to criminally investigate or prosecute any alcohol or drug abuse patient.[facility]In the event this information is protected by the Federal Confidentiality of Alcohol and Drug Abuse Patient Records regulations: The Federal rules restrict any use of the information to criminally investigate or prosecute any alcohol or drug abuse patient.[facility]In the event this information is protected by the Federal Confidentiality of Alcohol and Drug Abuse Patient Records regulations: The Federal rules restrict any use of the information to criminally investigate or prosecute any alcohol or drug abuse patient.[facility]In the event this information is protected by the Federal Confidentiality of Alcohol and Drug Abuse Patient Records regulations: The Federal rules restrict any use of the information to criminally investigate or prosecute any alcohol or drug abuse patient.[facility]In the event this information is protected by the Federal Confidentiality of Alcohol and Drug Abuse Patient Records regulations: The Federal rules restrict any use of the information to criminally investigate or prosecute any alcohol or drug abuse patient.[facility]In the event this information is protected by the Federal Confidentiality of Alcohol and Drug Abuse Patient Records regulations: The Federal rules restrict any use of the information to criminally investigate or prosecute any alcohol or drug abuse patient.[facility]In the event this information is protected by the Federal Confidentiality of Alcohol and Drug Abuse Patient Records regulations: The Federal rules restrict any use of the information to criminally investigate or prosecute any alcohol or drug abuse patient.[facility]In the event this information is protected by the Federal Confidentiality of Alcohol and Drug Abuse Patient Records regulations: The Federal rules restrict any use of the information to criminally investigate or prosecute any alcohol or drug abuse patient.[facility] HospitalIn the event this information is protected by the Federal Confidentiality of Alcohol and Drug Abuse Patient Records regulations: The Federal rules restrict any use of the information to criminally investigate or prosecute any alcohol or drug abuse patient.[facility]In the event this information is protected by the Federal Confidentiality of Alcohol and Drug Abuse Patient Records regulations: The Federal rules restrict any use of the information to criminally investigate or prosecute any alcohol or drug abuse patient.[facility] HospitalIn the event this information is protected by the Federal Confidentiality of Alcohol and Drug Abuse Patient Records regulations: The Federal rules restrict any use of the information to criminally investigate or prosecute any alcohol or drug abuse patient.[facility] HospitalIn the event this information is protected by the Federal Confidentiality of Alcohol and Drug Abuse Patient Records regulations: The Federal rules restrict any use of the information to criminally investigate or prosecute any alcohol or drug abuse patient.[facility] HospitalIn the event this information is protected by the Federal Confidentiality of Alcohol and Drug Abuse Patient Records regulations: The Federal rules restrict any use of the information to criminally investigate or prosecute any alcohol or drug abuse patient.[facility]In the event this information is protected by the Federal Confidentiality of Alcohol and Drug Abuse Patient Records regulations: The Federal rules restrict any use of the information to criminally investigate or prosecute any alcohol or drug abuse patient.[facility] HospitalIn the event this information is protected by the Federal Confidentiality of Alcohol and Drug Abuse Patient Records regulations: The Federal rules restrict any use of the information to criminally investigate or prosecute any alcohol or drug abuse patient.[facility] HospitalIn the event this information is protected by the Federal Confidentiality of Alcohol and Drug Abuse Patient Records regulations: The Federal rules restrict any use of the information to criminally investigate or prosecute any alcohol or drug abuse patient.[facility] HospitalIn the event this information is protected by the Federal Confidentiality of Alcohol and Drug Abuse Patient Records regulations: The Federal rules restrict any use of the information to criminally investigate or prosecute any alcohol or drug abuse patient.[facility]In the event this information is protected by the Federal Confidentiality of Alcohol and Drug Abuse Patient Records regulations: The Federal rules restrict any use of the information to criminally investigate or prosecute any alcohol or drug abuse patient.[facility]In the event this information is protected by the Federal Confidentiality of Alcohol and Drug Abuse Patient Records regulations: The Federal rules restrict any use of the information to criminally investigate or prosecute any alcohol or drug abuse patient.[facility]In the event this information is protected by the Federal Confidentiality of Alcohol and Drug Abuse Patient Records regulations: The Federal rules restrict any use of the information to criminally investigate or prosecute any alcohol or drug abuse patient.[facility] HospitalIn the event this information is protected by the Federal Confidentiality of Alcohol and Drug Abuse Patient Records regulations: The Federal rules restrict any use of the information to criminally investigate or prosecute any alcohol or drug abuse patient.[facility] HospitalIn the event this information is protected by the Federal Confidentiality of Alcohol and Drug Abuse Patient Records regulations: The Federal rules restrict any use of the information to criminally investigate or prosecute any alcohol or drug abuse patient.[facility] HospitalIn the event this information is protected by the Federal Confidentiality of Alcohol and Drug Abuse Patient Records regulations: The Federal rules restrict any use of the information to criminally investigate or prosecute any alcohol or drug abuse patient.[facility]In the event this information is protected by the Federal Confidentiality of Alcohol and Drug Abuse Patient Records regulations: The Federal rules restrict any use of the information to criminally investigate or prosecute any alcohol or drug abuse patient.[facility]In the event this information is protected by the Federal Confidentiality of Alcohol and Drug Abuse Patient Records regulations: The Federal rules restrict any use of the information to criminally investigate or prosecute any alcohol or drug abuse patient.[facility]In the event this information is protected by the Federal Confidentiality of Alcohol and Drug Abuse Patient Records regulations: The Federal rules restrict any use of the information to criminally investigate or prosecute any alcohol or drug abuse patient.[facility] HospitalIn the event this information is protected by the Federal Confidentiality of Alcohol and Drug Abuse Patient Records regulations: The Federal rules restrict any use of the information to criminally investigate or prosecute any alcohol or drug abuse patient.[facility] HospitalIn the event this information is protected by the Federal Confidentiality of Alcohol and Drug Abuse Patient Records regulations: The Federal rules restrict any use of the information to criminally investigate or prosecute any alcohol or drug abuse patient.[facility] the event this information is protected by the Federal Confidentiality of Alcohol and Drug Abuse Patient Records regulations: The Federal rules restrict any use of the information to criminally investigate or prosecute any alcohol or drug abuse patient.[facility]In the event this information is protected by the Federal Confidentiality of Alcohol and Drug Abuse Patient Records regulations: The Federal rules restrict any use of the information to criminally investigate or prosecute any alcohol or drug abuse patient.[facility]In the event this information is protected by the Federal Confidentiality of Alcohol and Drug Abuse Patient Records regulations: The Federal rules restrict any use of the information to criminally investigate or prosecute any alcohol or drug abuse patient.[facility] HospitalIn the event this information is protected by the Federal Confidentiality of Alcohol and Drug Abuse Patient Records regulations: The Federal rules restrict any use of the information to criminally investigate or prosecute any alcohol or drug abuse patient.[facility] HospitalIn the event this information is protected by the Federal Confidentiality of Alcohol and Drug Abuse Patient Records regulations: The Federal rules restrict any use of the information to criminally investigate or prosecute any alcohol or drug abuse patient.[facility] HospitalIn the event this information is protected by the Federal Confidentiality of Alcohol and Drug Abuse Patient Records regulations: The Federal rules restrict any use of the information to criminally investigate or prosecute any alcohol or drug abuse patient.[facility] HospitalIn the event this information is protected by the Federal Confidentiality of Alcohol and Drug Abuse Patient Records regulations: The Federal rules restrict any use of the information to criminally investigate or prosecute any alcohol or drug abuse patient.[facility] HospitalIn the event this information is protected by the Federal Confidentiality of Alcohol and Drug Abuse Patient Records regulations: The Federal rules restrict any use of the information to criminally investigate or prosecute any alcohol or drug abuse patient.[facility] HospitalIn the event this information is protected by the Federal Confidentiality of Alcohol and Drug Abuse Patient Records regulations: The Federal rules restrict any use of the information to criminally investigate or prosecute any alcohol or drug abuse patient.[facility] HospitalIn the event this information is protected by the Federal Confidentiality of Alcohol and Drug Abuse Patient Records regulations: The Federal rules restrict any use of the information to criminally investigate or prosecute any alcohol or drug abuse patient.[facility] HospitalIn the event this information is protected by the Federal Confidentiality of Alcohol and Drug Abuse Patient Records regulations: The Federal rules restrict any use of the information to criminally investigate or prosecute any alcohol or drug abuse patient.[facility] HospitalIn the event this information is protected by the Federal Confidentiality of Alcohol and Drug Abuse Patient Records regulations: The Federal rules restrict any use of the information to criminally investigate or prosecute any alcohol or drug abuse patient.[facility] HospitalIn the event this information is protected by the Federal Confidentiality of Alcohol and Drug Abuse Patient Records regulations: The Federal rules restrict any use of the information to criminally investigate or prosecute any alcohol or drug abuse patient.[facility] HospitalIn the event this information is protected by the Federal Confidentiality of Alcohol and Drug Abuse Patient Records regulations: The Federal rules restrict any use of the information to criminally investigate or prosecute any alcohol or drug abuse patient.[facility] HospitalIn the event this information is protected by the Federal Confidentiality of Alcohol and Drug Abuse Patient Records regulations: The Federal rules restrict any use of the information to criminally investigate or prosecute any alcohol or drug abuse patient.[facility] HospitalIn the event this information is protected by the Federal Confidentiality of Alcohol and Drug Abuse Patient Records regulations: The Federal rules restrict any use of the information to criminally investigate or prosecute any alcohol or drug abuse patient.[facility] HospitalIn the event this information is protected by the Federal Confidentiality of Alcohol and Drug Abuse Patient Records regulations: The Federal rules restrict any use of the information to criminally investigate or prosecute any alcohol or drug abuse patient.[facility] HospitalIn the event this information is protected by the Federal Confidentiality of Alcohol and Drug Abuse Patient Records regulations: The Federal rules restrict any use of the information to criminally investigate or prosecute any alcohol or drug abuse patient.[facility] HospitalIn the event this information is protected by the Federal Confidentiality of Alcohol and Drug Abuse Patient Records regulations: The Federal rules restrict any use of the information to criminally investigate or prosecute any alcohol or drug abuse patient.[facility] HospitalIn the event this information is protected by the Federal Confidentiality of Alcohol and Drug Abuse Patient Records regulations: The Federal rules restrict any use of the information to criminally investigate or prosecute any alcohol or drug abuse patient.[facility] HospitalIn the event this information is protected by the Federal Confidentiality of Alcohol and Drug Abuse Patient Records regulations: The Federal rules restrict any use of the information to criminally investigate or prosecute any alcohol or drug abuse patient.[facility] HospitalIn the event this information is protected by the Federal Confidentiality of Alcohol and Drug Abuse Patient Records regulations: The Federal rules restrict any use of the information to criminally investigate or prosecute any alcohol or drug abuse patient.[facility] HospitalIn the event this information is protected by the Federal Confidentiality of Alcohol and Drug Abuse Patient Records regulations: The Federal rules restrict any use of the information to criminally investigate or prosecute any alcohol or drug abuse patient.[facility] HospitalIn the event this information is protected by the Federal Confidentiality of Alcohol and Drug Abuse Patient Records regulations: The Federal rules restrict any use of the information to criminally investigate or prosecute any alcohol or drug abuse patient.[facility] Care Teams (unrecognized sec tion and content) Pr Manager Relationship Specialty Start Date End Date Conor Pantoja MD [address] [place] [address] PCP - General Family Practice 09/21/18 Pr Manager Relationship Specialty Start Date End Date Conor Pantoja MD [facility] [place] [address] PCP - General Family Practice 09/21/18 Pr Manager Relationship Specialty Start Date End Date Conor Pantoja MD [facility] [place] [address] PCP - General Family Practice 09/21/18 Pr Manager Relationship Specialty Start Date End Date Conor Pantoja MD [facility] [place] [address] PCP - General Family Practice 09/21/18 Pr Manager Relationship Specialty Start Date End Date Conor Pantoja MD [address] [place] [address] PCP - General Family Practice 09/21/18 Pr Manager Relationship Specialty Start Date End Date Conor Pantoja MD [address] [place] [address] PCP - General Family Practice 09/21/18 Pr Manager Relationship Specialty Start Date End Date Conor Pantoja MD [address] [place] [address] PCP - General Family Practice 09/21/18 Pr Manager Relationship Specialty Start Date End Date Conor Pantoja MD [address] [place] [address] PCP - General Family Practice 09/21/18 Pr Manager Relationship Specialty Start Date End Date Conor Pantoja MD [address] [place] [address] PCP - General Family Practice 09/21/18 Pr Manager Relationship Specialty Start Date End Date Conor Pantoja MD [address] [place] [address] PCP - General Family Practice 09/21/18 Pr Manager Relationship Specialty Start Date End Date Conor Pantoja MD [address] [place] [address] PCP - General Family Practice 09/21/18 Pr Manager Relationship Specialty Start Date End Date Conor Pantoja MD [address] [place] [address] PCP - General Family Medicine 09/21/18 Pr Manager Relationship Specialty Start Date End Date Conor Pantoja MD [address] [place] [address] PCP - General Family Medicine 09/21/18 Pr Manager Relationship Specialty Start Date End Date Conor Pantoja MD [address] [place] [address] PCP - General Family Medicine 09/21/18 Pr Manager Relationship Specialty Start Date End Date Conor Pantoja MD [address] [place] [address] PCP - General Family Medicine 09/21/18 Pr Manager Relationship Specialty Start Date End Date Conor Pantoja MD [address] [place] [address] PCP - General Family Medicine 09/21/18 Pr Manager Relationship Specialty Start Date End Date Conor Pantoja MD [address] [place] [address] PCP - General Family Medicine 09/21/18 Pr Manager Relationship Specialty Start Date End Date Conor Pantoja MD [address] [place] [address] PCP - General Family Medicine 09/21/18 Pr Manager Relationship Specialty Start Date End Date Conor Pantoja MD [address] [place] [address] PCP - General Family Medicine 09/21/18 Team Status: Active Member Role Status Dates No Primary Care Physician Family Provider Active Dr. Conor Pantoja MD Primary Care Provider Active Team Status: Inactive Member Role Status Dates Dr. Jackelin Amaya MD Emergency Provider Active Dr. Conor Pantoja MD Primary Care Provider Active Pr Manager Relationship Specialty Start Date End Date Conor Pantoja MD [address] [place] [address] PCP - General Family Medicine 09/21/18 Pr Manager Relationship Specialty Start Date End Date Conor Pantoja MD [address] [place] [address] PCP - General Family Medicine 09/21/18 Pr Manager Relationship Specialty Start Date End Date Conor Pantoja MD [address] [place] [address] PCP - General Family Medicine 09/21/18 Pr Manager Relationship Specialty Start Date End Date Conor Pantoja MD [address] [place] [address] PCP - General Family Medicine 09/21/18 Pr Manager Relationship Specialty Start Date End Date Conor Pantoja MD [address] [place] [address] PCP - General Family Medicine 09/21/18 Pr Manager Relationship Specialty Start Date End Date Conor Pantoja MD [address] [place] [address] PCP - General Family Medicine 09/21/18 Pr Manager Relationship Specialty Start Date End Date Conor Pantoja MD [address] [place] [address] PCP - General Family Medicine 09/21/18 Pr Manager Relationship Specialty Start Date End Date Conor Pantoja MD [address] [place] [address] PCP - General Family Medicine 09/21/18 Pr Manager Relationship Specialty Start Date End Date Conor Pantoja MD [address] [place] [address] PCP - General Family Medicine 09/21/18 Pr Manager Relationship Specialty Start Date End Date Conor Pantoja MD [address] [place] [address] PCP - General Family Medicine 09/21/18 Pr Manager Relationship Specialty Start Date End Date Conor Pantoja MD [address] [place] [address] PCP - General Family Medicine 09/21/18 Pr Manager Relationship Specialty Start Date End Date Conor Pantoja MD [address] [place] [address] PCP - General Family Medicine 09/21/18 Pr Manager Relationship Specialty Start Date End Date Conor Pantoja MD [address] [place] [address] PCP - General Family Medicine 09/21/18 Pr Manager Relationship Specialty Start Date End Date Conor Pantoja MD [address] [place] [address] PCP - General Family Medicine 09/21/18 Pr Manager Relationship Specialty Start Date End Date Conor Pantoja MD [address] [place] [address] PCP - General Family Medicine 09/21/18 Pr Manager Relationship Specialty Start Date End Date Conor Pantoja MD [address] [place] [address] PCP - General Family Medicine 09/21/18 Pr Manager Relationship Specialty Start Date End Date Conor Pantoja MD [address] [place] [address] PCP - General Family Medicine 09/21/18 Pr Manager Relationship Specialty Start Date End Date Conor Pantoja MD [address] [place] [address] PCP - General Family Medicine 09/21/18 Pr Manager Relationship Specialty Start Date End Date Conor Pantoja MD [address] [facility], [place] [address] PCP - General Family Medicine 09/21/18 Pr Manager Relationship Specialty Start Date End Date Conor Pantoja MD [address] [place] [address] PCP - General Family Medicine 09/21/18 Pr Manager Relationship Specialty Start Date End Date Conor Pantoja MD [address] [place] [address] PCP - General Family Medicine 09/21/18 Pr Manager Relationship Specialty Start Date End Date Conor Pantoja MD [address] [place] [address] PCP - General Family Medicine 09/21/18 Pr Manager Relationship Specialty Start Date End Date Conor Pantoja MD [address] [place] [address] PCP - General Family Medicine 09/21/18 Pr Manager Relationship Specialty Start Date End Date Conor Pantoja MD [address] [place] [address] PCP - General Family Medicine 09/21/18 Pr Manager Relationship Specialty Start Date End Date Conor Pantoja MD [address] [place] [address] PCP - General Family Medicine 09/21/18 Pr Manager Relationship Specialty Start Date End Date Conor Pantoja MD [address] [place] [address] PCP - General Family Medicine 09/21/18 Pr Manager Relationship Specialty Start Date End Date Conor Pantoja MD [address] [place] [address] PCP - General Family Medicine 09/21/18 Pr Manager Relationship Specialty Start Date End Date Conor Pantoja MD [address] [place] [address] PCP - General Family Medicine 09/21/18 Pr Manager Relationship Specialty Start Date End Date Conor Pantoja MD [address] [place] [address] PCP - General Family Medicine 09/21/18 Pr Manager Relationship Specialty Start Date End Date Conor Pantoja MD [address] [place] [address] PCP - General Family Medicine 09/21/18 Asha Rocha, OIL PIPE INSPECTOR HELPER.GRAIN DRIER [address] [place] [address] Administrator Family Medicine 05/01/24 Denice Melissa, OIL PIPE INSPECTOR HELPER.GRAIN DRIER [address] [place] [address] Administrator Family Medicine 05/01/24 Pr Manager Relationship Specialty Start Date End Date Conor Pantoja MD [address] [place] [address] PCP - General Family Medicine 09/21/18 Asha Rocha, OIL PIPE INSPECTOR HELPER.GRAIN DRIER [address] [place] [address] Administrator Family Medicine 05/01/24 Denice Melissa OIL PIPE INSPECTOR HELPER.GRAIN DRIER [address] [facility] [place] [address] [facility] 05/[facility] Pr Manager Relationship Specialty Start Date End Date Conor Pantoja MD [address] [facility] [place] [address] PCP - General Family Medicine 09/21/18 Asha Rocha OIL PIPE INSPECTOR HELPER.GRAIN DRIER [address] [place] [address] Administrator Family Medicine 05/01/24 Denice Melissa OIL PIPE INSPECTOR HELPER.GRAIN DRIER [address] [place] [address] [facility] 05/01/24 Pr Manager Relationship Specialty Start Date End Date Conor Pantoja MD [address] [place] [address] PCP - General Family Medicine 09/21/18 Asha Rocha OIL PIPE INSPECTOR HELPER.GRAIN DRIER [address] [place] [address] [facility] 05/01/24 Denice Melissa OIL PIPE INSPECTOR HELPER.GRAIN DRIER [address] [place] [address] Administrator Family Medicine 05/01/24 Pr Manager Relationship Specialty Start Date End Date Conor Pantoja MD [address] [place] [address] PCP - General Family Medicine 09/21/18 Asha Rocha OIL PIPE INSPECTOR HELPER.GRAIN DRIER [address] [place] [address] Administrator Family [facility] 05/01/24 Denice Melissa APRN.GRAIN DRIER [address] [place] [address] Administrator Family Medicine 05/01/24 Pr Manager Relationship Specialty Start Date End Date Conor Pantoja MD [address] [place] [address] PCP - General Family Medicine 09/21/18 Asha Rocha APRN.GRAIN DRIER [address] [place] [address] Administrator Family Medicine 05/01/24 Denice Melissa APRN.GRAIN DRIER [address] [place] [address] Administrator [facility] 05/01/24 Pr Manager Relationship Specialty Start Date End Date Conor Pantoja MD [address] [place] [address] PCP - General Family Medicine 09/21/18 Asha Rocha APRN.GRAIN DRIER [address] [facility] [place] [address] Administrator Family Medicine 05/01/24 Denice Melissa APRN.GRAIN DRIER [address] [place] [address] Administrator [facility] 05/01/24 Pr Manager Relationship Specialty Start Date End Date Conor Pantoja MD [address] [place] [address] PCP - General Family Medicine 09/21/18 Asha Rocha APRN.GRAIN DRIER [address] [facility] [place] [address] Administrator Family Medicine 05/01/24 Denice Melissa APRN.GRAIN DRIER [address] [facility] [place] [address] Administrator Family Medicine 05/01/24 Pr Manager Relationship Specialty Start Date End Date Conor Pantoja MD [address] [facility] [place] [address] PCP - General Family Medicine 09/21/18 Asha Rocha APRN.GRAIN DRIER [address] [facility] [place] [address] Administrator Family Medicine 05/01/24 Denice Melissa APRN.GRAIN DRIER [address] [facility] [place] [address] Administrator Family Medicine 05/01/24 Pr Manager Relationship Specialty Start Date End Date Conor Pantoja MD [address] [facility] [place] [address] PCP - General Family Medicine 09/21/18 Asha Rocha APRN.GRAIN DRIER [address] [facility] [place] [address] Administrator Family Medicine 05/01/24 Denice Melissa APRN.GRAIN DRIER [address] [facility] [place] [address] Administrator Family Medicine 05/01/24 Pr Manager Relationship Specialty Start Date End Date Conor Pantoja MD [address] [facility] [place] [address] PCP - General Family Medicine 09/21/18 Asha Rocha OIL PIPE INSPECTOR HELPER.GRAIN DRIER [address] [facility] [place] [address] [facility] 05/01/24 Denice Melissa OIL PIPE INSPECTOR HELPER.GRAIN DRIER [address] [facility] [place] [address] [facility] 05/01/24 Pr Manager Relationship Specialty Start Date End Date Conor Pantoja MD [address] [facility] [place] [address] PCP - General Family Medicine 09/21/18 Asha Rocha OIL PIPE INSPECTOR HELPER.GRAIN DRIER [address] [facility] [place] [address] [facility] 05/01/24 Denice Melissa OIL PIPE INSPECTOR HELPER.GRAIN DRIER [address] [facility] [place] [address] [facility] 05/01/24 Pr Manager Relationship Specialty Start Date End Date Conor Pantoja MD [address] [facility] [place] [address] PCP - General Family Medicine 09/21/18 Asha Rocha OIL PIPE INSPECTOR HELPER.GRAIN DRIER [address] [facility] [place] [address] [facility] 05/01/24 Denice Melissa APRN.GRAIN DRIER [address] [facility], [place] [address] [facility] 05/01/24 Pr Manager Relationship Specialty Start Date End Date Conor Pantoja MD [address] [facility], [place] [address] PCP - General Family Medicine 09/21/18 Asha Rocha APRN.GRAIN DRIER [address] [place], [place] [address] [facility] 05/01/24 Denice Melissa APRN.GRAIN DRIER [address] [place] [address] [facility] 05/01/24 Pr Manager Relationship Specialty Start Date End Date Conor Pantoja MD [address] [place], [place] [address] PCP - General Family Medicine 09/21/18 Asha Rocha, OIL PIPE INSPECTOR HELPER.GRAIN DRIER [address] [place] [address] [facility] 05/01/24 Denice Melissa APRN.GRAIN DRIER [address] [place], [place] [address] [facility] 05/01/24 Reason for Visit (unrecogniz ed section and content) Reason Comments Physical Therapy Specialty Diagnoses / Procedures Referred By Tatum t Referred To Contact [facility] Diagnoses Bulging lumbar disc Spinal stenosis of lumbar region without neurogenic claudication Procedures PT REHAB FOLLOW UP ORDER THERAPEUTIC EXERCISES RE, EA 15 MIN. Janice Anne, PT [facility] [address] [place] [address] Referral ID Status Reason Start Date Expiration Date Visits Requested Visits Authorized [id number] Authorized PCP Requested Referral Auto-Generate d Referral 02/09/2023 05/23/2023 12 12 Reason Comments PT Progress Note Reason Comments New Patient SOB, chest pain Specialty Diagnoses / Procedures Referred By Contac t Referred To Contact Cardiology Diagnoses SOB (shortness of breath) Exertional dyspnea KAI (obstructive sleep apnea) Obesity, Class II, BMI 35-39.9 Procedures CONSULT TO CARDIOLOGY OFFICE/OUTPATIENT [facility] MDM 60-74 MINUTES Kitty Trujillo PA-C [address] [place] [address] Referral ID Status Reason Start Date Expiration Date V isits Requested Visits Authorized [id number] Closed PCP Requested Referral 06/13/2021 06/13/2022 1 1 Reason Comments Hearing Loss Reason Comments 09-15-2021 Colon ASC Reason Comments Follow Up cardiac clearance fo r c-scope and follow up seeing ENT Left Knee Pain Low Back Pain Reason Comments Patient Update Reason Comments Cardiac Clearance Procedure Reason Comments Procedure Reason Comments Established Patient Reason Comments clarify order Reason Comments Spirometry Specialty Diagnoses / Procedures Referred By Contac t Referred To Contact [facility] Diagnoses Mild persistent asthma without complication SOB (shortness of breath) Procedures SPIROMETRY - BASELINE AND POST DILATOR BRNCDILAT RSPSE SPMTRY PRE&POST-BRNCDILAT Conor Mcdonnell MD [address] [place] [address] [facility] [address] [place] [address] Referral ID Status Reason Start Date Expiration Date V isits Requested Visits Authorized [id number] Closed Auto-Generate d Referral 10/24/2021 11/23/2022 1 1 Reason Comments Radiology NM Reason Comments Results Reason Comments Recheck 3 month Reason Comments Head Congestion cough and bodyaches x 2 days Reason Comments Recheck 4 week follow up- We llbutrin Reason Comments Med Change Request Reason Comments Follow Up colonoscopy Reason Comments New Patient Specialty Diagnoses / Procedures Referred By Contac t Referred To Contact Diagnoses VILLEGAS (dyspnea on exertion) KAI (obstructive sleep apnea) Procedures CONSULT TO SLEEP MEDICINE - ADULT OFFICE/OUTPATIENT NEW HIGH MDM 60-74 MINUTES Ju French, OIL PIPE INSPECTOR HELPER.GRAIN DRIER [address] [place] [address] Referral ID Status Reason Start Date Expiration Date V isits Requested Visits Authorized [id number] Closed PCP Requested Referral 12/15/2021 12/15/2022 1 1 Reason Comments Established Patient Reason Comments ER F/U Reason Comments New Patient Low Back Pain Right Hip Pain Leg Pain Right Specialty Diagnoses / Procedures Referred By Contac t Referred To Contact [facility] Diagnoses Bulging lumbar disc Spinal stenosis of lumbar region without neurogenic claudication Procedures CONSULT TO [facility] OFFICE/OUTPATIENT NEW HIGH MDM 60-74 MINUTES Conor Pantoja MD [address] [place] [address] Referral ID Status Reason Start Date Expiration Date V isits Requested Visits Authorized [id number] Closed PCP Requested Referral 12/02/2022 12/02/2023 1 1 Reason Comments PT Eval Specialty Diagnoses / Procedures Referred By Contac t Referred To Contact Physical Therapy / PHYSICAL THERAPY Diagnoses Bulging lumbar disc Spinal stenosis of lumbar region without neurogenic claudication Procedures CONSULT TO PHYSICAL THERAPY PHYSICAL THERAPY EVALUATION HIGH COMPLEX 45 MINS Risa Steiner PA-C [address] [place] [address] [facility] [address] [place] [address] Referral ID Status Reason Start Date Expiration Date Visits Re quested Visits Authorized [id number] Closed 01/07/2023 05/23/2023 1 1 Reason Comments Follow Up Low Back Pain Right Hip Pain Leg Pain Right Reason Comments Fast Track Reason Onset Date Comments Refill Request 07/13/2023 Reason Comments Follow Up Low Back Pain Leg Pain Right Reason Comments Refill Request Reason Comments Neck Pain Left side below ear. Feels tight. Shortness of Breath Becomes easily winde d at times lately. Denies edema. Not all the time. Reason Comments Medication Problem Reason Comments Headache Reason Comments Follow Up Specialty Diagnoses / Procedures Referred By Contac t Referred To Contact MR IMAGING Diagnoses Headache, unspecified headache type Mental confusion Procedures MRI BRAIN WO/W IVCON MRI BRAIN BRAIN STEM W/O W/CONTRAST MATERIAL Conor Pantoja MD [address] [place] [address] [place] [address] Referral ID Status Reason Start Date Expiration Date V isits Requested Visits Authorized [id number] Closed Auto-Generate d Referral 12/13/2023 02/11/2024 1 1 Reason Comments Follow Up Reason Comments Consult colonoscopy Specialty Diagnoses / Procedures Referred By Contac t Referred To Contact General Surgery Diagnoses History of colonic polyps Procedures CONSULT TO GENERAL SURGERY OFFICE/OUTPATIENT NEW HIGH MDM 60 MINUTES Conor Pantoja MD [address] [place] [id number] Referral ID Status Reason Start Date Expiration Date V isits Requested Visits Authorized [id number] Closed PCP Requested Referral 12/29/2023 12/28/2024 1 1 Specialty Diagnoses / Procedures Referred By Contac t Referred To Contact [facility] Diagnoses Mild persistent asthma without complication Procedures LUNG VOLUMES Conor Pantoja MD [address] [place] [phone] [facility] [address] [place], [place] [id number] Referral ID Status Reason Start Date Expiration Date V isits Requested Visits Authorized [id number] Closed Auto-Generate d Referral 12/30/2023 05/23/2024 1 1 Specialty Diagnoses / Procedures Referred By Contac t Referred To Contact [facility] Diagnoses Mild persistent asthma without complication Procedures SPIROMETRY WITH DILATOR IF OBSTRUCTED BRNCDILAT RSPSE SPMTRY PRE&POST-BRNCDILAT ADMN Conor Pantoja MD [address] [place] [phone] [facility] [address] [place], [place] [id number] Referral ID Status Reason Start Date Expiration Date V isits Requested Visits Authorized [id number] Closed Auto-Generate d Referral 12/29/2023 01/27/2025 1 1 Reason Onset Date Comments Refill Request 02/01/2024 Reason Comments Follow Up Low Back Pain Leg Pain Right Reason Comments Information Reason Comments New Patient Lower back issues Specialty Diagnoses / Procedures Referred By Contac t Referred To Contact Neurosurgery Diagnoses Lumbar radiculopathy Spinal stenosis of lumbar region without neurogenic claudication Spinal stenosis of lumbar region with neurogenic claudication Bulging lumbar disc Procedures CONSULT TO NEUROSURGERY OFFICE/OUTPATIENT [facility] 60 MINUTES Risa Steiner PA-C [address] [place] [address] Referral ID Status Reason Start Date Expiration Date V isits Requested Visits Authorized [id number] Closed PCP Requested Referral 02/17/2024 05/17/2024 1 1 Specialty Diagnoses / Procedures Referred By Contac t Referred To Contact MR IMAGING Diagnoses Spinal stenosis of lumbar region with neurogenic claudication Procedures MRI LUMBAR SPINE WO IVCON MRI SPINAL CANAL LUMBAR W/O CONTRAST MATERIAL Silas Brwon MD [address] [place] [address] Mr Imaging [facility] Referral ID Status Reason Start Date Expiration Date V isits Requested Visits Authorized [id number] Closed Auto-Generat ed Referral Clearance Not Met - Admin/Chairm an/Director Advise to Postpone/Res chedule or Not Proceed 04/25/2024 06/24/2024 1 1 Reason Comments Consult Specialty Diagnoses / Procedures Referred By Contac t Referred To Contact Diagnoses Pre-op testing Procedures REFER TO [facility] - PREOPERATIVE OPTIMIZATION OFFICE/OUTPATIENT [facility] 60 MINUTES Debora Baldwin, OIL PIPE INSPECTOR HELPER.GRAIN DRIER [id number] [place] [phone] Referral ID Status Reason Start Date Expiration Date V isits Requested Visits Authorized [id number] Closed PCP Requested Referral 04/24/2024 04/24/2025 1 1 Reason Comments FMLA form Reason Comments Insurance Authorization MRI Lumbar Spine WO IVCON Reason Comments Follow Up Reason Comments PT Eval Specialty Diagnoses / Procedures Referred By Contac t Referred To Contact [facility] Diagnoses Lumbar radiculopathy Procedures CONSULT TO PHYSICAL THERAPY PHYSICAL THERAPY EVALUATION [facility] COMPLEX 45 MINS Meghan Naik PA-C [address] [id number] [facility] [place] [address] [place] [address] Referral ID Status Reason Start Date Expiration Date Visits Requested Visits Authorized [id number] Authorized Auto-Generat ed Referral 05/24/2024 05/23/2025 99 99 Reason Comments 6 Month Exam Reason Comments Follow Up Specialty Diagnoses / Procedures Referred By Contac t Referred To Contact [facility] Diagnoses Lumbar radiculopathy Procedures CONSULT TO PHYSICAL THERAPY PHYSICAL THERAPY EVALUATION HIGH COMPLEX 45 MINS Meghan Naik PA-C [address] [place] [address] Phone: tel: fax: [facility] [address] [place] [address] Referral ID Status Reason Start Date Expiration Date Visits Requested Visits Authorized [id number] Authorized Auto-Generat ed Referral 05/24/2024 05/23/2025 99 99 Reason Comments Results COVID Reason Onset Date Comments Refill Request 08/24/2024 Reason Comments Acute Visit Stomach area always feels hot, inflamed, waistline to sternum going on for a couple months, feels like stomach is huge, sweating poop Reason Comments Radiology US Specialty Diagnoses / Procedures Referred By Tatum t Referred To Contact US IMAGING Diagnoses Neck mass Procedures US HEAD/NECK SOFT TISSUE OTHER US SOFT TISSUE HEAD & NECK REAL TIME IMGE DOCM Conor Pantoja MD [address] [place] [address] Phone: tel: fax: [place] [id number] Referral ID Status Reason Start Date Expiration Date V isits Requested Visits Authorized [id number] Closed Auto-Generate d Referral 12/18/2024 01/17/2026 1 1 Reason Comments New Patient Referral from Dr. Rojo: GERD, Abdominal pain, change in bowel function Specialty Diagnoses / Procedures Referred By Tatum t Referred To Contact General Surgery Diagnoses Gastroesophageal reflux disease without esophagitis Change in bowel function Abdominal discomfort Procedures OFFICE/OUTPATIENT NEW HIGH MDM 60 MINUTES Conor Pantoja MD [address] [place] [address] Phone: tel: fax: Referral ID Status Reason Start Date Expiration Date V isits Requested Visits Authorized [id number] Closed PCP Requested Referral 12/18/2024 12/18/2025 1 1 Reason Comments Results Alk phos Reason Comments Radiology NM Specialty Diagnoses / Procedures Referred By Contac t Referred To Contact [facility] Diagnoses Elevated alkaline phosphatase level Procedures NM BONE WHOLE BODY BONE &/JOINT IMAGING WHOLE BODY Conor Pantoja MD [address] [place] [address] Phone: tel: fax: [facility] [address] [place] [address] Phone: tel: Referral ID Status Reason Start Date Expiration Date V isits Requested Visits Authorized [id number] Closed Auto-Generate d Referral 12/27/2024 01/26/2026 1 1 Goals (unrecognized section and content) Goals may be documented in a n alternate section FOR RECORDS PERTAINING TO PATIENTS WHO ARE OR HAVE BEEN ENROLLED IN A CHEMICAL DEPENDENCY/SUBSTANCEABUSE PROGRAM, SOME INFORMATION MAY BE OMITTED. This clinical summary was aggregated from multiple sources. Caution should be exercised in using it in the provision of clinical care. This summary normalizes information from multiple sources, and as a consequence, information in this document may materially change the coding, format and clinical context of patient data. In addition, data may be omitted in some cases. CLINICAL DECISIONS SHOULD BE BASED ON THE PRIMARY CLINICAL RECORDS. [email or web address] provides no warranty or guarantee of the accuracy or completeness of information in this document.
--- NOTE | 2025-05-19 15:40 | RAD_ITS ---
EXAM: XR Chest, 1 View CLINICAL INDICATION: CHEST PAIN TECHNIQUE: Frontal view of the chest. COMPARISON: No relevant prior studies available. FINDINGS: LUNGS AND PLEURAL SPACES: Unremarkable. No consolidation. No pneumothorax. HEART: Unremarkable. No cardiomegaly. MEDIASTINUM: Unremarkable. Normal mediastinal contour. BONES/JOINTS: Unremarkable. No acute fracture. RAD/Chest 1 View (Portable) IMPRESSION: No acute cardiopulmonary process. Reading Location: [id number]
[2025-05-19 15:41] LABS: Hematocrit 44.3 % (40-54); Hemoglobin 15.6 g/dL (13.0-16.5); Immature Granulocytes Count 0.050 X10^3/uL (0.0-0.0); Mean Corp Hgb Conc 35.2 g/dL (32-36); Mean Corpuscular Volume 86.0 fL (80-94); Mean Platelet Vol. 11.0 fl (6.2-12.0); NRBC Flagged by Analyzer 0 % (0-5); Platelet Count 281 K/mm3 (150-450); RBC Distribution Width CV 13.2 % (11.6-14.6); RBC Distribution Width SD 41.4 fl (35.1-43.9); Red Blood Count 5.15 M/mm3 (4.6-6.2); White Blood Count 10.9 K/mm3 (4.4-11.0)
[2025-05-19 16:06] VITALS: BP 158/94; PULSE 82; RESP 18
[2025-05-19 16:16] LABS: Troponin T High Sensitivity 10 ng/L (<=22)
[2025-05-19 16:36] LABS: Anion Gap 12 (7-18); BUN 20 mg/dL (4-19); BUN/Creat Ratio 16.8 RATIO (10-20); Calcium,Total 9.7 mg/dL (7.6-11.0); Carbon Dioxide 23.1 mmol/L (20.0-29.0); Chloride 106 mmol/L (96-106); Glucose 92 mg/dL (70-99); Potassium 4.3 mmol/L (3.5-5.1)
[2025-05-19 17:54] VITALS: BP 139/110; PULSE 55; RESP 18; O2SAT 99
[2025-05-19 18:00] VITALS: BP 140/84; PULSE 69; RESP 18; O2SAT 99
[2025-05-19 18:06] LABS: Troponin T High Sens 2 HR 8 ng/L (<=22)
[2025-05-19] MEDS: Famotidine 200 MG/20 ML MDV 20 MG in 0.9% Normal Saline (Pres. free 8 ML 300 MG IV (18:25)
[2025-05-19 18:48] VITALS: BP 119/95; PULSE 74; RESP 16; TEMP 36.6; O2SAT 99
== END 2025-05-19 18:58 | disposition home or self-care (01) ==
PROVIDERS: Emergency Provider Emergency Medicine; PCP Family Medicine; Visit Provider Emergency Medicine
DX: R07.9 Chest pain, unspecified (principal); R06.02 Shortness of breath; R05.9 Cough, unspecified; J45.909 Unspecified asthma, uncomplicated
CPT/HCPCS: 71045; 80048; 84484; 85025; 87631; 93005; 96374; 96375; 99285; A4216; J2405